=== PATIENT | male | born 1960 | race Caucasian/White ===

== ENCOUNTER 2017-04-06 08:58 | Outpatient (RCR) | payer MEDICARE, OTHER ==
[2017-04-06 09:00] LABS: BASOPHILS % (AUTO) 0 % (0-10); EOSINOPHILS # (AUTO) 0.3 10^3/uL (0.0-0.3); EOSINOPHILS % (AUTO) 3 % (0-10); LYMPHOCYTES # (AUTO) 3.5 X 10^3 (1.0-4.0); LYMPHOCYTES % (AUTO) 27 % (12-44); MEAN CORPUSCULAR HEMOGLOBIN 27 PG (25-34); MEAN CORPUSCULAR HGB CONC 32 G/DL (32-36); MEAN CORPUSCULAR VOLUME 83 FL (80-99); MEAN PLATELET VOLUME 10.1 FL (7.4-10.4); MONOCYTES # (AUTO) 1.1 X 10^3 (0.0-1.0); MONOCYTES % (AUTO) 9 % (0-12); NEUTROPHILS # (AUTO) 7.8 X 10^3 (1.8-7.8); NEUTROPHILS % (AUTO) 61 % (42-75); PLATELET COUNT 322 10^3/uL (130-400); RED BLOOD COUNT 4.84 10^6/uL (4.35-5.85); RED CELL DISTRIBUTION WIDTH 15.8 % (10.0-14.5); WHITE BLOOD COUNT 12.7 10^3/uL (4.3-11.0)
--- NOTE | 2017-04-06 09:07 | Diagnostic Imaging Report ---
PROCEDURE: CT abdomen and pelvis without contrast. TECHNIQUE: Multiple contiguous axial images were obtained through the abdomen and pelvis without the use of intravenous contrast. INDICATION: Five-day history of right upper quadrant pain. I have no priors. FINDINGS: There is irregular soft tissue thickening and irregularity of the cecum and proximal ascending colon. There is induration and increased density of the adjacent pericolonic fat. The appendix itself is visualized and appeared unremarkable. The terminal ileum itself unobstructed and appeared intrinsically unremarkable. Medial to the abnormal segment of large bowel is an irregular mesenteric mass measuring a diameter of 3 cm. Additional smaller presumed nodes are present more cephalad. The next largest has a short axis of 1.3 cm. There is no free intraperitoneal air, and no pathological extraluminal gas collections are found. Inferior to the segment of irregular-appearing large bowel, there is a distal right external iliac chain lymph node measuring 2.2 x 1.2 cm. On the left an external iliac node at the same level has a short axis of 9 mm. There are small periaortic central retroperitoneal nodes, the largest preaortic measuring 1.5 x 0.8 cm. A majority of these had long axises of 1 cm or less. There is no abscess, and there is no small or large bowel obstruction. The liver 's evaluation limited by the absence of contrast. Its density suggests mild steatosis without an identifiable discrete mass or biliary dilatation. The adrenals are negative. There are a few shotty subcentimeter lymph nodes in the upper abdominal celiac region none of which are convincingly pathologic. The pancreas and spleen negative. The unobstructed kidneys normal. Prostate, seminal vesicles, and urinary bladder had an unremarkable appearance. The lung bases and the osseous structures unremarkable. IMPRESSION: Thickening, irregularity, and adjacent infiltration associated with the abnormal-appearing cecum and proximal ascending colon. Findings are felt suspicious for underlying carcinoma particularly given the enlargement and irregularity of adjacent mesenteric maria luisa masses. Shotty periaortic retroperitoneal adenopathy, a few subcentimeter celiac axis lymph nodes, and borderline nodes in the right greater than left external iliac chain. Separable normal appendix and unremarkable TI. While it is conceivable an inflammatory or infectious colitis account for the abnormalities, neoplasm should be excluded and when clinically appropriate endoscopic correlation recommended. Hepatic steatosis. The unopacified liver appearing otherwise nonfocal. Remaining abdominal/ pelvic solid and hollow viscera unremarkable. Report was called and stat faxed to office of Dr. Kearns @ 9:03 AM/michelle. Dictated by: Dictated on workstation # [id number]
[2017-04-06 09:19] LABS: ALANINE AMINOTRANSFERASE 36 U/L (0-55); ALBUMIN 3.8 G/DL (3.2-4.5); ANION GAP 11 MMOL/L (5-14); ASPARTATE AMINO TRANSFERASE 24 U/L (5-34); BILIRUBIN,TOTAL 0.4 MG/DL (0.1-1.0); BLOOD UREA NITROGEN 13 MG/DL (7-18); BUN/CREATININE RATIO 13; CALCIUM 8.9 MG/DL (8.5-10.1); CARBON DIOXIDE 24 MMOL/L (21-32); CHLORIDE 103 MMOL/L (98-107); CREATININE SERUM 0.97 MG/DL (0.60-1.30); GFR ESTIMATED > 60; GLUCOSE 102 MG/DL (70-105); POTASSIUM 4.2 MMOL/L (3.6-5.0); SODIUM 138 MMOL/L (135-145); TOTAL PROTEIN 7.3 G/DL (6.4-8.2)
[2017-04-07] MEDS ORDERED: OXYC-465 PO (12:27)
[2017-04-15] MEDS ORDERED: OXYC-197 PO (11:56)
[2017-04-16] MEDS ORDERED: ENOX40DI13 SQ (11:10)
[2017-05-11] MEDS ORDERED: OXYC-197 PO (11:31)
[2017-05-31] MEDS ORDERED: OXYC-465 PO (11:36)
[2017-05-31] MEDS ORDERED: BISA10SU6 RC (11:36)
[2017-05-31] MEDS ORDERED: CARV3.122 PO (11:36)
[2017-05-31] MEDS ORDERED: LEVO500T2 PO (11:36)
[2017-05-31] MEDS ORDERED: LISI-552 PO (11:36)
[2017-05-31] MEDS ORDERED: AMLO10TA2 PO (11:36)
[2017-05-31] MEDS ORDERED: VITAMIN B17 PO (11:36)
[2017-05-31] MEDS ORDERED: DOCU-143 PO (11:36)
[2017-05-31] MEDS ORDERED: FAMO-119 PO (11:36)
[2017-05-31] MEDS ORDERED: BACL10TA PO (11:36)
[2017-06-14] MEDS ORDERED: LISI10TA2 PO (10:41)
[2017-06-14] MEDS ORDERED: OXC20TCR PO (10:41)
== END 2017-07-05 | disposition home or self-care (01) ==
LOC: RAD 08:58
PROVIDERS: ATTEND Family Medicine
DX: R10.31 Right lower quadrant pain (principal)
CPT/HCPCS: 36415; 74176; 80053; 85025

== ENCOUNTER 2017-04-07 06:57 | Outpatient (CLI) | payer MEDICARE ==
[~2017-04-07] VITALS: Ht 165.1 cm; Wt 111.1 kg
[2017-04-07] MEDS ORDERED: OXYC-465 PO (12:27)
== END 2017-04-07 12:28 ==
LOC: PREOP 06:57
PROVIDERS: ATTEND Surgery
DX: Z01.818 Encounter for other preprocedural examination (principal); K63.9 Disease of intestine, unspecified

== ENCOUNTER 2017-04-08 06:52 | Day surgery (SDC) | payer MEDICARE ==
[~2017-04-08] VITALS: Ht 165.1 cm; Wt 111.1 kg
[~2017-04-08 06:52] MED LIST: OXYC-465 PO
[2017-04-08] MEDS ORDERED: NS IV 500 ML 500 ML ONE (07:12)
[2017-04-08] MEDS ORDERED: FLUMAZENIL (ROMAZICON) 0.1 MG/ML 5 ML VIAL INJ PRN (07:15)
[2017-04-08] MEDS ORDERED: NALOXONE 0.4 MG/ML 1 ML (NARCAN) VIAL IVP PRN (07:15)
[2017-04-08] MEDS ORDERED: NS IV 500 ML 500 ML IV SCH (07:15)
[2017-04-08] MEDS ORDERED: MIDAZOLAM 2 MG/2 ML (VERSED) VIAL ONE ×3 (07:24→07:25)
[2017-04-08] MEDS ORDERED: fentaNYL INJECTION 100 MCG/2 ML AMP ONE ×2 (07:25→07:50)
--- NOTE | 2017-04-08 07:27 | Conscious Sedation/ASA ---
Conscious Sedation Pre-Proced Time Reviewed: 07:27 ASA Class: 2 Airway Mallampati Classification: ([place] appropriate class) I. II. III, IV Lungs Heart ASA score ASA 1: a normal healthy patient ASA 2: a patient with a mild systemic disease (mid diabetes, controlled hypertension, obesity ASA 3: a patient with a severe systemic disease that limits activity (angina , COPD, prior Myocardial infarction) ASA 4: a patient with an incapacitating disease that is a constant threat to life (CHF, renal failure) ASA 5: a moribund patient not expected to survive 24 hrs. (ruptured aneurysm) ASA 6: a declared brain patient whose organs are being harvested. For emergent operations, add the letter E after the classification Grade 2 Sedation Plan: Discussed options with patient/fam Note The patient is an appropriate candidate to undergo the planned procedure, sedation, and anesthesia. The patient immediately re-assessed prior to indication. ASHA SALGADO MD Apr 08, 2017 7:27 am
[2017-04-08] MEDS: fentaNYL INJECTION 100 MCG/2 ML AMP IVP PRN ×4 (07:28→07:55)
[2017-04-08] MEDS: MIDAZOLAM 2 MG/2 ML (VERSED) VIAL IVP PRN ×3 (07:30→07:40)
--- NOTE | 2017-04-08 08:08 | Endoscopy Procedure Report ---
Endoscopy Report Date: Apr 08, 2017 Preoperative Diagnosis: cecal mass Study Performed: Colonoscopy Procedure Instrument: Colonoscope Endo Procedure/Findings Findings 1.: Polyp, Possible Cancer Copy Copies To 1: MONIE PEREZ MD, XAVIER M MD Apr 08, 2017 8:08 am
--- NOTE | 2017-04-08 08:09 | Discharge Inst-Simple/Standard ---
Discharge Inst-Standard Discharge Medications New, Converted or Re-Newed RX: Other Patient Instructions/Follow Up Plan of Care/Instructions/FU: to return for surgery on Tuesday, 14 April as scheduled before Activity as Tolerated: Yes Discharge Diet: No Restrictions ASHA SALGADO MD Apr 08, 2017 8:09 am
[2017-04-08 08:30] VITALS: BP 180/96
--- NOTE | 2017-04-08 08:41 | OPERATIVE REPORT ---
DATE OF SERVICE: 04/08/2017 PROCEDURES: 1. Colonoscopy. 2. Biopsy of cecal tumor. 3. Snare polypectomy x3. 4. Tattooing of cecal lesion. SURGEON: Asha Salgado MD INDICATION FOR PROCEDURE: Evaluation for right lower quadrant pain and a change in his bowel habits revealed a lesion over the cecum, on CT scan. The study was limited due to lack of intravenous contrast. He came in for formal colonoscopy for defining the lesion and planning for surgical therapy. Informed consent was obtained after reviewing the procedure in detail. DESCRIPTION OF PROCEDURE: He was placed in left lateral decubitus position and his vital signs were monitored. Conscious sedation was achieved using Versed and fentanyl. Digital rectal examination was unremarkable. The colonoscope was then introduced into the rectum and advanced all the way up to the cecum. The scope was then withdrawn slowly and the mucosa examined in a systematic fashion. FINDINGS: 1. A 5 mm pedunculated polyp at the distal transverse colon that was snared and retrieved. 2. Two polyps, about 3 mm each, adjacent to each other at the mid transverse colon. These were snared and retrieved as well. 3. A 2 mm polyp at hepatic flexure that was snared. It could not be retrieved due to technical difficulties. 4. Proliferative lesion with everted edges at the ileocecal junction, having the appearance of a carcinoma. It occupied at least 50% of the circumference of the cecum. Photo documentation and multiple biopsies were obtained. The area was then tattooed with Radha ink for identification during minimally invasive resection. He tolerated the procedure well and was taken back to the nursing area in a stable condition. IMPRESSION: Cecal mass found on CT confirmed to be a carcinoma by endoscopic appearance. Incidental multiple polyps excised. Note: The patient is scheduled to undergo robotic-assisted right hemicolectomy in 3-4 days. Job ID: [id number] DocumentID: [id number] Dictated Date: 04/08/2017 08:07:58 Hand Carver Date: 04/08/2017 08:41:22 Dictated By: ASHA SALGADO MD [facility]
[2017-04-08 08:46] VITALS: BP 156/95
[2017-04-08 09:00] VITALS: BP_SYST 138; BP_SYST 156; BP_DIAS 78; BP_DIAS 95
[2017-04-08 10:50] VITALS: BP 156/95
== END 2017-04-08 10:45 | disposition home or self-care (01) ==
LOC: ENDO 06:52
PROVIDERS: ATTEND Surgery
DX: C18.0 Malignant neoplasm of cecum (principal); D12.3 Benign neoplasm of transverse colon; F17.210 Nicotine dependence, cigarettes, uncomplicated

== ENCOUNTER 2017-04-08 09:34 | Outpatient (CLI) | payer MEDICARE ==
[~2017-04-08] VITALS: Ht 165.1 cm; Wt 111.1 kg
[2017-04-08 10:18] LABS: BASOPHILS # (AUTO) 0.1 10^3/uL (0.0-0.1); BASOPHILS % (AUTO) 1 % (0-10); EOSINOPHILS # (AUTO) 0.3 10^3/uL (0.0-0.3); EOSINOPHILS % (AUTO) 3 % (0-10); LYMPHOCYTES # (AUTO) 2.3 X 10^3 (1.0-4.0); LYMPHOCYTES % (AUTO) 24 % (12-44); MEAN CORPUSCULAR HEMOGLOBIN 27 PG (25-34); MEAN CORPUSCULAR HGB CONC 32 G/DL (32-36); MEAN CORPUSCULAR VOLUME 83 FL (80-99); MEAN PLATELET VOLUME 10.1 FL (7.4-10.4); MONOCYTES # (AUTO) 0.5 X 10^3 (0.0-1.0); MONOCYTES % (AUTO) 5 % (0-12); NEUTROPHILS # (AUTO) 6.5 X 10^3 (1.8-7.8); NEUTROPHILS % (AUTO) 68 % (42-75); PLATELET COUNT 399 10^3/uL (130-400); RED BLOOD COUNT 5.04 10^6/uL (4.35-5.85); RED CELL DISTRIBUTION WIDTH 15.6 % (10.0-14.5); WHITE BLOOD COUNT 9.5 10^3/uL (4.3-11.0)
[2017-04-08 10:39] LABS: ALANINE AMINOTRANSFERASE 28 U/L (0-55); ALBUMIN 3.9 G/DL (3.2-4.5); ANION GAP 12 MMOL/L (5-14); ASPARTATE AMINO TRANSFERASE 20 U/L (5-34); BILIRUBIN,TOTAL 0.3 MG/DL (0.1-1.0); BLOOD UREA NITROGEN 12 MG/DL (7-18); BUN/CREATININE RATIO 11; CALCIUM 9.2 MG/DL (8.5-10.1); CARBON DIOXIDE 25 MMOL/L (21-32); CHLORIDE 104 MMOL/L (98-107); CREATININE SERUM 1.06 MG/DL (0.60-1.30); GFR ESTIMATED > 60; GLUCOSE 123 MG/DL (70-105); POTASSIUM 4.2 MMOL/L (3.6-5.0); SODIUM 141 MMOL/L (135-145); TOTAL PROTEIN 7.5 G/DL (6.4-8.2)
== END 2017-04-08 10:19 | disposition home or self-care (01) ==
LOC: PREOP 09:34
PROVIDERS: ATTEND Surgery
DX: Z01.812 Encounter for preprocedural laboratory examination (principal); Z11.2 Encounter for screening for other bacterial diseases; K63.9 Disease of intestine, unspecified
CPT/HCPCS: 36415; 80053; 85025; 86850; 86900; 86901; 87081

== ENCOUNTER 2017-04-13 05:59 | Inpatient (IN) | payer MEDICARE ==
[~2017-04-13] VITALS: Ht 165.1 cm; Wt 111.1 kg
[2017-04-13] VITALS (12 sets, daily range): BP systolic 50–172; BP diastolic 74–99
[2017-04-13] MEDS ORDERED: metroNIDAZOLE 500MG/100ML IVPB 100 ML ONE (06:29)
[2017-04-13] MEDS ORDERED: ceFAZolin 2 GM/50 ML NS 50 ML ONE (06:30)
[2017-04-13] MEDS: LACTATED RINGERS 1,000 ML IV PRN ×4 (06:42→17:06)
[2017-04-13] MEDS ORDERED: metroNIDAZOLE 500 MG/100 ML IVPB (PRE-MIX) IV ONE (06:45)
[2017-04-13] MEDS ORDERED: CATHETER FLUSH 10 ML SYR IV PRN (06:45)
[2017-04-13] MEDS ORDERED: ceFAZolin 2 GM/NS 50 ML IV ONE (06:45)
[2017-04-13] MEDS ORDERED: MIDAZOLAM 2 MG/2 ML (VERSED) VIAL IV ONE (06:45)
[2017-04-13] MEDS ORDERED: fentaNYL INJECTION 100 MCG/2 ML AMP ONE ×3 (06:52→13:13)
[2017-04-13] MEDS ORDERED: ROCURONIUM 50 MG/5 ML (ZEMURON) VIAL IV ONE ×2 (06:52→08:46)
[2017-04-13] MEDS ORDERED: MIDAZOLAM 2 MG/2 ML (VERSED) VIAL ONE (06:52)
[2017-04-13] MEDS ORDERED: proPOfol 200 MG/20 ML (DIPRIVAN) VIAL IV ONE (06:52)
[2017-04-13] MEDS ORDERED: LIDOCAINE PF 2% 5 ML (XYLOCAINE) VIAL ONE (06:54)
[2017-04-13] MEDS ORDERED: ONDANSETRON 4 MG/2 ML (SDV) Z0FRAN ONE (06:55)
[2017-04-13] MEDS ORDERED: SEVOFLURANE (ULTANE) 15 ML INHAL SOLN ONE ×14 (06:55→11:42)
[2017-04-13] MEDS ORDERED: DEXAMETHASONE PF 10 MG/ML (DECADRON) VIAL ONE (06:55)
[2017-04-13] MEDS ORDERED: BUP/EPI 0.25% 1:200,000 (MARCAINE) 30 ML VIAL ONE (07:02)
--- NOTE | 2017-04-13 08:05 | Progress Note-Pre Operative ---
Pre-Operative Progress Note H&P Reviewed The H&P was reviewed, patient examined and no changes noted. Date Seen by Provider: Apr 13, 2017 Time Seen by Provider: 08:05 Date H&P Reviewed: Apr 13, 2017 Time H&P Reviewed: 08:05 Pre-Operative Diagnosis: Carcinoma of cecum ASHA SALGADO MD Apr 13, 2017 8:05 am
[2017-04-13] MEDS ORDERED: BUPIVACAINE 0.25% 30 ML (SENSORCAINE) VIAL ONE (10:59)
[2017-04-13] MEDS ORDERED: NEOSTIGMINE (BLOXIVERZ ) 1 MG/1ML 10 ML VIAL ONE (11:03)
[2017-04-13] MEDS ORDERED: GLYCOPYRROLATE 0.2 MG/ML (ROBINUL) 2 ML VIAL ONE (11:03)
[2017-04-13] MEDS ORDERED: morphine INJ 10 MG/ML 1ML (SYR OR VIAL) ONE (11:03)
[2017-04-13] MEDS ORDERED: LACTATED RINGERS 1,000 ML IV PRN (11:27)
--- NOTE | 2017-04-13 11:27 | Progress Note-Post Operative ---
Post-Operative Progess Note Surgeon (s)/Coin Machine Collector (s) Surgeon ASHA SALGADO MD Coin Machine Collector: not applicable Pre-Operative Diagnosis Carcinoma of cecum Post-Operative Diagnosis ssame Procedure & Operative Findings Date of Procedure 04/13/17 Procedure Performed/Findings robotic assisted, converted to open right wilfredo- colectomy Anesthesia Type Gen. Estimated Blood Loss Estimated blood loss (mL): 700 mL Specimens/Packing Specimens Removed right colon ASHA SALGADO MD Apr 13, 2017 11:27 am
[2017-04-13] MEDS ORDERED: ONDANSETRON 4 MG/2 ML (SDV) Z0FRAN IVP PRN ×2 (11:30→12:00)
[2017-04-13] MEDS: morphine INJ 10 MG/ML 1ML (SYR OR VIAL) IVP PRN ×2 (11:50→11:55)
[2017-04-13] MEDS: HYDROmorphone (DILAUDID) 2 MG/ML VIAL IVP PRN ×4 (12:10→12:40)
--- NOTE | 2017-04-13 12:22 | OPERATIVE REPORT ---
DATE OF SERVICE: 04/13/2017 PREOPERATIVE DIAGNOSIS: Carcinoma of the cecum. POSTOPERATIVE DIAGNOSIS: Carcinoma of the cecum. OPERATION: Robotic, converted to open, right hemicolectomy with anastomosis. SURGEON: Zain ANESTHESIA: General anesthesia. BLOOD LOSS: 700 cc FLUIDS: 3 L of crystalloid. TYPE OF WOUND: Type 3 (contaminated wound). INDICATION FOR PROCEDURE: This gentleman was found to have a carcinoma of the cecum when he was investigated for right lower quadrant pain of short duration. CT scan showed enlarged lymph glands along the ileocolic pedicle as well. He was offered minimally invasive resection using robotic assistance and intracorporal anastomosis. However, as it turned out, due to bleeding from a large lymph gland associated with the ileocolic pedicle, it was required to convert to an open procedure. Informed consent was obtained after reviewing the procedure in detail and highlighting complications of postoperative wound infection, anastomotic leak and cardiorespiratory dysfunction. DESCRIPTION OF PROCEDURE: Initially, I attempted to place a subclavian central venous catheter, but the guidewire could not be advanced. Therefore, further attempts were abandoned and our VISUAL SPECIALIST obtained a second IV access over the left upper extremity. We then proceeded with resection. ROBOTIC-ASSISTED/CONVERTED TO OPEN RIGHT HEMICOLECTOMY: Abdomen was prepared and draped in the usual sterile manner. A Ratliff catheter was placed to monitor urine output during the perioperative period. Pneumoperitoneum was established using a Veress needle introduced superolateral to the umbilicus along the left side. Intraabdominal pressure was maintained at 15 mmHg using carbon dioxide insufflation. A 12 mm trocar was placed and anatomy visualized using the high definition, 3-dimensional laparoscope associated with da Moriah system. The tumor was identified easily and found to have infiltration into the anterior abdominal wall. In addition, large lymph glands were also seen along the mesentery. Under direct view, I placed a stapler trocar over the left lower quadrant, followed by an 8 mm trocar over the suprapubic region. Another 8 mm trocar was placed over the subxiphoid region to facilitate using the robotic 3rd arm. The right side of his body was then tilted up to facilitate dissection along the right colon. The robotic system was then docked in place. Initial laparoscopic survey did not reveal any lesions on the surface of the liver. The right colon was then held up using a grasper introduced via the 3rd arm and I began the dissection along the ileocolic pedicle. Using the vessel sealing device, dissection was commenced identifying a large lymph gland along the ileocolic pedicle. While I made attempts to dissect proximal to the lymph node, severe venous bleeding was encountered and could not be controlled using robotic techniques. Therefore,a decision to convert to an open procedure was made. A 12 cm midline incision was made and the abdomen entered safely. The area was then packed for reassessment. The venous bleeding had ceased by the time abdomen was opened. Terminal ileum was transected using a OPAL-75 stapler and the ileocolic pedicle controlled using a combination of 2-0 silk transfixation sutures and Harmonic scalpel. The cluster of mesocolic lymph glands was removed en bloc with the specimen. The proximal transverse colon was then mobilized, the omentum using the Harmonic scalpel. Duodenum was carefully kept out of harm's way. The right colon was then retracted medially by incising the white line of Toldt. Right colic pedicle was controlled using Harmonic scalpel as well. The proximal transverse colon was then transected using a OPAL-75 stapler, preserving the middle colic pedicle. The specimen was then removed in preparation for anastomosis. A nowj-da-dvss anastomosis was then created using a OPAL-75 stapler. The colotomy and the common enterotomy were closed using a TA-60 stapling device. A 3-0 silk suture was placed along the crotch of the anastomosis to avoid any tension on the staple line. Omentum was then placed over the anastomosis and the abdomen irrigated with saline. Linea alba was closed using #2 Prolene. Subcutaneous tissue was approximated using 2-0 PDS suture and skin with 4-0 Vicryl in a subcuticular fashion. The trocar incisions were closed using 4-0 Vicryl in a subcuticular fashion. Marcaine 0.25% with epinephrine was infiltrated along the incisions, both preemptively and at the conclusion of the operation. He tolerated the procedure well, was extubated in the operating room and taken to the recovery room in a stable condition. [place], sponges and instruments were correct at the end of the operation. Job ID: [id number] DocumentID: [id number] Dictated Date: 04/13/2017 11:26:40 Butane Compressor Operator Date: 04/13/2017 12:21:48 Dictated By: MD CONSTANTIN HAGEN
[2017-04-13] MEDS: fentaNYL INJECTION 100 MCG/2 ML AMP IV PRN ×3 (13:36→23:10)
[2017-04-13] MEDS ORDERED: KETOROLAC 30 MG/ML VIAL IVP NR (14:45)
[2017-04-13] MEDS: ceFAZolin INJECTION 1,000 MG in NS (IVPB) 50 ML IV SCH ×2 (15:05→22:15)
[2017-04-13] MEDS: metroNIDAZOLE 500MG/100ML IVPB 100 ML IV SCH ×2 (15:41→22:14)
[2017-04-13] MEDS ORDERED: oxyCODONE/APAP 10/325MG (PERCOCET 10) TABLET PO PRN (17:15)
[2017-04-13] MEDS ORDERED: oxyCODONE/APAP 10/325MG (PERCOCET 10) TABLET PO ONE (17:29)
[2017-04-13] MEDS: oxyCODONE/APAP 10/325MG (PERCOCET 10) TABLET PO PRN (17:34)
[2017-04-13] MEDS ORDERED: NICOTINE 14 MG (NICODERM) PATCH TD NR (19:30)
[2017-04-13] MEDS ORDERED: DIAZEPAM INJ 10 MG/2 ML (VALIUM) SYR IV NR (21:00)
[2017-04-14] VITALS (10 sets, daily range): BP systolic 132–171; BP diastolic 73–88
[2017-04-14] MEDS: fentaNYL INJECTION 100 MCG/2 ML AMP IV PRN ×10 (02:03→23:51)
[2017-04-14] MEDS: LACTATED RINGERS 1,000 ML IV PRN (03:12)
[2017-04-14 03:49] LABS: BASOPHILS % (AUTO) 0 % (0-10); EOSINOPHILS % (AUTO) 0 % (0-10); LYMPHOCYTES # (AUTO) 1.7 X 10^3 (1.0-4.0); LYMPHOCYTES % (AUTO) 15 % (12-44); MEAN CORPUSCULAR HEMOGLOBIN 26 PG (25-34); MEAN CORPUSCULAR HGB CONC 32 G/DL (32-36); MEAN CORPUSCULAR VOLUME 83 FL (80-99); MEAN PLATELET VOLUME 9.6 FL (7.4-10.4); MONOCYTES # (AUTO) 1.2 X 10^3 (0.0-1.0); MONOCYTES % (AUTO) 11 % (0-12); NEUTROPHILS # (AUTO) 8.5 X 10^3 (1.8-7.8); NEUTROPHILS % (AUTO) 74 % (42-75); PLATELET COUNT 392 10^3/uL (130-400); RED BLOOD COUNT 4.18 10^6/uL (4.35-5.85); RED CELL DISTRIBUTION WIDTH 16.2 % (10.0-14.5); WHITE BLOOD COUNT 11.5 10^3/uL (4.3-11.0)
[2017-04-14 04:06] LABS: ANION GAP 8 MMOL/L (5-14); BLOOD UREA NITROGEN 14 MG/DL (7-18); BUN/CREATININE RATIO 16; CALCIUM 8.2 MG/DL (8.5-10.1); CARBON DIOXIDE 23 MMOL/L (21-32); CHLORIDE 108 MMOL/L (98-107); CREATININE SERUM 0.88 MG/DL (0.60-1.30); GFR ESTIMATED > 60; GLUCOSE 142 MG/DL (70-105); PHOSPHORUS 3.1 MG/DL (2.3-4.7); POTASSIUM 4.3 MMOL/L (3.6-5.0); SODIUM 139 MMOL/L (135-145)
[2017-04-14] MEDS ORDERED: POTASSIUM CL 10MEQ/50ML IVPB 50 ML IV SCH (06:00)
[2017-04-14] MEDS ORDERED: KCL 20 MEQ TAB (K-DUR) PO SCH (06:00)
[2017-04-14] MEDS ORDERED: MAGNESIUM 1 GM/100 ML IVPB 100 ML IV SCH (06:00)
[2017-04-14] MEDS: oxyCODONE/APAP 10/325MG (PERCOCET 10) TABLET PO PRN ×5 (06:06→23:47)
[2017-04-14] MEDS ORDERED: NICOTINE PATCH REMOVAL TP SCH (08:59)
[2017-04-14] MEDS ORDERED: SIMETHICONE 80 MG (MYLICON) CHEW ONE (09:12)
[2017-04-14] MEDS ORDERED: SIMETHICONE 80 MG (MYLICON) CHEW PO PRN (09:15)
[2017-04-14] MEDS: NICOTINE 14 MG (NICODERM) PATCH TD SCH (09:20)
[2017-04-14] MEDS: NICOTINE PATCH REMOVAL TP SCH (09:21)
[2017-04-14] MEDS ORDERED: KETOROLAC 15 MG/ML VIAL ONE (10:53)
[2017-04-14] MEDS: KETOROLAC 15 MG/ML VIAL IVP PRN ×3 (11:00→22:27)
[2017-04-14] MEDS: METOCLOPRAMIDE INJ 10 MG/2 ML (REGLAN) IVP SCH ×3 (11:04→23:44)
[2017-04-14] MEDS: ENOXAPARIN 40 MG/0.4 ML (LOVENOX) SYR SC SCH (11:05)
--- NOTE | 2017-04-14 11:14 | Progress Note-Standard ---
Standard Progress Note Progress Notes/Assess & Plan Date Seen by Provider: Apr 14, 2017 Time Seen by Provider: 11:13 Progress/Assessment & Plan postoperative pain and resolved. Will use Toradol. Incisions dry. Mild epigastric fullness possibly due to gastric dilatation. Encouraged incentive spirometry routine postoperative care. Final Diagnosis carcinoma of cecum ASHA SALGADO MD Apr 14, 2017 11:14
--- NOTE | 2017-04-14 13:49 | Anesthesia-General Post-Op ---
General Patient Condition Mental Status/LOC: Same as Preop Cardiovascular: Satisfactory Nausea/Vomiting: Absent Respiratory: Satisfactory Pain: Controlled Complications: Absent Post Op Complications Complications None Follow Up Care/Instructions Patient Instructions None needed. Anesthesia/Patient Condition Patient Condition Patient is doing well, no complaints, stable vital signs, no apparent adverse anesthesia problems. No complications reported per nursing. NORY CARTER CRNA Apr 14, 2017 13:49
[2017-04-14] MEDS ORDERED: NICOTINE 14 MG (NICODERM) PATCH TD SCH (19:00)
[2017-04-15] VITALS: BP 135/78
[2017-04-15] MEDS: fentaNYL INJECTION 100 MCG/2 ML AMP IV PRN ×8 (03:09→16:28)
[2017-04-15] MEDS: KETOROLAC 15 MG/ML VIAL IVP PRN (03:47)
[2017-04-15 04:00] VITALS: BP 133/85
[2017-04-15 04:34] LABS: BASOPHILS % (AUTO) 0 % (0-10); EOSINOPHILS # (AUTO) 0.1 10^3/uL (0.0-0.3); EOSINOPHILS % (AUTO) 1 % (0-10); LYMPHOCYTES # (AUTO) 2.8 X 10^3 (1.0-4.0); LYMPHOCYTES % (AUTO) 25 % (12-44); MEAN CORPUSCULAR HEMOGLOBIN 26 PG (25-34); MEAN CORPUSCULAR HGB CONC 31 G/DL (32-36); MEAN CORPUSCULAR VOLUME 84 FL (80-99); MEAN PLATELET VOLUME 10.2 FL (7.4-10.4); MONOCYTES # (AUTO) 0.8 X 10^3 (0.0-1.0); MONOCYTES % (AUTO) 7 % (0-12); NEUTROPHILS # (AUTO) 7.5 X 10^3 (1.8-7.8); NEUTROPHILS % (AUTO) 67 % (42-75); PLATELET COUNT 361 10^3/uL (130-400); RED BLOOD COUNT 3.97 10^6/uL (4.35-5.85); RED CELL DISTRIBUTION WIDTH 16.6 % (10.0-14.5); WHITE BLOOD COUNT 11.2 10^3/uL (4.3-11.0)
[2017-04-15 04:57] LABS: ANION GAP 10 MMOL/L (5-14); BLOOD UREA NITROGEN 13 MG/DL (7-18); BUN/CREATININE RATIO 15; CALCIUM 8.5 MG/DL (8.5-10.1); CARBON DIOXIDE 23 MMOL/L (21-32); CHLORIDE 107 MMOL/L (98-107); CREATININE SERUM 0.88 MG/DL (0.60-1.30); GFR ESTIMATED > 60; GLUCOSE 122 MG/DL (70-105); POTASSIUM 3.9 MMOL/L (3.6-5.0); SODIUM 140 MMOL/L (135-145)
[2017-04-15] MEDS: METOCLOPRAMIDE INJ 10 MG/2 ML (REGLAN) IVP SCH ×2 (06:14→11:27)
[2017-04-15] MEDS: oxyCODONE/APAP 10/325MG (PERCOCET 10) TABLET PO PRN ×2 (06:29→12:35)
[2017-04-15 08:00] VITALS: BP 125/76
[2017-04-15 08:30] VITALS: BP 130/72
[2017-04-15] MEDS: NICOTINE PATCH REMOVAL TP SCH (09:05)
[2017-04-15] MEDS: NICOTINE 14 MG (NICODERM) PATCH TD SCH ×2 (09:06→11:23)
[2017-04-15] MEDS: ENOXAPARIN 40 MG/0.4 ML (LOVENOX) SYR SC SCH (11:27)
--- NOTE | 2017-04-15 11:54 | Progress Note-Standard ---
Standard Progress Note Progress Notes/Assess & Plan Date Seen by Provider: Apr 15, 2017 Time Seen by Provider: 11:52 Progress/Assessment & Plan postoperative pain and resolved. Will use Toradol. Incisions dry. Mild epigastric fullness possibly due to gastric dilatation. Encouraged incentive spirometry routine postoperative care. 04/15/17:Doing well. Has passed flatus and had BMs. Incisions dry. Could be discharged home Final Diagnosis Carcinoma of cecum ASHA SALGADO MD Apr 15, 2017 11:54 am
[2017-04-15] MEDS ORDERED: OXYC-197 PO (11:56)
--- NOTE | 2017-04-15 11:58 | Discharge Inst-Simple/Standard ---
Discharge Inst-Standard Discharge Medications New, Converted or Re-Newed RX: RX on Chart Patient Instructions/Follow Up Plan of Care/Instructions/FU: F/U in 1 week. Please leave a message @ 0742 Activity as Tolerated: No Goal: No lifting Discharge Diet: Soft Diet ASHA SALGADO MD Apr 15, 2017 11:58 am
[2017-04-15 12:55] VITALS: BP 127/66
[2017-04-15 16:45] VITALS: BP 127/66
--- NOTE | 2017-04-15 23:09 | DISCHARGE SUMMARY ---
DATE OF SERVICE: 04/15/2017 DIAGNOSIS: Carcinoma of the cecum. OPERATION: Right hemicolectomy. This gentleman was found to have a carcinoma of the cecum with lymph node metastasis. He underwent a right hemicolectomy and has made a reasonable recovery. At the time of discharge, he is ambulating independently and has had bowel movements. He is also tolerating a soft diet. I have instructed him to contact me with any concerns over the weekend and return for a followup in 1 week. Job ID: [id number] DocumentID: [id number] Dictated Date: 04/15/2017 11:55:15 Recovery Manager Date: 04/15/2017 12:34:31 Dictated By: ASHA SALGADO MD
[2017-04-16] MEDS ORDERED: ENOX40DI13 SQ (11:10)
== END 2017-04-15 16:45 | disposition home or self-care (01) | DRG 330 ==
LOC: 4TH 05:59 → SURG 06:00 → EDSTATUS 10:30 → ICU 13:05 → 4TH 04-15 08:05 → ENPENDDIS 04-15 16:00
PROVIDERS: ADMIT Surgery; ATTEND Surgery
PROC: 8E0W4CZ Robotic Assisted Procedure of Trunk Region, Percutaneous Endoscopic Approach (ICD-10-PCS; 2017-04-13)
PROC: 0DTF0ZZ Resection of Right Large Intestine, Open Approach (ICD-10-PCS; principal; 2017-04-13 08:09)
PROC: 07BB4ZZ Excision of Mesenteric Lymphatic, Percutaneous Endoscopic Approach (ICD-10-PCS; 2017-04-13 08:09)
DX: C18.0 Malignant neoplasm of cecum (principal); K91.61 Intraoperative hemorrhage and hematoma of a digestive system organ or structure complicating a digestive system procedure; R59.0 Localized enlarged lymph nodes; M17.0 Bilateral primary osteoarthritis of knee; F17.210 Nicotine dependence, cigarettes, uncomplicated; D12.6 Benign neoplasm of colon, unspecified; C77.2 Secondary and unspecified malignant neoplasm of intra-abdominal lymph nodes
CPT/HCPCS: 36415; 80048; 83735; 84100; 85025; 88305; 88309; 93005; 94664

== ENCOUNTER 2017-05-06 05:34 | Outpatient (CLI) | payer MEDICARE ==
[~2017-05-06] VITALS: Ht 165.1 cm; Wt 111.1 kg
[~2017-05-06 05:34] MED LIST changes: +ENOX40DI13 SQ; +OXYC-197 PO
== END 2017-05-06 12:01 ==
LOC: PREOP 05:34
PROVIDERS: ATTEND Surgery
DX: Z01.818 Encounter for other preprocedural examination (principal); C18.9 Malignant neoplasm of colon, unspecified

== ENCOUNTER 2017-05-11 09:39 | Day surgery (SDC) | payer MEDICARE, OTHER ==
[~2017-05-11] VITALS: Ht 165.1 cm; Wt 111.1 kg
--- NOTE | 2017-05-11 08:51 | History & Physicial ---
History of Present Illness History of Present Illness Reason for visit/HPI For Iqzdme-p-Dgil placement to facilitate adjuvant chemotherapy Date of Admission Time Seen by Provider: 08:51 I consulted on this patient on 05/11/17 08:49 Attending Physician Asha Salgado MD Admitting Physician Colby Kearns MD Consult Allergies and Home Medications Allergies Coded Allergies: No Known Drug Allergies (Unverified , 04/07/17) Home Medications Oxycodone HCl/Acetaminophen 1 Each Tablet, 2 EACH PO Q4H PRN for ABDOMINAL PAIN , #60 Prescribed by: ASHA SALGADO on 04/15/17 1156 Past Obrxuhp-Pdvokt-Ckktrf Hx Patient Social History Marrital Status: Employed/Student: retired Alcohol Use: Occasionally Uses Smoking Status: Current Everyday Smoker Type Used: Cigarettes Recent Hopitalizations: No Immunizations Up To Date Tetanus Booster (TDap): Unknown Seasonal Allergies Seasonal Allergies: Yes Surgeries HX Surgeries: Yes Surgeries: Bowel Surgery, Tonsillectomy Respiratory Hx Respiratory Disorders: Yes Respiratory Disorders: COPD Cardiovascular Hx Cardiovascular Disorders: No Neurological Hx Neurological Disorders: No Reproductive System Hx Reproductive Disorders: No Genitourinary Hx Genitourinary Disorders: No Gastrointestinal Hx Gastrointestinal Disorders: Yes (cecal mass, RLQ pain) Musculoskeletal Hx Musculoskeletal Disorders: Yes Musculoskeletal Disorders: Arthritis Endocrine Hx Endocrine Disorders: No HEENT HX ENT Disorders: No Loss of Vision: Bilateral Hearing Impairment: Denies Cancer Hx Cancer: Yes Cancer: Colon Psychosocial Hx Psychiatric Problems: No Integumentary HX Skin/Integumentary Disorder: No Blood Transfusions Hx Blood Disorders: No Constitutional: no symptoms reported EENTM: no symptoms reported Respiratory: no symptoms reported Cardiovascular: no symptoms reported Gastrointestinal: no symptoms reported Genitourinary: no symptoms reported Musculoskeletal: joint pain, muscle pain, muscle stiffness Skin: no symptoms reported Psychiatric/Neurological: No Symptoms Reported Physical Exam Vital Signs Capillary Refill : General Appearance: No Apparent Distress HEENT: Normal ENT Inspection Neck: Normal Inspection Respiratory: Lungs Clear Cardiovascular: Regular Rate, Rhythm Gastrointestinal: Non Tender, Soft Rectal: Deferred Neurologic/Psychiatric: Alert, Oriented x3 Skin: Warm/Dry Lymphatic: No Adenopathy Assessment/Plan Assessment and Plan gentleman with node positive carcinoma of the cecum. For Thubne-e-Qlai placement Problems: ASHA SALGADO MD May 11, 2017 8:51 am
[2017-05-11] MEDS ORDERED: ceFAZolin 2 GM/50 ML NS 50 ML ONE (09:41)
[2017-05-11] MEDS ORDERED: LACTATED RINGERS 1,000 ML IV PRN (09:49)
[2017-05-11] MEDS ORDERED: SEVOFLURANE (ULTANE) 15 ML INHAL SOLN ONE (09:54)
[2017-05-11] MEDS ORDERED: ONDANSETRON 4 MG/2 ML (SDV) Z0FRAN ONE (09:54)
[2017-05-11] MEDS ORDERED: proPOfol 200 MG/20 ML (DIPRIVAN) VIAL IV ONE (09:54)
[2017-05-11] MEDS ORDERED: LACTATED RINGERS 1,000 ML IV ONE (09:54)
[2017-05-11] MEDS ORDERED: fentaNYL INJECTION 100 MCG/2 ML AMP ONE (09:54)
[2017-05-11] MEDS ORDERED: MIDAZOLAM 2 MG/2 ML (VERSED) VIAL ONE (09:55)
[2017-05-11] MEDS ORDERED: ceFAZolin 2 GM/NS 50 ML IV ONE (10:00)
[2017-05-11] MEDS ORDERED: CATHETER FLUSH 10 ML SYR IV PRN (10:00)
[2017-05-11] MEDS ORDERED: MIDAZOLAM 2 MG/2 ML (VERSED) VIAL IV ONE (10:00)
[2017-05-11 10:13] VITALS: BP 181/108
--- NOTE | 2017-05-11 10:32 | Progress Note-Pre Operative ---
Pre-Operative Progress Note H&P Reviewed The H&P was reviewed, patient examined and no changes noted. Date Seen by Provider: May 11, 2017 Time Seen by Provider: 10:32 Date H&P Reviewed: May 11, 2017 Time H&P Reviewed: 10:32 Pre-Operative Diagnosis: Carcinoma of cecum ASHA SALGADO MD May 11, 2017 10:32 am
[2017-05-11] MEDS ORDERED: BUP/EPI 0.25% 1:200,000 (MARCAINE) 30 ML VIAL INJ ONE (11:15)
[2017-05-11] MEDS ORDERED: HEParin (CENTRAL IV FLUSH) 500 UNIT/5 ML SYR IV ONE (11:15)
[2017-05-11] MEDS ORDERED: ONDANSETRON 4 MG/2 ML (SDV) Z0FRAN IVP PRN (11:30)
[2017-05-11] MEDS ORDERED: morphine INJ 10 MG/ML 1ML (SYR OR VIAL) IVP PRN (11:30)
--- NOTE | 2017-05-11 11:30 | Operative Report ---
Operative Report Date of Procedure/Surgery May 11, 2017 Surgeon (s) ASHA SALGADO MD Lard Maker (s): not applicable Post-Operative Diagnosis carcinoma of cecum Procedure Performed 1.ultrasound localization of right internal jugular vein 2. Intraoperative fluoroscopy 3. Wtbaxp-k-Fpxy placement Description of Procedure Anesthesia Type: General Estimated blood loss (mL): minimal Specimen(s) collected/removed none Description of the Procedure Indication for procedure: this gentleman is due to receive adjuvant chemotherapy following resection of a carcinoma the cecum. To facilitate this, placing an Mipuwz-m-Nxva was felt to be reasonable. Informed consent was obtained after reviewing the operative details and complications of hematoma, infection, bacteremia and malfunction of the catheter requiring replacement of the port itself Description of procedure: He was placed supine on the operative table and general anesthesia induced using a laryngeal mask airway. 2 g of Ancef administered intravenously as prophylaxis against wound infection. Sequential compression devices were placed around his legs, to minimize the risk of venous thrombosis. His neck and upper chest were prepared and draped in the usual sterile manner. Right internal jugular vein was localized using a 12 MHz ultrasound probe and a floppy guidewire introduced into the heart, under fluoroscopy. A subcutaneous pocket was created over the infra-clavicular fossa and the Bradley catheter right into the neck, in a retrograde fashion catheter was then advanced into the heart, under fluoroscopy, using the peel-away sheath. It was then pulled back to the superior vena cava, under fluoroscopy and connected to the Infuse-a- Port, that had been primed with heparinized saline. I was able to aspirate and flush the system without any difficulty. The fourth was then secured to the pectoralis tissue using Prolene sutures. The incisions were then closed using 3 -0 Vicryl for the subcutaneous tissue and 4-0 Vicryl for skin, in a subcapsular fashion. Pre-emptive analgesia was established using quarter percent Marcaine with epinephrine He tolerated the procedure well, was extubated in the operative room and taken to the recovery room in a stable condition. [place], sponges and instruments were correct at end of the operation Findings of the Procedure nnot applicable Allergies and Home Medications Allergies Coded Allergies: No Known Drug Allergies (Unverified , 04/07/17) Home Medications Oxycodone HCl/Acetaminophen 1 Each Tablet, 2 EACH PO Q4H PRN for ABDOMINAL PAIN , #60 Prescribed by: ASHA SALGADO on 04/15/17 1156 ASHA SALGADO MD May 11, 2017 11:30 am
[2017-05-11] MEDS ORDERED: OXYC-197 PO (11:31)
--- NOTE | 2017-05-11 11:32 | Discharge Inst-Simple/Standard ---
Discharge Inst-Standard Discharge Medications New, Converted or Re-Newed RX: RX on Chart Patient Instructions/Follow Up Plan of Care/Instructions/FU: dressings off in 48 hours. May use the port. Activity as Tolerated: Yes Discharge Diet: No Restrictions ASHA SALGADO MD May 11, 2017 11:32 am
[2017-05-11] MEDS: fentaNYL INJECTION 100 MCG/2 ML AMP IVP PRN ×2 (12:00→12:05)
[2017-05-11 12:30] VITALS: BP 118/75
[2017-05-11 13:00] VITALS: BP 156/95
[2017-05-11] MEDS ORDERED: oxyCODONE/APAP 5/325MG (PERCOCET 5) TABLET ONE (13:10)
[2017-05-11] MEDS ORDERED: oxyCODONE/APAP 5/325MG (PERCOCET 5) TABLET PO ONE (13:15)
[2017-05-11 13:50] VITALS: BP 156/95
--- NOTE | 2017-05-11 15:12 | Diagnostic Imaging Report ---
INDICATION: Undergoing central catheter placement. FINDINGS: Dr. Pittman utilized fluoroscopy for central line placement. 1 minute and 12 seconds of fluoroscopic time was recorded. What appears to be the central line is superimposed over the proximal right atrium. IMPRESSION: Fluoroscopy was utilized for line placement. The line is not well visualized. If further assessment is desired, a post procedure chest radiograph would be recommended. Dictated by: Dictated on workstation # [id number]
== END 2017-05-11 13:50 | disposition home or self-care (01) ==
LOC: SDC 09:39
PROVIDERS: ATTEND Surgery
DX: C18.0 Malignant neoplasm of cecum (principal); J44.9 Chronic obstructive pulmonary disease, unspecified; F17.210 Nicotine dependence, cigarettes, uncomplicated; E66.01 Morbid (severe) obesity due to excess calories; Z68.41 Body mass index [BMI] 40.0-44.9, adult
CPT/HCPCS: 87081

== ENCOUNTER 2017-05-12 10:24 | Outpatient (RCR) | payer MEDICARE, OTHER ==
[2017-05-03 15:06] LABS: BASOPHILS # (AUTO) 0.1 10^3/uL (0.0-0.1); BASOPHILS % (AUTO) 1 % (0-10); EOSINOPHILS # (AUTO) 0.5 10^3/uL (0.0-0.3); EOSINOPHILS % (AUTO) 7 % (0-10); LYMPHOCYTES # (AUTO) 2.6 X 10^3 (1.0-4.0); LYMPHOCYTES % (AUTO) 38 % (12-44); MEAN CORPUSCULAR HEMOGLOBIN 26 PG (25-34); MEAN CORPUSCULAR HGB CONC 31 G/DL (32-36); MEAN CORPUSCULAR VOLUME 85 FL (80-99); MEAN PLATELET VOLUME 9.2 FL (7.4-10.4); MONOCYTES # (AUTO) 0.7 X 10^3 (0.0-1.0); MONOCYTES % (AUTO) 11 % (0-12); NEUTROPHILS # (AUTO) 3.1 X 10^3 (1.8-7.8); NEUTROPHILS % (AUTO) 44 % (42-75); PLATELET COUNT 354 10^3/uL (130-400); RED BLOOD COUNT 4.04 10^6/uL (4.35-5.85); RED CELL DISTRIBUTION WIDTH 17.1 % (10.0-14.5)
[2017-05-03 15:38] LABS: ALANINE AMINOTRANSFERASE 28 U/L (0-55); ANION GAP 5 MMOL/L (5-14); ASPARTATE AMINO TRANSFERASE 22 U/L (5-34); BILIRUBIN,TOTAL 0.3 MG/DL (0.1-1.0); BLOOD UREA NITROGEN 10 MG/DL (7-18); BUN/CREATININE RATIO 11; CARBON DIOXIDE 31 MMOL/L (21-32); CHLORIDE 105 MMOL/L (98-107); CREATININE SERUM 0.89 MG/DL (0.60-1.30); GFR ESTIMATED > 60; GLUCOSE 113 MG/DL (70-105); HEMOLYSIS 15 (-100-29); ICTERUS 0.2 (-100-1.9); LIPEMIA 0 (-100-49); POTASSIUM 4.6 MMOL/L (3.6-5.0); SODIUM 141 MMOL/L (135-145); TOTAL PROTEIN 6.7 GM/DL (6.4-8.2)
[2017-05-31] MEDS ORDERED: BISA10SU6 RC (11:36)
[2017-05-31] MEDS ORDERED: LEVO500T2 PO (11:36)
[2017-05-31] MEDS ORDERED: BACL10TA PO (11:36)
[2017-05-31] MEDS ORDERED: OXYC-465 PO (11:36)
[2017-05-31] MEDS ORDERED: FAMO-119 PO (11:36)
[2017-05-31] MEDS ORDERED: DOCU-143 PO (11:36)
[2017-05-31] MEDS ORDERED: AMLO10TA2 PO (11:36)
[2017-05-31] MEDS ORDERED: LISI-552 PO (11:36)
[2017-05-31] MEDS ORDERED: CARV3.122 PO (11:36)
[2017-05-31] MEDS ORDERED: VITAMIN B17 PO (11:36)
[2017-06-14] MEDS ORDERED: OXC20TCR PO (10:41)
[2017-06-14] MEDS ORDERED: LISI10TA2 PO (10:41)
== END 2017-08-01 | disposition home or self-care (01) ==
LOC: ONC 10:24
PROVIDERS: ATTEND Internal Medicine Hematology & Oncology
DX: C18.0 Malignant neoplasm of cecum (principal); C77.2 Secondary and unspecified malignant neoplasm of intra-abdominal lymph nodes; F17.210 Nicotine dependence, cigarettes, uncomplicated; E66.01 Morbid (severe) obesity due to excess calories; Z68.41 Body mass index [BMI] 40.0-44.9, adult
CPT/HCPCS: 36415; 80053; 82378; 85025; 99213; 99214

== ENCOUNTER 2017-05-16 17:22 | Emergency (ER) | payer MEDICARE, OTHER ==
[~2017-05-16] VITALS: Ht 167.6 cm; Wt 106.6 kg
[~2017-05-16 17:22] MED LIST changes: +ETOMIDATE IV SOLN 20 MG/10 ML VIAL ONE; +MIDAZOLAM 5 MG/5 ML (VERSED) VIAL ONE; +SUCCINYLCHOLINE INJ 100 MG/5 ML SYR ONE; +fentaNYL INJECTION 100 MCG/2 ML AMP ONE
[2017-05-16] MEDS ORDERED: MIDAZOLAM DRIP 50 MG/NS 90 ML (TOTAL VOLUME 100 ML) IV ONE ×2 (17:45)
[2017-05-16] MEDS ORDERED: fentaNYL INJECTION 1,250 MCG in NS (IVPB) 225 ML IV ONE (17:45)
[2017-05-16] MEDS ORDERED: NS IV 500 ML 500 ML ONE (17:51)
[2017-05-16 18:02] LABS: MEAN PLATELET VOLUME 9.3 FL (7.4-10.4); RED BLOOD COUNT 4.12 10^6/uL (4.35-5.85); RED CELL DISTRIBUTION WIDTH 16.6 % (10.0-14.5); WHITE BLOOD COUNT 26.8 10^3/uL (4.3-11.0)
[2017-05-16 18:10] LABS: INR 1.1 (0.8-1.4); PROTHROMBIN TIME PATIENT 14.1 SEC (12.2-14.7)
--- NOTE | 2017-05-16 18:12 | Diagnostic Imaging Report ---
INDICATION: Unresponsive. FINDINGS: The endotracheal tube and nasogastric tube are in satisfactory position as is the right internal jugular central venous catheter. There is cardiomegaly. There is some venous congestion. There is no pleural effusion or pneumothorax. IMPRESSION: Cardiomegaly and some center point venous congestion. Dictated by: Dictated on workstation # [id number]
[2017-05-16] MEDS ORDERED: TRANEXAMIC ACID INJECTION 1,000 MG in NS (IVPB) 50 ML IV ONE (18:15)
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
[2017-05-16 18:16] LABS: PARTIAL THROMBOPLASTIN TIME 28 SEC (24-35)
[2017-05-16 18:18] LABS: ALANINE AMINOTRANSFERASE 121 U/L (0-55); ALBUMIN 3.5 GM/DL (3.2-4.5); ALCOHOL < 10 MG/DL (<10); ANION GAP 10 MMOL/L (5-14); ASPARTATE AMINO TRANSFERASE 144 U/L (5-34); BILIRUBIN,DIRECT 0.1 MG/DL (0.0-0.3); BILIRUBIN,INDIRECT 0.2 MG/DL; BILIRUBIN,TOTAL 0.3 MG/DL (0.1-1.0); BLOOD UREA NITROGEN 17 MG/DL (7-18); BUN/CREATININE RATIO 15; CALCIUM 7.9 MG/DL (8.5-10.1); CARBON DIOXIDE 21 MMOL/L (21-32); CHLORIDE 108 MMOL/L (98-107); CREATININE SERUM 1.15 MG/DL (0.60-1.30); GFR ESTIMATED > 60; GLUCOSE 225 MG/DL (70-105); MAGNESIUM 1.8 MG/DL (1.8-2.4); PHOSPHORUS 4.3 MG/DL (2.3-4.7); SODIUM 139 MMOL/L (135-145); TOTAL PROTEIN 6.2 GM/DL (6.4-8.2)
[2017-05-16 18:21] VITALS: BP 119/83
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
[2017-05-16] MEDS ORDERED: meTOprolol 5 MG/5 ML (LOPRESSOR) VIAL IV ONE (18:45)
[2017-05-16 19:18] LABS: FIBRINOGEN 321 MG/DL (221-496)
[2017-05-16] MEDS ORDERED: NS IV 1000 ML 1,000 ML ONE (19:29)
[2017-05-16] MEDS ORDERED: LACTATED RINGERS 1,000 ML IV ONE (19:29)
[2017-05-16] MEDS ORDERED: LACTATED RINGERS 1,000 ML IV SCH (19:45)
[2017-05-16] MEDS ORDERED: NS IV 1000 ML 1,000 ML IV SCH (19:45)
[2017-05-16] MEDS ORDERED: TRANEXAMIC ACID INJECTION 1,000 MG in NS (IVPB) 250 ML IV SCH (22:00)
--- OUTSIDE RECORDS SUMMARY | 2017-05-17 18:14 | XMS REPORT | Continuity of Care Document ---
Author Author [facility] Organization [facility] Address Unknown Phone Unavailable Allergies Active Description Code Type Severity Reaction Onset Reported/Identified Relationship to Patient Clinical Status Yes No Known Drug Allergies [id number] Drug Allergy Unknown N/ A 04/07/2017 Medications Problems Date Dx Coded Attending Type Code Diagnosis Diagnosed By 01/26/2017 KAMILA FLORES MD Ot V68.01 DISABILITY EXAMINATION 01/26/2017 KAMILA FLORES MD Ot V82.89 SCREEN FOR OTH SPECIF CONDITIONS 04/06/2017 KAMILA FLORES MD Ot V68.01 DISABILITY EXAMINATION 04/06/2017 KAMILA FLORES MD Ot V82.89 SCREEN FOR OTH SPECIF CONDITIONS 04/07/2017 ASHA SALGADO MD Ot K63.9 DISEASE OF INTESTINE, UNSPECIFIED 04/07/2017 ASHA SALGADO MD Ot Z01.818 ENCOUNTER FOR OTHER PREPROCEDURAL EXAMIN 04/07/2017 CHRIS YUEN, MONIE R Ot R10.31 RIGHT LOWER QUADRANT PAIN 04/08/2017 ASHA SALGADO MD Ot K63.9 DISEASE OF INTESTINE, UNSPECIFIED 04/08/2017 ASHA SALGADO MD Ot Z01.812 ENCOUNTER FOR PREPROCEDURAL LABORATORY E 04/08/2017 ASHA SALGADO MD Ot Z11.2 ENCOUNTER FOR SCREENING FOR OTHER BACTER 04/08/2017 ASHA SALGADO MD Ot 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 04/08/2017 ASHA SALGADO MD Ot 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 COLON 04/08/2017 ASHA SALGADO MD Ot F17.210 NICOTINE DEPENDENCE, CIGARETTES, UNCOMPL 04/15/2017 ASHA SALGADO MD Ot 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 04/15/2017 ASHA SALGADO MD Ot 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 COLON 04/15/2017 ASHA SALGADO MD Ot F17.210 NICOTINE DEPENDENCE, CIGARETTES, UNCOMPL 04/15/2017 ASHA SALGADO MD Ot 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 04/15/2017 ASHA SALGADO MD Ot K91.61 INTRAOP HEMOR/HEMTOM OF DGSTV SYS ORG CO 04/15/2017 ASHA SALGADO MD Ot R59.0 LOCALIZED ENLARGED LYMPH NODES 04/15/2017 ASHA SALGADO MD Ot 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 04/15/2017 ASHA SALGADO MD Ot 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 AND UNSP MALIGNANT NEOPLASM OF 04/15/2017 ASHA SALGADO MD Ot D12.6 BENIGN NEOPLASM OF COLON, UNSPECIFIED 04/15/2017 ASHA SALGADO MD, Ot F17.210 NICOTINE DEPENDENCE, CIGARETTES, UNCOMPL 04/15/2017 ASHA SALGADO MD Ot K91.61 INTRAOP HEMOR/HEMTOM OF DGSTV SYS ORG CO 04/15/2017 ASHA SALGADO MD Ot M17.0 BILATERAL PRIMARY OSTEOARTHRITIS OF KNEE 04/15/2017 ASHA SALGADO MD Ot R59.0 LOCALIZED ENLARGED LYMPH NODES 04/20/2017 ASHA SALGADO MD Ot 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 04/20/2017 ASHA SALGADO MD Ot 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 COLON 04/20/2017 ASHA SALGADO MD Ot F17.210 NICOTINE DEPENDENCE, CIGARETTES, UNCOMPL 04/28/2017 MONIE PEREZ MD R Ot R10.31 RIGHT LOWER QUADRANT PAIN 05/03/2017 KAMILA FLORES MD Ot V68.01 DISABILITY EXAMINATION 05/03/2017 KAMILA FLORES MD Ot V82.89 SCREEN FOR OTH SPECIF CONDITIONS 05/03/2017 MONIE PEREZ MD R Ot R10.31 RIGHT LOWER QUADRANT PAIN 05/05/2017 SAMIR VARGAS Ot 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 05/05/2017 SAMIR VARGAS Ot 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 AND UNSP MALIGNANT NEOPLASM OF 05/05/2017 SAMIR VARGAS Ot E66.01 MORBID (SEVERE) OBESITY DUE TO EXCESS CA 05/05/2017 SAMIR VARGAS Ot F17.210 NICOTINE DEPENDENCE, CIGARETTES, UNCOMPL 05/05/2017 SAMIR VARGAS Ot Z68.41 BODY MASS INDEX (BMI) 40.0-44.9, ADULT 05/06/2017 DAMIAN YUEN, ASHA Grimm Ot C18.9 MALIGNANT NEOPLASM OF COLON, UNSPECIFIED 05/06/2017 DAMIAN YUEN, ASHA Grimm Ot Z01.818 ENCOUNTER FOR OTHER PREPROCEDURAL EXAMIN 05/11/2017 ASHA SALGADO MD Ot 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 05/11/2017 DAMIAN YUEN, ASHA Grimm Ot E66.01 MORBID (SEVERE) OBESITY DUE TO EXCESS CA 05/11/2017 DAMIAN YUEN, ASHA Grimm Ot F17.210 NICOTINE DEPENDENCE, CIGARETTES, UNCOMPL 05/11/2017 DAMIAN YUEN, SAHA Grimm Ot J44.9 CHRONIC OBSTRUCTIVE PULMONARY DISEASE, U 05/11/2017 ASHA SALGADO MD Ot Z68.41 BODY MASS INDEX (BMI) 40.0-44.9, ADULT 05/13/2017 SANDRA YUEN, KAMILA Jacobs Ot V68.01 DISABILITY EXAMINATION 05/13/2017 SANDRA YUEN, KAMILA Jacobs Ot V82.89 SCREEN FOR OTH SPECIF CONDITIONS 05/13/2017 CHRIS YUEN, MONIE R Ot R10.31 RIGHT LOWER QUADRANT PAIN 05/13/2017 ALICIA, BOBCARLA N Ot 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 05/13/2017 ALICIA, BOBCARLA N Ot 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 AND UNSP MALIGNANT NEOPLASM OF 05/13/2017 ALICIA, BOBAN N Ot E66.01 MORBID (SEVERE) OBESITY DUE TO EXCESS CA 05/13/2017 ALICIA, BOBAN N Ot F17.210 NICOTINE DEPENDENCE, CIGARETTES, UNCOMPL 05/13/2017 ALICIA BOBAN N Ot Z68.41 BODY MASS INDEX (BMI) 40.0-44.9, ADULT 05/13/2017 ALICIA, BOBAN N Ot 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 05/13/2017 ALICIA, BOBAN N Ot 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 AND UNSP MALIGNANT NEOPLASM OF 05/13/2017 ALICIA, BOBAN N Ot E66.01 MORBID (SEVERE) OBESITY DUE TO EXCESS CA 05/13/2017 ALICIA, BOBAN N Ot F17.210 NICOTINE DEPENDENCE, CIGARETTES, UNCOMPL 05/13/2017 ALICIA BOBAN N Ot Z68.41 BODY MASS INDEX (BMI) 40.0-44.9, ADULT 05/13/2017 CHRIS YUEN, MONIE Fiore Ot R10.31 RIGHT LOWER QUADRANT PAIN Procedures Code Description Performed By Performed On [id number] EXCISION OF MESENTERIC LYMPHATIC, PERC E 04/13/2017 [id number] RESECTION OF RIGHT LARGE INTESTINE, OPEN 04/13/2017 [id number] ROBOTIC ASSISTED PROCEDURE OF TRUNK, PER 04/13/2017 Results Test Result Range Complete blood count (CBC) with automated white blood cell (WBC) differential - 04/06/17 08:53 Blood leukocytes automated count (number/volume) 12.7 10*3/ uL 4.3-11.0 Blood erythrocytes automated count (number/volume) 4.84 10*6 /uL 4.35-5.85 Venous blood hemoglobin measurement (mass/volume) 12.9 g/dL 13.3-17.7 Blood hematocrit (volume fraction) 40 % 40-54 Automated erythrocyte mean corpuscular volume 83 [foz_us] 80-99 Automated erythrocyte mean corpuscular hemoglobin (mass per erythrocyte) 27 pg 25-34 Automated erythrocyte mean corpuscular hemoglobin concentration measurement ( mass/volume) 32 g/dL 32-36 Automated erythrocyte distribution width ratio 15.8 % 10.0-14.5 Automated blood platelet count (count/volume) 322 10*3/uL 130-400 Automated blood platelet mean volume measurement 10.1 [foz_ us] 7.4-10.4 Automated blood neutrophils/100 leukocytes 61 % 42-75 Automated blood lymphocytes/100 leukocytes 27 % 12-44 Blood monocytes/100 leukocytes 9 % 0-12 Automated blood eosinophils/100 leukocytes 3 % 0-10 Automated blood basophils/100 leukocytes 0 % 0-10 Blood neutrophils automated count (number/volume) 7.8 10*3 1.8-7.8 Blood lymphocytes automated count (number/volume) 3.5 10*3 1.0-4.0 Blood monocytes automated count (number/volume) 1.1 10*3 0.0-1.0 Automated eosinophil count 0.3 10*3/uL 0.0-0.3 Automated blood basophil count (count/volume) 0.0 10*3/uL 0.0-0.1 Comprehensive metabolic panel - 04/06/17 08:53 Serum or plasma sodium measurement (moles/volume) 138 mmol/ L 135-145 Serum or plasma potassium measurement (moles/volume) 4.2 mmol/L 3.6-5.0 Serum or plasma chloride measurement (moles/volume) 103 mmol /L 98-107 Carbon dioxide 24 mmol/L 21-32 Serum or plasma anion gap determination (moles/volume) 11 mmol/L 5-14 Serum or plasma urea nitrogen measurement (mass/volume) 13 mg/dL 7-18 Serum or plasma creatinine measurement (mass/volume) 0.97 mg /dL 0.60-1.30 Serum or plasma urea nitrogen/creatinine mass ratio 13 NRG Serum or plasma creatinine measurement with calculation of estimated glomerular filtration rate > NRG Serum or plasma glucose measurement (mass/volume) 102 mg/dL 70-105 Serum or plasma calcium measurement (mass/volume) 8.9 mg/dL 8.5-10.1 Serum or plasma total bilirubin measurement (mass/volume) 0.4 mg/dL 0.1-1.0 Serum or plasma alkaline phosphatase measurement (enzymatic activity/volume) 67 U/L 40-136 Serum or plasma aspartate aminotransferase measurement (enzymatic activity/ volume) 24 U/L 5-34 Serum or plasma alanine aminotransferase measurement (enzymatic activity/volume ) 36 U/L 0-55 Serum or plasma protein measurement (mass/volume) 7.3 g/dL 6.4-8.2 Serum or plasma albumin measurement (mass/volume) 3.8 g/dL 3.2-4.5 Complete blood count (CBC) with automated white blood cell (WBC) differential - 04/08/17 09:40 Blood leukocytes automated count (number/volume) 9.5 10*3/ uL 4.3-11.0 Blood erythrocytes automated count (number/volume) 5.04 10*6 /uL 4.35-5.85 Venous blood hemoglobin measurement (mass/volume) 13.4 g/dL 13.3-17.7 Blood hematocrit (volume fraction) 42 % 40-54 Automated erythrocyte mean corpuscular volume 83 [foz_us] 80-99 Automated erythrocyte mean corpuscular hemoglobin (mass per erythrocyte) 27 pg 25-34 Automated erythrocyte mean corpuscular hemoglobin concentration measurement ( mass/volume) 32 g/dL 32-36 Automated erythrocyte distribution width ratio 15.6 % 10.0-14.5 Automated blood platelet count (count/volume) 399 10*3/uL 130-400 Automated blood platelet mean volume measurement 10.1 [foz_ us] 7.4-10.4 Automated blood neutrophils/100 leukocytes 68 % 42-75 Automated blood lymphocytes/100 leukocytes 24 % 12-44 Blood monocytes/100 leukocytes 5 % 0-12 Automated blood eosinophils/100 leukocytes 3 % 0-10 Automated blood basophils/100 leukocytes 1 % 0-10 Blood neutrophils automated count (number/volume) 6.5 10*3 1.8-7.8 Blood lymphocytes automated count (number/volume) 2.3 10*3 1.0-4.0 Blood monocytes automated count (number/volume) 0.5 10*3 0.0-1.0 Automated eosinophil count 0.3 10*3/uL 0.0-0.3 Automated blood basophil count (count/volume) 0.1 10*3/uL 0.0-0.1 Comprehensive metabolic panel - 04/08/17 09:40 Serum or plasma sodium measurement (moles/volume) 141 mmol/ L 135-145 Serum or plasma potassium measurement (moles/volume) 4.2 mmol/L 3.6-5.0 Serum or plasma chloride measurement (moles/volume) 104 mmol /L 98-107 Carbon dioxide 25 mmol/L 21-32 Serum or plasma anion gap determination (moles/volume) 12 mmol/L 5-14 Serum or plasma urea nitrogen measurement (mass/volume) 12 mg/dL 7-18 Serum or plasma creatinine measurement (mass/volume) 1.06 mg /dL 0.60-1.30 Serum or plasma urea nitrogen/creatinine mass ratio 11 NRG Serum or plasma creatinine measurement with calculation of estimated glomerular filtration rate > NRG Serum or plasma glucose measurement (mass/volume) 123 mg/dL 70-105 Serum or plasma calcium measurement (mass/volume) 9.2 mg/dL 8.5-10.1 Serum or plasma total bilirubin measurement (mass/volume) 0.3 mg/dL 0.1-1.0 Serum or plasma alkaline phosphatase measurement (enzymatic activity/volume) 70 U/L 40-136 Serum or plasma aspartate aminotransferase measurement (enzymatic activity/ volume) 20 U/L 5-34 Serum or plasma alanine aminotransferase measurement (enzymatic activity/volume ) 28 U/L 0-55 Serum or plasma protein measurement (mass/volume) 7.5 g/dL 6.4-8.2 Serum or plasma albumin measurement (mass/volume) 3.9 g/dL 3.2-4.5 Blood type T Indirect antibody screen panel - 04/08/17 09:40 ABO+Rh group AN NRG Blood group antibody screen NEGATIVE NRG Methicillin resistant Staphylococcus aureus (MRSA) screening culture - 09:40 Methicillin resistant Staphylococcus aureus (MRSA) screening culture NEG NRG Blood type T Indirect antibody screen panel - 04/13/17 07:02 ABO+Rh group AN NRG Transfusion band number [id number] NRG Blood group antibody screen NEGATIVE NRG Complete blood count (CBC) with automated white blood cell (WBC) differential - 04/14/17 03:36 Blood leukocytes automated count (number/volume) 11.5 10*3/ uL 4.3-11.0 Blood erythrocytes automated count (number/volume) 4.18 10*6 /uL 4.35-5.85 Venous blood hemoglobin measurement (mass/volume) 11.0 g/dL 13.3-17.7 Blood hematocrit (volume fraction) 35 % 40-54 Automated erythrocyte mean corpuscular volume 83 [foz_us] 80-99 Automated erythrocyte mean corpuscular hemoglobin (mass per erythrocyte) 26 pg 25-34 Automated erythrocyte mean corpuscular hemoglobin concentration measurement ( mass/volume) 32 g/dL 32-36 Automated erythrocyte distribution width ratio 16.2 % 10.0-14.5 Automated blood platelet count (count/volume) 392 10*3/uL 130-400 Automated blood platelet mean volume measurement 9.6 [foz_us ] 7.4-10.4 Automated blood neutrophils/100 leukocytes 74 % 42-75 Automated blood lymphocytes/100 leukocytes 15 % 12-44 Blood monocytes/100 leukocytes 11 % 0-12 Automated blood eosinophils/100 leukocytes 0 % 0-10 Automated blood basophils/100 leukocytes 0 % 0-10 Blood neutrophils automated count (number/volume) 8.5 10*3 1.8-7.8 Blood lymphocytes automated count (number/volume) 1.7 10*3 1.0-4.0 Blood monocytes automated count (number/volume) 1.2 10*3 0.0-1.0 Automated eosinophil count 0.0 10*3/uL 0.0-0.3 Automated blood basophil count (count/volume) 0.0 10*3/uL 0.0-0.1 Whole blood basic metabolic panel - 04/14/17 03:36 Serum or plasma sodium measurement (moles/volume) 139 mmol/ L 135-145 Serum or plasma potassium measurement (moles/volume) 4.3 mmol/L 3.6-5.0 Serum or plasma chloride measurement (moles/volume) 108 mmol /L 98-107 Carbon dioxide 23 mmol/L 21-32 Serum or plasma anion gap determination (moles/volume) 8 mmol/L 5-14 Serum or plasma urea nitrogen measurement (mass/volume) 14 mg/dL 7-18 Serum or plasma creatinine measurement (mass/volume) 0.88 mg /dL 0.60-1.30 Serum or plasma urea nitrogen/creatinine mass ratio 16 NRG Serum or plasma creatinine measurement with calculation of estimated glomerular filtration rate > NRG Serum or plasma glucose measurement (mass/volume) 142 mg/dL 70-105 Serum or plasma calcium measurement (mass/volume) 8.2 mg/dL 8.5-10.1 Serum or plasma phosphate measurement (mass/volume) - 04/14/17 03:36 Serum or plasma phosphate measurement (mass/volume) 3.1 mg/ dL 2.3-4.7 Magnesium - 04/14/17 03:36 Magnesium 2.0 mg/dL 1.8-2.4 Complete blood count (CBC) with automated white blood cell (WBC) differential - 04/15/17 04:01 Blood leukocytes automated count (number/volume) 11.2 10*3/ uL 4.3-11.0 Blood erythrocytes automated count (number/volume) 3.97 10*6 /uL 4.35-5.85 Venous blood hemoglobin measurement (mass/volume) 10.4 g/dL 13.3-17.7 Blood hematocrit (volume fraction) 33 % 40-54 Automated erythrocyte mean corpuscular volume 84 [foz_us] 80-99 Automated erythrocyte mean corpuscular hemoglobin (mass per erythrocyte) 26 pg 25-34 Automated erythrocyte mean corpuscular hemoglobin concentration measurement ( mass/volume) 31 g/dL 32-36 Automated erythrocyte distribution width ratio 16.6 % 10.0-14.5 Automated blood platelet count (count/volume) 361 10*3/uL 130-400 Automated blood platelet mean volume measurement 10.2 [foz_ us] 7.4-10.4 Automated blood neutrophils/100 leukocytes 67 % 42-75 Automated blood lymphocytes/100 leukocytes 25 % 12-44 Blood monocytes/100 leukocytes 7 % 0-12 Automated blood eosinophils/100 leukocytes 1 % 0-10 Automated blood basophils/100 leukocytes 0 % 0-10 Blood neutrophils automated count (number/volume) 7.5 10*3 1.8-7.8 Blood lymphocytes automated count (number/volume) 2.8 10*3 1.0-4.0 Blood monocytes automated count (number/volume) 0.8 10*3 0.0-1.0 Automated eosinophil count 0.1 10*3/uL 0.0-0.3 Automated blood basophil count (count/volume) 0.0 10*3/uL 0.0-0.1 Whole blood basic metabolic panel - 04/15/17 04:01 Serum or plasma sodium measurement (moles/volume) 140 mmol/ L 135-145 Serum or plasma potassium measurement (moles/volume) 3.9 mmol/L 3.6-5.0 Serum or plasma chloride measurement (moles/volume) 107 mmol /L 98-107 Carbon dioxide 23 mmol/L 21-32 Serum or plasma anion gap determination (moles/volume) 10 mmol/L 5-14 Serum or plasma urea nitrogen measurement (mass/volume) 13 mg/dL 7-18 Serum or plasma creatinine measurement (mass/volume) 0.88 mg /dL 0.60-1.30 Serum or plasma urea nitrogen/creatinine mass ratio 15 NRG Serum or plasma creatinine measurement with calculation of estimated glomerular filtration rate > NRG Serum or plasma glucose measurement (mass/volume) 122 mg/dL 70-105 Serum or plasma calcium measurement (mass/volume) 8.5 mg/dL 8.5-10.1 Methicillin resistant Staphylococcus aureus (MRSA) screening culture - 09:50 Methicillin resistant Staphylococcus aureus (MRSA) screening culture NEG NRG Encounters ACCT No. Visit Date/Time Discharge Status Pt. Type Provider Facility Loc./Unit Complaint [id number] 05/11/2017 09:39:00 2016 13:50:00 DIS Outpatient ASHA SALGADO MD [facility] COLON CANCER [id number] 05/06/2017 05:34:00 2016 12:01:00 DIS Outpatient ASHA SALGADO MD [facility] PREOP COLON CANCER [id number] 04/13/2017 05:59:00 2016 16:45:00 DIS Inpatient DAMIAN YUEN, ASHA Grimm [facility] 4TH CECAL MASS [id number] 04/08/2017 06:52:00 2016 10:45:00 DIS Outpatient ASHA SALGADO MD [facility] ENDO TUMOR [id number] 04/08/2017 09:34:00 2016 10:19:00 DIS Outpatient ASHA SALGADO MD [facility] PREOP CECAL MASS [id number] 04/07/2017 06:57:00 2016 12:28:00 DIS Outpatient ASHA SALGADO MD [facility] PREOP COLONOSCOPY [id number] 09/11/2014 08:44:00 2013 23:59:59 CLS Outpatient KAMILA FLORES MD [facility] RAD DDU [id number] 05/17/2017 09:45:00 PEN Preadmit SAMIR VARGAS [facility] RAD COLON CANCER C18.9 [id number] 05/12/2017 10:24:00 ACT Outpatient SAMIR VARGAS [facility] ONC [id number] 04/06/2017 08:58:00 ACT Outpatient CHRIS YEUN, MONIE Fiore [facility] RAD R10.31 RLQ ABD PAIN
== END 2017-05-16 18:21 | disposition short-term general hospital (02) ==
LOC: EDUNIT# 17:22 → ER 17:25
DX: R07.9 Chest pain, unspecified (principal); M19.90 Unspecified osteoarthritis, unspecified site; Z85.038 Personal history of other malignant neoplasm of large intestine; V89.2XXA Person injured in unspecified motor-vehicle accident, traffic, initial encounter; Y92.410 Unspecified street and highway as the place of occurrence of the external cause
CPT/HCPCS: 31500; 32551; 36415; 36430; 43760; 71010; 80048; 80076; 80320; 82962; 83605; 83735; 84100; 84484; 85027; 85379; 85384; 85610; 85730; 86850; 86900; 86901; 86920; 93041; 96374; 99291

== ENCOUNTER 2017-05-30 11:45 | Inpatient (IN) | payer OTHER, MEDICARE ==
[~2017-05-30] VITALS: Ht 165.1 cm; Wt 106.2 kg
[~2017-05-30 11:45] MED LIST changes: -ETOMIDATE IV SOLN 20 MG/10 ML VIAL ONE; -MIDAZOLAM 5 MG/5 ML (VERSED) VIAL ONE; -SUCCINYLCHOLINE INJ 100 MG/5 ML SYR ONE; -fentaNYL INJECTION 100 MCG/2 ML AMP ONE
[2017-05-30] MEDS ORDERED: oxyCODONE/APAP 10/325MG (PERCOCET 10) TABLET PO ONE (16:11)
[2017-05-30] MEDS ORDERED: oxyCODONE/APAP 10/325MG (PERCOCET 10) TABLET PO PRN (16:15)
[2017-05-30] MEDS ORDERED: BISACODYL 10 MG SUPP (DULCOLAX) PR PRN (16:30)
[2017-05-30] MEDS ORDERED: DOCUSATE SODIUM 100 MG (COLACE) CAP PO PRN (16:30)
--- NOTE | 2017-05-30 16:35 | Occ Therapy Progress Note ---
Therapy Progress Note [id number] Pt seen in room, in bed. Reported that he was too fatigued to do any OT today - "The ambulance ride wiped me out" and he also had therapy this morning. Pt oriented to rehab process and expectations for tomorrow. Pt left up in bed, family present, all needs met. YARA RICHMOND OT May 30, 2017 16:35
--- NOTE | 2017-05-30 16:43 | Physical Therapy Progress Note ---
Therapy Progress Note Visited with patient and family about beginning therapy. Patient stated he had PT on this date and that the ambulance ride "wiped me the hell out". Patient is very agreeable to begin in a.m. 1 visit LARRY JASSO PT May 30, 2017 16:43
[2017-05-30 18:00] VITALS: BP 127/78
[2017-05-30] MEDS ORDERED: LORazepam 1 MG (ATIVAN) TAB PO PRN (18:15)
[2017-05-30] MEDS: CARVEDILOL 3.125 MG (COREG) TABLET PO SCH (21:21)
[2017-05-30] MEDS: oxyCODONE/APAP 10/325MG (PERCOCET 10) TABLET PO PRN (21:21)
[2017-05-30] MEDS: oxyCODONE ER 10 MG (OxyCONTIN CR) TAB PO SCH (21:22)
[2017-05-30] MEDS: FAMOTIDINE 20 MG (PEPCID) TABLET PO SCH (21:22)
[2017-05-31] MEDS: oxyCODONE/APAP 10/325MG (PERCOCET 10) TABLET PO PRN ×6 (01:10→22:10)
[2017-05-31 05:11] VITALS: BP 123/77
[2017-05-31 07:47] LABS: BASOPHILS # (AUTO) 0.1 10^3/uL (0.0-0.1); BASOPHILS % (AUTO) 0 % (0-10); EOSINOPHILS # (AUTO) 0.6 10^3/uL (0.0-0.3); EOSINOPHILS % (AUTO) 5 % (0-10); LYMPHOCYTES % (AUTO) 23 % (12-44); MEAN CORPUSCULAR HEMOGLOBIN 27 PG (25-34); MEAN CORPUSCULAR HGB CONC 30 G/DL (32-36); MEAN CORPUSCULAR VOLUME 90 FL (80-99); MEAN PLATELET VOLUME 9.8 FL (7.4-10.4); MONOCYTES # (AUTO) 1.3 X 10^3 (0.0-1.0); MONOCYTES % (AUTO) 10 % (0-12); NEUTROPHILS % (AUTO) 62 % (42-75); PLATELET COUNT 442 10^3/uL (130-400); RED BLOOD COUNT 3.45 10^6/uL (4.35-5.85); RED CELL DISTRIBUTION WIDTH 20.3 % (10.0-14.5)
--- NOTE | 2017-05-31 08:08 | PM&R Post Admission Assessment ---
Post Admission Physician Asses The preadmission screen agrees with the post admission assessment that the patient is a good candidate for inpatient rehabilitation. The patient will have a comprehensive program of inpatient rehabilitation with a goal of maximizing level of functional independence prior to discharge home with brother. The patient will have PT/OT ninety minutes per day, each discipline, five days a week for gait, strengthening, conditioning, balance, ADLs, any patient/family/caregiver training as necessary. Speech therapy to do cognitive assessment and treat as indicated. Rehabilitation nursing to assist with bowel, bladder, skin, wound care, medication administration, pain management. Real Estate Administrative Assistant to assist with discharge planning, community reentry. SCD's for DVT prophylaxis. He appears to be well motivated to participate in three hours of therapy a day. He should be able to tolerate three hours of therapy a day from a medical and surgical standpoint. He should benefit from the three hours of therapy a day. He has a reasonable discharge plan, reasonable discharge rehabilitation goals and a supportive family. He has various comorbidities that need to be closely monitored with medications and treatments adjusted on a daily basis as needed. These include: Postop anemia Recent Bowel resection for CA Barriers to discharge for this patient who had been independent prior to this are for him to be modified independent to supervision for ADLs and mobility skills prior to discharge home with his brother, so as to lessen the burden of the caregivers. Risks for this patient include: 1. Fall 2. Fracture 3. DVT 4. Pulmonary embolism 5. Wound infection 6. Skin breakdown 7. Contractures 8. Poorly controlled pain 9. Urinary retention 10. UTI 11. Respiratory infection 12. Aspiration 13. Worsening anemia Estimated Length of Stay: 18 days Prognosis: Rehab prognosis appears good for goal of discharge home with family and HHC modified independent to supervision for ADLs and mobility skills.Once his restrictions on rt humerus frx are lifted at a later time he should be able to proceed to full [place] and then have f/u chemo for colon ca. J CARLOS ARANDA MD May 31, 2017 08:08
[2017-05-31] MEDS: CARVEDILOL 3.125 MG (COREG) TABLET PO SCH ×2 (08:17→21:08)
[2017-05-31] MEDS: FAMOTIDINE 20 MG (PEPCID) TABLET PO SCH ×2 (08:17→21:08)
[2017-05-31] MEDS: oxyCODONE ER 10 MG (OxyCONTIN CR) TAB PO SCH ×2 (08:18→21:08)
[2017-05-31] MEDS: lisINopril 20 MG (ZESTRIL) TAB PO SCH (08:18)
[2017-05-31] MEDS: amLODIPine 10 MG (NORVASC) TAB PO SCH (08:18)
[2017-05-31 08:28] LABS: ALANINE AMINOTRANSFERASE 30 U/L (0-55); ALBUMIN 3.4 GM/DL (3.2-4.5); ANION GAP 11 MMOL/L (5-14); ASPARTATE AMINO TRANSFERASE 21 U/L (5-34); BILIRUBIN,TOTAL 0.8 MG/DL (0.1-1.0); BLOOD UREA NITROGEN 12 MG/DL (7-18); BUN/CREATININE RATIO 15; CALCIUM 8.5 MG/DL (8.5-10.1); CARBON DIOXIDE 21 MMOL/L (21-32); CHLORIDE 103 MMOL/L (98-107); CREATININE SERUM 0.78 MG/DL (0.60-1.30); GFR ESTIMATED > 60; GLUCOSE 116 MG/DL (70-105); POTASSIUM 4.2 MMOL/L (3.6-5.0); SODIUM 135 MMOL/L (135-145); TOTAL PROTEIN 6.5 GM/DL (6.4-8.2)
--- NOTE | 2017-05-31 09:18 | Diagnostic Imaging Report ---
INDICATION: Hydropneumothorax. PA and lateral views of the chest are obtained. Comparison is made study of 05/16/2017. FINDINGS: There has been interval surgical change with posterior fusion of the lower thoracic spine and internal fixation device in the right upper arm. Multiple right rib fractures are noted with associated pleural reaction. There is blunting of right costophrenic sulcus likely due to pleural fluid and/or thickening. There is mild right basilar atelectasis. There is also pleural thickening laterally in the left chest wall with apparent multiple rib fractures. There is no midline shift. Right anterior chest wall port is noted with catheter tip projecting over the superior aspect right atrium. IMPRESSION: Bilateral rib fractures with associated pleural reaction and probable pleural fluid. No pneumothorax or midline shift is identified. There has been thoracic spine and right humeral internal fixation. Dictated by: Dictated on workstation # [id number]
[2017-05-31] MEDS: LEVOFLOXACIN 500 MG TAB (LEVAQUIN) PO SCH (10:36)
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
[2017-05-31] MEDS ORDERED: LEVO500T2 PO (11:36)
[2017-05-31] MEDS ORDERED: DOCU-143 PO (11:36)
[2017-05-31] MEDS ORDERED: BISA10SU6 RC (11:36)
[2017-05-31] MEDS ORDERED: BACL10TA PO (11:36)
[2017-05-31] MEDS ORDERED: OXYC-465 PO (11:36)
[2017-05-31] MEDS ORDERED: FAMO-119 PO (11:36)
[2017-05-31] MEDS ORDERED: VITAMIN B17 PO (11:36)
[2017-05-31] MEDS ORDERED: LISI-552 PO (11:36)
[2017-05-31] MEDS ORDERED: AMLO10TA2 PO (11:36)
[2017-05-31] MEDS ORDERED: CARV3.122 PO (11:36)
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
--- NOTE | 2017-05-31 13:40 | PM & R (SOAP) Progress Note ---
Subjective Time Seen by Provider: 08:10 Subjective/Events-last exam Patient was seen in his room this AM Adjusting well to unit Pain meds adjusted last night for better pain control but pain still an issue with therapies Patient Mod to max assist for transfers CXR and labs noted Review of Systems Musculoskeletal: arm pain, back pain Objective Exam Last Set of Vital Signs Vital Signs Date Time Temp Pulse Resp B/P (MAP) Pulse Ox O2 Delivery O2 Flow Rate FiO2 05/31/17 05:11 98.6 88 18 123/77 95 Room Air Capillary Refill : Less Than 3 Seconds I&O Intake and Output 05/31/17 00:00 Intake Total 150 ml Balance 150 ml Intake Oral 150 ml General: Alert, Oriented X3, Cooperative, No Acute Distress HEENT: Atraumatic, PERRLA, EOMI, Mucous Memb Moist/[place] Neck: Supple, No JVD Lungs: Clear to Auscultation Heart: Regular Rate Abdomen: Normal Bowel Sounds, Soft, No Tenderness, Other (Midline surgical scar healing well) Extremities: Other (edema rt hand) Neuro: Other (strength diminished both LES due to pain guarding at least in part) Results Lab Laboratory Tests 05/30/17 16:21: Glucometer 122H 05/31/17 07:41: White Blood Count 13.0H, Red Blood Count 3.45L, Hemoglobin 9.4L, Hematocrit 31L , Mean Corpuscular Volume 90, Mean Corpuscular Hemoglobin 27, Mean Corpuscular Hemoglobin Concent 30L, Red Cell Distribution Width 20.3H, Platelet Count 442H, Mean Platelet Volume 9.8, Neutrophils (%) (Auto) 62, Lymphocytes (%) (Auto) 23, Monocytes (%) (Auto) 10, Eosinophils (%) (Auto) 5, Basophils (%) (Auto) 0, Neutrophils # (Auto) 8.0H, Lymphocytes # (Auto) 3.0, Monocytes # (Auto) 1.3H, Eosinophils # (Auto) 0.6H, Basophils # (Auto) 0.1, Sodium Level 135, Potassium Level 4.2, Chloride Level 103, Carbon Dioxide Level 21, Anion Gap 11, Blood Urea Nitrogen 12, Creatinine 0.78, Estimat Glomerular Filtration Rate > 60, BUN/ Creatinine Ratio 15, Glucose Level 116H, Calcium Level 8.5, Total Bilirubin 0.8 , Aspartate Amino Transf (AST/SGOT) 21, Alanine Aminotransferase (ALT/SGPT) 30, Alkaline Phosphatase 320H, Total Protein 6.5, Albumin 3.4 Assessment/Plan Assessment S/P Tspine unstable frx and rt Humerus frx s/p Arthrodesis t spine Neurosurgery OSH and ORIF rt humeral frx OSH Ortho S/P colon resection for CA DR Pittman S/P central port placement RT Anterior chest Plan Continue PT/OT Pain Management TEam Conference tomorrow. F/U with DR Zain borja Central port J CARLOS ARANDA MD May 31, 2017 13:40
[2017-05-31] MEDS ORDERED: CATHETER FLUSH 10 ML SYR IV PRN (14:00)
[2017-05-31] MEDS: CATHETER FLUSH 10 ML SYR IV SCH ×2 (14:11→21:08)
--- NOTE | 2017-05-31 14:56 | Occ Therapy Progress Note ---
Therapy Progress Note 1445 to 1450 Toilet transfer (BSC over toilet to w/c) min assist (difficulty moving R leg) FIM 4, QC 3 Toileting - help to wipe bottom but pt able to manage clothing FIM 3, QC 3 YARA RICHMOND OT May 31, 2017 14:56
--- NOTE | 2017-05-31 15:23 | Therapy Group Daily Note ---
Therapy Daily Group Note Patient Education Topic Home Safety Other/Notes Pt propelled part of the way to Group before needing propelled the rest of the way due to fatigue to PT/OT Group using FWW and O2 tank. Group consisted of Introduction (Name, Where you are from and what you use to make home safer or easier to accomplish tasks), ARU meeting description and Home Safety education and discussion. Education consisted of ambulating stairs and how to do so safely, how to ambulate around house & avoid tripping hazards as well as proper/ safe way to sit or stand from seated surface. Pt participated in group discussion. Pt was propelled back to room to rest in [facility] at end of Group with all needs met. Start Time: 13:00 Stop Time: 14:15 Total Billed Treatment Time: 75 Total Billed Treatment 1,GRP KENDRA BROWNING PHOTOFLASH POWDER MIXER May 31, 2017 15:23
[2017-05-31 18:46] VITALS: BP 102/67
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
[2017-06-01] MEDS: oxyCODONE/APAP 10/325MG (PERCOCET 10) TABLET PO PRN ×5 (02:11→20:04)
[2017-06-01] MEDS: CATHETER FLUSH 10 ML SYR IV SCH ×3 (06:13→20:08)
[2017-06-01 06:25] VITALS: BP 91/51
--- NOTE | 2017-06-01 07:52 | PM & R (SOAP) Progress Note ---
Subjective Time Seen by Provider: 07:45 Subjective/Events-last exam Patient was seen in his room this AM Patient max assist for dressing Patient with therapy with TLSO on and Rt arm in sling Patient indicates that bernadette are to come out today Will f/u with RN Patient indicates that pain control better with adjustment in meds Review of Systems Musculoskeletal: arm pain, back pain Objective Exam Last Set of Vital Signs Vital Signs Date Time Temp Pulse Resp B/P (MAP) Pulse Ox O2 Delivery O2 Flow Rate FiO2 06/01/17 06:25 97.0 93 20 91/51 93 Room Air Capillary Refill : Less Than 3 Seconds I&O Intake and Output 06/01/17 00:00 Intake Total 1660 ml Output Total 2075 ml Balance -415 ml Intake Oral 1660 ml Output Urine Total 2075 ml # Bowel Movements 1 General: Alert, Oriented X3, Cooperative, No Acute Distress HEENT: Atraumatic, PERRLA, EOMI, Mucous Memb Moist/[place] Neck: Supple, No JVD Lungs: Clear to Auscultation Heart: Regular Rate Abdomen: Normal Bowel Sounds, Soft, No Tenderness, Other (Midline surgical scar healing well) Extremities: Other (edema rt hand) Neuro: Other (strength diminished both LES due to pain guarding at least in part) Results Lab Laboratory Tests 05/30/17 16:21: Glucometer 122H 05/31/17 07:41: White Blood Count 13.0H, Red Blood Count 3.45L, Hemoglobin 9.4L, Hematocrit 31L , Mean Corpuscular Volume 90, Mean Corpuscular Hemoglobin 27, Mean Corpuscular Hemoglobin Concent 30L, Red Cell Distribution Width 20.3H, Platelet Count 442H, Mean Platelet Volume 9.8, Neutrophils (%) (Auto) 62, Lymphocytes (%) (Auto) 23, Monocytes (%) (Auto) 10, Eosinophils (%) (Auto) 5, Basophils (%) (Auto) 0, Neutrophils # (Auto) 8.0H, Lymphocytes # (Auto) 3.0, Monocytes # (Auto) 1.3H, Eosinophils # (Auto) 0.6H, Basophils # (Auto) 0.1, Sodium Level 135, Potassium Level 4.2, Chloride Level 103, Carbon Dioxide Level 21, Anion Gap 11, Blood Urea Nitrogen 12, Creatinine 0.78, Estimat Glomerular Filtration Rate > 60, BUN/ Creatinine Ratio 15, Glucose Level 116H, Calcium Level 8.5, Total Bilirubin 0.8 , Aspartate Amino Transf (AST/SGOT) 21, Alanine Aminotransferase (ALT/SGPT) 30, Alkaline Phosphatase 320H, Total Protein 6.5, Albumin 3.4 05/31/17 16:09: Glucometer 126H Assessment/Plan Assessment S/P Tspine unstable frx and rt Humerus frx s/p Arthrodesis t spine Neurosurgery OSH and ORIF rt humeral frx OSH Ortho S/P colon resection for CA DR Pittman S/P central port placement RT Anterior chest Plan Continue PT/OT Pain Management. F/U with DR Pittman re Central port Recheck Labs Team Conference later today- See report for full functional update and POC and J CARLOS AVERY MD Jun 01, 2017 07:52
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
[2017-06-01 08:10] LABS: BASOPHILS # (AUTO) 0.1 10^3/uL (0.0-0.1); BASOPHILS % (AUTO) 1 % (0-10); EOSINOPHILS # (AUTO) 0.5 10^3/uL (0.0-0.3); EOSINOPHILS % (AUTO) 4 % (0-10); LYMPHOCYTES # (AUTO) 3.2 X 10^3 (1.0-4.0); LYMPHOCYTES % (AUTO) 25 % (12-44); MEAN CORPUSCULAR HEMOGLOBIN 27 PG (25-34); MEAN CORPUSCULAR HGB CONC 30 G/DL (32-36); MEAN CORPUSCULAR VOLUME 90 FL (80-99); MEAN PLATELET VOLUME 9.9 FL (7.4-10.4); MONOCYTES # (AUTO) 1.8 X 10^3 (0.0-1.0); MONOCYTES % (AUTO) 14 % (0-12); NEUTROPHILS % (AUTO) 56 % (42-75); PLATELET COUNT 475 10^3/uL (130-400); RED BLOOD COUNT 3.22 10^6/uL (4.35-5.85); RED CELL DISTRIBUTION WIDTH 19.6 % (10.0-14.5); WHITE BLOOD COUNT 12.5 10^3/uL (4.3-11.0)
[2017-06-01 08:29] LABS: ANION GAP 8 MMOL/L (5-14); BLOOD UREA NITROGEN 23 MG/DL (7-18); BUN/CREATININE RATIO 20; CALCIUM 8.5 MG/DL (8.5-10.1); CARBON DIOXIDE 25 MMOL/L (21-32); CHLORIDE 102 MMOL/L (98-107); CREATININE SERUM 1.15 MG/DL (0.60-1.30); GFR ESTIMATED > 60; GLUCOSE 125 MG/DL (70-105); POTASSIUM 4.7 MMOL/L (3.6-5.0); SODIUM 135 MMOL/L (135-145)
[2017-06-01 08:40] LABS: EOSINOPHILS % (MANUAL) 6 %; LYMPHOCYTES % (MANUAL) 33 %; NEUTROPHILS % (MANUAL) 53 %; POLYCHROMASIA MODERATE
[2017-06-01] MEDS: lisINopril 20 MG (ZESTRIL) TAB PO SCH (08:40)
[2017-06-01] MEDS: FAMOTIDINE 20 MG (PEPCID) TABLET PO SCH ×2 (08:40→20:05)
[2017-06-01] MEDS: CARVEDILOL 3.125 MG (COREG) TABLET PO SCH ×2 (08:40→20:08)
[2017-06-01] MEDS: oxyCODONE ER 10 MG (OxyCONTIN CR) TAB PO SCH ×2 (08:40→20:04)
[2017-06-01] MEDS: amLODIPine 10 MG (NORVASC) TAB PO SCH (08:40)
[2017-06-01 08:41] LABS: ANISOCYTOSIS MODERATE; HYPOCHROMASIA MODERATE; STOMATOCYTES SLIGHT
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
--- NOTE | 2017-06-01 09:59 | Physical Therapy Daily Note ---
PT Daily Note-Current Subjective Pt. states he feels better but still had discomfort in his low back that really exacerbates with walking. Likes his w/c. c/o pain in low back at 5/10, Pain Numeric Pain Scale: 5-Moderate Pain Location: Medial Location Body Site: Back Pain Description: Ache Mental Status Patient Orientation: Normal For Age Attachments: Other-See Comments (back brace clam shell) Transfers Functional [place] Measure 0=Not Assessed/NA 4=Minimal Assistance 1=Total Assistance 5=Supervision or Setup 2=Maximal Assistance 6=Modified [place] 3=Moderate Assistance 7=Complete IndependenceIRFPAI Quality Coding Scale 6 Independent with activity with or without an assistive device 5 Patient requires set up or clean up by helper. Patient completes activity by themselves 4 Supervision or touching assist (CGA). [place] provide cues , steadying assist 3 The helper provides less than half the effort to complete the activity 2 The helper provides more than half the effort to complete the activity 1 Dependent. The helper does all the effort to complete an activity 7 Patient refused to complete or attempt activity 9 The patient did not perform the activity before the current illness or injury 88 Not attempted due to Medical conditions or safety concerns Transfers (B, C, W/C) (FIM): 4 Sit to/from Stand: 4 Gait Training Does the Patient Walk?: Yes Gait (FIM): 1 Distance (FIM): 1=up to 49 ft (12x2,15x1,10x1) Gait Level of Assist: 3 Gait Persons Needed: 1 Gait Assistive Device: Cane Large Base Quad w/c to f/u, sling insitu RUE. needs cues for sequence and step length as well as placement of Qcane, fatigues very quickly Wheelchair Training Does the Pt Use a Wheelchair?: Yes Wheelchair (FIM): 5 Wheelchair Distance: 3=150 ft Wheelchair Level of Assist: 5 Type of Wheelchair: Manual assist only to lock right brake Exercises Seated Therapy Exercises: Ankle pumps, Sit to stand, Long arc quads, Hip flexion, Hip abd/add Seated Reps: 15 also leg presses at nu step x12 NuStep Minutes: 8 NuStep Workload: 1 Assessment Current Status: Good Progress PT Short Term Goals Short Term Goals Time Frame: Jun 07, 2017 Transfers (B,C,W/C) (FIM): 4 Gait (FIM): 2 Gait Distance Comment: 50' Gait Level of Assist: 4 Gait Assistive Device: Cane Large Base Quad Wheelchair Distance: 50' PT Dam Tender Assistant Goals Intermediate Goals PT Intermediate Goals Time Frame: Jun 21, 2017 Transfers (B,C,W/C) (FIM): 5 Sit to Lying (QC): 4 Lying-Sitting on Side/Bed(QC): 4 Sit to Stand (QC): 4 Rollin Roll Left to Right (QC): 4 Chair/Hov-yn-Ptlbj Xfer(QC): 4 Car Transfer (QC): 4 Gait (FIM): 5 Distance: 150' Walk 10 feet (QC): 4 Walk 10ft-Uneven Surface(QC): 4 Walk 50ft with 2 Turns (QC): 4 Walk 150 ft (QC): 4 Gait Level of Assist: 5 Gait Assistive Device: FWW Stairs (FIM): 2 # of Steps: 4 1 Step (curb) (QC): 4 4 Steps (QC): 4 Stairs Level Of Assist: 4 PT Plan Treatment/Plan Treatment Plan: Continue Plan of Care Treatment Plan: Bed Mobility, Education, Functional Activity Christopher, Functional Strength, Group Therapy, Gait, Safety, Therapeutic Exercise, Transfers Treatment Duration: Jun 21, 2017 Frequency: At least 5-7 days/Wk (IRF) Estimated Hrs Per Day: 1.5 hours per day Patient and/or Family Agrees t: Yes Safety Risks/Education Patient Education: Gait Training, Transfer Techniques, Correct Positioning, W/ C Management, Disease Process, Safety Issues Teaching Recipient: Patient Teaching Methods: Demonstration, Discussion Response to Teaching: Verbalize Understanding, Return Demonstration, Reinforcement Needed Time/GCodes Time In: 900 Time Out: 1000 Total Billed Treatment Time: 60 Total Billed Treatment 1,GT25m,EX20m,FA15m G Codes Necessary: NADIR Dc TOBACCO HANGER Jun 01, 2017 09:59
[2017-06-01] MEDS: LEVOFLOXACIN 500 MG TAB (LEVAQUIN) PO SCH (10:42)
--- NOTE | 2017-06-01 11:38 | Occupational Ther Daily Note ---
OT Current Status-Daily Note Subjective Pt alert, sitting in w/c. Pt agreed to therapy. Pt wanted to make sure when his pain meds were due, [place] reported to nrsg. Mental Status/Objective Patient Orientation: Person, Place, Time, Situation Functional [place] Measure 0=Not Assessed/NA 4=Minimal Assistance 1=Total Assistance 5=Supervision or Setup 2=Maximal Assistance 6=Modified [place] 3=Moderate Assistance 7=Complete [place] Attachments: Other-See Comments (TLSO) ADL-Treatment Pt transported to bathroom in w/c. Transferred to/from toilet using grabbar with CGA. Assist to push pants over hips and take pants/socks off of feet. Pt ambulated to shower using cane then transferred with CGA. Pt bathed self using grabbars, hand held shower, shower bench and long handle sponge. Pt required assistance to bathe and dry buttocks then dry lower feet. Mod A donning/ doffing shirt due to decrease ROM of R shldr. Max A to don pants and TSLO. After therapy, pt sitting in w/c with call light/phone in reach. All needs met in room. Functional [place] Measure 0=Not Assessed/NA 4=Minimal Assistance 1=Total Assistance 5=Supervision or Setup 2=Maximal Assistance 6=Modified [place] 3=Moderate Assistance 7=Complete IndependenceIRFPAI Quality Coding Scale 6 Independent with activity with or without an assistive device 5 Patient requires set up or clean up by helper. Patient completes activity by themselves 4 Supervision or touching assist (CGA). [place] provide cues , steadying assist 3 The helper provides less than half the effort to complete the activity 2 The helper provides more than half the effort to complete the activity 1 Dependent. The helper does all the effort to complete an activity 7 Patient refused to complete or attempt activity 9 The patient did not perform the activity before the current illness or injury 88 Not attempted due to Medical conditions or safety concerns Grooming (FIM): 6 (W/c level) Oral Hygiene (QC): 6 (w/c level) Bathing (FIM): 4 Bathing Location: L Arm, R Arm, L Upper Leg, R Upper Leg, L Lower Leg ( including foot), R Lower Leg (including foot), Chest, Abdomen, Perineal Area Shower/Bathe Self (QC): 3 Upper Body (FIM): 3 Upper Body Dressing (QC): 3 Lower Body Dressing (FIM): 2 Lower Body Dressing (QC): 2 On/Off Footwear (QC): 2 Toileting (FIM): 3 Toileting Hygiene (QC): 3 Transfers (B, C, W/C) (FIM): 4 Toilet/Commode Transfer (FIM): 4 Toilet Transfer (QC): 3 Shower Transfer(FIM): 4 OT Short Term Goals Short Term Goals Time Frame: Jun 10, 2017 Grooming(FIM): 6 Bathing(FIM): 5 Upper Body Dressing(FIM): 3 Lower Body Dressing(FIM): 3 Transfers (B,C,W/C) (FIM): 4 Additional Short Term Goals: 1-Demonstrate ADL Tasks, 2-Verbalize Understanding , 3-ImproveStrength/Christopher 1=Demonstrate adherence to instructed precautions during ADL tasks. 2=Patient will verbalize/demonstrate understanding of assistive devices/ modifications for ADL. 3=Patient will improve strength/tolerance for activity to enable patient to perform ADL's. OT Jail Goals Jail Goals Time Frame: Jun 24, 2017 Eating (FIM): 6 Eating (QC): 6 Groomin Oral Hygiene (QC): 6 Bathing(FIM): 5 Shower/Bathe Self (QC): 5 Upper Body Dressing(FIM): 4 Upper Body Dressing (QC): 3 Lower Body Dressing(FIM): 5 Lower Body Dressing (QC): 5 On/Off Footwear (QC): 5 Toileting(FIM): 6 Toileting Hygiene (QC): 6 Toilet/Commode Transfer(FIM): 6 Toilet/Commode Transfer (QC): 6 Shower Transfer(FIM): 5 Additional Goals: 1-Demonstrate ADL Tasks, 2-Verbalize Understanding, 3- ImproveStrength/Christopher 1=Demonstrate adherence to instructed precautions during ADL tasks. 2=Patient will verbalize/demonstrate understanding of assistive devices/ modifications for ADL. 3=Patient will improve strength/tolerance for activity to enable patient to perform ADL's. OT Education/Plan Problem List/Assessment Pt would benefit from skilled OT to increase his independence in basic elf care to allo whim to safely return to his home and to decrease caregiver burden. Discharge Recommendations Plan/Recommendations: Continue POC Treatment Plan/Plan of Care Patient would benefit from OT for education, treatment and training to promote independence in ADL's, mobility, safety and/or upper extremity function for ADL' s. Plan of Care: ADL Retraining, Functional Mobility, Group Exercise/Act as Ind ( education, exercise, activity tolerance, functional mobility, funct activities) , UE Funct Exercise/Act, UE Neuromus Re-Ed/Coord Treatment Duration: Jun 24, 2017 Frequency: Twice Daily (5-6 days a week) Estimated Hrs Per Day: 1.5 hours per day Agreement: Yes Rehab Potential: Good Time/GCodes Start Time: 08:00 Stop Time: 09:00 Total Time Billed (hr/min): 60 Billed Treatment Time 1 visit-ADL 4 (60 min) VIELKA PERES Jun 01, 2017 11:38
--- NOTE | 2017-06-01 13:35 | Physical Therapy Daily Note ---
PT Daily Note-Current Subjective "getting tired" Pain Numeric Pain Scale: 5-Moderate Pain Location: Medial Location Body Site: Back Pain Description: Ache Mental Status Patient Orientation: Normal For Age Transfers Functional [place] Measure 0=Not Assessed/NA 4=Minimal Assistance 1=Total Assistance 5=Supervision or Setup 2=Maximal Assistance 6=Modified [place] 3=Moderate Assistance 7=Complete IndependenceIRFPAI Quality Coding Scale 6 Independent with activity with or without an assistive device 5 Patient requires set up or clean up by helper. Patient completes activity by themselves 4 Supervision or touching assist (CGA). [place] provide cues , steadying assist 3 The helper provides less than half the effort to complete the activity 2 The helper provides more than half the effort to complete the activity 1 Dependent. The helper does all the effort to complete an activity 7 Patient refused to complete or attempt activity 9 The patient did not perform the activity before the current illness or injury 88 Not attempted due to Medical conditions or safety concerns in out bed and chair CGA min assist Gait Training Gait Assistive Device: Cane Large Base Quad 25ftx3 QC and at [facility] CGA and cues for step length and SILVIO Exercises Supine Ex: Ankle pumps, Quad Set, Rolling, Glut sets, Heel Slides Supine Reps: 12 Treatments in bed, brace and sling off, RUE elevated, [place] at hand Assessment Current Status: Good Progress PT Short Term Goals Short Term Goals Time Frame: Jun 07, 2017 Transfers (B,C,W/C) (FIM): 4 Gait (FIM): 2 Gait Distance Comment: 50' Gait Level of Assist: 4 Gait Assistive Device: Cane Large Base Quad Wheelchair Distance: 50' PT Cloth Sander Goals Cloth Sander Goals PT Senior Care Goals Time Frame: Jun 21, 2017 Transfers (B,C,W/C) (FIM): 5 Sit to Lying (QC): 4 Lying-Sitting on Side/Bed(QC): 4 Sit to Stand (QC): 4 Rollin Roll Left to Right (QC): 4 Chair/Wsk-km-[place] Xfer(QC): 4 Car Transfer (QC): 4 Gait (FIM): 5 Distance: 150' Walk 10 feet (QC): 4 Walk 10ft-Uneven Surface(QC): 4 Walk 50ft with 2 Turns (QC): 4 Walk 150 ft (QC): 4 Gait Level of Assist: 5 Gait Assistive Device: FWW Stairs (FIM): 2 # of Steps: 4 1 Step (curb) (QC): 4 4 Steps (QC): 4 Stairs Level Of Assist: 4 PT Plan Treatment/Plan Treatment Plan: Continue Plan of Care Treatment Plan: Bed Mobility, Education, Functional Activity Christopher, Functional Strength, Group Therapy, Gait, Safety, Therapeutic Exercise, Transfers Treatment Duration: Jun 21, 2017 Frequency: At least 5-7 days/Wk (IRF) Estimated Hrs Per Day: 1.5 hours per day Patient and/or Family Agrees t: Yes Safety Risks/Education Patient Education: Gait Training, Transfer Techniques, Correct Positioning, W/ C Management, Safety Issues Time/GCodes Time In: 1300 Time Out: 1330 Total Billed Treatment Time: 30 Total Billed Treatment 1,FA20,EX10 G Codes Necessary: NADIR Dc MANAGER LEADERSHIP DEVELOPMENT Jun 01, 2017 13:35
--- NOTE | 2017-06-01 14:27 | Occupational Ther Daily Note ---
OT Current Status-Daily Note Subjective Pt alert, lying in bed. Brother present in room. Pt agreed to therapy. No c/ o pain at this time. Mental Status/Objective Patient Orientation: Person, Place, Time, Situation Functional [place] Measure 0=Not Assessed/NA 4=Minimal Assistance 1=Total Assistance 5=Supervision or Setup 2=Maximal Assistance 6=Modified [place] 3=Moderate Assistance 7=Complete [place] ADL-Treatment Functional [place] Measure 0=Not Assessed/NA 4=Minimal Assistance 1=Total Assistance 5=Supervision or Setup 2=Maximal Assistance 6=Modified [place] 3=Moderate Assistance 7=Complete IndependenceIRFPAI Quality Coding Scale 6 Independent with activity with or without an assistive device 5 Patient requires set up or clean up by helper. Patient completes activity by themselves 4 Supervision or touching assist (CGA). [place] provide cues , steadying assist 3 The helper provides less than half the effort to complete the activity 2 The helper provides more than half the effort to complete the activity 1 Dependent. The helper does all the effort to complete an activity 7 Patient refused to complete or attempt activity 9 The patient did not perform the activity before the current illness or injury 88 Not attempted due to Medical conditions or safety concerns Other Treatment Pt was educated on and demonstration given for lower body adaptive equipment for dressing. Pt verbalized understanding of AE. Due to increased pain, pt unable to return demonstration to show understanding of equipment. After therapy, pt lying in bed with call light/phone in reach. All needs met in room. Education OT Patient Education: Modified ADL techniques, Use of adapted equipment Teaching Recipient: Patient Teaching Methods: Demonstration, Discussion Response to Teaching: Verbalize Understanding, Reinforcement Needed OT Short Term Goals Short Term Goals Time Frame: Jun 10, 2017 Grooming(FIM): 6 Bathing(FIM): 5 Upper Body Dressing(FIM): 3 Lower Body Dressing(FIM): 3 Transfers (B,C,W/C) (FIM): 4 Additional Short Term Goals: 1-Demonstrate ADL Tasks, 2-Verbalize Understanding , 3-ImproveStrength/Christopher 1=Demonstrate adherence to instructed precautions during ADL tasks. 2=Patient will verbalize/demonstrate understanding of assistive devices/ modifications for ADL. 3=Patient will improve strength/tolerance for activity to enable patient to perform ADL's. OT Nursing Home Goals Student Finance Specialist Goals Time Frame: Jun 24, 2017 Eating (FIM): 6 Eating (QC): 6 Groomin Oral Hygiene (QC): 6 Bathing(FIM): 5 Shower/Bathe Self (QC): 5 Upper Body Dressing(FIM): 4 Upper Body Dressing (QC): 3 Lower Body Dressing(FIM): 5 Lower Body Dressing (QC): 5 On/Off Footwear (QC): 5 Toileting(FIM): 6 Toileting Hygiene (QC): 6 Toilet/Commode Transfer(FIM): 6 Toilet/Commode Transfer (QC): 6 Shower Transfer(FIM): 5 Additional Goals: 1-Demonstrate ADL Tasks, 2-Verbalize Understanding, 3- ImproveStrength/Christopher 1=Demonstrate adherence to instructed precautions during ADL tasks. 2=Patient will verbalize/demonstrate understanding of assistive devices/ modifications for ADL. 3=Patient will improve strength/tolerance for activity to enable patient to perform ADL's. OT Education/Plan Problem List/Assessment Pt would benefit from skilled OT to increase his independence in basic elf care to allo whim to safely return to his home and to decrease caregiver burden. Discharge Recommendations Plan/Recommendations: Continue POC Treatment Plan/Plan of Care Patient would benefit from OT for education, treatment and training to promote independence in ADL's, mobility, safety and/or upper extremity function for ADL' s. Plan of Care: ADL Retraining, Functional Mobility, Group Exercise/Act as Ind ( education, exercise, activity tolerance, functional mobility, funct activities) , UE Funct Exercise/Act, UE Neuromus Re-Ed/Coord Treatment Duration: Jun 24, 2017 Frequency: Twice Daily (5-6 days a week) Estimated Hrs Per Day: 1.5 hours per day Agreement: Yes Rehab Potential: Good Time/GCodes Start Time: 13:30 Stop Time: 14:00 Total Time Billed (hr/min): 30 Billed Treatment Time 1 visit-FA 2 (30 min) VIELKA PERES Jun 01, 2017 14:27
[2017-06-01 18:23] VITALS: BP 98/63
[2017-06-02] MEDS: oxyCODONE/APAP 10/325MG (PERCOCET 10) TABLET PO PRN ×6 (00:04→23:43)
[2017-06-02] MEDS: CATHETER FLUSH 10 ML SYR IV SCH ×3 (04:14→21:03)
[2017-06-02 06:19] VITALS: BP 109/67
[2017-06-02] MEDS: FAMOTIDINE 20 MG (PEPCID) TABLET PO SCH ×2 (06:20→21:01)
[2017-06-02] MEDS: lisINopril 20 MG (ZESTRIL) TAB PO SCH (07:54)
[2017-06-02] MEDS: amLODIPine 10 MG (NORVASC) TAB PO SCH (07:55)
[2017-06-02] MEDS: oxyCODONE ER 10 MG (OxyCONTIN CR) TAB PO SCH ×2 (07:55→21:01)
[2017-06-02] MEDS: CARVEDILOL 3.125 MG (COREG) TABLET PO SCH ×2 (07:55→21:00)
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
--- NOTE | 2017-06-02 10:59 | Physical Therapy Daily Note ---
PT Daily Note-Current Subjective Patient in wheelchair pre tx, agrees to PT, has pain of 4/10 in low back. Appearance Patient in wheelchair at bedside post tx, has nurse call, phone, tray, all needs met. Mental Status Patient Orientation: Person, Place, Situation TLSO Transfers Functional [place] Measure 0=Not Assessed/NA 4=Minimal Assistance 1=Total Assistance 5=Supervision or Setup 2=Maximal Assistance 6=Modified [place] 3=Moderate Assistance 7=Complete IndependenceIRFPAI Quality Coding Scale 6 Independent with activity with or without an assistive device 5 Patient requires set up or clean up by helper. Patient completes activity by themselves 4 Supervision or touching assist (CGA). [place] provide cues , steadying assist 3 The helper provides less than half the effort to complete the activity 2 The helper provides more than half the effort to complete the activity 1 Dependent. The helper does all the effort to complete an activity 7 Patient refused to complete or attempt activity 9 The patient did not perform the activity before the current illness or injury 88 Not attempted due to Medical conditions or safety concerns Transfers (B, C, W/C) (FIM): 4 Sit to/from Stand: 4 Bed to/from Chair: 4 Patient performs a stand pivot transfer and sit to stand with CGA, cues for safety and hand placement Gait Training Gait (FIM): 1 Distance: 40'x2 Gait Level of Assist: 4 Gait Persons Needed: 1 Gait Assistive Device: Cane Large Base Quad CGA, Patient tends to lean to the right side a lot when stepping with his left leg. He seems like he will get off balance when leaning from side to side but he hasn't yet. He has some trouble stepping with his right leg. Slow, antalgic ambulation, fatigues quickly. Wheelchair Training Does the Pt Use a Wheelchair?: Yes Wheelchair (FIM): 5 Distance: 150'x2 Wheelchair Level of Assist: 5 Type of Wheelchair: Manual Exercises sit to stand 3 sets of 5, LAQ alternating for 5 min with 2# ankle weights Treatments transfers, wheelchair mobility, ambulation, functional strengthening Assessment Current Status: Fair Progress improving transfers and ambulation PT Short Term Goals Short Term Goals Time Frame: Jun 07, 2017 Transfers (B,C,W/C) (FIM): 4 Gait (FIM): 2 Gait Distance Comment: 50' Gait Level of Assist: 4 Gait Assistive Device: Cane Large Base Quad Wheelchair Distance: 50' PT Residential Goals Residential Goals PT Residential Goals Time Frame: Jun 21, 2017 Transfers (B,C,W/C) (FIM): 5 Sit to Lying (QC): 4 Lying-Sitting on Side/Bed(QC): 4 Sit to Stand (QC): 4 Rollin Roll Left to Right (QC): 4 Chair/Ith-zj-Ortny Xfer(QC): 4 Car Transfer (QC): 4 Gait (FIM): 5 Distance: 150' Walk 10 feet (QC): 4 Walk 10ft-Uneven Surface(QC): 4 Walk 50ft with 2 Turns (QC): 4 Walk 150 ft (QC): 4 Gait Level of Assist: 5 Gait Assistive Device: FWW Stairs (FIM): 2 # of Steps: 4 1 Step (curb) (QC): 4 4 Steps (QC): 4 Stairs Level Of Assist: 4 PT Plan Problem List Problem List: Activity Tolerance, Functional Strength, Safety, Balance, Gait, Transfer, Bed Mobility, ROM Treatment/Plan Treatment Plan: Continue Plan of Care Treatment Plan: Bed Mobility, Education, Functional Activity Christopher, Functional Strength, Group Therapy, Gait, Safety, Therapeutic Exercise, Transfers Treatment Duration: Jun 21, 2017 Frequency: At least 5-7 days/Wk (IRF) Estimated Hrs Per Day: 1.5 hours per day Patient and/or Family Agrees t: Yes Safety Risks/Education Patient Education: Gait Training, Transfer Techniques, Correct Positioning, W/ C Management, Safety Issues Teaching Recipient: Patient Teaching Methods: Demonstration, Discussion Response to Teaching: Reinforcement Needed Time/GCodes Time In: 1015 Time Out: 1100 Total Billed Treatment Time: 45 Total Billed Treatment 1 visit [facility] 10' GT 20' EX 15' RICO PENA PT Jun 02, 2017 10:59
[2017-06-02] MEDS: LEVOFLOXACIN 500 MG TAB (LEVAQUIN) PO SCH (11:06)
[2017-06-02] MEDS ORDERED: ANTACID SUSP 30 ML UDC (MYLANTA) PO PRN (11:15)
--- NOTE | 2017-06-02 14:57 | Occupational Ther Daily Note ---
OT Current Status-Daily Note Subjective Pt sitting in w/c, alert. Pt agreed to therapy. No c/o pain at this time. Mental Status/Objective Patient Orientation: Person, Place, Time, Situation Functional [place] Measure 0=Not Assessed/NA 4=Minimal Assistance 1=Total Assistance 5=Supervision or Setup 2=Maximal Assistance 6=Modified [place] 3=Moderate Assistance 7=Complete [place] ADL-Treatment Functional [place] Measure 0=Not Assessed/NA 4=Minimal Assistance 1=Total Assistance 5=Supervision or Setup 2=Maximal Assistance 6=Modified [place] 3=Moderate Assistance 7=Complete IndependenceIRFPAI Quality Coding Scale 6 Independent with activity with or without an assistive device 5 Patient requires set up or clean up by helper. Patient completes activity by themselves 4 Supervision or touching assist (CGA). [place] provide cues , steadying assist 3 The helper provides less than half the effort to complete the activity 2 The helper provides more than half the effort to complete the activity 1 Dependent. The helper does all the effort to complete an activity 7 Patient refused to complete or attempt activity 9 The patient did not perform the activity before the current illness or injury 88 Not attempted due to Medical conditions or safety concerns Grooming (FIM): 6 (At w/c level, pt is able to complete.) Bathing (FIM): 5 (Supervision using shower bench, grabbar, hand held shower and long handle sponge pt is able to complete bathing. Pt tends to acting manager shower more than using shower bench.) Upper Body (FIM): 3 (After set up, pt requires assist to thread R UE into sleeve due to decrease ROM. Pt able to complete over the head and thread L UE through with minimal assistance.) Lower Body Dressing (FIM): 4 (Using AE for lower body dressing pt is able to complete with CGA in standing for safety when hiking pants over hips.) Transfers (B, C, W/C) (FIM): 5 (Close SBA using cane.) Shower Transfer(FIM): 5 (Supervision using cane, grabbars and shower bench.) Other Treatment After therapy, pt sitting in w/c with call light/phone in reach. All needs met in room. OT Short Term Goals Short Term Goals Time Frame: Jun 10, 2017 Grooming(FIM): 6 Bathing(FIM): 5 Upper Body Dressing(FIM): 3 Lower Body Dressing(FIM): 3 Transfers (B,C,W/C) (FIM): 4 Additional Short Term Goals: 1-Demonstrate ADL Tasks, 2-Verbalize Understanding , 3-ImproveStrength/Christopher 1=Demonstrate adherence to instructed precautions during ADL tasks. 2=Patient will verbalize/demonstrate understanding of assistive devices/ modifications for ADL. 3=Patient will improve strength/tolerance for activity to enable patient to perform ADL's. OT Hat Body Sorter Goals Hat Body Sorter Goals Time Frame: Jun 24, 2017 Eating (FIM): 6 Eating (QC): 6 Groomin Oral Hygiene (QC): 6 Bathing(FIM): 5 Shower/Bathe Self (QC): 5 Upper Body Dressing(FIM): 4 Upper Body Dressing (QC): 3 Lower Body Dressing(FIM): 5 Lower Body Dressing (QC): 5 On/Off Footwear (QC): 5 Toileting(FIM): 6 Toileting Hygiene (QC): 6 Toilet/Commode Transfer(FIM): 6 Toilet/Commode Transfer (QC): 6 Shower Transfer(FIM): 5 Additional Goals: 1-Demonstrate ADL Tasks, 2-Verbalize Understanding, 3- ImproveStrength/Christopher 1=Demonstrate adherence to instructed precautions during ADL tasks. 2=Patient will verbalize/demonstrate understanding of assistive devices/ modifications for ADL. 3=Patient will improve strength/tolerance for activity to enable patient to perform ADL's. OT Education/Plan Problem List/Assessment Pt would benefit from skilled OT to increase his independence in basic elf care to allo whim to safely return to his home and to decrease caregiver burden. Discharge Recommendations Plan/Recommendations: Continue POC Treatment Plan/Plan of Care Patient would benefit from OT for education, treatment and training to promote independence in ADL's, mobility, safety and/or upper extremity function for ADL' s. Plan of Care: ADL Retraining, Functional Mobility, Group Exercise/Act as Ind ( education, exercise, activity tolerance, functional mobility, funct activities) , UE Funct Exercise/Act, UE Neuromus Re-Ed/Coord Treatment Duration: Jun 24, 2017 Frequency: Twice Daily (5-6 days a week) Estimated Hrs Per Day: 1.5 hours per day Agreement: Yes Rehab Potential: Good Time/GCodes Start Time: 08:00 Stop Time: 09:00 Total Time Billed (hr/min): 60 Billed Treatment Time 1 visit-ADL 4 (60 min) VIELKA PERES Jun 02, 2017 14:57
--- NOTE | 2017-06-02 15:02 | Occupational Ther Daily Note ---
OT Current Status-Daily Note Subjective Pt sitting in w/c, alert. Pt agreed to therapy. No c/o pain at this time. Pt c/o fatigue. Mental Status/Objective Patient Orientation: Person, Place, Time, Situation Functional [place] Measure 0=Not Assessed/NA 4=Minimal Assistance 1=Total Assistance 5=Supervision or Setup 2=Maximal Assistance 6=Modified [place] 3=Moderate Assistance 7=Complete [place] ADL-Treatment Functional [place] Measure 0=Not Assessed/NA 4=Minimal Assistance 1=Total Assistance 5=Supervision or Setup 2=Maximal Assistance 6=Modified [place] 3=Moderate Assistance 7=Complete IndependenceIRFPAI Quality Coding Scale 6 Independent with activity with or without an assistive device 5 Patient requires set up or clean up by helper. Patient completes activity by themselves 4 Supervision or touching assist (CGA). [place] provide cues , steadying assist 3 The helper provides less than half the effort to complete the activity 2 The helper provides more than half the effort to complete the activity 1 Dependent. The helper does all the effort to complete an activity 7 Patient refused to complete or attempt activity 9 The patient did not perform the activity before the current illness or injury 88 Not attempted due to Medical conditions or safety concerns Other Treatment Pt worked on transfers from w/c to recliner using cane. CGA with transfer for safety. Pt then was anxious about getting into and out of chair with legs raised. [place] and pt worked on modifying chair so pt would be able to pull handle. Pt then was able to recline and use leg rest. Pt then demonstrated ability to set self up with lunch and use regular utensils to cut food and feed self. Call light/phone in reach. All needs met in room. OT Short Term Goals Short Term Goals Time Frame: Jun 10, 2017 Grooming(FIM): 6 Bathing(FIM): 5 Upper Body Dressing(FIM): 3 Lower Body Dressing(FIM): 3 Transfers (B,C,W/C) (FIM): 4 Additional Short Term Goals: 1-Demonstrate ADL Tasks, 2-Verbalize Understanding , 3-ImproveStrength/Christopher 1=Demonstrate adherence to instructed precautions during ADL tasks. 2=Patient will verbalize/demonstrate understanding of assistive devices/ modifications for ADL. 3=Patient will improve strength/tolerance for activity to enable patient to perform ADL's. OT Sql Etl Developer Goals [place] Goals Time Frame: Jun 24, 2017 Eating (FIM): 6 Eating (QC): 6 Groomin Oral Hygiene (QC): 6 Bathing(FIM): 5 Shower/Bathe Self (QC): 5 Upper Body Dressing(FIM): 4 Upper Body Dressing (QC): 3 Lower Body Dressing(FIM): 5 Lower Body Dressing (QC): 5 On/Off Footwear (QC): 5 Toileting(FIM): 6 Toileting Hygiene (QC): 6 Toilet/Commode Transfer(FIM): 6 Toilet/Commode Transfer (QC): 6 Shower Transfer(FIM): 5 Additional Goals: 1-Demonstrate ADL Tasks, 2-Verbalize Understanding, 3- ImproveStrength/Christopher 1=Demonstrate adherence to instructed precautions during ADL tasks. 2=Patient will verbalize/demonstrate understanding of assistive devices/ modifications for ADL. 3=Patient will improve strength/tolerance for activity to enable patient to perform ADL's. OT Education/Plan Problem List/Assessment Pt would benefit from skilled OT to increase his independence in basic elf care to allo whim to safely return to his home and to decrease caregiver burden. Discharge Recommendations Plan/Recommendations: Continue POC Treatment Plan/Plan of Care Patient would benefit from OT for education, treatment and training to promote independence in ADL's, mobility, safety and/or upper extremity function for ADL' s. Plan of Care: ADL Retraining, Functional Mobility, Group Exercise/Act as Ind ( education, exercise, activity tolerance, functional mobility, funct activities) , UE Funct Exercise/Act, UE Neuromus Re-Ed/Coord Treatment Duration: Jun 24, 2017 Frequency: Twice Daily (5-6 days a week) Estimated Hrs Per Day: 1.5 hours per day Agreement: Yes Rehab Potential: Good Time/GCodes Start Time: 11:30 Stop Time: 12:00 Total Time Billed (hr/min): 30 Billed Treatment Time 1 visit-FA 2 (30 min) VIELKA PERES Jun 02, 2017 15:02
--- NOTE | 2017-06-02 15:26 | Physical Therapy Daily Note ---
PT Daily Note-Current Subjective Agrees to PT. no complaints. Transfers Functional [place] Measure 0=Not Assessed/NA 4=Minimal Assistance 1=Total Assistance 5=Supervision or Setup 2=Maximal Assistance 6=Modified [place] 3=Moderate Assistance 7=Complete IndependenceIRFPAI Quality Coding Scale 6 Independent with activity with or without an assistive device 5 Patient requires set up or clean up by helper. Patient completes activity by themselves 4 Supervision or touching assist (CGA). [place] provide cues , steadying assist 3 The helper provides less than half the effort to complete the activity 2 The helper provides more than half the effort to complete the activity 1 Dependent. The helper does all the effort to complete an activity 7 Patient refused to complete or attempt activity 9 The patient did not perform the activity before the current illness or injury 88 Not attempted due to Medical conditions or safety concerns Treatments Pt performed SPT x 4 reps with quad cane with CGA with skilled cues for sequencing and safety. Pt ambulated x 75 ft and 15 ft with QC with CGA followed closely with wheelchair and skilled cues for posture and safety and pt able to make a 45 degree turn. Nu step x 15 minutes to promote LE strength and functional activity tolerance. Pt in wheelchair post treatment with needs met. Assessment Current Status: Good Progress Unsteady gait noted with required CGA still. Progressing with safety and strength. PT Short Term Goals Short Term Goals Time Frame: Jun 07, 2017 Transfers (B,C,W/C) (FIM): 4 Gait (FIM): 2 Gait Distance Comment: 50' Gait Level of Assist: 4 Gait Assistive Device: Cane Large Base Quad Wheelchair Distance: 150'x2 PT Optical Element Coater Goals Optical Element Coater Goals PT Senior Living Goals Time Frame: Jun 21, 2017 Transfers (B,C,W/C) (FIM): 5 Sit to Lying (QC): 4 Lying-Sitting on Side/Bed(QC): 4 Sit to Stand (QC): 4 Rollin Roll Left to Right (QC): 4 Chair/Tac-og-Tghcf Xfer(QC): 4 Car Transfer (QC): 4 Gait (FIM): 5 Distance: 150' Walk 10 feet (QC): 4 Walk 10ft-Uneven Surface(QC): 4 Walk 50ft with 2 Turns (QC): 4 Walk 150 ft (QC): 4 Gait Level of Assist: 5 Gait Assistive Device: FWW Stairs (FIM): 2 # of Steps: 4 1 Step (curb) (QC): 4 4 Steps (QC): 4 Stairs Level Of Assist: 4 PT Plan Problem List Problem List: Activity Tolerance, Functional Strength, Safety Treatment/Plan Treatment Plan: Continue Plan of Care Treatment Plan: Bed Mobility, Education, Functional Activity Christopher, Functional Strength, Group Therapy, Gait, Safety, Therapeutic Exercise, Transfers Treatment Duration: Jun 21, 2017 Frequency: At least 5-7 days/Wk (IRF) Estimated Hrs Per Day: 1.5 hours per day Patient and/or Family Agrees t: Yes Safety Risks/Education Patient Education: Transfer Techniques, Safety Issues Teaching Recipient: Patient Teaching Methods: Demonstration, Discussion Response to Teaching: Reinforcement Needed Time/GCodes Time In: 1400 Time Out: 1445 Total Billed Treatment Time: 45 Total Billed Treatment visit GT 15 EX 15 FA 15 VIELKA FIERRO PT Jun 02, 2017 15:26
[2017-06-02 17:49] VITALS: BP 103/55
[2017-06-02] MEDS ORDERED: oxyCODONE/APAP 10/325MG (PERCOCET 10) TABLET PO PRN (18:00)
[2017-06-02] MEDS: IBUPROFEN 600 MG (MOTRIN) TAB PO PRN (19:49)
[2017-06-02] MEDS ORDERED: FAMOTIDINE 20 MG (PEPCID) TABLET PO SCH (21:00)
[2017-06-03] MEDS: IBUPROFEN 600 MG (MOTRIN) TAB PO PRN ×2 (03:54→10:31)
[2017-06-03 05:59] VITALS: BP 117/74
[2017-06-03] MEDS: CATHETER FLUSH 10 ML SYR IV SCH ×3 (06:00→20:47)
[2017-06-03] MEDS: oxyCODONE/APAP 10/325MG (PERCOCET 10) TABLET PO PRN ×3 (06:09→20:44)
[2017-06-03] MEDS: FAMOTIDINE 20 MG (PEPCID) TABLET PO SCH ×2 (08:07→20:44)
[2017-06-03] MEDS: oxyCODONE ER 10 MG (OxyCONTIN CR) TAB PO SCH ×2 (08:07→20:44)
[2017-06-03 08:08] VITALS: BP 116/71
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
[2017-06-03] MEDS ORDERED: amLODIPine 5 MG (NORVASC) TAB PO NR (10:30)
[2017-06-03] MEDS ORDERED: lisINopril 10 MG (PRINIVIL) TAB PO NR (10:30)
[2017-06-03] MEDS: CARVEDILOL 3.125 MG (COREG) TABLET PO SCH ×2 (10:31→20:44)
[2017-06-03] MEDS: LEVOFLOXACIN 500 MG TAB (LEVAQUIN) PO SCH (10:32)
--- NOTE | 2017-06-03 11:01 | Physical Therapy Daily Note ---
PT Daily Note-Current Subjective Patient in wheelchair pre tx, agrees to PT, has pain of 7/10, nurse did bring him some pain meds during tx. Appearance Patient in wheelchair at bedside post tx with nurse call, phone, tray, all needs met. Mental Status Patient Orientation: Normal For Age TLSO Transfers Functional [place] Measure 0=Not Assessed/NA 4=Minimal Assistance 1=Total Assistance 5=Supervision or Setup 2=Maximal Assistance 6=Modified [place] 3=Moderate Assistance 7=Complete IndependenceIRFPAI Quality Coding Scale 6 Independent with activity with or without an assistive device 5 Patient requires set up or clean up by helper. Patient completes activity by themselves 4 Supervision or touching assist (CGA). [place] provide cues , steadying assist 3 The helper provides less than half the effort to complete the activity 2 The helper provides more than half the effort to complete the activity 1 Dependent. The helper does all the effort to complete an activity 7 Patient refused to complete or attempt activity 9 The patient did not perform the activity before the current illness or injury 88 Not attempted due to Medical conditions or safety concerns Transfers (B, C, W/C) (FIM): 4 Sit to/from Stand: 4 Bed to/from Chair: 4 CGA, patient is slow but stable with transfers, has a lot of pain during transitions Gait Training Does the Patient Walk?: Yes Gait (FIM): 2 Distance: 50'x2 Gait Level of Assist: 4 Gait Persons Needed: 1 Gait Assistive Device: Cane Large Base Quad Patient ambulated 50'x2 with a quad cane with CGA. He ambulates very slowly, antalgic. Wheelchair Training Does the Pt Use a Wheelchair?: Yes Wheelchair (FIM): 6 Distance: 150'x2 Type of Wheelchair: Manual Exercises LAQ alternating for 5 min NuStep Minutes: 15 NuStep Workload: 4 Treatments transfers, ambulation, functional strengthening Assessment Current Status: Fair Progress Patient improving with transfers and ambulation, but patient has a lot of pain and needs frequent rest breaks PT Short Term Goals Short Term Goals Time Frame: Jun 07, 2017 Transfers (B,C,W/C) (FIM): 4 Gait (FIM): 2 Gait Distance Comment: 50' Gait Level of Assist: 4 Gait Assistive Device: Cane Large Base Quad Wheelchair Distance: 150'x2 PT Intermediate Goals Reflesher Goals PT Intermediate Goals Time Frame: Jun 21, 2017 Transfers (B,C,W/C) (FIM): 5 Sit to Lying (QC): 4 Lying-Sitting on Side/Bed(QC): 4 Sit to Stand (QC): 4 Rollin Roll Left to Right (QC): 4 Chair/Yfn-to-Atsvi Xfer(QC): 4 Car Transfer (QC): 4 Gait (FIM): 5 Distance: 150' Walk 10 feet (QC): 4 Walk 10ft-Uneven Surface(QC): 4 Walk 50ft with 2 Turns (QC): 4 Walk 150 ft (QC): 4 Gait Level of Assist: 5 Gait Assistive Device: FWW Stairs (FIM): 2 # of Steps: 4 1 Step (curb) (QC): 4 4 Steps (QC): 4 Stairs Level Of Assist: 4 PT Plan Problem List Problem List: Activity Tolerance, Functional Strength, Safety, Balance, Gait, Transfer, Bed Mobility, ROM Treatment/Plan Treatment Plan: Continue Plan of Care Treatment Plan: Bed Mobility, Education, Functional Activity Christopher, Functional Strength, Group Therapy, Gait, Safety, Therapeutic Exercise, Transfers Treatment Duration: Jun 21, 2017 Frequency: At least 5-7 days/Wk (IRF) Estimated Hrs Per Day: 1.5 hours per day Patient and/or Family Agrees t: Yes Safety Risks/Education Patient Education: Gait Training, Transfer Techniques, Correct Positioning, W/ C Management, Reviewed Don/Doff Brace, Safety Issues Teaching Recipient: Patient Teaching Methods: Demonstration, Discussion Response to Teaching: Reinforcement Needed Time/GCodes Time In: 1000 Time Out: 1100 Total Billed Treatment Time: 60 Total Billed Treatment 1 visit EX 20' [facility] 10' GT 30' RICO PENA PT Jun 03, 2017 11:01
--- NOTE | 2017-06-03 12:54 | Occupational Ther Daily Note ---
OT Current Status-Daily Note Subjective Pt alert, sitting in w/c. Pt c/o fatigue and pain, rated 5/10. Nrsg brought pain meds. Mental Status/Objective Patient Orientation: Person, Place, Time, Situation Functional [place] Measure 0=Not Assessed/NA 4=Minimal Assistance 1=Total Assistance 5=Supervision or Setup 2=Maximal Assistance 6=Modified [place] 3=Moderate Assistance 7=Complete [place] ADL-Treatment Functional [place] Measure 0=Not Assessed/NA 4=Minimal Assistance 1=Total Assistance 5=Supervision or Setup 2=Maximal Assistance 6=Modified [place] 3=Moderate Assistance 7=Complete IndependenceIRFPAI Quality Coding Scale 6 Independent with activity with or without an assistive device 5 Patient requires set up or clean up by helper. Patient completes activity by themselves 4 Supervision or touching assist (CGA). [place] provide cues , steadying assist 3 The helper provides less than half the effort to complete the activity 2 The helper provides more than half the effort to complete the activity 1 Dependent. The helper does all the effort to complete an activity 7 Patient refused to complete or attempt activity 9 The patient did not perform the activity before the current illness or injury 88 Not attempted due to Medical conditions or safety concerns Other Treatment Pt declined completing ADLs today due to fatigue and pain. Pt did agree to complete UE exercises in room. Arm bike completed with L UE only due to restrictions for R UE. 15 min duration at 15 fletcher resistance to increase strength and activity tolerance for daily functional tasks, 3 recovery breaks needed. Pt then completed resistive clothes pin activity to increase administration dean strength for daily functional tasks. Pt was able to doff socks/shoes then don socks with sock aide. Pt requested to go to restroom quickly. SBA for toilet transfer. Pt manipulated clothing by self, did not have to cleanse self at this time. After therapy, pt sitting in w/c with call light/phone in reach. All needs met in room. OT Short Term Goals Short Term Goals Time Frame: Jun 10, 2017 Grooming(FIM): 6 Bathing(FIM): 5 Upper Body Dressing(FIM): 3 Lower Body Dressing(FIM): 3 Transfers (B,C,W/C) (FIM): 4 Additional Short Term Goals: 1-Demonstrate ADL Tasks, 2-Verbalize Understanding , 3-ImproveStrength/Christopher 1=Demonstrate adherence to instructed precautions during ADL tasks. 2=Patient will verbalize/demonstrate understanding of assistive devices/ modifications for ADL. 3=Patient will improve strength/tolerance for activity to enable patient to perform ADL's. OT Business Database Analyst Goals Mcfp Goals Time Frame: Jun 24, 2017 Eating (FIM): 6 Eating (QC): 6 Groomin Oral Hygiene (QC): 6 Bathing(FIM): 5 Shower/Bathe Self (QC): 5 Upper Body Dressing(FIM): 4 Upper Body Dressing (QC): 3 Lower Body Dressing(FIM): 5 Lower Body Dressing (QC): 5 On/Off Footwear (QC): 5 Toileting(FIM): 6 Toileting Hygiene (QC): 6 Toilet/Commode Transfer(FIM): 6 Toilet/Commode Transfer (QC): 6 Shower Transfer(FIM): 5 Additional Goals: 1-Demonstrate ADL Tasks, 2-Verbalize Understanding, 3- ImproveStrength/Christopher 1=Demonstrate adherence to instructed precautions during ADL tasks. 2=Patient will verbalize/demonstrate understanding of assistive devices/ modifications for ADL. 3=Patient will improve strength/tolerance for activity to enable patient to perform ADL's. OT Education/Plan Problem List/Assessment Pt would benefit from skilled OT to increase his independence in basic elf care to allo whim to safely return to his home and to decrease caregiver burden. Discharge Recommendations Plan/Recommendations: Continue POC Treatment Plan/Plan of Care Patient would benefit from OT for education, treatment and training to promote independence in ADL's, mobility, safety and/or upper extremity function for ADL' s. Plan of Care: ADL Retraining, Functional Mobility, Group Exercise/Act as Ind ( education, exercise, activity tolerance, functional mobility, funct activities) , UE Funct Exercise/Act, UE Neuromus Re-Ed/Coord Treatment Duration: Jun 24, 2017 Frequency: Twice Daily (5-6 days a week) Estimated Hrs Per Day: 1.5 hours per day Agreement: Yes Rehab Potential: Good Time/GCodes Start Time: 08:00 Stop Time: 09:00 Total Time Billed (hr/min): 60 Billed Treatment Time 1 visit-EX 3 (40 min) FA 1 (20 min) VIELKA PERES Jun 03, 2017 12:54
--- NOTE | 2017-06-03 14:43 | Therapy Group Daily Note ---
Therapy Daily Group Note Other/Notes Pt. attended group PT OT session via w/c. Pt. propelled indep. Pt. very pleasant and enjoyed socialization participating in table activities, introduced himself and made conversation and laughter. Pt. was familiar with others in his group and was especially helpful to those who were not familiar with the activities and or needed frequent cues and reminders.Activities were in groups of 4 at table promoting problem solving, fine motor function, UE strengthening against gravity as well as coordination. Pt. to room after Rx with juarez at hand Start Time: 13:00 Stop Time: 14:20 Total Billed Treatment Time: 80 Total Billed Treatment 1,GRP NADIR SRIVASTAVA MARKETING OPERATIONS COORDINATOR Jun 03, 2017 14:43
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
[2017-06-03 18:00] VITALS: BP 110/71
[2017-06-03] MEDS: ENOXAPARIN 40 MG/0.4 ML (LOVENOX) SYR SC SCH (18:22)
[2017-06-04] MEDS: oxyCODONE/APAP 10/325MG (PERCOCET 10) TABLET PO PRN ×4 (02:37→23:58)
[2017-06-04] MEDS: CATHETER FLUSH 10 ML SYR IV SCH ×3 (04:54→21:02)
[2017-06-04 05:49] LABS: ALANINE AMINOTRANSFERASE 26 U/L (0-55); ALBUMIN 3.5 GM/DL (3.2-4.5); ANION GAP 12 MMOL/L (5-14); ASPARTATE AMINO TRANSFERASE 22 U/L (5-34); BILIRUBIN,TOTAL 0.6 MG/DL (0.1-1.0); BLOOD UREA NITROGEN 16 MG/DL (7-18); BUN/CREATININE RATIO 19; CALCIUM 8.6 MG/DL (8.5-10.1); CARBON DIOXIDE 19 MMOL/L (21-32); CHLORIDE 103 MMOL/L (98-107); CREATININE SERUM 0.84 MG/DL (0.60-1.30); GFR ESTIMATED > 60; GLUCOSE 113 MG/DL (70-105); POTASSIUM 4.8 MMOL/L (3.6-5.0); SODIUM 134 MMOL/L (135-145); TOTAL PROTEIN 6.7 GM/DL (6.4-8.2)
[2017-06-04 06:15] VITALS: BP 139/68
[2017-06-04] MEDS: lisINopril 10 MG (PRINIVIL) TAB PO SCH (08:23)
[2017-06-04] MEDS: amLODIPine 5 MG (NORVASC) TAB PO SCH (08:23)
[2017-06-04] MEDS: oxyCODONE ER 10 MG (OxyCONTIN CR) TAB PO SCH ×2 (08:23→21:01)
[2017-06-04] MEDS: CARVEDILOL 3.125 MG (COREG) TABLET PO SCH ×2 (08:23→21:02)
[2017-06-04] MEDS: FAMOTIDINE 20 MG (PEPCID) TABLET PO SCH ×2 (08:23→21:01)
[2017-06-04] MEDS: LEVOFLOXACIN 500 MG TAB (LEVAQUIN) PO SCH (10:42)
--- NOTE | 2017-06-04 11:53 | Physical Therapy Daily Note ---
PT Daily Note-Current Subjective Pt. in bed and very agreeable to therapy. Nurse present to give pain meds, no objective pain rating given. Mental Status Patient Orientation: Person, Place, Time, Situation sling R UE, TLSO Transfers Functional [place] Measure 0=Not Assessed/NA 4=Minimal Assistance 1=Total Assistance 5=Supervision or Setup 2=Maximal Assistance 6=Modified [place] 3=Moderate Assistance 7=Complete IndependenceIRFPAI Quality Coding Scale 6 Independent with activity with or without an assistive device 5 Patient requires set up or clean up by helper. Patient completes activity by themselves 4 Supervision or touching assist (CGA). [place] provide cues , steadying assist 3 The helper provides less than half the effort to complete the activity 2 The helper provides more than half the effort to complete the activity 1 Dependent. The helper does all the effort to complete an activity 7 Patient refused to complete or attempt activity 9 The patient did not perform the activity before the current illness or injury 88 Not attempted due to Medical conditions or safety concerns Transfers (B, C, W/C) (FIM): 4 Supine to/from Sit: 4 Sit to/from Stand: 4 Gait Training Does the Patient Walk?: Yes Gait (FIM): 2 Distance: 2 x 70 ft Gait Level of Assist: 4 Gait Persons Needed: 1 Gait Assistive Device: Cane Small Base Quad Exercises NuStep Minutes: 10 NuStep Workload: 5 Treatments transfers, gait, nustep Assessment Current Status: Good Progress Able to increase ambulation distance and pt. tolerated very well. He continues to need min A with transfers, assist to don TLSO. Pt. up in w/c post session with call light and all needs met. PT Short Term Goals Short Term Goals Time Frame: Jun 07, 2017 Transfers (B,C,W/C) (FIM): 4 Gait (FIM): 2 Gait Distance Comment: 50' Gait Level of Assist: 4 Gait Assistive Device: Cane Large Base Quad Wheelchair Distance: 150'x2 PT Senior Care Goals Senior Care Goals PT Senior Care Goals Time Frame: Jun 21, 2017 Transfers (B,C,W/C) (FIM): 5 Sit to Lying (QC): 4 Lying-Sitting on Side/Bed(QC): 4 Sit to Stand (QC): 4 Rollin Roll Left to Right (QC): 4 Chair/Pqr-gh-Epgks Xfer(QC): 4 Car Transfer (QC): 4 Gait (FIM): 5 Distance: 150' Walk 10 feet (QC): 4 Walk 10ft-Uneven Surface(QC): 4 Walk 50ft with 2 Turns (QC): 4 Walk 150 ft (QC): 4 Gait Level of Assist: 5 Gait Assistive Device: FWW Stairs (FIM): 2 # of Steps: 4 1 Step (curb) (QC): 4 4 Steps (QC): 4 Stairs Level Of Assist: 4 PT Plan Treatment/Plan Treatment Plan: Continue Plan of Care Treatment Plan: Bed Mobility, Education, Functional Activity Christopher, Functional Strength, Group Therapy, Gait, Safety, Therapeutic Exercise, Transfers Treatment Duration: Jun 21, 2017 Frequency: At least 5-7 days/Wk (IRF) Estimated Hrs Per Day: 1.5 hours per day Patient and/or Family Agrees t: Yes Time/GCodes Time In: 1045 Time Out: 1108 Total Billed Treatment Time: 23 Total Billed Treatment 1, EX 10', FA 13' LAUREN FERNANDEZ PT Jun 04, 2017 11:53
[2017-06-04] MEDS: ENOXAPARIN 40 MG/0.4 ML (LOVENOX) SYR SC SCH (16:53)
[2017-06-04 17:32] VITALS: BP 124/72
[2017-06-05] MEDS: oxyCODONE/APAP 10/325MG (PERCOCET 10) TABLET PO PRN ×3 (05:33→18:18)
[2017-06-05] MEDS: CATHETER FLUSH 10 ML SYR IV SCH ×3 (05:34→20:49)
[2017-06-05 05:38] VITALS: BP 147/85
[2017-06-05] MEDS: amLODIPine 5 MG (NORVASC) TAB PO SCH (08:27)
[2017-06-05] MEDS: FAMOTIDINE 20 MG (PEPCID) TABLET PO SCH ×2 (08:27→20:32)
[2017-06-05] MEDS: oxyCODONE ER 10 MG (OxyCONTIN CR) TAB PO SCH ×2 (08:27→20:32)
[2017-06-05] MEDS: lisINopril 10 MG (PRINIVIL) TAB PO SCH (08:27)
[2017-06-05] MEDS: CARVEDILOL 3.125 MG (COREG) TABLET PO SCH ×2 (08:27→20:32)
[2017-06-05] MEDS: LEVOFLOXACIN 500 MG TAB (LEVAQUIN) PO SCH (11:33)
[2017-06-05] MEDS: IBUPROFEN 600 MG (MOTRIN) TAB PO PRN (14:55)
[2017-06-05] MEDS: ENOXAPARIN 40 MG/0.4 ML (LOVENOX) SYR SC SCH (17:19)
[2017-06-05 17:48] VITALS: BP 134/78
[2017-06-06] MEDS: oxyCODONE/APAP 10/325MG (PERCOCET 10) TABLET PO PRN ×4 (00:04→18:51)
[2017-06-06 05:42] VITALS: BP 135/81
[2017-06-06] MEDS: CATHETER FLUSH 10 ML SYR IV SCH (05:45)
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
[2017-06-06] MEDS: CARVEDILOL 3.125 MG (COREG) TABLET PO SCH ×2 (09:08→20:11)
[2017-06-06] MEDS: amLODIPine 5 MG (NORVASC) TAB PO SCH (09:08)
[2017-06-06] MEDS: FAMOTIDINE 20 MG (PEPCID) TABLET PO SCH ×2 (09:08→20:11)
[2017-06-06] MEDS: oxyCODONE ER 10 MG (OxyCONTIN CR) TAB PO SCH ×2 (09:08→20:11)
[2017-06-06] MEDS: lisINopril 10 MG (PRINIVIL) TAB PO SCH (09:27)
--- NOTE | 2017-06-06 11:07 | Physical Therapy Daily Note ---
PT Daily Note-Current Subjective Pt. states he is making progress everyday and feeling confident that he can DC to home safely when time comes. Pain Numeric Pain Scale: 3 Location: Medial Location Body Site: Back Pain Description: Ache Mental Status Patient Orientation: Normal For Age Attachments: Other-See Comments (back brace) Transfers Functional [place] Measure 0=Not Assessed/NA 4=Minimal Assistance 1=Total Assistance 5=Supervision or Setup 2=Maximal Assistance 6=Modified [place] 3=Moderate Assistance 7=Complete IndependenceIRFPAI Quality Coding Scale 6 Independent with activity with or without an assistive device 5 Patient requires set up or clean up by helper. Patient completes activity by themselves 4 Supervision or touching assist (CGA). [place] provide cues , steadying assist 3 The helper provides less than half the effort to complete the activity 2 The helper provides more than half the effort to complete the activity 1 Dependent. The helper does all the effort to complete an activity 7 Patient refused to complete or attempt activity 9 The patient did not perform the activity before the current illness or injury 88 Not attempted due to Medical conditions or safety concerns Transfers (B, C, W/C) (FIM): 5 Scootin Rollin Supine to/from Sit: 5 Sit to/from Stand: 5 Bed to/from Chair: 5 Gait Training Does the Patient Walk?: Yes Gait (FIM): 4 Distance (FIM): 3=150 ft (x2) Gait Level of Assist: 4 Gait Persons Needed: 1 Gait Assistive Device: Cane Large Base Quad Wheelchair Training Does the Pt Use a Wheelchair?: Yes Wheelchair (FIM): 6 Wheelchair Distance: 3=150 ft Wheelchair Level of Assist: 6 Type of Wheelchair: Manual Stair Training Stair Training: Handrails/: 1 handrail Stairs (FIM): 2 #of Steps: 4 Stairs: Pattern: Step to Level of Assist: 4 Exercises Supine Ex: Rolling, Heel Slides, Hip abd/add Supine Reps: 10 Seated Therapy Exercises: Ankle pumps, Sit to stand, Long arc quads, Hip flexion Seated Reps: 10 NuStep Minutes: 12 NuStep Workload: 2 Assessment Current Status: Good Progress PT Short Term Goals Short Term Goals Time Frame: Jun 07, 2017 Transfers (B,C,W/C) (FIM): 4 Gait (FIM): 2 Gait Distance Comment: 50' Gait Level of Assist: 4 Gait Assistive Device: Cane Large Base Quad Wheelchair Distance: 150'x2 PT Manager Of Production Goals Manager Of Production Goals PT Senior Care Goals Time Frame: Jun 21, 2017 Transfers (B,C,W/C) (FIM): 5 Sit to Lying (QC): 4 Lying-Sitting on Side/Bed(QC): 4 Sit to Stand (QC): 4 Rollin Roll Left to Right (QC): 4 Chair/Fvx-yv-Yldpt Xfer(QC): 4 Car Transfer (QC): 4 Gait (FIM): 5 Distance: 150' Walk 10 feet (QC): 4 Walk 10ft-Uneven Surface(QC): 4 Walk 50ft with 2 Turns (QC): 4 Walk 150 ft (QC): 4 Gait Level of Assist: 5 Gait Assistive Device: FWW Stairs (FIM): 2 # of Steps: 4 1 Step (curb) (QC): 4 4 Steps (QC): 4 Stairs Level Of Assist: 4 PT Plan Treatment/Plan Treatment Plan: Continue Plan of Care Treatment Plan: Bed Mobility, Education, Functional Activity Christopher, Functional Strength, Group Therapy, Gait, Safety, Therapeutic Exercise, Transfers Treatment Duration: Jun 21, 2017 Frequency: At least 5-7 days/Wk (IRF) Estimated Hrs Per Day: 1.5 hours per day Patient and/or Family Agrees t: Yes Safety Risks/Education Patient Education: Gait Training, Transfer Techniques, Steps Teaching Recipient: Patient Teaching Methods: Demonstration, Discussion Response to Teaching: Verbalize Understanding, Return Demonstration, Reinforcement Needed Time/GCodes Time In: 1015 Time Out: 1100 Total Billed Treatment Time: 45 Total Billed Treatment 1,FA15m,GT15m,EX15m G Codes Necessary: NADIR Dc PHLEBOTOMY SUPERVISOR Jun 06, 2017 11:06
--- NOTE | 2017-06-06 12:38 | Occupational Ther Daily Note ---
OT Current Status-Daily Note Subjective Pt alert, sitting in w/c. Pt states that he doesn't feel very well today so not sure if he wants to shower. Pt agrees to therapy. Mental Status/Objective Patient Orientation: Person, Place, Time, Situation Functional [place] Measure 0=Not Assessed/NA 4=Minimal Assistance 1=Total Assistance 5=Supervision or Setup 2=Maximal Assistance 6=Modified [place] 3=Moderate Assistance 7=Complete [place] Attachments: Other-See Comments (PICC) ADL-Treatment Pt declines shower today. Pt does want to complete grooming today. At w/c level pt completed shaving in standing at sink with supervision. All other grooming completed sitting in w/c at sink level. Min A to don/doff shirt due to R UE injury. Mod A to don/doff TSLO brace. After therapy, pt sitting in recliner with call light/phone in reach. All needs met in room. Functional [place] Measure 0=Not Assessed/NA 4=Minimal Assistance 1=Total Assistance 5=Supervision or Setup 2=Maximal Assistance 6=Modified [place] 3=Moderate Assistance 7=Complete IndependenceIRFPAI Quality Coding Scale 6 Independent with activity with or without an assistive device 5 Patient requires set up or clean up by helper. Patient completes activity by themselves 4 Supervision or touching assist (CGA). [place] provide cues , steadying assist 3 The helper provides less than half the effort to complete the activity 2 The helper provides more than half the effort to complete the activity 1 Dependent. The helper does all the effort to complete an activity 7 Patient refused to complete or attempt activity 9 The patient did not perform the activity before the current illness or injury 88 Not attempted due to Medical conditions or safety concerns Grooming (FIM): 6 Upper Body (FIM): 3 OT Short Term Goals Short Term Goals Time Frame: Jun 10, 2017 Grooming(FIM): 6 Bathing(FIM): 5 Upper Body Dressing(FIM): 3 Lower Body Dressing(FIM): 3 Transfers (B,C,W/C) (FIM): 4 Additional Short Term Goals: 1-Demonstrate ADL Tasks, 2-Verbalize Understanding , 3-ImproveStrength/Christopher 1=Demonstrate adherence to instructed precautions during ADL tasks. 2=Patient will verbalize/demonstrate understanding of assistive devices/ modifications for ADL. 3=Patient will improve strength/tolerance for activity to enable patient to perform ADL's. OT Business Operations Coordinator Goals Business Operations Coordinator Goals Time Frame: Jun 24, 2017 Eating (FIM): 6 Eating (QC): 6 Groomin Oral Hygiene (QC): 6 Bathing(FIM): 5 Shower/Bathe Self (QC): 5 Upper Body Dressing(FIM): 4 Upper Body Dressing (QC): 3 Lower Body Dressing(FIM): 5 Lower Body Dressing (QC): 5 On/Off Footwear (QC): 5 Toileting(FIM): 6 Toileting Hygiene (QC): 6 Toilet/Commode Transfer(FIM): 6 Toilet/Commode Transfer (QC): 6 Shower Transfer(FIM): 5 Additional Goals: 1-Demonstrate ADL Tasks, 2-Verbalize Understanding, 3- ImproveStrength/Christopher 1=Demonstrate adherence to instructed precautions during ADL tasks. 2=Patient will verbalize/demonstrate understanding of assistive devices/ modifications for ADL. 3=Patient will improve strength/tolerance for activity to enable patient to perform ADL's. OT Education/Plan Problem List/Assessment Pt would benefit from skilled OT to increase his independence in basic elf care to allo whim to safely return to his home and to decrease caregiver burden. Discharge Recommendations Plan/Recommendations: Continue POC Treatment Plan/Plan of Care Patient would benefit from OT for education, treatment and training to promote independence in ADL's, mobility, safety and/or upper extremity function for ADL' s. Plan of Care: ADL Retraining, Functional Mobility, Group Exercise/Act as Ind ( education, exercise, activity tolerance, functional mobility, funct activities) , UE Funct Exercise/Act, UE Neuromus Re-Ed/Coord Treatment Duration: Jun 24, 2017 Frequency: Twice Daily (5-6 days a week) Estimated Hrs Per Day: 1.5 hours per day Agreement: Yes Rehab Potential: Good Time/GCodes Start Time: 08:00 Stop Time: 09:00 Total Time Billed (hr/min): 60 Billed Treatment Time 1 visit-FA 4 (60 min) VIELKA PERES Jun 06, 2017 12:38
--- NOTE | 2017-06-06 15:24 | Therapy Group Daily Note ---
Therapy Daily Group Note Patient Education Topic Home Safety, Fall Prevention Other/Notes Pt maneuvered w/c to OT/PT group. Group consisted of introductions (name, place living, childhood memory), socialization, transfer safety education (bed, chair , floor) and group discussion. Pt contributed to group discussions appropriately. Pt verbalized understanding of education topic and gave solutions for home safety problems that had been used previously. Pt maneuvered w/c back to room. Call light/phone in reach. All needs met in room. Start Time: 13:00 Stop Time: 14:15 Total Billed Treatment Time: 75 Total Billed Treatment 1-GRP VIELKA PERES Jun 06, 2017 15:24
[2017-06-06] MEDS: ENOXAPARIN 40 MG/0.4 ML (LOVENOX) SYR SC SCH (17:30)
[2017-06-06 18:47] VITALS: BP 132/78
--- NOTE | 2017-06-06 20:52 | PM & R (SOAP) Progress Note ---
Subjective Time Seen by Provider: 19:05 Subjective/Events-last exam Patient was seen in his room this evening Patient SBA for transfers Pain control adequate Objective Exam Last Set of Vital Signs Vital Signs Date Time Temp Pulse Resp B/P (MAP) Pulse Ox O2 Delivery O2 Flow Rate FiO2 06/06/17 18:47 97.1 102 16 132/78 96 06/06/17 09:00 Room Air Capillary Refill : Less Than 3 Seconds I&O Intake and Output 06/06/17 00:00 Intake Total 1320 ml Output Total 400 ml Balance 920 ml Intake Oral 1320 ml Output Urine Total 400 ml # Voids 6 # Bowel Movements 1 General: Alert, Oriented X3, Cooperative, No Acute Distress HEENT: Atraumatic, PERRLA, EOMI, Mucous Memb Moist/[place] Neck: Supple, No JVD Lungs: Clear to Auscultation Heart: Regular Rate Abdomen: Normal Bowel Sounds, Soft, No Tenderness, Other (Midline surgical scar healing well) Extremities: Other (edema rt hand) Neuro: Other (strength diminished both LES due to pain guarding at least in part) Results Lab Laboratory Tests 06/04/17 05:00: Sodium Level 134L, Potassium Level 4.8, Chloride Level 103, Carbon Dioxide Level 19L, Anion Gap 12, Blood Urea Nitrogen 16, Creatinine 0.84, Estimat Glomerular Filtration Rate > 60, BUN/Creatinine Ratio 19, Glucose Level 113H, Calcium Level 8.6, Total Bilirubin 0.6, Aspartate Amino Transf (AST/SGOT) 22, Alanine Aminotransferase (ALT/SGPT) 26, Alkaline Phosphatase 457H, Total Protein 6.7, Albumin 3.5 Assessment/Plan Assessment S/P Tspine unstable frx and rt Humerus frx s/p Arthrodesis t spine Neurosurgery OSH and ORIF rt humeral frx OSH Ortho S/P colon resection for CA DR Pittman S/P central port placement RT Anterior chest-now functioning HTN meds adjusted due to downward trend in Blood pressure Plan Continue PT/OT Pain Management. F/U with DR Zain borja Central port-done Recheck Labs-done Blood pressure meds adjusted See orders. Next Team Conference 06/07/17 J CARLOS ARANDA MD Jun 06, 2017 20:52
[2017-06-07] MEDS: oxyCODONE/APAP 10/325MG (PERCOCET 10) TABLET PO PRN ×3 (00:57→17:30)
[2017-06-07 06:07] VITALS: BP 131/80
[2017-06-07 06:49] LABS: BASOPHILS # (AUTO) 0.1 10^3/uL (0.0-0.1); BASOPHILS % (AUTO) 1 % (0-10); EOSINOPHILS # (AUTO) 0.3 10^3/uL (0.0-0.3); EOSINOPHILS % (AUTO) 5 % (0-10); LYMPHOCYTES # (AUTO) 2.4 X 10^3 (1.0-4.0); LYMPHOCYTES % (AUTO) 39 % (12-44); MEAN CORPUSCULAR HEMOGLOBIN 27 PG (25-34); MEAN CORPUSCULAR HGB CONC 30 G/DL (32-36); MEAN CORPUSCULAR VOLUME 90 FL (80-99); MONOCYTES # (AUTO) 0.7 X 10^3 (0.0-1.0); MONOCYTES % (AUTO) 11 % (0-12); NEUTROPHILS # (AUTO) 2.7 X 10^3 (1.8-7.8); NEUTROPHILS % (AUTO) 44 % (42-75); PLATELET COUNT 403 10^3/uL (130-400); RED BLOOD COUNT 3.16 10^6/uL (4.35-5.85); RED CELL DISTRIBUTION WIDTH 18.9 % (10.0-14.5); WHITE BLOOD COUNT 6.2 10^3/uL (4.3-11.0)
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
[2017-06-07] MEDS: amLODIPine 5 MG (NORVASC) TAB PO SCH (08:48)
[2017-06-07] MEDS: CARVEDILOL 3.125 MG (COREG) TABLET PO SCH ×2 (08:48→20:54)
[2017-06-07] MEDS: FAMOTIDINE 20 MG (PEPCID) TABLET PO SCH ×2 (08:48→20:54)
[2017-06-07] MEDS: oxyCODONE ER 10 MG (OxyCONTIN CR) TAB PO SCH ×2 (08:48→20:54)
[2017-06-07] MEDS: lisINopril 10 MG (PRINIVIL) TAB PO SCH (08:48)
--- NOTE | 2017-06-07 08:56 | Occupational Ther Daily Note ---
OT Current Status-Daily Note Subjective Pt alert, sitting in w/c. Pt agreed to therapy. No c/o pain, fatigue only. Mental Status/Objective Patient Orientation: Person, Place, Time, Situation Functional [place] Measure 0=Not Assessed/NA 4=Minimal Assistance 1=Total Assistance 5=Supervision or Setup 2=Maximal Assistance 6=Modified [place] 3=Moderate Assistance 7=Complete [place] ADL-Treatment Functional [place] Measure 0=Not Assessed/NA 4=Minimal Assistance 1=Total Assistance 5=Supervision or Setup 2=Maximal Assistance 6=Modified [place] 3=Moderate Assistance 7=Complete IndependenceIRFPAI Quality Coding Scale 6 Independent with activity with or without an assistive device 5 Patient requires set up or clean up by helper. Patient completes activity by themselves 4 Supervision or touching assist (CGA). [place] provide cues , steadying assist 3 The helper provides less than half the effort to complete the activity 2 The helper provides more than half the effort to complete the activity 1 Dependent. The helper does all the effort to complete an activity 7 Patient refused to complete or attempt activity 9 The patient did not perform the activity before the current illness or injury 88 Not attempted due to Medical conditions or safety concerns Grooming (FIM): 6 (At w/c level, sitting at sink pt is able to complete all grooming.) Bathing (FIM): 4 (Using shower bench, grabbars, hand held shower and long handle sponge pt is able to complete own bathing. Assist to dry L side and B feet.) Bathing Location: L Arm, R Arm, L Upper Leg, R Upper Leg, L Lower Leg ( including foot), R Lower Leg (including foot), Chest, Abdomen, Buttocks, Perineal Area Upper Body (FIM): 4 (Min A to don/doff shirt over R shldr.) Lower Body Dressing (FIM): 3 (Pt able to doff clothing with AE. Dons pants over feet then needs assist to hike over R hip. AE to don socks and L shoe. Assist to don R shoe.) Toileting (FIM): 3 (Pt able to complete clothing manipulation. Continues to have difficulty with cleansing buttocks.) Transfers (B, C, W/C) (FIM): 5 (SBA with transfers using cane.) Toilet/Commode Transfer (FIM): 5 (SBA using cane and grabbar.) Shower Transfer(FIM): 6 (Using cane, shower bench and grabbar pt is able to complete shower transfer.) Pt fatigues easily completing ADLs. After therapy, pt sitting in w/c with call light/phone in reach. All needs met in room. OT Short Term Goals Short Term Goals Time Frame: Jun 10, 2017 Grooming(FIM): 6 Bathing(FIM): 5 Upper Body Dressing(FIM): 3 Lower Body Dressing(FIM): 3 Transfers (B,C,W/C) (FIM): 4 Additional Short Term Goals: 1-Demonstrate ADL Tasks, 2-Verbalize Understanding , 3-ImproveStrength/Christopher 1=Demonstrate adherence to instructed precautions during ADL tasks. 2=Patient will verbalize/demonstrate understanding of assistive devices/ modifications for ADL. 3=Patient will improve strength/tolerance for activity to enable patient to perform ADL's. OT Group Home Goals Group Home Goals Time Frame: Jun 24, 2017 Eating (FIM): 6 Eating (QC): 6 Groomin Oral Hygiene (QC): 6 Bathing(FIM): 5 Shower/Bathe Self (QC): 5 Upper Body Dressing(FIM): 4 Upper Body Dressing (QC): 3 Lower Body Dressing(FIM): 5 Lower Body Dressing (QC): 5 On/Off Footwear (QC): 5 Toileting(FIM): 6 Toileting Hygiene (QC): 6 Toilet/Commode Transfer(FIM): 6 Toilet/Commode Transfer (QC): 6 Shower Transfer(FIM): 5 Additional Goals: 1-Demonstrate ADL Tasks, 2-Verbalize Understanding, 3- ImproveStrength/Christopher 1=Demonstrate adherence to instructed precautions during ADL tasks. 2=Patient will verbalize/demonstrate understanding of assistive devices/ modifications for ADL. 3=Patient will improve strength/tolerance for activity to enable patient to perform ADL's. OT Education/Plan Problem List/Assessment Pt would benefit from skilled OT to increase his independence in basic elf care to allo whim to safely return to his home and to decrease caregiver burden. Discharge Recommendations Plan/Recommendations: Continue POC Treatment Plan/Plan of Care Patient would benefit from OT for education, treatment and training to promote independence in ADL's, mobility, safety and/or upper extremity function for ADL' s. Plan of Care: ADL Retraining, Functional Mobility, Group Exercise/Act as Ind ( education, exercise, activity tolerance, functional mobility, funct activities) , UE Funct Exercise/Act, UE Neuromus Re-Ed/Coord Treatment Duration: Jun 24, 2017 Frequency: Twice Daily (5-6 days a week) Estimated Hrs Per Day: 1.5 hours per day Agreement: Yes Rehab Potential: Good Time/GCodes Start Time: 08:00 Stop Time: 09:00 Total Time Billed (hr/min): 60 Billed Treatment Time 1 visit-ADL 4 (60 min) VIELKA PERES Jun 07, 2017 08:56
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
--- NOTE | 2017-06-07 11:03 | Physical Therapy Daily Note ---
PT Daily Note-Current Subjective Pt agrees to Rx and states he is feeling much stronger, but wants to stay another week b/c he still ant wipe his own bottom and wants to get that skill down first as there is no one to do this for him at home Pain Numeric Pain Scale: 0-No Pain Mental Status Patient Orientation: Normal For Age Attachments: Other-See Comments (sling right arm) Transfers Functional [place] Measure 0=Not Assessed/NA 4=Minimal Assistance 1=Total Assistance 5=Supervision or Setup 2=Maximal Assistance 6=Modified [place] 3=Moderate Assistance 7=Complete IndependenceIRFPAI Quality Coding Scale 6 Independent with activity with or without an assistive device 5 Patient requires set up or clean up by helper. Patient completes activity by themselves 4 Supervision or touching assist (CGA). [place] provide cues , steadying assist 3 The helper provides less than half the effort to complete the activity 2 The helper provides more than half the effort to complete the activity 1 Dependent. The helper does all the effort to complete an activity 7 Patient refused to complete or attempt activity 9 The patient did not perform the activity before the current illness or injury 88 Not attempted due to Medical conditions or safety concerns Transfers (B, C, W/C) (FIM): 6 Scootin Rollin Supine to/from Sit: 6 Sit to/from Stand: 6 Gait Training Does the Patient Walk?: Yes Gait (FIM): 4 Distance (FIM): 3=150 ft (200x2) Gait Level of Assist: 4 Gait Persons Needed: 1 Gait Assistive Device: Cane Large Base Quad no LOB, slow, Stair Training Stair Training: Handrails/: 1 handrail Stairs (FIM): 2 #of Steps: 4 Stairs: Pattern: Step to Level of Assist: 4 pt. is more challenged by descending stairs than ascending. needs min assist for steadying Exercises Supine Ex: Bridging, Ankle pumps, Quad Set, Rolling, Glut sets, Heel Slides, Short Arc Quads, Scooting, Hip abd/add Supine Reps: 15 NuStep Minutes: 10 NuStep Workload: 2 Assessment Current Status: Good Progress marked progress increased functional mobility and no c/o pain PT Short Term Goals Short Term Goals Time Frame: Jun 07, 2017 Transfers (B,C,W/C) (FIM): 4 Gait (FIM): 2 Gait Distance Comment: 50' Gait Level of Assist: 4 Gait Assistive Device: Cane Large Base Quad Wheelchair Distance: 150'x2 PT Detention Goals Business Process Associate Goals PT Detention Goals Time Frame: Jun 21, 2017 Transfers (B,C,W/C) (FIM): 5 Sit to Lying (QC): 4 Lying-Sitting on Side/Bed(QC): 4 Sit to Stand (QC): 4 Rollin Roll Left to Right (QC): 4 Chair/[id number] Xfer(QC): 4 Car Transfer (QC): 4 Gait (FIM): 5 Distance: 150' Walk 10 feet (QC): 4 Walk 10ft-Uneven Surface(QC): 4 Walk 50ft with 2 Turns (QC): 4 Walk 150 ft (QC): 4 Gait Level of Assist: 5 Gait Assistive Device: FWW Stairs (FIM): 2 # of Steps: 4 1 Step (curb) (QC): 4 4 Steps (QC): 4 Stairs Level Of Assist: 4 PT Plan Treatment/Plan Treatment Plan: Continue Plan of Care Treatment Plan: Bed Mobility, Education, Functional Activity Christopher, Functional Strength, Group Therapy, Gait, Safety, Therapeutic Exercise, Transfers Treatment Duration: Jun 21, 2017 Frequency: At least 5-7 days/Wk (IRF) Estimated Hrs Per Day: 1.5 hours per day Patient and/or Family Agrees t: Yes Safety Risks/Education Patient Education: Gait Training, Transfer Techniques, Steps Teaching Recipient: Patient Teaching Methods: Demonstration, Discussion Response to Teaching: Verbalize Understanding, Return Demonstration, Reinforcement Needed Time/GCodes Time In: 1000 Time Out: 1100 Total Billed Treatment Time: 60 Total Billed Treatment 1,GT25m,FA20m,FA15m G Codes Necessary: NADIR Dc MARKETING OPERATIONS INTERN Jun 07, 2017 11:02
--- NOTE | 2017-06-07 14:39 | Occupational Ther Daily Note ---
OT Current Status-Daily Note Subjective Pt alert, sitting in w/c. Pt agreed to therapy. No c/o pain. Mental Status/Objective Patient Orientation: Person, Place, Time, Situation Functional [place] Measure 0=Not Assessed/NA 4=Minimal Assistance 1=Total Assistance 5=Supervision or Setup 2=Maximal Assistance 6=Modified [place] 3=Moderate Assistance 7=Complete [place] ADL-Treatment Functional [place] Measure 0=Not Assessed/NA 4=Minimal Assistance 1=Total Assistance 5=Supervision or Setup 2=Maximal Assistance 6=Modified [place] 3=Moderate Assistance 7=Complete IndependenceIRFPAI Quality Coding Scale 6 Independent with activity with or without an assistive device 5 Patient requires set up or clean up by helper. Patient completes activity by themselves 4 Supervision or touching assist (CGA). [place] provide cues , steadying assist 3 The helper provides less than half the effort to complete the activity 2 The helper provides more than half the effort to complete the activity 1 Dependent. The helper does all the effort to complete an activity 7 Patient refused to complete or attempt activity 9 The patient did not perform the activity before the current illness or injury 88 Not attempted due to Medical conditions or safety concerns Toileting (FIM): 5 Other Treatment Pt working on different situations and techniques to be able to cleanse buttocks. After multiple attempts to cleanse self, pt was able to cleanse self. Using toilet tongs, pt is able to stand and cleanse buttocks then disposing of toilet paper or cleansing clothes in trash can that is placed in front of pt for easy access. Pt was able to complete toileting with SBA. After therapy, pt sitting in w/c with call light/phone in reach. All needs met in room. OT Short Term Goals Short Term Goals Time Frame: Jun 10, 2017 Grooming(FIM): 6 Bathing(FIM): 5 Upper Body Dressing(FIM): 3 Lower Body Dressing(FIM): 3 Transfers (B,C,W/C) (FIM): 4 Additional Short Term Goals: 1-Demonstrate ADL Tasks, 2-Verbalize Understanding , 3-ImproveStrength/Christopher 1=Demonstrate adherence to instructed precautions during ADL tasks. 2=Patient will verbalize/demonstrate understanding of assistive devices/ modifications for ADL. 3=Patient will improve strength/tolerance for activity to enable patient to perform ADL's. OT Plodding Machine Operator Goals Mcc Goals Time Frame: Jun 24, 2017 Eating (FIM): 6 Eating (QC): 6 Groomin Oral Hygiene (QC): 6 Bathing(FIM): 5 Shower/Bathe Self (QC): 5 Upper Body Dressing(FIM): 4 Upper Body Dressing (QC): 3 Lower Body Dressing(FIM): 5 Lower Body Dressing (QC): 5 On/Off Footwear (QC): 5 Toileting(FIM): 6 Toileting Hygiene (QC): 6 Toilet/Commode Transfer(FIM): 6 Toilet/Commode Transfer (QC): 6 Shower Transfer(FIM): 5 Additional Goals: 1-Demonstrate ADL Tasks, 2-Verbalize Understanding, 3- ImproveStrength/Christopher 1=Demonstrate adherence to instructed precautions during ADL tasks. 2=Patient will verbalize/demonstrate understanding of assistive devices/ modifications for ADL. 3=Patient will improve strength/tolerance for activity to enable patient to perform ADL's. OT Education/Plan Problem List/Assessment Pt would benefit from skilled OT to increase his independence in basic elf care to allo whim to safely return to his home and to decrease caregiver burden. Discharge Recommendations Plan/Recommendations: Continue POC Treatment Plan/Plan of Care Patient would benefit from OT for education, treatment and training to promote independence in ADL's, mobility, safety and/or upper extremity function for ADL' s. Plan of Care: ADL Retraining, Functional Mobility, Group Exercise/Act as Ind ( education, exercise, activity tolerance, functional mobility, funct activities) , UE Funct Exercise/Act, UE Neuromus Re-Ed/Coord Treatment Duration: Jun 24, 2017 Frequency: Twice Daily (5-6 days a week) Estimated Hrs Per Day: 1.5 hours per day Agreement: Yes Rehab Potential: Good Time/GCodes Start Time: 11:30 Stop Time: 12:00 Total Time Billed (hr/min): 30 Billed Treatment Time 1 visit-FA 2 (30 min) VIELKA PERES Jun 07, 2017 14:39
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
[2017-06-07] MEDS: IBUPROFEN 600 MG (MOTRIN) TAB PO PRN (14:40)
[2017-06-07 18:30] VITALS: BP 123/79
[2017-06-08] MEDS: oxyCODONE/APAP 10/325MG (PERCOCET 10) TABLET PO PRN ×4 (00:03→23:46)
[2017-06-08 06:40] VITALS: BP 144/84
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
--- NOTE | 2017-06-08 08:51 | Occupational Ther Daily Note ---
OT Current Status-Daily Note Subjective Pt alert, sitting in w/c. Pt agreed to therapy. Pt c/o pain all over, did not rate. Pt stated he knew it wasn't time for his pain meds. Reported to nrsg and physician. Mental Status/Objective Patient Orientation: Person, Place, Time, Situation Functional [place] Measure 0=Not Assessed/NA 4=Minimal Assistance 1=Total Assistance 5=Supervision or Setup 2=Maximal Assistance 6=Modified [place] 3=Moderate Assistance 7=Complete [place] ADL-Treatment Pt declined to complete shower today. Pt requested to complete grooming. Pt maneuvered w/c into bathroom in front of sink then stood to complete shaving, mod I. Pt required assist to doff/don TLSO and shirt due to increased pain today. Pt transferred on/off toilet by self using cane and grabbar. Pt was able to manipulate clothing and cleanse self with AE, mod I. Pt required assistance to don socks/shoes. Then pt ambulated to large shower room with close SBA using cane. Pt transferred into tub/shower with tub transfer bench with close SBA. Pt then ambulated back to room and transferred into w/c. After therapy, pt sitting in w/c in [facility] area. All needs met in room. Functional [place] Measure 0=Not Assessed/NA 4=Minimal Assistance 1=Total Assistance 5=Supervision or Setup 2=Maximal Assistance 6=Modified [place] 3=Moderate Assistance 7=Complete IndependenceIRFPAI Quality Coding Scale 6 Independent with activity with or without an assistive device 5 Patient requires set up or clean up by helper. Patient completes activity by themselves 4 Supervision or touching assist (CGA). [place] provide cues , steadying assist 3 The helper provides less than half the effort to complete the activity 2 The helper provides more than half the effort to complete the activity 1 Dependent. The helper does all the effort to complete an activity 7 Patient refused to complete or attempt activity 9 The patient did not perform the activity before the current illness or injury 88 Not attempted due to Medical conditions or safety concerns Grooming (FIM): 6 Upper Body (FIM): 3 On/Off Footwear (QC): 2 Toileting (FIM): 6 Transfers (B, C, W/C) (FIM): 6 Toilet/Commode Transfer (FIM): 6 OT Short Term Goals Short Term Goals Time Frame: Jun 10, 2017 Grooming(FIM): 6 Bathing(FIM): 5 Upper Body Dressing(FIM): 3 Lower Body Dressing(FIM): 3 Transfers (B,C,W/C) (FIM): 4 Additional Short Term Goals: 1-Demonstrate ADL Tasks, 2-Verbalize Understanding , 3-ImproveStrength/Christopher 1=Demonstrate adherence to instructed precautions during ADL tasks. 2=Patient will verbalize/demonstrate understanding of assistive devices/ modifications for ADL. 3=Patient will improve strength/tolerance for activity to enable patient to perform ADL's. OT Alf Goals Element Burner Goals Time Frame: Jun 24, 2017 Eating (FIM): 6 Eating (QC): 6 Groomin Oral Hygiene (QC): 6 Bathing(FIM): 5 Shower/Bathe Self (QC): 5 Upper Body Dressing(FIM): 4 Upper Body Dressing (QC): 3 Lower Body Dressing(FIM): 5 Lower Body Dressing (QC): 5 On/Off Footwear (QC): 5 Toileting(FIM): 6 Toileting Hygiene (QC): 6 Toilet/Commode Transfer(FIM): 6 Toilet/Commode Transfer (QC): 6 Shower Transfer(FIM): 5 Additional Goals: 1-Demonstrate ADL Tasks, 2-Verbalize Understanding, 3- ImproveStrength/Christopher 1=Demonstrate adherence to instructed precautions during ADL tasks. 2=Patient will verbalize/demonstrate understanding of assistive devices/ modifications for ADL. 3=Patient will improve strength/tolerance for activity to enable patient to perform ADL's. OT Education/Plan Problem List/Assessment Pt would benefit from skilled OT to increase his independence in basic elf care to allo whim to safely return to his home and to decrease caregiver burden. Discharge Recommendations Plan/Recommendations: Continue POC Treatment Plan/Plan of Care Patient would benefit from OT for education, treatment and training to promote independence in ADL's, mobility, safety and/or upper extremity function for ADL' s. Plan of Care: ADL Retraining, Functional Mobility, Group Exercise/Act as Ind ( education, exercise, activity tolerance, functional mobility, funct activities) , UE Funct Exercise/Act, UE Neuromus Re-Ed/Coord Treatment Duration: Jun 24, 2017 Frequency: Twice Daily (5-6 days a week) Estimated Hrs Per Day: 1.5 hours per day Agreement: Yes Rehab Potential: Good Time/GCodes Start Time: 08:00 Stop Time: 09:00 Total Time Billed (hr/min): 60 Billed Treatment Time 1 visit-FA 4 (60 min) VIELKA PERES Jun 08, 2017 08:51
[2017-06-08] MEDS: FAMOTIDINE 20 MG (PEPCID) TABLET PO SCH ×2 (09:06→21:19)
[2017-06-08] MEDS: amLODIPine 5 MG (NORVASC) TAB PO SCH (09:06)
[2017-06-08] MEDS: lisINopril 10 MG (PRINIVIL) TAB PO SCH (09:06)
[2017-06-08] MEDS: CARVEDILOL 3.125 MG (COREG) TABLET PO SCH ×2 (09:06→21:18)
[2017-06-08] MEDS: oxyCODONE ER 10 MG (OxyCONTIN CR) TAB PO SCH ×2 (09:06→21:19)
--- NOTE | 2017-06-08 10:50 | Physical Therapy Daily Note ---
PT Daily Note-Current Subjective Pt. agrees to Rx. States he feels he needs to concentrate on stairs this morning. Pt also shares he feels he needs to possibly stay one more week Pain Numeric Pain Scale: 3 Location: Right Location Body Site: Chest (ribs) Pain Description: Ache Mental Status Patient Orientation: Normal For Age Attachments: Other-See Comments (tanesha KAT) Transfers Functional [place] Measure 0=Not Assessed/NA 4=Minimal Assistance 1=Total Assistance 5=Supervision or Setup 2=Maximal Assistance 6=Modified [place] 3=Moderate Assistance 7=Complete IndependenceIRFPAI Quality Coding Scale 6 Independent with activity with or without an assistive device 5 Patient requires set up or clean up by helper. Patient completes activity by themselves 4 Supervision or touching assist (CGA). [place] provide cues , steadying assist 3 The helper provides less than half the effort to complete the activity 2 The helper provides more than half the effort to complete the activity 1 Dependent. The helper does all the effort to complete an activity 7 Patient refused to complete or attempt activity 9 The patient did not perform the activity before the current illness or injury 88 Not attempted due to Medical conditions or safety concerns Transfers (B, C, W/C) (FIM): 5 Scootin Rollin Sit to/from Stand: 6 Gait Training Does the Patient Walk?: Yes Gait (FIM): 5 Distance (FIM): 3=150 ft Gait Level of Assist: 5 Gait Persons Needed: 1 Gait Assistive Device: Cane Large Base Quad Stair Training Stair Training: Handrails/: 1 handrail Stairs (FIM): 5 #of Steps: 12 Stairs: Pattern: Step to Level of Assist: 5 Exercises Supine Ex: Ankle pumps, Quad Set, Rolling, Glut sets, Heel Slides, Short Arc Quads, Scooting, Straight leg raise (x5 ea only), Hip abd/add Standing: Hip Abduction, Hamstring curls, Heel/toe raises, Marching, Mini squats, Sit to Stand Standing Reps: 12 Treatments toileted during Rx, mod I Assessment Current Status: Good Progress PT Short Term Goals Short Term Goals Time Frame: Jun 07, 2017 Transfers (B,C,W/C) (FIM): 4 Gait (FIM): 2 Gait Distance Comment: 50' Gait Level of Assist: 4 Gait Assistive Device: Cane Large Base Quad Wheelchair Distance: 150'x2 PT Hammer Shop Supervisor Goals Hammer Shop Supervisor Goals PT Hammer Shop Supervisor Goals Time Frame: Jun 21, 2017 Transfers (B,C,W/C) (FIM): 5 Sit to Lying (QC): 4 Lying-Sitting on Side/Bed(QC): 4 Sit to Stand (QC): 4 Rollin Roll Left to Right (QC): 4 Chair/Pro-eq-Acegs Xfer(QC): 4 Car Transfer (QC): 4 Gait (FIM): 5 Distance: 150' Walk 10 feet (QC): 4 Walk 10ft-Uneven Surface(QC): 4 Walk 50ft with 2 Turns (QC): 4 Walk 150 ft (QC): 4 Gait Level of Assist: 5 Gait Assistive Device: FWW Stairs (FIM): 2 # of Steps: 4 1 Step (curb) (QC): 4 4 Steps (QC): 4 Stairs Level Of Assist: 4 PT Plan Treatment/Plan Treatment Plan: Continue Plan of Care Treatment Plan: Bed Mobility, Education, Functional Activity Christopher, Functional Strength, Group Therapy, Gait, Safety, Therapeutic Exercise, Transfers Treatment Duration: Jun 21, 2017 Frequency: At least 5-7 days/Wk (IRF) Estimated Hrs Per Day: 1.5 hours per day Patient and/or Family Agrees t: Yes Safety Risks/Education Patient Education: Gait Training, Transfer Techniques, Steps, Issued Written HEP Teaching Recipient: Patient Teaching Methods: Demonstration, Discussion Response to Teaching: Verbalize Understanding, Return Demonstration Time/GCodes Time In: 1000 Time Out: 1100 Total Billed Treatment Time: 60 Total Billed Treatment 1,FA15m,GT20m,EX25m G Codes Necessary: NADIR Dc CUSTOMER CARE SPECIALIST Jun 08, 2017 10:50
--- NOTE | 2017-06-08 11:46 | Occupational Ther Daily Note ---
OT Current Status-Daily Note Subjective Pt alert, sitting in w/c. Pt agreed to therapy. Pt states that he is feeling better than earlier this morning. Mental Status/Objective Patient Orientation: Person, Place, Time, Situation Functional [place] Measure 0=Not Assessed/NA 4=Minimal Assistance 1=Total Assistance 5=Supervision or Setup 2=Maximal Assistance 6=Modified [place] 3=Moderate Assistance 7=Complete [place] ADL-Treatment Functional [place] Measure 0=Not Assessed/NA 4=Minimal Assistance 1=Total Assistance 5=Supervision or Setup 2=Maximal Assistance 6=Modified [place] 3=Moderate Assistance 7=Complete IndependenceIRFPAI Quality Coding Scale 6 Independent with activity with or without an assistive device 5 Patient requires set up or clean up by helper. Patient completes activity by themselves 4 Supervision or touching assist (CGA). [place] provide cues , steadying assist 3 The helper provides less than half the effort to complete the activity 2 The helper provides more than half the effort to complete the activity 1 Dependent. The helper does all the effort to complete an activity 7 Patient refused to complete or attempt activity 9 The patient did not perform the activity before the current illness or injury 88 Not attempted due to Medical conditions or safety concerns Other Treatment Pt completed w/c mobility throughout hospital. Pt was able to complete with recovery breaks. Pt maneuvered w/c over thresholds, around corners and through doors. Working increase activity tolerance and strengthening for daily functional tasks. Pt then was able to demonstrate ability to use AE to don R shoe with minimal assistance to pull tongue of shoe up. After therapy, pt waiting on lunch. Call light/phone in reach. All needs met in room. OT Short Term Goals Short Term Goals Time Frame: Jun 10, 2017 Grooming(FIM): 6 Bathing(FIM): 5 Upper Body Dressing(FIM): 3 Lower Body Dressing(FIM): 3 Transfers (B,C,W/C) (FIM): 4 Additional Short Term Goals: 1-Demonstrate ADL Tasks, 2-Verbalize Understanding , 3-ImproveStrength/Christopher 1=Demonstrate adherence to instructed precautions during ADL tasks. 2=Patient will verbalize/demonstrate understanding of assistive devices/ modifications for ADL. 3=Patient will improve strength/tolerance for activity to enable patient to perform ADL's. OT Service Center Assistant Goals Service Center Assistant Goals Time Frame: Jun 24, 2017 Eating (FIM): 6 Eating (QC): 6 Groomin Oral Hygiene (QC): 6 Bathing(FIM): 5 Shower/Bathe Self (QC): 5 Upper Body Dressing(FIM): 4 Upper Body Dressing (QC): 3 Lower Body Dressing(FIM): 5 Lower Body Dressing (QC): 5 On/Off Footwear (QC): 5 Toileting(FIM): 6 Toileting Hygiene (QC): 6 Toilet/Commode Transfer(FIM): 6 Toilet/Commode Transfer (QC): 6 Shower Transfer(FIM): 5 Additional Goals: 1-Demonstrate ADL Tasks, 2-Verbalize Understanding, 3- ImproveStrength/Christopher 1=Demonstrate adherence to instructed precautions during ADL tasks. 2=Patient will verbalize/demonstrate understanding of assistive devices/ modifications for ADL. 3=Patient will improve strength/tolerance for activity to enable patient to perform ADL's. OT Education/Plan Problem List/Assessment Pt would benefit from skilled OT to increase his independence in basic elf care to allo whim to safely return to his home and to decrease caregiver burden. Discharge Recommendations Plan/Recommendations: Continue POC Treatment Plan/Plan of Care Patient would benefit from OT for education, treatment and training to promote independence in ADL's, mobility, safety and/or upper extremity function for ADL' s. Plan of Care: ADL Retraining, Functional Mobility, Group Exercise/Act as Ind ( education, exercise, activity tolerance, functional mobility, funct activities) , UE Funct Exercise/Act, UE Neuromus Re-Ed/Coord Treatment Duration: Jun 24, 2017 Frequency: Twice Daily (5-6 days a week) Estimated Hrs Per Day: 1.5 hours per day Agreement: Yes Rehab Potential: Good Time/GCodes Start Time: 11:30 Stop Time: 12:00 Total Time Billed (hr/min): 30 Billed Treatment Time 1 visit-FA 2 (30 min) VIELKA PERES Jun 08, 2017 11:46
--- NOTE | 2017-06-08 14:44 | Physical Therapy Daily Note ---
PT Daily Note-Current Subjective Agreeable to Rx Pain Numeric Pain Scale: 3 Location: Right Location Body Site: Chest (ribs) Pain Description: Ache Mental Status Patient Orientation: Normal For Age Attachments: Other-See Comments (sling, back brace) Transfers Functional [place] Measure 0=Not Assessed/NA 4=Minimal Assistance 1=Total Assistance 5=Supervision or Setup 2=Maximal Assistance 6=Modified [place] 3=Moderate Assistance 7=Complete IndependenceIRFPAI Quality Coding Scale 6 Independent with activity with or without an assistive device 5 Patient requires set up or clean up by helper. Patient completes activity by themselves 4 Supervision or touching assist (CGA). [place] provide cues , steadying assist 3 The helper provides less than half the effort to complete the activity 2 The helper provides more than half the effort to complete the activity 1 Dependent. The helper does all the effort to complete an activity 7 Patient refused to complete or attempt activity 9 The patient did not perform the activity before the current illness or injury 88 Not attempted due to Medical conditions or safety concerns all TRFs Mod I Gait Training Gait Assistive Device: Cane Large Base Quad [id number] no LOB SBA Exercises NuStep Minutes: 12 NuStep Workload: 2 Neuromuscular for LE strengthening and coordination Assessment Current Status: Good Progress PT Short Term Goals Short Term Goals Time Frame: Jun 07, 2017 Transfers (B,C,W/C) (FIM): 4 Gait (FIM): 2 Gait Distance Comment: 50' Gait Level of Assist: 4 Gait Assistive Device: Cane Large Base Quad Wheelchair Distance: 150'x2 PT Jail Goals Jail Goals PT Jail Goals Time Frame: Jun 21, 2017 Transfers (B,C,W/C) (FIM): 5 Sit to Lying (QC): 4 Lying-Sitting on Side/Bed(QC): 4 Sit to Stand (QC): 4 Rollin Roll Left to Right (QC): 4 Chair/Jsa-yj-Pbocy Xfer(QC): 4 Car Transfer (QC): 4 Gait (FIM): 5 Distance: 150' Walk 10 feet (QC): 4 Walk 10ft-Uneven Surface(QC): 4 Walk 50ft with 2 Turns (QC): 4 Walk 150 ft (QC): 4 Gait Level of Assist: 5 Gait Assistive Device: FWW Stairs (FIM): 2 # of Steps: 4 1 Step (curb) (QC): 4 4 Steps (QC): 4 Stairs Level Of Assist: 4 PT Plan Treatment/Plan Treatment Plan: Continue Plan of Care Treatment Plan: Bed Mobility, Education, Functional Activity Christopher, Functional Strength, Group Therapy, Gait, Safety, Therapeutic Exercise, Transfers Treatment Duration: Jun 21, 2017 Frequency: At least 5-7 days/Wk (IRF) Estimated Hrs Per Day: 1.5 hours per day Patient and/or Family Agrees t: Yes Safety Risks/Education Patient Education: Gait Training, Transfer Techniques, Correct Positioning, Disease Process, Safety Issues Teaching Recipient: Patient Teaching Methods: Demonstration, Discussion Response to Teaching: Verbalize Understanding, Return Demonstration, Reinforcement Needed Time/GCodes Time In: 1330 Time Out: 1400 Total Billed Treatment Time: 30 Total Billed Treatment 1GT15m,EX15m G Codes Necessary: NADIR Dc BUSINESS SERVICES REPRESENTATIVE Jun 08, 2017 14:44
[2017-06-08 18:28] VITALS: BP 133/81
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
[2017-06-09] MEDS: IBUPROFEN 600 MG (MOTRIN) TAB PO PRN (02:10)
[2017-06-09 05:21] VITALS: BP 128/78
[2017-06-09 05:28] LABS: MEAN PLATELET VOLUME 9.4 FL (7.4-10.4); RED BLOOD COUNT 3.14 10^6/uL (4.35-5.85); RED CELL DISTRIBUTION WIDTH 18.7 % (10.0-14.5); WHITE BLOOD COUNT 6.3 10^3/uL (4.3-11.0)
[2017-06-09 05:45] LABS: ANION GAP 8 MMOL/L (5-14); BLOOD UREA NITROGEN 16 MG/DL (7-18); BUN/CREATININE RATIO 19; CALCIUM 8.5 MG/DL (8.5-10.1); CARBON DIOXIDE 25 MMOL/L (21-32); CHLORIDE 103 MMOL/L (98-107); CREATININE SERUM 0.83 MG/DL (0.60-1.30); GFR ESTIMATED > 60; GLUCOSE 99 MG/DL (70-105); POTASSIUM 4.3 MMOL/L (3.6-5.0); SODIUM 136 MMOL/L (135-145)
[2017-06-09] MEDS: oxyCODONE/APAP 10/325MG (PERCOCET 10) TABLET PO PRN ×3 (06:23→22:01)
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
[2017-06-09] MEDS: amLODIPine 5 MG (NORVASC) TAB PO SCH (08:08)
[2017-06-09] MEDS: CARVEDILOL 3.125 MG (COREG) TABLET PO SCH ×2 (08:08→20:14)
[2017-06-09] MEDS: lisINopril 10 MG (PRINIVIL) TAB PO SCH (08:08)
[2017-06-09] MEDS: FAMOTIDINE 20 MG (PEPCID) TABLET PO SCH ×2 (08:08→20:14)
[2017-06-09] MEDS: oxyCODONE ER 10 MG (OxyCONTIN CR) TAB PO SCH ×2 (08:08→20:14)
--- NOTE | 2017-06-09 10:58 | Physical Therapy Daily Note ---
PT Daily Note-Current Subjective Patient agrees to PT. Patient donns back brace with minimal assistance. Pain Numeric Pain Scale: 5-Moderate Pain Location: Right Location Body Site: Side Pain Description: Ache Mental Status Patient Orientation: Normal For Age Transfers Functional [place] Measure 0=Not Assessed/NA 4=Minimal Assistance 1=Total Assistance 5=Supervision or Setup 2=Maximal Assistance 6=Modified [place] 3=Moderate Assistance 7=Complete IndependenceIRFPAI Quality Coding Scale 6 Independent with activity with or without an assistive device 5 Patient requires set up or clean up by helper. Patient completes activity by themselves 4 Supervision or touching assist (CGA). [place] provide cues , steadying assist 3 The helper provides less than half the effort to complete the activity 2 The helper provides more than half the effort to complete the activity 1 Dependent. The helper does all the effort to complete an activity 7 Patient refused to complete or attempt activity 9 The patient did not perform the activity before the current illness or injury 88 Not attempted due to Medical conditions or safety concerns Transfers (B, C, W/C) (FIM): 6 Scootin Sit to/from Stand: 6 Sit to Stand (QC): 5 Car Transfer (QC): 5 Weight Bearing Weight Bearing Restriction: Weight Bearing/Tolerated Location Restriction: LE Bilateral Gait Training Does the Patient Walk?: Yes Gait (FIM): 6 Distance (FIM): 3=150 ft Distance: 300' x 4 Walk 10 feet (QC): 5 Walk 50 ft with 2 Turns(QC): 5 Walk 150 ft (QC): 5 Walking 10ft/uneven surface-QC: 5 Gait Level of Assist: 6 Gait Assistive Device: Cane Small Base Quad Patient demonstrated ability to ambulate without assistive device with good balance and gait sequence Stair Training Stair Training: Handrails/: 1 handrail Stairs (FIM): 5 #of Steps: 24 1 Step (curb) (QC): 5 4 Steps (QC): 5 12 Steps (QC): 5 Stairs: Pattern: Reciprocal Level of Assist: 5 Exercises Standing: Heel/toe raises, 3 way Ex=Flex, Abd, Ext, Mini squats Standing Reps: 20 (x 2 sets) Assessment Patient has made great progress and desires to return to home soon. PT Short Term Goals Short Term Goals Time Frame: Jun 07, 2017 Transfers (B,C,W/C) (FIM): 4 Gait (FIM): 2 Gait Distance Comment: 50' Gait Level of Assist: 4 Gait Assistive Device: Cane Large Base Quad Wheelchair Distance: 150'x2 PT Group Home Goals Group Home Goals PT Group Home Goals Time Frame: Jun 21, 2017 Transfers (B,C,W/C) (FIM): 5 Sit to Lying (QC): 4 Lying-Sitting on Side/Bed(QC): 4 Sit to Stand (QC): 4 Rollin Roll Left to Right (QC): 4 Chair/[id number]-[id number] Xfer(QC): 4 Car Transfer (QC): 4 Gait (FIM): 5 Distance: 150' Walk 10 feet (QC): 4 Walk 10ft-Uneven Surface(QC): 4 Walk 50ft with 2 Turns (QC): 4 Walk 150 ft (QC): 4 Gait Level of Assist: 5 Gait Assistive Device: FWW Stairs (FIM): 2 # of Steps: 4 1 Step (curb) (QC): 4 4 Steps (QC): 4 Stairs Level Of Assist: 4 PT Plan Treatment/Plan Treatment Plan: Continue Plan of Care Treatment Plan: Bed Mobility, Education, Functional Activity Christopher, Functional Strength, Group Therapy, Gait, Safety, Therapeutic Exercise, Transfers Treatment Duration: Jun 21, 2017 Frequency: At least 5-7 days/Wk (IRF) Estimated Hrs Per Day: 1.5 hours per day Patient and/or Family Agrees t: Yes Time/GCodes Time In: 1000 Time Out: 1100 Total Billed Treatment Time: 60 Total Billed Treatment 1 visit GT x 2 35 min FA 10 min EX 15 min LARRY JASSO PT Jun 09, 2017 10:58
--- NOTE | 2017-06-09 13:27 | Occupational Ther Daily Note ---
OT Current Status-Daily Note Subjective Pt alert, sitting in w/c. Pt agreed to therapy. Pt states that he just doesn' t feel like doing anything. Physician came into room for rounds and discussed pt's progress. Mental Status/Objective Patient Orientation: Person, Place, Time, Situation Functional [place] Measure 0=Not Assessed/NA 4=Minimal Assistance 1=Total Assistance 5=Supervision or Setup 2=Maximal Assistance 6=Modified [place] 3=Moderate Assistance 7=Complete [place] ADL-Treatment Pt declined completing shower, sponge bath or grooming. Pt requires min A for donning TLSO. Pt working on donning shoes with AE. Pt is having difficult time with donning shoes due to pain with ribs and back. Pt is attempting to use nursing clerk and long handle shoe horn. Pt has demonstrated donning L shoe easier than R shoe. Soft sock aide required to don sock due to increased size of pt's foot. Pt ambulated to therapy gym with CGA using cane. Functional [place] Measure 0=Not Assessed/NA 4=Minimal Assistance 1=Total Assistance 5=Supervision or Setup 2=Maximal Assistance 6=Modified [place] 3=Moderate Assistance 7=Complete IndependenceIRFPAI Quality Coding Scale 6 Independent with activity with or without an assistive device 5 Patient requires set up or clean up by helper. Patient completes activity by themselves 4 Supervision or touching assist (CGA). [place] provide cues , steadying assist 3 The helper provides less than half the effort to complete the activity 2 The helper provides more than half the effort to complete the activity 1 Dependent. The helper does all the effort to complete an activity 7 Patient refused to complete or attempt activity 9 The patient did not perform the activity before the current illness or injury 88 Not attempted due to Medical conditions or safety concerns On/Off Footwear (QC): 2 Other Treatment Pt completed arm bike duration 15 min at 15 fletcher resistance with 3 breaks to increase strength and activity tolerance for daily functional tasks. Pt ambulated back to room and sat in w/c. Call light/phone in reach. All needs met in room. OT Short Term Goals Short Term Goals Time Frame: Jun 10, 2017 Grooming(FIM): 6 Bathing(FIM): 5 Upper Body Dressing(FIM): 3 Lower Body Dressing(FIM): 3 Transfers (B,C,W/C) (FIM): 4 Additional Short Term Goals: 1-Demonstrate ADL Tasks, 2-Verbalize Understanding , 3-ImproveStrength/Christopher 1=Demonstrate adherence to instructed precautions during ADL tasks. 2=Patient will verbalize/demonstrate understanding of assistive devices/ modifications for ADL. 3=Patient will improve strength/tolerance for activity to enable patient to perform ADL's. OT Mcfp Goals Foot Press Operator Goals Time Frame: Jun 24, 2017 Eating (FIM): 6 Eating (QC): 6 Groomin Oral Hygiene (QC): 6 Bathing(FIM): 5 Shower/Bathe Self (QC): 5 Upper Body Dressing(FIM): 4 Upper Body Dressing (QC): 3 Lower Body Dressing(FIM): 5 Lower Body Dressing (QC): 5 On/Off Footwear (QC): 5 Toileting(FIM): 6 Toileting Hygiene (QC): 6 Toilet/Commode Transfer(FIM): 6 Toilet/Commode Transfer (QC): 6 Shower Transfer(FIM): 5 Additional Goals: 1-Demonstrate ADL Tasks, 2-Verbalize Understanding, 3- ImproveStrength/Christopher 1=Demonstrate adherence to instructed precautions during ADL tasks. 2=Patient will verbalize/demonstrate understanding of assistive devices/ modifications for ADL. 3=Patient will improve strength/tolerance for activity to enable patient to perform ADL's. OT Education/Plan Problem List/Assessment Pt would benefit from skilled OT to increase his independence in basic elf care to allo whim to safely return to his home and to decrease caregiver burden. Discharge Recommendations Plan/Recommendations: Continue POC Treatment Plan/Plan of Care Patient would benefit from OT for education, treatment and training to promote independence in ADL's, mobility, safety and/or upper extremity function for ADL' s. Plan of Care: ADL Retraining, Functional Mobility, Group Exercise/Act as Ind ( education, exercise, activity tolerance, functional mobility, funct activities) , UE Funct Exercise/Act, UE Neuromus Re-Ed/Coord Treatment Duration: Jun 24, 2017 Frequency: Twice Daily (5-6 days a week) Estimated Hrs Per Day: 1.5 hours per day Agreement: Yes Rehab Potential: Good Time/GCodes Start Time: 08:00 Stop Time: 09:00 Total Time Billed (hr/min): 60 Billed Treatment Time 1 visit-FA 2 (37 min) EX 2 (23 min) VIELKA PERES Jun 09, 2017 13:27
--- NOTE | 2017-06-09 13:28 | Occupational Ther Daily Note ---
OT Current Status-Daily Note Subjective Pt alert, lying in bed. Pt agreed to therapy. Pt c/o pain, reported to nrsg. Mental Status/Objective Functional [place] Measure 0=Not Assessed/NA 4=Minimal Assistance 1=Total Assistance 5=Supervision or Setup 2=Maximal Assistance 6=Modified [place] 3=Moderate Assistance 7=Complete [place] ADL-Treatment Pt ambulated to bathroom without AE. Pt able to transfer onto toilet using grabbar by self. Using AE to cleanse self, pt is able to complete hygiene and clothing manipulation. Assist to don shoes. Pt ambulated to large shower room with cane. Pt worked on tub bench transfers for tub/showers. Pt was able to complete by self. Pt ambulated back to room with AE. After therapy, pt sitting in w/c with call light/phone in reach. All needs met in room. Functional [place] Measure 0=Not Assessed/NA 4=Minimal Assistance 1=Total Assistance 5=Supervision or Setup 2=Maximal Assistance 6=Modified [place] 3=Moderate Assistance 7=Complete IndependenceIRFPAI Quality Coding Scale 6 Independent with activity with or without an assistive device 5 Patient requires set up or clean up by helper. Patient completes activity by themselves 4 Supervision or touching assist (CGA). [place] provide cues , steadying assist 3 The helper provides less than half the effort to complete the activity 2 The helper provides more than half the effort to complete the activity 1 Dependent. The helper does all the effort to complete an activity 7 Patient refused to complete or attempt activity 9 The patient did not perform the activity before the current illness or injury 88 Not attempted due to Medical conditions or safety concerns OT Short Term Goals Short Term Goals Time Frame: Jun 10, 2017 Grooming(FIM): 6 Bathing(FIM): 5 Upper Body Dressing(FIM): 3 Lower Body Dressing(FIM): 3 Transfers (B,C,W/C) (FIM): 4 Additional Short Term Goals: 1-Demonstrate ADL Tasks, 2-Verbalize Understanding , 3-ImproveStrength/Christopher 1=Demonstrate adherence to instructed precautions during ADL tasks. 2=Patient will verbalize/demonstrate understanding of assistive devices/ modifications for ADL. 3=Patient will improve strength/tolerance for activity to enable patient to perform ADL's. OT Utility Tender Carding Goals Utility Tender Carding Goals Time Frame: Jun 24, 2017 Eating (FIM): 6 Eating (QC): 6 Groomin Oral Hygiene (QC): 6 Bathing(FIM): 5 Shower/Bathe Self (QC): 5 Upper Body Dressing(FIM): 4 Upper Body Dressing (QC): 3 Lower Body Dressing(FIM): 5 Lower Body Dressing (QC): 5 On/Off Footwear (QC): 5 Toileting(FIM): 6 Toileting Hygiene (QC): 6 Toilet/Commode Transfer(FIM): 6 Toilet/Commode Transfer (QC): 6 Shower Transfer(FIM): 5 Additional Goals: 1-Demonstrate ADL Tasks, 2-Verbalize Understanding, 3- ImproveStrength/Christopher 1=Demonstrate adherence to instructed precautions during ADL tasks. 2=Patient will verbalize/demonstrate understanding of assistive devices/ modifications for ADL. 3=Patient will improve strength/tolerance for activity to enable patient to perform ADL's. OT Education/Plan Problem List/Assessment Pt would benefit from skilled OT to increase his independence in basic elf care to allo whim to safely return to his home and to decrease caregiver burden. Discharge Recommendations Plan/Recommendations: Continue POC Treatment Plan/Plan of Care Patient would benefit from OT for education, treatment and training to promote independence in ADL's, mobility, safety and/or upper extremity function for ADL' s. Plan of Care: ADL Retraining, Functional Mobility, Group Exercise/Act as Ind ( education, exercise, activity tolerance, functional mobility, funct activities) , UE Funct Exercise/Act, UE Neuromus Re-Ed/Coord Treatment Duration: Jun 24, 2017 Frequency: Twice Daily (5-6 days a week) Estimated Hrs Per Day: 1.5 hours per day Agreement: Yes Rehab Potential: Good Time/GCodes Start Time: 13:00 Stop Time: 13:30 Total Time Billed (hr/min): 30 Billed Treatment Time 1 visit-FA 2 (30 min) VIELKA PERES Jun 09, 2017 13:28
--- NOTE | 2017-06-09 14:08 | Physical Therapy Daily Note ---
PT Daily Note-Current Subjective Patient agrees to PT. Pain Numeric Pain Scale: 5-Moderate Pain Location: Right Location Body Site: Side Pain Description: Ache Mental Status Patient Orientation: Normal For Age Transfers Functional [place] Measure 0=Not Assessed/NA 4=Minimal Assistance 1=Total Assistance 5=Supervision or Setup 2=Maximal Assistance 6=Modified [place] 3=Moderate Assistance 7=Complete IndependenceIRFPAI Quality Coding Scale 6 Independent with activity with or without an assistive device 5 Patient requires set up or clean up by helper. Patient completes activity by themselves 4 Supervision or touching assist (CGA). [place] provide cues , steadying assist 3 The helper provides less than half the effort to complete the activity 2 The helper provides more than half the effort to complete the activity 1 Dependent. The helper does all the effort to complete an activity 7 Patient refused to complete or attempt activity 9 The patient did not perform the activity before the current illness or injury 88 Not attempted due to Medical conditions or safety concerns Transfers (B, C, W/C) (FIM): 6 Scootin Sit to/from Stand: 6 Sit to Stand (QC): 5 Car Transfer (QC): 5 Gait Training Does the Patient Walk?: Yes Gait (FIM): 7 Distance (FIM): 6=739-50 ft Distance: 100' x 2 Walk 10 feet (QC): 6 Walk 50 ft with 2 Turns(QC): 6 Gait Level of Assist: 7 Gait Assistive Device: None safe and functional Exercises Seated Therapy Exercises: Ankle pumps, Long arc quads Seated Reps: 25 (x 3 sets) NuStep Minutes: 20 NuStep Workload: 5 (to increase strength and functional mobility) Assessment Current Status: Excellent Progress PT Short Term Goals Short Term Goals Time Frame: Jun 07, 2017 Transfers (B,C,W/C) (FIM): 4 Gait (FIM): 2 Gait Distance Comment: 50' Gait Level of Assist: 4 Gait Assistive Device: Cane Large Base Quad Wheelchair Distance: 150'x2 PT Longterm Goals General Merchandise Manager Goals PT General Merchandise Manager Goals Time Frame: Jun 21, 2017 Transfers (B,C,W/C) (FIM): 5 Sit to Lying (QC): 4 Lying-Sitting on Side/Bed(QC): 4 Sit to Stand (QC): 4 Rollin Roll Left to Right (QC): 4 Chair/[id number] Xfer(QC): 4 Car Transfer (QC): 4 Gait (FIM): 5 Distance: 150' Walk 10 feet (QC): 4 Walk 10ft-Uneven Surface(QC): 4 Walk 50ft with 2 Turns (QC): 4 Walk 150 ft (QC): 4 Gait Level of Assist: 5 Gait Assistive Device: FWW Stairs (FIM): 2 # of Steps: 4 1 Step (curb) (QC): 4 4 Steps (QC): 4 Stairs Level Of Assist: 4 PT Plan Treatment/Plan Treatment Plan: Continue Plan of Care Treatment Plan: Bed Mobility, Education, Functional Activity Christopher, Functional Strength, Group Therapy, Gait, Safety, Therapeutic Exercise, Transfers Treatment Duration: Jun 21, 2017 Frequency: At least 5-7 days/Wk (IRF) Estimated Hrs Per Day: 1.5 hours per day Patient and/or Family Agrees t: Yes Time/GCodes Time In: 1330 Time Out: 1400 Total Billed Treatment Time: 30 Total Billed Treatment 1 visit EX x 2 30 min LARRY JASSO PT Jun 09, 2017 14:08
[2017-06-09 18:30] VITALS: BP 132/77
[2017-06-09 19:55] VITALS: BP 136/77
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
[2017-06-10] MEDS: BACLOFEN 10 MG (LIORESAL) TAB PO PRN (03:07)
[2017-06-10] MEDS: IBUPROFEN 600 MG (MOTRIN) TAB PO PRN (03:07)
[2017-06-10] MEDS: oxyCODONE/APAP 10/325MG (PERCOCET 10) TABLET PO PRN ×3 (04:12→18:50)
[2017-06-10 05:45] VITALS: BP 119/72
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
--- NOTE | 2017-06-10 08:32 | Occupational Ther Daily Note ---
OT Current Status-Daily Note Subjective Pt alert, sitting in recliner. Nrsg present in room. Pt stated that he had taken a muscle relaxer around 0400 and is very tired, but was able to rest. Pt agreed to therapy. No c/o pain. Mental Status/Objective Patient Orientation: Person, Place, Time, Situation Functional [place] Measure 0=Not Assessed/NA 4=Minimal Assistance 1=Total Assistance 5=Supervision or Setup 2=Maximal Assistance 6=Modified [place] 3=Moderate Assistance 7=Complete [place] Attachments: Other-See Comments (TLSO) ADL-Treatment Functional [place] Measure 0=Not Assessed/NA 4=Minimal Assistance 1=Total Assistance 5=Supervision or Setup 2=Maximal Assistance 6=Modified [place] 3=Moderate Assistance 7=Complete IndependenceIRFPAI Quality Coding Scale 6 Independent with activity with or without an assistive device 5 Patient requires set up or clean up by helper. Patient completes activity by themselves 4 Supervision or touching assist (CGA). [place] provide cues , steadying assist 3 The helper provides less than half the effort to complete the activity 2 The helper provides more than half the effort to complete the activity 1 Dependent. The helper does all the effort to complete an activity 7 Patient refused to complete or attempt activity 9 The patient did not perform the activity before the current illness or injury 88 Not attempted due to Medical conditions or safety concerns Eating (FIM): 6 (Pt able to set self up and use regular utensils to cut food and feed self.) Bathing (FIM): 4 (Using grabbar, hand held shower and shower bench pt is able to complete bathing by self. Pt requires assist to dry B lower legs.) Bathing Location: L Arm, R Arm, L Upper Leg, R Upper Leg, L Lower Leg ( including foot), R Lower Leg (including foot), Chest, Abdomen, Buttocks, Perineal Area Upper Body (FIM): 4 (Pt required min A donning shirt due to shldr injury. Pt able to doff by self.) Lower Body Dressing (FIM): 4 (Using AE to don/doff socks and shoes, min A. Pt able to don/doff pants by self.) Toileting (FIM): 6 (Pt able to complete toileting by self using AE for cleansing.) Transfers (B, C, W/C) (FIM): 6 (Pt able to complete transfers on own with and without AE.) Toilet/Commode Transfer (FIM): 6 (Using grabbar pt is able to complete on own.) Shower Transfer(FIM): 6 (Using shower bench and grabbars pt is able to complete on own.) Other Treatment Pt completed bed mobility on own with HOB slightly raised to lie down in bed. Pt then complete red theraband (medium resistance) with L UE to strengthen for daily functional activities. After therapy, pt lying in bed with call light/ phone in reach. All needs met in room. OT Short Term Goals Short Term Goals Time Frame: Jun 10, 2017 Grooming(FIM): 6 Bathing(FIM): 5 Upper Body Dressing(FIM): 3 Lower Body Dressing(FIM): 3 Transfers (B,C,W/C) (FIM): 4 Additional Short Term Goals: 1-Demonstrate ADL Tasks, 2-Verbalize Understanding , 3-ImproveStrength/Christopher 1=Demonstrate adherence to instructed precautions during ADL tasks. 2=Patient will verbalize/demonstrate understanding of assistive devices/ modifications for ADL. 3=Patient will improve strength/tolerance for activity to enable patient to perform ADL's. OT Fpc Goals Fpc Goals Time Frame: Jun 24, 2017 Eating (FIM): 6 Eating (QC): 6 Groomin Oral Hygiene (QC): 6 Bathing(FIM): 5 Shower/Bathe Self (QC): 5 Upper Body Dressing(FIM): 4 Upper Body Dressing (QC): 3 Lower Body Dressing(FIM): 5 Lower Body Dressing (QC): 5 On/Off Footwear (QC): 5 Toileting(FIM): 6 Toileting Hygiene (QC): 6 Toilet/Commode Transfer(FIM): 6 Toilet/Commode Transfer (QC): 6 Shower Transfer(FIM): 5 Additional Goals: 1-Demonstrate ADL Tasks, 2-Verbalize Understanding, 3- ImproveStrength/Christopher 1=Demonstrate adherence to instructed precautions during ADL tasks. 2=Patient will verbalize/demonstrate understanding of assistive devices/ modifications for ADL. 3=Patient will improve strength/tolerance for activity to enable patient to perform ADL's. OT Education/Plan Problem List/Assessment Pt would benefit from skilled OT to increase his independence in basic elf care to allo whim to safely return to his home and to decrease caregiver burden. Discharge Recommendations Plan/Recommendations: Continue POC Treatment Plan/Plan of Care Patient would benefit from OT for education, treatment and training to promote independence in ADL's, mobility, safety and/or upper extremity function for ADL' s. Plan of Care: ADL Retraining, Functional Mobility, Group Exercise/Act as Ind ( education, exercise, activity tolerance, functional mobility, funct activities) , UE Funct Exercise/Act, UE Neuromus Re-Ed/Coord Treatment Duration: Jun 24, 2017 Frequency: Twice Daily (5-6 days a week) Estimated Hrs Per Day: 1.5 hours per day Agreement: Yes Rehab Potential: Good Time/GCodes Start Time: 08:00 Stop Time: 09:00 Total Time Billed (hr/min): 60 Billed Treatment Time 1 visit-ADL 3 (50 min) EX 1 (10 min) VIELKA PERES Jun 10, 2017 08:32
[2017-06-10] MEDS: FAMOTIDINE 20 MG (PEPCID) TABLET PO SCH ×2 (08:51→20:19)
[2017-06-10] MEDS: amLODIPine 5 MG (NORVASC) TAB PO SCH (08:51)
[2017-06-10] MEDS: lisINopril 10 MG (PRINIVIL) TAB PO SCH (08:51)
[2017-06-10] MEDS: oxyCODONE ER 10 MG (OxyCONTIN CR) TAB PO SCH (08:51)
[2017-06-10] MEDS: CARVEDILOL 3.125 MG (COREG) TABLET PO SCH ×2 (08:51→20:18)
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
--- NOTE | 2017-06-10 12:48 | Physical Therapy Daily Note ---
PT Daily Note-Current Subjective Patient agrees to PT. Pain Numeric Pain Scale: 5-Moderate Pain Location: Right Location Body Site: Side Pain Description: Ache Mental Status Patient Orientation: Normal For Age Transfers Functional [place] Measure 0=Not Assessed/NA 4=Minimal Assistance 1=Total Assistance 5=Supervision or Setup 2=Maximal Assistance 6=Modified [place] 3=Moderate Assistance 7=Complete IndependenceIRFPAI Quality Coding Scale 6 Independent with activity with or without an assistive device 5 Patient requires set up or clean up by helper. Patient completes activity by themselves 4 Supervision or touching assist (CGA). [place] provide cues , steadying assist 3 The helper provides less than half the effort to complete the activity 2 The helper provides more than half the effort to complete the activity 1 Dependent. The helper does all the effort to complete an activity 7 Patient refused to complete or attempt activity 9 The patient did not perform the activity before the current illness or injury 88 Not attempted due to Medical conditions or safety concerns Transfers (B, C, W/C) (FIM): 6 Scootin Sit to/from Stand: 6 Sit to Stand (QC): 5 Car Transfer (QC): 5 Gait Training Does the Patient Walk?: Yes Gait (FIM): 6 Distance (FIM): 3=150 ft Distance: 300' x 4 Walk 10 feet (QC): 5 Walk 50 ft with 2 Turns(QC): 5 Walk 150 ft (QC): 5 Walking 10ft/uneven surface-QC: 5 Gait Level of Assist: 6 Gait Assistive Device: Cane Small Base Quad safe and functional with and without assistive device Stair Training Stair Training: Handrails/: 1 handrail Stairs (FIM): 6 #of Steps: 24 1 Step (curb) (QC): 5 4 Steps (QC): 5 12 Steps (QC): 5 Stairs: Pattern: Reciprocal Level of Assist: 6 Exercises Seated Therapy Exercises: Ankle pumps, Long arc quads Seated Reps: 25 (3 sets) Standin way Ex=Flex, Abd, Ext Standing Reps: 25 (2 x sets) NuStep Minutes: 15 NuStep Workload: 5 (utilized to increase pulmonary function due to fracture ribs and pain) Assessment Current Status: Excellent Progress PT Short Term Goals Short Term Goals Time Frame: Jun 07, 2017 Transfers (B,C,W/C) (FIM): 4 Gait (FIM): 2 Gait Distance Comment: 50' Gait Level of Assist: 4 Gait Assistive Device: Cane Large Base Quad Wheelchair Distance: 150'x2 PT Jail Goals Cylinder Die Machine Operator Goals PT Cylinder Die Machine Operator Goals Time Frame: Jun 21, 2017 Transfers (B,C,W/C) (FIM): 5 Sit to Lying (QC): 4 Lying-Sitting on Side/Bed(QC): 4 Sit to Stand (QC): 4 Rollin Roll Left to Right (QC): 4 Chair/Tpl-kv-Tptvo Xfer(QC): 4 Car Transfer (QC): 4 Gait (FIM): 5 Distance: 150' Walk 10 feet (QC): 4 Walk 10ft-Uneven Surface(QC): 4 Walk 50ft with 2 Turns (QC): 4 Walk 150 ft (QC): 4 Gait Level of Assist: 5 Gait Assistive Device: FWW Stairs (FIM): 2 # of Steps: 4 1 Step (curb) (QC): 4 4 Steps (QC): 4 Stairs Level Of Assist: 4 PT Plan Treatment/Plan Treatment Plan: Continue Plan of Care Treatment Plan: Bed Mobility, Education, Functional Activity Christopher, Functional Strength, Group Therapy, Gait, Safety, Therapeutic Exercise, Transfers Treatment Duration: Jun 21, 2017 Frequency: At least 5-7 days/Wk (IRF) Estimated Hrs Per Day: 1.5 hours per day Patient and/or Family Agrees t: Yes Time/GCodes Time In: 1101 Time Out: 1201 Total Billed Treatment Time: 60 Total Billed Treatment 1 visit GT x 2 30 min EX x 2 30 min LARRY JSASO PT Jun 10, 2017 12:48
--- NOTE | 2017-06-10 14:29 | Therapy Group Daily Note ---
Therapy Daily Group Note Patient Education Topic Other List Below Exercises LE Seated Exercise, UE Exercise Other/Notes Pt was an active participant in OT/PT group. He introduced himself by describing a school memory. He contributed to group discussion/education on memory strategies and was able to make matches on a memory activity. He also did seated UE and LE exercises to strengthen himself for transfers and ADLs. He took himself back to his room per w/c, all needs met. Start Time: 13:00 Stop Time: 14:00 Total Billed Treatment Time: 60 Total Billed Treatment visit, 60 minutes group YARA RICHMOND OT Jun 10, 2017 14:29
[2017-06-10 17:43] VITALS: BP 120/76
[2017-06-10] MEDS: oxyCODONE ER 20 MG (OxyCONTIN CR) TAB PO SCH (20:19)
[2017-06-11] MEDS: oxyCODONE/APAP 10/325MG (PERCOCET 10) TABLET PO PRN ×4 (00:59→19:50)
[2017-06-11] MEDS: BACLOFEN 10 MG (LIORESAL) TAB PO PRN (00:59)
[2017-06-11 05:00] VITALS: BP 117/77
[2017-06-11] MEDS: FAMOTIDINE 20 MG (PEPCID) TABLET PO SCH ×2 (07:49→20:28)
[2017-06-11] MEDS: amLODIPine 5 MG (NORVASC) TAB PO SCH (07:49)
[2017-06-11] MEDS: lisINopril 10 MG (PRINIVIL) TAB PO SCH (07:49)
[2017-06-11] MEDS: CARVEDILOL 3.125 MG (COREG) TABLET PO SCH ×2 (07:49→20:28)
[2017-06-11] MEDS: oxyCODONE ER 20 MG (OxyCONTIN CR) TAB PO SCH ×2 (07:50→20:28)
--- NOTE | 2017-06-11 07:50 | Physical Therapy Daily Note ---
PT Daily Note-Current Subjective Patient is in bed and agrees to PT. Pain Numeric Pain Scale: 5-Moderate Pain Location: Right Location Body Site: Side Pain Description: Ache Mental Status Patient Orientation: Normal For Age Transfers Functional [place] Measure 0=Not Assessed/NA 4=Minimal Assistance 1=Total Assistance 5=Supervision or Setup 2=Maximal Assistance 6=Modified [place] 3=Moderate Assistance 7=Complete IndependenceIRFPAI Quality Coding Scale 6 Independent with activity with or without an assistive device 5 Patient requires set up or clean up by helper. Patient completes activity by themselves 4 Supervision or touching assist (CGA). [place] provide cues , steadying assist 3 The helper provides less than half the effort to complete the activity 2 The helper provides more than half the effort to complete the activity 1 Dependent. The helper does all the effort to complete an activity 7 Patient refused to complete or attempt activity 9 The patient did not perform the activity before the current illness or injury 88 Not attempted due to Medical conditions or safety concerns Transfers (B, C, W/C) (FIM): 6 Scootin Rollin Roll Left to Right (QC): 5 Supine to/from Sit: 6 Sit to/from Stand: 6 Sit to Lying (QC): 5 Sit to Stand (QC): 5 Chair/Urn-rf-Xasjk Xfer(QC): 5 Bed to/from Chair: 5 Car Transfer (QC): 5 Gait Training Does the Patient Walk?: Yes Gait (FIM): 7 Distance (FIM): 3=150 ft Distance: 150' x 2 Walk 10 feet (QC): 6 Walk 50 ft with 2 Turns(QC): 6 Walk 150 ft (QC): 6 Gait Level of Assist: 7 Gait Assistive Device: None safe and functional Exercises NuStep Minutes: 13 NuStep Workload: 5 (to increase strength and mobility to return to home at independent PLOF) Assessment Current Status: Excellent Progress PT Short Term Goals Short Term Goals Time Frame: Jun 07, 2017 Transfers (B,C,W/C) (FIM): 4 Gait (FIM): 2 Gait Distance Comment: 50' Gait Level of Assist: 4 Gait Assistive Device: Cane Large Base Quad Wheelchair Distance: 150'x2 PT Pmo Consultant Goals Alf Goals PT Alf Goals Time Frame: Jun 21, 2017 Transfers (B,C,W/C) (FIM): 5 Sit to Lying (QC): 4 Lying-Sitting on Side/Bed(QC): 4 Sit to Stand (QC): 4 Rollin Roll Left to Right (QC): 4 Chair/Hic-nz-Ifpwd Xfer(QC): 4 Car Transfer (QC): 4 Gait (FIM): 5 Distance: 150' Walk 10 feet (QC): 4 Walk 10ft-Uneven Surface(QC): 4 Walk 50ft with 2 Turns (QC): 4 Walk 150 ft (QC): 4 Gait Level of Assist: 5 Gait Assistive Device: FWW Stairs (FIM): 2 # of Steps: 4 1 Step (curb) (QC): 4 4 Steps (QC): 4 Stairs Level Of Assist: 4 PT Plan Treatment/Plan Treatment Plan: Continue Plan of Care Treatment Plan: Bed Mobility, Education, Functional Activity Christopher, Functional Strength, Group Therapy, Gait, Safety, Therapeutic Exercise, Transfers Treatment Duration: Jun 21, 2017 Frequency: At least 5-7 days/Wk (IRF) Estimated Hrs Per Day: 1.5 hours per day Patient and/or Family Agrees t: Yes Time/GCodes Time In: 700 Time Out: 723 Total Billed Treatment Time: 23 Total Billed Treatment 1 visit GT 10 min EX 13 min LARRY JASSO PT Jun 11, 2017 07:49
[2017-06-11 18:06] VITALS: BP 134/75
[2017-06-12] MEDS: oxyCODONE/APAP 10/325MG (PERCOCET 10) TABLET PO PRN ×4 (01:51→20:06)
[2017-06-12 06:05] VITALS: BP 123/80
[2017-06-12] MEDS: amLODIPine 5 MG (NORVASC) TAB PO SCH (08:02)
[2017-06-12] MEDS: oxyCODONE ER 20 MG (OxyCONTIN CR) TAB PO SCH ×2 (08:02→20:06)
[2017-06-12] MEDS: CARVEDILOL 3.125 MG (COREG) TABLET PO SCH ×2 (08:02→20:06)
[2017-06-12] MEDS: FAMOTIDINE 20 MG (PEPCID) TABLET PO SCH ×2 (08:02→20:06)
[2017-06-12] MEDS: lisINopril 10 MG (PRINIVIL) TAB PO SCH (08:02)
[2017-06-12 19:12] VITALS: BP 142/79
[2017-06-13] MEDS: IBUPROFEN 600 MG (MOTRIN) TAB PO PRN (00:30)
[2017-06-13] MEDS: oxyCODONE/APAP 10/325MG (PERCOCET 10) TABLET PO PRN ×4 (01:57→22:38)
[2017-06-13 05:10] VITALS: BP 124/76
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
[2017-06-13] MEDS: CARVEDILOL 3.125 MG (COREG) TABLET PO SCH ×2 (08:05→21:06)
[2017-06-13] MEDS: amLODIPine 5 MG (NORVASC) TAB PO SCH (08:05)
[2017-06-13] MEDS: lisINopril 10 MG (PRINIVIL) TAB PO SCH (08:05)
[2017-06-13] MEDS: FAMOTIDINE 20 MG (PEPCID) TABLET PO SCH ×2 (08:05→21:06)
[2017-06-13] MEDS: oxyCODONE ER 20 MG (OxyCONTIN CR) TAB PO SCH ×2 (08:06→21:05)
--- NOTE | 2017-06-13 08:46 | Occupational Ther Daily Note ---
OT Current Status-Daily Note Subjective Pt alert, lying in bed. Pt agreed to therapy. Pt c/o pain, rated 5/10. Nrsg told. Mental Status/Objective Patient Orientation: Person, Place, Time, Situation Functional [place] Measure 0=Not Assessed/NA 4=Minimal Assistance 1=Total Assistance 5=Supervision or Setup 2=Maximal Assistance 6=Modified [place] 3=Moderate Assistance 7=Complete [place] Attachments: Other-See Comments (TLSO) ADL-Treatment Functional [place] Measure 0=Not Assessed/NA 4=Minimal Assistance 1=Total Assistance 5=Supervision or Setup 2=Maximal Assistance 6=Modified [place] 3=Moderate Assistance 7=Complete IndependenceIRFPAI Quality Coding Scale 6 Independent with activity with or without an assistive device 5 Patient requires set up or clean up by helper. Patient completes activity by themselves 4 Supervision or touching assist (CGA). [place] provide cues , steadying assist 3 The helper provides less than half the effort to complete the activity 2 The helper provides more than half the effort to complete the activity 1 Dependent. The helper does all the effort to complete an activity 7 Patient refused to complete or attempt activity 9 The patient did not perform the activity before the current illness or injury 88 Not attempted due to Medical conditions or safety concerns Eating (FIM): 6 (Pt able to complete set up and use regular utensils to cut food and feed self.) Grooming (FIM): 6 (At w/c level, pt is able to complete own grooming. Pt is able to stand at sink to complete part of grooming then requires seat due to decreased activity tolerance.) Bathing (FIM): 4 (Using grabbar, shower bench, long handle sponge and hand held shower pt is able to complete own bathing. Pt is able to rinse self then dries self except lower legs due to back precautions.) Bathing Location: L Arm, R Arm, L Upper Leg, R Upper Leg, L Lower Leg ( including foot), R Lower Leg (including foot), Chest, Abdomen, Buttocks, Perineal Area Upper Body (FIM): 4 (Pt is able to doff shirt by self. Pt is able to thread R UE into sleeve, assist to bring shirt around back to thread L UE into sleeve.) Lower Body Dressing (FIM): 4 (Pt is able to don/doff pants. AE to don/doff socks. Doffs shoes by self. Mod A to don R shoe, dons L shoe with AE.) Toileting (FIM): 6 (Using AE to cleanse self. Manipulates clothing by self.) Transfers (B, C, W/C) (FIM): 6 (Pt has cane to use for transfers though does not use consistently. Has TLSO when up.) Toilet/Commode Transfer (FIM): 6 (Using grabbar, pt able to complete by self.) Shower Transfer(FIM): 6 (Using grabbar and shower bench, pt is able to complete by self.) Pt demonstrates improvement with ADLs. Pt c/o pain with ribs and has back and R shldr precautions that hinder movement and ability to perform tasks efficiently. Pt also has decreased activity tolerance, but pt has stated that this was occurring prior to hospitalization. After therapy, pt sitting in w/c with call light/phone in reach. All needs met in room. OT Short Term Goals Short Term Goals Time Frame: Jun 10, 2017 Grooming(FIM): 6 Bathing(FIM): 5 Upper Body Dressing(FIM): 3 Lower Body Dressing(FIM): 3 Transfers (B,C,W/C) (FIM): 4 Additional Short Term Goals: 1-Demonstrate ADL Tasks, 2-Verbalize Understanding , 3-ImproveStrength/Christopher 1=Demonstrate adherence to instructed precautions during ADL tasks. 2=Patient will verbalize/demonstrate understanding of assistive devices/ modifications for ADL. 3=Patient will improve strength/tolerance for activity to enable patient to perform ADL's. OT Senior Living Goals Small Parts Shaper Operator Goals Time Frame: Jun 24, 2017 Eating (FIM): 6 Eating (QC): 6 Groomin Oral Hygiene (QC): 6 Bathing(FIM): 5 Shower/Bathe Self (QC): 5 Upper Body Dressing(FIM): 4 Upper Body Dressing (QC): 3 Lower Body Dressing(FIM): 5 Lower Body Dressing (QC): 5 On/Off Footwear (QC): 5 Toileting(FIM): 6 Toileting Hygiene (QC): 6 Toilet/Commode Transfer(FIM): 6 Toilet/Commode Transfer (QC): 6 Shower Transfer(FIM): 5 Additional Goals: 1-Demonstrate ADL Tasks, 2-Verbalize Understanding, 3- ImproveStrength/Christopher 1=Demonstrate adherence to instructed precautions during ADL tasks. 2=Patient will verbalize/demonstrate understanding of assistive devices/ modifications for ADL. 3=Patient will improve strength/tolerance for activity to enable patient to perform ADL's. OT Education/Plan Problem List/Assessment Pt would benefit from skilled OT to increase his independence in basic elf care to allo whim to safely return to his home and to decrease caregiver burden. Discharge Recommendations Plan/Recommendations: Continue POC Treatment Plan/Plan of Care Patient would benefit from OT for education, treatment and training to promote independence in ADL's, mobility, safety and/or upper extremity function for ADL' s. Plan of Care: ADL Retraining, Functional Mobility, Group Exercise/Act as Ind ( education, exercise, activity tolerance, functional mobility, funct activities) , UE Funct Exercise/Act, UE Neuromus Re-Ed/Coord Treatment Duration: Jun 24, 2017 Frequency: Twice Daily (5-6 days a week) Estimated Hrs Per Day: 1.5 hours per day Agreement: Yes Rehab Potential: Good Time/GCodes Start Time: 07:00 Stop Time: 08:30 Total Time Billed (hr/min): 90 Billed Treatment Time 1 visit-ADL 4 (60 min) FA 2 (30 min) VIELKA PERES Jun 13, 2017 08:46
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
[2017-06-13 17:24] VITALS: BP 134/85
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
[2017-06-14] MEDS: BACLOFEN 10 MG (LIORESAL) TAB PO PRN ×2 (02:22→20:34)
[2017-06-14] MEDS: oxyCODONE/APAP 10/325MG (PERCOCET 10) TABLET PO PRN ×3 (04:40→18:19)
[2017-06-14 05:08] VITALS: BP 130/75
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
[2017-06-14] MEDS: CARVEDILOL 3.125 MG (COREG) TABLET PO SCH ×2 (08:16→20:34)
[2017-06-14] MEDS: FAMOTIDINE 20 MG (PEPCID) TABLET PO SCH ×2 (08:16→20:34)
[2017-06-14] MEDS: amLODIPine 5 MG (NORVASC) TAB PO SCH (08:16)
[2017-06-14] MEDS: oxyCODONE ER 20 MG (OxyCONTIN CR) TAB PO SCH ×2 (08:16→20:34)
[2017-06-14] MEDS: lisINopril 10 MG (PRINIVIL) TAB PO SCH (08:16)
--- NOTE | 2017-06-14 09:04 | Physical Therapy Daily Note ---
PT Daily Note-Current Subjective Pt. c/o pain in ribs this date front and back, "not shoulder really" and states he feels completely safe to be up and down in his room ad venkatesh, really wants to go home and has his mind on his life and relationships and his [place]oco with cancer "as soon as I can get this over with" Pain Numeric Pain Scale: 6 Location: Right Location Body Site: Chest (ribs) Pain Description: Stabbing Appearance facial appearance FLACC 6 Mental Status Patient Orientation: Normal For Age Attachments: Other-See Comments (sling) Transfers Functional [place] Measure 0=Not Assessed/NA 4=Minimal Assistance 1=Total Assistance 5=Supervision or Setup 2=Maximal Assistance 6=Modified [place] 3=Moderate Assistance 7=Complete IndependenceIRFPAI Quality Coding Scale 6 Independent with activity with or without an assistive device 5 Patient requires set up or clean up by helper. Patient completes activity by themselves 4 Supervision or touching assist (CGA). [place] provide cues , steadying assist 3 The helper provides less than half the effort to complete the activity 2 The helper provides more than half the effort to complete the activity 1 Dependent. The helper does all the effort to complete an activity 7 Patient refused to complete or attempt activity 9 The patient did not perform the activity before the current illness or injury 88 Not attempted due to Medical conditions or safety concerns Transfers (B, C, W/C) (FIM): 6 Scootin Rollin Roll Left to Right (QC): 6 Supine to/from Sit: 6 Sit to/from Stand: 6 Sit to Lying (QC): 6 Sit to Stand (QC): 6 Chair/Lkp-yz-Vfrxa Xfer(QC): 6 Bed to/from Chair: 6 Weight Bearing Weight Bearing Restriction: Weight Bearing/Tolerated Gait Training Does the Patient Walk?: Yes Gait (FIM): 6 Distance (FIM): 3=150 ft (250x2) Walk 10 feet (QC): 6 Walk 50 ft with 2 Turns(QC): 6 Walk 150 ft (QC): 6 Walking 10ft/uneven surface-QC: 6 Gait Level of Assist: 6 Gait Persons Needed: 0 Gait Assistive Device: None slow, lateral displace "waddle" Stair Training Stair Training: Handrails/: 1 handrail Stairs (FIM): 6 #of Steps: 12 1 Step (curb) (QC): 6 4 Steps (QC): 6 12 Steps (QC): 6 Stairs: Pattern: Reciprocal Level of Assist: 6 Exercises Supine Ex: Ankle pumps, Quad Set, Glut sets, Heel Slides, Short Arc Quads, Scooting, Straight leg raise, Hip abd/add Supine Reps: 15 phase 1 right shoulder program begun per Dr Albarado, pendulum, PROM, ext rot, all slow x 10 x2, followed by ice post and ant Assessment Current Status: Good Progress up ad venkatesh about unit and room PT Short Term Goals Short Term Goals Time Frame: Jun 07, 2017 Transfers (B,C,W/C) (FIM): 4 Gait (FIM): 2 Gait Distance Comment: 50' Gait Level of Assist: 4 Gait Assistive Device: Cane Large Base Quad Wheelchair Distance: 150'x2 PT Care Home Goals Care Home Goals PT Agriculture Sales Account Manager Goals Time Frame: Jun 21, 2017 Transfers (B,C,W/C) (FIM): 5 Sit to Lying (QC): 4 Lying-Sitting on Side/Bed(QC): 4 Sit to Stand (QC): 4 Rollin Roll Left to Right (QC): 4 Chair/Ple-il-Oxxsq Xfer(QC): 4 Car Transfer (QC): 4 Gait (FIM): 5 Distance: 150' Walk 10 feet (QC): 4 Walk 10ft-Uneven Surface(QC): 4 Walk 50ft with 2 Turns (QC): 4 Walk 150 ft (QC): 4 Gait Level of Assist: 5 Gait Assistive Device: FWW Stairs (FIM): 2 # of Steps: 4 1 Step (curb) (QC): 4 4 Steps (QC): 4 Stairs Level Of Assist: 4 PT Plan Treatment/Plan Treatment Plan: Continue Plan of Care Treatment Plan: Bed Mobility, Education, Functional Activity Christopher, Functional Strength, Group Therapy, Gait, Safety, Therapeutic Exercise, Transfers Treatment Duration: Jun 21, 2017 Frequency: At least 5-7 days/Wk (IRF) Estimated Hrs Per Day: 1.5 hours per day Patient and/or Family Agrees t: Yes Safety Risks/Education Patient Education: Gait Training, Steps, Correct Positioning, Disease Process, Safety Issues Teaching Recipient: Patient Teaching Methods: Demonstration, Discussion Response to Teaching: Verbalize Understanding, Return Demonstration, Reinforcement Needed (RE: phase one shoulder program) Time/GCodes Time In: 800 Time Out: 900 Total Billed Treatment Time: 60 Total Billed Treatment 1,EX30m,FA15m,GT15m G Codes Necessary: NADIR Dc OUTREACH LIAISON Jun 14, 2017 09:04
--- NOTE | 2017-06-14 10:12 | PM & R (SOAP) Progress Note ---
Subjective Time Seen by Provider: 07:55 Subjective/Events-last exam Patient was seen in his room this AM Patient Modified Independent for transfers Patients brother who lives with him in [facility] in to visist with patient Patient has some concerns re discharge Informed him that SW will followup with him re these. Objective Exam Last Set of Vital Signs Vital Signs Date Time Temp Pulse Resp B/P (MAP) Pulse Ox O2 Delivery O2 Flow Rate FiO2 06/14/17 09:56 Room Air 06/14/17 05:08 98.1 96 18 130/75 95 Capillary Refill : Less Than 3 Seconds I&O Intake and Output 06/14/17 00:00 Intake Total 2740 ml Balance 2740 ml Intake Oral 2740 ml # Voids 7 # Bowel Movements 1 General: Alert, Oriented X3, Cooperative, No Acute Distress HEENT: Atraumatic, PERRLA, EOMI, Mucous Memb Moist/[place] Neck: Supple, No JVD Lungs: Clear to Auscultation Heart: Regular Rate Abdomen: Normal Bowel Sounds, Soft, No Tenderness, Other (Midline surgical scar healing well) Extremities: Other (edema rt hand) Neuro: Other (strength diminished both LES due to pain guarding at least in part) Assessment/Plan Assessment S/P Tspine unstable frx and rt Humerus frx s/p Arthrodesis t spine Neurosurgery OSH and ORIF rt humeral frx OSH Ortho S/P colon resection for CA DR Pittman S/P central port placement RT Anterior chest-now functioning HTN meds adjusted due to downward trend in Blood pressure Postop anemia Plan Continue PT/OT Pain Management. F/U with DR Pittman re Central port-done Rechecked Labs-done Blood pressure meds adjusted See orders. D/C Lovenox Trend H and H Orthopedist has given orders re rt shoulder restrictions IAdjust pain meds for breakthrough pain -see orders-done and improved Next Team Conference tomorrow 06/15/17 F/U with SW re patients concerns re discharge to home with brother and C possibly by end of week Pain control adequate at this time J CARLOS ARANDA MD Jun 14, 2017 10:12
[2017-06-14] MEDS ORDERED: LISI10TA2 PO (10:41)
[2017-06-14] MEDS ORDERED: OXC20TCR PO (10:41)
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
[2017-06-14] MEDS: IBUPROFEN 600 MG (MOTRIN) TAB PO PRN (15:04)
--- NOTE | 2017-06-14 15:09 | Physical Therapy Daily Note ---
PT Daily Note-Current Subjective Patient agrees to PT. Pain Numeric Pain Scale: 5-Moderate Pain Location: Soft Tissue Location Body Site: Generalized Pain Description: Ache Mental Status Patient Orientation: Normal For Age Transfers Functional [place] Measure 0=Not Assessed/NA 4=Minimal Assistance 1=Total Assistance 5=Supervision or Setup 2=Maximal Assistance 6=Modified [place] 3=Moderate Assistance 7=Complete IndependenceIRFPAI Quality Coding Scale 6 Independent with activity with or without an assistive device 5 Patient requires set up or clean up by helper. Patient completes activity by themselves 4 Supervision or touching assist (CGA). [place] provide cues , steadying assist 3 The helper provides less than half the effort to complete the activity 2 The helper provides more than half the effort to complete the activity 1 Dependent. The helper does all the effort to complete an activity 7 Patient refused to complete or attempt activity 9 The patient did not perform the activity before the current illness or injury 88 Not attempted due to Medical conditions or safety concerns Transfers (B, C, W/C) (FIM): 6 Scootin Sit to/from Stand: 6 Sit to Stand (QC): 5 Gait Training Does the Patient Walk?: Yes Gait (FIM): 7 Distance (FIM): 3=150 ft Distance: 300' x 4 Walk 10 feet (QC): 6 Walk 50 ft with 2 Turns(QC): 6 Walk 150 ft (QC): 6 Walking 10ft/uneven surface-QC: 6 Gait Level of Assist: 7 Gait Assistive Device: None safe and functional Assessment Current Status: Excellent Progress Patient will dismiss to home tomorrow with family support. PT Short Term Goals Short Term Goals Time Frame: Jun 07, 2017 Transfers (B,C,W/C) (FIM): 4 Gait (FIM): 2 Gait Distance Comment: 50' Gait Level of Assist: 4 Gait Assistive Device: Cane Large Base Quad Wheelchair Distance: 150'x2 PT Telephone Clerk Goals Telephone Clerk Goals PT Telephone Clerk Goals Time Frame: Jun 21, 2017 Transfers (B,C,W/C) (FIM): 5 Sit to Lying (QC): 4 Lying-Sitting on Side/Bed(QC): 4 Sit to Stand (QC): 4 Rollin Roll Left to Right (QC): 4 Chair/Cch-ds-Mvcjb Xfer(QC): 4 Car Transfer (QC): 4 Gait (FIM): 5 Distance: 150' Walk 10 feet (QC): 4 Walk 10ft-Uneven Surface(QC): 4 Walk 50ft with 2 Turns (QC): 4 Walk 150 ft (QC): 4 Gait Level of Assist: 5 Gait Assistive Device: FWW Stairs (FIM): 2 # of Steps: 4 1 Step (curb) (QC): 4 4 Steps (QC): 4 Stairs Level Of Assist: 4 PT Plan Treatment/Plan Treatment Plan: Continue Plan of Care Treatment Plan: Bed Mobility, Education, Functional Activity Christopher, Functional Strength, Group Therapy, Gait, Safety, Therapeutic Exercise, Transfers Treatment Duration: Jun 21, 2017 Frequency: At least 5-7 days/Wk (IRF) Estimated Hrs Per Day: 1.5 hours per day Patient and/or Family Agrees t: Yes Time/GCodes Time In: 1435 Time Out: 1505 Total Billed Treatment Time: 30 Total Billed Treatment 1 visit FA x 2 30 min LARRY JASSO PT Jun 14, 2017 15:09
[2017-06-14 19:34] VITALS: BP 131/84
[2017-06-15] MEDS: oxyCODONE/APAP 10/325MG (PERCOCET 10) TABLET PO PRN ×2 (00:36→07:06)
[2017-06-15 06:26] VITALS: BP 117/70
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
--- NOTE | 2017-06-15 08:26 | Therapy Team Discharge Summary ---
Therapy Discharge Summary Discharge Recommendations Date of Discharge 06/15/17 Therapy D/C Recommendations: Home w/ Family Support Occupational Therapy Pt was seen for skilled OT to increase his independence in basic self care to allow him to safely return home and to decrease caregiver burden (he lives with his brother). On admission he needed setup for eating and grooming; minimum assistance for toilet transfers; moderate assistance for bathing and toileting; and maximum assistance for dressing. By discharge he had progressed to modified independent with eating, grooming and toileting and minimal assistance with bathing and dressing. He used sock aid, long handled sponge, dressing stick, shower bench, grab bars, hand held shower, taller toilet. Discharge to home with home health physical therapy and family support. See tx plan for goals met. DC OT. PT Beverage Inspection Machine Tender Goals Chcf Goals PT Chcf Goals Time Frame: Jun 21, 2017 Transfers (B,C,W/C) (FIM): 5 Roll Left to Right (QC): 4 Sit to Lying (QC): 4 Lying-Sitting on Side/Bed(QC): 4 Sit to Stand (QC): 4 Chair/Agw-tn-Ylmxb Xfer(QC): 4 Car Transfer (QC): 4 Gait (FIM): 5 Distance: 150' Walk 10 feet (QC): 4 Walk 10ft-Uneven Surface(QC): 4 Walk 50ft with 2 Turns (QC): 4 Walk 150 ft (QC): 4 Gait Level of Assist: 5 Gait Assistive Device: FWW Stairs (FIM): 2 # of Steps: 4 1 Step (curb) (QC): 4 4 Steps (QC): 4 Stairs Level Of Assist: 4 OT Chcf Goals Beverage Inspection Machine Tender Goals Time Frame: Jun 24, 2017 Eating (FIM): 6 (06/14/2017) Eating (QC): 6 (06/14/2017) Oral Hygiene (QC): 6 (06/14/2017) Grooming(FIM): 6 (06/14/2017) Bathing(FIM): 5 (not met) Shower/Bathe Self (QC): 5 (not met) Upper Body Dressing(FIM): 4 (06/14/2017) Upper Body Dressing (QC): 3 (06/14/2017) Lower Body Dressing(FIM): 5 (not met) Lower Body Dressing (QC): 5 (not met) On/Off Footwear (QC): 5 (not met) Toileting(FIM): 6 (06/14/2017) Toileting Hygiene (QC): 6 (06/14/2017) Toilet/Commode Transfer(FIM): 6 (06/14/2017) Toilet/Commode Transfer (QC): 6 (06/14/2017) Shower Transfer(FIM): 5 (06/14/2017) Additional Goals: 1-Demonstrate ADL Tasks, 2-Verbalize Understanding, 3- ImproveStrength/Christopher 1=Demonstrate adherence to instructed precautions during ADL tasks. 2=Patient will verbalize/demonstrate understanding of assistive devices/ modifications for ADL. 3=Patient will improve strength/tolerance for activity to enable patient to perform ADL's. YARA RICHMOND OT Jun 15, 2017 08:26
[2017-06-15] MEDS: FAMOTIDINE 20 MG (PEPCID) TABLET PO SCH (09:03)
[2017-06-15] MEDS: oxyCODONE ER 20 MG (OxyCONTIN CR) TAB PO SCH (09:03)
[2017-06-15] MEDS: lisINopril 10 MG (PRINIVIL) TAB PO SCH (09:03)
[2017-06-15] MEDS: amLODIPine 5 MG (NORVASC) TAB PO SCH (09:03)
[2017-06-15] MEDS: CARVEDILOL 3.125 MG (COREG) TABLET PO SCH (09:03)
--- NOTE | 2017-06-15 09:15 | Therapy Team Discharge Summary ---
Therapy Discharge Summary Discharge Recommendations Date of Discharge Therapy D/C Recommendations: Home w/ Family Support Physical Therapy Patient came to rehab with R humeral fx, rib fx, lumbar surgery. Upon evaluation patient performed bed mobility and supine to sit with max assist, sit to stand and stand pivot transfer with min assist, ambulated 10' with a quad cane with min assist, could propel a manual wheelchair 50' with min assist using his left arm and both legs, no stairs at that time. Patient has been performing bed mobility and transfer training, balance and endurance training, functional strengthening, stair training, gait training, and education. Patient has made good progress and has met all of his signal timer goals. Now, patient performs bed mobility and transfers with mod I, ambulates 250' without an assistive device with independence, and can go up and down 12 steps using 1 handrail with mod I. Patient is being discharged from this facility today and will be discharged from PT at this time. PT Retirement Goals Retirement Goals PT Glass Cutting Machine Feeder Goals Time Frame: Jun 21, 2017 Transfers (B,C,W/C) (FIM): 5 Roll Left to Right (QC): 4 Sit to Lying (QC): 4 Lying-Sitting on Side/Bed(QC): 4 Sit to Stand (QC): 4 Chair/Cif-mp-Jkggd Xfer(QC): 4 Car Transfer (QC): 4 Gait (FIM): 5 Distance: 150' Walk 10 feet (QC): 4 Walk 10ft-Uneven Surface(QC): 4 Walk 50ft with 2 Turns (QC): 4 Walk 150 ft (QC): 4 Gait Level of Assist: 5 Gait Assistive Device: FWW Stairs (FIM): 2 # of Steps: 4 1 Step (curb) (QC): 4 4 Steps (QC): 4 Stairs Level Of Assist: 4 OT Glass Cutting Machine Feeder Goals Glass Cutting Machine Feeder Goals Time Frame: Jun 24, 2017 Eating (FIM): 6 (06/14/2017) Eating (QC): 6 (06/14/2017) Oral Hygiene (QC): 6 (06/14/2017) Grooming(FIM): 6 (06/14/2017) Bathing(FIM): 5 (not met) Shower/Bathe Self (QC): 5 (not met) Upper Body Dressing(FIM): 4 (06/14/2017) Upper Body Dressing (QC): 3 (06/14/2017) Lower Body Dressing(FIM): 5 (not met) Lower Body Dressing (QC): 5 (not met) On/Off Footwear (QC): 5 (not met) Toileting(FIM): 6 (06/14/2017) Toileting Hygiene (QC): 6 (06/14/2017) Toilet/Commode Transfer(FIM): 6 (06/14/2017) Toilet/Commode Transfer (QC): 6 (06/14/2017) Shower Transfer(FIM): 5 (06/14/2017) Additional Goals: 1-Demonstrate ADL Tasks, 2-Verbalize Understanding, 3- ImproveStrength/Christopher 1=Demonstrate adherence to instructed precautions during ADL tasks. 2=Patient will verbalize/demonstrate understanding of assistive devices/ modifications for ADL. 3=Patient will improve strength/tolerance for activity to enable patient to perform ADL's. RICO PENA PT Jun 15, 2017 09:15
[2017-06-15 09:45] VITALS: BP 117/70
== END 2017-06-15 18:20 | disposition home health service (06) | DRG 560 ==
LOC: ENPENDDIS 06-15 12:00
PROVIDERS: ADMIT Physical Medicine & Rehabilitation; ATTEND Physical Medicine & Rehabilitation
DX: S22.078D Other fracture of T9-T10 vertebra, subsequent encounter for fracture with routine healing (principal); S22.088D Other fracture of T11-T12 vertebra, subsequent encounter for fracture with routine healing; S32.509D Unspecified fracture of unspecified pubis, subsequent encounter for fracture with routine healing; S42.201D Unspecified fracture of upper end of right humerus, subsequent encounter for fracture with routine healing; S42.301D Unspecified fracture of shaft of humerus, right arm, subsequent encounter for fracture with routine healing; S22.41XD Multiple fractures of ribs, right side, subsequent encounter for fracture with routine healing; C77.2 Secondary and unspecified malignant neoplasm of intra-abdominal lymph nodes; I10 Essential (primary) hypertension; F41.9 Anxiety disorder, unspecified; G47.00 Insomnia, unspecified; M54.9 Dorsalgia, unspecified; E66.9 Obesity, unspecified; D64.9 Anemia, unspecified; Z85.038 Personal history of other malignant neoplasm of large intestine; Z68.39 Body mass index [BMI] 39.0-39.9, adult; Z87.891 Personal history of nicotine dependence; V89.0XXD Person injured in unspecified motor-vehicle accident, nontraffic, subsequent encounter
CPT/HCPCS: 36415; 71020; 80048; 80053; 82962; 85007; 85025; 85027

== ENCOUNTER 2017-08-04 11:29 | Outpatient (RCR) | payer OTHER, MEDICARE ==
[~2017-08-04 11:29] MED LIST changes: +AMLO10TA2 PO; +BACL10TA PO; +BISA10SU6 RC; +CARV3.122 PO; +DOCU-143 PO; +FAMO-119 PO; +LEVO500T2 PO; +LISI-552 PO; +LISI10TA2 PO; +OXC20TCR PO; +VITAMIN B17 PO
== END 2017-08-06 | disposition home or self-care (01) ==
PROVIDERS: ATTEND Orthopaedic Surgery
DX: S42.201D Unspecified fracture of upper end of right humerus, subsequent encounter for fracture with routine healing (principal); S42.301D Unspecified fracture of shaft of humerus, right arm, subsequent encounter for fracture with routine healing; V89.0XXD Person injured in unspecified motor-vehicle accident, nontraffic, subsequent encounter; Y92.410 Unspecified street and highway as the place of occurrence of the external cause; Y99.8 Other external cause status

== ENCOUNTER → 2017-08-09 | Outpatient (CLI) | payer MEDICARE, OTHER | LOC: RAD 07:45 | PROVIDERS: ATTEND Internal Medicine Hematology & Oncology | DX: C18.9 Malignant neoplasm of colon, unspecified (principal); K76.9 Liver disease, unspecified; K08.9 Disorder of teeth and supporting structures, unspecified; Z90.49 Acquired absence of other specified parts of digestive tract ==

== ENCOUNTER 2017-08-25 06:00 | Outpatient (CLI) | payer OTHER, MEDICARE ==
[~2017-08-25] VITALS: Ht 165.1 cm; Wt 107.1 kg
[2017-08-25] MEDS ORDERED: FURO20TA4 PO (14:40)
== END 2017-08-25 14:48 ==
LOC: PREOP 06:00
PROVIDERS: ATTEND Surgery
DX: Z01.818 Encounter for other preprocedural examination (principal); Z85.038 Personal history of other malignant neoplasm of large intestine; R93.3 Abnormal findings on diagnostic imaging of other parts of digestive tract

== ENCOUNTER 2017-08-29 11:51 | Day surgery (SDC) | payer MEDICARE, OTHER ==
[~2017-08-29] VITALS: Ht 165.1 cm; Wt 107.1 kg
[~2017-08-29 11:51] MED LIST changes: +FURO20TA4 PO
[2017-08-29] MEDS: NS IV 500 ML 500 ML IV PRN ×2 (12:00→15:00)
[2017-08-29 12:05] VITALS: BP 134/84
[2017-08-29] MEDS ORDERED: NS IV 500 ML 500 ML ONE ×2 (12:20→14:44)
--- NOTE | 2017-08-29 14:19 | Conscious Sedation/ASA ---
Conscious Sedation Pre-Proced Time Reviewed: 14:19 ASA Class: 2 Airway Mallampati Classification: (torres martinez appropriate class) I. II. III, IV Lungs Heart ASA score ASA 1: a normal healthy patient ASA 2: a patient with a mild systemic disease (mid diabetes, controlled hypertension, obesity ASA 3: a patient with a severe systemic disease that limits activity (angina , COPD, prior Myocardial infarction) ASA 4: a patient with an incapacitating disease that is a constant threat to life (CHF, renal failure) ASA 5: a moribund patient not expected to survive 24 hrs. (ruptured aneurysm) ASA 6: a declared brain patient whose organs are being harvested. For emergent operations, add the letter E after the classification Grade 2 Sedation Plan: Discussed options with patient/fam Note The patient is an appropriate candidate to undergo the planned procedure, sedation, and anesthesia. The patient immediately re-assessed prior to indication. ASHA SALGADO MD Aug 29, 2017 2:19 pm
[2017-08-29] MEDS ORDERED: fentaNYL INJECTION 100 MCG/2 ML AMP ONE (14:41)
[2017-08-29] MEDS ORDERED: MIDAZOLAM 2 MG/2 ML (VERSED) VIAL ONE ×4 (14:42→15:08)
[2017-08-29] MEDS: fentaNYL INJECTION 100 MCG/2 ML AMP IVP PRN ×2 (14:51→14:57)
[2017-08-29] MEDS: MIDAZOLAM 2 MG/2 ML (VERSED) VIAL IVP PRN ×4 (14:52→15:16)
--- NOTE | 2017-08-29 15:38 | Endo Procedure Record ---
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 He has just been found to have liver metastasis and an area of hyperactivity along the sigmoid colon on a PET scan. Therefore, he came in for an endoscopic assessment. Informed consent was obtained after reviewing the procedure in detail. Description of the procedure:he was placed in left lateral decubitus position and his vital signs were monitored. Conscious sedation was achieved using Versed and fentanyl. Digital rectal examination was unremarkable. The colonoscope was then introduced in the rectum and advanced to the ileo-colic anastomosis. The quality bowel preparation was rather suboptimal. The scope was then withdrawn slowly and the mucosa examined in a systematic fashion. Findings: A polypoid lesion about 18 mm in diameter at the proximal sigmoid colon. About 80 percent of this lesion was snared and retrieved using a Martinez net device. He tolerated the procedure well and was taken back to the nursing area in a stable condition Impression: Previous carcinoma of he competed polypoidal lesion at the sigmoid colon. Histology pending. Copies To: MONIE PEREZ MD Copies To: SAMIR VARGAS XAVIER M MD Aug 29, 2017 3:38 pm
--- NOTE | 2017-08-29 15:40 | Discharge Inst-Simple/Standard ---
Discharge Inst-Standard Discharge Medications New, Converted or Re-Newed RX: Other Patient Instructions/Follow Up Plan of Care/Instructions/FU: f/u with me on at 11:30 Activity as Tolerated: Yes Discharge Diet: No Restrictions ASHA SALGADO MD Aug 29, 2017 3:40 pm
[2017-08-29 15:45] VITALS: BP 137/92
[2017-08-29 16:15] VITALS: BP 142/90
[2017-08-29 16:30] VITALS: BP 142/90
== END 2017-08-29 16:30 | disposition home or self-care (01) ==
LOC: ENDO 11:51
PROVIDERS: ATTEND Surgery
DX: D12.5 Benign neoplasm of sigmoid colon (principal); C18.0 Malignant neoplasm of cecum; C78.7 Secondary malignant neoplasm of liver and intrahepatic bile duct
CPT/HCPCS: 88305

== ENCOUNTER 2017-09-16 10:00 | Outpatient (RCR) | payer OTHER, MEDICARE | END 2017-09-16 13:19 | disposition home or self-care (01) | PROVIDERS: ATTEND Orthopaedic Surgery | DX: S42.201D Unspecified fracture of upper end of right humerus, subsequent encounter for fracture with routine healing (principal); S42.301D Unspecified fracture of shaft of humerus, right arm, subsequent encounter for fracture with routine healing; V89.0XXD Person injured in unspecified motor-vehicle accident, nontraffic, subsequent encounter ==

== ENCOUNTER 2017-09-28 11:40 | Outpatient (RCR) | payer MEDICARE, OTHER ==
[2017-08-16 11:20] LABS: BASOPHILS % (AUTO) 1 % (0-10); EOSINOPHILS # (AUTO) 0.3 10^3/uL (0.0-0.3); EOSINOPHILS % (AUTO) 5 % (0-10); LYMPHOCYTES # (AUTO) 3.3 X 10^3 (1.0-4.0); LYMPHOCYTES % (AUTO) 46 % (12-44); MEAN CORPUSCULAR HEMOGLOBIN 26 PG (25-34); MEAN CORPUSCULAR HGB CONC 31 G/DL (32-36); MEAN CORPUSCULAR VOLUME 81 FL (80-99); MEAN PLATELET VOLUME 9.5 FL (7.4-10.4); MONOCYTES # (AUTO) 0.6 X 10^3 (0.0-1.0); MONOCYTES % (AUTO) 8 % (0-12); NEUTROPHILS # (AUTO) 2.9 X 10^3 (1.8-7.8); NEUTROPHILS % (AUTO) 41 % (42-75); PLATELET COUNT 307 10^3/uL (130-400); RED BLOOD COUNT 4.78 10^6/uL (4.35-5.85); RED CELL DISTRIBUTION WIDTH 16.5 % (10.0-14.5); WHITE BLOOD COUNT 7.1 10^3/uL (4.3-11.0)
[2017-08-16 11:42] LABS: ALANINE AMINOTRANSFERASE 16 U/L (0-55); ANION GAP 6 MMOL/L (5-14); ASPARTATE AMINO TRANSFERASE 14 U/L (5-34); BILIRUBIN,TOTAL 0.2 MG/DL (0.1-1.0); BLOOD UREA NITROGEN 13 MG/DL (7-18); BUN/CREATININE RATIO 16; CALCIUM 9.2 MG/DL (8.5-10.1); CARBON DIOXIDE 28 MMOL/L (21-32); CHLORIDE 105 MMOL/L (98-107); CREATININE SERUM 0.83 MG/DL (0.60-1.30); GFR ESTIMATED > 60; GLUCOSE 108 MG/DL (70-105); MAGNESIUM 1.9 MG/DL (1.8-2.4); POTASSIUM 4.3 MMOL/L (3.6-5.0); SODIUM 139 MMOL/L (135-145); TOTAL PROTEIN 7.4 GM/DL (6.4-8.2)
[2017-09-07 09:58] LABS: BASOPHILS % (AUTO) 1 % (0-10); EOSINOPHILS # (AUTO) 0.2 10^3/uL (0.0-0.3); EOSINOPHILS % (AUTO) 3 % (0-10); LYMPHOCYTES # (AUTO) 2.3 X 10^3 (1.0-4.0); LYMPHOCYTES % (AUTO) 37 % (12-44); MEAN CORPUSCULAR HEMOGLOBIN 25 PG (25-34); MEAN CORPUSCULAR HGB CONC 32 G/DL (32-36); MEAN CORPUSCULAR VOLUME 79 FL (80-99); MEAN PLATELET VOLUME 10.1 FL (7.4-10.4); MONOCYTES # (AUTO) 0.5 X 10^3 (0.0-1.0); MONOCYTES % (AUTO) 8 % (0-12); NEUTROPHILS # (AUTO) 3.3 X 10^3 (1.8-7.8); NEUTROPHILS % (AUTO) 52 % (42-75); PLATELET COUNT 263 10^3/uL (130-400); RED BLOOD COUNT 5.01 10^6/uL (4.35-5.85); RED CELL DISTRIBUTION WIDTH 18.2 % (10.0-14.5); WHITE BLOOD COUNT 6.3 10^3/uL (4.3-11.0)
[2017-09-07 10:15] LABS: ALANINE AMINOTRANSFERASE 18 U/L (0-55); ALBUMIN 3.9 GM/DL (3.2-4.5); ANION GAP 8 MMOL/L (5-14); ASPARTATE AMINO TRANSFERASE 18 U/L (5-34); BILIRUBIN,TOTAL 0.3 MG/DL (0.1-1.0); BLOOD UREA NITROGEN 12 MG/DL (7-18); BUN/CREATININE RATIO 15; CALCIUM 9.3 MG/DL (8.5-10.1); CARBON DIOXIDE 26 MMOL/L (21-32); CHLORIDE 106 MMOL/L (98-107); CREATININE SERUM 0.82 MG/DL (0.60-1.30); GFR ESTIMATED > 60; GLUCOSE 105 MG/DL (70-105); POTASSIUM 4.4 MMOL/L (3.6-5.0); SODIUM 140 MMOL/L (135-145); TOTAL PROTEIN 6.9 GM/DL (6.4-8.2)
[2017-09-15 13:55] LABS: BASOPHILS % (AUTO) 1 % (0-10); EOSINOPHILS # (AUTO) 0.4 10^3/uL (0.0-0.3); EOSINOPHILS % (AUTO) 6 % (0-10); LYMPHOCYTES # (AUTO) 2.1 X 10^3 (1.0-4.0); LYMPHOCYTES % (AUTO) 31 % (12-44); MEAN CORPUSCULAR HEMOGLOBIN 25 PG (25-34); MEAN CORPUSCULAR HGB CONC 32 G/DL (32-36); MEAN CORPUSCULAR VOLUME 79 FL (80-99); MEAN PLATELET VOLUME 9.7 FL (7.4-10.4); MONOCYTES # (AUTO) 0.6 X 10^3 (0.0-1.0); MONOCYTES % (AUTO) 8 % (0-12); NEUTROPHILS # (AUTO) 3.7 X 10^3 (1.8-7.8); NEUTROPHILS % (AUTO) 54 % (42-75); PLATELET COUNT 256 10^3/uL (130-400); RED BLOOD COUNT 5.04 10^6/uL (4.35-5.85); RED CELL DISTRIBUTION WIDTH 18.3 % (10.0-14.5); WHITE BLOOD COUNT 6.8 10^3/uL (4.3-11.0)
[2017-09-15 14:13] LABS: ANION GAP 7 MMOL/L (5-14); BLOOD UREA NITROGEN 18 MG/DL (7-18); BUN/CREATININE RATIO 21; CALCIUM 9.2 MG/DL (8.5-10.1); CARBON DIOXIDE 26 MMOL/L (21-32); CHLORIDE 103 MMOL/L (98-107); CREATININE SERUM 0.84 MG/DL (0.60-1.30); GFR ESTIMATED > 60; GLUCOSE 113 MG/DL (70-105); POTASSIUM 4.1 MMOL/L (3.6-5.0); SODIUM 136 MMOL/L (135-145)
[2017-09-21 09:43] LABS: BASOPHILS % (AUTO) 1 % (0-10); EOSINOPHILS # (AUTO) 0.2 10^3/uL (0.0-0.3); EOSINOPHILS % (AUTO) 3 % (0-10); LYMPHOCYTES # (AUTO) 2.2 X 10^3 (1.0-4.0); LYMPHOCYTES % (AUTO) 30 % (12-44); MEAN CORPUSCULAR HEMOGLOBIN 26 PG (25-34); MEAN CORPUSCULAR HGB CONC 32 G/DL (32-36); MEAN CORPUSCULAR VOLUME 80 FL (80-99); MEAN PLATELET VOLUME 9.7 FL (7.4-10.4); MONOCYTES % (AUTO) 13 % (0-12); NEUTROPHILS # (AUTO) 4.1 X 10^3 (1.8-7.8); NEUTROPHILS % (AUTO) 54 % (42-75); PLATELET COUNT 199 10^3/uL (130-400); RED BLOOD COUNT 4.58 10^6/uL (4.35-5.85); WHITE BLOOD COUNT 7.6 10^3/uL (4.3-11.0)
[2017-09-21 10:00] LABS: ALANINE AMINOTRANSFERASE 21 U/L (0-55); ALBUMIN 4.1 GM/DL (3.2-4.5); ANION GAP 9 MMOL/L (5-14); ASPARTATE AMINO TRANSFERASE 20 U/L (5-34); BILIRUBIN,TOTAL 0.4 MG/DL (0.1-1.0); BLOOD UREA NITROGEN 16 MG/DL (7-18); BUN/CREATININE RATIO 16; CARBON DIOXIDE 25 MMOL/L (21-32); CHLORIDE 101 MMOL/L (98-107); CREATININE SERUM 0.99 MG/DL (0.60-1.30); GFR ESTIMATED > 60; GLUCOSE 97 MG/DL (70-105); POTASSIUM 4.3 MMOL/L (3.6-5.0); SODIUM 135 MMOL/L (135-145); TOTAL PROTEIN 6.7 GM/DL (6.4-8.2)
[~2017-09-28] VITALS: Ht 165.1 cm; Wt 109.3 kg
[~2017-09-28 11:40] MED LIST changes: +D5W 500 ML IV (CANCER CTR) 500 ML IV SCH; +FLUOROURACIL 0.8 GM in SYRINGE-IVPB 1 SYRINGE IV SCH; +FLUOROURACIL 4,600 MG in NS (IVPB) CANCER CENTER 55.2 ML IV SCH; +FOSAPREPITANT DIMEGLUMINE 150 MG in NS (IVPB) CANCER CENTER ONLY 150 ML IV SCH; +HYDROcodone/APAP 10 MG/325 MG (LORTAB) TAB PO ONE; +LEUCOVORIN CALCIUM 700 MG, LEUCOVORIN CALCIUM 100 MG in D5W 250 ML IVPB (CANCER CTR) 25... IV SCH; +OXALIPLATIN 160 MG in D5W 250 ML IVPB (CANCER CTR) 250 ML IV SCH; +PALONOSETRON 0.25 MG, DEXAMETHASONE 10 MG/NS 50 ML IVPB IV PRN; +oxyCODONE/APAP 10/325MG (PERCOCET 10) TABLET PO ONE
[2017-09-28 12:00] LABS: BASOPHILS # (AUTO) 0.1 10^3/uL (0.0-0.1); BASOPHILS % (AUTO) 1 % (0-10); EOSINOPHILS # (AUTO) 0.6 10^3/uL (0.0-0.3); EOSINOPHILS % (AUTO) 10 % (0-10); LYMPHOCYTES # (AUTO) 2.9 X 10^3 (1.0-4.0); LYMPHOCYTES % (AUTO) 51 % (12-44); MEAN CORPUSCULAR HEMOGLOBIN 26 PG (25-34); MEAN CORPUSCULAR HGB CONC 32 G/DL (32-36); MEAN CORPUSCULAR VOLUME 80 FL (80-99); MEAN PLATELET VOLUME 9.5 FL (7.4-10.4); MONOCYTES # (AUTO) 0.7 X 10^3 (0.0-1.0); MONOCYTES % (AUTO) 12 % (0-12); NEUTROPHILS # (AUTO) 1.6 X 10^3 (1.8-7.8); NEUTROPHILS % (AUTO) 27 % (42-75); PLATELET COUNT 232 10^3/uL (130-400); RED BLOOD COUNT 4.93 10^6/uL (4.35-5.85); RED CELL DISTRIBUTION WIDTH 19.4 % (10.0-14.5); WHITE BLOOD COUNT 5.8 10^3/uL (4.3-11.0)
[2017-09-28 12:17] LABS: ANION GAP 8 MMOL/L (5-14); BLOOD UREA NITROGEN 12 MG/DL (7-18); BUN/CREATININE RATIO 13; CALCIUM 9.1 MG/DL (8.5-10.1); CARBON DIOXIDE 27 MMOL/L (21-32); CHLORIDE 107 MMOL/L (98-107); CREATININE SERUM 0.95 MG/DL (0.60-1.30); GFR ESTIMATED > 60; GLUCOSE 110 MG/DL (70-105); POTASSIUM 4.6 MMOL/L (3.6-5.0); SODIUM 142 MMOL/L (135-145)
== END 2017-10-05 09:13 | disposition home or self-care (01) ==
LOC: ONC 11:40
PROVIDERS: ATTEND Internal Medicine Hematology & Oncology
DX: Z51.11 Encounter for antineoplastic chemotherapy (principal); C18.9 Malignant neoplasm of colon, unspecified; K76.9 Liver disease, unspecified; K08.9 Disorder of teeth and supporting structures, unspecified; Z90.49 Acquired absence of other specified parts of digestive tract
CPT/HCPCS: 36415; 36591; 80048; 80053; 81275; 82378; 83735; 85025; 88381; 96367; 96368; 96375; 96411; 96413; 96416; 99213

== ENCOUNTER 2017-10-12 14:48 | Outpatient (RCR) | payer MEDICARE, OTHER ==
[2017-10-05 09:40] LABS: BASOPHILS # (AUTO) 0.1 10^3/uL (0.0-0.1); BASOPHILS % (AUTO) 1 % (0-10); EOSINOPHILS # (AUTO) 0.4 10^3/uL (0.0-0.3); EOSINOPHILS % (AUTO) 6 % (0-10); LYMPHOCYTES # (AUTO) 3.3 X 10^3 (1.0-4.0); LYMPHOCYTES % (AUTO) 42 % (12-44); MEAN CORPUSCULAR HEMOGLOBIN 26 PG (25-34); MEAN CORPUSCULAR HGB CONC 32 G/DL (32-36); MEAN CORPUSCULAR VOLUME 80 FL (80-99); MEAN PLATELET VOLUME 10.4 FL (7.4-10.4); MONOCYTES # (AUTO) 0.9 X 10^3 (0.0-1.0); MONOCYTES % (AUTO) 12 % (0-12); NEUTROPHILS % (AUTO) 39 % (42-75); PLATELET COUNT 169 10^3/uL (130-400); RED BLOOD COUNT 5.01 10^6/uL (4.35-5.85); RED CELL DISTRIBUTION WIDTH 19.9 % (10.0-14.5); WHITE BLOOD COUNT 7.7 10^3/uL (4.3-11.0)
[2017-10-05 09:56] LABS: ALANINE AMINOTRANSFERASE 30 U/L (0-55); ANION GAP 7 MMOL/L (5-14); ASPARTATE AMINO TRANSFERASE 24 U/L (5-34); BILIRUBIN,TOTAL 0.3 MG/DL (0.1-1.0); BLOOD UREA NITROGEN 9 MG/DL (7-18); BUN/CREATININE RATIO 9; CALCIUM 9.1 MG/DL (8.5-10.1); CARBON DIOXIDE 28 MMOL/L (21-32); CHLORIDE 104 MMOL/L (98-107); CREATININE SERUM 0.96 MG/DL (0.60-1.30); GFR ESTIMATED > 60; GLUCOSE 111 MG/DL (70-105); POTASSIUM 4.3 MMOL/L (3.6-5.0); SODIUM 139 MMOL/L (135-145); TOTAL PROTEIN 6.8 GM/DL (6.4-8.2)
[~2017-10-12] VITALS: Ht 165.1 cm; Wt 109.8 kg
[~2017-10-12 14:48] MED LIST changes: +ALTEPLASE 2 MG (CATHFLO) CANCER CENTER IV ONE; -HYDROcodone/APAP 10 MG/325 MG (LORTAB) TAB PO ONE; +ONDANSETRON 8 MG, DEXAMETHASONE 4 MG/NS 50 ML IVPB (Cancer Ctr) IV ONE
[2017-10-12 15:07] LABS: BASOPHILS # (AUTO) 0.1 10^3/uL (0.0-0.1); BASOPHILS % (AUTO) 1 % (0-10); EOSINOPHILS # (AUTO) 0.4 10^3/uL (0.0-0.3); EOSINOPHILS % (AUTO) 5 % (0-10); LYMPHOCYTES % (AUTO) 38 % (12-44); MEAN CORPUSCULAR HEMOGLOBIN 26 PG (25-34); MEAN CORPUSCULAR HGB CONC 33 G/DL (32-36); MEAN CORPUSCULAR VOLUME 78 FL (80-99); MEAN PLATELET VOLUME 10.1 FL (7.4-10.4); MONOCYTES # (AUTO) 1.1 X 10^3 (0.0-1.0); MONOCYTES % (AUTO) 13 % (0-12); NEUTROPHILS # (AUTO) 3.3 X 10^3 (1.8-7.8); NEUTROPHILS % (AUTO) 42 % (42-75); PLATELET COUNT 242 10^3/uL (130-400); RED BLOOD COUNT 5.49 10^6/uL (4.35-5.85); RED CELL DISTRIBUTION WIDTH 20.5 % (10.0-14.5); WHITE BLOOD COUNT 7.8 10^3/uL (4.3-11.0)
[2017-10-12 15:21] LABS: ANION GAP 12 MMOL/L (5-14); BLOOD UREA NITROGEN 19 MG/DL (7-18); BUN/CREATININE RATIO 21; CALCIUM 9.7 MG/DL (8.5-10.1); CARBON DIOXIDE 22 MMOL/L (21-32); CHLORIDE 104 MMOL/L (98-107); CREATININE SERUM 0.89 MG/DL (0.60-1.30); GFR ESTIMATED > 60; GLUCOSE 107 MG/DL (70-105); POTASSIUM 4.2 MMOL/L (3.6-5.0); SODIUM 138 MMOL/L (135-145)
== END 2017-10-19 10:40 | disposition home or self-care (01) ==
LOC: ONC 14:48
PROVIDERS: ATTEND Internal Medicine Hematology & Oncology
DX: Z51.11 Encounter for antineoplastic chemotherapy (principal); C18.0 Malignant neoplasm of cecum; C78.7 Secondary malignant neoplasm of liver and intrahepatic bile duct
CPT/HCPCS: 36415; 36593; 80048; 80053; 83735; 85025; 96367; 96368; 96375; 96409; 96413

== ENCOUNTER 2017-11-09 11:21 | Outpatient (RCR) | payer MEDICARE, OTHER ==
[2017-10-19 09:39] LABS: BASOPHILS # (AUTO) 0.1 10^3/uL (0.0-0.1); BASOPHILS % (AUTO) 1 % (0-10); EOSINOPHILS # (AUTO) 0.5 10^3/uL (0.0-0.3); EOSINOPHILS % (AUTO) 6 % (0-10); HEMATOCRIT 39 % (40-54); HEMOGLOBIN 12.8 G/DL (13.3-17.7); LYMPHOCYTES # (AUTO) 3.1 X 10^3 (1.0-4.0); LYMPHOCYTES % (AUTO) 45 % (12-44); MEAN CORPUSCULAR HEMOGLOBIN 26 PG (25-34); MEAN CORPUSCULAR HGB CONC 33 G/DL (32-36); MEAN CORPUSCULAR VOLUME 79 FL (80-99); MONOCYTES % (AUTO) 14 % (0-12); NEUTROPHILS # (AUTO) 2.3 X 10^3 (1.8-7.8); NEUTROPHILS % (AUTO) 34 % (42-75); PLATELET COUNT 138 10^3/uL (130-400); RED BLOOD COUNT 4.94 10^6/uL (4.35-5.85); RED CELL DISTRIBUTION WIDTH 20.4 % (10.0-14.5)
[2017-10-19 10:01] LABS: ALANINE AMINOTRANSFERASE 32 U/L (0-55); ALBUMIN 3.8 GM/DL (3.2-4.5); ALKALINE PHOSPHATASE 92 U/L (40-136); BILIRUBIN,TOTAL 0.2 MG/DL (0.1-1.0); BUN/CREATININE RATIO 20; CALCIUM 9.2 MG/DL (8.5-10.1); CARBON DIOXIDE 26 MMOL/L (21-32); CHLORIDE 103 MMOL/L (98-107); GFR ESTIMATED > 60; GLUCOSE 104 MG/DL (70-105); MAGNESIUM 1.7 MG/DL (1.8-2.4); SODIUM 137 MMOL/L (135-145); TOTAL PROTEIN 6.9 GM/DL (6.4-8.2)
[2017-10-26 09:58] LABS: BASOPHILS # (AUTO) 0.1 10^3/uL (0.0-0.1); BASOPHILS % (AUTO) 1 % (0-10); EOSINOPHILS # (AUTO) 0.6 10^3/uL (0.0-0.3); EOSINOPHILS % (AUTO) 8 % (0-10); HEMATOCRIT 39 % (40-54); HEMOGLOBIN 12.7 G/DL (13.3-17.7); LYMPHOCYTES # (AUTO) 2.8 X 10^3 (1.0-4.0); LYMPHOCYTES % (AUTO) 39 % (12-44); MEAN CORPUSCULAR HEMOGLOBIN 26 PG (25-34); MEAN CORPUSCULAR HGB CONC 33 G/DL (32-36); MEAN CORPUSCULAR VOLUME 80 FL (80-99); MEAN PLATELET VOLUME 9.6 FL (7.4-10.4); MONOCYTES # (AUTO) 1.1 X 10^3 (0.0-1.0); MONOCYTES % (AUTO) 16 % (0-12); NEUTROPHILS # (AUTO) 2.6 X 10^3 (1.8-7.8); NEUTROPHILS % (AUTO) 37 % (42-75); PLATELET COUNT 179 10^3/uL (130-400); RED BLOOD COUNT 4.84 10^6/uL (4.35-5.85); RED CELL DISTRIBUTION WIDTH 20.9 % (10.0-14.5); WHITE BLOOD COUNT 7.2 10^3/uL (4.3-11.0)
[2017-10-26 10:15] LABS: BUN/CREATININE RATIO 16; CARBON DIOXIDE 28 MMOL/L (21-32); CHLORIDE 104 MMOL/L (98-107); CREATININE SERUM 0.92 MG/DL (0.60-1.30); GFR ESTIMATED > 60; GLUCOSE 92 MG/DL (70-105); POTASSIUM 4.6 MMOL/L (3.6-5.0); SODIUM 139 MMOL/L (135-145)
[2017-11-02 10:05] LABS: BASOPHILS # (AUTO) 0.1 10^3/uL (0.0-0.1); BASOPHILS % (AUTO) 1 % (0-10); EOSINOPHILS # (AUTO) 0.4 10^3/uL (0.0-0.3); EOSINOPHILS % (AUTO) 5 % (0-10); HEMATOCRIT 39 % (40-54); HEMOGLOBIN 12.9 G/DL (13.3-17.7); LYMPHOCYTES # (AUTO) 2.5 X 10^3 (1.0-4.0); LYMPHOCYTES % (AUTO) 33 % (12-44); MEAN CORPUSCULAR HEMOGLOBIN 27 PG (25-34); MEAN CORPUSCULAR HGB CONC 33 G/DL (32-36); MEAN CORPUSCULAR VOLUME 81 FL (80-99); MEAN PLATELET VOLUME 9.6 FL (7.4-10.4); MONOCYTES # (AUTO) 1.1 X 10^3 (0.0-1.0); MONOCYTES % (AUTO) 15 % (0-12); NEUTROPHILS # (AUTO) 3.6 X 10^3 (1.8-7.8); NEUTROPHILS % (AUTO) 47 % (42-75); PLATELET COUNT 210 10^3/uL (130-400); RED BLOOD COUNT 4.85 10^6/uL (4.35-5.85); RED CELL DISTRIBUTION WIDTH 22.1 % (10.0-14.5); WHITE BLOOD COUNT 7.6 10^3/uL (4.3-11.0)
[2017-11-02 10:18] LABS: ALANINE AMINOTRANSFERASE 25 U/L (0-55); ALKALINE PHOSPHATASE 93 U/L (40-136); BILIRUBIN,TOTAL 0.4 MG/DL (0.1-1.0); BUN/CREATININE RATIO 11; CALCIUM 9.2 MG/DL (8.5-10.1); CARBON DIOXIDE 23 MMOL/L (21-32); CHLORIDE 106 MMOL/L (98-107); CREATININE SERUM 0.93 MG/DL (0.60-1.30); GFR ESTIMATED > 60; GLUCOSE 106 MG/DL (70-105); MAGNESIUM 1.7 MG/DL (1.8-2.4); POTASSIUM 4.3 MMOL/L (3.6-5.0); SODIUM 139 MMOL/L (135-145)
[~2017-11-09] VITALS: Ht 165.1 cm; Wt 109.3 kg
[~2017-11-09 11:21] MED LIST changes: -ALTEPLASE 2 MG (CATHFLO) CANCER CENTER IV ONE; +BEVACIZUMAB IV SCH; +FLUOROURACIL 0.6 GM in SYRINGE-IVPB 1 SYRINGE IV SCH; +FLUOROURACIL IV SCH; +LEUCOVORIN CALCIUM 600 MG in D5W 250 ML IVPB (CANCER CTR) 250 ML IV SCH; +NS IV SCH; -ONDANSETRON 8 MG, DEXAMETHASONE 4 MG/NS 50 ML IVPB (Cancer Ctr) IV ONE; +ONDANSETRON 8 MG, DEXAMETHASONE 4 MG/NS 50 ML IVPB (Cancer Ctr) IV SCH; +ONDANSETRON MDV (CANCER CENTER 8 MG, DEXAMETHASONE INJ (CANCER CTR) 4 MG in D5W 50 ML I... IV SCH; +OXALIPLATIN 100 MG, OXALIPLATIN (GENERIC) 50 MG in D5W 250 ML IVPB (CANCER CTR) 250 ML IV SCH; +PALONOSETRON HCL 0.25 MG, DEXAMETHASONE PF INJ (CANCER C 10 MG in D5W 50 ML IV(CANCER C... IV PRN; +[UNRECOGNIZED DRUG - OTHER] IV SCH; -oxyCODONE/APAP 10/325MG (PERCOCET 10) TABLET PO ONE
[2017-11-09 11:52] LABS: BASOPHILS # (AUTO) 0.1 10^3/uL (0.0-0.1); BASOPHILS % (AUTO) 1 % (0-10); EOSINOPHILS # (AUTO) 0.4 10^3/uL (0.0-0.3); EOSINOPHILS % (AUTO) 5 % (0-10); HEMATOCRIT 41 % (40-54); HEMOGLOBIN 13.4 G/DL (13.3-17.7); LYMPHOCYTES # (AUTO) 3.2 X 10^3 (1.0-4.0); LYMPHOCYTES % (AUTO) 42 % (12-44); MEAN CORPUSCULAR HEMOGLOBIN 27 PG (25-34); MEAN CORPUSCULAR HGB CONC 33 G/DL (32-36); MEAN CORPUSCULAR VOLUME 82 FL (80-99); MEAN PLATELET VOLUME 9.8 FL (7.4-10.4); MONOCYTES # (AUTO) 1.1 X 10^3 (0.0-1.0); MONOCYTES % (AUTO) 14 % (0-12); NEUTROPHILS # (AUTO) 2.8 X 10^3 (1.8-7.8); NEUTROPHILS % (AUTO) 38 % (42-75); PLATELET COUNT 265 10^3/uL (130-400); RED BLOOD COUNT 4.99 10^6/uL (4.35-5.85); RED CELL DISTRIBUTION WIDTH 22.8 % (10.0-14.5); WHITE BLOOD COUNT 7.5 10^3/uL (4.3-11.0)
[2017-11-09 12:16] LABS: BUN/CREATININE RATIO 15; CARBON DIOXIDE 22 MMOL/L (21-32); CHLORIDE 104 MMOL/L (98-107); CREATININE SERUM 0.79 MG/DL (0.60-1.30); GFR ESTIMATED > 60; GLUCOSE 101 MG/DL (70-105); POTASSIUM 4.1 MMOL/L (3.6-5.0); SODIUM 137 MMOL/L (135-145)
[2017-11-15] MEDS ORDERED: PALONOSETRON HCL 0.25 MG, DEXAMETHASONE PF INJ (CANCER C 10 MG in NS (IVPB) CANCER CENT... IV PRN (15:30)
== END 2017-11-16 09:05 | disposition home or self-care (01) ==
LOC: ONC 11:21
PROVIDERS: ATTEND Internal Medicine Hematology & Oncology
DX: Z51.11 Encounter for antineoplastic chemotherapy (principal); C18.0 Malignant neoplasm of cecum; C78.7 Secondary malignant neoplasm of liver and intrahepatic bile duct
CPT/HCPCS: 36415; 36591; 80048; 80053; 83735; 85025; 96367; 96368; 96374; 96375; 96411; 96413

== ENCOUNTER 2017-11-29 10:30 | Outpatient (CLI) | payer MEDICARE ==
[~2017-11-29] VITALS: Ht 165.1 cm; Wt 107.0 kg
[~2017-11-29 10:30] MED LIST changes: -BEVACIZUMAB IV SCH; -D5W 500 ML IV (CANCER CTR) 500 ML IV SCH; -FLUOROURACIL 0.6 GM in SYRINGE-IVPB 1 SYRINGE IV SCH; -FLUOROURACIL 0.8 GM in SYRINGE-IVPB 1 SYRINGE IV SCH; -FLUOROURACIL 4,600 MG in NS (IVPB) CANCER CENTER 55.2 ML IV SCH; -FLUOROURACIL IV SCH; -FOSAPREPITANT DIMEGLUMINE 150 MG in NS (IVPB) CANCER CENTER ONLY 150 ML IV SCH; -LEUCOVORIN CALCIUM 600 MG in D5W 250 ML IVPB (CANCER CTR) 250 ML IV SCH; -LEUCOVORIN CALCIUM 700 MG, LEUCOVORIN CALCIUM 100 MG in D5W 250 ML IVPB (CANCER CTR) 25... IV SCH; -NS IV SCH; -ONDANSETRON 8 MG, DEXAMETHASONE 4 MG/NS 50 ML IVPB (Cancer Ctr) IV SCH; -ONDANSETRON MDV (CANCER CENTER 8 MG, DEXAMETHASONE INJ (CANCER CTR) 4 MG in D5W 50 ML I... IV SCH; -OXALIPLATIN 100 MG, OXALIPLATIN (GENERIC) 50 MG in D5W 250 ML IVPB (CANCER CTR) 250 ML IV SCH; -OXALIPLATIN 160 MG in D5W 250 ML IVPB (CANCER CTR) 250 ML IV SCH; -PALONOSETRON 0.25 MG, DEXAMETHASONE 10 MG/NS 50 ML IVPB IV PRN; -PALONOSETRON HCL 0.25 MG, DEXAMETHASONE PF INJ (CANCER C 10 MG in D5W 50 ML IV(CANCER C... IV PRN; -[UNRECOGNIZED DRUG - OTHER] IV SCH
== END 2017-11-29 11:28 ==
LOC: PREOP 10:30
PROVIDERS: ATTEND Surgery
DX: Z01.818 Encounter for other preprocedural examination (principal); K62.5 Hemorrhage of anus and rectum; D12.6 Benign neoplasm of colon, unspecified; C18.9 Malignant neoplasm of colon, unspecified; C79.9 Secondary malignant neoplasm of unspecified site

== ENCOUNTER → 2017-11-30 | Outpatient (CLI) | payer MEDICARE, OTHER ==
[~2017-11-30] MED LIST changes: +BARIUM SUSPENSION 2.1% (VANILLA SILQ) 450 ML PO ONE; +IOHEXOL 350 MG/ML 100 ML (OMNIPAQUE 350) VIAL IV ONE; +NS 100 ML (IVPB) BAG IV ONE
--- NOTE | 2017-11-30 09:41 | Diagnostic Imaging Report ---
PROCEDURE: CT chest with contrast, CT abdomen and pelvis with and without contrast. TECHNIQUE: Pre and post intravenous contrast axial imaging of the abdomen and pelvis and post contrast axial imaging of the chest were performed. INDICATION: Colon carcinoma with metastases. Comparison is made with prior CT abdomen and pelvis from 04/06/2017. CT chest: A right chest wall port has the tip at the SVC right atrial junction. No axillary lymphadenopathy is identified. No significant mediastinal or axillary lymphadenopathy is identified. No pericardial or pleural fluid is detected. No pulmonary infiltrates, nodules or masses are detected. There are multiple healed bilateral rib fractures. There are postop changes to the right shoulder. There is also lower thoracic spinal instrumentation present. IMPRESSION: Unremarkable CT of the chest. No thoracic lymphadenopathy or evidence of pulmonary metastatic disease is identified. CT abdomen and pelvis: There has been development of several rounded low density masses within the liver, suggestive of metastatic disease. Largest mass appears to be near the liver dome in the right lobe approximately 2.6 cm in diameter. A slightly smaller mass just anterior to this is seen. There is also a mass left lobe approximately 2.3 cm. Gallbladder is unremarkable. The pancreas and spleen are unremarkable. No adrenal mass is detected. Kidneys are unremarkable apart from a tiny cortical low density in the left kidney, too small to characterize but likely cysts. The aorta is nonaneurysmal. There is a filter within the inferior vena cava. Shotty lymph nodes in the central retroperitoneum appears similar to prior exam. A previously noted mass involving the cecum and a portion of the ascending colon has been surgically removed. The maria luisa mass medial to this in the right abdomen on prior exam is no longer visualized. The left iliac node appears to be slightly more prominent, short axis measurement of 11 mm. No right iliac nodes are seen. Bilateral inguinal lymph nodes appear stable. The bladder is unremarkable. IMPRESSION: 1. Postop changes to the abdomen with partial resection of the right colon. There has been development of several low density masses throughout the liver consistent with a developing hepatic metastatic disease. Shoddy central retroperitoneal lymphadenopathy is stable. There is mildly prominent left iliac lymph node, increased since prior exam and suspicious. Dictated by: Dictated on workstation # [id number]
== END ==
LOC: RAD 08:07
PROVIDERS: ATTEND Internal Medicine Hematology & Oncology
DX: C77.2 Secondary and unspecified malignant neoplasm of intra-abdominal lymph nodes (principal); C18.2 Malignant neoplasm of ascending colon; Z90.49 Acquired absence of other specified parts of digestive tract
CPT/HCPCS: 71260; 74178

== ENCOUNTER 2017-12-28 09:10 | Outpatient (RCR) | payer MEDICARE, OTHER ==
[2017-11-16 10:05] LABS: BASOPHILS # (AUTO) 0.1 10^3/uL (0.0-0.1); BASOPHILS % (AUTO) 1 % (0-10); EOSINOPHILS # (AUTO) 0.4 10^3/uL (0.0-0.3); EOSINOPHILS % (AUTO) 5 % (0-10); HEMATOCRIT 35 % (40-54); HEMOGLOBIN 11.2 G/DL (13.3-17.7); LYMPHOCYTES # (AUTO) 3.2 X 10^3 (1.0-4.0); LYMPHOCYTES % (AUTO) 40 % (12-44); MEAN CORPUSCULAR HEMOGLOBIN 27 PG (25-34); MEAN CORPUSCULAR HGB CONC 32 G/DL (32-36); MEAN CORPUSCULAR VOLUME 85 FL (80-99); MEAN PLATELET VOLUME 9.7 FL (7.4-10.4); MONOCYTES % (AUTO) 13 % (0-12); NEUTROPHILS # (AUTO) 3.3 X 10^3 (1.8-7.8); NEUTROPHILS % (AUTO) 41 % (42-75); PLATELET COUNT 246 10^3/uL (130-400); RED BLOOD COUNT 4.11 10^6/uL (4.35-5.85); RED CELL DISTRIBUTION WIDTH 21.7 % (10.0-14.5)
[2017-11-16 10:31] LABS: ALANINE AMINOTRANSFERASE 21 U/L (0-55); ALBUMIN 3.7 GM/DL (3.2-4.5); ALKALINE PHOSPHATASE 93 U/L (40-136); BILIRUBIN,TOTAL 0.3 MG/DL (0.1-1.0); BUN/CREATININE RATIO 6; CALCIUM 9.1 MG/DL (8.5-10.1); CARBON DIOXIDE 25 MMOL/L (21-32); CHLORIDE 104 MMOL/L (98-107); CREATININE SERUM 0.88 MG/DL (0.60-1.30); GFR ESTIMATED > 60; GLUCOSE 91 MG/DL (70-105); MAGNESIUM 1.9 MG/DL (1.8-2.4); POTASSIUM 4.4 MMOL/L (3.6-5.0); SODIUM 139 MMOL/L (135-145); TOTAL PROTEIN 6.7 GM/DL (6.4-8.2)
[2017-12-07 09:33] LABS: BASOPHILS # (AUTO) 0.1 10^3/uL (0.0-0.1); BASOPHILS % (AUTO) 1 % (0-10); EOSINOPHILS # (AUTO) 0.3 10^3/uL (0.0-0.3); EOSINOPHILS % (AUTO) 4 % (0-10); HEMATOCRIT 37 % (40-54); HEMOGLOBIN 11.9 G/DL (13.3-17.7); LYMPHOCYTES # (AUTO) 3.7 X 10^3 (1.0-4.0); LYMPHOCYTES % (AUTO) 47 % (12-44); MEAN CORPUSCULAR HEMOGLOBIN 27 PG (25-34); MEAN CORPUSCULAR HGB CONC 33 G/DL (32-36); MEAN CORPUSCULAR VOLUME 84 FL (80-99); MONOCYTES # (AUTO) 0.8 X 10^3 (0.0-1.0); MONOCYTES % (AUTO) 10 % (0-12); NEUTROPHILS % (AUTO) 38 % (42-75); PLATELET COUNT 280 10^3/uL (130-400); RED BLOOD COUNT 4.36 10^6/uL (4.35-5.85); RED CELL DISTRIBUTION WIDTH 18.2 % (10.0-14.5); WHITE BLOOD COUNT 7.9 10^3/uL (4.3-11.0)
[2017-12-07 09:53] LABS: ALANINE AMINOTRANSFERASE 13 U/L (0-55); ALBUMIN 4.1 GM/DL (3.2-4.5); ALKALINE PHOSPHATASE 79 U/L (40-136); BILIRUBIN,TOTAL 0.3 MG/DL (0.1-1.0); BUN/CREATININE RATIO 16; CALCIUM 9.2 MG/DL (8.5-10.1); CARBON DIOXIDE 25 MMOL/L (21-32); CHLORIDE 107 MMOL/L (98-107); CREATININE SERUM 0.82 MG/DL (0.60-1.30); GFR ESTIMATED > 60; GLUCOSE 94 MG/DL (70-105); POTASSIUM 4.4 MMOL/L (3.6-5.0); SODIUM 141 MMOL/L (135-145); TOTAL PROTEIN 7.4 GM/DL (6.4-8.2)
[2017-12-14 08:19] LABS: BASOPHILS # (AUTO) 0.1 10^3/uL (0.0-0.1); BASOPHILS % (AUTO) 1 % (0-10); EOSINOPHILS # (AUTO) 0.4 10^3/uL (0.0-0.3); EOSINOPHILS % (AUTO) 6 % (0-10); HEMATOCRIT 39 % (40-54); HEMOGLOBIN 12.6 G/DL (13.3-17.7); LYMPHOCYTES % (AUTO) 46 % (12-44); MEAN CORPUSCULAR HEMOGLOBIN 27 PG (25-34); MEAN CORPUSCULAR HGB CONC 32 G/DL (32-36); MEAN CORPUSCULAR VOLUME 83 FL (80-99); MEAN PLATELET VOLUME 9.7 FL (7.4-10.4); MONOCYTES # (AUTO) 0.6 X 10^3 (0.0-1.0); MONOCYTES % (AUTO) 9 % (0-12); NEUTROPHILS # (AUTO) 2.5 X 10^3 (1.8-7.8); NEUTROPHILS % (AUTO) 38 % (42-75); PLATELET COUNT 248 10^3/uL (130-400); RED BLOOD COUNT 4.67 10^6/uL (4.35-5.85); RED CELL DISTRIBUTION WIDTH 18.7 % (10.0-14.5); WHITE BLOOD COUNT 6.5 10^3/uL (4.3-11.0)
[2017-12-14 08:39] LABS: BUN/CREATININE RATIO 13; CALCIUM 9.1 MG/DL (8.5-10.1); CARBON DIOXIDE 22 MMOL/L (21-32); CHLORIDE 104 MMOL/L (98-107); CREATININE SERUM 0.89 MG/DL (0.60-1.30); GFR ESTIMATED > 60; GLUCOSE 96 MG/DL (70-105); POTASSIUM 4.5 MMOL/L (3.6-5.0); SODIUM 138 MMOL/L (135-145)
[~2017-12-28] VITALS: Ht 165.1 cm; Wt 105.7 kg
[~2017-12-28 09:10] MED LIST changes: -BARIUM SUSPENSION 2.1% (VANILLA SILQ) 450 ML PO ONE; +BEVACIZUMAB IV SCH; +D5W 500 ML IV (CANCER CTR) 500 ML IV SCH; +FLUOROURACIL 0.6 GM in SYRINGE-IVPB 1 SYRINGE IV SCH; +FLUOROURACIL IV SCH; +FOSAPREPITANT DIMEGLUMINE 150 MG in NS (IVPB) CANCER CENTER ONLY 150 ML IV SCH; -IOHEXOL 350 MG/ML 100 ML (OMNIPAQUE 350) VIAL IV ONE; +LEUCOVORIN CALCIUM 600 MG in D5W 250 ML IVPB (CANCER CTR) 250 ML IV SCH; -NS 100 ML (IVPB) BAG IV ONE; +NS IV SCH; +ONDANSETRON MDV (CANCER CENTER 8 MG, DEXAMETHASONE INJ (CANCER CTR) 4 MG in D5W 50 ML I... IV SCH; +OXALIPLATIN 100 MG, OXALIPLATIN (GENERIC) 50 MG in D5W 250 ML IVPB (CANCER CTR) 250 ML IV SCH; +PALONOSETRON HCL 0.25 MG, DEXAMETHASONE PF INJ (CANCER C 10 MG in NS (IVPB) CANCER CENT... IV PRN; +[UNRECOGNIZED DRUG - OTHER] IV SCH; +oxyCODONE/APAP 10/325MG (PERCOCET 10) TABLET PO ONE
[2017-12-28 09:34] LABS: BASOPHILS # (AUTO) 0.1 10^3/uL (0.0-0.1); BASOPHILS % (AUTO) 1 % (0-10); EOSINOPHILS # (AUTO) 0.3 10^3/uL (0.0-0.3); EOSINOPHILS % (AUTO) 5 % (0-10); HEMATOCRIT 35 % (40-54); LYMPHOCYTES # (AUTO) 2.9 X 10^3 (1.0-4.0); LYMPHOCYTES % (AUTO) 54 % (12-44); MEAN CORPUSCULAR HEMOGLOBIN 27 PG (25-34); MEAN CORPUSCULAR HGB CONC 32 G/DL (32-36); MEAN CORPUSCULAR VOLUME 84 FL (80-99); MEAN PLATELET VOLUME 9.9 FL (7.4-10.4); MONOCYTES # (AUTO) 0.7 X 10^3 (0.0-1.0); MONOCYTES % (AUTO) 13 % (0-12); NEUTROPHILS # (AUTO) 1.5 X 10^3 (1.8-7.8); NEUTROPHILS % (AUTO) 27 % (42-75); PLATELET COUNT 251 10^3/uL (130-400); RED BLOOD COUNT 4.13 10^6/uL (4.35-5.85); WHITE BLOOD COUNT 5.3 10^3/uL (4.3-11.0)
[2017-12-28 09:51] LABS: ALANINE AMINOTRANSFERASE 15 U/L (0-55); ALBUMIN 3.9 GM/DL (3.2-4.5); ALKALINE PHOSPHATASE 84 U/L (40-136); BILIRUBIN,TOTAL 0.3 MG/DL (0.1-1.0); BUN/CREATININE RATIO 18; CALCIUM 8.6 MG/DL (8.5-10.1); CARBON DIOXIDE 23 MMOL/L (21-32); CHLORIDE 108 MMOL/L (98-107); CREATININE SERUM 0.78 MG/DL (0.60-1.30); GFR ESTIMATED > 60; GLUCOSE 106 MG/DL (70-105); SODIUM 140 MMOL/L (135-145); TOTAL PROTEIN 6.9 GM/DL (6.4-8.2)
[2017-12-28] MEDS ORDERED: ONDANSETRON 8 MG, DEXAMETHASONE 4 MG/NS 50 ML IVPB (Cancer Ctr) IV SCH ×3 (10:45)
[2017-12-28] MEDS ORDERED: methylPREDNISolone 125 MG/2 ML (SOLU-MEDROL) CANCER CTR ONE (11:07)
[2017-12-28] MEDS ORDERED: diphenhydrAMINE 50 MG/ML INJ (CANCER CENTER) ONE (11:14)
[2017-12-28] MEDS ORDERED: RT-ALBUTEROL SULF 2.5 MG/3 ML PRE-MIX VIAL ONE (11:15)
[2017-12-28] MEDS ORDERED: PRD20T PO (14:58)
== END 2017-12-29 12:26 | disposition home or self-care (01) ==
LOC: ONC 09:10
PROVIDERS: ATTEND Internal Medicine Hematology & Oncology
DX: Z51.11 Encounter for antineoplastic chemotherapy (principal); C18.0 Malignant neoplasm of cecum; C78.7 Secondary malignant neoplasm of liver and intrahepatic bile duct; K76.9 Liver disease, unspecified; Z90.49 Acquired absence of other specified parts of digestive tract; Z23 Encounter for immunization
CPT/HCPCS: 36415; 36591; 80048; 80053; 82378; 83735; 85025; 87804; 96367; 96368; 96375; 96409; 96411; 96413

== ENCOUNTER 2017-12-28 11:33 | Emergency (ER) | payer MEDICARE ==
[~2017-12-28] VITALS: Ht 165.1 cm; Wt 107.0 kg
[~2017-12-28 11:33] MED LIST changes: -BEVACIZUMAB IV SCH; -D5W 500 ML IV (CANCER CTR) 500 ML IV SCH; -FLUOROURACIL 0.6 GM in SYRINGE-IVPB 1 SYRINGE IV SCH; -FLUOROURACIL IV SCH; -FOSAPREPITANT DIMEGLUMINE 150 MG in NS (IVPB) CANCER CENTER ONLY 150 ML IV SCH; -LEUCOVORIN CALCIUM 600 MG in D5W 250 ML IVPB (CANCER CTR) 250 ML IV SCH; -NS IV SCH; -ONDANSETRON MDV (CANCER CENTER 8 MG, DEXAMETHASONE INJ (CANCER CTR) 4 MG in D5W 50 ML I... IV SCH; -OXALIPLATIN 100 MG, OXALIPLATIN (GENERIC) 50 MG in D5W 250 ML IVPB (CANCER CTR) 250 ML IV SCH; -PALONOSETRON HCL 0.25 MG, DEXAMETHASONE PF INJ (CANCER C 10 MG in NS (IVPB) CANCER CENT... IV PRN; -[UNRECOGNIZED DRUG - OTHER] IV SCH; -oxyCODONE/APAP 10/325MG (PERCOCET 10) TABLET PO ONE
[2017-12-28] MEDS ORDERED: SUCCINYLCHOLINE INJ 100 MG/5 ML SYR INJ ONE (11:36)
[2017-12-28] MEDS ORDERED: NS IV 1000 ML 1,000 ML ONE (11:36)
[2017-12-28] MEDS ORDERED: ETOMIDATE IV SOLN 20 MG/10 ML VIAL IV ONE (11:36)
[2017-12-28] MEDS ORDERED: RT-ALBUTEROL SULF 2.5 MG/3 ML PRE-MIX VIAL ONE (11:51)
[2017-12-28] MEDS ORDERED: RT-ALBUTEROL SULF 2.5 MG/3 ML PRE-MIX VIAL INH STA (11:54)
--- NOTE | 2017-12-28 12:08 | ED Respiratory ---
General Chief Complaint: Respiratory Problems Stated Complaint: POSS ALLERGIC REACTION/SOA Source: patient Exam Limitations: no limitations History of Present Illness Date Seen by Provider: Dec 28, 2017 Time Seen by Provider: 11:30 Initial Comments Here from [facility] with report of acute onset shortness of breath, weakness , hypotension and altered mental status. Patient was receiving chemotherapeutic treatment at the time. This was stopped and they did give Solu -Medrol 125 mg IV as well as Benadryl IV and did receive a breathing treatment. This usually will resolve reactions related to the chemotherapy pretty quickly but things did not change. He was brought over from the [facility] center to here requiring 6 L of oxygen by nasal cannula with oxygen saturations in the mid 80s. Patient is very weak and lethargic. Arrives with his daughter and son -in-law at bedside. He has had this same chemotherapeutic agent 8 times previously. Timing/Duration: just prior to arrival Severity: severe Prior Episodes/Possible Cause: no prior episodes Modifying Factors: Worse With Activity, Improves With Oxygen, Improves With Rest Associated Symptoms: chest pain/soreness, dizziness, No fever/chills, shortness of breath, wheezing Allergies and Home Medications Allergies Coded Allergies: oxaliplatin (Verified Allergy, Severe, 12/28/17) Home Medications Amlodipine Besylate 10 Mg Tablet, 10 MG PO DAILY, (Reported) Baclofen 10 Mg Tablet, 10 MG PO TID PRN for MUSCLE SPASMS, (Reported) Carvedilol 3.125 Mg Tablet, 3.125 MG PO BID WITH MEALS, (Reported) Furosemide 20 Mg Tablet, 20 MG PO DAILY PRN for feet swelling, (Reported) Lisinopril 10 Mg Tablet, 10 MG PO DAILY@0900 for 30 Days, #30 Prescribed by: J CARLOS ARANDA on 06/14/17 1041 Oxycodone HCl/Acetaminophen 1 Each Tablet, 2 TAB PO Q6H PRN for PAIN-SEVERE, ( Reported) [Vitamin B17] , 1 TAB PO DAILY, (Reported) Constitutional: see HPI, No chills, No fever, weakness EENTM: no symptoms reported Respiratory: see HPI, short of breath, wheezing Cardiovascular: chest pain, edema Gastrointestinal: No abdominal pain, No nausea, No vomiting Genitourinary: no symptoms reported Musculoskeletal: no symptoms reported Skin: no symptoms reported Psychiatric/Neurological: No Symptoms Reported All Other Systems Reviewed Negative Unless Noted: Yes Past Eimuyog-Rccuhi-Ppisgr Hx Patient Social History Alcohol Use: Occasionally Uses Alcohol Beverage of Choice: Beer Recreational Drug Use: No Smoking Status: Former Smoker Type Used: Cigarettes Former Smoker, Quit: March 28, 2017 Recent Hopitalizations: No Immunizations Up To Date Tetanus Booster (TDap): Unknown Date of Pneumonia Vaccine: Aug 30, 2015 Seasonal Allergies Seasonal Allergies: Yes Surgeries History of Surgeries: Yes (COLONOSCOPY, COLON RESECTION, ligament surgery on leg) Surgeries: Abdominal, Tonsillectomy Respiratory History of Respiratory Disorde: Yes Currently Using CPAP: No Currently Using BIPAP: No Cardiovascular History of Cardiac Disorders: Yes Cardiac Disorders: Hypertension Neurological History of Neurological Disord: No Reproductive System Hx Reproductive Disorders: No Sexually Transmitted Disease: No HIV/AIDS: No Genitourinary History of Genitourinary Disor: No Gastrointestinal History of Gastrointestinal Di: Yes (CECAL MASS, RLQ PAIN) Gastrointestinal Disorders: Hemorrhoids Musculoskeletal History of Musculoskeletal Dis: Yes Musculoskeletal Disorders: Arthritis, Back Injury Endocrine History of Endocrine Disorders: No HEENT History of HEENT Disorders: Yes (GLASSES) Loss of Vision: Bilateral Hearing Impairment: Denies Cancer History of Cancer: Yes Cancer: Colon Type of Tx Receive: Chemotherapy, Surgical Intervention Psychosocial History of Psychiatric Problem: No Integumentary History of Skin or Integumenta: No Blood Transfusions History of Blood Disorders: No Adverse Reaction to a Blood Tr: No Reviewed Nursing Assessment Reviewed/Agree w Nursing PMH: Yes Family Medical History Significant Family History: Heart Disease, Hypertension Family Medial History: Patient reports no known family medical history. Physical Exam Vital Signs Vital Signs - First Documented 12/28/17 11:33 Temp 96.4 Pulse 87 Resp 18 B/P (MAP) 140/93 (109) Pulse Ox 87 O2 Delivery Nasal Cannula O2 Flow Rate 5.00 Capillary Refill : General Appearance: WD/WN, severe distress, obese HEENT: PERRL/EOMI, pharynx normal Neck: full range of motion, supple Respiratory: no accessory muscle use, wheezing Cardiovascular: no murmur, tachycardia Gastrointestinal: non tender, soft Extremities: non-tender, pedal edema (2+ to the mid tibia bilaterally) Neurologic/Psychiatric: alert, oriented x 3 Skin: normal color, warm/dry Date of ETT Placement: May 16, 2017 Time of ETT Placement: 1729 Progress/Results/Core Measures Suspected Sepsis SIRS Temperature: Pulse: 78 Respiratory Rate: 22 Blood Pressure / Mean: Results/Orders Lab Results Laboratory Tests Test 12/28/17 09:25 12/28/17 12:17 12/28/17 12:25 12/28/17 14:03 Range/Units Magnesium Level 1.7 L 1.8-2.4 MG/DL Blood Gas Puncture Site RT RAD Blood Gas Patient Temperature 96.4 Arterial Blood pH 7.25 *L 7.37-7.43 Arterial Blood Partial Pressure CO2 51 H 35-45 MMHG Arterial Blood Partial Pressure O2 137 H 79-93 MMHG Arterial Blood HCO3 22 L 23-27 MMOL/L Arterial Blood Total CO2 23.7 21.0-31.0 MMOL/L Arterial Blood Oxygen Saturation 99 94-100 % Arterial Blood Base Excess -4.3 L -2.5-2.5 MMOL/L Ryan Test YES-POS Blood Gas Ventilator Setting NO Blood Gas Inspired Oxygen 40% Troponin I < 0.30 < 0.30 <0.30 NG/ML Myoglobin 36.3 10.0-92.0 NG/ML My Orders Orders - RISA ARAMBULA MD Ns Iv 1000 Ml (Sodium Chloride 0.9%) (12/28/17 11:36) Albuterol Pre-Mix Nebs (Rt) (Proventil (12/28/17 11:51) Chest 1 View, Ap/Pa Only (12/28/17 11:54) Arterial Blood Gas (12/28/17 12:17) Magnesium (12/28/17 11:54) Albuterol Pre-Mix Nebs (Rt) (Proventil (12/28/17 11:54) Ct Angio Chest W (12/28/17 11:54) Svn Sm Volume Nebulizer Rt-Rfs (12/28/17 11:54) Iohexol Injection (Omnipaque 350 Mg/Ml 1 (12/28/17 12:15) Ns (Ivpb) (Sodium Chloride 0.9%) (12/28/17 12:15) Troponin I (12/28/17 12:16) Troponin I (12/28/17 13:51) Myoglobin Serum (12/28/17 13:51) Ekg Tracing (12/28/17 13:51) Etomidate Injection (Amidate Injection) (12/28/17 11:36) Succinylcholine Injection (Succinylcholi (12/28/17 11:36) Medications Given in ED Current Medications Medications Dose Ordered Sig/Solitario Route Start Time Stop Time Status Last Admin Dose Admin Albuterol Sulfate 2.5 mg STK-MED ONCE .ROUTE 12/28/17 11:51 12/28/17 11:55 DC 12/28/17 11:58 2.5 MG Iohexol 125 ml ONCE ONCE IV 12/28/17 12:15 12/28/17 12:16 DC 12/28/17 12:53 125 ML Sodium Chloride 1,000 ml @ ud STK-MED ONCE .ROUTE 12/28/17 11:36 12/28/17 11:39 DC 12/28/17 11:57 1,000 MLS/HR Vital Signs/I&O Vital Sign - Last 12Hours 12/28/17 12/28/17 11:33 11:59 Temp 96.4 Pulse 87 78 Resp 18 22 B/P (MAP) 140/93 (109) Pulse Ox 87 100 O2 Delivery Nasal Cannula O2 Flow Rate 5.00 50.00 Capillary Refill : Progress Note : Progress Note Seen and evaluated. IV via port access are accomplished at [facility]. Labs were drawn at [facility]. Patient was switched to facemask at 15 L with no significant improvement of oxygen saturation with high saturation of 92 percent. I did discuss with the patient and family regarding controlling his breathing especially in light of the rapid change. Pulmonary embolus is definitely a concern. We will also evaluate for cardiac cause. We elected for intubation. Just prior to intubation, positive pressure ventilation was used. [id number] and he responded rapidly with improved mental status rapidly. We elected to hold on endotracheal intubation and instead initiate BiPAP as his mental status has improved. This worked very well. 1208: Heart rate has declined 87 with O2 sat of 100 percent and blood pressure 155/95. His mental status is much improved. He did get albuterol neb treatment with BiPAP. We will evaluate for pulmonary embolus via CT angiogram of the chest. He is currently receiving 1 L of normal saline bolus. I have reviewed the labs that were done earlier today. See hospital records for laboratory values. Of note his creatinine is 0.78. We have added a few labs including troponin given his current situation. All of this was discussed with the patient and family who were in agreement and appreciative. Monitor patient. 1235: BiPAP has been discontinued in place and is now on oxygen mask at 5 L with 100 percent O2 sat. Color is much better. Blood pressure is stable. We will also get CT angiogram of the chest. Monitor patient. 1450: Patient off O2 now and has been for an hour. Repeat EKG and troponin and/myoglobin ordered. These are negative. Patient much more comfortable and doing better. I discussed the case with Dr. Strong. We will keep the patient on prednisone for 2 days. Discharge home with return precautions. Patient and family verbalize understanding of instructions and agreement with plan. ECG Initial ECG Impression Date: Dec 28, 2017 Initial ECG Impression Time: 11:35 Initial ECG Rate: 94 Initial ECG Rhythm: Normal Sinus Comment Sinus rhythm with normal axis. No evidence of ST elevation [place]. Similar to previous of 08 April 2012. Interpreted by me. Diagnostic Imaging Diagonstic Imaging: CT Plain Films/CT/US/NM/MRI: chest Comments [facility] [place] NAME: GEMMA AWAN Reynaldo MED REC#: [id number] PT STATUS: REG ER : 09/15/1927 PHYSICIAN: RISA ARAMBULA MD ADMIT DATE: 12/28/17/ER Draft Date of Exam:12/28/17 CHEST 1 VIEW, AP/PA ONLY INDICATION: Cough and headache. COMPARISON: 02/04/2016 FINDINGS: Development of right mid and lower lung zone airspace consolidations. No pleural effusion or pneumothorax. Heart is enlarged and status post CABG. Atherosclerotic aorta. IMPRESSION: Development of multifocal pneumonia in the right lung. Dictated on workstation # [id number] Dict: 12/28/17 0739 Trans: 12/28/17 0741 СВЕТЛАНА [id number] Interpreted by: BLAYNE BROOKS MD Electronically signed by: Reviewed: Reviewed by Me Diagonstic Imaging: Xray Plain Films/CT/US/NM/MRI: chest Comments NAME: EDITH JIMÉNEZ MED REC#: [id number] PT STATUS: REG ER : 1960 PHYSICIAN: RISA ARAMBULA MD ADMIT DATE: 12/28/17/ER Draft Date of Exam:12/28/17 CHEST 1 VIEW, AP/PA ONLY INDICATION: Shortness of air. Weakness. COMPARISON: CTA chest from earlier same day. FINDINGS: Single frontal view of the chest demonstrates normal heart size and pulmonary vascularity. The lungs are well aerated and clear. No large pleural effusion or pneumothorax is seen. The visualized osseous structures show no acute abnormalities. Right internal jugular Port-A-Cath is present with tip at the cavoatrial junction. IMPRESSION: 1. No acute cardiopulmonary process. Dictated on workstation # [id number] Dict: 12/28/17 1320 Trans: 12/28/17 1324 [facility] [id number] Interpreted by: XENA QUEEN MD Electronically signed by: Departure Impression Impression: Primary Impression: Anaphylaxis Qualified Codes: T78.2XXA - Anaphylactic shock, unspecified, initial encounter Disposition: 01 HOME, SELF-CARE Condition: Improved Departure-Patient Inst. Decision time for Depature: 14:57 Referrals: MONIE PEREZ MD (PCP/Family) Primary Care Physician Patient Instructions: Anaphylaxis (DC) Add. Discharge Instructions: All discharge instructions reviewed with patient and/or family. Voiced understanding. Take medications as directed. Follow-up with your DrKurtis in a few days for recheck. Return for worse pain, fever, vomiting, weakness, breathing problems or other concerns as needed. Scripts Prednisone (Prednisone) 20 Mg Tab 40 MG PO DAILY, #4 TAB 0 Refills Prov: RISA ARAMBULA MD 12/28/17 RISA ARAMBULA MD Dec 28, 2017 12:08
[2017-12-28] MEDS ORDERED: IOHEXOL 350 MG/ML 150 ML (OMNIPAQUE 350) VIAL IV ONE (12:15)
[2017-12-28] MEDS ORDERED: NS 250 ML (IVPB) BAG IV ONE (12:15)
[2017-12-28 12:27] LABS: ABG BASE EXCESS -4.3 MMOL/L (-2.5-2.5); ABG OXYGEN SATURATION 99 % (94-100); ABG PCO2 51 MMHG (35-45); ABG PO2 137 MMHG (79-93); ABG TCO2 23.7 MMOL/L (21.0-31.0)
[2017-12-28 12:28] LABS: ABG PH 7.25 (7.37-7.43); ALLENS TEST YES-POS; INSPIRED O2 40%; PATIENT TEMP 96.4; VENTILATOR NO
--- NOTE | 2017-12-28 13:24 | Diagnostic Imaging Report ---
PROCEDURE: CT angiography of the chest with contrast. TECHNIQUE: Multiple contiguous axial images were obtained through the chest after uneventful bolus administration of intravenous contrast. Reconstructed CTA MIP acquisitions were also performed. INDICATION: Shortness of breath and chest heaviness during chemotherapy administration today. Correlation is made with a CT chest study from 11/30/2017. FINDINGS: Pulmonary arterial opacification is suboptimal, significantly limiting the study. The central pulmonary arteries are patent and without evidence of thromboembolism. Lobar and segmental branches cannot be evaluated. The thoracic aorta is normal in caliber. No dissection is seen. No pericardial or pleural fluid is identified. There are some mildly prominent AP window lymph nodes, appearing more prominent than prior study. Short axis measurement of the more prominent AP node is approximately 8 mm. High right paratracheal node short axis measurement is 9 mm compared with 6 mm on prior. Right hilar node is stable at 8 mm. There is some subcarinal fullness which is new on today's exam measuring 16 mm. The axillae are unremarkable. Right chest wall port remains in place. No parenchymal nodule, mass or infiltrate is seen. Upper abdomen again demonstrates previously noted low-density masses within the liver, similar in size and consistent with hepatic metastatic disease. Spinal instrumentation within the thoracic spine is noted. IMPRESSION: 1. Suboptimal opacification of the pulmonary arterial system. No central emboli are detected. Peripheral branches cannot be evaluated. 2. Increase in prominence of mediastinal lymph nodes when compared with prior study from one month earlier. No other new abnormality is identified. Dictated by: Dictated on workstation # [id number]
--- NOTE | 2017-12-28 13:24 | Diagnostic Imaging Report ---
INDICATION: Shortness of air. Weakness. COMPARISON: CTA chest from earlier same day. FINDINGS: Single frontal view of the chest demonstrates normal heart size and pulmonary vascularity. The lungs are well aerated and clear. No large pleural effusion or pneumothorax is seen. The visualized osseous structures show no acute abnormalities. Right internal jugular Port-A-Cath is present with tip at the cavoatrial junction. IMPRESSION: 1. No acute cardiopulmonary process. Dictated by: Dictated on workstation # [id number]
[2017-12-28 14:39] LABS: MYOGLOBIN SERUM 36.3 NG/ML (10.0-92.0)
[2017-12-28] MEDS ORDERED: PRD20T PO (14:58)
[2017-12-28 15:19] VITALS: BP 136/72
== END 2017-12-28 15:15 | disposition home or self-care (01) ==
LOC: EDUNIT# 11:33 → ER 11:35
DX: T78.2XXA Anaphylactic shock, unspecified, initial encounter (principal); C18.9 Malignant neoplasm of colon, unspecified; I10 Essential (primary) hypertension; Z92.21 Personal history of antineoplastic chemotherapy; Z88.2 Allergy status to sulfonamides; Z87.891 Personal history of nicotine dependence; Z82.49 Family history of ischemic heart disease and other diseases of the circulatory system; Z90.89 Acquired absence of other organs
CPT/HCPCS: 36415; 71045; 71275; 82805; 83735; 83874; 84484; 93005; 96360

== ENCOUNTER → 2018-01-15 | Outpatient (CLI) | payer MEDICARE ==
[~2018-01-15] MED LIST changes: +PRD20T PO
--- NOTE | 2018-01-15 15:28 | Diagnostic Imaging Report ---
EXAM: T-SPINE 3V-AP, LAT, SWIMMERS INDICATION: AFTERCARE FOLLOWING SRG COMPARISON: Thoracic spine radiographs 09/18/2017. FINDINGS: Again seen are postoperative findings of bilateral cheng and pedicle screw fixation at T10 through L1. Hardware components are intact. No evidence of loosening. Stable superior endplate deformity of T12. No acute fractures. Normal alignment IVC filter. Right IJ CVC tip below SVC. IMPRESSION: Stable exam including postoperative findings of bilateral cheng and pedicle screw fixation at T10 through L1. No evidence of hardware failure. Dictated by: Dictated on workstation # [id number]
== END ==
LOC: RAD 14:25
PROVIDERS: ATTEND Physician Assistant
DX: Z48.89 Encounter for other specified surgical aftercare (principal); Z98.1 Arthrodesis status
CPT/HCPCS: 72072

== ENCOUNTER 2018-02-01 13:20 | Outpatient (RCR) | payer MEDICARE, OTHER ==
[2018-01-02 13:40] LABS: BASOPHILS % (AUTO) 0 % (0-10); EOSINOPHILS # (AUTO) 0.1 10^3/uL (0.0-0.3); EOSINOPHILS % (AUTO) 1 % (0-10); HEMATOCRIT 39 % (40-54); HEMOGLOBIN 12.6 G/DL (13.3-17.7); LYMPHOCYTES % (AUTO) 23 % (12-44); MEAN CORPUSCULAR HEMOGLOBIN 26 PG (25-34); MEAN CORPUSCULAR HGB CONC 33 G/DL (32-36); MEAN CORPUSCULAR VOLUME 81 FL (80-99); MEAN PLATELET VOLUME 9.8 FL (7.4-10.4); MONOCYTES # (AUTO) 0.2 X 10^3 (0.0-1.0); MONOCYTES % (AUTO) 3 % (0-12); NEUTROPHILS # (AUTO) 6.3 X 10^3 (1.8-7.8); NEUTROPHILS % (AUTO) 73 % (42-75); PLATELET COUNT 266 10^3/uL (130-400); RED BLOOD COUNT 4.77 10^6/uL (4.35-5.85); RED CELL DISTRIBUTION WIDTH 17.4 % (10.0-14.5); WHITE BLOOD COUNT 8.7 10^3/uL (4.3-11.0)
[2018-01-02 14:04] LABS: BUN/CREATININE RATIO 16; CARBON DIOXIDE 27 MMOL/L (21-32); CHLORIDE 105 MMOL/L (98-107); CREATININE SERUM 0.79 MG/DL (0.60-1.30); GFR ESTIMATED > 60; GLUCOSE 129 MG/DL (70-105); POTASSIUM 4.9 MMOL/L (3.6-5.0); SODIUM 139 MMOL/L (135-145)
[2018-01-11 11:51] LABS: BASOPHILS # (AUTO) 0.1 10^3/uL (0.0-0.1); BASOPHILS % (AUTO) 1 % (0-10); EOSINOPHILS # (AUTO) 0.3 10^3/uL (0.0-0.3); EOSINOPHILS % (AUTO) 4 % (0-10); HEMATOCRIT 37 % (40-54); HEMOGLOBIN 12.1 G/DL (13.3-17.7); LYMPHOCYTES # (AUTO) 3.9 X 10^3 (1.0-4.0); LYMPHOCYTES % (AUTO) 43 % (12-44); MEAN CORPUSCULAR HEMOGLOBIN 27 PG (25-34); MEAN CORPUSCULAR HGB CONC 32 G/DL (32-36); MEAN CORPUSCULAR VOLUME 83 FL (80-99); MEAN PLATELET VOLUME 9.8 FL (7.4-10.4); MONOCYTES # (AUTO) 0.8 X 10^3 (0.0-1.0); MONOCYTES % (AUTO) 9 % (0-12); NEUTROPHILS # (AUTO) 3.8 X 10^3 (1.8-7.8); NEUTROPHILS % (AUTO) 43 % (42-75); PLATELET COUNT 217 10^3/uL (130-400); RED BLOOD COUNT 4.51 10^6/uL (4.35-5.85); RED CELL DISTRIBUTION WIDTH 18.3 % (10.0-14.5); WHITE BLOOD COUNT 8.9 10^3/uL (4.3-11.0)
[2018-01-11 12:08] LABS: ALANINE AMINOTRANSFERASE 23 U/L (0-55); ALBUMIN 4.1 GM/DL (3.2-4.5); ALKALINE PHOSPHATASE 76 U/L (40-136); BILIRUBIN,TOTAL 0.2 MG/DL (0.1-1.0); BUN/CREATININE RATIO 16; CALCIUM 9.1 MG/DL (8.5-10.1); CARBON DIOXIDE 27 MMOL/L (21-32); CHLORIDE 107 MMOL/L (98-107); GFR ESTIMATED > 60; GLUCOSE 104 MG/DL (70-105); POTASSIUM 4.4 MMOL/L (3.6-5.0); SODIUM 140 MMOL/L (135-145); TOTAL PROTEIN 7.1 GM/DL (6.4-8.2)
[2018-01-18 11:27] LABS: BASOPHILS % (AUTO) 0 % (0-10); EOSINOPHILS # (AUTO) 0.3 10^3/uL (0.0-0.3); EOSINOPHILS % (AUTO) 7 % (0-10); HEMATOCRIT 36 % (40-54); HEMOGLOBIN 11.2 G/DL (13.3-17.7); LYMPHOCYTES # (AUTO) 1.4 X 10^3 (1.0-4.0); LYMPHOCYTES % (AUTO) 37 % (12-44); MEAN CORPUSCULAR HEMOGLOBIN 26 PG (25-34); MEAN CORPUSCULAR HGB CONC 31 G/DL (32-36); MEAN CORPUSCULAR VOLUME 83 FL (80-99); MEAN PLATELET VOLUME 9.4 FL (7.4-10.4); MONOCYTES # (AUTO) 0.4 X 10^3 (0.0-1.0); MONOCYTES % (AUTO) 9 % (0-12); NEUTROPHILS # (AUTO) 1.8 X 10^3 (1.8-7.8); NEUTROPHILS % (AUTO) 47 % (42-75); PLATELET COUNT 180 10^3/uL (130-400); RED BLOOD COUNT 4.29 10^6/uL (4.35-5.85); RED CELL DISTRIBUTION WIDTH 17.9 % (10.0-14.5); WHITE BLOOD COUNT 3.9 10^3/uL (4.3-11.0)
[2018-01-18 11:51] LABS: BUN/CREATININE RATIO 14; CALCIUM 8.9 MG/DL (8.5-10.1); CARBON DIOXIDE 31 MMOL/L (21-32); CHLORIDE 99 MMOL/L (98-107); CREATININE SERUM 0.84 MG/DL (0.60-1.30); GFR ESTIMATED > 60; GLUCOSE 100 MG/DL (70-105); POTASSIUM 4.3 MMOL/L (3.6-5.0); SODIUM 137 MMOL/L (135-145)
[2018-01-25 09:50] LABS: BASOPHILS # (AUTO) 0.1 10^3/uL (0.0-0.1); BASOPHILS % (AUTO) 1 % (0-10); EOSINOPHILS # (AUTO) 0.3 10^3/uL (0.0-0.3); EOSINOPHILS % (AUTO) 6 % (0-10); HEMATOCRIT 38 % (40-54); HEMOGLOBIN 11.7 G/DL (13.3-17.7); LYMPHOCYTES # (AUTO) 3.2 X 10^3 (1.0-4.0); LYMPHOCYTES % (AUTO) 56 % (12-44); MEAN CORPUSCULAR HEMOGLOBIN 26 PG (25-34); MEAN CORPUSCULAR HGB CONC 31 G/DL (32-36); MEAN CORPUSCULAR VOLUME 85 FL (80-99); MEAN PLATELET VOLUME 10.1 FL (7.4-10.4); MONOCYTES # (AUTO) 0.6 X 10^3 (0.0-1.0); MONOCYTES % (AUTO) 10 % (0-12); NEUTROPHILS # (AUTO) 1.6 X 10^3 (1.8-7.8); NEUTROPHILS % (AUTO) 28 % (42-75); PLATELET COUNT 242 10^3/uL (130-400); RED BLOOD COUNT 4.45 10^6/uL (4.35-5.85); RED CELL DISTRIBUTION WIDTH 17.6 % (10.0-14.5); WHITE BLOOD COUNT 5.6 10^3/uL (4.3-11.0)
[2018-01-25 10:06] LABS: ALANINE AMINOTRANSFERASE 17 U/L (0-55); ALBUMIN 4.1 GM/DL (3.2-4.5); ALKALINE PHOSPHATASE 72 U/L (40-136); BILIRUBIN,TOTAL 0.2 MG/DL (0.1-1.0); BUN/CREATININE RATIO 14; CALCIUM 9.1 MG/DL (8.5-10.1); CARBON DIOXIDE 27 MMOL/L (21-32); CHLORIDE 105 MMOL/L (98-107); CREATININE SERUM 0.92 MG/DL (0.60-1.30); GFR ESTIMATED > 60; GLUCOSE 102 MG/DL (70-105); MAGNESIUM 1.9 MG/DL (1.8-2.4); POTASSIUM 4.5 MMOL/L (3.6-5.0); SODIUM 138 MMOL/L (135-145); TOTAL PROTEIN 6.7 GM/DL (6.4-8.2)
[~2018-02-01] VITALS: Ht 165.1 cm; Wt 106.1 kg
[~2018-02-01 13:20] MED LIST changes: +ATROPINE INJ 0.4 MG/ML SDV (CANCER CENTER) INJ SCH; +D5W 500 ML IV (CANCER CTR) 500 ML IV SCH; +FLUOROURACIL 0.6 GM in SYRINGE-IVPB 1 SYRINGE IV SCH; +FLUOROURACIL IV SCH; +FOSAPREPITANT DIMEGLUMINE 150 MG in NS (IVPB) CANCER CENTER ONLY 150 ML IV SCH; +HYDROcodone/APAP 10 MG/325 MG (LORTAB) TAB PO ONE; +IRINOTECAN HCL 300 MG in D5W 250 ML IVPB (CANCER CTR) 250 ML IV SCH; +LEUCOVORIN CALCIUM 600 MG in D5W 250 ML IVPB (CANCER CTR) 250 ML IV SCH; +NS IV 1000 ML (CANCER CTR) 1,000 ML ONE; +NS IV 500 ML (CANCER CENTER) 500 ML ONE; +NS IV SCH; +ONDANSETRON 8 MG, DEXAMETHASONE 4 MG/NS 50 ML IVPB (Cancer Ctr) IV SCH; +PALONOSETRON HCL 0.25 MG, DEXAMETHASONE PF INJ (CANCER C 10 MG in NS (IVPB) CANCER CENT... IV PRN
[2018-02-01 13:50] LABS: BASOPHILS % (AUTO) 1 % (0-10); EOSINOPHILS # (AUTO) 0.2 10^3/uL (0.0-0.3); EOSINOPHILS % (AUTO) 4 % (0-10); HEMATOCRIT 39 % (40-54); HEMOGLOBIN 12.4 G/DL (13.3-17.7); LYMPHOCYTES # (AUTO) 3.2 X 10^3 (1.0-4.0); LYMPHOCYTES % (AUTO) 59 % (12-44); MEAN CORPUSCULAR HEMOGLOBIN 26 PG (25-34); MEAN CORPUSCULAR HGB CONC 32 G/DL (32-36); MEAN CORPUSCULAR VOLUME 82 FL (80-99); MEAN PLATELET VOLUME 9.6 FL (7.4-10.4); MONOCYTES # (AUTO) 0.4 X 10^3 (0.0-1.0); MONOCYTES % (AUTO) 8 % (0-12); NEUTROPHILS # (AUTO) 1.6 X 10^3 (1.8-7.8); NEUTROPHILS % (AUTO) 29 % (42-75); PLATELET COUNT 234 10^3/uL (130-400); RED CELL DISTRIBUTION WIDTH 17.6 % (10.0-14.5); WHITE BLOOD COUNT 5.5 10^3/uL (4.3-11.0)
[2018-02-01 14:09] LABS: BUN/CREATININE RATIO 17; CALCIUM 9.4 MG/DL (8.5-10.1); CARBON DIOXIDE 30 MMOL/L (21-32); CHLORIDE 104 MMOL/L (98-107); CREATININE SERUM 0.82 MG/DL (0.60-1.30); GFR ESTIMATED > 60; GLUCOSE 102 MG/DL (70-105); POTASSIUM 4.7 MMOL/L (3.6-5.0); SODIUM 139 MMOL/L (135-145)
== END 2018-02-07 14:03 | disposition home or self-care (01) ==
LOC: ONC 13:20
PROVIDERS: ATTEND Internal Medicine Hematology & Oncology
DX: Z51.11 Encounter for antineoplastic chemotherapy (principal); C18.0 Malignant neoplasm of cecum; C18.2 Malignant neoplasm of ascending colon; C78.7 Secondary malignant neoplasm of liver and intrahepatic bile duct; C77.2 Secondary and unspecified malignant neoplasm of intra-abdominal lymph nodes; F17.210 Nicotine dependence, cigarettes, uncomplicated; E66.01 Morbid (severe) obesity due to excess calories; Z68.41 Body mass index [BMI] 40.0-44.9, adult; Z79.899 Other long term (current) drug therapy; Z90.49 Acquired absence of other specified parts of digestive tract
CPT/HCPCS: 36415; 36591; 80048; 80053; 82378; 83735; 85025; 96367; 96368; 96374; 96375; 96411; 96413; 99213

== ENCOUNTER 2018-03-01 13:55 | Outpatient (RCR) | payer MEDICARE, OTHER ==
[2018-02-08 09:48] LABS: BASOPHILS % (AUTO) 1 % (0-10); EOSINOPHILS # (AUTO) 0.2 10^3/uL (0.0-0.3); EOSINOPHILS % (AUTO) 3 % (0-10); HEMATOCRIT 38 % (40-54); HEMOGLOBIN 12.3 G/DL (13.3-17.7); LYMPHOCYTES # (AUTO) 2.6 X 10^3 (1.0-4.0); LYMPHOCYTES % (AUTO) 42 % (12-44); MEAN CORPUSCULAR HEMOGLOBIN 26 PG (25-34); MEAN CORPUSCULAR HGB CONC 32 G/DL (32-36); MEAN CORPUSCULAR VOLUME 82 FL (80-99); MEAN PLATELET VOLUME 9.9 FL (7.4-10.4); MONOCYTES # (AUTO) 0.9 X 10^3 (0.0-1.0); MONOCYTES % (AUTO) 14 % (0-12); NEUTROPHILS # (AUTO) 2.5 X 10^3 (1.8-7.8); NEUTROPHILS % (AUTO) 40 % (42-75); PLATELET COUNT 225 10^3/uL (130-400); RED BLOOD COUNT 4.69 10^6/uL (4.35-5.85); WHITE BLOOD COUNT 6.2 10^3/uL (4.3-11.0)
[2018-02-08 10:10] LABS: ALANINE AMINOTRANSFERASE 31 U/L (0-55); ALBUMIN 4.2 GM/DL (3.2-4.5); ALKALINE PHOSPHATASE 80 U/L (40-136); BILIRUBIN,TOTAL 0.2 MG/DL (0.1-1.0); BUN/CREATININE RATIO 8; CALCIUM 9.1 MG/DL (8.5-10.1); CARBON DIOXIDE 29 MMOL/L (21-32); CHLORIDE 106 MMOL/L (98-107); CREATININE SERUM 0.83 MG/DL (0.60-1.30); GFR ESTIMATED > 60; GLUCOSE 112 MG/DL (70-105); MAGNESIUM 1.9 MG/DL (1.8-2.4); POTASSIUM 4.4 MMOL/L (3.6-5.0); SODIUM 140 MMOL/L (135-145); TOTAL PROTEIN 6.8 GM/DL (6.4-8.2)
[2018-02-15 10:14] LABS: BASOPHILS % (AUTO) 1 % (0-10); EOSINOPHILS # (AUTO) 0.4 10^3/uL (0.0-0.3); EOSINOPHILS % (AUTO) 7 % (0-10); HEMATOCRIT 39 % (40-54); HEMOGLOBIN 12.4 G/DL (13.3-17.7); LYMPHOCYTES # (AUTO) 2.9 X 10^3 (1.0-4.0); LYMPHOCYTES % (AUTO) 48 % (12-44); MEAN CORPUSCULAR HEMOGLOBIN 26 PG (25-34); MEAN CORPUSCULAR HGB CONC 32 G/DL (32-36); MEAN CORPUSCULAR VOLUME 81 FL (80-99); MEAN PLATELET VOLUME 9.9 FL (7.4-10.4); MONOCYTES # (AUTO) 0.5 X 10^3 (0.0-1.0); MONOCYTES % (AUTO) 9 % (0-12); NEUTROPHILS # (AUTO) 2.2 X 10^3 (1.8-7.8); NEUTROPHILS % (AUTO) 36 % (42-75); PLATELET COUNT 223 10^3/uL (130-400); RED BLOOD COUNT 4.78 10^6/uL (4.35-5.85); RED CELL DISTRIBUTION WIDTH 19.1 % (10.0-14.5); WHITE BLOOD COUNT 6.1 10^3/uL (4.3-11.0)
[2018-02-15 10:29] LABS: BUN/CREATININE RATIO 11; CALCIUM 9.4 MG/DL (8.5-10.1); CARBON DIOXIDE 29 MMOL/L (21-32); CHLORIDE 102 MMOL/L (98-107); CREATININE SERUM 1.03 MG/DL (0.60-1.30); GFR ESTIMATED > 60; GLUCOSE 94 MG/DL (70-105); POTASSIUM 4.2 MMOL/L (3.6-5.0); SODIUM 139 MMOL/L (135-145)
[2018-02-22 10:43] LABS: BASOPHILS % (AUTO) 1 % (0-10); EOSINOPHILS # (AUTO) 0.2 10^3/uL (0.0-0.3); EOSINOPHILS % (AUTO) 4 % (0-10); HEMATOCRIT 38 % (40-54); HEMOGLOBIN 12.2 G/DL (13.3-17.7); LYMPHOCYTES # (AUTO) 3.3 X 10^3 (1.0-4.0); LYMPHOCYTES % (AUTO) 48 % (12-44); MEAN CORPUSCULAR HEMOGLOBIN 26 PG (25-34); MEAN CORPUSCULAR HGB CONC 32 G/DL (32-36); MEAN CORPUSCULAR VOLUME 81 FL (80-99); MEAN PLATELET VOLUME 9.6 FL (7.4-10.4); MONOCYTES # (AUTO) 0.7 X 10^3 (0.0-1.0); MONOCYTES % (AUTO) 10 % (0-12); NEUTROPHILS # (AUTO) 2.7 X 10^3 (1.8-7.8); NEUTROPHILS % (AUTO) 38 % (42-75); PLATELET COUNT 203 10^3/uL (130-400); RED BLOOD COUNT 4.73 10^6/uL (4.35-5.85); RED CELL DISTRIBUTION WIDTH 19.8 % (10.0-14.5); WHITE BLOOD COUNT 6.9 10^3/uL (4.3-11.0)
[2018-02-22 11:02] LABS: ALANINE AMINOTRANSFERASE 21 U/L (0-55); ALBUMIN 3.8 GM/DL (3.2-4.5); ALKALINE PHOSPHATASE 68 U/L (40-136); BILIRUBIN,TOTAL 0.3 MG/DL (0.1-1.0); BUN/CREATININE RATIO 17; CALCIUM 8.5 MG/DL (8.5-10.1); CARBON DIOXIDE 26 MMOL/L (21-32); CHLORIDE 107 MMOL/L (98-107); CREATININE SERUM 0.82 MG/DL (0.60-1.30); GFR ESTIMATED > 60; GLUCOSE 105 MG/DL (70-105); MAGNESIUM 1.8 MG/DL (1.8-2.4); POTASSIUM 4.1 MMOL/L (3.6-5.0); SODIUM 139 MMOL/L (135-145); TOTAL PROTEIN 6.2 GM/DL (6.4-8.2)
[~2018-03-01] VITALS: Ht 165.1 cm; Wt 107.5 kg
[~2018-03-01 13:55] MED LIST changes: -D5W 500 ML IV (CANCER CTR) 500 ML IV SCH; -HYDROcodone/APAP 10 MG/325 MG (LORTAB) TAB PO ONE; -NS IV 500 ML (CANCER CENTER) 500 ML ONE
[2018-03-01 14:59] LABS: HEMOGLOBIN 13.2 G/DL (13.3-17.7); RED BLOOD COUNT 5.06 10^6/uL (4.35-5.85); WHITE BLOOD COUNT 6.4 10^3/uL (4.3-11.0)
[2018-03-01 15:00] LABS: BASOPHILS % (AUTO) 1 % (0-10); EOSINOPHILS # (AUTO) 0.2 10^3/uL (0.0-0.3); EOSINOPHILS % (AUTO) 3 % (0-10); HEMATOCRIT 40 % (40-54); LYMPHOCYTES # (AUTO) 2.6 X 10^3 (1.0-4.0); LYMPHOCYTES % (AUTO) 40 % (12-44); MEAN CORPUSCULAR HEMOGLOBIN 26 PG (25-34); MEAN CORPUSCULAR HGB CONC 33 G/DL (32-36); MEAN CORPUSCULAR VOLUME 80 FL (80-99); MEAN PLATELET VOLUME 10.7 FL (7.4-10.4); MONOCYTES # (AUTO) 0.5 X 10^3 (0.0-1.0); MONOCYTES % (AUTO) 8 % (0-12); NEUTROPHILS # (AUTO) 3.1 X 10^3 (1.8-7.8); NEUTROPHILS % (AUTO) 48 % (42-75); PLATELET COUNT 249 10^3/uL (130-400); RED CELL DISTRIBUTION WIDTH 20.9 % (10.0-14.5)
[2018-03-01 15:17] LABS: BUN/CREATININE RATIO 17; CALCIUM 9.4 MG/DL (8.5-10.1); CARBON DIOXIDE 29 MMOL/L (21-32); CHLORIDE 104 MMOL/L (98-107); CREATININE SERUM 0.82 MG/DL (0.60-1.30); GFR ESTIMATED > 60; GLUCOSE 101 MG/DL (70-105); POTASSIUM 4.2 MMOL/L (3.6-5.0); SODIUM 140 MMOL/L (135-145)
== END 2018-03-03 15:25 | disposition home or self-care (01) ==
LOC: ONC 13:55
PROVIDERS: ATTEND Internal Medicine Hematology & Oncology
DX: Z51.11 Encounter for antineoplastic chemotherapy (principal); C18.0 Malignant neoplasm of cecum; C18.2 Malignant neoplasm of ascending colon; C78.7 Secondary malignant neoplasm of liver and intrahepatic bile duct; C77.2 Secondary and unspecified malignant neoplasm of intra-abdominal lymph nodes; F17.210 Nicotine dependence, cigarettes, uncomplicated; E66.01 Morbid (severe) obesity due to excess calories; Z68.41 Body mass index [BMI] 40.0-44.9, adult; Z79.899 Other long term (current) drug therapy; Z90.49 Acquired absence of other specified parts of digestive tract
CPT/HCPCS: 36415; 36591; 80048; 80053; 83735; 85025; 96367; 96368; 96374; 96375; 96411; 96413

== ENCOUNTER → 2018-03-29 | Outpatient (CLI) | payer MEDICARE, OTHER ==
[~2018-03-29] MED LIST changes: -ATROPINE INJ 0.4 MG/ML SDV (CANCER CENTER) INJ SCH; +BARIUM SUSPENSION 2.1% (VANILLA SILQ) 450 ML PO ONE; -FLUOROURACIL 0.6 GM in SYRINGE-IVPB 1 SYRINGE IV SCH; -FLUOROURACIL IV SCH; -FOSAPREPITANT DIMEGLUMINE 150 MG in NS (IVPB) CANCER CENTER ONLY 150 ML IV SCH; +IOHEXOL 350 MG/ML 100 ML (OMNIPAQUE 350) VIAL IV ONE; -IRINOTECAN HCL 300 MG in D5W 250 ML IVPB (CANCER CTR) 250 ML IV SCH; -LEUCOVORIN CALCIUM 600 MG in D5W 250 ML IVPB (CANCER CTR) 250 ML IV SCH; +NS 250 ML (IVPB) BAG IV ONE; -NS IV 1000 ML (CANCER CTR) 1,000 ML ONE; -NS IV SCH; -ONDANSETRON 8 MG, DEXAMETHASONE 4 MG/NS 50 ML IVPB (Cancer Ctr) IV SCH; -PALONOSETRON HCL 0.25 MG, DEXAMETHASONE PF INJ (CANCER C 10 MG in NS (IVPB) CANCER CENT... IV PRN
--- NOTE | 2018-03-29 13:18 | Diagnostic Imaging Report ---
PROCEDURE: CT chest with contrast, CT abdomen and pelvis with and without contrast. TECHNIQUE: Pre and post intravenous contrast axial imaging of the abdomen and pelvis and post contrast axial imaging of the chest were performed. INDICATION: Colon carcinoma, followup. Comparison is made with prior CT from 11/30/2017. CT chest: FINDINGS: Right chest wall port has the tip at the right atrial SVC junction. No axillary lymphadenopathy is detected. Small mediastinal lymph nodes are stable. No mediastinal or hilar lymphadenopathy is detected. No pericardial or pleural fluid is identified. No pulmonary infiltrates, nodules or masses are seen. Postop changes to the right humerus are noted. There are multiple healed right-sided rib fractures. There are postop changes of posterior instrumented fusion in the lower thoracic spine. IMPRESSION: Stable CT chest without evidence of pulmonary metastatic disease or thoracic lymphadenopathy. CT abdomen and pelvis: FINDINGS: The previously described low-density lesions in the liver continue to demonstrate decrease in size. The more posterior lesion in the dome of the right lobe now measures 1.9 cm compared with 2.6 cm. Just anterior to this, a low-density lesion measures approximately 1.6 cm compared with 2.6 cm. A left lobe lesion measures 1.7 cm compared with 2.3 cm. No new liver mass is identified. The gallbladder appears to contain a small stone. The pancreas and spleen are unremarkable. No adrenal mass is detected. Kidneys are unremarkable. There is a filter within the inferior vena cava. Small lymph nodes in the central retroperitoneum appears stable. The visualized small and large bowel loops are normal caliber. No obstruction is seen. Bilateral inguinal lymph nodes are stable. No iliac lymphadenopathy is detected. The bladder and prostate appear stable. There appeared to be postop changes of right hemicolectomy. IMPRESSION: 1. Continued decrease in size of liver lesions when compared with prior CT from 11/30/2017. No new liver lesion or abdominal or pelvic lymphadenopathy is detected. Dictated by: Dictated on workstation # [id number]
== END ==
LOC: RAD 12:11
PROVIDERS: ATTEND Internal Medicine Hematology & Oncology
DX: C18.2 Malignant neoplasm of ascending colon (principal); C78.7 Secondary malignant neoplasm of liver and intrahepatic bile duct
CPT/HCPCS: 71260; 74178

== ENCOUNTER 2018-05-17 10:40 | Outpatient (RCR) | payer MEDICARE, OTHER ==
[2018-03-08 09:59] LABS: BASOPHILS % (AUTO) 1 % (0-10); EOSINOPHILS # (AUTO) 0.3 10^3/uL (0.0-0.3); EOSINOPHILS % (AUTO) 4 % (0-10); HEMATOCRIT 37 % (40-54); HEMOGLOBIN 12.1 G/DL (13.3-17.7); LYMPHOCYTES # (AUTO) 2.7 X 10^3 (1.0-4.0); LYMPHOCYTES % (AUTO) 38 % (12-44); MEAN CORPUSCULAR HGB CONC 33 G/DL (32-36); MEAN CORPUSCULAR VOLUME 81 FL (80-99); MEAN PLATELET VOLUME 9.4 FL (7.4-10.4); MONOCYTES # (AUTO) 1.1 X 10^3 (0.0-1.0); MONOCYTES % (AUTO) 15 % (0-12); NEUTROPHILS % (AUTO) 42 % (42-75); PLATELET COUNT 205 10^3/uL (130-400); RED BLOOD COUNT 4.57 10^6/uL (4.35-5.85); RED CELL DISTRIBUTION WIDTH 21.6 % (10.0-14.5); WHITE BLOOD COUNT 7.2 10^3/uL (4.3-11.0)
[2018-03-08 10:00] LABS: MEAN CORPUSCULAR HEMOGLOBIN 26 PG (25-34)
[2018-03-08 10:18] LABS: ALANINE AMINOTRANSFERASE 26 U/L (0-55); ALBUMIN 4.1 GM/DL (3.2-4.5); ALKALINE PHOSPHATASE 72 U/L (40-136); BILIRUBIN,TOTAL 0.3 MG/DL (0.1-1.0); BUN/CREATININE RATIO 23; CARBON DIOXIDE 29 MMOL/L (21-32); CHLORIDE 105 MMOL/L (98-107); CREATININE SERUM 0.86 MG/DL (0.60-1.30); GFR ESTIMATED > 60; GLUCOSE 107 MG/DL (70-105); MAGNESIUM 1.8 MG/DL (1.8-2.4); SODIUM 139 MMOL/L (135-145)
[2018-03-15 10:08] LABS: BASOPHILS % (AUTO) 1 % (0-10); EOSINOPHILS # (AUTO) 0.3 10^3/uL (0.0-0.3); EOSINOPHILS % (AUTO) 4 % (0-10); HEMATOCRIT 38 % (40-54); HEMOGLOBIN 12.4 G/DL (13.3-17.7); LYMPHOCYTES # (AUTO) 3.3 X 10^3 (1.0-4.0); LYMPHOCYTES % (AUTO) 53 % (12-44); MEAN CORPUSCULAR HEMOGLOBIN 26 PG (25-34); MEAN CORPUSCULAR HGB CONC 32 G/DL (32-36); MEAN CORPUSCULAR VOLUME 82 FL (80-99); MEAN PLATELET VOLUME 9.3 FL (7.4-10.4); MONOCYTES # (AUTO) 0.7 X 10^3 (0.0-1.0); MONOCYTES % (AUTO) 11 % (0-12); NEUTROPHILS % (AUTO) 31 % (42-75); PLATELET COUNT 239 10^3/uL (130-400); RED BLOOD COUNT 4.71 10^6/uL (4.35-5.85); WHITE BLOOD COUNT 6.3 10^3/uL (4.3-11.0)
[2018-03-15 10:29] LABS: BUN/CREATININE RATIO 16; CALCIUM 9.2 MG/DL (8.5-10.1); CARBON DIOXIDE 27 MMOL/L (21-32); CHLORIDE 103 MMOL/L (98-107); CREATININE SERUM 0.97 MG/DL (0.60-1.30); GFR ESTIMATED > 60; GLUCOSE 115 MG/DL (70-105); POTASSIUM 4.3 MMOL/L (3.6-5.0); SODIUM 138 MMOL/L (135-145)
[2018-03-22 09:09] LABS: BASOPHILS % (AUTO) 1 % (0-10); EOSINOPHILS # (AUTO) 0.2 10^3/uL (0.0-0.3); EOSINOPHILS % (AUTO) 3 % (0-10); HEMATOCRIT 40 % (40-54); HEMOGLOBIN 13.1 G/DL (13.3-17.7); LYMPHOCYTES # (AUTO) 2.7 X 10^3 (1.0-4.0); LYMPHOCYTES % (AUTO) 42 % (12-44); MEAN CORPUSCULAR HEMOGLOBIN 27 PG (25-34); MEAN CORPUSCULAR HGB CONC 33 G/DL (32-36); MEAN CORPUSCULAR VOLUME 81 FL (80-99); MEAN PLATELET VOLUME 9.7 FL (7.4-10.4); MONOCYTES # (AUTO) 0.7 X 10^3 (0.0-1.0); MONOCYTES % (AUTO) 10 % (0-12); NEUTROPHILS # (AUTO) 2.8 X 10^3 (1.8-7.8); NEUTROPHILS % (AUTO) 44 % (42-75); PLATELET COUNT 225 10^3/uL (130-400); RED BLOOD COUNT 4.94 10^6/uL (4.35-5.85); WHITE BLOOD COUNT 6.4 10^3/uL (4.3-11.0)
[2018-03-22 09:35] LABS: ALANINE AMINOTRANSFERASE 26 U/L (0-55); ALBUMIN 4.3 GM/DL (3.2-4.5); ALKALINE PHOSPHATASE 81 U/L (40-136); BILIRUBIN,TOTAL 0.4 MG/DL (0.1-1.0); BUN/CREATININE RATIO 20; CALCIUM 9.3 MG/DL (8.5-10.1); CARBON DIOXIDE 22 MMOL/L (21-32); CHLORIDE 106 MMOL/L (98-107); CREATININE SERUM 0.82 MG/DL (0.60-1.30); GFR ESTIMATED > 60; GLUCOSE 104 MG/DL (70-105); POTASSIUM 3.8 MMOL/L (3.6-5.0); SODIUM 138 MMOL/L (135-145); TOTAL PROTEIN 6.7 GM/DL (6.4-8.2)
[2018-03-29 10:40] LABS: BASOPHILS % (AUTO) 1 % (0-10); EOSINOPHILS # (AUTO) 0.3 10^3/uL (0.0-0.3); EOSINOPHILS % (AUTO) 4 % (0-10); HEMATOCRIT 39 % (40-54); HEMOGLOBIN 12.7 G/DL (13.3-17.7); LYMPHOCYTES # (AUTO) 2.9 X 10^3 (1.0-4.0); LYMPHOCYTES % (AUTO) 45 % (12-44); MEAN CORPUSCULAR HEMOGLOBIN 27 PG (25-34); MEAN CORPUSCULAR HGB CONC 32 G/DL (32-36); MEAN CORPUSCULAR VOLUME 82 FL (80-99); MEAN PLATELET VOLUME 9.7 FL (7.4-10.4); MONOCYTES # (AUTO) 0.7 X 10^3 (0.0-1.0); MONOCYTES % (AUTO) 11 % (0-12); NEUTROPHILS # (AUTO) 2.5 X 10^3 (1.8-7.8); NEUTROPHILS % (AUTO) 39 % (42-75); PLATELET COUNT 236 10^3/uL (130-400); RED BLOOD COUNT 4.76 10^6/uL (4.35-5.85); RED CELL DISTRIBUTION WIDTH 22.9 % (10.0-14.5); WHITE BLOOD COUNT 6.4 10^3/uL (4.3-11.0)
[2018-03-29 10:59] LABS: BUN/CREATININE RATIO 13; CALCIUM 9.8 MG/DL (8.5-10.1); CARBON DIOXIDE 29 MMOL/L (21-32); CHLORIDE 101 MMOL/L (98-107); CREATININE SERUM 1.21 MG/DL (0.60-1.30); GFR ESTIMATED > 60; GLUCOSE 125 MG/DL (70-105); POTASSIUM 4.3 MMOL/L (3.6-5.0); SODIUM 139 MMOL/L (135-145)
[2018-04-05 11:07] LABS: BASOPHILS % (AUTO) 1 % (0-10); EOSINOPHILS # (AUTO) 0.2 10^3/uL (0.0-0.3); EOSINOPHILS % (AUTO) 4 % (0-10); HEMATOCRIT 38 % (40-54); HEMOGLOBIN 12.5 G/DL (13.3-17.7); LYMPHOCYTES # (AUTO) 2.8 X 10^3 (1.0-4.0); LYMPHOCYTES % (AUTO) 42 % (12-44); MEAN CORPUSCULAR HEMOGLOBIN 27 PG (25-34); MEAN CORPUSCULAR HGB CONC 33 G/DL (32-36); MEAN CORPUSCULAR VOLUME 83 FL (80-99); MEAN PLATELET VOLUME 9.9 FL (7.4-10.4); MONOCYTES # (AUTO) 0.8 X 10^3 (0.0-1.0); MONOCYTES % (AUTO) 12 % (0-12); NEUTROPHILS # (AUTO) 2.8 X 10^3 (1.8-7.8); NEUTROPHILS % (AUTO) 41 % (42-75); PLATELET COUNT 206 10^3/uL (130-400); RED BLOOD COUNT 4.62 10^6/uL (4.35-5.85); WHITE BLOOD COUNT 6.6 10^3/uL (4.3-11.0)
[2018-04-05 11:23] LABS: ALANINE AMINOTRANSFERASE 30 U/L (0-55); ALBUMIN 4.1 GM/DL (3.2-4.5); ALKALINE PHOSPHATASE 77 U/L (40-136); BILIRUBIN,TOTAL 0.4 MG/DL (0.1-1.0); BUN/CREATININE RATIO 15; CALCIUM 9.3 MG/DL (8.5-10.1); CARBON DIOXIDE 28 MMOL/L (21-32); CHLORIDE 102 MMOL/L (98-107); GFR ESTIMATED > 60; GLUCOSE 119 MG/DL (70-105); MAGNESIUM 1.9 MG/DL (1.8-2.4); POTASSIUM 4.1 MMOL/L (3.6-5.0); SODIUM 138 MMOL/L (135-145); TOTAL PROTEIN 6.9 GM/DL (6.4-8.2)
[2018-04-19 10:14] LABS: BASOPHILS # (AUTO) 0.1 10^3/uL (0.0-0.1); BASOPHILS % (AUTO) 1 % (0-10); EOSINOPHILS # (AUTO) 0.3 10^3/uL (0.0-0.3); EOSINOPHILS % (AUTO) 4 % (0-10); HEMATOCRIT 38 % (40-54); HEMOGLOBIN 12.3 G/DL (13.3-17.7); LYMPHOCYTES # (AUTO) 2.9 X 10^3 (1.0-4.0); LYMPHOCYTES % (AUTO) 39 % (12-44); MEAN CORPUSCULAR HEMOGLOBIN 28 PG (25-34); MEAN CORPUSCULAR HGB CONC 33 G/DL (32-36); MEAN CORPUSCULAR VOLUME 85 FL (80-99); MEAN PLATELET VOLUME 9.6 FL (7.4-10.4); MONOCYTES # (AUTO) 0.8 X 10^3 (0.0-1.0); MONOCYTES % (AUTO) 10 % (0-12); NEUTROPHILS # (AUTO) 3.5 X 10^3 (1.8-7.8); NEUTROPHILS % (AUTO) 46 % (42-75); PLATELET COUNT 185 10^3/uL (130-400); RED BLOOD COUNT 4.46 10^6/uL (4.35-5.85); RED CELL DISTRIBUTION WIDTH 22.1 % (10.0-14.5); WHITE BLOOD COUNT 7.5 10^3/uL (4.3-11.0)
[2018-04-19 10:38] LABS: BUN/CREATININE RATIO 13; CARBON DIOXIDE 24 MMOL/L (21-32); CHLORIDE 109 MMOL/L (98-107); CREATININE SERUM 0.97 MG/DL (0.60-1.30); POTASSIUM 4.2 MMOL/L (3.6-5.0); SODIUM 140 MMOL/L (135-145)
[2018-04-19 10:39] LABS: ALANINE AMINOTRANSFERASE 22 U/L (0-55); ALBUMIN 3.9 GM/DL (3.2-4.5); ALKALINE PHOSPHATASE 81 U/L (40-136); BILIRUBIN,TOTAL 0.4 MG/DL (0.1-1.0); CALCIUM 8.7 MG/DL (8.5-10.1); GFR ESTIMATED > 60; GLUCOSE 100 MG/DL (70-105); TOTAL PROTEIN 6.5 GM/DL (6.4-8.2)
[2018-05-03 09:31] LABS: BILIRUBIN,URINE NEGATIVE (NEGATIVE); CLARITY,URINE CLEAR; COLOR,URINE YELLOW; GLUCOSE, URINE (UA) NEGATIVE (NEGATIVE); KETONES,URINE NEGATIVE (NEGATIVE); LEUKOCYTE ESTERASE ,URINE NEGATIVE (NEGATIVE); NITRITE,URINE NEGATIVE (NEGATIVE); PH,URINE 6 (5-9); PROTEIN,URINE NEGATIVE (NEGATIVE); UROBILINOGEN,URINE NORMAL (NORMAL)
[2018-05-03 09:41] LABS: BASOPHILS % (AUTO) 1 % (0-10); EOSINOPHILS # (AUTO) 0.4 10^3/uL (0.0-0.3); EOSINOPHILS % (AUTO) 6 % (0-10); HEMATOCRIT 39 % (40-54); HEMOGLOBIN 12.8 G/DL (13.3-17.7); LYMPHOCYTES # (AUTO) 2.7 X 10^3 (1.0-4.0); LYMPHOCYTES % (AUTO) 43 % (12-44); MEAN CORPUSCULAR HEMOGLOBIN 28 PG (25-34); MEAN CORPUSCULAR HGB CONC 33 G/DL (32-36); MEAN CORPUSCULAR VOLUME 87 FL (80-99); MEAN PLATELET VOLUME 9.8 FL (7.4-10.4); MONOCYTES # (AUTO) 0.8 X 10^3 (0.0-1.0); MONOCYTES % (AUTO) 12 % (0-12); NEUTROPHILS # (AUTO) 2.4 X 10^3 (1.8-7.8); NEUTROPHILS % (AUTO) 38 % (42-75); PLATELET COUNT 191 10^3/uL (130-400); RED BLOOD COUNT 4.51 10^6/uL (4.35-5.85); WHITE BLOOD COUNT 6.3 10^3/uL (4.3-11.0)
[2018-05-03 10:05] LABS: ALANINE AMINOTRANSFERASE 20 U/L (0-55); ALBUMIN 4.1 GM/DL (3.2-4.5); ALKALINE PHOSPHATASE 78 U/L (40-136); BILIRUBIN,TOTAL 0.4 MG/DL (0.1-1.0); BUN/CREATININE RATIO 14; CARBON DIOXIDE 27 MMOL/L (21-32); CHLORIDE 106 MMOL/L (98-107); CREATININE SERUM 0.83 MG/DL (0.60-1.30); GFR ESTIMATED > 60; GLUCOSE 94 MG/DL (70-105); POTASSIUM 4.4 MMOL/L (3.6-5.0); SODIUM 139 MMOL/L (135-145); TOTAL PROTEIN 6.9 GM/DL (6.4-8.2)
[~2018-05-17] VITALS: Ht 165.1 cm; Wt 112.9 kg
[~2018-05-17 10:40] MED LIST changes: +ATROPINE INJ 0.4 MG/ML SDV (CANCER CENTER) INJ SCH; -BARIUM SUSPENSION 2.1% (VANILLA SILQ) 450 ML PO ONE; +BEVACIZUMAB IV SCH; +FLUOROURACIL 0.6 GM in SYRINGE-IVPB 1 SYRINGE IV SCH; +FLUOROURACIL IV SCH; +FOSAPREPITANT DIMEGLUMINE 150 MG in NS (IVPB) CANCER CENTER ONLY 150 ML IV SCH; +HYDROcodone/APAP 10 MG/325 MG (LORTAB) TAB PO ONE; -IOHEXOL 350 MG/ML 100 ML (OMNIPAQUE 350) VIAL IV ONE; +IRINOTECAN HCL 300 MG in D5W 250 ML IVPB (CANCER CTR) 250 ML IV SCH; +LEUCOVORIN CALCIUM 600 MG in D5W 250 ML IVPB (CANCER CTR) 250 ML IV SCH; -NS 250 ML (IVPB) BAG IV ONE; +NS IV 1000 ML (CANCER CTR) 1,000 ML IV SCH; +NS IV SCH; +ONDANSETRON 8 MG, DEXAMETHASONE 4 MG/NS 50 ML IVPB (Cancer Ctr) IV SCH; +ONDANSETRON MDV (CANCER CENTER 16 MG, DEXAMETHASONE INJ (CANCER CTR) 4 MG in NS (IVPB) ... IV SCH; +PALONOSETRON HCL 0.25 MG, DEXAMETHASONE PF INJ (CANCER C 10 MG in NS (IVPB) CANCER CENT... IV PRN; +[UNRECOGNIZED DRUG - OTHER] IV SCH
[2018-05-17 11:08] LABS: BASOPHILS # (AUTO) 0.1 10^3/uL (0.0-0.1); BASOPHILS % (AUTO) 1 % (0-10); EOSINOPHILS # (AUTO) 0.3 10^3/uL (0.0-0.3); EOSINOPHILS % (AUTO) 4 % (0-10); HEMATOCRIT 42 % (40-54); HEMOGLOBIN 13.4 G/DL (13.3-17.7); LYMPHOCYTES # (AUTO) 3.4 X 10^3 (1.0-4.0); LYMPHOCYTES % (AUTO) 37 % (12-44); MEAN CORPUSCULAR HEMOGLOBIN 29 PG (25-34); MEAN CORPUSCULAR HGB CONC 32 G/DL (32-36); MEAN CORPUSCULAR VOLUME 89 FL (80-99); MEAN PLATELET VOLUME 9.8 FL (7.4-10.4); MONOCYTES # (AUTO) 0.9 X 10^3 (0.0-1.0); MONOCYTES % (AUTO) 10 % (0-12); NEUTROPHILS # (AUTO) 4.4 X 10^3 (1.8-7.8); NEUTROPHILS % (AUTO) 49 % (42-75); PLATELET COUNT 192 10^3/uL (130-400); RED BLOOD COUNT 4.69 10^6/uL (4.35-5.85); RED CELL DISTRIBUTION WIDTH 19.7 % (10.0-14.5); WHITE BLOOD COUNT 9.1 10^3/uL (4.3-11.0)
[2018-05-17 11:30] LABS: ALANINE AMINOTRANSFERASE 19 U/L (0-55); ALBUMIN 4.2 GM/DL (3.2-4.5); ALKALINE PHOSPHATASE 73 U/L (40-136); BILIRUBIN,TOTAL 0.4 MG/DL (0.1-1.0); BUN/CREATININE RATIO 17; CALCIUM 9.3 MG/DL (8.5-10.1); CARBON DIOXIDE 25 MMOL/L (21-32); CHLORIDE 107 MMOL/L (98-107); CREATININE SERUM 0.98 MG/DL (0.60-1.30); GFR ESTIMATED > 60; GLUCOSE 87 MG/DL (70-105); POTASSIUM 4.5 MMOL/L (3.6-5.0); SODIUM 140 MMOL/L (135-145)
[2018-05-17] MEDS ORDERED: ONDANSETRON 8 MG, DEXAMETHASONE 4 MG/NS 50 ML IVPB (Cancer Ctr) IV SCH ×3 (11:45)
== END 2018-06-06 | disposition home or self-care (01) ==
LOC: ONC 10:40
PROVIDERS: ATTEND Internal Medicine Hematology & Oncology
DX: Z51.11 Encounter for antineoplastic chemotherapy (principal); C18.0 Malignant neoplasm of cecum; C18.2 Malignant neoplasm of ascending colon; C78.7 Secondary malignant neoplasm of liver and intrahepatic bile duct; C77.2 Secondary and unspecified malignant neoplasm of intra-abdominal lymph nodes; F17.210 Nicotine dependence, cigarettes, uncomplicated; E66.01 Morbid (severe) obesity due to excess calories; Z68.41 Body mass index [BMI] 40.0-44.9, adult; Z79.899 Other long term (current) drug therapy; Z90.49 Acquired absence of other specified parts of digestive tract
CPT/HCPCS: 36415; 36591; 80048; 80053; 81002; 82378; 83735; 85025; 96367; 96368; 96374; 96375; 96409; 96411; 96413; 96415

== ENCOUNTER → 2018-06-26 | Outpatient (CLI) | payer MEDICARE, OTHER ==
[~2018-06-26] MED LIST changes: -ATROPINE INJ 0.4 MG/ML SDV (CANCER CENTER) INJ SCH; +BARIUM SUSPENSION 2.1% (VANILLA SILQ) 450 ML PO ONE; -BEVACIZUMAB IV SCH; +CATHETER FLUSH 10 ML SYR IV PRN; -FLUOROURACIL 0.6 GM in SYRINGE-IVPB 1 SYRINGE IV SCH; -FLUOROURACIL IV SCH; -FOSAPREPITANT DIMEGLUMINE 150 MG in NS (IVPB) CANCER CENTER ONLY 150 ML IV SCH; -HYDROcodone/APAP 10 MG/325 MG (LORTAB) TAB PO ONE; +IOHEXOL 350 MG/ML 100 ML (OMNIPAQUE 350) VIAL IV ONE; -IRINOTECAN HCL 300 MG in D5W 250 ML IVPB (CANCER CTR) 250 ML IV SCH; -LEUCOVORIN CALCIUM 600 MG in D5W 250 ML IVPB (CANCER CTR) 250 ML IV SCH; +NS 100 ML (IVPB) BAG IV ONE; -NS IV 1000 ML (CANCER CTR) 1,000 ML IV SCH; -NS IV SCH; -ONDANSETRON 8 MG, DEXAMETHASONE 4 MG/NS 50 ML IVPB (Cancer Ctr) IV SCH; -ONDANSETRON MDV (CANCER CENTER 16 MG, DEXAMETHASONE INJ (CANCER CTR) 4 MG in NS (IVPB) ... IV SCH; -PALONOSETRON HCL 0.25 MG, DEXAMETHASONE PF INJ (CANCER C 10 MG in NS (IVPB) CANCER CENT... IV PRN; -[UNRECOGNIZED DRUG - OTHER] IV SCH
--- NOTE | 2018-06-26 13:51 | Diagnostic Imaging Report ---
PROCEDURE: CT chest with contrast, CT abdomen and pelvis with and without contrast. TECHNIQUE: Pre and post intravenous contrast axial imaging of the abdomen and pelvis and post contrast axial imaging of the chest were performed. INDICATION: History of colon cancer with metastatic disease to the liver. Followup. COMPARISON: 03/29/2018. FINDINGS: CT CHEST: Evaluation of the lung lynch demonstrates punctate micronodules associated with the major fissure on the right measuring approximately 2-3 mm in diameter (image 26, series 3). This is stable compared to 03/29/2018. Otherwise, no new suspicious pulmonary nodules or masses are identified on either side. There is no focal consolidation, pleural effusion, nor pneumothorax. Cardiomediastinal structures show normal heart size. There is no large pericardial effusion. No pathologically enlarged or morphologically abnormal adenopathy is seen within the mediastinum, lolly, nor axillae. Indwelling right-sided internal jugular Port-A-Cath is identified with tip in the low SVC. Bony structures show multiple nonacute healed bilateral rib fractures. No suspicious lytic or blastic bony lesions are identified. CT ABDOMEN: Postsurgical changes of previous right hemicolectomy are identified. Proximal small bowel loops are nondistended. Prominent appearing, yet subcentimeter retroperitoneal lymph nodes are noted within the upper abdomen. These are stable when compared to prior exam. No abnormal mesenteric adenopathy is identified. Indwelling IVC filter is noted and is in appropriate position. Multiple hypodense lesions are again identified scattered throughout the liver. Reference lesion within segment of the liver appears larger and more conspicuous on today's exam measuring approximately 1.5 cm, in comparison to 1 cm previously. Otherwise, the lesions within the dome of the right lobe of the liver and within segment III are all stable when compared to prior exam. No new hepatic lesions are identified. The kidneys, adrenal glands, spleen, and pancreas have a normal CT appearance. Note is made of cholelithiasis. There is no loculated fluid collection, free fluid, nor free air within the abdomen. Bony structures show no acute abnormalities. CT PELVIS: Prominent right iliac chain lymph nodes are identified. Reference lymph node measures 2.1 x 1.3 cm. This is stable compared to 2.3 x 1.4 cm previously. There is mild prostatomegaly. Urinary bladder is grossly unremarkable. There is no loculated fluid collection, free fluid, nor free air within the pelvis. Osseous structures show no acute abnormalities. IMPRESSION: 1. Stable punctate micronodule associated with the major fissure on the right. Otherwise, no evidence of metastatic or malignant disease within the chest. 2. Mixed interval response in regards to multiple hypoenhancing lesions within the liver. Again, the lesions in the dome and left lobe appear stable, but lesion within segment appears to have increased in size when compared to prior exam. Given that this lesion is essentially absent on prior exams dated 11/30/2017 and 08/09/2017, this should be considered true interval progression until proven otherwise. 3. Prominent, yet stable right iliac chain lymph nodes and multiple prominent appearing, yet stable subcentimeter superior retroperitoneal lymph nodes in the upper abdomen. 4. Cholelithiasis. Dictated by: Dictated on workstation # [id number]
== END ==
LOC: RAD 11:36
PROVIDERS: ATTEND Nurse Practitioner Adult Health
DX: C78.7 Secondary malignant neoplasm of liver and intrahepatic bile duct (principal); C77.2 Secondary and unspecified malignant neoplasm of intra-abdominal lymph nodes; C18.2 Malignant neoplasm of ascending colon; K80.20 Calculus of gallbladder without cholecystitis without obstruction; R91.8 Other nonspecific abnormal finding of lung field; Z95.828 Presence of other vascular implants and grafts
CPT/HCPCS: 71260; 74178

== ENCOUNTER 2018-07-19 10:03 | Outpatient (RCR) | payer MEDICARE, OTHER ==
[2018-06-07 10:23] LABS: BASOPHILS # (AUTO) 0.1 10^3/uL (0.0-0.1); BASOPHILS % (AUTO) 1 % (0-10); EOSINOPHILS # (AUTO) 0.3 10^3/uL (0.0-0.3); EOSINOPHILS % (AUTO) 5 % (0-10); HEMATOCRIT 41 % (40-54); HEMOGLOBIN 13.8 G/DL (13.3-17.7); LYMPHOCYTES # (AUTO) 2.3 X 10^3 (1.0-4.0); LYMPHOCYTES % (AUTO) 42 % (12-44); MEAN CORPUSCULAR HEMOGLOBIN 30 PG (25-34); MEAN CORPUSCULAR HGB CONC 34 G/DL (32-36); MEAN CORPUSCULAR VOLUME 89 FL (80-99); MEAN PLATELET VOLUME 9.3 FL (7.4-10.4); MONOCYTES # (AUTO) 0.6 X 10^3 (0.0-1.0); MONOCYTES % (AUTO) 10 % (0-12); NEUTROPHILS # (AUTO) 2.4 X 10^3 (1.8-7.8); NEUTROPHILS % (AUTO) 43 % (42-75); PLATELET COUNT 243 10^3/uL (130-400); RED BLOOD COUNT 4.57 10^6/uL (4.35-5.85); RED CELL DISTRIBUTION WIDTH 17.5 % (10.0-14.5); WHITE BLOOD COUNT 5.5 10^3/uL (4.3-11.0)
[2018-06-07 10:41] LABS: ALANINE AMINOTRANSFERASE 22 U/L (0-55); ALBUMIN 4.1 GM/DL (3.2-4.5); ALKALINE PHOSPHATASE 78 U/L (40-136); BILIRUBIN,TOTAL 0.4 MG/DL (0.1-1.0); BUN/CREATININE RATIO 10; CALCIUM 9.3 MG/DL (8.5-10.1); CARBON DIOXIDE 27 MMOL/L (21-32); CHLORIDE 104 MMOL/L (98-107); CREATININE SERUM 0.93 MG/DL (0.60-1.30); GFR ESTIMATED > 60; GLUCOSE 103 MG/DL (70-105); POTASSIUM 4.3 MMOL/L (3.6-5.0); SODIUM 138 MMOL/L (135-145)
[2018-06-21 13:27] LABS: BASOPHILS % (AUTO) 1 % (0-10); EOSINOPHILS # (AUTO) 0.3 10^3/uL (0.0-0.3); EOSINOPHILS % (AUTO) 4 % (0-10); HEMATOCRIT 42 % (40-54); HEMOGLOBIN 13.6 G/DL (13.3-17.7); LYMPHOCYTES # (AUTO) 2.6 X 10^3 (1.0-4.0); LYMPHOCYTES % (AUTO) 38 % (12-44); MEAN CORPUSCULAR HEMOGLOBIN 29 PG (25-34); MEAN CORPUSCULAR HGB CONC 33 G/DL (32-36); MEAN CORPUSCULAR VOLUME 89 FL (80-99); MEAN PLATELET VOLUME 9.7 FL (7.4-10.4); MONOCYTES # (AUTO) 0.7 X 10^3 (0.0-1.0); MONOCYTES % (AUTO) 9 % (0-12); NEUTROPHILS # (AUTO) 3.3 X 10^3 (1.8-7.8); NEUTROPHILS % (AUTO) 48 % (42-75); PLATELET COUNT 169 10^3/uL (130-400); RED BLOOD COUNT 4.68 10^6/uL (4.35-5.85); RED CELL DISTRIBUTION WIDTH 17.7 % (10.0-14.5)
[2018-06-21 13:29] LABS: BILIRUBIN,URINE NEGATIVE (NEGATIVE); CLARITY,URINE CLEAR; COLOR,URINE YELLOW; GLUCOSE, URINE (UA) NEGATIVE (NEGATIVE); KETONES,URINE NEGATIVE (NEGATIVE); LEUKOCYTE ESTERASE ,URINE 1+ (NEGATIVE); NITRITE,URINE NEGATIVE (NEGATIVE); PH,URINE 5 (5-9); PROTEIN,URINE NEGATIVE (NEGATIVE); UROBILINOGEN,URINE NORMAL (NORMAL)
[2018-06-21 13:45] LABS: BUN/CREATININE RATIO 15; CARBON DIOXIDE 23 MMOL/L (21-32); CHLORIDE 107 MMOL/L (98-107); CREATININE SERUM 0.87 MG/DL (0.60-1.30); GFR ESTIMATED > 60; POTASSIUM 4.3 MMOL/L (3.6-5.0); SODIUM 139 MMOL/L (135-145)
[2018-06-21 13:46] LABS: ALANINE AMINOTRANSFERASE 23 U/L (0-55); ALBUMIN 4.1 GM/DL (3.2-4.5); ALKALINE PHOSPHATASE 71 U/L (40-136); BILIRUBIN,TOTAL 0.4 MG/DL (0.1-1.0); CALCIUM 8.8 MG/DL (8.5-10.1); GLUCOSE 103 MG/DL (70-105); TOTAL PROTEIN 6.8 GM/DL (6.4-8.2)
[2018-07-05 09:11] LABS: BASOPHILS % (AUTO) 1 % (0-10); EOSINOPHILS # (AUTO) 0.3 10^3/uL (0.0-0.3); EOSINOPHILS % (AUTO) 5 % (0-10); HEMATOCRIT 41 % (40-54); HEMOGLOBIN 13.3 G/DL (13.3-17.7); LYMPHOCYTES # (AUTO) 1.9 X 10^3 (1.0-4.0); LYMPHOCYTES % (AUTO) 31 % (12-44); MEAN CORPUSCULAR HEMOGLOBIN 29 PG (25-34); MEAN CORPUSCULAR HGB CONC 33 G/DL (32-36); MEAN CORPUSCULAR VOLUME 89 FL (80-99); MEAN PLATELET VOLUME 9.9 FL (7.4-10.4); MONOCYTES # (AUTO) 0.7 X 10^3 (0.0-1.0); MONOCYTES % (AUTO) 12 % (0-12); NEUTROPHILS # (AUTO) 3.1 X 10^3 (1.8-7.8); NEUTROPHILS % (AUTO) 53 % (42-75); PLATELET COUNT 178 10^3/uL (130-400); RED BLOOD COUNT 4.54 10^6/uL (4.35-5.85); RED CELL DISTRIBUTION WIDTH 16.9 % (10.0-14.5)
[2018-07-05 09:32] LABS: ALANINE AMINOTRANSFERASE 18 U/L (0-55); ALKALINE PHOSPHATASE 67 U/L (40-136); BILIRUBIN,TOTAL 0.4 MG/DL (0.1-1.0); BUN/CREATININE RATIO 13; CALCIUM 9.4 MG/DL (8.5-10.1); CARBON DIOXIDE 25 MMOL/L (21-32); CHLORIDE 105 MMOL/L (98-107); CREATININE SERUM 0.84 MG/DL (0.60-1.30); GFR ESTIMATED > 60; GLUCOSE 116 MG/DL (70-105); POTASSIUM 3.8 MMOL/L (3.6-5.0); SODIUM 139 MMOL/L (135-145); TOTAL PROTEIN 6.7 GM/DL (6.4-8.2)
[2018-07-12 13:00] LABS: BASOPHILS # (AUTO) 0.1 10^3/uL (0.0-0.1); BASOPHILS % (AUTO) 1 % (0-10); EOSINOPHILS # (AUTO) 0.2 10^3/uL (0.0-0.3); EOSINOPHILS % (AUTO) 4 % (0-10); HEMATOCRIT 42 % (40-54); HEMOGLOBIN 13.8 G/DL (13.3-17.7); LYMPHOCYTES # (AUTO) 2.7 X 10^3 (1.0-4.0); LYMPHOCYTES % (AUTO) 45 % (12-44); MEAN CORPUSCULAR HEMOGLOBIN 29 PG (25-34); MEAN CORPUSCULAR HGB CONC 33 G/DL (32-36); MEAN CORPUSCULAR VOLUME 89 FL (80-99); MEAN PLATELET VOLUME 9.7 FL (7.4-10.4); MONOCYTES # (AUTO) 0.6 X 10^3 (0.0-1.0); MONOCYTES % (AUTO) 10 % (0-12); NEUTROPHILS # (AUTO) 2.5 X 10^3 (1.8-7.8); NEUTROPHILS % (AUTO) 40 % (42-75); PLATELET COUNT 207 10^3/uL (130-400); RED BLOOD COUNT 4.76 10^6/uL (4.35-5.85); WHITE BLOOD COUNT 6.1 10^3/uL (4.3-11.0)
[2018-07-12 13:19] LABS: BUN/CREATININE RATIO 14; CARBON DIOXIDE 21 MMOL/L (21-32); CHLORIDE 108 MMOL/L (98-107); CREATININE SERUM 0.86 MG/DL (0.60-1.30); GFR ESTIMATED > 60; GLUCOSE 93 MG/DL (70-105); POTASSIUM 3.9 MMOL/L (3.6-5.0); SODIUM 137 MMOL/L (135-145)
[~2018-07-19] VITALS: Ht 165.1 cm; Wt 110.7 kg
[~2018-07-19 10:03] MED LIST changes: +ALTEPLASE 2 MG (CATHFLO) CANCER CENTER IV ONE; -AMLO10TA2 PO; +AMLO10TA6 PO; +ATROPINE INJ 0.4 MG/ML SDV (CANCER CENTER) INJ SCH; -BARIUM SUSPENSION 2.1% (VANILLA SILQ) 450 ML PO ONE; +BEVACIZUMAB IV SCH; -CATHETER FLUSH 10 ML SYR IV PRN; +FLUOROURACIL 0.6 GM in SYRINGE-IVPB 1 SYRINGE IV SCH; +FLUOROURACIL IV SCH; +FOSAPREPITANT DIMEGLUMINE 150 MG in NS (IVPB) CANCER CENTER ONLY 150 ML IV SCH; -IOHEXOL 350 MG/ML 100 ML (OMNIPAQUE 350) VIAL IV ONE; +IRINOTECAN HCL 300 MG in D5W 250 ML IVPB (CANCER CTR) 250 ML IV SCH; +LEUCOVORIN CALCIUM 600 MG in D5W 250 ML IVPB (CANCER CTR) 250 ML IV SCH; -NS 100 ML (IVPB) BAG IV ONE; +NS IV 1000 ML (CANCER CTR) 1,000 ML IV SCH; +NS IV SCH; +ONDANSETRON 8 MG, DEXAMETHASONE 4 MG/NS 50 ML IVPB (Cancer Ctr) IV SCH; -OXYC-197 PO; +OXYC1TAB87 PO; +PALONOSETRON HCL 0.25 MG, DEXAMETHASONE INJECTION 10 MG in NS (IVPB) CANCER CENTER 50 ML IV SCH; +[UNRECOGNIZED DRUG - OTHER] IV SCH; +oxyCODONE/APAP 10/325MG (PERCOCET 10) TABLET PO ONE
[2018-07-19 10:20] LABS: BASOPHILS % (AUTO) 1 % (0-10); EOSINOPHILS # (AUTO) 0.3 10^3/uL (0.0-0.3); EOSINOPHILS % (AUTO) 4 % (0-10); HEMATOCRIT 42 % (40-54); HEMOGLOBIN 13.6 G/DL (13.3-17.7); LYMPHOCYTES # (AUTO) 3.3 X 10^3 (1.0-4.0); LYMPHOCYTES % (AUTO) 54 % (12-44); MEAN CORPUSCULAR HEMOGLOBIN 29 PG (25-34); MEAN CORPUSCULAR HGB CONC 33 G/DL (32-36); MEAN CORPUSCULAR VOLUME 89 FL (80-99); MEAN PLATELET VOLUME 10.2 FL (7.4-10.4); MONOCYTES # (AUTO) 0.4 X 10^3 (0.0-1.0); MONOCYTES % (AUTO) 7 % (0-12); NEUTROPHILS # (AUTO) 2.2 X 10^3 (1.8-7.8); NEUTROPHILS % (AUTO) 35 % (42-75); PLATELET COUNT 200 10^3/uL (130-400); RED BLOOD COUNT 4.64 10^6/uL (4.35-5.85); RED CELL DISTRIBUTION WIDTH 16.4 % (10.0-14.5); WHITE BLOOD COUNT 6.2 10^3/uL (4.3-11.0)
[2018-07-19 10:36] LABS: BUN/CREATININE RATIO 15; CARBON DIOXIDE 25 MMOL/L (21-32); CHLORIDE 105 MMOL/L (98-107); CREATININE SERUM 0.89 MG/DL (0.60-1.30); GFR ESTIMATED > 60; GLUCOSE 114 MG/DL (70-105); SODIUM 137 MMOL/L (135-145)
== END 2018-07-25 15:02 | disposition home or self-care (01) ==
LOC: ONC 10:03
PROVIDERS: ATTEND Internal Medicine Hematology & Oncology
DX: Z51.11 Encounter for antineoplastic chemotherapy (principal); C18.0 Malignant neoplasm of cecum; C18.2 Malignant neoplasm of ascending colon; C78.7 Secondary malignant neoplasm of liver and intrahepatic bile duct; C77.2 Secondary and unspecified malignant neoplasm of intra-abdominal lymph nodes; F17.210 Nicotine dependence, cigarettes, uncomplicated; E66.01 Morbid (severe) obesity due to excess calories; Z68.41 Body mass index [BMI] 40.0-44.9, adult; Z79.899 Other long term (current) drug therapy; Z90.49 Acquired absence of other specified parts of digestive tract
CPT/HCPCS: 36415; 36591; 36593; 80048; 80053; 81002; 82378; 85025; 96367; 96368; 96375; 96409; 96411; 96413

== ENCOUNTER 2018-08-02 13:44 | Outpatient (RCR) | payer MEDICARE, OTHER ==
[2018-07-26 10:02] LABS: BASOPHILS % (AUTO) 1 % (0-10); EOSINOPHILS # (AUTO) 0.2 10^3/uL (0.0-0.3); EOSINOPHILS % (AUTO) 4 % (0-10); HEMATOCRIT 43 % (40-54); HEMOGLOBIN 14.3 G/DL (13.3-17.7); LYMPHOCYTES # (AUTO) 2.8 X 10^3 (1.0-4.0); LYMPHOCYTES % (AUTO) 43 % (12-44); MEAN CORPUSCULAR HEMOGLOBIN 29 PG (25-34); MEAN CORPUSCULAR HGB CONC 34 G/DL (32-36); MEAN CORPUSCULAR VOLUME 88 FL (80-99); MONOCYTES # (AUTO) 0.6 X 10^3 (0.0-1.0); MONOCYTES % (AUTO) 10 % (0-12); NEUTROPHILS # (AUTO) 2.8 X 10^3 (1.8-7.8); NEUTROPHILS % (AUTO) 43 % (42-75); PLATELET COUNT 188 10^3/uL (130-400); RED BLOOD COUNT 4.88 10^6/uL (4.35-5.85); RED CELL DISTRIBUTION WIDTH 16.7 % (10.0-14.5); WHITE BLOOD COUNT 6.5 10^3/uL (4.3-11.0)
[2018-07-26 10:19] LABS: ALANINE AMINOTRANSFERASE 27 U/L (0-55); ALBUMIN 4.2 GM/DL (3.2-4.5); ALKALINE PHOSPHATASE 71 U/L (40-136); BILIRUBIN,TOTAL 0.5 MG/DL (0.1-1.0); BUN/CREATININE RATIO 10; CALCIUM 9.3 MG/DL (8.5-10.1); CARBON DIOXIDE 26 MMOL/L (21-32); CHLORIDE 105 MMOL/L (98-107); CREATININE SERUM 1.05 MG/DL (0.60-1.30); GFR ESTIMATED > 60; GLUCOSE 107 MG/DL (70-105); MAGNESIUM 2.1 MG/DL (1.8-2.4); POTASSIUM 4.5 MMOL/L (3.6-5.0); SODIUM 139 MMOL/L (135-145); TOTAL PROTEIN 6.9 GM/DL (6.4-8.2)
[~2018-08-02] VITALS: Ht 165.1 cm; Wt 109.8 kg
[~2018-08-02 13:44] MED LIST changes: -ALTEPLASE 2 MG (CATHFLO) CANCER CENTER IV ONE; -oxyCODONE/APAP 10/325MG (PERCOCET 10) TABLET PO ONE
[2018-08-02 13:58] LABS: BASOPHILS % (AUTO) 1 % (0-10); EOSINOPHILS # (AUTO) 0.4 10^3/uL (0.0-0.3); EOSINOPHILS % (AUTO) 7 % (0-10); HEMATOCRIT 42 % (40-54); LYMPHOCYTES # (AUTO) 2.7 X 10^3 (1.0-4.0); LYMPHOCYTES % (AUTO) 45 % (12-44); MEAN CORPUSCULAR HEMOGLOBIN 30 PG (25-34); MEAN CORPUSCULAR HGB CONC 34 G/DL (32-36); MEAN CORPUSCULAR VOLUME 89 FL (80-99); MONOCYTES # (AUTO) 0.5 X 10^3 (0.0-1.0); MONOCYTES % (AUTO) 8 % (0-12); NEUTROPHILS # (AUTO) 2.4 X 10^3 (1.8-7.8); NEUTROPHILS % (AUTO) 40 % (42-75); PLATELET COUNT 184 10^3/uL (130-400); RED BLOOD COUNT 4.69 10^6/uL (4.35-5.85); RED CELL DISTRIBUTION WIDTH 16.3 % (10.0-14.5)
[2018-08-02 14:16] LABS: BUN/CREATININE RATIO 12; CALCIUM 9.6 MG/DL (8.5-10.1); CARBON DIOXIDE 28 MMOL/L (21-32); CHLORIDE 103 MMOL/L (98-107); CREATININE SERUM 1.03 MG/DL (0.60-1.30); GFR ESTIMATED > 60; GLUCOSE 123 MG/DL (70-105); POTASSIUM 4.7 MMOL/L (3.6-5.0); SODIUM 139 MMOL/L (135-145)
== END 2018-08-06 | disposition home or self-care (01) ==
LOC: ONC 13:44
PROVIDERS: ATTEND Internal Medicine Hematology & Oncology
DX: Z51.11 Encounter for antineoplastic chemotherapy (principal); C18.0 Malignant neoplasm of cecum; C18.2 Malignant neoplasm of ascending colon; C78.7 Secondary malignant neoplasm of liver and intrahepatic bile duct; C77.2 Secondary and unspecified malignant neoplasm of intra-abdominal lymph nodes; F17.210 Nicotine dependence, cigarettes, uncomplicated; E66.01 Morbid (severe) obesity due to excess calories; Z68.41 Body mass index [BMI] 40.0-44.9, adult; Z79.899 Other long term (current) drug therapy; Z90.49 Acquired absence of other specified parts of digestive tract
CPT/HCPCS: 36415; 36591; 80048; 80053; 83735; 85025; 96367; 96368; 96374; 96375; 96411; 96413

== ENCOUNTER → 2018-09-13 | Outpatient (CLI) | payer MEDICARE, OTHER ==
[~2018-09-13] MED LIST changes: -ATROPINE INJ 0.4 MG/ML SDV (CANCER CENTER) INJ SCH; +BARIUM SUSPENSION 2.1% (VANILLA SILQ) 450 ML PO ONE; -BEVACIZUMAB IV SCH; -FLUOROURACIL 0.6 GM in SYRINGE-IVPB 1 SYRINGE IV SCH; -FLUOROURACIL IV SCH; -FOSAPREPITANT DIMEGLUMINE 150 MG in NS (IVPB) CANCER CENTER ONLY 150 ML IV SCH; +IOHEXOL 350 MG/ML 100 ML (OMNIPAQUE 350) VIAL IV ONE; -IRINOTECAN HCL 300 MG in D5W 250 ML IVPB (CANCER CTR) 250 ML IV SCH; -LEUCOVORIN CALCIUM 600 MG in D5W 250 ML IVPB (CANCER CTR) 250 ML IV SCH; +NS 250 ML (IVPB) BAG IV ONE; -NS IV 1000 ML (CANCER CTR) 1,000 ML IV SCH; -NS IV SCH; -ONDANSETRON 8 MG, DEXAMETHASONE 4 MG/NS 50 ML IVPB (Cancer Ctr) IV SCH; -PALONOSETRON HCL 0.25 MG, DEXAMETHASONE INJECTION 10 MG in NS (IVPB) CANCER CENTER 50 ML IV SCH; +RECEIVED CONTRAST (Hold Metformin) IV SCH; -[UNRECOGNIZED DRUG - OTHER] IV SCH
--- NOTE | 2018-09-13 08:39 | Diagnostic Imaging Report ---
PROCEDURE: CT chest with contrast, CT abdomen and pelvis with and without contrast. TECHNIQUE: Pre and post intravenous contrast axial imaging of the abdomen and pelvis and post contrast axial imaging of the chest were performed. INDICATION: Colon carcinoma. COMPARISON: Comparison is made with prior CT from 06/26/2018. CT CHEST: No axillary lymphadenopathy is identified. Right chest wall port remains in place with tip at the SVC right atrial junction. No hilar lymphadenopathy is seen. The lymph nodes in the peritracheal and subcarinal locations appear to be stable. No pericardial or pleural fluid is detected. Micronodules associated with the major fissure on the right appears stable. No new pulmonary mass is seen. Extensive spinal instrumentation in the thoracic spine is identified. No definite osteolytic or blastic lesions are seen. There are multiple healed rib fractures on the right. There are postsurgical changes of the right humerus. IMPRESSION: Stable CT of the chest when compared with prior exam from 06/26/2018. No new or enlarging pulmonary nodules or evidence of thoracic lymphadenopathy is seen. CT ABDOMEN AND PELVIS: Lesions in the dome of the liver appear to be slightly smaller when compared to prior exam. The more posterior lesion in the dome of the right lobe measures 16 mm compared with 19 mm. The lesion anterior to this is similar at 16 mm. Lesion in the left lobe measures approximately 14 mm, similar to prior exam when measured by the same technique. Lesion in inferior right lobe is 16 mm compared with 15 mm on prior study. Gallbladder is unremarkable. Pancreas and spleen are unremarkable. No adrenal mass is seen. There is a filter in the inferior vena cava. The kidneys are unremarkable. The aorta is nonaneurysmal. Multiple mildly prominent but normal-sized lymph nodes in the central retroperitoneum are again seen. No definite mesenteric lymphadenopathy is identified. Postsurgical changes of right hemicolectomy are again noted. Bowel loops appear to be nonobstructed. There is no ascites. A previously noted lymph node in the right iliac location measures 23 mm x 13 mm compared with 23 mm x 21 mm. Mildly prominent lymph nodes in the inguinal regions bilaterally are noted but appear stable to prior study. The bladder is unremarkable. Prostate remains enlarged. The bony structures are stable. IMPRESSION: Overall stable appearance to the low-attenuation lesions within the liver when compared with 06/26/2018. No new liver mass is identified. In addition, right iliac chain lymph node appears to be stable. Bilateral inguinal nodes appear stable. Dictated by: Dictated on workstation # [id number]
== END ==
LOC: RAD 07:38
PROVIDERS: ATTEND Internal Medicine Hematology & Oncology
DX: C18.2 Malignant neoplasm of ascending colon (principal); C78.7 Secondary malignant neoplasm of liver and intrahepatic bile duct; C77.2 Secondary and unspecified malignant neoplasm of intra-abdominal lymph nodes
CPT/HCPCS: 71260; 74178

== ENCOUNTER 2018-11-01 10:31 | Outpatient (RCR) | payer MEDICARE, OTHER ==
[2018-08-09 11:03] LABS: BASOPHILS % (AUTO) 1 % (0-10); EOSINOPHILS # (AUTO) 0.2 10^3/uL (0.0-0.3); EOSINOPHILS % (AUTO) 3 % (0-10); HEMATOCRIT 38 % (40-54); HEMOGLOBIN 12.4 G/DL (13.3-17.7); LYMPHOCYTES # (AUTO) 2.4 X 10^3 (1.0-4.0); LYMPHOCYTES % (AUTO) 41 % (12-44); MEAN CORPUSCULAR HEMOGLOBIN 29 PG (25-34); MEAN CORPUSCULAR HGB CONC 33 G/DL (32-36); MEAN CORPUSCULAR VOLUME 89 FL (80-99); MEAN PLATELET VOLUME 9.6 FL (7.4-10.4); MONOCYTES # (AUTO) 0.8 X 10^3 (0.0-1.0); MONOCYTES % (AUTO) 14 % (0-12); NEUTROPHILS # (AUTO) 2.4 X 10^3 (1.8-7.8); NEUTROPHILS % (AUTO) 41 % (42-75); PLATELET COUNT 176 10^3/uL (130-400); RED BLOOD COUNT 4.22 10^6/uL (4.35-5.85); RED CELL DISTRIBUTION WIDTH 16.8 % (10.0-14.5); WHITE BLOOD COUNT 5.8 10^3/uL (4.3-11.0)
[2018-08-09 11:27] LABS: ALANINE AMINOTRANSFERASE 21 U/L (0-55); ALBUMIN 3.8 GM/DL (3.2-4.5); ALKALINE PHOSPHATASE 62 U/L (40-136); BILIRUBIN,TOTAL 0.4 MG/DL (0.1-1.0); BUN/CREATININE RATIO 12; CALCIUM 8.8 MG/DL (8.5-10.1); CARBON DIOXIDE 23 MMOL/L (21-32); CHLORIDE 108 MMOL/L (98-107); CREATININE SERUM 0.86 MG/DL (0.60-1.30); GFR ESTIMATED > 60; GLUCOSE 102 MG/DL (70-105); MAGNESIUM 1.9 MG/DL (1.8-2.4); POTASSIUM 3.7 MMOL/L (3.6-5.0); SODIUM 138 MMOL/L (135-145); TOTAL PROTEIN 6.5 GM/DL (6.4-8.2)
[2018-08-16 08:15] LABS: BASOPHILS % (AUTO) 0 % (0-10); EOSINOPHILS # (AUTO) 0.3 10^3/uL (0.0-0.3); EOSINOPHILS % (AUTO) 5 % (0-10); HEMATOCRIT 40 % (40-54); HEMOGLOBIN 13.4 G/DL (13.3-17.7); LYMPHOCYTES # (AUTO) 2.9 X 10^3 (1.0-4.0); LYMPHOCYTES % (AUTO) 54 % (12-44); MEAN CORPUSCULAR HEMOGLOBIN 30 PG (25-34); MEAN CORPUSCULAR HGB CONC 34 G/DL (32-36); MEAN CORPUSCULAR VOLUME 88 FL (80-99); MEAN PLATELET VOLUME 9.4 FL (7.4-10.4); MONOCYTES # (AUTO) 0.4 X 10^3 (0.0-1.0); MONOCYTES % (AUTO) 8 % (0-12); NEUTROPHILS # (AUTO) 1.8 X 10^3 (1.8-7.8); NEUTROPHILS % (AUTO) 34 % (42-75); PLATELET COUNT 233 10^3/uL (130-400); RED BLOOD COUNT 4.54 10^6/uL (4.35-5.85); RED CELL DISTRIBUTION WIDTH 16.9 % (10.0-14.5); WHITE BLOOD COUNT 5.4 10^3/uL (4.3-11.0)
[2018-08-16 08:42] LABS: BUN/CREATININE RATIO 11; CALCIUM 9.2 MG/DL (8.5-10.1); CARBON DIOXIDE 26 MMOL/L (21-32); CHLORIDE 105 MMOL/L (98-107); CREATININE SERUM 0.95 MG/DL (0.60-1.30); GFR ESTIMATED > 60; GLUCOSE 103 MG/DL (70-105); SODIUM 139 MMOL/L (135-145)
[2018-08-23 13:33] LABS: BASOPHILS # (AUTO) 0.1 10^3/uL (0.0-0.1); BASOPHILS % (AUTO) 1 % (0-10); EOSINOPHILS # (AUTO) 0.2 10^3/uL (0.0-0.3); EOSINOPHILS % (AUTO) 3 % (0-10); HEMATOCRIT 39 % (40-54); HEMOGLOBIN 13.1 G/DL (13.3-17.7); LYMPHOCYTES # (AUTO) 1.7 X 10^3 (1.0-4.0); LYMPHOCYTES % (AUTO) 33 % (12-44); MEAN CORPUSCULAR HEMOGLOBIN 30 PG (25-34); MEAN CORPUSCULAR HGB CONC 34 G/DL (32-36); MEAN CORPUSCULAR VOLUME 88 FL (80-99); MEAN PLATELET VOLUME 9.4 FL (7.4-10.4); MONOCYTES # (AUTO) 0.6 X 10^3 (0.0-1.0); MONOCYTES % (AUTO) 11 % (0-12); NEUTROPHILS # (AUTO) 2.8 X 10^3 (1.8-7.8); NEUTROPHILS % (AUTO) 52 % (42-75); PLATELET COUNT 200 10^3/uL (130-400); RED BLOOD COUNT 4.41 10^6/uL (4.35-5.85); WHITE BLOOD COUNT 5.3 10^3/uL (4.3-11.0)
[2018-08-23 13:52] LABS: ALANINE AMINOTRANSFERASE 29 U/L (0-55); ALKALINE PHOSPHATASE 64 U/L (40-136); BILIRUBIN,TOTAL 0.3 MG/DL (0.1-1.0); BUN/CREATININE RATIO 11; CALCIUM 9.3 MG/DL (8.5-10.1); CARBON DIOXIDE 25 MMOL/L (21-32); CHLORIDE 107 MMOL/L (98-107); CREATININE SERUM 1.02 MG/DL (0.60-1.30); GFR ESTIMATED > 60; GLUCOSE 113 MG/DL (70-105); POTASSIUM 4.2 MMOL/L (3.6-5.0); SODIUM 139 MMOL/L (135-145); TOTAL PROTEIN 6.6 GM/DL (6.4-8.2)
[2018-08-31 14:32] LABS: BASOPHILS % (AUTO) 0 % (0-10); EOSINOPHILS # (AUTO) 0.3 10^3/uL (0.0-0.3); EOSINOPHILS % (AUTO) 6 % (0-10); HEMATOCRIT 40 % (40-54); LYMPHOCYTES # (AUTO) 2.7 X 10^3 (1.0-4.0); LYMPHOCYTES % (AUTO) 50 % (12-44); MEAN CORPUSCULAR HEMOGLOBIN 29 PG (25-34); MEAN CORPUSCULAR HGB CONC 33 G/DL (32-36); MEAN CORPUSCULAR VOLUME 89 FL (80-99); MEAN PLATELET VOLUME 9.9 FL (7.4-10.4); MONOCYTES # (AUTO) 0.6 X 10^3 (0.0-1.0); MONOCYTES % (AUTO) 10 % (0-12); NEUTROPHILS # (AUTO) 1.8 X 10^3 (1.8-7.8); NEUTROPHILS % (AUTO) 33 % (42-75); PLATELET COUNT 227 10^3/uL (130-400); RED BLOOD COUNT 4.44 10^6/uL (4.35-5.85); RED CELL DISTRIBUTION WIDTH 18.1 % (10.0-14.5); WHITE BLOOD COUNT 5.4 10^3/uL (4.3-11.0)
[2018-08-31 14:57] LABS: BUN/CREATININE RATIO 12; CALCIUM 9.1 MG/DL (8.5-10.1); CARBON DIOXIDE 25 MMOL/L (21-32); CHLORIDE 105 MMOL/L (98-107); CREATININE SERUM 0.98 MG/DL (0.60-1.30); GFR ESTIMATED > 60; GLUCOSE 113 MG/DL (70-105); SODIUM 141 MMOL/L (135-145)
[2018-09-06 10:45] LABS: BILIRUBIN,URINE NEGATIVE (NEGATIVE); CLARITY,URINE CLEAR; COLOR,URINE AMBER; GLUCOSE, URINE (UA) NEGATIVE (NEGATIVE); KETONES,URINE 1+ (NEGATIVE); LEUKOCYTE ESTERASE ,URINE 1+ (NEGATIVE); NITRITE,URINE NEGATIVE (NEGATIVE); PH,URINE 5 (5-9); PROTEIN,URINE 2+ (NEGATIVE); UROBILINOGEN,URINE 1 MG/DL (NORMAL)
[2018-09-06 11:17] LABS: BASOPHILS % (AUTO) 0 % (0-10); EOSINOPHILS # (AUTO) 0.3 10^3/uL (0.0-0.3); EOSINOPHILS % (AUTO) 5 % (0-10); HEMATOCRIT 37 % (40-54); HEMOGLOBIN 11.6 G/DL (13.3-17.7); LYMPHOCYTES % (AUTO) 36 % (12-44); MEAN CORPUSCULAR HEMOGLOBIN 28 PG (25-34); MEAN CORPUSCULAR HGB CONC 31 G/DL (32-36); MEAN CORPUSCULAR VOLUME 91 FL (80-99); MEAN PLATELET VOLUME 9.6 FL (7.4-10.4); MONOCYTES # (AUTO) 0.6 X 10^3 (0.0-1.0); MONOCYTES % (AUTO) 11 % (0-12); NEUTROPHILS # (AUTO) 2.7 X 10^3 (1.8-7.8); NEUTROPHILS % (AUTO) 48 % (42-75); PLATELET COUNT 191 10^3/uL (130-400); RED BLOOD COUNT 4.08 10^6/uL (4.35-5.85); RED CELL DISTRIBUTION WIDTH 18.3 % (10.0-14.5); WHITE BLOOD COUNT 5.7 10^3/uL (4.3-11.0)
[2018-09-06 11:39] LABS: ALANINE AMINOTRANSFERASE 26 U/L (0-55); ALBUMIN 3.7 GM/DL (3.2-4.5); ALKALINE PHOSPHATASE 68 U/L (40-136); BILIRUBIN,TOTAL 0.4 MG/DL (0.1-1.0); BUN/CREATININE RATIO 13; CALCIUM 8.7 MG/DL (8.5-10.1); CARBON DIOXIDE 26 MMOL/L (21-32); CHLORIDE 108 MMOL/L (98-107); CREATININE SERUM 0.91 MG/DL (0.60-1.30); GFR ESTIMATED > 60; GLUCOSE 131 MG/DL (70-105); MAGNESIUM 1.8 MG/DL (1.8-2.4); POTASSIUM 3.9 MMOL/L (3.6-5.0); SODIUM 141 MMOL/L (135-145); TOTAL PROTEIN 6.1 GM/DL (6.4-8.2)
[2018-09-20 10:31] LABS: BASOPHILS # (AUTO) 0.1 10^3/uL (0.0-0.1); BASOPHILS % (AUTO) 1 % (0-10); EOSINOPHILS # (AUTO) 0.2 10^3/uL (0.0-0.3); EOSINOPHILS % (AUTO) 3 % (0-10); HEMATOCRIT 38 % (40-54); HEMOGLOBIN 12.1 G/DL (13.3-17.7); LYMPHOCYTES # (AUTO) 2.7 X 10^3 (1.0-4.0); LYMPHOCYTES % (AUTO) 47 % (12-44); MEAN CORPUSCULAR HEMOGLOBIN 29 PG (25-34); MEAN CORPUSCULAR HGB CONC 32 G/DL (32-36); MEAN CORPUSCULAR VOLUME 91 FL (80-99); MEAN PLATELET VOLUME 10.1 FL (7.4-10.4); MONOCYTES # (AUTO) 0.8 X 10^3 (0.0-1.0); MONOCYTES % (AUTO) 13 % (0-12); NEUTROPHILS # (AUTO) 2.2 X 10^3 (1.8-7.8); NEUTROPHILS % (AUTO) 37 % (42-75); PLATELET COUNT 194 10^3/uL (130-400); RED CELL DISTRIBUTION WIDTH 18.6 % (10.0-14.5); WHITE BLOOD COUNT 5.9 10^3/uL (4.3-11.0)
[2018-09-20 10:51] LABS: ALANINE AMINOTRANSFERASE 47 U/L (0-55); ALKALINE PHOSPHATASE 70 U/L (40-136); BILIRUBIN,TOTAL 0.4 MG/DL (0.1-1.0); BUN/CREATININE RATIO 9; CALCIUM 8.8 MG/DL (8.5-10.1); CARBON DIOXIDE 26 MMOL/L (21-32); CHLORIDE 105 MMOL/L (98-107); CREATININE SERUM 0.89 MG/DL (0.60-1.30); GFR ESTIMATED > 60; GLUCOSE 107 MG/DL (70-105); MAGNESIUM 1.9 MG/DL (1.8-2.4); POTASSIUM 4.1 MMOL/L (3.6-5.0); SODIUM 137 MMOL/L (135-145); TOTAL PROTEIN 6.6 GM/DL (6.4-8.2)
[2018-10-03 09:58] LABS: BASOPHILS # (AUTO) 0.1 10^3/uL (0.0-0.1); BASOPHILS % (AUTO) 1 % (0-10); EOSINOPHILS # (AUTO) 0.2 10^3/uL (0.0-0.3); EOSINOPHILS % (AUTO) 3 % (0-10); HEMATOCRIT 39 % (40-54); HEMOGLOBIN 12.6 G/DL (13.3-17.7); LYMPHOCYTES # (AUTO) 2.2 X 10^3 (1.0-4.0); LYMPHOCYTES % (AUTO) 34 % (12-44); MEAN CORPUSCULAR HEMOGLOBIN 29 PG (25-34); MEAN CORPUSCULAR HGB CONC 32 G/DL (32-36); MEAN CORPUSCULAR VOLUME 91 FL (80-99); MEAN PLATELET VOLUME 9.7 FL (7.4-10.4); MONOCYTES # (AUTO) 0.9 X 10^3 (0.0-1.0); MONOCYTES % (AUTO) 13 % (0-12); NEUTROPHILS # (AUTO) 3.2 X 10^3 (1.8-7.8); NEUTROPHILS % (AUTO) 49 % (42-75); PLATELET COUNT 186 10^3/uL (130-400); RED CELL DISTRIBUTION WIDTH 18.7 % (10.0-14.5); WHITE BLOOD COUNT 6.5 10^3/uL (4.3-11.0)
[2018-10-03 10:14] LABS: ALBUMIN 4.1 GM/DL (3.2-4.5); BILIRUBIN,TOTAL 0.4 MG/DL (0.1-1.0); CALCIUM 8.9 MG/DL (8.5-10.1); CREATININE SERUM 1.33 MG/DL (0.60-1.30); MAGNESIUM 2.1 MG/DL (1.8-2.4); POTASSIUM 3.9 MMOL/L (3.6-5.0); TOTAL PROTEIN 6.6 GM/DL (6.4-8.2)
[2018-10-18 09:38] LABS: BASOPHILS % (AUTO) 1 % (0-10); EOSINOPHILS # (AUTO) 0.3 10^3/uL (0.0-0.3); EOSINOPHILS % (AUTO) 5 % (0-10); HEMATOCRIT 40 % (40-54); HEMOGLOBIN 12.6 G/DL (13.3-17.7); LYMPHOCYTES # (AUTO) 1.9 X 10^3 (1.0-4.0); LYMPHOCYTES % (AUTO) 30 % (12-44); MEAN CORPUSCULAR HEMOGLOBIN 29 PG (25-34); MEAN CORPUSCULAR HGB CONC 32 G/DL (32-36); MEAN CORPUSCULAR VOLUME 91 FL (80-99); MEAN PLATELET VOLUME 9.9 FL (7.4-10.4); MONOCYTES # (AUTO) 0.8 X 10^3 (0.0-1.0); MONOCYTES % (AUTO) 12 % (0-12); NEUTROPHILS # (AUTO) 3.3 X 10^3 (1.8-7.8); NEUTROPHILS % (AUTO) 52 % (42-75); PLATELET COUNT 213 10^3/uL (130-400); RED BLOOD COUNT 4.32 10^6/uL (4.35-5.85); RED CELL DISTRIBUTION WIDTH 18.3 % (10.0-14.5); WHITE BLOOD COUNT 6.3 10^3/uL (4.3-11.0)
[2018-10-18 09:56] LABS: ALANINE AMINOTRANSFERASE 25 U/L (0-55); ALKALINE PHOSPHATASE 65 U/L (40-136); BILIRUBIN,TOTAL 0.3 MG/DL (0.1-1.0); BUN/CREATININE RATIO 9; CARBON DIOXIDE 25 MMOL/L (21-32); CHLORIDE 104 MMOL/L (98-107); CREATININE SERUM 1.02 MG/DL (0.60-1.30); GFR ESTIMATED > 60; GLUCOSE 113 MG/DL (70-105); MAGNESIUM 1.9 MG/DL (1.8-2.4); POTASSIUM 4.2 MMOL/L (3.6-5.0); SODIUM 138 MMOL/L (135-145); TOTAL PROTEIN 6.6 GM/DL (6.4-8.2)
[~2018-11-01] VITALS: Ht 165.1 cm; Wt 108.9 kg
[~2018-11-01 10:31] MED LIST changes: +ALTEPLASE 2 MG (CATHFLO) CANCER CENTER IV ONE; +ATROPINE INJ 0.4 MG/ML SDV (CANCER CENTER) INJ SCH; -BARIUM SUSPENSION 2.1% (VANILLA SILQ) 450 ML PO ONE; +BEVACIZUMAB IV SCH; +FLUOROURACIL 0.6 GM in SYRINGE-IVPB 1 SYRINGE IV SCH; +FLUOROURACIL IV SCH; +FOSAPREPITANT DIMEGLUMINE 150 MG in NS (IVPB) CANCER CENTER ONLY 150 ML IV SCH; -IOHEXOL 350 MG/ML 100 ML (OMNIPAQUE 350) VIAL IV ONE; +IRINOTECAN HCL 300 MG in D5W 250 ML IVPB (CANCER CTR) 250 ML IV SCH; +LEUCOVORIN CALCIUM 600 MG in D5W 250 ML IVPB (CANCER CTR) 250 ML IV SCH; -NS 250 ML (IVPB) BAG IV ONE; +NS IV 1000 ML (CANCER CTR) 1,000 ML IV SCH; +NS IV SCH; +ONDANSETRON 8 MG, DEXAMETHASONE 4 MG/NS 50 ML IVPB (Cancer Ctr) IV SCH; +ONDANSETRON MDV (CANCER CENTER 16 MG, DEXAMETHASONE INJECTION 10 MG in NS (IVPB) CANCER... IV SCH; +PALONOSETRON HCL 0.25 MG, DEXAMETHASONE INJECTION 10 MG in NS (IVPB) CANCER CENTER 50 ML IV SCH; -RECEIVED CONTRAST (Hold Metformin) IV SCH; +[UNRECOGNIZED DRUG - OTHER] IV SCH; +oxyCODONE/APAP 10/325MG (PERCOCET 10) TABLET PO ONE
[2018-11-01 10:59] LABS: BASOPHILS % (AUTO) 0 % (0-10); EOSINOPHILS # (AUTO) 0.6 10^3/uL (0.0-0.3); EOSINOPHILS % (AUTO) 8 % (0-10); HEMATOCRIT 36 % (40-54); HEMOGLOBIN 11.4 G/DL (13.3-17.7); LYMPHOCYTES % (AUTO) 28 % (12-44); MEAN CORPUSCULAR HEMOGLOBIN 30 PG (25-34); MEAN CORPUSCULAR HGB CONC 32 G/DL (32-36); MEAN CORPUSCULAR VOLUME 94 FL (80-99); MEAN PLATELET VOLUME 9.8 FL (7.4-10.4); MONOCYTES # (AUTO) 0.7 X 10^3 (0.0-1.0); MONOCYTES % (AUTO) 10 % (0-12); NEUTROPHILS # (AUTO) 3.9 X 10^3 (1.8-7.8); NEUTROPHILS % (AUTO) 54 % (42-75); PLATELET COUNT 179 10^3/uL (130-400); RED BLOOD COUNT 3.84 10^6/uL (4.35-5.85); RED CELL DISTRIBUTION WIDTH 18.7 % (10.0-14.5); WHITE BLOOD COUNT 7.3 10^3/uL (4.3-11.0)
[2018-11-01 11:17] LABS: BUN/CREATININE RATIO 15; CALCIUM 8.2 MG/DL (8.5-10.1); CARBON DIOXIDE 26 MMOL/L (21-32); CHLORIDE 108 MMOL/L (98-107); GFR ESTIMATED > 60; GLUCOSE 132 MG/DL (70-105); POTASSIUM 4.3 MMOL/L (3.6-5.0); SODIUM 142 MMOL/L (135-145)
== END 2018-11-07 | disposition home or self-care (01) ==
LOC: ONC 10:31
PROVIDERS: ATTEND Internal Medicine Hematology & Oncology
DX: Z51.11 Encounter for antineoplastic chemotherapy (principal); C18.0 Malignant neoplasm of cecum; C18.2 Malignant neoplasm of ascending colon; C78.7 Secondary malignant neoplasm of liver and intrahepatic bile duct; C77.2 Secondary and unspecified malignant neoplasm of intra-abdominal lymph nodes; F17.210 Nicotine dependence, cigarettes, uncomplicated; E66.01 Morbid (severe) obesity due to excess calories; Z68.41 Body mass index [BMI] 40.0-44.9, adult; Z79.899 Other long term (current) drug therapy; Z90.49 Acquired absence of other specified parts of digestive tract
CPT/HCPCS: 36415; 36591; 36593; 80048; 80053; 81002; 82378; 82570; 83735; 84156; 85025; 96367; 96368; 96374; 96375; 96409; 96411; 96413

== ENCOUNTER → 2018-12-25 | Outpatient (CLI) | payer MEDICARE ==
[~2018-12-25] MED LIST changes: -ALTEPLASE 2 MG (CATHFLO) CANCER CENTER IV ONE; -AMLO10TA6 PO; +AMLO10TA7 PO; -ATROPINE INJ 0.4 MG/ML SDV (CANCER CENTER) INJ SCH; +BARIUM SUSPENSION 2.1% (VANILLA SILQ) 450 ML PO ONE; -BEVACIZUMAB IV SCH; -FLUOROURACIL 0.6 GM in SYRINGE-IVPB 1 SYRINGE IV SCH; -FLUOROURACIL IV SCH; -FOSAPREPITANT DIMEGLUMINE 150 MG in NS (IVPB) CANCER CENTER ONLY 150 ML IV SCH; +IOHEXOL 350 MG/ML 100 ML (OMNIPAQUE 350) VIAL IV ONE; -IRINOTECAN HCL 300 MG in D5W 250 ML IVPB (CANCER CTR) 250 ML IV SCH; -LEUCOVORIN CALCIUM 600 MG in D5W 250 ML IVPB (CANCER CTR) 250 ML IV SCH; +NS 100 ML (IVPB) BAG IV ONE; -NS IV 1000 ML (CANCER CTR) 1,000 ML IV SCH; -NS IV SCH; -ONDANSETRON 8 MG, DEXAMETHASONE 4 MG/NS 50 ML IVPB (Cancer Ctr) IV SCH; -ONDANSETRON MDV (CANCER CENTER 16 MG, DEXAMETHASONE INJECTION 10 MG in NS (IVPB) CANCER... IV SCH; -PALONOSETRON HCL 0.25 MG, DEXAMETHASONE INJECTION 10 MG in NS (IVPB) CANCER CENTER 50 ML IV SCH; +RECEIVED CONTRAST (Hold Metformin) IV SCH; -[UNRECOGNIZED DRUG - OTHER] IV SCH; -oxyCODONE/APAP 10/325MG (PERCOCET 10) TABLET PO ONE
--- NOTE | 2018-12-25 09:17 | Diagnostic Imaging Report ---
PROCEDURE: CT chest, abdomen, and pelvis with contrast. TECHNIQUE: Multiple contiguous axial images were obtained through the chest, abdomen, and pelvis after the administration of intravenous contrast. INDICATION: Colon carcinoma. Study is performed for restaging. Comparison is made with prior CT from 09/13/2018. CT chest: FINDINGS: No axillary lymphadenopathy is seen. Right chest wall port remains in place. Previously noted small paratracheal and subcarinal nodes appear to be stable. No hilar lymphadenopathy is seen. No pericardial or pleural fluid is detected. Tiny nodule adjacent to the major fissure on the right, image 25 appears stable at 4-5 mm. No new parenchymal nodule is identified. Multiple healed right-sided rib fractures are seen. There is spinal instrumentation noted posteriorly. Postop changes of the right humerus are also seen. IMPRESSION: Stable CT of the chest since study from 09/13/2018. No thoracic lymphadenopathy or evidence of pulmonary metastatic disease is seen. CT abdomen and pelvis: FINDINGS: Low-density lesions within the liver are again noted. Low-density lesion in the dome of the right lobe is stable at 16 mm. Just anterior to this, a second lesion appears to be stable at 15 mm. A lesion in the left lobe is stable at 14 mm. However, more inferiorly in the right lobe, a low-density lesion has increased in size, now measuring 28 mm compared with 16 mm. No new liver lesion is seen. The gallbladder is unremarkable. No biliary ductal dilatation is seen. The pancreas and spleen are unremarkable. No adrenal mass is detected. Kidneys are unremarkable. Aorta is unremarkable. There is a filter in the IVC. Small lymph nodes in the central retroperitoneum are similar. No definite enlarged mesenteric nodes are identified. A right iliac node measures 23 mm x 11 mm compared with 23 mm x 13 mm. Bilateral inguinal lymph nodes are prominent but appear similar to prior exam. Bowel loops appear to be normal caliber. Postsurgical changes of right hemicolectomy are noted. A small fat-containing umbilical hernia is seen. There are also small ventral hernias at the level of the umbilicus in the paramidline locations on both the right and left containing fat. No herniated bowel loops are seen. There is sigmoid diverticulosis without evidence of acute diverticulitis. The bladder is unremarkable. The prostate is enlarged. There is no ascites. Bony structures are nonacute. IMPRESSION: 1. Enlarging mass in the inferior right lobe of the liver when compared with prior examination from 09/13/2018. 2. Otherwise, overall stable CT of the abdomen and pelvis when compared with prior exam. Dictated by: Dictated on workstation # [id number]
== END ==
LOC: RAD 07:33
PROVIDERS: ATTEND Nurse Practitioner Adult Health
DX: C18.2 Malignant neoplasm of ascending colon (principal); C77.2 Secondary and unspecified malignant neoplasm of intra-abdominal lymph nodes; C78.7 Secondary malignant neoplasm of liver and intrahepatic bile duct; Z95.828 Presence of other vascular implants and grafts; Z98.890 Other specified postprocedural states
CPT/HCPCS: 71260; 74177

== ENCOUNTER 2019-02-09 12:22 | Outpatient (RCR) | payer MEDICARE, OTHER ==
[2018-11-15 11:01] LABS: BASOPHILS # (AUTO) 0.1 10^3/uL (0.0-0.1); BASOPHILS % (AUTO) 1 % (0-10); EOSINOPHILS # (AUTO) 0.5 10^3/uL (0.0-0.3); EOSINOPHILS % (AUTO) 7 % (0-10); HEMATOCRIT 41 % (40-54); HEMOGLOBIN 12.7 G/DL (13.3-17.7); LYMPHOCYTES # (AUTO) 2.6 X 10^3 (1.0-4.0); LYMPHOCYTES % (AUTO) 41 % (12-44); MEAN CORPUSCULAR HEMOGLOBIN 29 PG (25-34); MEAN CORPUSCULAR HGB CONC 31 G/DL (32-36); MEAN CORPUSCULAR VOLUME 91 FL (80-99); MEAN PLATELET VOLUME 10.1 FL (7.4-10.4); MONOCYTES # (AUTO) 0.9 X 10^3 (0.0-1.0); MONOCYTES % (AUTO) 13 % (0-12); NEUTROPHILS # (AUTO) 2.4 X 10^3 (1.8-7.8); NEUTROPHILS % (AUTO) 38 % (42-75); PLATELET COUNT 162 10^3/uL (130-400); RED CELL DISTRIBUTION WIDTH 17.7 % (10.0-14.5); WHITE BLOOD COUNT 6.3 10^3/uL (4.3-11.0)
[2018-11-15 11:18] LABS: ALANINE AMINOTRANSFERASE 26 U/L (0-55); ALBUMIN 4.1 GM/DL (3.2-4.5); ALKALINE PHOSPHATASE 74 U/L (40-136); BILIRUBIN,TOTAL 0.4 MG/DL (0.1-1.0); BUN/CREATININE RATIO 14; CALCIUM 9.1 MG/DL (8.5-10.1); CARBON DIOXIDE 26 MMOL/L (21-32); CHLORIDE 104 MMOL/L (98-107); CREATININE SERUM 0.85 MG/DL (0.60-1.30); GFR ESTIMATED > 60; GLUCOSE 89 MG/DL (70-105); POTASSIUM 4.2 MMOL/L (3.6-5.0); SODIUM 137 MMOL/L (135-145); TOTAL PROTEIN 6.8 GM/DL (6.4-8.2)
[2018-11-29 09:00] LABS: BASOPHILS % (AUTO) 0 % (0-10); EOSINOPHILS # (AUTO) 0.3 10^3/uL (0.0-0.3); EOSINOPHILS % (AUTO) 4 % (0-10); HEMATOCRIT 42 % (40-54); HEMOGLOBIN 13.3 G/DL (13.3-17.7); LYMPHOCYTES # (AUTO) 2.4 X 10^3 (1.0-4.0); LYMPHOCYTES % (AUTO) 33 % (12-44); MEAN CORPUSCULAR HEMOGLOBIN 29 PG (25-34); MEAN CORPUSCULAR HGB CONC 32 G/DL (32-36); MEAN CORPUSCULAR VOLUME 91 FL (80-99); MEAN PLATELET VOLUME 10.2 FL (7.4-10.4); MONOCYTES # (AUTO) 0.6 X 10^3 (0.0-1.0); MONOCYTES % (AUTO) 9 % (0-12); NEUTROPHILS # (AUTO) 3.8 X 10^3 (1.8-7.8); NEUTROPHILS % (AUTO) 54 % (42-75); PLATELET COUNT 155 10^3/uL (130-400); RED CELL DISTRIBUTION WIDTH 18.3 % (10.0-14.5); WHITE BLOOD COUNT 7.1 10^3/uL (4.3-11.0)
[2018-11-29 09:18] LABS: ALANINE AMINOTRANSFERASE 19 U/L (0-55); ALBUMIN 3.8 GM/DL (3.2-4.5); ALKALINE PHOSPHATASE 59 U/L (40-136); BILIRUBIN,TOTAL 0.4 MG/DL (0.1-1.0); BUN/CREATININE RATIO 17; CALCIUM 8.6 MG/DL (8.5-10.1); CARBON DIOXIDE 25 MMOL/L (21-32); CHLORIDE 108 MMOL/L (98-107); GFR ESTIMATED > 60; GLUCOSE 124 MG/DL (70-105); POTASSIUM 4.2 MMOL/L (3.6-5.0); SODIUM 139 MMOL/L (135-145); TOTAL PROTEIN 6.5 GM/DL (6.4-8.2)
[2018-12-13 09:31] LABS: BASOPHILS % (AUTO) 1 % (0-10); EOSINOPHILS # (AUTO) 0.4 10^3/uL (0.0-0.3); EOSINOPHILS % (AUTO) 6 % (0-10); HEMATOCRIT 42 % (40-54); HEMOGLOBIN 13.3 G/DL (13.3-17.7); LYMPHOCYTES # (AUTO) 2.4 X 10^3 (1.0-4.0); LYMPHOCYTES % (AUTO) 40 % (12-44); MEAN CORPUSCULAR HEMOGLOBIN 29 PG (25-34); MEAN CORPUSCULAR HGB CONC 32 G/DL (32-36); MEAN CORPUSCULAR VOLUME 90 FL (80-99); MEAN PLATELET VOLUME 9.8 FL (7.4-10.4); MONOCYTES # (AUTO) 0.7 X 10^3 (0.0-1.0); MONOCYTES % (AUTO) 11 % (0-12); NEUTROPHILS # (AUTO) 2.6 X 10^3 (1.8-7.8); NEUTROPHILS % (AUTO) 43 % (42-75); PLATELET COUNT 152 10^3/uL (130-400); RED CELL DISTRIBUTION WIDTH 17.7 % (10.0-14.5); WHITE BLOOD COUNT 6.1 10^3/uL (4.3-11.0)
[2018-12-13 09:52] LABS: ALANINE AMINOTRANSFERASE 20 U/L (0-55); ALBUMIN 3.9 GM/DL (3.2-4.5); ALKALINE PHOSPHATASE 68 U/L (40-136); BILIRUBIN,TOTAL 0.2 MG/DL (0.1-1.0); BUN/CREATININE RATIO 13; CALCIUM 9.2 MG/DL (8.5-10.1); CARBON DIOXIDE 26 MMOL/L (21-32); CHLORIDE 105 MMOL/L (98-107); CREATININE SERUM 0.97 MG/DL (0.60-1.30); GFR ESTIMATED > 60; GLUCOSE 136 MG/DL (70-105); POTASSIUM 4.2 MMOL/L (3.6-5.0); SODIUM 138 MMOL/L (135-145); TOTAL PROTEIN 6.3 GM/DL (6.4-8.2)
[2018-12-13 10:05] LABS: BILIRUBIN,URINE NEGATIVE (NEGATIVE); CLARITY,URINE CLEAR; COLOR,URINE YELLOW; GLUCOSE, URINE (UA) NEGATIVE (NEGATIVE); KETONES,URINE NEGATIVE (NEGATIVE); LEUKOCYTE ESTERASE ,URINE 1+ (NEGATIVE); NITRITE,URINE NEGATIVE (NEGATIVE); PH,URINE 6 (5-9); PROTEIN,URINE 2+ (NEGATIVE); UROBILINOGEN,URINE NORMAL (NORMAL)
[2018-12-26 09:40] LABS: BASOPHILS % (AUTO) 1 % (0-10); EOSINOPHILS # (AUTO) 0.3 10^3/uL (0.0-0.3); EOSINOPHILS % (AUTO) 4 % (0-10); HEMATOCRIT 41 % (40-54); HEMOGLOBIN 13.1 G/DL (13.3-17.7); LYMPHOCYTES # (AUTO) 2.3 X 10^3 (1.0-4.0); LYMPHOCYTES % (AUTO) 36 % (12-44); MEAN CORPUSCULAR HEMOGLOBIN 28 PG (25-34); MEAN CORPUSCULAR HGB CONC 32 G/DL (32-36); MEAN CORPUSCULAR VOLUME 89 FL (80-99); MEAN PLATELET VOLUME 9.5 FL (7.4-10.4); MONOCYTES % (AUTO) 15 % (0-12); NEUTROPHILS # (AUTO) 2.9 X 10^3 (1.8-7.8); NEUTROPHILS % (AUTO) 45 % (42-75); PLATELET COUNT 162 10^3/uL (130-400); RED CELL DISTRIBUTION WIDTH 18.7 % (10.0-14.5); WHITE BLOOD COUNT 6.6 10^3/uL (4.3-11.0)
[2018-12-26 09:56] LABS: ALANINE AMINOTRANSFERASE 20 U/L (0-55); ALKALINE PHOSPHATASE 62 U/L (40-136); BILIRUBIN,TOTAL 0.3 MG/DL (0.1-1.0); BUN/CREATININE RATIO 8; CALCIUM 9.3 MG/DL (8.5-10.1); CARBON DIOXIDE 26 MMOL/L (21-32); CHLORIDE 104 MMOL/L (98-107); CREATININE SERUM 1.04 MG/DL (0.60-1.30); GFR ESTIMATED > 60; GLUCOSE 103 MG/DL (70-105); POTASSIUM 4.2 MMOL/L (3.6-5.0); SODIUM 139 MMOL/L (135-145); TOTAL PROTEIN 6.6 GM/DL (6.4-8.2)
[2019-01-10 09:37] LABS: BASOPHILS % (AUTO) 1 % (0-10); EOSINOPHILS # (AUTO) 0.2 10^3/uL (0.0-0.3); EOSINOPHILS % (AUTO) 4 % (0-10); HEMATOCRIT 43 % (40-54); HEMOGLOBIN 13.5 G/DL (13.3-17.7); LYMPHOCYTES # (AUTO) 2.1 X 10^3 (1.0-4.0); LYMPHOCYTES % (AUTO) 35 % (12-44); MEAN CORPUSCULAR HEMOGLOBIN 28 PG (25-34); MEAN CORPUSCULAR HGB CONC 32 G/DL (32-36); MEAN CORPUSCULAR VOLUME 89 FL (80-99); MEAN PLATELET VOLUME 10.6 FL (7.4-10.4); MONOCYTES # (AUTO) 0.6 X 10^3 (0.0-1.0); MONOCYTES % (AUTO) 10 % (0-12); NEUTROPHILS % (AUTO) 51 % (42-75); PLATELET COUNT 163 10^3/uL (130-400); WHITE BLOOD COUNT 5.8 10^3/uL (4.3-11.0)
[2019-01-10 10:11] LABS: ALANINE AMINOTRANSFERASE 23 U/L (0-55); ALKALINE PHOSPHATASE 68 U/L (40-136); BILIRUBIN,TOTAL 0.4 MG/DL (0.1-1.0); BUN/CREATININE RATIO 11; CALCIUM 9.4 MG/DL (8.5-10.1); CARBON DIOXIDE 27 MMOL/L (21-32); CHLORIDE 104 MMOL/L (98-107); CREATININE SERUM 0.96 MG/DL (0.60-1.30); GFR ESTIMATED > 60; GLUCOSE 114 MG/DL (70-105); MAGNESIUM 1.9 MG/DL (1.8-2.4); POTASSIUM 4.3 MMOL/L (3.6-5.0); SODIUM 137 MMOL/L (135-145); TOTAL PROTEIN 6.4 GM/DL (6.4-8.2)
[2019-01-24 11:11] LABS: BASOPHILS % (AUTO) 1 % (0-10); EOSINOPHILS # (AUTO) 0.2 10^3/uL (0.0-0.3); EOSINOPHILS % (AUTO) 3 % (0-10); HEMATOCRIT 41 % (40-54); HEMOGLOBIN 13.2 G/DL (13.3-17.7); LYMPHOCYTES # (AUTO) 2.2 X 10^3 (1.0-4.0); LYMPHOCYTES % (AUTO) 39 % (12-44); MEAN CORPUSCULAR HEMOGLOBIN 29 PG (25-34); MEAN CORPUSCULAR HGB CONC 33 G/DL (32-36); MEAN CORPUSCULAR VOLUME 88 FL (80-99); MEAN PLATELET VOLUME 9.7 FL (7.4-10.4); MONOCYTES # (AUTO) 0.6 X 10^3 (0.0-1.0); MONOCYTES % (AUTO) 11 % (0-12); NEUTROPHILS # (AUTO) 2.6 X 10^3 (1.8-7.8); NEUTROPHILS % (AUTO) 46 % (42-75); PLATELET COUNT 151 10^3/uL (130-400); RED CELL DISTRIBUTION WIDTH 18.9 % (10.0-14.5); WHITE BLOOD COUNT 5.7 10^3/uL (4.3-11.0)
[2019-01-24 11:34] LABS: ALANINE AMINOTRANSFERASE 31 U/L (0-55); ALKALINE PHOSPHATASE 65 U/L (40-136); BILIRUBIN,TOTAL 0.5 MG/DL (0.1-1.0); BUN/CREATININE RATIO 12; CALCIUM 8.9 MG/DL (8.5-10.1); CARBON DIOXIDE 26 MMOL/L (21-32); CHLORIDE 107 MMOL/L (98-107); CREATININE SERUM 1.01 MG/DL (0.60-1.30); GFR ESTIMATED > 60; GLUCOSE 107 MG/DL (70-105); MAGNESIUM 1.8 MG/DL (1.8-2.4); POTASSIUM 4.2 MMOL/L (3.6-5.0); SODIUM 139 MMOL/L (135-145); TOTAL PROTEIN 6.6 GM/DL (6.4-8.2)
[2019-02-07 10:34] LABS: BASOPHILS % (AUTO) 1 % (0-10); EOSINOPHILS # (AUTO) 0.2 10^3/uL (0.0-0.3); EOSINOPHILS % (AUTO) 3 % (0-10); HEMATOCRIT 40 % (40-54); HEMOGLOBIN 13.1 G/DL (13.3-17.7); LYMPHOCYTES # (AUTO) 2.5 X 10^3 (1.0-4.0); LYMPHOCYTES % (AUTO) 44 % (12-44); MEAN CORPUSCULAR HEMOGLOBIN 29 PG (25-34); MEAN CORPUSCULAR HGB CONC 33 G/DL (32-36); MEAN CORPUSCULAR VOLUME 88 FL (80-99); MEAN PLATELET VOLUME 9.5 FL (7.4-10.4); MONOCYTES # (AUTO) 0.7 X 10^3 (0.0-1.0); MONOCYTES % (AUTO) 12 % (0-12); NEUTROPHILS # (AUTO) 2.3 X 10^3 (1.8-7.8); NEUTROPHILS % (AUTO) 41 % (42-75); PLATELET COUNT 208 10^3/uL (130-400); RED CELL DISTRIBUTION WIDTH 19.3 % (10.0-14.5); WHITE BLOOD COUNT 5.7 10^3/uL (4.3-11.0)
[2019-02-07 11:00] LABS: ALANINE AMINOTRANSFERASE 23 U/L (0-55); ALBUMIN 3.8 GM/DL (3.2-4.5); ALKALINE PHOSPHATASE 78 U/L (40-136); BILIRUBIN,TOTAL 0.4 MG/DL (0.1-1.0); BUN/CREATININE RATIO 11; CALCIUM 8.7 MG/DL (8.5-10.1); CARBON DIOXIDE 26 MMOL/L (21-32); CHLORIDE 106 MMOL/L (98-107); CREATININE SERUM 0.97 MG/DL (0.60-1.30); GFR ESTIMATED > 60; GLUCOSE 106 MG/DL (70-105); POTASSIUM 4.3 MMOL/L (3.6-5.0); SODIUM 138 MMOL/L (135-145); TOTAL PROTEIN 6.2 GM/DL (6.4-8.2)
[~2019-02-09] VITALS: Ht 165.1 cm; Wt 113.9 kg
[~2019-02-09 12:22] MED LIST changes: +ALTEPLASE 2 MG (CATHFLO) CANCER CENTER IV ONE; +ATROPINE INJ 0.4 MG/ML SDV (CANCER CENTER) INJ SCH; -BARIUM SUSPENSION 2.1% (VANILLA SILQ) 450 ML PO ONE; +BEVACIZUMAB INJECTION 400 MG, BEVACIZUMAB INJECTION 50 MG in NS (IVPB) CANCER CENTER 10... IV SCH; +BEVACIZUMAB IV SCH; +D5W IV SCH; +FLUOROURACIL 0.6 GM in SYRINGE-IVPB 1 SYRINGE IV SCH; +FLUOROURACIL 400 MG in SYRINGE-IVPB 1 SYRINGE IV SCH; +FLUOROURACIL IV SCH; +FOSAPREPITANT DIMEGLUMINE 150 MG in NS (IVPB) CANCER CENTER ONLY 150 ML IV SCH; -IOHEXOL 350 MG/ML 100 ML (OMNIPAQUE 350) VIAL IV ONE; +IRINOTECAN HCL 300 MG in D5W 250 ML IVPB (CANCER CTR) 250 ML IV SCH; +IRINOTECAN HCL IV SCH; +LEUCOVORIN CALCIUM 400 MG in D5W 250 ML IVPB (CANCER CTR) 250 ML IV SCH; +LEUCOVORIN CALCIUM 600 MG in D5W 250 ML IVPB (CANCER CTR) 250 ML IV SCH; -NS 100 ML (IVPB) BAG IV ONE; +NS IV 1000 ML (CANCER CTR) 1,000 ML IV SCH; +NS IV SCH; +ONDANSETRON 8 MG, DEXAMETHASONE 4 MG/NS 50 ML IVPB (Cancer Ctr) IV SCH; +ONDANSETRON MDV (CANCER CENTER 16 MG, DEXAMETHASONE INJECTION 10 MG in NS (IVPB) CANCER... IV SCH; +PALONOSETRON HCL 0.25 MG, DEXAMETHASONE INJECTION 10 MG in NS (IVPB) CANCER CENTER 50 ML IV SCH; -RECEIVED CONTRAST (Hold Metformin) IV SCH; +[UNRECOGNIZED DRUG - OTHER] IV SCH; +oxyCODONE/APAP 10/325MG (PERCOCET 10) TABLET PO ONE
== END 2019-02-13 | disposition home or self-care (01) ==
LOC: ONC 12:22
PROVIDERS: ATTEND Internal Medicine Hematology & Oncology
DX: Z51.11 Encounter for antineoplastic chemotherapy (principal); C18.0 Malignant neoplasm of cecum; C18.2 Malignant neoplasm of ascending colon; C78.7 Secondary malignant neoplasm of liver and intrahepatic bile duct; C77.2 Secondary and unspecified malignant neoplasm of intra-abdominal lymph nodes; F17.210 Nicotine dependence, cigarettes, uncomplicated; E66.01 Morbid (severe) obesity due to excess calories; Z68.41 Body mass index [BMI] 40.0-44.9, adult; Z79.899 Other long term (current) drug therapy; Z90.49 Acquired absence of other specified parts of digestive tract
CPT/HCPCS: 36591; 36593; 80053; 81002; 82378; 82570; 83735; 84156; 85025; 96367; 96368; 96374; 96375; 96409; 96411; 96413; 96415

== ENCOUNTER → 2019-03-15 | Outpatient (CLI) | payer MEDICARE, OTHER ==
[~2019-03-15] MED LIST changes: -ALTEPLASE 2 MG (CATHFLO) CANCER CENTER IV ONE; -ATROPINE INJ 0.4 MG/ML SDV (CANCER CENTER) INJ SCH; +BARIUM SUSPENSION 2.1% (VANILLA SILQ) 450 ML PO ONE; -BEVACIZUMAB INJECTION 400 MG, BEVACIZUMAB INJECTION 50 MG in NS (IVPB) CANCER CENTER 10... IV SCH; -BEVACIZUMAB IV SCH; +CATHETER FLUSH 10 ML SYR IV PRN; -D5W IV SCH; -FLUOROURACIL 0.6 GM in SYRINGE-IVPB 1 SYRINGE IV SCH; -FLUOROURACIL 400 MG in SYRINGE-IVPB 1 SYRINGE IV SCH; -FLUOROURACIL IV SCH; -FOSAPREPITANT DIMEGLUMINE 150 MG in NS (IVPB) CANCER CENTER ONLY 150 ML IV SCH; +HOLD METFORMIN - RECEIVED CONTRAST 20 ML VIAL IV SCH; +IOHEXOL 350 MG/ML 100 ML (OMNIPAQUE 350) VIAL IV ONE; -IRINOTECAN HCL 300 MG in D5W 250 ML IVPB (CANCER CTR) 250 ML IV SCH; -IRINOTECAN HCL IV SCH; -LEUCOVORIN CALCIUM 400 MG in D5W 250 ML IVPB (CANCER CTR) 250 ML IV SCH; -LEUCOVORIN CALCIUM 600 MG in D5W 250 ML IVPB (CANCER CTR) 250 ML IV SCH; -NS IV 1000 ML (CANCER CTR) 1,000 ML IV SCH; -NS IV SCH; -ONDANSETRON 8 MG, DEXAMETHASONE 4 MG/NS 50 ML IVPB (Cancer Ctr) IV SCH; -ONDANSETRON MDV (CANCER CENTER 16 MG, DEXAMETHASONE INJECTION 10 MG in NS (IVPB) CANCER... IV SCH; -PALONOSETRON HCL 0.25 MG, DEXAMETHASONE INJECTION 10 MG in NS (IVPB) CANCER CENTER 50 ML IV SCH; -[UNRECOGNIZED DRUG - OTHER] IV SCH; -oxyCODONE/APAP 10/325MG (PERCOCET 10) TABLET PO ONE
--- NOTE | 2019-03-15 12:39 | Diagnostic Imaging Report ---
PROCEDURE: CT chest with contrast, CT abdomen and pelvis with and without contrast. TECHNIQUE: Pre and post intravenous contrast axial imaging of the abdomen and pelvis and post-contrast axial imaging of the chest were performed. Auto Exposure Controls were utilized during the CT exam to meet ALARA standards for radiation dose reduction. INDICATION: Colon carcinoma with metastases to the liver. Study is performed for followup. COMPARISON: Correlation is made with prior CT from 12/25/2018. CT CHEST: FINDINGS: No axillary, hilar, or mediastinal lymphadenopathy is seen. No pericardial or pleural fluid is identified. Right chest wall port has tip within the SVC right atrial junction. Previously noted nodule adjacent to the major fissure on the right is stable at 4 mm, image 27. No new pulmonary nodules are identified. Postop changes to the right humerus are noted. Postop changes of posterior instrumented fusion in the lower thoracic spine are also seen. Multiple old bilateral rib fractures are seen. IMPRESSION: Stable CT of the chest since study from 12/25/2018. No thoracic lymphadenopathy is seen. Tiny right lung nodule is stable. No new pulmonary nodules are identified. CT ABDOMEN AND PELVIS: FINDINGS: Low-density lesions in the dome of the liver are again noted. The slightly more posterior dome lesion measures about the same at 16-17 mm. Lesion more anterior in the dome is approximately 13 mm compared with 15 mm. Left lobe of the liver lesion is 11 mm compared with 14 mm. A dominant lesion in the inferior right lobe of the liver has increased in size at 32 mm compared with 28 mm. No new liver mass is identified. Gallbladder is unremarkable. There is no biliary ductal dilatation. The pancreas and spleen are unremarkable. No adrenal mass is detected. Kidneys are unremarkable. There is a filter within the inferior vena cava. The aorta is nonaneurysmal. Small fat-containing umbilical hernia is noted. Bowel loops are normal in caliber. Postop changes of right hemicolectomy are again seen. There is no ascites. Shotty lymph nodes in the central retroperitoneum are noted and similar to prior exam. A right iliac node is 20 mm x 12 mm compared with 23 mm x 11 mm. Small left obturator node appears to be stable. Mildly prominent inguinal nodes also appear to be fairly stable. Prostate is enlarged. Bladder is unremarkable. IMPRESSION: 1. Majority of the liver lesions appear to be stable to perhaps slightly decreased in size when compared with a CT from December. The inferior right lobe of the liver lesion has increased slightly in size since prior. No new liver mass is detected. 2. Stable abdominal and pelvic lymph nodes when compared with prior exam. Dictated by: Dictated on workstation # [id number]
== END ==
LOC: RAD 11:22
PROVIDERS: ATTEND Internal Medicine Hematology & Oncology
DX: C18.2 Malignant neoplasm of ascending colon (principal); C78.7 Secondary malignant neoplasm of liver and intrahepatic bile duct; C77.2 Secondary and unspecified malignant neoplasm of intra-abdominal lymph nodes; K76.9 Liver disease, unspecified; Z95.828 Presence of other vascular implants and grafts; Z98.1 Arthrodesis status; Z87.81 Personal history of (healed) traumatic fracture
CPT/HCPCS: 71260; 74178

== ENCOUNTER 2019-05-16 12:10 | Outpatient (RCR) | payer MEDICARE, OTHER ==
[2019-02-20 11:15] LABS: BASOPHILS % (AUTO) 1 % (0-10); EOSINOPHILS # (AUTO) 0.2 10^3/uL (0.0-0.3); EOSINOPHILS % (AUTO) 3 % (0-10); HEMATOCRIT 41 % (40-54); HEMOGLOBIN 13.3 G/DL (13.3-17.7); LYMPHOCYTES # (AUTO) 2.2 X 10^3 (1.0-4.0); LYMPHOCYTES % (AUTO) 40 % (12-44); MEAN CORPUSCULAR HEMOGLOBIN 29 PG (25-34); MEAN CORPUSCULAR HGB CONC 32 G/DL (32-36); MEAN CORPUSCULAR VOLUME 88 FL (80-99); MEAN PLATELET VOLUME 10.3 FL (7.4-10.4); MONOCYTES # (AUTO) 0.7 X 10^3 (0.0-1.0); MONOCYTES % (AUTO) 12 % (0-12); NEUTROPHILS # (AUTO) 2.5 X 10^3 (1.8-7.8); NEUTROPHILS % (AUTO) 44 % (42-75); PLATELET COUNT 171 10^3/uL (130-400); RED CELL DISTRIBUTION WIDTH 19.3 % (10.0-14.5); WHITE BLOOD COUNT 5.6 10^3/uL (4.3-11.0)
[2019-02-20 11:48] LABS: ALANINE AMINOTRANSFERASE 38 U/L (0-55); ALBUMIN 4.1 GM/DL (3.2-4.5); ALKALINE PHOSPHATASE 69 U/L (40-136); BILIRUBIN,TOTAL 0.6 MG/DL (0.1-1.0); BUN/CREATININE RATIO 7; CALCIUM 9.3 MG/DL (8.5-10.1); CARBON DIOXIDE 26 MMOL/L (21-32); CHLORIDE 105 MMOL/L (98-107); CREATININE SERUM 0.98 MG/DL (0.60-1.30); GFR ESTIMATED > 60; GLUCOSE 110 MG/DL (70-105); MAGNESIUM 1.9 MG/DL (1.8-2.4); POTASSIUM 4.2 MMOL/L (3.6-5.0); SODIUM 139 MMOL/L (135-145); TOTAL PROTEIN 6.6 GM/DL (6.4-8.2)
[2019-02-20 12:07] LABS: BILIRUBIN,URINE NEGATIVE (NEGATIVE); CLARITY,URINE CLEAR; COLOR,URINE YELLOW; GLUCOSE, URINE (UA) NEGATIVE (NEGATIVE); KETONES,URINE NEGATIVE (NEGATIVE); LEUKOCYTE ESTERASE ,URINE 1+ (NEGATIVE); NITRITE,URINE NEGATIVE (NEGATIVE); PH,URINE 6 (5-9); PROTEIN,URINE 3+ (NEGATIVE); UROBILINOGEN,URINE 1 MG/DL (NORMAL)
[2019-03-07 10:16] LABS: BASOPHILS % (AUTO) 0 % (0-10); EOSINOPHILS # (AUTO) 0.3 10^3/uL (0.0-0.3); EOSINOPHILS % (AUTO) 4 % (0-10); HEMATOCRIT 40 % (40-54); HEMOGLOBIN 12.7 G/DL (13.3-17.7); LYMPHOCYTES # (AUTO) 2.5 X 10^3 (1.0-4.0); LYMPHOCYTES % (AUTO) 36 % (12-44); MEAN CORPUSCULAR HEMOGLOBIN 28 PG (25-34); MEAN CORPUSCULAR HGB CONC 32 G/DL (32-36); MEAN CORPUSCULAR VOLUME 90 FL (80-99); MEAN PLATELET VOLUME 10.1 FL (7.4-10.4); MONOCYTES # (AUTO) 0.7 X 10^3 (0.0-1.0); MONOCYTES % (AUTO) 10 % (0-12); NEUTROPHILS # (AUTO) 3.5 X 10^3 (1.8-7.8); NEUTROPHILS % (AUTO) 50 % (42-75); PLATELET COUNT 210 10^3/uL (130-400); RED CELL DISTRIBUTION WIDTH 20.1 % (10.0-14.5); WHITE BLOOD COUNT 6.9 10^3/uL (4.3-11.0)
[2019-03-07 10:38] LABS: ALANINE AMINOTRANSFERASE 26 U/L (0-55); ALKALINE PHOSPHATASE 74 U/L (40-136); BILIRUBIN,TOTAL 0.4 MG/DL (0.1-1.0); BUN/CREATININE RATIO 12; CALCIUM 9.2 MG/DL (8.5-10.1); CARBON DIOXIDE 25 MMOL/L (21-32); CHLORIDE 109 MMOL/L (98-107); CREATININE SERUM 1.05 MG/DL (0.60-1.30); GFR ESTIMATED > 60; GLUCOSE 107 MG/DL (70-105); MAGNESIUM 1.8 MG/DL (1.8-2.4); POTASSIUM 4.3 MMOL/L (3.6-5.0); SODIUM 142 MMOL/L (135-145); TOTAL PROTEIN 6.3 GM/DL (6.4-8.2)
[2019-03-20 09:41] LABS: BASOPHILS # (AUTO) 0.1 10^3/uL (0.0-0.1); BASOPHILS % (AUTO) 1 % (0-10); EOSINOPHILS # (AUTO) 0.3 10^3/uL (0.0-0.3); EOSINOPHILS % (AUTO) 5 % (0-10); HEMATOCRIT 39 % (40-54); HEMOGLOBIN 12.4 G/DL (13.3-17.7); LYMPHOCYTES # (AUTO) 2.6 X 10^3 (1.0-4.0); LYMPHOCYTES % (AUTO) 46 % (12-44); MEAN CORPUSCULAR HEMOGLOBIN 28 PG (25-34); MEAN CORPUSCULAR HGB CONC 32 G/DL (32-36); MEAN CORPUSCULAR VOLUME 90 FL (80-99); MEAN PLATELET VOLUME 10.5 FL (7.4-10.4); MONOCYTES # (AUTO) 0.6 X 10^3 (0.0-1.0); MONOCYTES % (AUTO) 11 % (0-12); NEUTROPHILS # (AUTO) 2.1 X 10^3 (1.8-7.8); NEUTROPHILS % (AUTO) 37 % (42-75); PLATELET COUNT 191 10^3/uL (130-400); RED CELL DISTRIBUTION WIDTH 18.2 % (10.0-14.5); WHITE BLOOD COUNT 5.6 10^3/uL (4.3-11.0)
[2019-03-20 09:46] LABS: BILIRUBIN,URINE NEGATIVE (NEGATIVE); CLARITY,URINE CLEAR; COLOR,URINE YELLOW; GLUCOSE, URINE (UA) NEGATIVE (NEGATIVE); KETONES,URINE NEGATIVE (NEGATIVE); LEUKOCYTE ESTERASE ,URINE 1+ (NEGATIVE); NITRITE,URINE NEGATIVE (NEGATIVE); PH,URINE 5 (5-9); PROTEIN,URINE 2+ (NEGATIVE); UROBILINOGEN,URINE NORMAL (NORMAL)
[2019-03-20 10:03] LABS: ALANINE AMINOTRANSFERASE 31 U/L (0-55); ALBUMIN 3.9 GM/DL (3.2-4.5); ALKALINE PHOSPHATASE 82 U/L (40-136); BILIRUBIN,TOTAL 0.3 MG/DL (0.1-1.0); BUN/CREATININE RATIO 10; CALCIUM 8.9 MG/DL (8.5-10.1); CARBON DIOXIDE 25 MMOL/L (21-32); CHLORIDE 105 MMOL/L (98-107); CREATININE SERUM 1.01 MG/DL (0.60-1.30); GFR ESTIMATED > 60; GLUCOSE 119 MG/DL (70-105); MAGNESIUM 1.7 MG/DL (1.8-2.4); POTASSIUM 4.4 MMOL/L (3.6-5.0); SODIUM 138 MMOL/L (135-145); TOTAL PROTEIN 6.4 GM/DL (6.4-8.2)
[2019-04-04 09:03] LABS: BASOPHILS # (AUTO) 0.1 10^3/uL (0.0-0.1); BASOPHILS % (AUTO) 1 % (0-10); EOSINOPHILS # (AUTO) 0.3 10^3/uL (0.0-0.3); EOSINOPHILS % (AUTO) 5 % (0-10); HEMATOCRIT 40 % (40-54); HEMOGLOBIN 12.9 G/DL (13.3-17.7); LYMPHOCYTES # (AUTO) 1.7 X 10^3 (1.0-4.0); LYMPHOCYTES % (AUTO) 29 % (12-44); MEAN CORPUSCULAR HEMOGLOBIN 29 PG (25-34); MEAN CORPUSCULAR HGB CONC 32 G/DL (32-36); MEAN CORPUSCULAR VOLUME 89 FL (80-99); MEAN PLATELET VOLUME 8.9 FL (7.4-10.4); MONOCYTES # (AUTO) 0.7 X 10^3 (0.0-1.0); MONOCYTES % (AUTO) 12 % (0-12); NEUTROPHILS # (AUTO) 3.2 X 10^3 (1.8-7.8); NEUTROPHILS % (AUTO) 53 % (42-75); PLATELET COUNT 223 10^3/uL (130-400); RED CELL DISTRIBUTION WIDTH 18.7 % (10.0-14.5)
[2019-04-04 09:28] LABS: BUN/CREATININE RATIO 12; CALCIUM 9.2 MG/DL (8.5-10.1); CARBON DIOXIDE 24 MMOL/L (21-32); CHLORIDE 105 MMOL/L (98-107); CREATININE SERUM 0.91 MG/DL (0.60-1.30); GFR ESTIMATED > 60; GLUCOSE 127 MG/DL (70-105); POTASSIUM 4.6 MMOL/L (3.6-5.0); SODIUM 140 MMOL/L (135-145)
[2019-04-18 11:06] LABS: BASOPHILS # (AUTO) 0.1 10^3/uL (0.0-0.1); BASOPHILS % (AUTO) 1 % (0-10); EOSINOPHILS # (AUTO) 0.4 10^3/uL (0.0-0.3); EOSINOPHILS % (AUTO) 6 % (0-10); HEMATOCRIT 40 % (40-54); HEMOGLOBIN 12.6 G/DL (13.3-17.7); LYMPHOCYTES # (AUTO) 2.3 X 10^3 (1.0-4.0); LYMPHOCYTES % (AUTO) 34 % (12-44); MEAN CORPUSCULAR HEMOGLOBIN 28 PG (25-34); MEAN CORPUSCULAR HGB CONC 31 G/DL (32-36); MEAN CORPUSCULAR VOLUME 90 FL (80-99); MEAN PLATELET VOLUME 10.2 FL (7.4-10.4); MONOCYTES # (AUTO) 0.7 X 10^3 (0.0-1.0); MONOCYTES % (AUTO) 11 % (0-12); NEUTROPHILS # (AUTO) 3.5 X 10^3 (1.8-7.8); NEUTROPHILS % (AUTO) 50 % (42-75); PLATELET COUNT 179 10^3/uL (130-400)
[2019-04-18 13:22] LABS: ALANINE AMINOTRANSFERASE 24 U/L (0-55); ALKALINE PHOSPHATASE 79 U/L (40-136); BILIRUBIN,TOTAL 0.4 MG/DL (0.1-1.0); BUN/CREATININE RATIO 12; CALCIUM 9.3 MG/DL (8.5-10.1); CARBON DIOXIDE 26 MMOL/L (21-32); CHLORIDE 105 MMOL/L (98-107); GFR ESTIMATED > 60; GLUCOSE 133 MG/DL (70-105); POTASSIUM 4.1 MMOL/L (3.6-5.0); SODIUM 140 MMOL/L (135-145); TOTAL PROTEIN 6.7 GM/DL (6.4-8.2)
[2019-05-02 09:06] LABS: BASOPHILS % (AUTO) 0 % (0-10); EOSINOPHILS # (AUTO) 0.3 10^3/uL (0.0-0.3); EOSINOPHILS % (AUTO) 5 % (0-10); HEMATOCRIT 43 % (40-54); HEMOGLOBIN 13.6 G/DL (13.3-17.7); LYMPHOCYTES # (AUTO) 1.9 X 10^3 (1.0-4.0); LYMPHOCYTES % (AUTO) 26 % (12-44); MEAN CORPUSCULAR HEMOGLOBIN 28 PG (25-34); MEAN CORPUSCULAR HGB CONC 32 G/DL (32-36); MEAN CORPUSCULAR VOLUME 88 FL (80-99); MEAN PLATELET VOLUME 9.6 FL (7.4-10.4); MONOCYTES # (AUTO) 0.8 X 10^3 (0.0-1.0); MONOCYTES % (AUTO) 11 % (0-12); NEUTROPHILS # (AUTO) 4.3 X 10^3 (1.8-7.8); NEUTROPHILS % (AUTO) 58 % (42-75); PLATELET COUNT 205 10^3/uL (130-400); RED CELL DISTRIBUTION WIDTH 18.4 % (10.0-14.5); WHITE BLOOD COUNT 7.4 10^3/uL (4.3-11.0)
[2019-05-02 09:24] LABS: BUN/CREATININE RATIO 8; CALCIUM 9.4 MG/DL (8.5-10.1); CARBON DIOXIDE 27 MMOL/L (21-32); CHLORIDE 104 MMOL/L (98-107); CREATININE SERUM 0.91 MG/DL (0.60-1.30); GFR ESTIMATED > 60; GLUCOSE 96 MG/DL (70-105); POTASSIUM 4.7 MMOL/L (3.6-5.0); SODIUM 139 MMOL/L (135-145)
[~2019-05-16] VITALS: Ht 165.1 cm; Wt 109.3 kg
[2019-05-16 10:39] LABS: BASOPHILS % (AUTO) 0 % (0-10); EOSINOPHILS # (AUTO) 0.3 10^3/uL (0.0-0.3); EOSINOPHILS % (AUTO) 4 % (0-10); HEMATOCRIT 43 % (40-54); HEMOGLOBIN 13.4 G/DL (13.3-17.7); LYMPHOCYTES # (AUTO) 2.4 X 10^3 (1.0-4.0); LYMPHOCYTES % (AUTO) 31 % (12-44); MEAN CORPUSCULAR HEMOGLOBIN 28 PG (25-34); MEAN CORPUSCULAR HGB CONC 32 G/DL (32-36); MEAN CORPUSCULAR VOLUME 89 FL (80-99); MEAN PLATELET VOLUME 9.8 FL (7.4-10.4); MONOCYTES # (AUTO) 0.9 X 10^3 (0.0-1.0); MONOCYTES % (AUTO) 12 % (0-12); NEUTROPHILS # (AUTO) 4.2 X 10^3 (1.8-7.8); NEUTROPHILS % (AUTO) 54 % (42-75); PLATELET COUNT 195 10^3/uL (130-400); RED CELL DISTRIBUTION WIDTH 18.2 % (10.0-14.5); WHITE BLOOD COUNT 7.7 10^3/uL (4.3-11.0)
[2019-05-16 11:03] LABS: ALANINE AMINOTRANSFERASE 17 U/L (0-55); ALBUMIN 3.8 GM/DL (3.2-4.5); ALKALINE PHOSPHATASE 88 U/L (40-136); BILIRUBIN,TOTAL 0.5 MG/DL (0.1-1.0); BUN/CREATININE RATIO 8; CALCIUM 9.2 MG/DL (8.5-10.1); CARBON DIOXIDE 25 MMOL/L (21-32); CHLORIDE 104 MMOL/L (98-107); CREATININE SERUM 0.93 MG/DL (0.60-1.30); GFR ESTIMATED > 60; GLUCOSE 101 MG/DL (70-105); MAGNESIUM 1.8 MG/DL (1.8-2.4); POTASSIUM 4.3 MMOL/L (3.6-5.0); SODIUM 138 MMOL/L (135-145); TOTAL PROTEIN 6.6 GM/DL (6.4-8.2)
[~2019-05-16 12:10] MED LIST changes: +ATROPINE INJ 0.4 MG/ML SDV (CANCER CENTER) INJ SCH; -BARIUM SUSPENSION 2.1% (VANILLA SILQ) 450 ML PO ONE; +BEVACIZUMAB INJECTION 400 MG, BEVACIZUMAB INJECTION 50 MG in NS (IVPB) CANCER CENTER 10... IV SCH; -CATHETER FLUSH 10 ML SYR IV PRN; +D5W IV SCH; +FLUOROURACIL 400 MG in SYRINGE-IVPB 1 SYRINGE IV SCH; +FLUOROURACIL IV SCH; +FOSAPREPITANT DIMEGLUMINE 150 MG in NS (IVPB) CANCER CENTER ONLY 150 ML IV SCH; -HOLD METFORMIN - RECEIVED CONTRAST 20 ML VIAL IV SCH; -IOHEXOL 350 MG/ML 100 ML (OMNIPAQUE 350) VIAL IV ONE; +IRINOTECAN HCL IV SCH; +LEUCOVORIN CALCIUM 400 MG in D5W 250 ML IVPB (CANCER CTR) 250 ML IV SCH; +NS (IVPB) CANCER CENTER 250 ML ONE; +NS IV 1000 ML (CANCER CTR) 1,000 ML IV SCH; +NS IV 500 ML (CANCER CENTER) 500 ML ONE; +NS IV SCH; +ONDANSETRON 8 MG, DEXAMETHASONE 4 MG/NS 50 ML IVPB (Cancer Ctr) IV SCH; +ONDANSETRON MDV (CANCER CENTER 16 MG, DEXAMETHASONE INJECTION 10 MG in NS (IVPB) CANCER... IV SCH; +PALONOSETRON HCL 0.25 MG, DEXAMETHASONE INJECTION 10 MG in NS (IVPB) CANCER CENTER 50 ML IV SCH; +oxyCODONE/APAP 10/325MG (PERCOCET 10) TABLET PO ONE
== END 2019-05-21 | disposition home or self-care (01) ==
LOC: ONC 12:10
PROVIDERS: ATTEND Internal Medicine Hematology & Oncology
DX: Z51.11 Encounter for antineoplastic chemotherapy (principal); C18.0 Malignant neoplasm of cecum; C18.2 Malignant neoplasm of ascending colon; C78.7 Secondary malignant neoplasm of liver and intrahepatic bile duct; C77.2 Secondary and unspecified malignant neoplasm of intra-abdominal lymph nodes; F17.210 Nicotine dependence, cigarettes, uncomplicated; E66.01 Morbid (severe) obesity due to excess calories; Z68.41 Body mass index [BMI] 40.0-44.9, adult; Z79.899 Other long term (current) drug therapy; Z90.49 Acquired absence of other specified parts of digestive tract
CPT/HCPCS: 36591; 80048; 80053; 81002; 82378; 82570; 83735; 84156; 85025; 96367; 96368; 96374; 96375; 96409; 96411; 96413

== ENCOUNTER → 2019-06-05 | Outpatient (CLI) | payer MEDICARE, OTHER ==
[~2019-06-05] MED LIST changes: -ATROPINE INJ 0.4 MG/ML SDV (CANCER CENTER) INJ SCH; -BEVACIZUMAB INJECTION 400 MG, BEVACIZUMAB INJECTION 50 MG in NS (IVPB) CANCER CENTER 10... IV SCH; -D5W IV SCH; -FLUOROURACIL 400 MG in SYRINGE-IVPB 1 SYRINGE IV SCH; -FLUOROURACIL IV SCH; -FOSAPREPITANT DIMEGLUMINE 150 MG in NS (IVPB) CANCER CENTER ONLY 150 ML IV SCH; -IRINOTECAN HCL IV SCH; -LEUCOVORIN CALCIUM 400 MG in D5W 250 ML IVPB (CANCER CTR) 250 ML IV SCH; -NS (IVPB) CANCER CENTER 250 ML ONE; -NS IV 1000 ML (CANCER CTR) 1,000 ML IV SCH; -NS IV 500 ML (CANCER CENTER) 500 ML ONE; -NS IV SCH; -ONDANSETRON 8 MG, DEXAMETHASONE 4 MG/NS 50 ML IVPB (Cancer Ctr) IV SCH; -ONDANSETRON MDV (CANCER CENTER 16 MG, DEXAMETHASONE INJECTION 10 MG in NS (IVPB) CANCER... IV SCH; -PALONOSETRON HCL 0.25 MG, DEXAMETHASONE INJECTION 10 MG in NS (IVPB) CANCER CENTER 50 ML IV SCH; -oxyCODONE/APAP 10/325MG (PERCOCET 10) TABLET PO ONE
--- NOTE | 2019-06-05 13:15 | Diagnostic Imaging Report ---
PROCEDURE: CT chest with contrast, CT abdomen and pelvis with and without contrast. TECHNIQUE: Pre and post intravenous contrast axial imaging of the abdomen and pelvis and post contrast axial imaging of the chest were performed. Auto Exposure Controls were utilized during the CT exam to meet ALARA standards for radiation dose reduction. INDICATION: Colon carcinoma. COMPARISON: Correlation is made with prior CT from 03/15/2019. FINDINGS: Postop changes of the right humerus are noted. Right chest wall port is again seen and has the tip at the SVC-right atrial junction. No definite axillary, hilar, or mediastinal lymphadenopathy is seen. No pericardial or pleural fluid is detected. Tiny nodule adjacent to the major fissure on previous study is stable at 4 mm, image 26. There is tiny nodule in the medial aspect of the superior segment of the right lower lobe as well, image 24 measuring 2 to 3 mm. This was barely visible on prior exam but appears to be similar in size. No new pulmonary nodule is seen. There is extensive spinal instrumentation in the thoracic spine. There are multiple healed right-sided rib fractures. IMPRESSION: Stable CT of the chest since 03/15/2019. No thoracic lymphadenopathy or evidence of pulmonary metastatic disease is identified. CT abdomen and pelvis: Beam hardening artifact from patient's spinal hardware does compromise the study. There are small low densities again noted in the liver which may represent cysts. The slightly enlarging lesion in inferior right lobe of the liver again shows some slight increase in size at 3.5 cm AP compared with 3.2 cm on prior exam. Vague low density adjacent to the IVC near the finesse hepatis also shows some apparent increase in size and is suspicious measuring 2.5 cm compared with 1.3 cm. No new liver mass is seen. Gallbladder does contain probable small stone. Pancreas and spleen are unremarkable. No adrenal mass is seen. Kidneys are unremarkable. Aorta is nonaneurysmal. Filter in IVC is noted. Small central retroperitoneal lymph nodes are stable. No definite mesenteric lymphadenopathy is seen. Small fat-containing midline anterior abdominal wall hernias are noted. These are similar to prior exam. Small and large bowel loops are normal in caliber. There is no obstruction. There is no ascites. No definite iliac or inguinal lymphadenopathy is seen. The bladder is unremarkable. Prostate is unremarkable. IMPRESSION: 1. Enlarging inferior right lobe of the liver mass since prior exam from 03/15/2019, concerning for metastatic disease. 2. Cholelithiasis. 3. No evidence of abdominal or pelvic lymphadenopathy. Dictated by: Dictated on workstation # [id number]
== END ==
LOC: RAD 10:48
PROVIDERS: ATTEND Internal Medicine Hematology & Oncology
DX: C18.9 Malignant neoplasm of colon, unspecified (principal); C78.7 Secondary malignant neoplasm of liver and intrahepatic bile duct; C77.2 Secondary and unspecified malignant neoplasm of intra-abdominal lymph nodes; K80.20 Calculus of gallbladder without cholecystitis without obstruction; Z95.828 Presence of other vascular implants and grafts; Z98.890 Other specified postprocedural states
CPT/HCPCS: 71260; 74178

== ENCOUNTER 2019-08-24 11:03 | Outpatient (RCR) | payer MEDICARE, OTHER ==
[2019-05-30 09:40] LABS: BASOPHILS % (AUTO) 1 % (0-10); EOSINOPHILS # (AUTO) 0.4 10^3/uL (0.0-0.3); EOSINOPHILS % (AUTO) 6 % (0-10); HEMATOCRIT 39 % (40-54); HEMOGLOBIN 12.3 G/DL (13.3-17.7); LYMPHOCYTES % (AUTO) 33 % (12-44); MEAN CORPUSCULAR HEMOGLOBIN 28 PG (25-34); MEAN CORPUSCULAR HGB CONC 31 G/DL (32-36); MEAN CORPUSCULAR VOLUME 89 FL (80-99); MEAN PLATELET VOLUME 9.3 FL (7.4-10.4); MONOCYTES # (AUTO) 0.8 X 10^3 (0.0-1.0); MONOCYTES % (AUTO) 14 % (0-12); NEUTROPHILS % (AUTO) 48 % (42-75); PLATELET COUNT 189 10^3/uL (130-400); RED CELL DISTRIBUTION WIDTH 18.6 % (10.0-14.5); WHITE BLOOD COUNT 6.2 10^3/uL (4.3-11.0)
[2019-05-30 09:54] LABS: BUN/CREATININE RATIO 10; CALCIUM 9.1 MG/DL (8.5-10.1); CARBON DIOXIDE 25 MMOL/L (21-32); CHLORIDE 104 MMOL/L (98-107); GFR ESTIMATED > 60; GLUCOSE 126 MG/DL (70-105); POTASSIUM 4.3 MMOL/L (3.6-5.0); SODIUM 139 MMOL/L (135-145)
[2019-06-13 10:10] LABS: BASOPHILS # (AUTO) 0.1 10^3/uL (0.0-0.1); BASOPHILS % (AUTO) 1 % (0-10); EOSINOPHILS # (AUTO) 0.4 10^3/uL (0.0-0.3); EOSINOPHILS % (AUTO) 6 % (0-10); HEMATOCRIT 43 % (40-54); HEMOGLOBIN 13.3 G/DL (13.3-17.7); LYMPHOCYTES # (AUTO) 2.2 X 10^3 (1.0-4.0); LYMPHOCYTES % (AUTO) 29 % (12-44); MEAN CORPUSCULAR HEMOGLOBIN 28 PG (25-34); MEAN CORPUSCULAR HGB CONC 31 G/DL (32-36); MEAN CORPUSCULAR VOLUME 89 FL (80-99); MEAN PLATELET VOLUME 9.7 FL (7.4-10.4); MONOCYTES # (AUTO) 0.9 X 10^3 (0.0-1.0); MONOCYTES % (AUTO) 12 % (0-12); NEUTROPHILS % (AUTO) 53 % (42-75); PLATELET COUNT 220 10^3/uL (130-400); RED CELL DISTRIBUTION WIDTH 18.7 % (10.0-14.5); WHITE BLOOD COUNT 7.7 10^3/uL (4.3-11.0)
[2019-06-13 10:32] LABS: ALANINE AMINOTRANSFERASE 17 U/L (0-55); ALKALINE PHOSPHATASE 92 U/L (40-136); BILIRUBIN,TOTAL 0.3 MG/DL (0.1-1.0); BUN/CREATININE RATIO 11; CALCIUM 9.3 MG/DL (8.5-10.1); CARBON DIOXIDE 26 MMOL/L (21-32); CHLORIDE 105 MMOL/L (98-107); CREATININE SERUM 1.14 MG/DL (0.60-1.30); GFR ESTIMATED > 60; GLUCOSE 118 MG/DL (70-105); POTASSIUM 4.7 MMOL/L (3.6-5.0); SODIUM 141 MMOL/L (135-145)
[2019-06-27 11:04] LABS: BASOPHILS % (AUTO) 1 % (0-10); EOSINOPHILS # (AUTO) 0.2 10^3/uL (0.0-0.3); EOSINOPHILS % (AUTO) 4 % (0-10); HEMATOCRIT 41 % (40-54); HEMOGLOBIN 12.9 G/DL (13.3-17.7); LYMPHOCYTES # (AUTO) 2.2 X 10^3 (1.0-4.0); LYMPHOCYTES % (AUTO) 37 % (12-44); MEAN CORPUSCULAR HEMOGLOBIN 27 PG (25-34); MEAN CORPUSCULAR HGB CONC 31 G/DL (32-36); MEAN CORPUSCULAR VOLUME 87 FL (80-99); MONOCYTES # (AUTO) 0.6 X 10^3 (0.0-1.0); MONOCYTES % (AUTO) 10 % (0-12); NEUTROPHILS # (AUTO) 2.9 X 10^3 (1.8-7.8); NEUTROPHILS % (AUTO) 49 % (42-75); PLATELET COUNT 175 10^3/uL (130-400); RED CELL DISTRIBUTION WIDTH 18.4 % (10.0-14.5)
[2019-06-27 11:30] LABS: ALANINE AMINOTRANSFERASE 17 U/L (0-55); ALBUMIN 3.6 GM/DL (3.2-4.5); ALKALINE PHOSPHATASE 93 U/L (40-136); BILIRUBIN,TOTAL 0.3 MG/DL (0.1-1.0); BUN/CREATININE RATIO 11; CALCIUM 8.8 MG/DL (8.5-10.1); CARBON DIOXIDE 27 MMOL/L (21-32); CHLORIDE 105 MMOL/L (98-107); CREATININE SERUM 0.95 MG/DL (0.60-1.30); GFR ESTIMATED > 60; GLUCOSE 120 MG/DL (70-105); MAGNESIUM 1.3 MG/DL (1.6-2.4); POTASSIUM 4.3 MMOL/L (3.6-5.0); SODIUM 139 MMOL/L (135-145); TOTAL PROTEIN 6.9 GM/DL (6.4-8.2)
[2019-07-04 09:13] LABS: BASOPHILS % (AUTO) 2 % (0-10); EOSINOPHILS # (AUTO) 0.1 10^3/uL (0.0-0.3); EOSINOPHILS % (AUTO) 3 % (0-10); HEMATOCRIT 42 % (40-54); HEMOGLOBIN 13.5 G/DL (13.3-17.7); LYMPHOCYTES # (AUTO) 1.4 X 10^3 (1.0-4.0); LYMPHOCYTES % (AUTO) 67 % (12-44); MEAN CORPUSCULAR HEMOGLOBIN 28 PG (25-34); MEAN CORPUSCULAR HGB CONC 32 G/DL (32-36); MEAN CORPUSCULAR VOLUME 86 FL (80-99); MEAN PLATELET VOLUME 9.9 FL (7.4-10.4); MONOCYTES # (AUTO) 0.2 X 10^3 (0.0-1.0); MONOCYTES % (AUTO) 11 % (0-12); NEUTROPHILS # (AUTO) 0.4 X 10^3 (1.8-7.8); NEUTROPHILS % (AUTO) 18 % (42-75); PLATELET COUNT 189 10^3/uL (130-400); RED CELL DISTRIBUTION WIDTH 17.8 % (10.0-14.5)
[2019-07-04 09:33] LABS: BUN/CREATININE RATIO 10; CALCIUM 9.4 MG/DL (8.5-10.1); CARBON DIOXIDE 28 MMOL/L (21-32); CHLORIDE 98 MMOL/L (98-107); CREATININE SERUM 0.91 MG/DL (0.60-1.30); GFR ESTIMATED > 60; GLUCOSE 121 MG/DL (70-105); MAGNESIUM 1.8 MG/DL (1.6-2.4); POTASSIUM 4.9 MMOL/L (3.6-5.0); SODIUM 132 MMOL/L (135-145)
[2019-07-11 09:28] LABS: BASOPHILS # (AUTO) 0.1 10^3/uL (0.0-0.1); BASOPHILS % (AUTO) 1 % (0-10); EOSINOPHILS % (AUTO) 0 % (0-10); HEMATOCRIT 40 % (40-54); HEMOGLOBIN 12.5 G/DL (13.3-17.7); LYMPHOCYTES % (AUTO) 22 % (12-44); MEAN CORPUSCULAR HEMOGLOBIN 27 PG (25-34); MEAN CORPUSCULAR HGB CONC 31 G/DL (32-36); MEAN CORPUSCULAR VOLUME 87 FL (80-99); MEAN PLATELET VOLUME 9.4 FL (7.4-10.4); MONOCYTES # (AUTO) 1.3 X 10^3 (0.0-1.0); MONOCYTES % (AUTO) 15 % (0-12); NEUTROPHILS # (AUTO) 5.7 X 10^3 (1.8-7.8); NEUTROPHILS % (AUTO) 62 % (42-75); PLATELET COUNT 176 10^3/uL (130-400); RED CELL DISTRIBUTION WIDTH 19.7 % (10.0-14.5); WHITE BLOOD COUNT 9.1 10^3/uL (4.3-11.0)
[2019-07-11 09:49] LABS: ALANINE AMINOTRANSFERASE 19 U/L (0-55); ALBUMIN 3.5 GM/DL (3.2-4.5); ALKALINE PHOSPHATASE 81 U/L (40-136); BILIRUBIN,TOTAL 0.3 MG/DL (0.1-1.0); BUN/CREATININE RATIO 12; CALCIUM 8.7 MG/DL (8.5-10.1); CARBON DIOXIDE 27 MMOL/L (21-32); CHLORIDE 102 MMOL/L (98-107); CREATININE SERUM 1.03 MG/DL (0.60-1.30); GFR ESTIMATED > 60; GLUCOSE 140 MG/DL (70-105); MAGNESIUM 1.5 MG/DL (1.6-2.4); POTASSIUM 4.4 MMOL/L (3.6-5.0); SODIUM 135 MMOL/L (135-145); TOTAL PROTEIN 6.6 GM/DL (6.4-8.2)
[2019-07-18 09:36] LABS: BASOPHILS # (AUTO) 0.1 10^3/uL (0.0-0.1); BASOPHILS % (AUTO) 1 % (0-10); EOSINOPHILS % (AUTO) 0 % (0-10); HEMATOCRIT 39 % (40-54); HEMOGLOBIN 12.4 G/DL (13.3-17.7); LYMPHOCYTES # (AUTO) 2.2 X 10^3 (1.0-4.0); LYMPHOCYTES % (AUTO) 30 % (12-44); MEAN CORPUSCULAR HEMOGLOBIN 28 PG (25-34); MEAN CORPUSCULAR HGB CONC 32 G/DL (32-36); MEAN CORPUSCULAR VOLUME 88 FL (80-99); MEAN PLATELET VOLUME 8.9 FL (7.4-10.4); MONOCYTES # (AUTO) 0.7 X 10^3 (0.0-1.0); MONOCYTES % (AUTO) 10 % (0-12); NEUTROPHILS # (AUTO) 4.3 X 10^3 (1.8-7.8); NEUTROPHILS % (AUTO) 59 % (42-75); PLATELET COUNT 356 10^3/uL (130-400); RED CELL DISTRIBUTION WIDTH 20.6 % (10.0-14.5); WHITE BLOOD COUNT 7.2 10^3/uL (4.3-11.0)
[2019-07-18 10:01] LABS: BUN/CREATININE RATIO 11; CALCIUM 8.8 MG/DL (8.5-10.1); CARBON DIOXIDE 23 MMOL/L (21-32); CHLORIDE 105 MMOL/L (98-107); CREATININE SERUM 0.72 MG/DL (0.60-1.30); GFR ESTIMATED > 60; GLUCOSE 104 MG/DL (70-105); MAGNESIUM 1.9 MG/DL (1.6-2.4); POTASSIUM 4.1 MMOL/L (3.6-5.0); SODIUM 137 MMOL/L (135-145)
[2019-07-25 09:40] LABS: BASOPHILS # (AUTO) 0.1 10^3/uL (0.0-0.1); BASOPHILS % (AUTO) 1 % (0-10); EOSINOPHILS # (AUTO) 0.3 10^3/uL (0.0-0.3); EOSINOPHILS % (AUTO) 4 % (0-10); HEMATOCRIT 42 % (40-54); LYMPHOCYTES # (AUTO) 2.6 X 10^3 (1.0-4.0); LYMPHOCYTES % (AUTO) 37 % (12-44); MEAN CORPUSCULAR HEMOGLOBIN 27 PG (25-34); MEAN CORPUSCULAR HGB CONC 31 G/DL (32-36); MEAN CORPUSCULAR VOLUME 87 FL (80-99); MEAN PLATELET VOLUME 9.3 FL (7.4-10.4); MONOCYTES % (AUTO) 14 % (0-12); NEUTROPHILS # (AUTO) 3.2 X 10^3 (1.8-7.8); NEUTROPHILS % (AUTO) 45 % (42-75); PLATELET COUNT 282 10^3/uL (130-400); RED CELL DISTRIBUTION WIDTH 20.6 % (10.0-14.5); WHITE BLOOD COUNT 7.1 10^3/uL (4.3-11.0)
[2019-08-01 15:02] LABS: BASOPHILS % (AUTO) 0 % (0-10); EOSINOPHILS # (AUTO) 0.8 10^3/uL (0.0-0.3); EOSINOPHILS % (AUTO) 11 % (0-10); HEMATOCRIT 41 % (40-54); HEMOGLOBIN 12.8 G/DL (13.3-17.7); LYMPHOCYTES # (AUTO) 2.9 X 10^3 (1.0-4.0); LYMPHOCYTES % (AUTO) 42 % (12-44); MEAN CORPUSCULAR HEMOGLOBIN 28 PG (25-34); MEAN CORPUSCULAR HGB CONC 32 G/DL (32-36); MEAN CORPUSCULAR VOLUME 89 FL (80-99); MEAN PLATELET VOLUME 9.9 FL (7.4-10.4); MONOCYTES # (AUTO) 0.5 X 10^3 (0.0-1.0); MONOCYTES % (AUTO) 8 % (0-12); NEUTROPHILS # (AUTO) 2.7 X 10^3 (1.8-7.8); NEUTROPHILS % (AUTO) 39 % (42-75); PLATELET COUNT 252 10^3/uL (130-400); RED CELL DISTRIBUTION WIDTH 20.1 % (10.0-14.5); WHITE BLOOD COUNT 6.9 10^3/uL (4.3-11.0)
[2019-08-01 15:17] LABS: BUN/CREATININE RATIO 18; CALCIUM 9.4 MG/DL (8.5-10.1); CARBON DIOXIDE 26 MMOL/L (21-32); CHLORIDE 106 MMOL/L (98-107); CREATININE SERUM 0.82 MG/DL (0.60-1.30); GFR ESTIMATED > 60; GLUCOSE 102 MG/DL (70-105); POTASSIUM 4.3 MMOL/L (3.6-5.0); SODIUM 140 MMOL/L (135-145)
[2019-08-08 10:08] LABS: BASOPHILS % (AUTO) 0 % (0-10); EOSINOPHILS # (AUTO) 0.4 10^3/uL (0.0-0.3); EOSINOPHILS % (AUTO) 5 % (0-10); HEMATOCRIT 39 % (40-54); HEMOGLOBIN 12.4 G/DL (13.3-17.7); LYMPHOCYTES # (AUTO) 2.3 X 10^3 (1.0-4.0); LYMPHOCYTES % (AUTO) 31 % (12-44); MEAN CORPUSCULAR HEMOGLOBIN 28 PG (25-34); MEAN CORPUSCULAR HGB CONC 32 G/DL (32-36); MEAN CORPUSCULAR VOLUME 89 FL (80-99); MEAN PLATELET VOLUME 9.7 FL (7.4-10.4); MONOCYTES # (AUTO) 0.8 X 10^3 (0.0-1.0); MONOCYTES % (AUTO) 11 % (0-12); NEUTROPHILS # (AUTO) 3.9 X 10^3 (1.8-7.8); NEUTROPHILS % (AUTO) 53 % (42-75); PLATELET COUNT 179 10^3/uL (130-400); RED CELL DISTRIBUTION WIDTH 20.4 % (10.0-14.5); WHITE BLOOD COUNT 7.4 10^3/uL (4.3-11.0)
[2019-08-08 10:38] LABS: ALANINE AMINOTRANSFERASE 40 U/L (0-55); ALBUMIN 3.7 GM/DL (3.2-4.5); ALKALINE PHOSPHATASE 89 U/L (40-136); BILIRUBIN,TOTAL 0.4 MG/DL (0.1-1.0); BUN/CREATININE RATIO 11; CALCIUM 8.8 MG/DL (8.5-10.1); CARBON DIOXIDE 27 MMOL/L (21-32); CHLORIDE 107 MMOL/L (98-107); CREATININE SERUM 0.81 MG/DL (0.60-1.30); GFR ESTIMATED > 60; GLUCOSE 105 MG/DL (70-105); POTASSIUM 4.3 MMOL/L (3.6-5.0); SODIUM 140 MMOL/L (135-145); TOTAL PROTEIN 6.7 GM/DL (6.4-8.2)
[2019-08-22 11:47] LABS: BUN/CREATININE RATIO 14; CALCIUM 8.5 MG/DL (8.5-10.1); CARBON DIOXIDE 23 MMOL/L (21-32); CHLORIDE 105 MMOL/L (98-107); CREATININE SERUM 1.13 MG/DL (0.60-1.30); GFR ESTIMATED > 60; GLUCOSE 102 MG/DL (70-105); POTASSIUM 4.5 MMOL/L (3.6-5.0); SODIUM 137 MMOL/L (135-145)
[2019-08-22 11:48] LABS: WHITE BLOOD COUNT 6.7 10^3/uL (4.3-11.0)
[2019-08-22 11:49] LABS: BASOPHILS % (AUTO) 1 % (0-10); EOSINOPHILS # (AUTO) 0.2 10^3/uL (0.0-0.3); EOSINOPHILS % (AUTO) 3 % (0-10); HEMATOCRIT 40 % (40-54); HEMOGLOBIN 12.5 G/DL (13.3-17.7); LYMPHOCYTES # (AUTO) 2.7 X 10^3 (1.0-4.0); LYMPHOCYTES % (AUTO) 40 % (12-44); MEAN CORPUSCULAR HEMOGLOBIN 27 PG (25-34); MEAN CORPUSCULAR HGB CONC 31 G/DL (32-36); MEAN CORPUSCULAR VOLUME 88 FL (80-99); MEAN PLATELET VOLUME 9.1 FL (7.4-10.4); MONOCYTES # (AUTO) 0.7 X 10^3 (0.0-1.0); MONOCYTES % (AUTO) 11 % (0-12); NEUTROPHILS % (AUTO) 46 % (42-75); PLATELET COUNT 254 10^3/uL (130-400); RED CELL DISTRIBUTION WIDTH 19.8 % (10.0-14.5)
[2019-08-22 12:00] LABS: ALANINE AMINOTRANSFERASE 26 U/L (0-55); ALBUMIN 3.7 GM/DL (3.2-4.5); ALKALINE PHOSPHATASE 81 U/L (40-136); BILIRUBIN,TOTAL 0.3 MG/DL (0.1-1.0); TOTAL PROTEIN 6.9 GM/DL (6.4-8.2)
[~2019-08-24] VITALS: Ht 165.1 cm; Wt 110.2 kg
[~2019-08-24 11:03] MED LIST changes: +ATROPINE INJ 0.4 MG/ML SDV (CANCER CENTER) INJ SCH; +BEVACIZUMAB INJECTION 400 MG, BEVACIZUMAB INJECTION 50 MG in NS (IVPB) CANCER CENTER 10... IV SCH; -BISA10SU6 RC; +BISA10SU8 RC; +D5W IV SCH; +FAMOTIDINE 20MG/2ML IV (CANCER CTR) IV SCH; +FILGRASTIM 480 MCG/1.6 ML VIAL CANCER CENTER SQ SCH; +FLU QUADRIvalent (5+ YOA) 2019-2020 (Cancer Ctr) 0.5 ML IM ONE; +FLUOROURACIL 400 MG in SYRINGE-IVPB 1 SYRINGE IV SCH; +FLUOROURACIL IV SCH; +FOSAPREPITANT DIMEGLUMINE 150 MG in NS (IVPB) CANCER CENTER ONLY 150 ML IV SCH; +IRINOTECAN HCL IV SCH; +LEUCOVORIN CALCIUM 400 MG in D5W 250 ML IVPB (CANCER CTR) 250 ML IV SCH; +NS IV 1000 ML (CANCER CTR) 1,000 ML IV SCH; +NS IV 500 ML (CANCER CENTER) 500 ML ONE; +NS IV SCH; +ONDANSETRON 8 MG, DEXAMETHASONE 4 MG/NS 50 ML IVPB (Cancer Ctr) IV SCH; +ONDANSETRON MDV (CANCER CENTER 16 MG, DEXAMETHASONE INJECTION 10 MG in NS (IVPB) CANCER... IV SCH; +ONDANSETRON MDV (CANCER CENTER 8 MG, DEXAMETHASONE INJ (CANCER CTR) 4 MG in NS (IVPB) C... IV ONE; +PALONOSETRON HCL 0.25 MG, DEXAMETHASONE INJECTION 10 MG in NS (IVPB) CANCER CENTER 50 ML IV SCH; +morphine INJ 4 MG/ML 1 ML (CANCER CTR) ONE
== END 2019-08-28 | disposition home or self-care (01) ==
LOC: ONC 11:03
PROVIDERS: ATTEND Internal Medicine Hematology & Oncology
DX: Z51.11 Encounter for antineoplastic chemotherapy (principal); C18.0 Malignant neoplasm of cecum; C18.2 Malignant neoplasm of ascending colon; C78.7 Secondary malignant neoplasm of liver and intrahepatic bile duct; C77.2 Secondary and unspecified malignant neoplasm of intra-abdominal lymph nodes; F17.210 Nicotine dependence, cigarettes, uncomplicated; E66.01 Morbid (severe) obesity due to excess calories; Z68.41 Body mass index [BMI] 40.0-44.9, adult; Z79.899 Other long term (current) drug therapy; Z90.49 Acquired absence of other specified parts of digestive tract
CPT/HCPCS: 36415; 36591; 80048; 80053; 82378; 82570; 83735; 84156; 85025; 87040; 87804; 96360; 96361; 96367; 96368; 96372; 96374; 96375; 96376; 96409; 96411; 96413; 96415

== ENCOUNTER 2019-09-19 10:53 | Outpatient (RCR) | payer MEDICARE, OTHER ==
[2019-09-05 08:39] LABS: BASOPHILS % (AUTO) 1 % (0-10); EOSINOPHILS # (AUTO) 0.2 10^3/uL (0.0-0.3); EOSINOPHILS % (AUTO) 3 % (0-10); HEMATOCRIT 38 % (40-54); HEMOGLOBIN 11.7 G/DL (13.3-17.7); LYMPHOCYTES # (AUTO) 2.1 X 10^3 (1.0-4.0); LYMPHOCYTES % (AUTO) 38 % (12-44); MEAN CORPUSCULAR HGB CONC 31 G/DL (32-36); MEAN CORPUSCULAR VOLUME 89 FL (80-99); MEAN PLATELET VOLUME 9.2 FL (7.4-10.4); MONOCYTES # (AUTO) 0.9 X 10^3 (0.0-1.0); MONOCYTES % (AUTO) 16 % (0-12); NEUTROPHILS # (AUTO) 2.3 X 10^3 (1.8-7.8); NEUTROPHILS % (AUTO) 43 % (42-75); PLATELET COUNT 195 10^3/uL (130-400); RED CELL DISTRIBUTION WIDTH 19.8 % (10.0-14.5); WHITE BLOOD COUNT 5.5 10^3/uL (4.3-11.0)
[2019-09-05 08:41] LABS: MEAN CORPUSCULAR HEMOGLOBIN 27 PG (25-34)
[2019-09-05 08:50] LABS: CARBON DIOXIDE 25 MMOL/L (21-32); CHLORIDE 105 MMOL/L (98-107); POTASSIUM 4.3 MMOL/L (3.6-5.0); SODIUM 139 MMOL/L (135-145)
[2019-09-05 08:51] LABS: ALANINE AMINOTRANSFERASE 25 U/L (0-55); ALBUMIN 3.7 GM/DL (3.2-4.5); ALKALINE PHOSPHATASE 92 U/L (40-136); BILIRUBIN,TOTAL 0.3 MG/DL (0.1-1.0); BUN/CREATININE RATIO 10; CALCIUM 8.9 MG/DL (8.5-10.1); CREATININE SERUM 0.96 MG/DL (0.60-1.30); GFR ESTIMATED > 60; GLUCOSE 120 MG/DL (70-105); MAGNESIUM 1.7 MG/DL (1.6-2.4); TOTAL PROTEIN 6.5 GM/DL (6.4-8.2)
[~2019-09-19 10:53] MED LIST changes: -FILGRASTIM 480 MCG/1.6 ML VIAL CANCER CENTER SQ SCH; -FLU QUADRIvalent (5+ YOA) 2019-2020 (Cancer Ctr) 0.5 ML IM ONE; -FLUOROURACIL 400 MG in SYRINGE-IVPB 1 SYRINGE IV SCH; -FLUOROURACIL IV SCH; -NS IV 500 ML (CANCER CENTER) 500 ML ONE; -NS IV SCH; -ONDANSETRON MDV (CANCER CENTER 16 MG, DEXAMETHASONE INJECTION 10 MG in NS (IVPB) CANCER... IV SCH; -ONDANSETRON MDV (CANCER CENTER 8 MG, DEXAMETHASONE INJ (CANCER CTR) 4 MG in NS (IVPB) C... IV ONE; -morphine INJ 4 MG/ML 1 ML (CANCER CTR) ONE
== END 2019-12-04 | disposition home or self-care (01) ==
LOC: ONC 10:53
PROVIDERS: ATTEND Internal Medicine Hematology & Oncology
DX: Z51.11 Encounter for antineoplastic chemotherapy (principal); C18.0 Malignant neoplasm of cecum; C18.2 Malignant neoplasm of ascending colon; C78.7 Secondary malignant neoplasm of liver and intrahepatic bile duct; C77.2 Secondary and unspecified malignant neoplasm of intra-abdominal lymph nodes; F17.210 Nicotine dependence, cigarettes, uncomplicated; E66.01 Morbid (severe) obesity due to excess calories; K64.8 Other hemorrhoids; Z79.899 Other long term (current) drug therapy; Z90.49 Acquired absence of other specified parts of digestive tract; Z68.41 Body mass index [BMI] 40.0-44.9, adult; Z80.0 Family history of malignant neoplasm of digestive organs
CPT/HCPCS: 36591; 80053; 82378; 83735; 85025; 96367; 96368; 96374; 96375; 96411; 96413; 99213

== ENCOUNTER → 2019-10-29 | Outpatient (CLI) | payer MEDICARE ==
[~2019-10-29] MED LIST changes: -ATROPINE INJ 0.4 MG/ML SDV (CANCER CENTER) INJ SCH; -BEVACIZUMAB INJECTION 400 MG, BEVACIZUMAB INJECTION 50 MG in NS (IVPB) CANCER CENTER 10... IV SCH; -D5W IV SCH; -FAMOTIDINE 20MG/2ML IV (CANCER CTR) IV SCH; -FOSAPREPITANT DIMEGLUMINE 150 MG in NS (IVPB) CANCER CENTER ONLY 150 ML IV SCH; -IRINOTECAN HCL IV SCH; -LEUCOVORIN CALCIUM 400 MG in D5W 250 ML IVPB (CANCER CTR) 250 ML IV SCH; -NS IV 1000 ML (CANCER CTR) 1,000 ML IV SCH; -ONDANSETRON 8 MG, DEXAMETHASONE 4 MG/NS 50 ML IVPB (Cancer Ctr) IV SCH; -PALONOSETRON HCL 0.25 MG, DEXAMETHASONE INJECTION 10 MG in NS (IVPB) CANCER CENTER 50 ML IV SCH
[2019-10-29 12:05] LABS: BASOPHILS % (AUTO) 0 % (0-10); EOSINOPHILS # (AUTO) 0.5 10^3/uL (0.0-0.3); EOSINOPHILS % (AUTO) 7 % (0-10); HEMATOCRIT 41 % (40-54); HEMOGLOBIN 13.1 G/DL (13.3-17.7); LYMPHOCYTES # (AUTO) 1.3 X 10^3 (1.0-4.0); LYMPHOCYTES % (AUTO) 18 % (12-44); MEAN CORPUSCULAR HEMOGLOBIN 27 PG (25-34); MEAN CORPUSCULAR HGB CONC 32 G/DL (32-36); MEAN CORPUSCULAR VOLUME 86 FL (80-99); MEAN PLATELET VOLUME 8.8 FL (7.4-10.4); MONOCYTES # (AUTO) 0.8 X 10^3 (0.0-1.0); MONOCYTES % (AUTO) 11 % (0-12); NEUTROPHILS # (AUTO) 4.7 X 10^3 (1.8-7.8); NEUTROPHILS % (AUTO) 64 % (42-75); PLATELET COUNT 340 10^3/uL (130-400); RED CELL DISTRIBUTION WIDTH 18.2 % (10.0-14.5); WHITE BLOOD COUNT 7.3 10^3/uL (4.3-11.0)
[2019-10-29 12:29] LABS: ALANINE AMINOTRANSFERASE 25 U/L (0-55); ALBUMIN 3.3 GM/DL (3.2-4.5); ALKALINE PHOSPHATASE 114 U/L (40-136); AMYLASE 66 U/L (25-125); BILIRUBIN,DIRECT 0.3 MG/DL (0.0-0.3); BILIRUBIN,TOTAL 0.5 MG/DL (0.1-1.0); BUN/CREATININE RATIO 13; CALCIUM 8.7 MG/DL (8.5-10.1); CARBON DIOXIDE 25 MMOL/L (21-32); CHLORIDE 104 MMOL/L (98-107); CREATININE SERUM 0.79 MG/DL (0.60-1.30); GFR ESTIMATED > 60; GLUCOSE 100 MG/DL (70-105); LIPASE 129 U/L (8-78); MAGNESIUM 1.9 MG/DL (1.6-2.4); PHOSPHORUS 2.4 MG/DL (2.3-4.7); POTASSIUM 4.3 MMOL/L (3.6-5.0); SODIUM 138 MMOL/L (135-145); TOTAL PROTEIN 7.3 GM/DL (6.4-8.2); TRIGLYCERIDES 142 MG/DL (<150); URIC ACID 4.9 MG/DL (2.6-7.2)
== END ==
LOC: LAB 11:15
DX: C18.9 Malignant neoplasm of colon, unspecified (principal)
CPT/HCPCS: 36415; 80053; 82150; 82248; 82977; 83615; 83690; 83735; 84100; 84478; 84550; 85025

== ENCOUNTER 2020-03-19 18:40 | Emergency (ER) | payer MEDICARE ==
[~2020-03-19] VITALS: Ht 165 cm; Wt 104.0 kg
--- OUTSIDE RECORDS SUMMARY | 2020-03-19 19:37 | XMS REPORT | Continuity of Care Document ---
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 MD, Ot Z90.49 ACQUIRED ABSENCE OF OTHER SPECIFIED PART 12/07/2017 ASHA SALGADO MD, Ot D12.5 BENIGN NEOPLASM OF SIGMOID COLON 12/07/2017 ASHA SALGADO MD, Ot J44.9 CHRONIC OBSTRUCTIVE PULMONARY DISEASE, U 12/07/2017 ASHA SALGADO MD, Ot K57.30 DVRTCLOS OF LG INT W/O PERFORATION OR AB 12/07/2017 ASHA SALGADO MD, Ot Z79.899 OTHER PANTOGRAPHER (CURRENT) DRUG THERAPY 12/07/2017 ASHA SALGADO MD Ot Z85.038 PERSONAL HISTORY OF MALIGNANT NEOPLASM O 12/07/2017 ASHA SALGADO MD Ot Z87.891 PERSONAL HISTORY OF NICOTINE DEPENDENCE 12/07/2017 ASHA SALGADO MD Ot Z92.21 PERSONAL HISTORY OF ANTINEOPLASTIC CHEMO 12/11/2017 ASHA SALGADO MD Ot D12.5 BENIGN NEOPLASM OF SIGMOID COLON 12/11/2017 ASHA SALGADO MD Ot J44.9 CHRONIC OBSTRUCTIVE PULMONARY DISEASE, U 12/11/2017 ASHA SALGADO MD Ot K57.30 DVRTCLOS OF LG INT W/O PERFORATION OR AB 12/11/2017 ASHA SALGADO MD, Ot Z79.899 OTHER SNF (CURRENT) DRUG THERAPY 12/11/2017 ASHA SALGADO MD Ot Z85.038 PERSONAL HISTORY OF MALIGNANT NEOPLASM O 12/11/2017 ASHA SALGADO MD, Ot Z87.891 PERSONAL HISTORY OF NICOTINE DEPENDENCE 12/11/2017 ASHA SALGADO MD Ot Z92.21 PERSONAL HISTORY OF ANTINEOPLASTIC CHEMO 12/14/2017 JUAN J DEJESUS MD Ot 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 OF ASCENDING COLON 12/14/2017 JUAN J DEJESUS MD Ot 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 AND UNSP MALIGNANT NEOPLASM OF 12/14/2017 JUAN J DEJESUS MD Ot Z90.49 ACQUIRED ABSENCE OF OTHER SPECIFIED PART 12/21/2017 JUAN J DEJESUS MD Ot 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 12/21/2017 JUAN J DEJESUS MD Ot C78.7 SECONDARY MALIG NEOPLASM OF LIVER AND IN 12/21/2017 JUAN J DEJESUS MD Ot K76.9 LIVER DISEASE, UNSPECIFIED 12/21/2017 JUAN J DEJESUS MD Ot Z90.49 ACQUIRED ABSENCE OF OTHER SPECIFIED PART 12/28/2017 RISA ARAMBULA MD, Ot C18.9 MALIGNANT NEOPLASM OF COLON, UNSPECIFIED 12/28/2017 RISA ARAMBULA MD Ot I10 ESSENTIAL (PRIMARY) HYPERTENSION 12/28/2017 RISA ARAMBULA MD Ot R06.02 SHORTNESS OF BREATH 12/28/2017 RISA ARAMBULA MD Ot T78.2XXA ANAPHYLACTIC SHOCK, UNSPECIFIED, INITIAL 12/28/2017 RISA ARAMBULA MD Ot Z82.49 FAMILY HX OF ISCHEM HEART DIS AND OTH DI 12/28/2017 RISA ARAMBULA MD Ot Z87.891 PERSONAL HISTORY OF NICOTINE DEPENDENCE 12/28/2017 RISA ARAMBULA MD, Ot Z88.2 ALLERGY STATUS TO SULFONAMIDES STATUS 12/28/2017 RISA ARAMBULA MD Ot Z90.89 ACQUIRED ABSENCE OF OTHER ORGANS 12/28/2017 RISA ARAMBULA MD Ot Z92.21 PERSONAL HISTORY OF ANTINEOPLASTIC CHEMO 12/28/2017 CHRIS YUEN, MONIE R Ot R10. 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 12/29/2017 JUAN J DEJESUS MD Ot C78.7 SECONDARY MALIG NEOPLASM OF LIVER AND IN 12/29/2017 JUAN J DEJESUS MD Ot K76.9 LIVER DISEASE, UNSPECIFIED 12/29/2017 JUAN J DEJESUS MD Ot Z23 ENCOUNTER FOR IMMUNIZATION 12/29/2017 JUAN J DEJESUS MD Ot Z51.11 ENCOUNTER FOR ANTINEOPLASTIC CHEMOTHERAP 12/29/2017 JUAN J DEJESUS MD Ot Z90.49 ACQUIRED ABSENCE OF OTHER SPECIFIED PART 12/29/2017 SAMIR VARGAS Ot 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 12/29/2017 SAMIR VARGAS Ot C78.7 SECONDARY MALIG NEOPLASM OF LIVER AND IN 12/29/2017 SAMIR VARGAS Ot K76.9 LIVER DISEASE, UNSPECIFIED 12/29/2017 SAMIR VARGAS Ot Z90.49 ACQUIRED ABSENCE OF OTHER SPECIFIED PART 12/30/2017 RISA ARAMBULA MD Ot C18.9 MALIGNANT NEOPLASM OF COLON, UNSPECIFIED 12/30/2017 RISA ARAMBULA MD Ot I10 ESSENTIAL (PRIMARY) HYPERTENSION 12/30/2017 RISA ARAMBULA MD Ot R06.02 SHORTNESS OF BREATH 12/30/2017 RISA ARAMBULA MD Ot T78.2XXA ANAPHYLACTIC SHOCK, UNSPECIFIED, INITIAL 12/30/2017 RISA ARAMBULA MD, Ot Z82.49 FAMILY HX OF ISCHEM HEART DIS AND OTH DI 12/30/2017 RISA ARAMBULA MD, Ot Z87.891 PERSONAL HISTORY OF NICOTINE DEPENDENCE 12/30/2017 RISA ARAMBULA MD, Ot Z88.2 ALLERGY STATUS TO SULFONAMIDES STATUS 12/30/2017 RISA ARAMBULA MD, Ot Z90.89 ACQUIRED ABSENCE OF OTHER ORGANS 12/30/2017 RISA ARAMBULA MD Ot Z92.21 PERSONAL HISTORY OF ANTINEOPLASTIC CHEMO 01/03/2018 ALICIA, KURTAN N Ot 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 01/03/2018 ALICIASAMIR N Ot C78.7 SECONDARY MALIG NEOPLASM OF LIVER AND IN 01/03/2018 ALICIA KURTCARLA N Ot K76.9 LIVER DISEASE, UNSPECIFIED 01/03/2018 ALICIAKURTAN N Ot Z90.49 ACQUIRED ABSENCE OF OTHER SPECIFIED PART 01/11/2018 ALICIA, BOBCARLA N Ot 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 89 ENCOUNTER FOR OTHER SPECIFIED SURGICAL A 01/16/2018 YAIR STONE Ot Z98. 1 ARTHRODESIS STATUS 01/18/2018 ALICIA BOBAN N Ot 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 01/18/2018 ALICIA, KURTAN N Ot C78.7 SECONDARY MALIG NEOPLASM OF LIVER AND IN 01/18/2018 ALICIA, SAMIR N Ot K76.9 LIVER DISEASE, UNSPECIFIED 01/18/2018 SAMIR VARGAS Ot Z90.49 ACQUIRED ABSENCE OF OTHER SPECIFIED PART 01/25/2018 YULISSA CASTANEDA MD Ot S22.082S UNSTABLE BURST FRACTURE OF T11-T12 VERTE 01/25/2018 YULISSA CASTANEDA MD Ot X58.XXXS EXPOSURE TO OTHER SPECIFIED FACTORS, SEQ 01/25/2018 YULISSA CASTANEDA MD Ot Y99.8 OTHER EXTERNAL CAUSE STATUS 01/25/2018 YULISSA CASTANEDA MD Ot Z98.1 ARTHRODESIS STATUS 01/25/2018 YULISSA CASTANEDA MD Ot S22.082S UNSTABLE BURST FRACTURE OF T11-T12 VERTE 01/25/2018 YULISSA CASTANEDA MD Ot X58.XXXS EXPOSURE TO OTHER SPECIFIED FACTORS, SEQ 01/25/2018 YULISSA CASTANEDA MD Ot Y99.8 OTHER EXTERNAL CAUSE STATUS 01/25/2018 YULISSA CASTANEDA MD Ot Z98.1 ARTHRODESIS STATUS 01/25/2018 KAMILA FLORES MD Ot V68.01 DISABILITY EXAMINATION 01/25/2018 KAMILA FLORES MD Ot V82.89 SCREEN FOR OTH SPECIF CONDITIONS 01/25/2018 CHRIS YUEN, MONIE R Ot R10. 31 RIGHT LOWER QUADRANT PAIN 01/25/2018 SAMIR VARGAS Ot C18.9 MALIGNANT NEOPLASM OF COLON, UNSPECIFIED 01/25/2018 SAMIR VARGAS Ot K08.9 DISORDER OF TEETH AND SUPPORTING STRUCTU 01/25/2018 SAMIR VARGAS Ot K76.9 LIVER DISEASE, UNSPECIFIED 01/25/2018 SAMIR VARGAS Ot Z90.49 ACQUIRED ABSENCE OF OTHER SPECIFIED PART 01/25/2018 YULISSA CASTANEDA MD Ot S22.082S UNSTABLE BURST FRACTURE OF T11-T12 VERTE 01/25/2018 YULISSA CASTANEDA MD Ot X58.XXXS EXPOSURE TO OTHER SPECIFIED FACTORS, SEQ 01/25/2018 YULISSA CASTANEDA MD Ot Y99.8 OTHER EXTERNAL CAUSE STATUS 01/25/2018 YULISSA CASTANEDA MD Ot Z98.1 ARTHRODESIS STATUS 01/25/2018 JUAN J DEJESUS MD Ot 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 OF ASCENDING COLON 01/25/2018 JUAN J DEJESUS MD Ot 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 AND UNSP MALIGNANT NEOPLASM OF 01/25/2018 JUAN J DEJEUSS MD Ot Z90.49 ACQUIRED ABSENCE OF OTHER SPECIFIED PART 01/25/2018 ALICIA SAMIR Pascual Ot 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 89 ENCOUNTER FOR OTHER SPECIFIED SURGICAL A 01/25/2018 YAIR STONE Ot Z98. 1 ARTHRODESIS STATUS 01/26/2018 YULISSA CASTANEDA MD A Ot S22.082S UNSTABLE BURST FRACTURE OF T11-T12 VERTE 01/26/2018 YULISSA CASTANEDA MD A Ot X58.XXXS EXPOSURE TO OTHER SPECIFIED FACTORS, SEQ 01/26/2018 YULISSA CASTANEDA MD A Ot Y99.8 OTHER EXTERNAL CAUSE STATUS 01/26/2018 YULISSA CASTANEDA MD A Ot Z98.1 ARTHRODESIS STATUS 01/27/2018 YAIR STONE Ot Z48. 89 ENCOUNTER FOR OTHER SPECIFIED SURGICAL A 01/27/2018 YAIR STONE Ot Z98. 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 02/07/2018 ALICIASAMIR Ot 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 OF ASCENDING COLON 02/07/2018 SAMIR VARGAS Ot 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 AND UNSP MALIGNANT NEOPLASM OF 02/07/2018 ALICIASAMIR Ot C78.7 SECONDARY MALIG NEOPLASM OF LIVER AND IN 02/07/2018 ALICIASAMIR Ot E66.01 MORBID (SEVERE) OBESITY DUE TO EXCESS CA 02/07/2018 SAMIR VARGAS Ot F17.210 NICOTINE DEPENDENCE, CIGARETTES, UNCOMPL 02/07/2018 ALICIASAMIR PERSAUD Ot K76.9 LIVER DISEASE, UNSPECIFIED 02/07/2018 SAMIR VARGAS Ot Z51.11 ENCOUNTER FOR ANTINEOPLASTIC CHEMOTHERAP 02/07/2018 SAMIR VARGAS Ot Z68.41 BODY MASS INDEX (BMI) 40.0-44.9, ADULT 02/07/2018 SAMIR VARGAS Ot Z79.899 OTHER PANTOGRAPHER (CURRENT) DRUG THERAPY 02/07/2018 SAMIR VARGAS Ot Z90.49 ACQUIRED ABSENCE OF OTHER SPECIFIED PART 02/07/2018 JUAN J DEJESUS MD Ot 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 02/07/2018 JUAN J DEJESUS MD Ot C78.7 SECONDARY MALIG NEOPLASM OF LIVER AND IN 02/07/2018 JUAN J DEJESUS MD Ot K76.9 LIVER DISEASE, UNSPECIFIED 02/07/2018 JUAN J DEJESUS MD Ot Z90.49 ACQUIRED ABSENCE OF OTHER SPECIFIED PART 02/08/2018 JUAN J DEJESUS MD Ot 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 02/08/2018 JUAN J DEJESUS MD Ot C78.7 SECONDARY MALIG NEOPLASM OF LIVER AND IN 02/08/2018 JUAN J DEJESUS MD Ot K76.9 LIVER DISEASE, UNSPECIFIED 02/08/2018 JUAN J DEJESUS MD Ot Z90.49 ACQUIRED ABSENCE OF OTHER SPECIFIED PART 02/08/2018 JUAN J DEJESUS MD Ot 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 02/08/2018 JUAN J DEJESUS MD Ot C78.7 SECONDARY MALIG NEOPLASM OF LIVER AND IN 02/08/2018 JUAN J DEJESUS MD Ot K76.9 LIVER DISEASE, UNSPECIFIED 02/08/2018 JUAN J DEJESUS MD Ot Z90.49 ACQUIRED ABSENCE OF OTHER SPECIFIED PART 02/09/2018 JUAN J DEJESUS MD Ot 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 31 RIGHT LOWER QUADRANT PAIN 02/15/2018 SAMIR VARGAS Ot C18.9 MALIGNANT NEOPLASM OF COLON, UNSPECIFIED 02/15/2018 SAMIR VARGAS Ot K08.9 DISORDER OF TEETH AND SUPPORTING STRUCTU 02/15/2018 ALICIA BOBCARLA Pascual Ot K76.9 LIVER DISEASE, UNSPECIFIED 02/15/2018 SAMIR VARGAS Ankur Ot Z90.49 ACQUIRED ABSENCE OF OTHER SPECIFIED PART 02/15/2018 YULISSA CASTANEDA MD Ot S22.082S UNSTABLE BURST FRACTURE OF T11-T12 VERTE 02/15/2018 YULISSA CASTANEDA MD Ot X58.XXXS EXPOSURE TO OTHER SPECIFIED FACTORS, SEQ 02/15/2018 YULISSA CASTANEDA MD Ot Y99.8 OTHER EXTERNAL CAUSE STATUS 02/15/2018 YULISSA CASTANEDA MD Ot Z98.1 ARTHRODESIS STATUS 02/15/2018 JUAN J DEJESUS MD, Ot 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 OF ASCENDING COLON 02/15/2018 JUAN J DEJESUS MD, Ot 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 AND UNSP MALIGNANT NEOPLASM OF 02/15/2018 JUAN J DEJESUS MD, Ot Z90.49 ACQUIRED ABSENCE OF OTHER SPECIFIED PART 02/15/2018 YAIR STONE Ot Z48. 89 ENCOUNTER FOR OTHER SPECIFIED SURGICAL A 02/15/2018 YAIR STONE Ot Z98. 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 02/15/2018 JUAN J DEJESUS MD, Ot 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 OF ASCENDING COLON 02/15/2018 JUAN J DEJESUS MD, Ot 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 AND UNSP MALIGNANT NEOPLASM OF 02/15/2018 JUAN J DEJESUS MD, Ot C78.7 SECONDARY MALIG NEOPLASM OF LIVER AND IN 02/15/2018 JUAN J DEJESUS MD Ot E66.01 MORBID (SEVERE) OBESITY DUE TO EXCESS CA 02/15/2018 JUAN J DEJESUS MD Ot F17.210 NICOTINE DEPENDENCE, CIGARETTES, UNCOMPL 02/15/2018 JUAN J DEJESUS MD Ot Z51.11 ENCOUNTER FOR ANTINEOPLASTIC CHEMOTHERAP 02/15/2018 JUAN J DEJESUS MD Ot Z68.41 BODY MASS INDEX (BMI) 40.0-44.9, ADULT 02/15/2018 JUAN J DEJESUS MD Ot Z79.899 OTHER PANTOGRAPHER (CURRENT) DRUG THERAPY 02/15/2018 JUAN J DEJESUS MD Ot Z90.49 ACQUIRED ABSENCE OF OTHER SPECIFIED PART 02/22/2018 JUAN J DEJESUS MD, Ot 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 02/22/2018 OLEG MD, ARITA Ot 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 OF ASCENDING COLON 02/22/2018 JUAN J DEJESUS MD Ot 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 AND UNSP MALIGNANT NEOPLASM OF 02/22/2018 JUAN J DEJESUS MD Ot C78.7 SECONDARY MALIG NEOPLASM OF LIVER AND IN 02/22/2018 JUAN J DEJESUS MD Ot E66.01 MORBID (SEVERE) OBESITY DUE TO EXCESS CA 02/22/2018 JUAN J DEJESUS MD Ot F17.210 NICOTINE DEPENDENCE, CIGARETTES, UNCOMPL 02/22/2018 JUAN J DEJESUS MD Ot Z51.11 ENCOUNTER FOR ANTINEOPLASTIC CHEMOTHERAP 02/22/2018 JUAN J DEJESUS MD Ot Z68.41 BODY MASS INDEX (BMI) 40.0-44.9, ADULT 02/22/2018 JUAN J DEJESUS MD Ot Z79.899 OTHER PANTOGRAPHER (CURRENT) DRUG THERAPY 02/22/2018 JUAN J DEJESUS MD Ot Z90.49 ACQUIRED ABSENCE OF OTHER SPECIFIED PART 03/03/2018 JUAN J DEJESUS MD Ot 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 03/03/2018 JUAN J DEJESUS MD Ot 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 OF ASCENDING COLON 03/03/2018 JUAN J DEJESUS MD Ot 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 AND UNSP MALIGNANT NEOPLASM OF 03/03/2018 JUAN J DEJESUS MD Ot C78.7 SECONDARY MALIG NEOPLASM OF LIVER AND IN 03/03/2018 JUAN J DEJESUS MD Ot E66.01 MORBID (SEVERE) OBESITY DUE TO EXCESS CA 03/03/2018 JUAN J DEJESUS MD Ot F17.210 NICOTINE DEPENDENCE, CIGARETTES, UNCOMPL 03/03/2018 JUAN J DEJESUS MD Ot Z51.11 ENCOUNTER FOR ANTINEOPLASTIC CHEMOTHERAP 03/03/2018 JUAN J DEJESUS MD Ot Z68.41 BODY MASS INDEX (BMI) 40.0-44.9, ADULT 03/03/2018 JUAN J DEJESUS MD Ot Z79.899 OTHER SNF (CURRENT) DRUG THERAPY 03/03/2018 JUAN J DEJESUS MD Ot Z90.49 ACQUIRED ABSENCE OF OTHER SPECIFIED PART 03/03/2018 KAMILA FLORES MD Ot V68.01 DISABILITY EXAMINATION 03/03/2018 KAMILA FLORES MD Ot V82.89 SCREEN FOR OTH SPECIF CONDITIONS 03/03/2018 CHRIS YUEN, MONIE R Ot R10. 31 RIGHT LOWER QUADRANT PAIN 03/03/2018 SAMIR VARGAS Ot C18.9 MALIGNANT NEOPLASM OF COLON, UNSPECIFIED 03/03/2018 SAMIR VARGAS Ot K08.9 DISORDER OF TEETH AND SUPPORTING STRUCTU 03/03/2018 SAMIR VARGAS Ot K76.9 LIVER DISEASE, UNSPECIFIED 03/03/2018 SAMIR VARGAS Ot Z90.49 ACQUIRED ABSENCE OF OTHER SPECIFIED PART 03/03/2018 YULISSA CASTANEDA MD Ot S22.082S UNSTABLE BURST FRACTURE OF T11-T12 VERTE 03/03/2018 YULISSA CASTANEDA MD A Ot X58.XXXS EXPOSURE TO OTHER SPECIFIED FACTORS, SEQ 03/03/2018 YULISSA CASTANEDA MD Ot Y99.8 OTHER EXTERNAL CAUSE STATUS 03/03/2018 YULISSA CASTANEDA MD Ot Z98.1 ARTHRODESIS STATUS 03/03/2018 JUAN J DEJESUS MD, Ot 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 OF ASCENDING COLON 03/03/2018 JUAN J DEJESUS MD, Ot 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 AND UNSP MALIGNANT NEOPLASM OF 03/03/2018 JUAN J DEJESUS MD, Ot Z90.49 ACQUIRED ABSENCE OF OTHER SPECIFIED PART 03/03/2018 YAIR STONE Ot Z48. 89 ENCOUNTER FOR OTHER SPECIFIED SURGICAL A 03/03/2018 YAIR STONE Ot Z98. 1 ARTHRODESIS STATUS 03/03/2018 SAMIR VARGAS Ot 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 03/03/2018 SAMIR VARGAS Ot 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 OF ASCENDING COLON 03/03/2018 SAMIR VARGAS Ot 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 AND UNSP MALIGNANT NEOPLASM OF 03/03/2018 SAMIR VARGAS Ot C78.7 SECONDARY MALIG NEOPLASM OF LIVER AND IN 03/03/2018 SAMIR VARGAS Ot E66.01 MORBID (SEVERE) OBESITY DUE TO EXCESS CA 03/03/2018 SAMIR VARGAS Ot F17.210 NICOTINE DEPENDENCE, CIGARETTES, UNCOMPL 03/03/2018 SAMIR VARGAS Ot Z51.11 ENCOUNTER FOR ANTINEOPLASTIC CHEMOTHERAP 03/03/2018 SAMIR VARGAS Ot Z68.41 BODY MASS INDEX (BMI) 40.0-44.9, ADULT 03/03/2018 SAMIR VARGAS Ot Z79.899 OTHER SNF (CURRENT) DRUG THERAPY 03/03/2018 SAMIR VARGAS Ot Z90.49 ACQUIRED ABSENCE OF OTHER SPECIFIED PART 03/08/2018 KAMILA FLORES MD Ot V68.01 DISABILITY EXAMINATION 03/08/2018 KAMILA FLORES MD Ot V82.89 SCREEN FOR OTH SPECIF CONDITIONS 03/08/2018 CHRIS YUEN, MONIE R Ot R10. 31 RIGHT LOWER QUADRANT PAIN 03/08/2018 SAMIR VARGAS Ot C18.9 MALIGNANT NEOPLASM OF COLON, UNSPECIFIED 03/08/2018 SAMIR VARGAS Ot K08.9 DISORDER OF TEETH AND SUPPORTING STRUCTU 03/08/2018 SAMIR VARGAS Ot K76.9 LIVER DISEASE, UNSPECIFIED 03/08/2018 SAMIR VARGAS Ot Z90.49 ACQUIRED ABSENCE OF OTHER SPECIFIED PART 03/08/2018 YULISSA CASTANEDA MD Ot S22.082S UNSTABLE BURST FRACTURE OF T11-T12 VERTE 03/08/2018 YULISSA CASTANEDA MD Ot X58.XXXS EXPOSURE TO OTHER SPECIFIED FACTORS, SEQ 03/08/2018 YULISSA CASTANEDA MD Ot Y99.8 OTHER EXTERNAL CAUSE STATUS 03/08/2018 YULISSA CASTANEDA MD Ot Z98.1 ARTHRODESIS STATUS 03/08/2018 JUAN J DEJESUS MD Ot 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 OF ASCENDING COLON 03/08/2018 JUAN J DEJESUS MD Ot 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 AND UNSP MALIGNANT NEOPLASM OF 03/08/2018 JUAN J DEJESUS MD Ot Z90.49 ACQUIRED ABSENCE OF OTHER SPECIFIED PART 03/08/2018 YAIR STONE Ot Z48. 89 ENCOUNTER FOR OTHER SPECIFIED SURGICAL A 03/08/2018 YAIR STONE Ot Z98. 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 03/08/2018 SAMIR VARGAS Ot 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 OF ASCENDING COLON 03/08/2018 SAMIR VARGAS Ot 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 AND UNSP MALIGNANT NEOPLASM OF 03/08/2018 SAMIR VARGAS Ot C78.7 SECONDARY MALIG NEOPLASM OF LIVER AND IN 03/08/2018 SAMIR VARGAS Ot E66.01 MORBID (SEVERE) OBESITY DUE TO EXCESS CA 03/08/2018 SAMIR VARGAS Ot F17.210 NICOTINE DEPENDENCE, CIGARETTES, UNCOMPL 03/08/2018 SAMIR VARGAS Ot Z51.11 ENCOUNTER FOR ANTINEOPLASTIC CHEMOTHERAP 03/08/2018 SAMIR VARGAS Ot Z68.41 BODY MASS INDEX (BMI) 40.0-44.9, ADULT 03/08/2018 SAMIR VARGAS Ot Z79.899 OTHER PANTOGRAPHER (CURRENT) DRUG THERAPY 03/08/2018 SAMIR VARGAS Ot Z90.49 ACQUIRED ABSENCE OF OTHER SPECIFIED PART 03/08/2018 SAMIR VARGAS Ot 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 03/08/2018 SAMIR VARGAS N Ot 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 OF ASCENDING COLON 03/08/2018 SAMIR VARGAS N Ot 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 AND UNSP MALIGNANT NEOPLASM OF 03/08/2018 SAMIR VARGAS N Ot C78.7 SECONDARY MALIG NEOPLASM OF LIVER AND IN 03/08/2018 SAMIR VARGAS Ot E66.01 MORBID (SEVERE) OBESITY DUE TO EXCESS CA 03/08/2018 SAMIR VARGAS Ot F17.210 NICOTINE DEPENDENCE, CIGARETTES, UNCOMPL 03/08/2018 SAMIR VARGAS Ot Z51.11 ENCOUNTER FOR ANTINEOPLASTIC CHEMOTHERAP 03/08/2018 SAMIR VARGAS Ot Z68.41 BODY MASS INDEX (BMI) 40.0-44.9, ADULT 03/08/2018 SAMIR VARGAS Ot Z79.899 OTHER PANTOGRAPHER (CURRENT) DRUG THERAPY 03/08/2018 SAMIR VARGAS Ot Z90.49 ACQUIRED ABSENCE OF OTHER SPECIFIED PART 03/28/2018 KAMILA FLORES MD Ot V68.01 DISABILITY EXAMINATION 03/28/2018 KAMILA FLORES MD Ot V82.89 SCREEN FOR OTH SPECIF CONDITIONS 03/28/2018 CHRIS YUEN, MONIE R Ot R10. 31 RIGHT LOWER QUADRANT PAIN 03/28/2018 SAMIR VARGAS Ot C18.9 MALIGNANT NEOPLASM OF COLON, UNSPECIFIED 03/28/2018 SAMIR VARGAS Ankur Ot K08.9 DISORDER OF TEETH AND SUPPORTING STRUCTU 03/28/2018 SAMIR VARGAS Ankur Ot K76.9 LIVER DISEASE, UNSPECIFIED 03/28/2018 SAMIR VARGAS N Ot Z90.49 ACQUIRED ABSENCE OF OTHER SPECIFIED PART 03/28/2018 YULISSA CASTANEDA MD Ot S22.082S UNSTABLE BURST FRACTURE OF T11-T12 VERTE 03/28/2018 YULISSA CASTANEDA MD Ot X58.XXXS EXPOSURE TO OTHER SPECIFIED FACTORS, SEQ 03/28/2018 YULISSA CASTANEDA MD Ot Y99.8 OTHER EXTERNAL CAUSE STATUS 03/28/2018 YULISSA CASTANEDA MD Ot Z98.1 ARTHRODESIS STATUS 03/28/2018 JUAN J DEJESUS MD, Ot 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 OF ASCENDING COLON 03/28/2018 JUAN J DEJESUS MD, Ot 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 AND UNSP MALIGNANT NEOPLASM OF 03/28/2018 JUAN J DEJESUS MD Ot Z90.49 ACQUIRED ABSENCE OF OTHER SPECIFIED PART 03/28/2018 YAIR STONE Ot Z48. 89 ENCOUNTER FOR OTHER SPECIFIED SURGICAL A 03/28/2018 YAIR STONE Ot Z98. 1 ARTHRODESIS STATUS 03/28/2018 ALICIA SAMIR Pascual Ot 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 03/28/2018 ALICIASAMIR Ot 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 OF ASCENDING COLON 03/28/2018 SAMIR VARGAS Ot 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 AND UNSP MALIGNANT NEOPLASM OF 03/28/2018 ALICIASAMIR Ot C78.7 SECONDARY MALIG NEOPLASM OF LIVER AND IN 03/28/2018 ALICIAKURTCARLA Ankur Ot E66.01 MORBID (SEVERE) OBESITY DUE TO EXCESS CA 03/28/2018 SAMIR VARGAS Ot F17.210 NICOTINE DEPENDENCE, CIGARETTES, UNCOMPL 03/28/2018 SAMIR VARGAS Ot Z51.11 ENCOUNTER FOR ANTINEOPLASTIC CHEMOTHERAP 03/28/2018 SAMIR VARGAS Ot Z68.41 BODY MASS INDEX (BMI) 40.0-44.9, ADULT 03/28/2018 SAMIR VARGAS Ot Z79.899 OTHER PANTOGRAPHER (CURRENT) DRUG THERAPY 03/28/2018 SAMIR VARGAS Ot Z90.49 ACQUIRED ABSENCE OF OTHER SPECIFIED PART 03/30/2018 JUAN J DEJESUS MD, Ot 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 OF ASCENDING COLON 03/30/2018 JUAN J DEJESUS MD Ot C78.7 SECONDARY MALIG NEOPLASM OF LIVER AND IN 04/05/2018 JUAN J DEJESUS MD, Ot 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 OF ASCENDING COLON 04/05/2018 OLEG MD, ARITA Ot 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 AND UNSP MALIGNANT NEOPLASM OF 04/05/2018 JUAN J DEJESUS MD Ot Z90.49 ACQUIRED ABSENCE OF OTHER SPECIFIED PART 04/10/2018 JUAN J DEJESUS MD Ot 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 OF ASCENDING COLON 04/10/2018 JUAN J DEJESUS MD Ot C78.7 SECONDARY MALIG NEOPLASM OF LIVER AND IN 04/18/2018 SAMIR VARGAS N Ot 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 04/18/2018 ALICIA SAMIR N Ot 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 OF ASCENDING COLON 04/18/2018 ALICIASAMIR N Ot 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 AND UNSP MALIGNANT NEOPLASM OF 04/18/2018 ALICIASAMIR N Ot C78.7 SECONDARY MALIG NEOPLASM OF LIVER AND IN 04/18/2018 ALICIA SAMIR N Ot E66.01 MORBID (SEVERE) OBESITY DUE TO EXCESS CA 04/18/2018 ALICIASAMIR PERSAUD N Ot F17.210 NICOTINE DEPENDENCE, CIGARETTES, UNCOMPL 04/18/2018 ALICIASAMIR PERSAUD N Ot Z51.11 ENCOUNTER FOR ANTINEOPLASTIC CHEMOTHERAP 04/18/2018 ALICIASAMIR PERSAUD N Ot Z68.41 BODY MASS INDEX (BMI) 40.0-44.9, ADULT 04/18/2018 SAMIR VARGAS N Ot Z79.899 OTHER PANTOGRAPHER (CURRENT) DRUG THERAPY 04/18/2018 SAMIR VARGAS N Ot Z90.49 ACQUIRED ABSENCE OF OTHER SPECIFIED PART 04/19/2018 SAMIR VARGAS N Ot 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 04/19/2018 SAMIR VARGAS N Ot 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 OF ASCENDING COLON 04/19/2018 ALICIAKURTCARLA N Ot 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 AND UNSP MALIGNANT NEOPLASM OF 04/19/2018 ALICIA SAMIR N Ot C78.7 SECONDARY MALIG NEOPLASM OF LIVER AND IN 04/19/2018 SAMIR VARGAS N Ot E66.01 MORBID (SEVERE) OBESITY DUE TO EXCESS CA 04/19/2018 ALICIASAMIR N Ot F17.210 NICOTINE DEPENDENCE, CIGARETTES, UNCOMPL 04/19/2018 ALICIASAMIR PERSAUD N Ot Z51.11 ENCOUNTER FOR ANTINEOPLASTIC CHEMOTHERAP 04/19/2018 ALICIASAMIR PERSAUD N Ot Z68.41 BODY MASS INDEX (BMI) 40.0-44.9, ADULT 04/19/2018 SAMIR VARGAS Ot Z79.899 OTHER PANTOGRAPHER (CURRENT) DRUG THERAPY 04/19/2018 SAMIR VARGAS Ot Z90.49 ACQUIRED ABSENCE OF OTHER SPECIFIED PART 04/19/2018 SAMIR VARGAS Ankur Ot 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 04/19/2018 SAMIR VARGAS Ankur Ot 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 OF ASCENDING COLON 04/19/2018 SAMIR VARGAS Ankur Ot 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 AND UNSP MALIGNANT NEOPLASM OF 04/19/2018 SAMIR VARGAS Ankur Ot C78.7 SECONDARY MALIG NEOPLASM OF LIVER AND IN 04/19/2018 SAMIR VARGAS Ankur Ot E66.01 MORBID (SEVERE) OBESITY DUE TO EXCESS CA 04/19/2018 SAMIR VARGAS Ankur Ot F17.210 NICOTINE DEPENDENCE, CIGARETTES, UNCOMPL 04/19/2018 SAMIR VARGAS Ankur Ot Z51.11 ENCOUNTER FOR ANTINEOPLASTIC CHEMOTHERAP 04/19/2018 SAMIR VARGAS Ankur Ot Z68.41 BODY MASS INDEX (BMI) 40.0-44.9, ADULT 04/19/2018 SAMIR VARGAS Ot Z79.899 OTHER SNF (CURRENT) DRUG THERAPY 04/19/2018 SAMIR VARGAS N Ot Z90.49 ACQUIRED ABSENCE OF OTHER SPECIFIED PART 04/21/2018 JUAN J DEJESUS MD Ot 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 OF ASCENDING COLON 04/21/2018 JUAN J DEJESUS MD Ot C78.7 SECONDARY MALIG NEOPLASM OF LIVER AND IN 04/26/2018 YULISSA CASTANEDA MD Ot S22.082S UNSTABLE BURST FRACTURE OF T11-T12 VERTE 04/26/2018 YULISSA CASTANEDA MD Ot X58.XXXS EXPOSURE TO OTHER SPECIFIED FACTORS, SEQ 04/26/2018 YULISSA CASTANEDA MD Ot Y99.8 OTHER EXTERNAL CAUSE STATUS 04/26/2018 YULISSA CASTANEDA MD Ot Z98.1 ARTHRODESIS STATUS 04/28/2018 SAMIR VARGAS Ot 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 04/28/2018 ALICIASAMIR Ot 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 OF ASCENDING COLON 04/28/2018 ALICIASAMIR Ot 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 AND UNSP MALIGNANT NEOPLASM OF 04/28/2018 ALICIA, BOBAN N Ot C78.7 SECONDARY MALIG NEOPLASM OF LIVER AND IN 04/28/2018 SAMIR VARGAS N Ot E66.01 MORBID (SEVERE) OBESITY DUE TO EXCESS CA 04/28/2018 SAMIR VARGAS N Ot F17.210 NICOTINE DEPENDENCE, CIGARETTES, UNCOMPL 04/28/2018 SAMIR VARGAS N Ot Z51.11 ENCOUNTER FOR ANTINEOPLASTIC CHEMOTHERAP 04/28/2018 SAMIR VARGAS N Ot Z68.41 BODY MASS INDEX (BMI) 40.0-44.9, ADULT 04/28/2018 SAMIR VARGAS N Ot Z79.899 OTHER PANTOGRAPHER (CURRENT) DRUG THERAPY 04/28/2018 SAMIR VARGAS N Ot Z90.49 ACQUIRED ABSENCE OF OTHER SPECIFIED PART 05/03/2018 SAMIR VARGAS N Ot 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 05/03/2018 SAMIR VARGAS N Ot 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 OF ASCENDING COLON 05/03/2018 SAMIR VARGAS N Ot 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 AND UNSP MALIGNANT NEOPLASM OF 05/03/2018 SAMIR VARGAS N Ot C78.7 SECONDARY MALIG NEOPLASM OF LIVER AND IN 05/03/2018 SAMIR VARGAS N Ot E66.01 MORBID (SEVERE) OBESITY DUE TO EXCESS CA 05/03/2018 SAMIR VARGAS N Ot F17.210 NICOTINE DEPENDENCE, CIGARETTES, UNCOMPL 05/03/2018 SAMIR VARGAS N Ot Z51.11 ENCOUNTER FOR ANTINEOPLASTIC CHEMOTHERAP 05/03/2018 SAMIR VARGAS N Ot Z68.41 BODY MASS INDEX (BMI) 40.0-44.9, ADULT 05/03/2018 SAMIR VARGAS N Ot Z79.899 OTHER SNF (CURRENT) DRUG THERAPY 05/03/2018 SAMIR VARGAS N Ot Z90.49 ACQUIRED ABSENCE OF OTHER SPECIFIED PART 05/15/2018 LEONEL YUEN, YULISSA A Ot S22.082S UNSTABLE BURST FRACTURE OF T11-T12 VERTE 05/15/2018 YULISSA CASTANEDA MD A Ot X58.XXXS EXPOSURE TO OTHER SPECIFIED FACTORS, SEQ 05/15/2018 YULISSA CASTANEDA MD A Ot Y99.8 OTHER EXTERNAL CAUSE STATUS 05/15/2018 YULISSA CASTANEDA MD A Ot Z98.1 ARTHRODESIS STATUS 05/22/2018 SAMIR VARGAS N Ot 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 05/22/2018 SAMIR VARGAS N Ot 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 OF ASCENDING COLON 05/22/2018 SAMIR VARGAS N Ot 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 AND UNSP MALIGNANT NEOPLASM OF 05/22/2018 SAMIR VARGAS N Ot C78.7 SECONDARY MALIG NEOPLASM OF LIVER AND IN 05/22/2018 SAMIR VARGAS N Ot E66.01 MORBID (SEVERE) OBESITY DUE TO EXCESS CA 05/22/2018 SAMIR VARGAS N Ot F17.210 NICOTINE DEPENDENCE, CIGARETTES, UNCOMPL 05/22/2018 SAMIR VARGAS N Ot Z51.11 ENCOUNTER FOR ANTINEOPLASTIC CHEMOTHERAP 05/22/2018 SAMIR VARGAS N Ot Z68.41 BODY MASS INDEX (BMI) 40.0-44.9, ADULT 05/22/2018 SAMIR VARGAS N Ot Z79.899 OTHER SNF (CURRENT) DRUG THERAPY 05/22/2018 SAMIR VARGAS N Ot Z90.49 ACQUIRED ABSENCE OF OTHER SPECIFIED PART 06/06/2018 SAMIR VARGAS N Ot 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 06/06/2018 SAMIR VARGAS N Ot 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 OF ASCENDING COLON 06/06/2018 SAMIR VARGAS N Ot 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 AND UNSP MALIGNANT NEOPLASM OF 06/06/2018 SAMIR VARGAS N Ot C78.7 SECONDARY MALIG NEOPLASM OF LIVER AND IN 06/06/2018 SAMIR VARGAS N Ot E66.01 MORBID (SEVERE) OBESITY DUE TO EXCESS CA 06/06/2018 SAMIR VARGAS N Ot F17.210 NICOTINE DEPENDENCE, CIGARETTES, UNCOMPL 06/06/2018 SAMIR VARGAS N Ot Z51.11 ENCOUNTER FOR ANTINEOPLASTIC CHEMOTHERAP 06/06/2018 SAMIR VARGAS N Ot Z68.41 BODY MASS INDEX (BMI) 40.0-44.9, ADULT 06/06/2018 SAMIR VARGAS N Ot Z79.899 OTHER SNF (CURRENT) DRUG THERAPY 06/06/2018 SAMIR VARGAS N Ot Z90.49 ACQUIRED ABSENCE OF OTHER SPECIFIED PART 06/26/2018 KAMILA FLORES MD Ot V68.01 DISABILITY EXAMINATION 06/26/2018 KAMILA FLORES MD Ot V82.89 SCREEN FOR OTH SPECIF CONDITIONS 06/26/2018 CHRIS YUEN, MONIE R Ot R10. 31 RIGHT LOWER QUADRANT PAIN 06/26/2018 ALICIA, SAMIR Pascual Ot C18.9 MALIGNANT NEOPLASM OF COLON, UNSPECIFIED 06/26/2018 ALICIASAMIR Ot K08.9 DISORDER OF TEETH AND SUPPORTING STRUCTU 06/26/2018 SAMIR VARGAS Ot K76.9 LIVER DISEASE, UNSPECIFIED 06/26/2018 SAMIR VARGAS Ot Z90.49 ACQUIRED ABSENCE OF OTHER SPECIFIED PART 06/26/2018 YULISSA CASTANEDA MD Ot S22.082S UNSTABLE BURST FRACTURE OF T11-T12 VERTE 06/26/2018 YULISSA CASTANEDA MD Ot X58.XXXS EXPOSURE TO OTHER SPECIFIED FACTORS, SEQ 06/26/2018 YULISSA CASTANEDA MD Ot Y99.8 OTHER EXTERNAL CAUSE STATUS 06/26/2018 YULISSA CASTANEDA MD Ot Z98.1 ARTHRODESIS STATUS 06/26/2018 JUAN J DEJESUS MD, Ot 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 OF ASCENDING COLON 06/26/2018 JUAN J DEJESUS MD, Ot 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 AND UNSP MALIGNANT NEOPLASM OF 06/26/2018 JUAN J DEJESUS MD Ot Z90.49 ACQUIRED ABSENCE OF OTHER SPECIFIED PART 06/26/2018 YAIR STONE Ot Z48. 89 ENCOUNTER FOR OTHER SPECIFIED SURGICAL A 06/26/2018 YAIR STONE Ot Z98. 1 ARTHRODESIS STATUS 06/26/2018 JUAN J DEJESUS MD, Ot 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 OF ASCENDING COLON 06/26/2018 JUAN J DEJESUS MD, Ot C78.7 SECONDARY MALIG NEOPLASM OF LIVER AND IN 06/26/2018 SAMIR VARGAS Ot 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 06/26/2018 SAMIR VARGAS Ot 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 OF ASCENDING COLON 06/26/2018 SAMIR VARGAS Ot 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 AND UNSP MALIGNANT NEOPLASM OF 06/26/2018 SAMIR VARGAS Ot C78.7 SECONDARY MALIG NEOPLASM OF LIVER AND IN 06/26/2018 SAMIR VARGAS Ot E66.01 MORBID (SEVERE) OBESITY DUE TO EXCESS CA 06/26/2018 SAMIR VARGAS Ot F17.210 NICOTINE DEPENDENCE, CIGARETTES, UNCOMPL 06/26/2018 SAMIR VARGAS Ot Z51.11 ENCOUNTER FOR ANTINEOPLASTIC CHEMOTHERAP 06/26/2018 ALICIASAMIR Ot Z68.41 BODY MASS INDEX (BMI) 40.0-44.9, ADULT 06/26/2018 ALICIASAMIR Ot Z79.899 OTHER SNF (CURRENT) DRUG THERAPY 06/26/2018 ALICIASAMIR Ot Z90.49 ACQUIRED ABSENCE OF OTHER SPECIFIED PART 06/27/2018 SCOTT MCKEE POWDERED SUGAR SUPERVISOR Ot 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 OF ASCENDING COLON 06/27/2018 SCOTT MCKEE S POWDERED SUGAR SUPERVISOR Ot 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 AND UNSP MALIGNANT NEOPLASM OF 06/27/2018 MCKEESCOTT Padilla S POWDERED SUGAR SUPERVISOR Ot C78.7 SECONDARY MALIG NEOPLASM OF LIVER AND IN 06/27/2018 SCOTT MCKEE POWDERED SUGAR SUPERVISOR Ot K80.20 CALCULUS OF GALLBLADDER W/O CHOLECYSTITI 06/27/2018 SCOTT MCKEE POWDERED SUGAR SUPERVISOR Ot R91.8 OTHER NONSPECIFIC ABNORMAL FINDING OF DRE 06/27/2018 SCOTT MCKEE POWDERED SUGAR SUPERVISOR Ot Z95.828 PRESENCE OF OTHER VASCULAR IMPLANTS AND 07/08/2018 YULISSA CASTANEDA MD Ot M54.9 DORSALGIA, UNSPECIFIED 07/08/2018 YULISSA CASTANEDA MD Ot Z48.89 ENCOUNTER FOR OTHER SPECIFIED SURGICAL A 07/08/2018 YULISSA CASTANEDA MD Ot Z98.1 ARTHRODESIS STATUS 07/12/2018 YULISSA CASTANEDA MD Ot M54.9 DORSALGIA, UNSPECIFIED 07/12/2018 YULISSA CASTANEDA MD Ot Z48.89 ENCOUNTER FOR OTHER SPECIFIED SURGICAL A 07/12/2018 YULISSA CASTANEDA MD Ot Z98.1 ARTHRODESIS STATUS 07/12/2018 SAMIR VARGAS Ot 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 07/12/2018 SAMIR VARGAS Ot 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 OF ASCENDING COLON 07/12/2018 SAMIR VARGAS Ot 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 AND UNSP MALIGNANT NEOPLASM OF 07/12/2018 SAMIR VARGAS Ot C78.7 SECONDARY MALIG NEOPLASM OF LIVER AND IN 07/12/2018 SAMIR VARGAS Ot E66.01 MORBID (SEVERE) OBESITY DUE TO EXCESS CA 07/12/2018 SAMIR VARGAS Ot F17.210 NICOTINE DEPENDENCE, CIGARETTES, UNCOMPL 07/12/2018 ALICIASAMIR Ot Z51.11 ENCOUNTER FOR ANTINEOPLASTIC CHEMOTHERAP 07/12/2018 ALICIASAMIR Ot Z68.41 BODY MASS INDEX (BMI) 40.0-44.9, ADULT 07/12/2018 ALICIASAMIR Ot Z79.899 OTHER PANTOGRAPHER (CURRENT) DRUG THERAPY 07/12/2018 SAMIR VARGAS Ot Z90.49 ACQUIRED ABSENCE OF OTHER SPECIFIED PART 07/13/2018 SCOTT MCKEE POWDERED SUGAR SUPERVISOR Ot 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 OF ASCENDING COLON 07/13/2018 SCOTT MCKEE POWDERED SUGAR SUPERVISOR Ot 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 AND UNSP MALIGNANT NEOPLASM OF 07/13/2018 SCOTT MCKEE POWDERED SUGAR SUPERVISOR Ot C78.7 SECONDARY MALIG NEOPLASM OF LIVER AND IN 07/13/2018 SCOTT MCKEE POWDERED SUGAR SUPERVISOR Ot K80.20 CALCULUS OF GALLBLADDER W/O CHOLECYSTITI 07/13/2018 SCOTT MCKEE POWDERED SUGAR SUPERVISOR Ot R91.8 OTHER NONSPECIFIC ABNORMAL FINDING OF DRE 07/13/2018 SCOTT MCKEE POWDERED SUGAR SUPERVISOR Ot Z95.828 PRESENCE OF OTHER VASCULAR IMPLANTS AND 07/13/2018 YULISSA CASTANEDA MD Ot M54.9 DORSALGIA, UNSPECIFIED 07/13/2018 YULISSA CASTANEDA MD Ot Z48.89 ENCOUNTER FOR OTHER SPECIFIED SURGICAL A 07/13/2018 YULISSA CASTANEDA MD Ot Z98.1 ARTHRODESIS STATUS 07/25/2018 SAMIR VARGAS Ot 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 07/25/2018 SAMIR VARGAS Ot 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 OF ASCENDING COLON 07/25/2018 SAMIR VARGAS Ot 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 AND UNSP MALIGNANT NEOPLASM OF 07/25/2018 SAMIR VARGAS Ot C78.7 SECONDARY MALIG NEOPLASM OF LIVER AND IN 07/25/2018 SAMIR VARGAS Ot E66.01 MORBID (SEVERE) OBESITY DUE TO EXCESS CA 07/25/2018 SAMIR VARGAS Ot F17.210 NICOTINE DEPENDENCE, CIGARETTES, UNCOMPL 07/25/2018 SAMIR VARGAS Ot Z51.11 ENCOUNTER FOR ANTINEOPLASTIC CHEMOTHERAP 07/25/2018 SAMIR VARGAS Ot Z68.41 BODY MASS INDEX (BMI) 40.0-44.9, ADULT 07/25/2018 SAMIR VARGAS Ot Z79.899 OTHER SNF (CURRENT) DRUG THERAPY 07/25/2018 SAMIR VARGAS Ot Z90.49 ACQUIRED ABSENCE OF OTHER SPECIFIED PART 07/25/2018 SANDRA YUEN, KAMILA Jacobs Ot V68.01 DISABILITY EXAMINATION 07/25/2018 KAMILA FLORES MD Ot V82.89 SCREEN FOR OTH SPECIF CONDITIONS 07/25/2018 CHRIS YUEN, MONIE R Ot R10. 31 RIGHT LOWER QUADRANT PAIN 07/25/2018 SAMIR VARGAS Ot C18.9 MALIGNANT NEOPLASM OF COLON, UNSPECIFIED 07/25/2018 SAMIR VARGAS Ot K08.9 DISORDER OF TEETH AND SUPPORTING STRUCTU 07/25/2018 SAMIR VARGAS Ankur Ot K76.9 LIVER DISEASE, UNSPECIFIED 07/25/2018 SAMIR VARGAS Ot Z90.49 ACQUIRED ABSENCE OF OTHER SPECIFIED PART 07/25/2018 YULISSA CASTANEDA MD Ot S22.082S UNSTABLE BURST FRACTURE OF T11-T12 VERTE 07/25/2018 YULISSA CASTANEDA MD Ot X58.XXXS EXPOSURE TO OTHER SPECIFIED FACTORS, SEQ 07/25/2018 YULISSA CASTANEDA MD Ot Y99.8 OTHER EXTERNAL CAUSE STATUS 07/25/2018 YULISSA CASTANEDA MD Ot Z98.1 ARTHRODESIS STATUS 07/25/2018 JUAN J DEJESUS MD Ot 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 OF ASCENDING COLON 07/25/2018 JUAN J DEJESUS MD, Ot 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 AND UNSP MALIGNANT NEOPLASM OF 07/25/2018 JUAN J DEJESUS MD Ot Z90.49 ACQUIRED ABSENCE OF OTHER SPECIFIED PART 07/25/2018 YAIR STONE Ot Z48. 89 ENCOUNTER FOR OTHER SPECIFIED SURGICAL A 07/25/2018 YAIR STONE Ot Z98. 1 ARTHRODESIS STATUS 07/25/2018 JUAN J DEJESUS MD, Ot 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 OF ASCENDING COLON 07/25/2018 JUAN J DEJESUS MD, Ot C78.7 SECONDARY MALIG NEOPLASM OF LIVER AND IN 07/25/2018 SCOTT MCKEE Ot 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 OF ASCENDING COLON 07/25/2018 MCKEE, HILAH S POWDERED SUGAR SUPERVISOR Ot 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 AND UNSP MALIGNANT NEOPLASM OF 07/25/2018 MCKEESCOTT Padilla POWDERED SUGAR SUPERVISOR Ot C78.7 SECONDARY MALIG NEOPLASM OF LIVER AND IN 07/25/2018 SCOTT MCKEE POWDERED SUGAR SUPERVISOR Ot K80.20 CALCULUS OF GALLBLADDER W/O CHOLECYSTITI 07/25/2018 SCOTT MCKEE POWDERED SUGAR SUPERVISOR Ot R91.8 OTHER NONSPECIFIC ABNORMAL FINDING OF DRE 07/25/2018 MCKEE, CHICOOPAL Padilla POWDERED SUGAR SUPERVISOR Ot Z95.828 PRESENCE OF OTHER VASCULAR IMPLANTS AND 07/25/2018 YULISSA CASTANEDA MD Ot M54.9 DORSALGIA, UNSPECIFIED 07/25/2018 YULISSA CASTANEDA MD Ot Z48.89 ENCOUNTER FOR OTHER SPECIFIED SURGICAL A 07/25/2018 YULISSA CASTANEDA MD Ot Z98.1 ARTHRODESIS STATUS 07/25/2018 JUAN J DEJESUS MD Ot 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 07/25/2018 JUAN J DEJESUS MD, Ot 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 OF ASCENDING COLON 07/25/2018 JUAN J DEJESUS MD, Ot 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 AND UNSP MALIGNANT NEOPLASM OF 07/25/2018 JUAN J DEJESUS MD, Ot C78.7 SECONDARY MALIG NEOPLASM OF LIVER AND IN 07/25/2018 JUAN J DEJESUS MD Ot E66.01 MORBID (SEVERE) OBESITY DUE TO EXCESS CA 07/25/2018 JUAN J DEJESUS MD Ot F17.210 NICOTINE DEPENDENCE, CIGARETTES, UNCOMPL 07/25/2018 JUAN J DEJESUS MD Ot Z51.11 ENCOUNTER FOR ANTINEOPLASTIC CHEMOTHERAP 07/25/2018 JUAN J DEJESUS MD Ot Z68.41 BODY MASS INDEX (BMI) 40.0-44.9, ADULT 07/25/2018 JUAN J DEJESUS MD Ot Z79.899 OTHER PANTOGRAPHER (CURRENT) DRUG THERAPY 07/25/2018 JUAN J DEJESUS MD Ot Z90.49 ACQUIRED ABSENCE OF OTHER SPECIFIED PART 07/25/2018 JUAN J DEJESUS MD Ot 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 07/25/2018 JUAN J DEJESUS MD Ot 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 OF ASCENDING COLON 07/25/2018 JUAN J DEJESUS MD Ot 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 AND UNSP MALIGNANT NEOPLASM OF 07/25/2018 JUAN J DEJESUS MD Ot C78.7 SECONDARY MALIG NEOPLASM OF LIVER AND IN 07/25/2018 JUAN J DEJESUS MD Ot E66.01 MORBID (SEVERE) OBESITY DUE TO EXCESS CA 07/25/2018 JUAN J DEJESUS MD Ot F17.210 NICOTINE DEPENDENCE, CIGARETTES, UNCOMPL 07/25/2018 JUAN J DEJESUS MD Ot Z51.11 ENCOUNTER FOR ANTINEOPLASTIC CHEMOTHERAP 07/25/2018 JUAN J DEJESUS MD Ot Z68.41 BODY MASS INDEX (BMI) 40.0-44.9, ADULT 07/25/2018 JUAN J DEJESUS MD Ot Z79.899 OTHER SNF (CURRENT) DRUG THERAPY 07/25/2018 JUAN J DEJESUS MD Ot Z90.49 ACQUIRED ABSENCE OF OTHER SPECIFIED PART 07/26/2018 JUAN J DEJESUS MD Ot 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 07/26/2018 JUAN J DEJESUS MD Ot 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 OF ASCENDING COLON 07/26/2018 JUAN J DEJESUS MD Ot 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 AND UNSP MALIGNANT NEOPLASM OF 07/26/2018 JUAN J DEJESUS MD Ot C78.7 SECONDARY MALIG NEOPLASM OF LIVER AND IN 07/26/2018 JUAN J DEJESUS MD Ot E66.01 MORBID (SEVERE) OBESITY DUE TO EXCESS CA 07/26/2018 JUAN J DEJESUS MD Ot F17.210 NICOTINE DEPENDENCE, CIGARETTES, UNCOMPL 07/26/2018 JUAN J DEJESUS MD Ot Z51.11 ENCOUNTER FOR ANTINEOPLASTIC CHEMOTHERAP 07/26/2018 JUAN J DEJESUS MD Ot Z68.41 BODY MASS INDEX (BMI) 40.0-44.9, ADULT 07/26/2018 JUAN J DEJESUS MD Ot Z79.899 OTHER PANTOGRAPHER (CURRENT) DRUG THERAPY 07/26/2018 JUAN J DEJESUS MD Ot Z90.49 ACQUIRED ABSENCE OF OTHER SPECIFIED PART 07/26/2018 JUAN J DEJESUS MD Ot 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 07/26/2018 JUAN J DEJESUS MD Ot 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 OF ASCENDING COLON 07/26/2018 JUAN J DEJESUS MD Ot 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 AND UNSP MALIGNANT NEOPLASM OF 07/26/2018 JUAN J DEJESUS MD Ot C78.7 SECONDARY MALIG NEOPLASM OF LIVER AND IN 07/26/2018 JUAN J DEJESUS MD Ot E66.01 MORBID (SEVERE) OBESITY DUE TO EXCESS CA 07/26/2018 JUAN J DEJESUS MD Ot F17.210 NICOTINE DEPENDENCE, CIGARETTES, UNCOMPL 07/26/2018 JUAN J DEJESUS MD Ot Z51.11 ENCOUNTER FOR ANTINEOPLASTIC CHEMOTHERAP 07/26/2018 JUAN J DEJESUS MD Ot Z68.41 BODY MASS INDEX (BMI) 40.0-44.9, ADULT 07/26/2018 JUAN J DEJESUS MD Ot Z79.899 OTHER PANTOGRAPHER (CURRENT) DRUG THERAPY 07/26/2018 JUAN J DEJESUS MD Ot Z90.49 ACQUIRED ABSENCE OF OTHER SPECIFIED PART 08/06/2018 JUAN J DEJESUS MD Ot 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 08/06/2018 JUAN J DEJESUS MD Ot 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 OF ASCENDING COLON 08/06/2018 JUAN J DEJESUS MD Ot 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 AND UNSP MALIGNANT NEOPLASM OF 08/06/2018 JUAN J DEJESUS MD Ot C78.7 SECONDARY MALIG NEOPLASM OF LIVER AND IN 08/06/2018 JUAN J DEJESUS MD Ot E66.01 MORBID (SEVERE) OBESITY DUE TO EXCESS CA 08/06/2018 JUAN J DEJESUS MD Ot F17.210 NICOTINE DEPENDENCE, CIGARETTES, UNCOMPL 08/06/2018 JUAN J DEJESUS MD Ot Z51.11 ENCOUNTER FOR ANTINEOPLASTIC CHEMOTHERAP 08/06/2018 JUAN J DEJESUS MD Ot Z68.41 BODY MASS INDEX (BMI) 40.0-44.9, ADULT 08/06/2018 JUAN J DEJESUS MD Ot Z79.899 OTHER SNF (CURRENT) DRUG THERAPY 08/06/2018 JUAN J DEJESUS MD Ot Z90.49 ACQUIRED ABSENCE OF OTHER SPECIFIED PART 08/08/2018 JUAN J DEJESUS MD Ot 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 08/08/2018 JUAN J DEJESUS MD Ot 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 OF ASCENDING COLON 08/08/2018 JUAN J DEJESUS MD Ot 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 AND UNSP MALIGNANT NEOPLASM OF 08/08/2018 JUAN J DEJESUS MD Ot C78.7 SECONDARY MALIG NEOPLASM OF LIVER AND IN 08/08/2018 JUAN J DEJESUS MD Ot E66.01 MORBID (SEVERE) OBESITY DUE TO EXCESS CA 08/08/2018 JUAN J DEJESUS MD Ot F17.210 NICOTINE DEPENDENCE, CIGARETTES, UNCOMPL 08/08/2018 JUAN J DEJESUS MD Ot Z51.11 ENCOUNTER FOR ANTINEOPLASTIC CHEMOTHERAP 08/08/2018 JUAN J DEJESUS MD Ot Z68.41 BODY MASS INDEX (BMI) 40.0-44.9, ADULT 08/08/2018 JUAN J DEJESUS MD Ot Z79.899 OTHER SNF (CURRENT) DRUG THERAPY 08/08/2018 JUAN J DEJESUS MD Ot Z90.49 ACQUIRED ABSENCE OF OTHER SPECIFIED PART 08/23/2018 JUAN J DEJESUS MD Ot 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 08/23/2018 JUAN J DEJESUS MD Ot 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 OF ASCENDING COLON 08/23/2018 JUAN J DEJESUS MD Ot 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 AND UNSP MALIGNANT NEOPLASM OF 08/23/2018 JUAN J DEJESUS MD Ot C78.7 SECONDARY MALIG NEOPLASM OF LIVER AND IN 08/23/2018 JUAN J DEJESUS MD Ot E66.01 MORBID (SEVERE) OBESITY DUE TO EXCESS CA 08/23/2018 JUAN J DEJESUS MD Ot F17.210 NICOTINE DEPENDENCE, CIGARETTES, UNCOMPL 08/23/2018 JUAN J DEJESUS MD Ot Z51.11 ENCOUNTER FOR ANTINEOPLASTIC CHEMOTHERAP 08/23/2018 JUAN J DEJESUS MD Ot Z68.41 BODY MASS INDEX (BMI) 40.0-44.9, ADULT 08/23/2018 JUAN J DEJESUS MD Ot Z79.899 OTHER SNF (CURRENT) DRUG THERAPY 08/23/2018 JUAN J DEJESUS MD Ot Z90.49 ACQUIRED ABSENCE OF OTHER SPECIFIED PART 09/13/2018 JUAN J DEJESUS MD Ot 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 09/13/2018 JUAN J DEJESUS MD Ot 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 OF ASCENDING COLON 09/13/2018 JUAN J DEJESUS MD Ot 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 AND UNSP MALIGNANT NEOPLASM OF 09/13/2018 JUAN J DEJESUS MD Ot C78.7 SECONDARY MALIG NEOPLASM OF LIVER AND IN 09/13/2018 JUAN J DEJESUS MD Ot E66.01 MORBID (SEVERE) OBESITY DUE TO EXCESS CA 09/13/2018 JUAN J DEJESUS MD Ot F17.210 NICOTINE DEPENDENCE, CIGARETTES, UNCOMPL 09/13/2018 JUAN J DEJESUS MD Ot Z51.11 ENCOUNTER FOR ANTINEOPLASTIC CHEMOTHERAP 09/13/2018 JUAN J DEJESUS MD Ot Z68.41 BODY MASS INDEX (BMI) 40.0-44.9, ADULT 09/13/2018 JUAN J DEJESUS MD Ot Z79.899 OTHER PANTOGRAPHER (CURRENT) DRUG THERAPY 09/13/2018 JUAN J DEJESUS MD Ot Z90.49 ACQUIRED ABSENCE OF OTHER SPECIFIED PART 09/14/2018 MCKEE, HILAH S POWDERED SUGAR SUPERVISOR Ot 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 OF ASCENDING COLON 09/14/2018 SCOTT MCKEE POWDERED SUGAR SUPERVISOR Ot 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 AND UNSP MALIGNANT NEOPLASM OF 09/14/2018 SCOTT MCKEE POWDERED SUGAR SUPERVISOR Ot C78.7 SECONDARY MALIG NEOPLASM OF LIVER AND IN 09/14/2018 SCOTT MCKEE POWDERED SUGAR SUPERVISOR Ot K80.20 CALCULUS OF GALLBLADDER W/O CHOLECYSTITI 09/14/2018 SCOTT MCKEE POWDERED SUGAR SUPERVISOR Ot R91.8 OTHER NONSPECIFIC ABNORMAL FINDING OF DRE 09/14/2018 MCKEESCOTT Padilla POWDERED SUGAR SUPERVISOR Ot Z95.828 PRESENCE OF OTHER VASCULAR IMPLANTS AND 09/18/2018 SAMIR VARGAS N Ot 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 OF ASCENDING COLON 09/18/2018 SAMIR VARGAS Ot 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 AND UNSP MALIGNANT NEOPLASM OF 09/18/2018 SAMIR VARGAS Ot C78.7 SECONDARY MALIG NEOPLASM OF LIVER AND IN 09/20/2018 JUAN J DEJESUS MD, Ot 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 09/20/2018 JUAN J DEJESUS MD, Ot 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 OF ASCENDING COLON 09/20/2018 JUAN J DEJESUS MD, Ot 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 AND UNSP MALIGNANT NEOPLASM OF 09/20/2018 JUAN J DEJESUS MD, Ot C78.7 SECONDARY MALIG NEOPLASM OF LIVER AND IN 09/20/2018 JUAN J DEJESUS MD Ot E66.01 MORBID (SEVERE) OBESITY DUE TO EXCESS CA 09/20/2018 JUAN J DEJESUS MD Ot F17.210 NICOTINE DEPENDENCE, CIGARETTES, UNCOMPL 09/20/2018 JUAN J DEJESUS MD Ot Z51.11 ENCOUNTER FOR ANTINEOPLASTIC CHEMOTHERAP 09/20/2018 JUAN J DEJESUS MD Ot Z68.41 BODY MASS INDEX (BMI) 40.0-44.9, ADULT 09/20/2018 JUAN J DEJESUS MD, Ot Z79.899 OTHER SNF (CURRENT) DRUG THERAPY 09/20/2018 JUAN J DEJESUS MD, Ot Z90.49 ACQUIRED ABSENCE OF OTHER SPECIFIED PART 09/27/2018 KAMILA FLORES MD Ot V68.01 DISABILITY EXAMINATION 09/27/2018 KAMILA FLORES MD Ot V82.89 SCREEN FOR OTH SPECIF CONDITIONS 09/27/2018 CHRIS YUEN, MONIE R Ot R10. 31 RIGHT LOWER QUADRANT PAIN 09/27/2018 SAMIR VARGAS Ot C18.9 MALIGNANT NEOPLASM OF COLON, UNSPECIFIED 09/27/2018 SAMIR VARGAS Ot K08.9 DISORDER OF TEETH AND SUPPORTING STRUCTU 09/27/2018 SAMIR VARGAS Ankur Ot K76.9 LIVER DISEASE, UNSPECIFIED 09/27/2018 SAMIR VARGAS Ankur Ot Z90.49 ACQUIRED ABSENCE OF OTHER SPECIFIED PART 09/27/2018 YULISSA CASTANEDA MD Ot S22.082S UNSTABLE BURST FRACTURE OF T11-T12 VERTE 09/27/2018 YULISSA CASTANEDA MD Ot X58.XXXS EXPOSURE TO OTHER SPECIFIED FACTORS, SEQ 09/27/2018 YULISSA CASTANEDA MD Ot Y99.8 OTHER EXTERNAL CAUSE STATUS 09/27/2018 YULISSA CASTANEDA MD Ot Z98.1 ARTHRODESIS STATUS 09/27/2018 JUAN J DEJESUS MD, Ot 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 OF ASCENDING COLON 09/27/2018 JUAN J DEJESUS MD, Ot 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 AND UNSP MALIGNANT NEOPLASM OF 09/27/2018 JUAN J DEJESUS MD Ot Z90.49 ACQUIRED ABSENCE OF OTHER SPECIFIED PART 09/27/2018 YAIR STONE Ot Z48. 89 ENCOUNTER FOR OTHER SPECIFIED SURGICAL A 09/27/2018 YAIR STONE Ot Z98. 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 Ot R91.8 OTHER NONSPECIFIC ABNORMAL FINDING OF DRE 09/27/2018 SCOTT MCKEEP Ot Z95.828 PRESENCE OF OTHER VASCULAR IMPLANTS AND 09/27/2018 YULISSA CASTANEDA MD Ot M54.9 DORSALGIA, UNSPECIFIED 09/27/2018 YULISSA CASTANEDA MD Ot Z48.89 ENCOUNTER FOR OTHER SPECIFIED SURGICAL A 09/27/2018 YULISSA CASTANEDA MD Ot Z98.1 ARTHRODESIS STATUS 09/27/2018 JUAN J DEJESUS MD, Ot 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 09/27/2018 JUAN J DEJESUS MD, Ot 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 OF ASCENDING COLON 09/27/2018 JUAN J DEJESUS MD, Ot 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 AND UNSP MALIGNANT NEOPLASM OF 09/27/2018 JUAN J DEJESUS MD, Ot C78.7 SECONDARY MALIG NEOPLASM OF LIVER AND IN 09/27/2018 JUAN J DEJESUS MD Ot E66.01 MORBID (SEVERE) OBESITY DUE TO EXCESS CA 09/27/2018 JUAN J DEJESUS MD Ot F17.210 NICOTINE DEPENDENCE, CIGARETTES, UNCOMPL 09/27/2018 JUAN J DEJESUS MD Ot Z51.11 ENCOUNTER FOR ANTINEOPLASTIC CHEMOTHERAP 09/27/2018 JUAN J DEJESUS MD Ot Z68.41 BODY MASS INDEX (BMI) 40.0-44.9, ADULT 09/27/2018 JUAN J DEJESUS MD Ot Z79.899 OTHER SNF (CURRENT) DRUG THERAPY 09/27/2018 JUAN J DEJESUS MD Ot Z90.49 ACQUIRED ABSENCE OF OTHER SPECIFIED PART 09/27/2018 ALICIASAMIR N Ot 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 OF ASCENDING COLON 09/27/2018 SAMIR VARGAS N Ot 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 AND UNSP MALIGNANT NEOPLASM OF 09/27/2018 SAMIR VARGAS N Ot C78.7 SECONDARY MALIG NEOPLASM OF LIVER AND IN 09/27/2018 SAMIR VARGAS N Ot 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 OF ASCENDING COLON 09/27/2018 SAMIR VARGAS N Ot 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 AND UNSP MALIGNANT NEOPLASM OF 09/27/2018 SAMIR VARGAS N Ot C78.7 SECONDARY MALIG NEOPLASM OF LIVER AND IN 10/03/2018 JUAN J DEJESUS MD Ot 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 10/03/2018 JUAN J DEJESUS MD, Ot 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 OF ASCENDING COLON 10/03/2018 JUAN J DEJESUS MD, Ot 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 AND UNSP MALIGNANT NEOPLASM OF 10/03/2018 JUAN J DEJESUS MD Ot C78.7 SECONDARY MALIG NEOPLASM OF LIVER AND IN 10/03/2018 JUAN J DEJESUS MD Ot E66.01 MORBID (SEVERE) OBESITY DUE TO EXCESS CA 10/03/2018 JUAN J DEJESUS MD Ot F17.210 NICOTINE DEPENDENCE, CIGARETTES, UNCOMPL 10/03/2018 JUAN J DEJESUS MD Ot Z51.11 ENCOUNTER FOR ANTINEOPLASTIC CHEMOTHERAP 10/03/2018 JUAN J DEJESUS MD Ot Z68.41 BODY MASS INDEX (BMI) 40.0-44.9, ADULT 10/03/2018 JUAN J DEJESUS MD Ot Z79.899 OTHER SNF (CURRENT) DRUG THERAPY 10/03/2018 JUAN J DEJESUS MD Ot Z90.49 ACQUIRED ABSENCE OF OTHER SPECIFIED PART 10/03/2018 JUAN J DEJESUS MD Ot 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 10/03/2018 JUAN J DEJESUS MD Ot 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 OF ASCENDING COLON 10/03/2018 JUAN J DEJESUS MD Ot 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 AND UNSP MALIGNANT NEOPLASM OF 10/03/2018 JUAN J DEJESUS MD Ot C78.7 SECONDARY MALIG NEOPLASM OF LIVER AND IN 10/03/2018 JUAN J DEJESUS MD Ot E66.01 MORBID (SEVERE) OBESITY DUE TO EXCESS CA 10/03/2018 JUAN J DEJESUS MD Ot F17.210 NICOTINE DEPENDENCE, CIGARETTES, UNCOMPL 10/03/2018 JUAN J DEJESUS MD Ot Z51.11 ENCOUNTER FOR ANTINEOPLASTIC CHEMOTHERAP 10/03/2018 JUAN J DEJESUS MD Ot Z68.41 BODY MASS INDEX (BMI) 40.0-44.9, ADULT 10/03/2018 JUAN J DEJESUS MD Ot Z79.899 OTHER PANTOGRAPHER (CURRENT) DRUG THERAPY 10/03/2018 JUAN J DEJESUS MD Ot Z90.49 ACQUIRED ABSENCE OF OTHER SPECIFIED PART 11/01/2018 JUAN J DEJESUS MD Ot 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 11/01/2018 JUAN J DEJESUS MD Ot 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 OF ASCENDING COLON 11/01/2018 JUAN J DEJESUS MD Ot 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 AND UNSP MALIGNANT NEOPLASM OF 11/01/2018 JUAN J DEJESUS MD Ot C78.7 SECONDARY MALIG NEOPLASM OF LIVER AND IN 11/01/2018 JUAN J DEJESUS MD Ot E66.01 MORBID (SEVERE) OBESITY DUE TO EXCESS CA 11/01/2018 JUAN J DEJESUS MD Ot F17.210 NICOTINE DEPENDENCE, CIGARETTES, UNCOMPL 11/01/2018 JUAN J DEJESUS MD Ot Z51.11 ENCOUNTER FOR ANTINEOPLASTIC CHEMOTHERAP 11/01/2018 JUAN J DEJESUS MD Ot Z68.41 BODY MASS INDEX (BMI) 40.0-44.9, ADULT 11/01/2018 JUAN J DEJESUS MD Ot Z79.899 OTHER PANTOGRAPHER (CURRENT) DRUG THERAPY 11/01/2018 JUAN J DEJESUS MD Ot Z90.49 ACQUIRED ABSENCE OF OTHER SPECIFIED PART 11/07/2018 JUAN J DEJESUS MD Ot 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 11/07/2018 JUAN J DEJESUS MD Ot 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 OF ASCENDING COLON 11/07/2018 JUAN J DEJESUS MD Ot 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 AND UNSP MALIGNANT NEOPLASM OF 11/07/2018 JUAN J DEJESUS MD Ot C78.7 SECONDARY MALIG NEOPLASM OF LIVER AND IN 11/07/2018 JUAN J DEJESUS MD Ot E66.01 MORBID (SEVERE) OBESITY DUE TO EXCESS CA 11/07/2018 JUAN J DEJESUS MD Ot F17.210 NICOTINE DEPENDENCE, CIGARETTES, UNCOMPL 11/07/2018 JUAN J DEJESUS MD Ot Z51.11 ENCOUNTER FOR ANTINEOPLASTIC CHEMOTHERAP 11/07/2018 JUAN J DEJESUS MD Ot Z68.41 BODY MASS INDEX (BMI) 40.0-44.9, ADULT 11/07/2018 JUAN J DEJESUS MD Ot Z79.899 OTHER PANTOGRAPHER (CURRENT) DRUG THERAPY 11/07/2018 JUAN J DEJESUS MD Ot Z90.49 ACQUIRED ABSENCE OF OTHER SPECIFIED PART 11/08/2018 JUAN J DEJESUS MD Ot 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 11/08/2018 JUAN J DEJESUS MD Ot 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 OF ASCENDING COLON 11/08/2018 JUAN J DEJESUS MD Ot 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 AND UNSP MALIGNANT NEOPLASM OF 11/08/2018 JUAN J DEJESUS MD Ot C78.7 SECONDARY MALIG NEOPLASM OF LIVER AND IN 11/08/2018 JUAN J DEJESUS MD Ot E66.01 MORBID (SEVERE) OBESITY DUE TO EXCESS CA 11/08/2018 JUAN J DEJESUS MD Ot F17.210 NICOTINE DEPENDENCE, CIGARETTES, UNCOMPL 11/08/2018 JUAN J DEJESUS MD Ot Z51.11 ENCOUNTER FOR ANTINEOPLASTIC CHEMOTHERAP 11/08/2018 JUAN J DEJESUS MD Ot Z68.41 BODY MASS INDEX (BMI) 40.0-44.9, ADULT 11/08/2018 JUAN J DEJESUS MD Ot Z79.899 OTHER PANTOGRAPHER (CURRENT) DRUG THERAPY 11/08/2018 JUAN J DEJESUS MD Ot Z90.49 ACQUIRED ABSENCE OF OTHER SPECIFIED PART 11/15/2018 ALICIASAMIR PERSAUD N Ot 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 OF ASCENDING COLON 11/15/2018 ALICIA, BOBAN N Ot 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 AND UNSP MALIGNANT NEOPLASM OF 11/15/2018 ALICIA, KURTAN N Ot C78.7 SECONDARY MALIG NEOPLASM OF LIVER AND IN 11/15/2018 ALICIA, BOBCARLA N Ot 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 11/15/2018 ALICIA, BOBAN N Ot 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 OF ASCENDING COLON 11/15/2018 ALICIA, BOBAN N Ot 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 AND UNSP MALIGNANT NEOPLASM OF 11/15/2018 ALICIA, BOBAN N Ot C78.7 SECONDARY MALIG NEOPLASM OF LIVER AND IN 11/15/2018 ALICIA, BOBAN N Ot E66.01 MORBID (SEVERE) OBESITY DUE TO EXCESS CA 11/15/2018 ALICIA, BOBAN N Ot F17.210 NICOTINE DEPENDENCE, CIGARETTES, UNCOMPL 11/15/2018 ALICIA BOBAN N Ot Z51.11 ENCOUNTER FOR ANTINEOPLASTIC CHEMOTHERAP 11/15/2018 ALICIA, BOBAN N Ot Z68.41 BODY MASS INDEX (BMI) 40.0-44.9, ADULT 11/15/2018 ALICIA BOBCARLA N Ot Z79.899 OTHER PANTOGRAPHER (CURRENT) DRUG THERAPY 11/15/2018 ALICIA, BOBCARLA N Ot Z90.49 ACQUIRED ABSENCE OF OTHER SPECIFIED PART 12/13/2018 ALICIASAMIR PERSAUD N Ot 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 12/13/2018 ALICIA BOBAN N Ot 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 OF ASCENDING COLON 12/13/2018 ALICIA, BOBAN N Ot 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 AND UNSP MALIGNANT NEOPLASM OF 12/13/2018 ALICIA, BOBAN N Ot C78.7 SECONDARY MALIG NEOPLASM OF LIVER AND IN 12/13/2018 ALICIA BOBAN N Ot E66.01 MORBID (SEVERE) OBESITY DUE TO EXCESS CA 12/13/2018 ALICIA BOBAN N Ot F17.210 NICOTINE DEPENDENCE, CIGARETTES, UNCOMPL 12/13/2018 ALICIA BOBAN N Ot Z51.11 ENCOUNTER FOR ANTINEOPLASTIC CHEMOTHERAP 12/13/2018 ALICIA, BOBAN N Ot Z68.41 BODY MASS INDEX (BMI) 40.0-44.9, ADULT 12/13/2018 SAMIR VARGAS N Ot Z79.899 OTHER SNF (CURRENT) DRUG THERAPY 12/13/2018 SAMIR VARGAS N Ot Z90.49 ACQUIRED ABSENCE OF OTHER SPECIFIED PART 12/14/2018 SAMIR VARGAS N Ot 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 12/14/2018 SAMRI VARGAS N Ot 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 OF ASCENDING COLON 12/14/2018 SAMIR VARGAS N Ot 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 AND UNSP MALIGNANT NEOPLASM OF 12/14/2018 SAMIR VARGAS N Ot C78.7 SECONDARY MALIG NEOPLASM OF LIVER AND IN 12/14/2018 SAMIR VARGAS N Ot E66.01 MORBID (SEVERE) OBESITY DUE TO EXCESS CA 12/14/2018 SAMIR VARGAS N Ot F17.210 NICOTINE DEPENDENCE, CIGARETTES, UNCOMPL 12/14/2018 SAMIR VARGAS N Ot Z51.11 ENCOUNTER FOR ANTINEOPLASTIC CHEMOTHERAP 12/14/2018 SAMIR VARGAS N Ot Z68.41 BODY MASS INDEX (BMI) 40.0-44.9, ADULT 12/14/2018 SAMIR VARGAS N Ot Z79.899 OTHER PANTOGRAPHER (CURRENT) DRUG THERAPY 12/14/2018 SAMIR VARGAS N Ot Z90.49 ACQUIRED ABSENCE OF OTHER SPECIFIED PART 12/26/2018 SAMIR VARGAS N Ot 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 12/26/2018 SAMIR VARGAS N Ot 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 OF ASCENDING COLON 12/26/2018 SAMIR VARGAS N Ot 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 AND UNSP MALIGNANT NEOPLASM OF 12/26/2018 SAMIR VARGAS N Ot C78.7 SECONDARY MALIG NEOPLASM OF LIVER AND IN 12/26/2018 SAMIR VARGAS N Ot E66.01 MORBID (SEVERE) OBESITY DUE TO EXCESS CA 12/26/2018 SAMIR VARGAS N Ot F17.210 NICOTINE DEPENDENCE, CIGARETTES, UNCOMPL 12/26/2018 SAMIR VARGAS N Ot Z68.41 BODY MASS INDEX (BMI) 40.0-44.9, ADULT 12/26/2018 SAMIR VARGAS N Ot Z79.899 OTHER PANTOGRAPHER (CURRENT) DRUG THERAPY 12/26/2018 SAMIR VARGAS N Ot Z90.49 ACQUIRED ABSENCE OF OTHER SPECIFIED PART 12/29/2018 SAMIR VARGAS N Ot 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 12/29/2018 SAMIR VARGAS N Ot 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 OF ASCENDING COLON 12/29/2018 SAMIR VARGAS N Ot 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 AND UNSP MALIGNANT NEOPLASM OF 12/29/2018 SAMIR VARGAS N Ot C78.7 SECONDARY MALIG NEOPLASM OF LIVER AND IN 12/29/2018 SAMIR VARGAS N Ot E66.01 MORBID (SEVERE) OBESITY DUE TO EXCESS CA 12/29/2018 SAMIR VARGAS N Ot F17.210 NICOTINE DEPENDENCE, CIGARETTES, UNCOMPL 12/29/2018 SAMIR VARGAS N Ot Z68.41 BODY MASS INDEX (BMI) 40.0-44.9, ADULT 12/29/2018 SAMIR VARGAS N Ot Z79.899 OTHER PANTOGRAPHER (CURRENT) DRUG THERAPY 12/29/2018 SAMIR VARGAS N Ot Z90.49 ACQUIRED ABSENCE OF OTHER SPECIFIED PART 12/31/2018 SCOTT MCKEE POWDERED SUGAR SUPERVISOR Ot 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 OF ASCENDING COLON 12/31/2018 SCOTT MCKEE POWDERED SUGAR SUPERVISOR Ot 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 AND UNSP MALIGNANT NEOPLASM OF 12/31/2018 SCOTT MCKEE POWDERED SUGAR SUPERVISOR Ot C78.7 SECONDARY MALIG NEOPLASM OF LIVER AND IN 12/31/2018 SCOTT MCKEE POWDERED SUGAR SUPERVISOR Ot Z95.828 PRESENCE OF OTHER VASCULAR IMPLANTS AND 12/31/2018 SCOTT MCKEE POWDERED SUGAR SUPERVISOR Ot Z98.890 OTHER SPECIFIED POSTPROCEDURAL STATES 02/13/2019 SAMIR VARGAS N Ot 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 02/13/2019 SAMIR VARGAS N Ot 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 OF ASCENDING COLON 02/13/2019 SAMIR VARGAS N Ot 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 AND UNSP MALIGNANT NEOPLASM OF 02/13/2019 SAMIR VARGAS N Ot C78.7 SECONDARY MALIG NEOPLASM OF LIVER AND IN 02/13/2019 SAMIR VARGAS N Ot E66.01 MORBID (SEVERE) OBESITY DUE TO EXCESS CA 02/13/2019 SAMIR VARGAS N Ot F17.210 NICOTINE DEPENDENCE, CIGARETTES, UNCOMPL 02/13/2019 SAMIR VARGAS Ankur Ot Z51.11 ENCOUNTER FOR ANTINEOPLASTIC CHEMOTHERAP 02/13/2019 SAMIR VARGAS N Ot Z68.41 BODY MASS INDEX (BMI) 40.0-44.9, ADULT 02/13/2019 SAMIR VARGAS N Ot Z79.899 OTHER SNF (CURRENT) DRUG THERAPY 02/13/2019 SAMIR VARGAS N Ot Z90.49 ACQUIRED ABSENCE OF OTHER SPECIFIED PART 02/15/2019 SAMIR VARGAS N Ot 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 02/15/2019 SAMIR VARGAS N Ot 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 OF ASCENDING COLON 02/15/2019 SAMIR VARGAS N Ot 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 AND UNSP MALIGNANT NEOPLASM OF 02/15/2019 SAMIR VARGAS N Ot C78.7 SECONDARY MALIG NEOPLASM OF LIVER AND IN 02/15/2019 SAMIR VARGAS N Ot E66.01 MORBID (SEVERE) OBESITY DUE TO EXCESS CA 02/15/2019 ALICIASAMIR PERSAUD N Ot F17.210 NICOTINE DEPENDENCE, CIGARETTES, UNCOMPL 02/15/2019 SAMIR VARGAS N Ot Z51.11 ENCOUNTER FOR ANTINEOPLASTIC CHEMOTHERAP 02/15/2019 SAMIR VARGAS N Ot Z68.41 BODY MASS INDEX (BMI) 40.0-44.9, ADULT 02/15/2019 SAMIR VARGAS Ot Z79.899 OTHER PANTOGRAPHER (CURRENT) DRUG THERAPY 02/15/2019 SAMIR VARGAS Ot Z90.49 ACQUIRED ABSENCE OF OTHER SPECIFIED PART 02/20/2019 SAMIR VARGAS N Ot 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 02/20/2019 SAMIR VARGAS N Ot 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 OF ASCENDING COLON 02/20/2019 SAMIR VARGAS N Ot 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 AND UNSP MALIGNANT NEOPLASM OF 02/20/2019 SAMIR VARGAS N Ot C78.7 SECONDARY MALIG NEOPLASM OF LIVER AND IN 02/20/2019 SAMIR VARGAS N Ot E66.01 MORBID (SEVERE) OBESITY DUE TO EXCESS CA 02/20/2019 ALICIASAMIR N Ot F17.210 NICOTINE DEPENDENCE, CIGARETTES, UNCOMPL 02/20/2019 SAMIR VARGAS N Ot Z68.41 BODY MASS INDEX (BMI) 40.0-44.9, ADULT 02/20/2019 SAMIR VARGAS N Ot Z79.899 OTHER PANTOGRAPHER (CURRENT) DRUG THERAPY 02/20/2019 SAMIR VARGAS Ot Z90.49 ACQUIRED ABSENCE OF OTHER SPECIFIED PART 02/21/2019 SAMIR VARGAS Ot 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 02/21/2019 SAMIR VARGAS Ot 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 OF ASCENDING COLON 02/21/2019 SAMIR VARGAS Ot 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 AND UNSP MALIGNANT NEOPLASM OF 02/21/2019 SAMIR VARGAS Ot C78.7 SECONDARY MALIG NEOPLASM OF LIVER AND IN 02/21/2019 SAMIR AVRGAS Ot E66.01 MORBID (SEVERE) OBESITY DUE TO EXCESS CA 02/21/2019 SAMIR VARGAS Ankur Ot F17.210 NICOTINE DEPENDENCE, CIGARETTES, UNCOMPL 02/21/2019 SAMIR VARGAS Ankur Ot Z68.41 BODY MASS INDEX (BMI) 40.0-44.9, ADULT 02/21/2019 SAMIR VARGAS Ot Z79.899 OTHER SNF (CURRENT) DRUG THERAPY 02/21/2019 SAMIR VARGAS Ot Z90.49 ACQUIRED ABSENCE OF OTHER SPECIFIED PART 03/15/2019 KAMILA FLORES MD Ot V68.01 DISABILITY EXAMINATION 03/15/2019 KAMILA FLORES MD Ot V82.89 SCREEN FOR OTH SPECIF CONDITIONS 03/15/2019 CHRIS YUEN, MONIE Fiore Ot R10. 31 RIGHT LOWER QUADRANT PAIN 03/15/2019 SAMIR VARGAS Ot C18.9 MALIGNANT NEOPLASM OF COLON, UNSPECIFIED 03/15/2019 SAMIR VARGAS Ankur Ot K08.9 DISORDER OF TEETH AND SUPPORTING STRUCTU 03/15/2019 SAMIR VARGAS Ankur Ot K76.9 LIVER DISEASE, UNSPECIFIED 03/15/2019 SAMIR VARGAS Ot Z90.49 ACQUIRED ABSENCE OF OTHER SPECIFIED PART 03/15/2019 YULISSA CASTANEDA MD Ot S22.082S UNSTABLE BURST FRACTURE OF T11-T12 VERTE 03/15/2019 YULISSA CASTANEDA MD Ot X58.XXXS EXPOSURE TO OTHER SPECIFIED FACTORS, SEQ 03/15/2019 YULISSA CASTANEDA MD Ot Y99.8 OTHER EXTERNAL CAUSE STATUS 03/15/2019 YULISSA CASTANEDA MD Ot Z98.1 ARTHRODESIS STATUS 03/15/2019 JUAN J DEJESUS MD Ot 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 OF ASCENDING COLON 03/15/2019 JUAN J DEJESUS MD Ot 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 AND UNSP MALIGNANT NEOPLASM OF 03/15/2019 JUAN J DEJESUS MD Ot Z90.49 ACQUIRED ABSENCE OF OTHER SPECIFIED PART 03/15/2019 YAIR STONE Ot Z48. 89 ENCOUNTER FOR OTHER SPECIFIED SURGICAL A 03/15/2019 YAIR STONE Ot Z98. 1 ARTHRODESIS STATUS 03/15/2019 JUAN J DEJESUS MD Ot 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 OF ASCENDING COLON 03/15/2019 JUAN J DEJESUS MD Ot C78.7 SECONDARY MALIG NEOPLASM OF LIVER AND IN 03/15/2019 SCOTT MCKEE S POWDERED SUGAR SUPERVISOR Ot 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 OF ASCENDING COLON 03/15/2019 SCOTT MCKEE POWDERED SUGAR SUPERVISOR Ot 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 AND UNSP MALIGNANT NEOPLASM OF 03/15/2019 SCOTT MCKEE S POWDERED SUGAR SUPERVISOR Ot C78.7 SECONDARY MALIG NEOPLASM OF LIVER AND IN 03/15/2019 SCOTT MCKEE S POWDERED SUGAR SUPERVISOR Ot K80.20 CALCULUS OF GALLBLADDER W/O CHOLECYSTITI 03/15/2019 SCOTT MCKEE S POWDERED SUGAR SUPERVISOR Ot R91.8 OTHER NONSPECIFIC ABNORMAL FINDING OF DRE 03/15/2019 SCOTT MCKEE POWDERED SUGAR SUPERVISOR Ot Z95.828 PRESENCE OF OTHER VASCULAR IMPLANTS AND 03/15/2019 YULISSA CASTANEDA MD Ot M54.9 DORSALGIA, UNSPECIFIED 03/15/2019 YULISSA CASTANEDA MD Ot Z48.89 ENCOUNTER FOR OTHER SPECIFIED SURGICAL A 03/15/2019 YULISSA CASTANEDA MD Ot Z98.1 ARTHRODESIS STATUS 03/15/2019 SAMIR VARGAS Ot 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 OF ASCENDING COLON 03/15/2019 SAMIR VARGAS Ot 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 AND UNSP MALIGNANT NEOPLASM OF 03/15/2019 SAMIR VARGAS Ot C78.7 SECONDARY MALIG NEOPLASM OF LIVER AND IN 03/15/2019 SCOTT MCKEE S POWDERED SUGAR SUPERVISOR Ot 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 OF ASCENDING COLON 03/15/2019 SCOTT MCKEE S POWDERED SUGAR SUPERVISOR Ot 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 AND UNSP MALIGNANT NEOPLASM OF 03/15/2019 SCOTT MCKEE S POWDERED SUGAR SUPERVISOR Ot C78.7 SECONDARY MALIG NEOPLASM OF LIVER AND IN 03/15/2019 SCOTT MCKEE POWDERED SUGAR SUPERVISOR Ot Z95.828 PRESENCE OF OTHER VASCULAR IMPLANTS AND 03/15/2019 SCOTT MCKEE POWDERED SUGAR SUPERVISOR Ot Z98.890 OTHER SPECIFIED POSTPROCEDURAL STATES 03/15/2019 SAMIR VARGAS Ankur Ot 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 03/15/2019 SAMIR VARGAS Ankur Ot 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 OF ASCENDING COLON 03/15/2019 SAMIR VARGAS Ankur Ot 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 AND UNSP MALIGNANT NEOPLASM OF 03/15/2019 SAMIR VARGAS N Ot C78.7 SECONDARY MALIG NEOPLASM OF LIVER AND IN 03/15/2019 SAMIR VARGAS N Ot E66.01 MORBID (SEVERE) OBESITY DUE TO EXCESS CA 03/15/2019 SAMIR VARGAS Ankur Ot F17.210 NICOTINE DEPENDENCE, CIGARETTES, UNCOMPL 03/15/2019 SAMIR VARGAS N Ot Z51.11 ENCOUNTER FOR ANTINEOPLASTIC CHEMOTHERAP 03/15/2019 SAMIR VARGAS N Ot Z68.41 BODY MASS INDEX (BMI) 40.0-44.9, ADULT 03/15/2019 SAMIR VARGAS N Ot Z79.899 OTHER SNF (CURRENT) DRUG THERAPY 03/15/2019 SAMIR VARGAS N Ot Z90.49 ACQUIRED ABSENCE OF OTHER SPECIFIED PART 03/16/2019 SAMIR VARGAS Ankur Ot 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 OF ASCENDING COLON 03/16/2019 SAMIR VARGAS N Ot 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 AND UNSP MALIGNANT NEOPLASM OF 03/16/2019 SAMIR VARGAS N Ot C78.7 SECONDARY MALIG NEOPLASM OF LIVER AND IN 03/16/2019 SAMIR VARGAS Ankur Ot K76.9 LIVER DISEASE, UNSPECIFIED 03/16/2019 SAMIR VARGAS N Ot Z87.81 PERSONAL HISTORY OF (HEALED) TRAUMATIC F 03/16/2019 SMAIR VARGAS N Ot Z95.828 PRESENCE OF OTHER VASCULAR IMPLANTS AND 03/16/2019 SAMIR VARGAS N Ot Z98.1 ARTHRODESIS STATUS 03/20/2019 SAMIR VARGAS N Ot 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 03/20/2019 ALICIA KURTCARLA N Ot 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 OF ASCENDING COLON 03/20/2019 ALICIA KURTCARLA Ankur Ot 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 AND UNSP MALIGNANT NEOPLASM OF 03/20/2019 SAMIR VARGAS N Ot C78.7 SECONDARY MALIG NEOPLASM OF LIVER AND IN 03/20/2019 SAMIR VARGAS Ankur Ot E66.01 MORBID (SEVERE) OBESITY DUE TO EXCESS CA 03/20/2019 SAMIR VARGAS N Ot F17.210 NICOTINE DEPENDENCE, CIGARETTES, UNCOMPL 03/20/2019 SAMIR VARGAS N Ot Z51.11 ENCOUNTER FOR ANTINEOPLASTIC CHEMOTHERAP 03/20/2019 SAMIR VARGAS N Ot Z68.41 BODY MASS INDEX (BMI) 40.0-44.9, ADULT 03/20/2019 SAMIR VARGAS Ankur Ot Z79.899 OTHER PANTOGRAPHER (CURRENT) DRUG THERAPY 03/20/2019 SAMIR VARGAS Ankur Ot Z90.49 ACQUIRED ABSENCE OF OTHER SPECIFIED PART 03/29/2019 SAMIR VARGAS Ankur Ot 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 OF ASCENDING COLON 03/29/2019 SAMIR VARGAS N Ot 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 AND UNSP MALIGNANT NEOPLASM OF 03/29/2019 SAMIR VARGAS Ankur Ot C78.7 SECONDARY MALIG NEOPLASM OF LIVER AND IN 03/29/2019 SAMIR VARGAS Ankur Ot K76.9 LIVER DISEASE, UNSPECIFIED 03/29/2019 SAMIR VARGAS N Ot Z87.81 PERSONAL HISTORY OF (HEALED) TRAUMATIC F 03/29/2019 SAMIR VARGAS Ankur Ot Z95.828 PRESENCE OF OTHER VASCULAR IMPLANTS AND 03/29/2019 SAMIR VARGAS Ankur Ot Z98.1 ARTHRODESIS STATUS 04/23/2019 SAMIR VARGAS Ankur Ot 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 04/23/2019 ALICIA KURTCARLA Ankur Ot 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 OF ASCENDING COLON 04/23/2019 SAMIR VARGAS Ankur Ot 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 AND UNSP MALIGNANT NEOPLASM OF 04/23/2019 SAMIR VARGAS Ankur Ot C78.7 SECONDARY MALIG NEOPLASM OF LIVER AND IN 04/23/2019 SAMIR VARGAS Ankur Ot E66.01 MORBID (SEVERE) OBESITY DUE TO EXCESS CA 04/23/2019 SAMIR VARGAS Ankur Ot F17.210 NICOTINE DEPENDENCE, CIGARETTES, UNCOMPL 04/23/2019 SAMIR VARGAS Ankur Ot Z51.11 ENCOUNTER FOR ANTINEOPLASTIC CHEMOTHERAP 04/23/2019 SAMIR VARGAS N Ot Z68.41 BODY MASS INDEX (BMI) 40.0-44.9, ADULT 04/23/2019 SAMIR VARGAS Ankur Ot Z79.899 OTHER PANTOGRAPHER (CURRENT) DRUG THERAPY 04/23/2019 SAMIR VARGAS Ankur Ot Z90.49 ACQUIRED ABSENCE OF OTHER SPECIFIED PART 05/09/2019 SAMIR VARGAS Ankur Ot 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 OF ASCENDING COLON 05/09/2019 ALICIA SAMIR Pascual Ot 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 AND UNSP MALIGNANT NEOPLASM OF 05/09/2019 ALICIA KURTCARLA N Ot C78.7 SECONDARY MALIG NEOPLASM OF LIVER AND IN 05/09/2019 SAMIR VARGAS Ankur Ot K76.9 LIVER DISEASE, UNSPECIFIED 05/09/2019 ALICIA SAMIR Pascual Ot Z87.81 PERSONAL HISTORY OF (HEALED) TRAUMATIC F 05/09/2019 ALICIA KURTCARLA Ankur Ot Z95.828 PRESENCE OF OTHER VASCULAR IMPLANTS AND 05/09/2019 ALICIA SAMIR Pascual Ot Z98.1 ARTHRODESIS STATUS 05/21/2019 ALICIA KURTCARLA Ankur Ot 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 05/21/2019 ALICIA KURTCARLA Ankur Ot 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 OF ASCENDING COLON 05/21/2019 ALICIA SAMIR N Ot 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 AND UNSP MALIGNANT NEOPLASM OF 05/21/2019 ALICIA KURTCARLA Ankur Ot C78.7 SECONDARY MALIG NEOPLASM OF LIVER AND IN 05/21/2019 SAMIR VARGAS Ankur Ot E66.01 MORBID (SEVERE) OBESITY DUE TO EXCESS CA 05/21/2019 ALICIA KURTCARLA Ankur Ot F17.210 NICOTINE DEPENDENCE, CIGARETTES, UNCOMPL 05/21/2019 SAMIR VARGAS Ankur Ot Z51.11 ENCOUNTER FOR ANTINEOPLASTIC CHEMOTHERAP 05/21/2019 SAMIR VARGAS Ankur Ot Z68.41 BODY MASS INDEX (BMI) 40.0-44.9, ADULT 05/21/2019 SAMIR VARGAS Ankur Ot Z79.899 OTHER PANTOGRAPHER (CURRENT) DRUG THERAPY 05/21/2019 SAMIR VARGAS N Ot Z90.49 ACQUIRED ABSENCE OF OTHER SPECIFIED PART 05/22/2019 ALICIA KURTCARLA N Ot 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 05/22/2019 ALICIA SAMIR Pascual Ot 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 OF ASCENDING COLON 05/22/2019 SAMIR VARGAS N Ot 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 AND UNSP MALIGNANT NEOPLASM OF 05/22/2019 ALICIASAMIR PERSAUD N Ot C78.7 SECONDARY MALIG NEOPLASM OF LIVER AND IN 05/22/2019 SAMIR VARGAS N Ot E66.01 MORBID (SEVERE) OBESITY DUE TO EXCESS CA 05/22/2019 SAMIR VARGAS N Ot F17.210 NICOTINE DEPENDENCE, CIGARETTES, UNCOMPL 05/22/2019 SAMIR VARGAS N Ot Z51.11 ENCOUNTER FOR ANTINEOPLASTIC CHEMOTHERAP 05/22/2019 SAMIR VARGAS N Ot Z68.41 BODY MASS INDEX (BMI) 40.0-44.9, ADULT 05/22/2019 SAMIR VARGAS N Ot Z79.899 OTHER PANTOGRAPHER (CURRENT) DRUG THERAPY 05/22/2019 SAMIR VARGAS N Ot Z90.49 ACQUIRED ABSENCE OF OTHER SPECIFIED PART 05/27/2019 SAMIR VARGAS N Ot 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 05/27/2019 SAMIR VARGAS N Ot 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 OF ASCENDING COLON 05/27/2019 ALICIASAMIR N Ot 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 AND UNSP MALIGNANT NEOPLASM OF 05/27/2019 ALICIA BOBAN N Ot C78.7 SECONDARY MALIG NEOPLASM OF LIVER AND IN 05/27/2019 SAMIR VARGAS N Ot E66.01 MORBID (SEVERE) OBESITY DUE TO EXCESS CA 05/27/2019 SAMIR VARGAS N Ot F17.210 NICOTINE DEPENDENCE, CIGARETTES, UNCOMPL 05/27/2019 SAMIR VARGAS N Ot Z51.11 ENCOUNTER FOR ANTINEOPLASTIC CHEMOTHERAP 05/27/2019 SAMIR VARGAS N Ot Z68.41 BODY MASS INDEX (BMI) 40.0-44.9, ADULT 05/27/2019 SAMIR VARGAS N Ot Z79.899 OTHER PANTOGRAPHER (CURRENT) DRUG THERAPY 05/27/2019 ALICIASAMIR N Ot Z90.49 ACQUIRED ABSENCE OF OTHER SPECIFIED PART 05/28/2019 ALICIA BOBCARLA N Ot 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 05/28/2019 ALICIA BOBAN N Ot 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 OF ASCENDING COLON 05/28/2019 ALICIA BOBAN N Ot 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 AND UNSP MALIGNANT NEOPLASM OF 05/28/2019 ALICIASAMIR PERSAUD N Ot C78.7 SECONDARY MALIG NEOPLASM OF LIVER AND IN 05/28/2019 SAMIR VARGAS N Ot E66.01 MORBID (SEVERE) OBESITY DUE TO EXCESS CA 05/28/2019 SAMIR VARGAS N Ot F17.210 NICOTINE DEPENDENCE, CIGARETTES, UNCOMPL 05/28/2019 SAMIR VARGAS N Ot Z51.11 ENCOUNTER FOR ANTINEOPLASTIC CHEMOTHERAP 05/28/2019 SAMIR VARGAS N Ot Z68.41 BODY MASS INDEX (BMI) 40.0-44.9, ADULT 05/28/2019 SAMIR VARGAS N Ot Z79.899 OTHER SNF (CURRENT) DRUG THERAPY 05/28/2019 SAMIR VARGAS N Ot Z90.49 ACQUIRED ABSENCE OF OTHER SPECIFIED PART 05/30/2019 SAMIR VARGAS N Ot 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 05/30/2019 ALICIA BOBCARLA N Ot 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 OF ASCENDING COLON 05/30/2019 SAMIR VARGAS N Ot 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 AND UNSP MALIGNANT NEOPLASM OF 05/30/2019 SAMIR VARGAS N Ot C78.7 SECONDARY MALIG NEOPLASM OF LIVER AND IN 05/30/2019 SAMIR VARGAS N Ot E66.01 MORBID (SEVERE) OBESITY DUE TO EXCESS CA 05/30/2019 SAMIR VARGAS N Ot F17.210 NICOTINE DEPENDENCE, CIGARETTES, UNCOMPL 05/30/2019 SAMIR VARGAS N Ot Z51.11 ENCOUNTER FOR ANTINEOPLASTIC CHEMOTHERAP 05/30/2019 SAMIR VARGAS N Ot Z68.41 BODY MASS INDEX (BMI) 40.0-44.9, ADULT 05/30/2019 SAMIR VARGAS N Ot Z79.899 OTHER PANTOGRAPHER (CURRENT) DRUG THERAPY 05/30/2019 SAMIR VARGAS N Ot Z90.49 ACQUIRED ABSENCE OF OTHER SPECIFIED PART 06/13/2019 ALICIASAMIR N Ot 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 06/13/2019 ALICIA BOBCARLA N Ot 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 OF ASCENDING COLON 06/13/2019 ALICIA BOBAN N Ot 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 AND UNSP MALIGNANT NEOPLASM OF 06/13/2019 ALICIASAMIR PERSAUD N Ot C78.7 SECONDARY MALIG NEOPLASM OF LIVER AND IN 06/13/2019 SAMIR VARGAS N Ot E66.01 MORBID (SEVERE) OBESITY DUE TO EXCESS CA 06/13/2019 SAMIR VARGAS N Ot F17.210 NICOTINE DEPENDENCE, CIGARETTES, UNCOMPL 06/13/2019 SAMIR VARGAS Ankur Ot Z51.11 ENCOUNTER FOR ANTINEOPLASTIC CHEMOTHERAP 06/13/2019 SAMIR VARGAS Ankur Ot Z68.41 BODY MASS INDEX (BMI) 40.0-44.9, ADULT 06/13/2019 SAMIR VARGAS Ankur Ot Z79.899 OTHER SNF (CURRENT) DRUG THERAPY 06/13/2019 SAMIR VARGAS Ankur Ot Z90.49 ACQUIRED ABSENCE OF OTHER SPECIFIED PART 06/21/2019 SAMIR VARGAS N Ot C18.9 MALIGNANT NEOPLASM OF COLON, UNSPECIFIED 06/21/2019 ALICIA, KURTCARLA N Ot 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 AND UNSP MALIGNANT NEOPLASM OF 06/21/2019 ALICIA KURTCARLA N Ot C78.7 SECONDARY MALIG NEOPLASM OF LIVER AND IN 06/21/2019 ALICIA, KURTCARLA Ankur Ot K80.20 CALCULUS OF GALLBLADDER W/O CHOLECYSTITI 06/21/2019 ALICIA KURTCARLA Ankur Ot Z95.828 PRESENCE OF OTHER VASCULAR IMPLANTS AND 06/21/2019 SAMIR VARGAS Ankur Ot Z98.890 OTHER SPECIFIED POSTPROCEDURAL STATES 06/29/2019 SAMIR VARGAS Ankur Ot 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 06/29/2019 ALICIA KURTCARLA Ankur Ot 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 OF ASCENDING COLON 06/29/2019 SAMIR VARGAS Ankur Ot 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 AND UNSP MALIGNANT NEOPLASM OF 06/29/2019 ALICIA KURTCARLA Ankur Ot C78.7 SECONDARY MALIG NEOPLASM OF LIVER AND IN 06/29/2019 SAMIR VARGAS Ankur Ot E66.01 MORBID (SEVERE) OBESITY DUE TO EXCESS CA 06/29/2019 SAMIR VARGAS Ankur Ot F17.210 NICOTINE DEPENDENCE, CIGARETTES, UNCOMPL 06/29/2019 SAMIR VARGAS Ankur Ot Z51.11 ENCOUNTER FOR ANTINEOPLASTIC CHEMOTHERAP 06/29/2019 SAMIR VARGAS Ankur Ot Z68.41 BODY MASS INDEX (BMI) 40.0-44.9, ADULT 06/29/2019 SAMIR VARGAS Ankur Ot Z79.899 OTHER SNF (CURRENT) DRUG THERAPY 06/29/2019 SAMIR VARGAS N Ot Z90.49 ACQUIRED ABSENCE OF OTHER SPECIFIED PART 07/17/2019 SAMIR VARGAS N Ot 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 07/17/2019 SAMIR VARGAS N Ot 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 OF ASCENDING COLON 07/17/2019 SAMIR VARGAS N Ot 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 AND UNSP MALIGNANT NEOPLASM OF 07/17/2019 SAMIR VARGAS N Ot C78.7 SECONDARY MALIG NEOPLASM OF LIVER AND IN 07/17/2019 SAMIR VARGAS N Ot E66.01 MORBID (SEVERE) OBESITY DUE TO EXCESS CA 07/17/2019 SAMIR VARGAS N Ot F17.210 NICOTINE DEPENDENCE, CIGARETTES, UNCOMPL 07/17/2019 SAMIR VARGAS N Ot Z51.11 ENCOUNTER FOR ANTINEOPLASTIC CHEMOTHERAP 07/17/2019 SAMIR VARGAS N Ot Z68.41 BODY MASS INDEX (BMI) 40.0-44.9, ADULT 07/17/2019 SAMIR VARGAS N Ot Z79.899 OTHER PANTOGRAPHER (CURRENT) DRUG THERAPY 07/17/2019 SAMIR VARGAS N Ot Z90.49 ACQUIRED ABSENCE OF OTHER SPECIFIED PART 07/26/2019 SAMIR VARGAS N Ot 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 07/26/2019 SAMIR VARGAS N Ot 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 OF ASCENDING COLON 07/26/2019 SAMIR VARGAS N Ot 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 AND UNSP MALIGNANT NEOPLASM OF 07/26/2019 SAMIR VARGAS N Ot C78.7 SECONDARY MALIG NEOPLASM OF LIVER AND IN 07/26/2019 SAMIR VARGAS N Ot E66.01 MORBID (SEVERE) OBESITY DUE TO EXCESS CA 07/26/2019 SAMIR VARGAS N Ot F17.210 NICOTINE DEPENDENCE, CIGARETTES, UNCOMPL 07/26/2019 SAMIR VARGAS N Ot Z51.11 ENCOUNTER FOR ANTINEOPLASTIC CHEMOTHERAP 07/26/2019 SAMIR VARGAS N Ot Z68.41 BODY MASS INDEX (BMI) 40.0-44.9, ADULT 07/26/2019 SAMIR VARGAS N Ot Z79.899 OTHER PANTOGRAPHER (CURRENT) DRUG THERAPY 07/26/2019 SAMIR VARGAS N Ot Z90.49 ACQUIRED ABSENCE OF OTHER SPECIFIED PART 08/01/2019 SAMIR VARGAS N Ot C18.9 MALIGNANT NEOPLASM OF COLON, UNSPECIFIED 08/01/2019 ALICIA SAMIR Pascual Ot 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 AND UNSP MALIGNANT NEOPLASM OF 08/01/2019 ALICIA SAMIR Pascual Ot C78.7 SECONDARY MALIG NEOPLASM OF LIVER AND IN 08/01/2019 ALICIA SAMIR Pascual Ot K80.20 CALCULUS OF GALLBLADDER W/O CHOLECYSTITI 08/01/2019 ALICIA SAMIR Pascual Ot Z95.828 PRESENCE OF OTHER VASCULAR IMPLANTS AND 08/01/2019 ALICIA SAMIR Pascual Ot Z98.890 OTHER SPECIFIED POSTPROCEDURAL STATES 08/28/2019 ALICIA SAMIR Pascual Ot 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 08/28/2019 ALICIA SAMIR Pascual Ot 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 OF ASCENDING COLON 08/28/2019 ALICIASAMIR Ot 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 AND UNSP MALIGNANT NEOPLASM OF 08/28/2019 ALICIA SAMIR Pascual Ot C78.7 SECONDARY MALIG NEOPLASM OF LIVER AND IN 08/28/2019 ALICIASAMIR Ot E66.01 MORBID (SEVERE) OBESITY DUE TO EXCESS CA 08/28/2019 ALICIASAMIR Ot F17.210 NICOTINE DEPENDENCE, CIGARETTES, UNCOMPL 08/28/2019 ALICIA SAMIR N Ot Z51.11 ENCOUNTER FOR ANTINEOPLASTIC CHEMOTHERAP 08/28/2019 ALICIA, SAMIR Pascual Ot Z68.41 BODY MASS INDEX (BMI) 40.0-44.9, ADULT 08/28/2019 ALICIA SAMIR Pascual Ot Z79.899 OTHER SNF (CURRENT) DRUG THERAPY 08/28/2019 ALICIA, SAMIR Pascual Ot Z90.49 ACQUIRED ABSENCE OF OTHER SPECIFIED PART 09/14/2019 ALICIA SAMIR Pascual Ot 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 09/14/2019 ALICIA SAMIR Pascual Ot 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 OF ASCENDING COLON 09/14/2019 ALICIASAMIR Ot 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 AND UNSP MALIGNANT NEOPLASM OF 09/14/2019 ALICIASAMIR Ot C78.7 SECONDARY MALIG NEOPLASM OF LIVER AND IN 09/14/2019 ALICIASAMIR Ot E66.01 MORBID (SEVERE) OBESITY DUE TO EXCESS CA 09/14/2019 SAMIR VARGAS N Ot F17.210 NICOTINE DEPENDENCE, CIGARETTES, UNCOMPL 09/14/2019 ALICIA, BOBAN N Ot Z51.11 ENCOUNTER FOR ANTINEOPLASTIC CHEMOTHERAP 09/14/2019 ALICIA SAMIR Pascual Ot Z68.41 BODY MASS INDEX (BMI) 40.0-44.9, ADULT 09/14/2019 SAMIR VARGAS Ankur Ot Z79.899 OTHER SNF (CURRENT) DRUG THERAPY 09/14/2019 ALICIA KURTCARLA Ankur Ot Z90.49 ACQUIRED ABSENCE OF OTHER SPECIFIED PART 10/29/2019 CHARLI YUEN, CHE HORNER S Ot E78.1 PURE HYPERGLYCERIDEMIA 11/02/2019 CHARLI YUEN, CHE HORNER S Ot C18.9 MALIGNANT NEOPLASM OF COLON, UNSPECIFIED 11/05/2019 CHARLI YUEN, CHE HORNER S Ot C18.9 MALIGNANT NEOPLASM OF COLON, UNSPECIFIED 11/06/2019 CHARLI YUEN, CHE HORNER S Ot C18.9 MALIGNANT NEOPLASM OF COLON, UNSPECIFIED 11/06/2019 SAMIR VARGAS Ot 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 11/06/2019 SAMIR VARGAS Ot 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 OF ASCENDING COLON 11/06/2019 SAMIR VARGAS Ot 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 AND UNSP MALIGNANT NEOPLASM OF 11/06/2019 ALICIASAMIR N Ot C78.7 SECONDARY MALIG NEOPLASM OF LIVER AND IN 11/06/2019 ALICIA, SAMIR Pascual Ot E66.01 MORBID (SEVERE) OBESITY DUE TO EXCESS CA 11/06/2019 ALICIA, SAMIR Pascual Ot F17.210 NICOTINE DEPENDENCE, CIGARETTES, UNCOMPL 11/06/2019 ALICIASAMIR Ot K64.8 OTHER HEMORRHOIDS 11/06/2019 ALICIA, SAMIR Pascual Ot Z51.11 ENCOUNTER FOR ANTINEOPLASTIC CHEMOTHERAP 11/06/2019 ALICIA SAMIR Pascual Ot Z68.41 BODY MASS INDEX (BMI) 40.0-44.9, ADULT 11/06/2019 ALICIA SAMIR Pascual Ot Z79.899 OTHER PANTOGRAPHER (CURRENT) DRUG THERAPY 11/06/2019 ALICIA SAMIR Pascual Ot Z80.0 FAMILY HISTORY OF MALIGNANT NEOPLASM OF 11/06/2019 ALICIA KURTCARLA Ankur Ot Z90.49 ACQUIRED ABSENCE OF OTHER SPECIFIED PART 11/06/2019 SAMIR VARGAS Ot C18.9 MALIGNANT NEOPLASM OF COLON, UNSPECIFIED 11/06/2019 SAMIR VARGAS Ot 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 AND UNSP MALIGNANT NEOPLASM OF 11/06/2019 SAMIR VARGAS Ot C78.7 SECONDARY MALIG NEOPLASM OF LIVER AND IN 11/06/2019 SAMIR VARGAS Ot K80.20 CALCULUS OF GALLBLADDER W/O CHOLECYSTITI 11/06/2019 SAMIR VARGAS Ot Z95.828 PRESENCE OF OTHER VASCULAR IMPLANTS AND 11/06/2019 SAMIR VARGAS Ot Z98.890 OTHER SPECIFIED POSTPROCEDURAL STATES 11/08/2019 CHE AUGUSTIN MD S Ot C18.9 MALIGNANT NEOPLASM OF COLON, UNSPECIFIED 11/08/2019 CHE AUGUSTIN MD S Ot C18.9 MALIGNANT NEOPLASM OF COLON, UNSPECIFIED 11/09/2019 CHE AUGUSTIN MD S Ot C18.9 MALIGNANT NEOPLASM OF COLON, UNSPECIFIED 12/04/2019 SAMIR VARGAS Ot 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 12/04/2019 SAMIR VARGAS Ot 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 OF ASCENDING COLON 12/04/2019 SAMIR VARGAS Ot 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 AND UNSP MALIGNANT NEOPLASM OF 12/04/2019 SAMIR VARGAS Ot C78.7 SECONDARY MALIG NEOPLASM OF LIVER AND IN 12/04/2019 SAMIR VARGAS Ot E66.01 MORBID (SEVERE) OBESITY DUE TO EXCESS CA 12/04/2019 SAMIR VARGAS Ot F17.210 NICOTINE DEPENDENCE, CIGARETTES, UNCOMPL 12/04/2019 SAMIR VARGAS Ot K64.8 OTHER HEMORRHOIDS 12/04/2019 SAMIR VARGAS Ot Z51.11 ENCOUNTER FOR ANTINEOPLASTIC CHEMOTHERAP 12/04/2019 SAMIR VARGAS Ot Z68.41 BODY MASS INDEX (BMI) 40.0-44.9, ADULT 12/04/2019 SAMIR VARGAS Ot Z79.899 OTHER PANTOGRAPHER (CURRENT) DRUG THERAPY 12/04/2019 SAMIR VARGAS Ot Z80.0 FAMILY HISTORY OF MALIGNANT NEOPLASM OF 12/04/2019 SAMIR VARGAS Ot Z90.49 ACQUIRED ABSENCE OF OTHER SPECIFIED PART 12/05/2019 SAMIR VARGAS Ot 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 12/05/2019 SAMIR VARGAS Ot 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 OF ASCENDING COLON 12/05/2019 SAMIR VARGAS Ot 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 AND UNSP MALIGNANT NEOPLASM OF 12/05/2019 SAMIR VARGAS Ot C78.7 SECONDARY MALIG NEOPLASM OF LIVER AND IN 12/05/2019 SAMIR VARGAS Ot E66.01 MORBID (SEVERE) OBESITY DUE TO EXCESS CA 12/05/2019 SAMIR VARGAS Ot F17.210 NICOTINE DEPENDENCE, CIGARETTES, UNCOMPL 12/05/2019 SAMIR VARGAS Ot K64.8 OTHER HEMORRHOIDS 12/05/2019 SAMIR VARGAS Ot Z51.11 ENCOUNTER FOR ANTINEOPLASTIC CHEMOTHERAP 12/05/2019 SAMIR VARGAS Ot Z68.41 BODY MASS INDEX (BMI) 40.0-44.9, ADULT 12/05/2019 SAMIR VARGAS Ot Z79.899 OTHER PANTOGRAPHER (CURRENT) DRUG THERAPY 12/05/2019 SAMIR VARGAS Ot Z80.0 FAMILY HISTORY OF MALIGNANT NEOPLASM OF 12/05/2019 SAMIR VARGAS Ot Z90.49 ACQUIRED ABSENCE OF OTHER SPECIFIED PART Procedures Code Description Performed By Per formed On [id number] EX CISION OF MESENTERIC LYMPHATIC, PERC E 04/13/2017 [id number] RE SECTION OF RIGHT LARGE INTESTINE, OPEN 04/13/2017 [id number] RO BOTIC ASSISTED PROCEDURE OF TRUNK, PER 04/13/2017 Results Test Result Range Complete blood count (CBC) with automate d white blood cell (WBC) differential - 04/06/17 08:53 Blood leukocytes automated count (number/volume) 12.7 10*3/uL 4.3-11.0 Blood erythrocytes automated count (number/volume) 4.84 10*6/uL 4.35-5.85 Venous blood hemoglobin measurement (mass/volume) 12.9 g/dL 13.3-17.7 Blood hematocrit (volume fraction) 40 % 40-54 Automated erythrocyte mean corpuscular volume 83 [ foz_us] 80-99 Automated erythrocyte mean corpuscular h emoglobin (mass per erythrocyte) 27 pg 25-34 Automated erythrocyte mean corpuscular h emoglobin concentration measurement (mass/volume) 32 g/dL 32-36 Automated erythrocyte distribution width ratio 15. 8 % 10.0- 14.5 Automated blood platelet count (count/volume) 322 10*3/uL 130-400 Automated blood platelet mean volume measurement 10.1 [foz_us] 7.4-10.4 Automated blood neutrophils/100 leukocytes 61 % 42-75 Automated blood lymphocytes/100 leukocytes 27 % 12-44 Blood monocytes/100 leukocytes 9 % 0-12 Automated blood eosinophils/100 leukocytes 3 % 0-10 Automated blood basophils/100 leukocytes 0 % 0-10 Blood neutrophils automated count (number/volume) 7.8 10*3 1.8-7.8 Blood lymphocytes automated count (number/volume) 3.5 10*3 1.0-4.0 Blood monocytes automated count (number/volume) 1. 1 10*3 0.0-1.0 Automated eosinophil count 0.3 10*3/uL 0 .0-0.3 Automated blood basophil count (count/volume) 0.0 10*3/uL 0.0-0.1 Comprehensive metabolic panel - 04/06/17 08:53 Serum or plasma sodium measurement (moles/volume) 138 mmol/L 135-145 Serum or plasma potassium measurement (moles/volume) 4.2 mmol/L 3.6-5.0 Serum or plasma chloride measurement (moles/volume) 103 mmol/L 98-107 Carbon dioxide 24 mmol/L 21-32 Serum or plasma anion gap determination (moles/volume) 11 mmol/L 5-14 Serum or plasma urea nitrogen measurement (mass/volume ) 13 mg/dL 7-18 Serum or plasma creatinine measurement (mass/volume) 0.97 mg/dL 0.60-1.30 Serum or plasma urea nitrogen/creatinine mass ratio 13 NRG Serum or plasma creatinine measurement w ith calculation of estimated glomerular filtration rate > NRG Serum or plasma glucose measurement (mass/volume) 102 mg/dL 70-105 Serum or plasma calcium measurement (mass/volume) 8.9 mg/dL 8.5-10.1 Serum or plasma total bilirubin measurement (mass/volu me) 0.4 mg/dL 0.1-1.0 Serum or plasma alkaline phosphatase jakob surement (enzymatic activity/volume) 67 U/L 40-136 Serum or plasma aspartate aminotransfera se measurement (enzymatic activity/volume) 24 U/L 5-34 Serum or plasma alanine aminotransferase measurement (enzymatic activity/volume) 36 U/L 0-55 Serum or plasma protein measurement (mass/volume) 7.3 g/dL 6.4-8.2 Serum or plasma albumin measurement (mass/volume) 3.8 g/dL 3.2-4.5 Complete blood count (CBC) with automate d white blood cell (WBC) differential - 04/08/17 09:40 Blood leukocytes automated count (number/volume) 9.5 10*3/uL 4.3-11.0 Blood erythrocytes automated count (number/volume) 5.04 10*6/uL 4.35-5.85 Venous blood hemoglobin measurement (mass/volume) 13.4 g/dL 13.3-17.7 Blood hematocrit (volume fraction) 42 % 40-54 Automated erythrocyte mean corpuscular volume 83 [ foz_us] 80-99 Automated erythrocyte mean corpuscular h emoglobin (mass per erythrocyte) 27 pg 25-34 Automated erythrocyte mean corpuscular h emoglobin concentration measurement (mass/volume) 32 g/dL 32-36 Automated erythrocyte distribution width ratio 15. 6 % 10.0- 14.5 Automated blood platelet count (count/volume) 399 10*3/uL 130-400 Automated blood platelet mean volume measurement 10.1 [foz_us] 7.4-10.4 Automated blood neutrophils/100 leukocytes 68 % 42-75 Automated blood lymphocytes/100 leukocytes 24 % 12-44 Blood monocytes/100 leukocytes 5 % 0-12 Automated blood eosinophils/100 leukocytes 3 % 0-10 Automated blood basophils/100 leukocytes 1 % 0-10 Blood neutrophils automated count (number/volume) 6.5 10*3 1.8-7.8 Blood lymphocytes automated count (number/volume) 2.3 10*3 1.0-4.0 Blood monocytes automated count (number/volume) 0. 5 10*3 0.0-1.0 Automated eosinophil count 0.3 10*3/uL 0 .0-0.3 Automated blood basophil count (count/volume) 0.1 10*3/uL 0.0-0.1 Comprehensive metabolic panel - 04/08/17 09:40 Serum or plasma sodium measurement (moles/volume) 141 mmol/L 135-145 Serum or plasma potassium measurement (moles/volume) 4.2 mmol/L 3.6-5.0 Serum or plasma chloride measurement (moles/volume) 104 mmol/L 98-107 Carbon dioxide 25 mmol/L 21-32 Serum or plasma anion gap determination (moles/volume) 12 mmol/L 5-14 Serum or plasma urea nitrogen measurement (mass/volume ) 12 mg/dL 7-18 Serum or plasma creatinine measurement (mass/volume) 1.06 mg/dL 0.60-1.30 Serum or plasma urea nitrogen/creatinine mass ratio 11 NRG Serum or plasma creatinine measurement w ith calculation of estimated glomerular filtration rate > NRG Serum or plasma glucose measurement (mass/volume) 123 mg/dL 70-105 Serum or plasma calcium measurement (mass/volume) 9.2 mg/dL 8.5-10.1 Serum or plasma total bilirubin measurement (mass/volu me) 0.3 mg/dL 0.1-1.0 Serum or plasma alkaline phosphatase jakob surement (enzymatic activity/volume) 70 U/L 40-136 Serum or plasma aspartate aminotransfera se measurement (enzymatic activity/volume) 20 U/L 5-34 Serum or plasma alanine aminotransferase measurement (enzymatic activity/volume) 28 U/L 0-55 Serum or plasma protein measurement (mass/volume) 7.5 g/dL 6.4-8.2 Serum or plasma albumin measurement (mass/volume) 3.9 g/dL 3.2-4.5 Blood type T Indirect antibody screen [facility] - 04/08/17 09:40 ABO+Rh group AN NRG Blood group antibody screen NEGATIVE NR G Methicillin resistant Staphylococcus aur eus (MRSA) screening culture - 04/08/17 09:40 Methicillin resistant Staphylococcus aureus (MRSA) scr eening culture NEG NRG Blood type T Indirect antibody screen [facility] - 04/13/17 07:02 ABO+Rh group AN NRG Transfusion band number [id number] NRG Blood group antibody screen NEGATIVE NR G Complete blood count (CBC) with automate d white blood cell (WBC) differential - 04/14/17 03:36 Blood leukocytes automated count (number/volume) 11.5 10*3/uL 4.3-11.0 Blood erythrocytes automated count (number/volume) 4.18 10*6/uL 4.35-5.85 Venous blood hemoglobin measurement (mass/volume) 11.0 g/dL 13.3-17.7 Blood hematocrit (volume fraction) 35 % 40-54 Automated erythrocyte mean corpuscular volume 83 [ foz_us] 80-99 Automated erythrocyte mean corpuscular h emoglobin (mass per erythrocyte) 26 pg 25-34 Automated erythrocyte mean corpuscular h emoglobin concentration measurement (mass/volume) 32 g/dL 32-36 Automated erythrocyte distribution width ratio 16. 2 % 10.0- 14.5 Automated blood platelet count (count/volume) 392 10*3/uL 130-400 Automated blood platelet mean volume measurement 9.6 [foz_us] 7.4-10.4 Automated blood neutrophils/100 leukocytes 74 % 42-75 Automated blood lymphocytes/100 leukocytes 15 % 12-44 Blood monocytes/100 leukocytes 11 % 0-12 Automated blood eosinophils/100 leukocytes 0 % 0-10 Automated blood basophils/100 leukocytes 0 % 0-10 Blood neutrophils automated count (number/volume) 8.5 10*3 1.8-7.8 Blood lymphocytes automated count (number/volume) 1.7 10*3 1.0-4.0 Blood monocytes automated count (number/volume) 1. 2 10*3 0.0-1.0 Automated eosinophil count 0.0 10*3/uL 0 .0-0.3 Automated blood basophil count (count/volume) 0.0 10*3/uL 0.0-0.1 Whole blood basic metabolic panel - 06/23 03:36 Serum or plasma sodium measurement (moles/volume) 139 mmol/L 135-145 Serum or plasma potassium measurement (moles/volume) 4.3 mmol/L 3.6-5.0 Serum or plasma chloride measurement (moles/volume) 108 mmol/L 98-107 Carbon dioxide 23 mmol/L 21-32 Serum or plasma anion gap determination (moles/volume) 8 mmol/L 5-14 Serum or plasma urea nitrogen measurement (mass/volume ) 14 mg/dL 7-18 Serum or plasma creatinine measurement (mass/volume) 0.88 mg/dL 0.60-1.30 Serum or plasma urea nitrogen/creatinine mass ratio 16 NRG Serum or plasma creatinine measurement w ith calculation of estimated glomerular filtration rate > NRG Serum or plasma glucose measurement (mass/volume) 142 mg/dL 70-105 Serum or plasma calcium measurement (mass/volume) 8.2 mg/dL 8.5-10.1 Serum or plasma phosphate measurement (m ass/volume) - 04/14/17 03:36 Serum or plasma phosphate measurement (mass/volume) 3.1 mg/dL 2.3-4.7 Magnesium - 04/14/17 03:36 Magnesium 2.0 mg/dL 1.8-2.4 Complete blood count (CBC) with automate d white blood cell (WBC) differential - 04/15/17 04:01 Blood leukocytes automated count (number/volume) 11.2 10*3/uL 4.3-11.0 Blood erythrocytes automated count (number/volume) 3.97 10*6/uL 4.35-5.85 Venous blood hemoglobin measurement (mass/volume) 10.4 g/dL 13.3-17.7 Blood hematocrit (volume fraction) 33 % 40-54 Automated erythrocyte mean corpuscular volume 84 [ foz_us] 80-99 Automated erythrocyte mean corpuscular h emoglobin (mass per erythrocyte) 26 pg 25-34 Automated erythrocyte mean corpuscular h emoglobin concentration measurement (mass/volume) 31 g/dL 32-36 Automated erythrocyte distribution width ratio 16. 6 % 10.0- 14.5 Automated blood platelet count (count/volume) 361 10*3/uL 130-400 Automated blood platelet mean volume measurement 10.2 [foz_us] 7.4-10.4 Automated blood neutrophils/100 leukocytes 67 % 42-75 Automated blood lymphocytes/100 leukocytes 25 % 12-44 Blood monocytes/100 leukocytes 7 % 0-12 Automated blood eosinophils/100 leukocytes 1 % 0-10 Automated blood basophils/100 leukocytes 0 % 0-10 Blood neutrophils automated count (number/volume) 7.5 10*3 1.8-7.8 Blood lymphocytes automated count (number/volume) 2.8 10*3 1.0-4.0 Blood monocytes automated count (number/volume) 0. 8 10*3 0.0-1.0 Automated eosinophil count 0.1 10*3/uL 0 .0-0.3 Automated blood basophil count (count/volume) 0.0 10*3/uL 0.0-0.1 Whole blood basic metabolic panel - 07/24 04:01 Serum or plasma sodium measurement (moles/volume) 140 mmol/L 135-145 Serum or plasma potassium measurement (moles/volume) 3.9 mmol/L 3.6-5.0 Serum or plasma chloride measurement (moles/volume) 107 mmol/L 98-107 Carbon dioxide 23 mmol/L 21-32 Serum or plasma anion gap determination (moles/volume) 10 mmol/L 5-14 Serum or plasma urea nitrogen measurement (mass/volume ) 13 mg/dL 7-18 Serum or plasma creatinine measurement (mass/volume) 0.88 mg/dL 0.60-1.30 Serum or plasma urea nitrogen/creatinine mass ratio 15 NRG Serum or plasma creatinine measurement w ith calculation of estimated glomerular filtration rate > NRG Serum or plasma glucose measurement (mass/volume) 122 mg/dL 70-105 Serum or plasma calcium measurement (mass/volume) 8.5 mg/dL 8.5-10.1 Methicillin resistant Staphylococcus aur eus (MRSA) screening culture - 05/11/17 09:50 Methicillin resistant Staphylococcus aureus (MRSA) scr eening culture NEG NRG Capillary blood glucose measurement by g lucometer (mass/volume) - 05/16/17 17:52 Capillary blood glucose measurement by glucometer (mas s/volume) 232 mg/dL 70-110 Automated blood complete blood count (he mogram) panel - 05/16/17 17:53 Blood leukocytes automated count (number/volume) 26.8 10*3/uL 4.3-11.0 Blood erythrocytes automated count (number/volume) 4.12 10*6/uL 4.35-5.85 Venous blood hemoglobin measurement (mass/volume) 10.8 g/dL 13.3-17.7 Blood hematocrit (volume fraction) 35 % 40-54 Automated erythrocyte mean corpuscular volume 85 [ foz_us] 80-99 Automated erythrocyte mean corpuscular h emoglobin (mass per erythrocyte) 26 pg 25-34 Automated erythrocyte mean corpuscular h emoglobin concentration measurement (mass/volume) 31 g/dL 32-36 Automated erythrocyte distribution width ratio 16. 6 % 10.0- 14.5 Automated blood platelet count (count/volume) 370 10*3/uL 130-400 Automated blood platelet mean volume measurement 9.3 [foz_us] 7.4-10.4 PT panel in platelet poor plasma by coag ulation assay - 05/16/17 17:53 Prothrombin time (PT) in platelet poor plasma by coagu lation assay 14.1 s 12.2-14.7 INR in platelet poor plasma or blood by coagulation as say 1.1 0.8-1.4 Activated partial thromboplastin time (a PTT) in platelet poor plasma bycoagulation assay - 05/16/17 17:53 Activated partial thromboplastin time (a PTT) in platelet poor plasma bycoagulation assay 28 s 24-35 Liver function panel (serum or plasma al k phos, alb, total and direct bili, total protein, ALT, AST) - 05/16/17 17:53 Serum or plasma total bilirubin measurement (mass/volu me) 0.3 mg/dL 0.1-1.0 Serum or plasma alkaline phosphatase jakob surement (enzymatic activity/volume) 73 U/L 40-136 Serum or plasma aspartate aminotransfera se measurement (enzymatic activity/volume) 144 U/L 5-34 Serum or plasma alanine aminotransferase measurement (enzymatic activity/volume) 121 U/L 0-55 Serum or plasma protein measurement (mass/volume) 6.2 g/dL 6.4-8.2 Serum or plasma albumin measurement (mass/volume) 3.5 g/dL 3.2-4.5 Bilirubin direct 0.1 mg/dL 0.0-0.3 Serum or plasma indirect bilirubin measurement (mass/v olume) 0.2 mg/dL NRG Whole blood basic metabolic panel - 05/07 17:53 Serum or plasma sodium measurement (moles/volume) 139 mmol/L 135-145 Serum or plasma potassium measurement (moles/volume) 4.0 mmol/L 3.6-5.0 Serum or plasma chloride measurement (moles/volume) 108 mmol/L 98-107 Carbon dioxide 21 mmol/L 21-32 Serum or plasma anion gap determination (moles/volume) 10 mmol/L 5-14 Serum or plasma urea nitrogen measurement (mass/volume ) 17 mg/dL 7-18 Serum or plasma creatinine measurement (mass/volume) 1.15 mg/dL 0.60-1.30 Serum or plasma urea nitrogen/creatinine mass ratio 15 NRG Serum or plasma creatinine measurement w ith calculation of estimated glomerular filtration rate > NRG Serum or plasma glucose measurement (mass/volume) 225 mg/dL 70-105 Serum or plasma calcium measurement (mass/volume) 7.9 mg/dL 8.5-10.1 Serum or plasma phosphate measurement (m ass/volume) - 05/16/17 17:53 Serum or plasma phosphate measurement (mass/volume) 4.3 mg/dL 2.3-4.7 Magnesium - 05/16/17 17:53 Magnesium 1.8 mg/dL 1.8-2.4 Serum or plasma troponin i.cardiac measu rement (mass/volume) - 05/16/17 17:53 Serum or plasma troponin i.cardiac measurement (mass/v olume) < ng/mL <0.30 Serum or plasma ethanol measurement (mas s/volume) - 05/16/17 17:53 Serum or plasma ethanol measurement (mass/volume) < mg/dL <10 RED CELLS LEUKO REDUCED AS1 - 05/16/17 1 7:53 RED CELLS LEUKO REDUCED AS1 N OT AVAILABLE NRG Blood type T Indirect antibody screen [facility] - 05/16/17 17:53 ABO+Rh group AN NRG Transfusion band number [id number] NRG Blood group antibody screen NEGATIVE NR G Fibrinogen measurement in platelet poor plasma by coagulation assay (mass/volume) - 05/16/17 17:53 Fibrinogen measurement in platelet poor plasma by coagulation assay (mass/volume) 321 mg/dL 221-496 Fibrin D-dimer FEU measurement in platel et poor plasma (mass/volume) - 05/16/17 17:53 Fibrin D-dimer FEU measurement in platelet poor plasma (mass/volume) > ug/mL 0.00-0.49 Blood lactic acid measurement (moles/vol ume) - 05/16/17 18:01 Blood lactic acid measurement (moles/volume) 3.07 mmol/L 0.50-2.00 Capillary blood glucose measurement by g lucometer (mass/volume) - 05/30/17 16:21 Capillary blood glucose measurement by glucometer (mas s/volume) 122 mg/dL 70-110 Complete blood count (CBC) with automate d white blood cell (WBC) differential - 05/31/17 07:41 Blood leukocytes automated count (number/volume) 13.0 10*3/uL 4.3-11.0 Blood erythrocytes automated count (number/volume) 3.45 10*6/uL 4.35-5.85 Venous blood hemoglobin measurement (mass/volume) 9.4 g/dL 13.3-17.7 Blood hematocrit (volume fraction) 31 % 40-54 Automated erythrocyte mean corpuscular volume 90 [ foz_us] 80-99 Automated erythrocyte mean corpuscular h emoglobin (mass per erythrocyte) 27 pg 25-34 Automated erythrocyte mean corpuscular h emoglobin concentration measurement (mass/volume) 30 g/dL 32-36 Automated erythrocyte distribution width ratio 20. 3 % 10.0- 14.5 Automated blood platelet count (count/volume) 442 10*3/uL 130-400 Automated blood platelet mean volume measurement 9.8 [foz_us] 7.4-10.4 Automated blood neutrophils/100 leukocytes 62 % 42-75 Automated blood lymphocytes/100 leukocytes 23 % 12-44 Blood monocytes/100 leukocytes 10 % 0-12 Automated blood eosinophils/100 leukocytes 5 % 0-10 Automated blood basophils/100 leukocytes 0 % 0-10 Blood neutrophils automated count (number/volume) 8.0 10*3 1.8-7.8 Blood lymphocytes automated count (number/volume) 3.0 10*3 1.0-4.0 Blood monocytes automated count (number/volume) 1. 3 10*3 0.0-1.0 Automated eosinophil count 0.6 10*3/uL 0 .0-0.3 Automated blood basophil count (count/volume) 0.1 10*3/uL 0.0-0.1 Comprehensive metabolic panel - 05/31/17 07:41 Serum or plasma sodium measurement (moles/volume) 135 mmol/L 135-145 Serum or plasma potassium measurement (moles/volume) 4.2 mmol/L 3.6-5.0 Serum or plasma chloride measurement (moles/volume) 103 mmol/L 98-107 Carbon dioxide 21 mmol/L 21-32 Serum or plasma anion gap determination (moles/volume) 11 mmol/L 5-14 Serum or plasma urea nitrogen measurement (mass/volume ) 12 mg/dL 7-18 Serum or plasma creatinine measurement (mass/volume) 0.78 mg/dL 0.60-1.30 Serum or plasma urea nitrogen/creatinine mass ratio 15 NRG Serum or plasma creatinine measurement w ith calculation of estimated glomerular filtration rate > NRG Serum or plasma glucose measurement (mass/volume) 116 mg/dL 70-105 Serum or plasma calcium measurement (mass/volume) 8.5 mg/dL 8.5-10.1 Serum or plasma total bilirubin measurement (mass/volu me) 0.8 mg/dL 0.1-1.0 Serum or plasma alkaline phosphatase jakob surement (enzymatic activity/volume) 320 U/L 40-136 Serum or plasma aspartate aminotransfera se measurement (enzymatic activity/volume) 21 U/L 5-34 Serum or plasma alanine aminotransferase measurement (enzymatic activity/volume) 30 U/L 0-55 Serum or plasma protein measurement (mass/volume) 6.5 g/dL 6.4-8.2 Serum or plasma albumin measurement (mass/volume) 3.4 g/dL 3.2-4.5 Capillary blood glucose measurement by g lucometer (mass/volume) - 05/31/17 16:09 Capillary blood glucose measurement by glucometer (mas s/volume) 126 mg/dL 70-110 Blood CBC with ordered manual differenti al panel - 06/01/17 08:00 Blood leukocytes automated count (number/volume) 12.5 10*3/uL 4.3-11.0 Blood erythrocytes automated count (number/volume) 3.22 10*6/uL 4.35-5.85 Venous blood hemoglobin measurement (mass/volume) 8.8 g/dL 13.3-17.7 Blood hematocrit (volume fraction) 29 % 40-54 Automated erythrocyte mean corpuscular volume 90 [ foz_us] 80-99 Automated erythrocyte mean corpuscular h emoglobin (mass per erythrocyte) 27 pg 25-34 Automated erythrocyte mean corpuscular h emoglobin concentration measurement (mass/volume) 30 g/dL 32-36 Automated erythrocyte distribution width ratio 19. 6 % 10.0- 14.5 Automated blood platelet count (count/volume) 475 10*3/uL 130-400 Automated blood platelet mean volume measurement 9.9 [foz_us] 7.4-10.4 Automated blood neutrophils/100 leukocytes 56 % 42-75 Automated blood lymphocytes/100 leukocytes 25 % 12-44 Blood monocytes/100 leukocytes 8 % NRG Automated blood eosinophils/100 leukocytes 4 % 0-10 Automated blood basophils/100 leukocytes 1 % 0-10 Blood neutrophils automated count (number/volume) 7.0 10*3 1.8-7.8 Blood lymphocytes automated count (number/volume) 3.2 10*3 1.0-4.0 Blood monocytes automated count (number/volume) 1. 8 10*3 0.0-1.0 Automated eosinophil count 0.5 10*3/uL 0 .0-0.3 Automated blood basophil count (count/volume) 0.1 10*3/uL 0.0-0.1 Manual blood segmented neutrophils/100 leukocytes 53 % NRG Manual blood lymphocytes/100 leukocytes 33 % NRG Manual eosinophils/100 leukocytes in nose 6 % NRG Blood polychromasia detection by light microscopy MODERATE NRG Blood anisocytosis detection by light microscopy M ODERATE NRG Blood macrocytes detection by light microscopy MOD ERATE NRG Blood ovalocytes detection by light microscopy SLI GHT NRG Blood hypochromia detection by light microscopy MO DERATE NRG Blood stomatocytes detection by light microscopy S LIGHT NRG Whole blood basic metabolic panel - 05/08 04/23 08:00 Serum or plasma sodium measurement (moles/volume) 135 mmol/L 135-145 Serum or plasma potassium measurement (moles/volume) 4.7 mmol/L 3.6-5.0 Serum or plasma chloride measurement (moles/volume) 102 mmol/L 98-107 Carbon dioxide 25 mmol/L 21-32 Serum or plasma anion gap determination (moles/volume) 8 mmol/L 5-14 Serum or plasma urea nitrogen measurement (mass/volume ) 23 mg/dL 7-18 Serum or plasma creatinine measurement (mass/volume) 1.15 mg/dL 0.60-1.30 Serum or plasma urea nitrogen/creatinine mass ratio 20 NRG Serum or plasma creatinine measurement w ith calculation of estimated glomerular filtration rate > NRG Serum or plasma glucose measurement (mass/volume) 125 mg/dL 70-105 Serum or plasma calcium measurement (mass/volume) 8.5 mg/dL 8.5-10.1 Capillary blood glucose measurement by g lucometer (mass/volume) - 06/02/17 16:29 Capillary blood glucose measurement by glucometer (mas s/volume) 98 mg/dL 70-110 Comprehensive metabolic panel - 06/04/17 05:00 Serum or plasma sodium measurement (moles/volume) 134 mmol/L 135-145 Serum or plasma potassium measurement (moles/volume) 4.8 mmol/L 3.6-5.0 Serum or plasma chloride measurement (moles/volume) 103 mmol/L 98-107 Carbon dioxide 19 mmol/L 21-32 Serum or plasma anion gap determination (moles/volume) 12 mmol/L 5-14 Serum or plasma urea nitrogen measurement (mass/volume ) 16 mg/dL 7-18 Serum or plasma creatinine measurement (mass/volume) 0.84 mg/dL 0.60-1.30 Serum or plasma urea nitrogen/creatinine mass ratio 19 NRG Serum or plasma creatinine measurement w ith calculation of estimated glomerular filtration rate > NRG Serum or plasma glucose measurement (mass/volume) 113 mg/dL 70-105 Serum or plasma calcium measurement (mass/volume) 8.6 mg/dL 8.5-10.1 Serum or plasma total bilirubin measurement (mass/volu me) 0.6 mg/dL 0.1-1.0 Serum or plasma alkaline phosphatase jakob surement (enzymatic activity/volume) 457 U/L 40-136 Serum or plasma aspartate aminotransfera se measurement (enzymatic activity/volume) 22 U/L 5-34 Serum or plasma alanine aminotransferase measurement (enzymatic activity/volume) 26 U/L 0-55 Serum or plasma protein measurement (mass/volume) 6.7 g/dL 6.4-8.2 Serum or plasma albumin measurement (mass/volume) 3.5 g/dL 3.2-4.5 Complete blood count (CBC) with automate d white blood cell (WBC) differential - 06/07/17 06:40 Blood leukocytes automated count (number/volume) 6.2 10*3/uL 4.3-11.0 Blood erythrocytes automated count (number/volume) 3.16 10*6/uL 4.35-5.85 Venous blood hemoglobin measurement (mass/volume) 8.5 g/dL 13.3-17.7 Blood hematocrit (volume fraction) 29 % 40-54 Automated erythrocyte mean corpuscular volume 90 [ foz_us] 80-99 Automated erythrocyte mean corpuscular h emoglobin (mass per erythrocyte) 27 pg 25-34 Automated erythrocyte mean corpuscular h emoglobin concentration measurement (mass/volume) 30 g/dL 32-36 Automated erythrocyte distribution width ratio 18. 9 % 10.0- 14.5 Automated blood platelet count (count/volume) 403 10*3/uL 130-400 Automated blood platelet mean volume measurement 9.0 [foz_us] 7.4-10.4 Automated blood neutrophils/100 leukocytes 44 % 42-75 Automated blood lymphocytes/100 leukocytes 39 % 12-44 Blood monocytes/100 leukocytes 11 % 0-12 Automated blood eosinophils/100 leukocytes 5 % 0-10 Automated blood basophils/100 leukocytes 1 % 0-10 Blood neutrophils automated count (number/volume) 2.7 10*3 1.8-7.8 Blood lymphocytes automated count (number/volume) 2.4 10*3 1.0-4.0 Blood monocytes automated count (number/volume) 0. 7 10*3 0.0-1.0 Automated eosinophil count 0.3 10*3/uL 0 .0-0.3 Automated blood basophil count (count/volume) 0.1 10*3/uL 0.0-0.1 Automated blood complete blood count (he mogram) panel - 06/09/17 04:59 Blood leukocytes automated count (number/volume) 6.3 10*3/uL 4.3-11.0 Blood erythrocytes automated count (number/volume) 3.14 10*6/uL 4.35-5.85 Venous blood hemoglobin measurement (mass/volume) 8.5 g/dL 13.3-17.7 Blood hematocrit (volume fraction) 28 % 40-54 Automated erythrocyte mean corpuscular volume 90 [ foz_us] 80-99 Automated erythrocyte mean corpuscular h emoglobin (mass per erythrocyte) 27 pg 25-34 Automated erythrocyte mean corpuscular h emoglobin concentration measurement (mass/volume) 30 g/dL 32-36 Automated erythrocyte distribution width ratio 18. 7 % 10.0- 14.5 Automated blood platelet count (count/volume) 371 10*3/uL 130-400 Automated blood platelet mean volume measurement 9.4 [foz_us] 7.4-10.4 Whole blood basic metabolic panel - 01/21 04:59 Serum or plasma sodium measurement (moles/volume) 136 mmol/L 135-145 Serum or plasma potassium measurement (moles/volume) 4.3 mmol/L 3.6-5.0 Serum or plasma chloride measurement (moles/volume) 103 mmol/L 98-107 Carbon dioxide 25 mmol/L 21-32 Serum or plasma anion gap determination (moles/volume) 8 mmol/L 5-14 Serum or plasma urea nitrogen measurement (mass/volume ) 16 mg/dL 7-18 Serum or plasma creatinine measurement (mass/volume) 0.83 mg/dL 0.60-1.30 Serum or plasma urea nitrogen/creatinine mass ratio 19 NRG Serum or plasma creatinine measurement w ith calculation of estimated glomerular filtration rate > NRG Serum or plasma glucose measurement (mass/volume) 99 mg/dL 70-105 Serum or plasma calcium measurement (mass/volume) 8.5 mg/dL 8.5-10.1 Complete blood count (CBC) with automate d white blood cell (WBC) differential - 09/15/17 13:40 Blood leukocytes automated count (number/volume) 6.8 10*3/uL 4.3-11.0 Blood erythrocytes automated count (number/volume) 5.04 10*6/uL 4.35-5.85 Venous blood hemoglobin measurement (mass/volume) 12.8 g/dL 13.3-17.7 Blood hematocrit (volume fraction) 40 % 40-54 Automated erythrocyte mean corpuscular volume 79 [ foz_us] 80-99 Automated erythrocyte mean corpuscular h emoglobin (mass per erythrocyte) 25 pg 25-34 Automated erythrocyte mean corpuscular h emoglobin concentration measurement (mass/volume) 32 g/dL 32-36 Automated erythrocyte distribution width ratio 18. 3 % 10.0- 14.5 Automated blood platelet count (count/volume) 256 10*3/uL 130-400 Automated blood platelet mean volume measurement 9.7 [foz_us] 7.4-10.4 Automated blood neutrophils/100 leukocytes 54 % 42-75 Automated blood lymphocytes/100 leukocytes 31 % 12-44 Blood monocytes/100 leukocytes 8 % 0-12 Automated blood eosinophils/100 leukocytes 6 % 0-10 Automated blood basophils/100 leukocytes 1 % 0-10 Blood neutrophils automated count (number/volume) 3.7 10*3 1.8-7.8 Blood lymphocytes automated count (number/volume) 2.1 10*3 1.0-4.0 Blood monocytes automated count (number/volume) 0. 6 10*3 0.0-1.0 Automated eosinophil count 0.4 10*3/uL 0 .0-0.3 Automated blood basophil count (count/volume) 0.0 10*3/uL 0.0-0.1 Whole blood basic metabolic panel - 07/24 13:40 Serum or plasma sodium measurement (moles/volume) 136 mmol/L 135-145 Serum or plasma potassium measurement (moles/volume) 4.1 mmol/L 3.6-5.0 Serum or plasma chloride measurement (moles/volume) 103 mmol/L 98-107 Carbon dioxide 26 mmol/L 21-32 Serum or plasma anion gap determination (moles/volume) 7 mmol/L 5-14 Serum or plasma urea nitrogen measurement (mass/volume ) 18 mg/dL 7-18 Serum or plasma creatinine measurement (mass/volume) 0.84 mg/dL 0.60-1.30 Serum or plasma urea nitrogen/creatinine mass ratio 21 NRG Serum or plasma creatinine measurement w ith calculation of estimated glomerular filtration rate > NRG Serum or plasma glucose measurement (mass/volume) 113 mg/dL 70-105 Serum or plasma calcium measurement (mass/volume) 9.2 mg/dL 8.5-10.1 Complete blood count (CBC) with automate d white blood cell (WBC) differential - 11/02/17 09:40 Blood leukocytes automated count (number/volume) 7.6 10*3/uL 4.3-11.0 Blood erythrocytes automated count (number/volume) 4.85 10*6/uL 4.35-5.85 Venous blood hemoglobin measurement (mass/volume) 12.9 g/dL 13.3-17.7 Blood hematocrit (volume fraction) 39 % 40-54 Automated erythrocyte mean corpuscular volume 81 [ foz_us] 80-99 Automated erythrocyte mean corpuscular h emoglobin (mass per erythrocyte) 27 pg 25-34 Automated erythrocyte mean corpuscular h emoglobin concentration measurement (mass/volume) 33 g/dL 32-36 Automated erythrocyte distribution width ratio 22. 1 % 10.0- 14.5 Automated blood platelet count (count/volume) 210 10*3/uL 130-400 Automated blood platelet mean volume measurement 9.6 [foz_us] 7.4-10.4 Automated blood neutrophils/100 leukocytes 47 % 42-75 Automated blood lymphocytes/100 leukocytes 33 % 12-44 Blood monocytes/100 leukocytes 15 % 0-12 Automated blood eosinophils/100 leukocytes 5 % 0-10 Automated blood basophils/100 leukocytes 1 % 0-10 Blood neutrophils automated count (number/volume) 3.6 10*3 1.8-7.8 Blood lymphocytes automated count (number/volume) 2.5 10*3 1.0-4.0 Blood monocytes automated count (number/volume) 1. 1 10*3 0.0-1.0 Automated eosinophil count 0.4 10*3/uL 0 .0-0.3 Automated blood basophil count (count/volume) 0.1 10*3/uL 0.0-0.1 Comprehensive metabolic panel - 11/02/17 09:40 Serum or plasma sodium measurement (moles/volume) 139 mmol/L 135-145 Serum or plasma potassium measurement (moles/volume) 4.3 mmol/L 3.6-5.0 Serum or plasma chloride measurement (moles/volume) 106 mmol/L 98-107 Carbon dioxide 23 mmol/L 21-32 Serum or plasma anion gap determination (moles/volume) 10 mmol/L 5-14 Serum or plasma urea nitrogen measurement (mass/volume ) 10 mg/dL 7-18 Serum or plasma creatinine measurement (mass/volume) 0.93 mg/dL 0.60-1.30 Serum or plasma urea nitrogen/creatinine mass ratio 11 NRG Serum or plasma creatinine measurement w ith calculation of estimated glomerular filtration rate > NRG Serum or plasma glucose measurement (mass/volume) 106 mg/dL 70-105 Serum or plasma calcium measurement (mass/volume) 9.2 mg/dL 8.5-10.1 Serum or plasma total bilirubin measurement (mass/volu me) 0.4 mg/dL 0.1-1.0 Serum or plasma alkaline phosphatase jakob surement (enzymatic activity/volume) 93 U/L 40-136 Serum or plasma aspartate aminotransfera se measurement (enzymatic activity/volume) 28 U/L 5-34 Serum or plasma alanine aminotransferase measurement (enzymatic activity/volume) 25 U/L 0-55 Serum or plasma protein measurement (mass/volume) 7.0 g/dL 6.4-8.2 Serum or plasma albumin measurement (mass/volume) 4.0 g/dL 3.2-4.5 Magnesium - 11/02/17 09:40 Magnesium 1.7 mg/dL 1.8-2.4 Magnesium - 12/28/17 09:25 Magnesium 1.7 mg/dL 1.8-2.4 Arterial blood gas measurement - 8 12:17 Blood pCO2 51 mm[Hg] 35-45 Blood pO2 137 mm[Hg] 79-93 Arterial blood bicarbonate measurement (moles/volume) 22 mmol/L 23-27 Arterial blood base excess by calculation -4.3 mmo l/L -2.5-2.5 Arterial blood oxygen saturation measurement 99 % 94-100 * Inhaled oxygen flow rate 40% NRG Arterial blood pH measurement with patient temperature correction 7.25 7.37-7.43 Arterial blood carbon dioxide, total measurement (mole s/volume) 23.7 mmol/L 21.0-31.0 Body site RT RAD NRG Assessment of wrist artery patency prior to arterial p uncture YES-POS NRG Setting of ventilation mode NO NR G Measurement of body temperature 96.4 NRG Serum or plasma troponin i.cardiac measu rement (mass/volume) - 12/28/17 12:25 Serum or plasma troponin i.cardiac measurement (mass/v olume) < ng/mL <0.30 Serum or plasma troponin i.cardiac measu rement (mass/volume) - 12/28/17 14:03 Serum or plasma troponin i.cardiac measurement (mass/v olume) < ng/mL <0.30 Myoglobin, serum - 12/28/17 14:03 Myoglobin, serum 36.3 ng/mL 10.0-92.0 Complete blood count (CBC) with automate d white blood cell (WBC) differential - 03/15/18 10:00 Blood leukocytes automated count (number/volume) 6.3 10*3/uL 4.3-11.0 Blood erythrocytes automated count (number/volume) 4.71 10*6/uL 4.35-5.85 Venous blood hemoglobin measurement (mass/volume) 12.4 g/dL 13.3-17.7 Blood hematocrit (volume fraction) 38 % 40-54 Automated erythrocyte mean corpuscular volume 82 [ foz_us] 80-99 Automated erythrocyte mean corpuscular h emoglobin (mass per erythrocyte) 26 pg 25-34 Automated erythrocyte mean corpuscular h emoglobin concentration measurement (mass/volume) 32 g/dL 32-36 Automated erythrocyte distribution width ratio 22. 0 % 10.0- 14.5 Automated blood platelet count (count/volume) 239 10*3/uL 130-400 Automated blood platelet mean volume measurement 9.3 [foz_us] 7.4-10.4 Automated blood neutrophils/100 leukocytes 31 % 42-75 Automated blood lymphocytes/100 leukocytes 53 % 12-44 Blood monocytes/100 leukocytes 11 % 0-12 Automated blood eosinophils/100 leukocytes 4 % 0-10 Automated blood basophils/100 leukocytes 1 % 0-10 Blood neutrophils automated count (number/volume) 2.0 10*3 1.8-7.8 Blood lymphocytes automated count (number/volume) 3.3 10*3 1.0-4.0 Blood monocytes automated count (number/volume) 0. 7 10*3 0.0-1.0 Automated eosinophil count 0.3 10*3/uL 0 .0-0.3 Automated blood basophil count (count/volume) 0.0 10*3/uL 0.0-0.1 Whole blood basic metabolic panel - 07/25 10:00 Serum or plasma sodium measurement (moles/volume) 138 mmol/L 135-145 Serum or plasma potassium measurement (moles/volume) 4.3 mmol/L 3.6-5.0 Serum or plasma chloride measurement (moles/volume) 103 mmol/L 98-107 Carbon dioxide 27 mmol/L 21-32 Serum or plasma anion gap determination (moles/volume) 8 mmol/L 5-14 Serum or plasma urea nitrogen measurement (mass/volume ) 16 mg/dL 7-18 Serum or plasma creatinine measurement (mass/volume) 0.97 mg/dL 0.60-1.30 Serum or plasma urea nitrogen/creatinine mass ratio 16 NRG Serum or plasma creatinine measurement w ith calculation of estimated glomerular filtration rate > NRG Serum or plasma glucose measurement (mass/volume) 115 mg/dL 70-105 Serum or plasma calcium measurement (mass/volume) 9.2 mg/dL 8.5-10.1 Complete blood count (CBC) with automate d white blood cell (WBC) differential - 05/16/19 10:33 Blood leukocytes automated count (number/volume) 7.7 10*3/uL 4.3-11.0 Blood erythrocytes automated count (number/volume) 4.78 10*6/uL 4.35-5.85 Venous blood hemoglobin measurement (mass/volume) 13.4 g/dL 13.3-17.7 Blood hematocrit (volume fraction) 43 % 40-54 Automated erythrocyte mean corpuscular volume 89 [ foz_us] 80-99 Automated erythrocyte mean corpuscular h emoglobin (mass per erythrocyte) 28 pg 25-34 Automated erythrocyte mean corpuscular h emoglobin concentration measurement (mass/volume) 32 g/dL 32-36 Automated erythrocyte distribution width ratio 18. 2 % 10.0- 14.5 Automated blood platelet count (count/volume) 195 10*3/uL 130-400 Automated blood platelet mean volume measurement 9.8 [foz_us] 7.4-10.4 Automated blood neutrophils/100 leukocytes 54 % 42-75 Automated blood lymphocytes/100 leukocytes 31 % 12-44 Blood monocytes/100 leukocytes 12 % 0-12 Automated blood eosinophils/100 leukocytes 4 % 0-10 Automated blood basophils/100 leukocytes 0 % 0-10 Blood neutrophils automated count (number/volume) 4.2 10*3 1.8-7.8 Blood lymphocytes automated count (number/volume) 2.4 10*3 1.0-4.0 Blood monocytes automated count (number/volume) 0. 9 10*3 0.0-1.0 Automated eosinophil count 0.3 10*3/uL 0 .0-0.3 Automated blood basophil count (count/volume) 0.0 10*3/uL 0.0-0.1 Comprehensive metabolic panel - 05/16/19 10:33 Serum or plasma sodium measurement (moles/volume) 138 mmol/L 135-145 Serum or plasma potassium measurement (moles/volume) 4.3 mmol/L 3.6-5.0 Serum or plasma chloride measurement (moles/volume) 104 mmol/L 98-107 Carbon dioxide 25 mmol/L 21-32 Serum or plasma anion gap determination (moles/volume) 9 mmol/L 5-14 Serum or plasma urea nitrogen measurement (mass/volume ) 7 mg/dL 7-18 Serum or plasma creatinine measurement (mass/volume) 0.93 mg/dL 0.60-1.30 Serum or plasma urea nitrogen/creatinine mass ratio 8 NRG Serum or plasma creatinine measurement w ith calculation of estimated glomerular filtration rate > NRG Serum or plasma glucose measurement (mass/volume) 101 mg/dL 70-105 Serum or plasma calcium measurement (mass/volume) 9.2 mg/dL 8.5-10.1 Serum or plasma total bilirubin measurement (mass/volu me) 0.5 mg/dL 0.1-1.0 Serum or plasma alkaline phosphatase jakob surement (enzymatic activity/volume) 88 U/L 40-136 Serum or plasma aspartate aminotransfera se measurement (enzymatic activity/volume) 17 U/L 5-34 Serum or plasma alanine aminotransferase measurement (enzymatic activity/volume) 17 U/L 0-55 Serum or plasma protein measurement (mass/volume) 6.6 g/dL 6.4-8.2 Serum or plasma albumin measurement (mass/volume) 3.8 g/dL 3.2-4.5 CALCIUM CORRECTED 9.4 mg/dL 8.5-10.1 Magnesium - 05/16/19 10:33 Magnesium 1.8 mg/dL 1.8-2.4 Serum ragweed IgE antibody assay - 05/16 10:33 [id number] 5.4 % 0.0-5.0 Urine protein/creatinine mass ratio - 10:40 Urine protein measurement (mass/volume) 16 mg/dL 6-12 Urine creatinine measurement (mass/volume) 114 mg/ dL 30-125 Urine protein/creatinine mass ratio 0.14 NRG Complete blood count (CBC) with automate d white blood cell (WBC) differential - 05/30/19 09:30 Blood leukocytes automated count (number/volume) 6.2 10*3/uL 4.3-11.0 Blood erythrocytes automated count (number/volume) 4.42 10*6/uL 4.35-5.85 Venous blood hemoglobin measurement (mass/volume) 12.3 g/dL 13.3-17.7 Blood hematocrit (volume fraction) 39 % 40-54 Automated erythrocyte mean corpuscular volume 89 [ foz_us] 80-99 Automated erythrocyte mean corpuscular h emoglobin (mass per erythrocyte) 28 pg 25-34 Automated erythrocyte mean corpuscular h emoglobin concentration measurement (mass/volume) 31 g/dL 32-36 Automated erythrocyte distribution width ratio 18. 6 % 10.0- 14.5 Automated blood platelet count (count/volume) 189 10*3/uL 130-400 Automated blood platelet mean volume measurement 9.3 [foz_us] 7.4-10.4 Automated blood neutrophils/100 leukocytes 48 % 42-75 Automated blood lymphocytes/100 leukocytes 33 % 12-44 Blood monocytes/100 leukocytes 14 % 0-12 Automated blood eosinophils/100 leukocytes 6 % 0-10 Automated blood basophils/100 leukocytes 1 % 0-10 Blood neutrophils automated count (number/volume) 3.0 10*3 1.8-7.8 Blood lymphocytes automated count (number/volume) 2.0 10*3 1.0-4.0 Blood monocytes automated count (number/volume) 0. 8 10*3 0.0-1.0 Automated eosinophil count 0.4 10*3/uL 0 .0-0.3 Automated blood basophil count (count/volume) 0.0 10*3/uL 0.0-0.1 Whole blood basic metabolic panel - 05/08 02/23 09:30 Serum or plasma sodium measurement (moles/volume) 139 mmol/L 135-145 Serum or plasma potassium measurement (moles/volume) 4.3 mmol/L 3.6-5.0 Serum or plasma chloride measurement (moles/volume) 104 mmol/L 98-107 Carbon dioxide 25 mmol/L 21-32 Serum or plasma anion gap determination (moles/volume) 10 mmol/L 5-14 Serum or plasma urea nitrogen measurement (mass/volume ) 9 mg/dL 7-18 Serum or plasma creatinine measurement (mass/volume) 0.90 mg/dL 0.60-1.30 Serum or plasma urea nitrogen/creatinine mass ratio 10 NRG Serum or plasma creatinine measurement w ith calculation of estimated glomerular filtration rate > NRG Serum or plasma glucose measurement (mass/volume) 126 mg/dL 70-105 Serum or plasma calcium measurement (mass/volume) 9.1 mg/dL 8.5-10.1 Bacterial blood culture - 07/04/19 10:45 Bacterial blood culture NG NRG Bacterial blood culture - 07/04/19 11:35 Bacterial blood culture NG NRG Complete blood count (CBC) with automate d white blood cell (WBC) differential - 07/25/19 09:34 Blood leukocytes automated count (number/volume) 7.1 10*3/uL 4.3-11.0 Blood erythrocytes automated count (number/volume) 4.79 10*6/uL 4.35-5.85 Venous blood hemoglobin measurement (mass/volume) 13.0 g/dL 13.3-17.7 Blood hematocrit (volume fraction) 42 % 40-54 Automated erythrocyte mean corpuscular volume 87 [ foz_us] 80-99 Automated erythrocyte mean corpuscular h emoglobin (mass per erythrocyte) 27 pg 25-34 Automated erythrocyte mean corpuscular h emoglobin concentration measurement (mass/volume) 31 g/dL 32-36 Automated erythrocyte distribution width ratio 20. 6 % 10.0- 14.5 Automated blood platelet count (count/volume) 282 10*3/uL 130-400 Automated blood platelet mean volume measurement 9.3 [foz_us] 7.4-10.4 Automated blood neutrophils/100 leukocytes 45 % 42-75 Automated blood lymphocytes/100 leukocytes 37 % 12-44 Blood monocytes/100 leukocytes 14 % 0-12 Automated blood eosinophils/100 leukocytes 4 % 0-10 Automated blood basophils/100 leukocytes 1 % 0-10 Blood neutrophils automated count (number/volume) 3.2 10*3 1.8-7.8 Blood lymphocytes automated count (number/volume) 2.6 10*3 1.0-4.0 Blood monocytes automated count (number/volume) 1. 0 10*3 0.0-1.0 Automated eosinophil count 0.3 10*3/uL 0 .0-0.3 Automated blood basophil count (count/volume) 0.1 10*3/uL 0.0-0.1 Comprehensive metabolic panel - 08/22/19 10:40 Serum or plasma sodium measurement (moles/volume) 137 mmol/L 135-145 Serum or plasma potassium measurement (moles/volume) 4.5 mmol/L 3.6-5.0 Serum or plasma chloride measurement (moles/volume) 105 mmol/L 98-107 Carbon dioxide 23 mmol/L 21-32 Serum or plasma anion gap determination (moles/volume) 9 mmol/L 5-14 Serum or plasma urea nitrogen measurement (mass/volume ) 16 mg/dL 7-18 Serum or plasma creatinine measurement (mass/volume) 1.13 mg/dL 0.60-1.30 Serum or plasma urea nitrogen/creatinine mass ratio 14 NRG Serum or plasma creatinine measurement w ith calculation of estimated glomerular filtration rate > NRG Serum or plasma glucose measurement (mass/volume) 102 mg/dL 70-105 Serum or plasma calcium measurement (mass/volume) 8.5 mg/dL 8.5-10.1 Serum or plasma total bilirubin measurement (mass/volu me) 0.3 mg/dL 0.1-1.0 Serum or plasma alkaline phosphatase jakob surement (enzymatic activity/volume) 81 U/L 40-136 Serum or plasma aspartate aminotransfera se measurement (enzymatic activity/volume) 25 U/L 5-34 Serum or plasma alanine aminotransferase measurement (enzymatic activity/volume) 26 U/L 0-55 Serum or plasma protein measurement (mass/volume) 6.9 g/dL 6.4-8.2 Serum or plasma albumin measurement (mass/volume) 3.7 g/dL 3.2-4.5 CALCIUM CORRECTED 8.7 mg/dL 8.5-10.1 Complete blood count (CBC) with automate d white blood cell (WBC) differential - 08/22/19 10:40 Blood leukocytes automated count (number/volume) 6.7 10*3/uL 4.3-11.0 Blood erythrocytes automated count (number/volume) 4.55 10*6/uL 4.35-5.85 Venous blood hemoglobin measurement (mass/volume) 12.5 g/dL 13.3-17.7 Blood hematocrit (volume fraction) 40 % 40-54 Automated erythrocyte mean corpuscular volume 88 [ foz_us] 80-99 Automated erythrocyte mean corpuscular h emoglobin (mass per erythrocyte) 27 pg 25-34 Automated erythrocyte mean corpuscular h emoglobin concentration measurement (mass/volume) 31 g/dL 32-36 Automated erythrocyte distribution width ratio 19. 8 % 10.0- 14.5 Automated blood platelet count (count/volume) 254 10*3/uL 130-400 Automated blood platelet mean volume measurement 9.1 [foz_us] 7.4-10.4 Automated blood neutrophils/100 leukocytes 46 % 42-75 Automated blood lymphocytes/100 leukocytes 40 % 12-44 Blood monocytes/100 leukocytes 11 % 0-12 Automated blood eosinophils/100 leukocytes 3 % 0-10 Automated blood basophils/100 leukocytes 1 % 0-10 Blood neutrophils automated count (number/volume) 3.0 10*3 1.8-7.8 Blood lymphocytes automated count (number/volume) 2.7 10*3 1.0-4.0 Blood monocytes automated count (number/volume) 0. 7 10*3 0.0-1.0 Automated eosinophil count 0.2 10*3/uL 0 .0-0.3 Automated blood basophil count (count/volume) 0.0 10*3/uL 0.0-0.1 Complete blood count (CBC) with automate d white blood cell (WBC) differential - 10/29/19 11:39 Blood leukocytes automated count (number/volume) 7.3 10*3/uL 4.3-11.0 Blood erythrocytes automated count (number/volume) 4.78 10*6/uL 4.35-5.85 Venous blood hemoglobin measurement (mass/volume) 13.1 g/dL 13.3-17.7 Blood hematocrit (volume fraction) 41 % 40-54 Automated erythrocyte mean corpuscular volume 86 [ foz_us] 80-99 Automated erythrocyte mean corpuscular h emoglobin (mass per erythrocyte) 27 pg 25-34 Automated erythrocyte mean corpuscular h emoglobin concentration measurement (mass/volume) 32 g/dL 32-36 Automated erythrocyte distribution width ratio 18. 2 % 10.0- 14.5 Automated blood platelet count (count/volume) 340 10*3/uL 130-400 Automated blood platelet mean volume measurement 8.8 [foz_us] 7.4-10.4 Automated blood neutrophils/100 leukocytes 64 % 42-75 Automated blood lymphocytes/100 leukocytes 18 % 12-44 Blood monocytes/100 leukocytes 11 % 0-12 Automated blood eosinophils/100 leukocytes 7 % 0-10 Automated blood basophils/100 leukocytes 0 % 0-10 Blood neutrophils automated count (number/volume) 4.7 10*3 1.8-7.8 Blood lymphocytes automated count (number/volume) 1.3 10*3 1.0-4.0 Blood monocytes automated count (number/volume) 0. 8 10*3 0.0-1.0 Automated eosinophil count 0.5 10*3/uL 0 .0-0.3 Automated blood basophil count (count/volume) 0.0 10*3/uL 0.0-0.1 Comprehensive metabolic panel - 10/29/19 11:39 Serum or plasma sodium measurement (moles/volume) 138 mmol/L 135-145 Serum or plasma potassium measurement (moles/volume) 4.3 mmol/L 3.6-5.0 Serum or plasma chloride measurement (moles/volume) 104 mmol/L 98-107 Carbon dioxide 25 mmol/L 21-32 Serum or plasma anion gap determination (moles/volume) 9 mmol/L 5-14 Serum or plasma urea nitrogen measurement (mass/volume ) 10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
--- NOTE | 2020-03-19 19:59 | ED General ---
General Stated Complaint: ALL OVER PAIN,FATIGUE,DECREASE APPETITE Source of Information: Patient Exam Limitations: No Limitations History of Present Illness Date Seen by Provider: March 19, 2020 Time Seen by Provider: 19:56 Initial Comments To ER with general fatigue, pain all over, decreased appetite. Symptoms present for about 3 days. He denies fevers chills or cough or any specific pain in one location. He is on a clinical trial of oral chemotherapy (regorafenib) through [facility] in [place]. 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 He called his oncologist at [facility] who advised he come to the emergency room to be evaluated. He also reports some bluish colored lips intermittently. He denies shortness of breath. Timing/Duration: 2-3 Days Severity: Moderate Allergies and Home Medications Allergies Coded Allergies: oxaliplatin (Verified Allergy, Severe, 12/28/17) Home Medications Amlodipine Besylate 10 Mg Tablet, 10 MG PO DAILY, (Reported) Baclofen 10 Mg Tablet, 10 MG PO TID PRN for MUSCLE SPASMS, (Reported) Carvedilol 3.125 Mg Tablet, 3.125 MG PO BID WITH MEALS, (Reported) Furosemide 20 Mg Tablet, 20 MG PO DAILY PRN for feet swelling, (Reported) Lisinopril 10 Mg Tablet, 10 MG PO DAILY@0900 Prescribed by: J CARLOS ARANDA on 06/14/17 1041 Oxycodone HCl/Acetaminophen 1 Each Tablet, 2 TAB PO Q6H PRN for PAIN-SEVERE, (Reported) Prednisone 20 Mg Tab, 40 MG PO DAILY Prescribed by: RISA ARAMBULA on 12/28/17 1458 [Vitamin B17] , 1 TAB PO DAILY, (Reported) Patient Home Medication List Home Medication List Reviewed: Yes Review of Systems Review of Systems Constitutional: see HPI, malaise, weakness EENTM: see HPI Respiratory: no symptoms reported Cardiovascular: no symptoms reported Genitourinary: no symptoms reported Musculoskeletal: see HPI, muscle pain Skin: no symptoms reported Psychiatric/Neurological: No Symptoms Reported Hematologic/Lymphatic: No Symptoms Reported Immunological/Allergic: no symptoms reported Past Zvxcrhe-Hpllzv-Komkkt Hx Patient Social History Alcohol Beverage of Choice: Beer Type Used: Cigarettes Former Smoker, Quit: March 28, 2017 Recent Foreign Travel: No Contact w/Someone Who Travel: No Recent Hopitalizations: No Immunizations Up To Date Tetanus Booster (TDap): Unknown Date of Pneumonia Vaccine: Aug 30, 2015 Seasonal Allergies Seasonal Allergies: Yes Past Medical History Surgeries: Yes (COLONOSCOPY, COLON RESECTION, ligament surgery on leg) Abdominal, Tonsillectomy Respiratory: Yes Currently Using CPAP: No Currently Using BIPAP: No Cardiac: Yes Hypertension Neurological: No Reproductive Disorders: No Sexually Transmitted Disease: No HIV/AIDS: No Genitourinary: No Gastrointestinal: Yes (CECAL MASS, RLQ PAIN) Hemorrhoids Musculoskeletal: Yes Arthritis, Back Injury Endocrine: No HEENT: Yes (GLASSES) Loss of Vision: Bilateral Hearing Impairment: Denies Cancer: Yes Colon What Type of Treatment Did You: Chemotherapy, Surgical Intervention Psychosocial: No Integumentary: No Blood Disorders: No Adverse Reaction/Blood Tranf: No Family Medical History Patient reports no known family medical history. Heart Disease, Hypertension Physical Exam Vital Signs Capillary Refill : Height, Weight, BMI Height: 5'5.00" Weight: 236lbs. 0.0oz. 107.308481ue; 39.3 BMI Method:Estimated General Appearance: No Apparent Distress, WD/WN, Other (no distress, alert and oriented, oxygen saturation 100% on his earlobe. Heart rate 106, blood pressure 121/84. He states he has not been eating much but has been drinking pretty well.) Eyes: Bilateral Eye Normal Inspection, Bilateral Eye PERRL, Bilateral Eye EOMI HEENT: PERRL/EOMI Neck: Full Range of Motion, Normal Inspection Respiratory: Lungs Clear, Normal Breath Sounds, No Accessory Muscle Use, No Respiratory Distress Cardiovascular: Regular Rate, Rhythm, Normal Peripheral Pulses Gastrointestinal: Normal Bowel Sounds, Non Tender, Soft Neurologic/Psychiatric: Alert, Oriented x3 Skin: Normal Color, Warm/Dry Procedures/Interventions Date of ETT Placement: May 16, 2017 Time of ETT Placement: 1729 Progress/Results/Core Measures Suspected Sepsis SIRS Temperature: Pulse: Respiratory Rate: Laboratory Tests 03/19/20 19:51: White Blood Count 4.1L Blood Pressure / Mean: Laboratory Tests 03/19/20 19:51: Creatinine 1.29, INR Comment 1.1, Platelet Count 157, Total Bilirubin 0.7 Results/Orders Lab Results Laboratory Tests Test 03/19/20 19:51 03/19/20 20:44 Range/Units White Blood Count 4.1 L 4.3-11.0 10^3/uL Red Blood Count 5.34 4.35-5.85 10^6/uL Hemoglobin 14.2 13.3-17.7 G/DL Hematocrit 43 40-54 % Mean Corpuscular Volume 80 80-99 FL Mean Corpuscular Hemoglobin 27 25-34 PG Mean Corpuscular Hemoglobin Concent 33 32-36 G/DL Red Cell Distribution Width 18.6 H 10.0-14.5 % Platelet Count 157 130-400 10^3/uL Mean Platelet Volume 8.5 7.4-10.4 FL Neutrophils (%) (Auto) 47 42-75 % Lymphocytes (%) (Auto) 35 12-44 % Monocytes (%) (Auto) 15 H 0-12 % Eosinophils (%) (Auto) 3 0-10 % Basophils (%) (Auto) 1 0-10 % Neutrophils # (Auto) 1.9 1.8-7.8 X 10^3 Lymphocytes # (Auto) 1.4 1.0-4.0 X 10^3 Monocytes # (Auto) 0.6 0.0-1.0 X 10^3 Eosinophils # (Auto) 0.1 0.0-0.3 10^3/uL Basophils # (Auto) 0.0 0.0-0.1 10^3/uL Prothrombin Time 14.8 H 12.2-14.7 SEC INR Comment 1.1 0.8-1.4 Sodium Level 133 L 135-145 MMOL/L Potassium Level 4.4 3.6-5.0 MMOL/L Chloride Level 98 98-107 MMOL/L Carbon Dioxide Level 28 21-32 MMOL/L Anion Gap 7 5-14 MMOL/L Blood Urea Nitrogen 14 7-18 MG/DL Creatinine 1.29 0.60-1.30 MG/DL Estimat Glomerular Filtration Rate 57 BUN/Creatinine Ratio 11 Glucose Level 97 70-105 MG/DL Calcium Level 8.6 8.5-10.1 MG/DL Corrected Calcium 8.7 8.5-10.1 MG/DL Total Bilirubin 0.7 0.1-1.0 MG/DL Aspartate Amino Transf (AST/SGOT) 32 5-34 U/L Alanine Aminotransferase (ALT/SGPT) 17 0-55 U/L Alkaline Phosphatase 79 40-136 U/L Total Protein 7.8 6.4-8.2 GM/DL Albumin 3.9 3.2-4.5 GM/DL My Orders Orders - BAKARI GOODSON APRN Cbc With Automated Diff (03/19/20 19:49) Comprehensive Metabolic Panel (03/19/20:49) Ua Culture If Indicated (03/19/20 19:49) Protime With Inr (03/19/20 19:49) Chest 1 View, Ap/Pa Only (03/19/20:49) Ed Iv/Invasive Line Start (03/19/20 19:49) Ct Angio Chest W (03/19/20 21:02) Iohexol Injection (Omnipaque 350 Mg/Ml 1 (03/19/20 21:15) Contrast Received (Contrast Received) (03/19/20:15) Ns (Ivpb) (Sodium Chloride 0.9% Ivpb Bag (03/19/20:15) Vital Signs/I&O Capillary Refill : Departure Communication (Admissions) 3887-he is a little tachycardic at about 105. We did SPO2 monitor while walking for 6 minutes, oxygen never dropped below 97%. However heart rate did increase to about 125. Given his concern for intermittent hypoxia and advanced cancer I'll do a CT Angio chest to evaluate for pulmonary embolus. Barring significant findings on that, he'll be discharged. Impression Primary Impression: Metastatic colon cancer to liver Disposition: 01 HOME, SELF-CARE Condition: Stable Departure-Patient Inst. Decision time for Depature: 21:07 Referrals: NO,LOCAL PHYSICIAN (PCP/Family) Primary Care Physician Patient Instructions: Colon and Rectal Cancer BAKARI GOODSON APRN March 19, 2020 19:59
[2020-03-19 20:02] LABS: BASOPHILS % (AUTO) 1 % (0-10); EOSINOPHILS # (AUTO) 0.1 10^3/uL (0.0-0.3); EOSINOPHILS % (AUTO) 3 % (0-10); HEMATOCRIT 43 % (40-54); HEMOGLOBIN 14.2 G/DL (13.3-17.7); LYMPHOCYTES # (AUTO) 1.4 X 10^3 (1.0-4.0); LYMPHOCYTES % (AUTO) 35 % (12-44); MEAN CORPUSCULAR HEMOGLOBIN 27 PG (25-34); MEAN CORPUSCULAR HGB CONC 33 G/DL (32-36); MEAN CORPUSCULAR VOLUME 80 FL (80-99); MEAN PLATELET VOLUME 8.5 FL (7.4-10.4); MONOCYTES # (AUTO) 0.6 X 10^3 (0.0-1.0); MONOCYTES % (AUTO) 15 % (0-12); NEUTROPHILS # (AUTO) 1.9 X 10^3 (1.8-7.8); NEUTROPHILS % (AUTO) 47 % (42-75); PLATELET COUNT 157 10^3/uL (130-400); RED CELL DISTRIBUTION WIDTH 18.6 % (10.0-14.5); WHITE BLOOD COUNT 4.1 10^3/uL (4.3-11.0)
[2020-03-19 20:11] LABS: ALBUMIN 3.9 GM/DL (3.2-4.5); INR 1.1 (0.8-1.4); POTASSIUM 4.4 MMOL/L (3.6-5.0); PROTHROMBIN TIME PATIENT 14.8 SEC (12.2-14.7)
[2020-03-19 20:12] LABS: CALCIUM 8.6 MG/DL (8.5-10.1)
[2020-03-19 20:14] LABS: TOTAL PROTEIN 7.8 GM/DL (6.4-8.2)
[2020-03-19 20:15] LABS: BILIRUBIN,TOTAL 0.7 MG/DL (0.1-1.0)
[2020-03-19 20:17] LABS: CREATININE SERUM 1.29 MG/DL (0.60-1.30)
[2020-03-19 20:51] LABS: BILIRUBIN,URINE NEGATIVE (NEGATIVE); CLARITY,URINE CLEAR; COLOR,URINE YELLOW; GLUCOSE, URINE (UA) NEGATIVE (NEGATIVE); KETONES,URINE NEGATIVE (NEGATIVE); LEUKOCYTE ESTERASE ,URINE NEGATIVE (NEGATIVE); NITRITE,URINE NEGATIVE (NEGATIVE); PH,URINE 5.5 (5-9); PROTEIN,URINE NEGATIVE (NEGATIVE)
--- NOTE | 2020-03-19 20:54 | Diagnostic Imaging Report ---
EXAM: Chest 1 view, AP/PA only. INDICATION: Fatigue. Anorexia. Generalized pain. COMPARISON: CT chest 06/05/2019. FINDINGS: Normal heart size and central pulmonary vascularity. No focal pulmonary opacity, pleural effusion or pneumothorax. Postoperative changes in the lower thoracic spine and right proximal humerus. Right IJ CVC tip low SVC. Chronic right rib fractures. IMPRESSION: No acute cardiopulmonary finding. Dictated by: Dictated on workstation # [id number]
[2020-03-19 21:14] LABS: BACTERIA,URINE TRACE /HPF; RBC,URINE 0-2 /HPF; WBC,URINE RARE /HPF
[2020-03-19 21:15] LABS: HYALINE CASTS, URINE 0-2 /LPF
[2020-03-19] MEDS ORDERED: IOHEXOL 350 MG/ML 100 ML (OMNIPAQUE 350) VIAL IV ONE (21:15)
[2020-03-19] MEDS ORDERED: NS 100 ML (IVPB) BAG IV ONE (21:15)
[2020-03-19] MEDS ORDERED: HOLD METFORMIN - RECEIVED CONTRAST 20 ML VIAL IV SCH (21:15)
--- NOTE | 2020-03-19 21:55 | Diagnostic Imaging Report ---
PROCEDURE: CT angiography of the chest with contrast. TECHNIQUE: Multiple contiguous axial images were obtained through the chest after uneventful bolus administration of intravenous contrast. 3D reconstructed CTA MIP acquisitions were also performed. Auto Exposure Controls were utilized during the CT exam to meet ALARA standards for radiation dose reduction. INDICATION: Generalized pain and fatigue. History of lung cancer. Colon cancer with liver metastases. COMPARISON: CT chest, abdomen and pelvis 06/05/2019. FINDINGS: Examination is limited by motion. No large or central pulmonary emboli. No thoracic aortic aneurysm or dissection. Normal heart size. No pericardial effusion. Diffusely prominent mediastinal lymph nodes are stable and remain subcentimeter in short axis dimension compared to the prior exam. There is a new 2.4 x 4.0 cm mass in the right axilla. Tiny right pleural effusion is also new. Right IJ CVC is obscured by contrast. No new suspicious pulmonary nodule or mass. No pneumothorax. Indeterminate filling defect in the right mainstem bronchus measuring approximately 0.9 x 0.3 cm. Multiple chronic bilateral rib fractures. Stable bilateral cheng and pedicle screw fixation at T9-T12. Cholelithiasis. Mild gallbladder wall thickening is new. Hypoattenuating mass in the right hepatic lobe measures 4.2 x 3.9 cm, previously 3.6 x 3.8 cm when measured in a similar fashion. Partially visualized IVC filter. Partially visualized postoperative changes in the right humerus. IMPRESSION: 1. No large or central pulmonary emboli identified. Exam is limited by motion. 2. New soft tissue mass measuring up to 4.0 cm in the right axilla suspicious for lymphadenopathy. 3. New tiny right pleural effusion. 4. No gallbladder wall thickening. Cholelithiasis. This could be better evaluated with dedicated ultrasound. 5. Mass in the right hepatic lobe is stable to mildly increased in size allowing for differences in technique. 6. Dependent filling defect in the right mainstem bronchus may represent secretions but is indeterminate. This should serve as a focus of attention on subsequent follow-up exams. Dictated by: Dictated on workstation # [id number]
[2020-03-19 22:00] VITALS: BP 132/86
== END 2020-03-19 22:00 | disposition home or self-care (01) ==
LOC: EDUNIT# 18:40 → ER 18:43
DX: C18.9 Malignant neoplasm of colon, unspecified (principal); C78.7 Secondary malignant neoplasm of liver and intrahepatic bile duct; I10 Essential (primary) hypertension; Z82.49 Family history of ischemic heart disease and other diseases of the circulatory system
CPT/HCPCS: 36415; 71045; 71275; 80053; 81000; 85025; 85610; 94760

== ENCOUNTER 2020-05-20 07:26 | Emergency (ER) | payer MEDICARE ==
[~2020-05-20] VITALS: Ht 165.1 cm; Wt 104.5 kg
--- OUTSIDE RECORDS SUMMARY | 2020-05-20 07:39 | XMS REPORT | Continuity of Care Document ---
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 Z79.899 OTHER WAITER/WAITRESS INFORMAL (CURRENT) DRUG THERAPY 11/15/2018 SAMIR VARGAS N Ot Z90.49 ACQUIRED ABSENCE OF OTHER SPECIFIED PART 12/13/2018 ALICIASAMIR PERSAUD N Ot 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 12/13/2018 ALICIA BOBCARLA N Ot 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 OF ASCENDING COLON 12/13/2018 ALICIA, BOBAN N Ot 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 AND UNSP MALIGNANT NEOPLASM OF 12/13/2018 ALICIA BOBAN N Ot C78.7 SECONDARY MALIG NEOPLASM OF LIVER AND IN 12/13/2018 ALICIA BOBAN N Ot E66.01 MORBID (SEVERE) OBESITY DUE TO EXCESS CA 12/13/2018 ALICIA BOBAN N Ot F17.210 NICOTINE DEPENDENCE, CIGARETTES, UNCOMPL 12/13/2018 ALICIAKURTAN N Ot Z51.11 ENCOUNTER FOR ANTINEOPLASTIC CHEMOTHERAP 12/13/2018 SAMIR VARGAS N Ot Z68.41 BODY MASS INDEX (BMI) 40.0-44.9, ADULT 12/13/2018 SAMIR VARGAS N Ot Z79.899 OTHER WAITER/WAITRESS INFORMAL (CURRENT) DRUG THERAPY 12/13/2018 SAMIR VARGAS N Ot Z90.49 ACQUIRED ABSENCE OF OTHER SPECIFIED PART 12/14/2018 SAMIR VARGAS N Ot 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 12/14/2018 SAMIR VARGAS N Ot 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 [...] 12/14/2018 SAMIR VARGAS N Ot Z79.899 OTHER PENITENTIARY (CURRENT) DRUG THERAPY 12/14/2018 SAMIR VARGAS N [...] 12/26/2018 SAMIR VARGAS N Ot Z79.899 OTHER WAITER/WAITRESS INFORMAL (CURRENT) DRUG THERAPY 12/26/2018 SAMIR VARGAS N [...] OF LIVER AND IN 12/29/2018 SAMIR VARGAS Ankur Ot E66.01 MORBID (SEVERE) OBESITY DUE TO EXCESS CA 12/29/2018 SAMIR VARGAS N Ot F17.210 NICOTINE DEPENDENCE, CIGARETTES, UNCOMPL 12/29/2018 SAMIR VARGAS Ankur Ot Z68.41 BODY MASS INDEX (BMI) 40.0-44.9, ADULT 12/29/2018 SAMIR VARGAS N Ot Z79.899 OTHER WAITER/WAITRESS INFORMAL (CURRENT) DRUG THERAPY 12/29/2018 SAMIR VARGAS Ankur Ot Z90.49 ACQUIRED ABSENCE OF OTHER SPECIFIED PART 12/31/2018 SCOTT MCKEE TAX COMPLIANCE REPRESENTATIVE Ot 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 OF ASCENDING COLON 12/31/2018 SCOTT MCKEE TAX COMPLIANCE REPRESENTATIVE Ot 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 AND UNSP MALIGNANT NEOPLASM OF 12/31/2018 SCOTT MCKEE TAX COMPLIANCE REPRESENTATIVE Ot C78.7 SECONDARY MALIG NEOPLASM OF LIVER AND IN 12/31/2018 SCOTT MCKEE TAX COMPLIANCE REPRESENTATIVE Ot Z95.828 PRESENCE OF OTHER VASCULAR IMPLANTS AND 12/31/2018 SCOTT MCKEE TAX COMPLIANCE REPRESENTATIVE Ot Z98.890 OTHER SPECIFIED POSTPROCEDURAL STATES 02/13/2019 SAMIR VARGAS N Ot 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 02/13/2019 SAMIR VARGAS N Ot 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 OF ASCENDING COLON 02/13/2019 SAMIR VARGAS N Ot 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 AND UNSP MALIGNANT NEOPLASM OF 02/13/2019 SAMIR VARGAS N Ot C78.7 SECONDARY MALIG NEOPLASM OF LIVER AND IN 02/13/2019 SAMIR VARGAS Ankur Ot E66.01 MORBID (SEVERE) OBESITY DUE TO EXCESS CA 02/13/2019 SAMIR VARGAS N Ot F17.210 NICOTINE DEPENDENCE, CIGARETTES, UNCOMPL 02/13/2019 SAMIR VARGAS N Ot Z51.11 ENCOUNTER FOR ANTINEOPLASTIC CHEMOTHERAP 02/13/2019 SAMIR VARGAS N Ot Z68.41 BODY MASS INDEX (BMI) 40.0-44.9, ADULT 02/13/2019 SAMIR VARGAS N Ot Z79.899 OTHER WAITER/WAITRESS INFORMAL (CURRENT) DRUG THERAPY 02/13/2019 SAMIR VARGAS N [...] INDEX (BMI) 40.0-44.9, ADULT 02/15/2019 SAMIR VARGAS N Ot Z79.899 OTHER WAITER/WAITRESS INFORMAL (CURRENT) DRUG THERAPY 02/15/2019 SAMIR VARGAS N Ot Z90.49 ACQUIRED ABSENCE [...] 02/20/2019 SAMIR VARGAS N Ot Z79.899 OTHER PENITENTIARY (CURRENT) DRUG THERAPY 02/20/2019 SAMIR VARGAS Ot Z90.49 ACQUIRED ABSENCE OF OTHER SPECIFIED PART 02/21/2019 SAMIR VARGAS Ot 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 02/21/2019 SAMIR VARGAS Ot 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 OF ASCENDING COLON 02/21/2019 SAMIR VARGAS Ot 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 AND UNSP MALIGNANT NEOPLASM OF 02/21/2019 SAMIR VARGSA Ot C78.7 SECONDARY MALIG NEOPLASM OF LIVER AND IN 02/21/2019 SAMIR VARGAS Ot E66.01 MORBID (SEVERE) OBESITY DUE TO EXCESS CA 02/21/2019 SAMIR VARGAS Ankur Ot F17.210 NICOTINE DEPENDENCE, CIGARETTES, UNCOMPL 02/21/2019 SAMIR VARGAS Ankur Ot Z68.41 BODY MASS INDEX (BMI) 40.0-44.9, ADULT 02/21/2019 SAMIR VARGAS Ot Z79.899 OTHER WAITER/WAITRESS INFORMAL (CURRENT) DRUG THERAPY 02/21/2019 SAMIR VARGAS Ot [...] LIVER AND IN 03/15/2019 SCOTT MCKEE S TAX COMPLIANCE REPRESENTATIVE Ot 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 OF ASCENDING COLON 03/15/2019 SCOTT MCKEE TAX COMPLIANCE REPRESENTATIVE Ot 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 AND UNSP MALIGNANT NEOPLASM OF 03/15/2019 SCOTT MCKEE S TAX COMPLIANCE REPRESENTATIVE Ot C78.7 SECONDARY MALIG NEOPLASM OF LIVER AND IN 03/15/2019 SCOTT MCKEE TAX COMPLIANCE REPRESENTATIVE Ot K80.20 CALCULUS OF GALLBLADDER W/O CHOLECYSTITI 03/15/2019 SCOTT MCKEE S TAX COMPLIANCE REPRESENTATIVE Ot R91.8 OTHER NONSPECIFIC ABNORMAL FINDING OF DRE 03/15/2019 SCOTT MCKEEP Ot Z95.828 PRESENCE OF OTHER [...] LIVER AND IN 03/15/2019 SCOTT MCKEE S TAX COMPLIANCE REPRESENTATIVE Ot 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 OF ASCENDING COLON 03/15/2019 SCOTT MCKEE S TAX COMPLIANCE REPRESENTATIVE Ot 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 AND UNSP MALIGNANT NEOPLASM OF 03/15/2019 SCOTT MCKEE S TAX COMPLIANCE REPRESENTATIVE Ot C78.7 SECONDARY MALIG NEOPLASM OF LIVER AND IN 03/15/2019 SCOTT MCKEE TAX COMPLIANCE REPRESENTATIVE Ot Z95.828 PRESENCE OF OTHER VASCULAR IMPLANTS AND 03/15/2019 SCOTT MCKEE TAX COMPLIANCE REPRESENTATIVE Ot Z98.890 OTHER SPECIFIED POSTPROCEDURAL STATES 03/15/2019 SAMIR VARGAS N Ot 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 03/15/2019 SAMIR VARGAS Ankur Ot 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 OF ASCENDING COLON 03/15/2019 SAMIR VARGAS N Ot 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 AND UNSP MALIGNANT NEOPLASM OF 03/15/2019 SAMIR VARGAS N Ot C78.7 SECONDARY MALIG NEOPLASM OF LIVER AND IN 03/15/2019 SAMIR VARGAS N Ot E66.01 MORBID (SEVERE) OBESITY DUE TO EXCESS CA 03/15/2019 SAMIR VARGAS N Ot F17.210 NICOTINE DEPENDENCE, CIGARETTES, UNCOMPL 03/15/2019 SAMIR VARGAS N Ot Z51.11 ENCOUNTER FOR ANTINEOPLASTIC CHEMOTHERAP 03/15/2019 SAMIR VARGAS N Ot Z68.41 BODY MASS INDEX (BMI) 40.0-44.9, ADULT 03/15/2019 SAMIR VARGAS N Ot Z79.899 OTHER WAITER/WAITRESS INFORMAL (CURRENT) DRUG THERAPY 03/15/2019 SAMIR VARGAS N Ot Z90.49 ACQUIRED ABSENCE OF OTHER SPECIFIED PART 03/16/2019 SAMIR VARGAS N Ot 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 OF ASCENDING COLON 03/16/2019 SAMIR VARGAS N Ot 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 AND UNSP MALIGNANT NEOPLASM OF 03/16/2019 SAMIR VARGAS N Ot C78.7 SECONDARY MALIG NEOPLASM OF LIVER AND IN 03/16/2019 SAMIR VARGAS Ankur Ot K76.9 LIVER DISEASE, UNSPECIFIED 03/16/2019 SAMIR VARGAS N Ot Z87.81 PERSONAL HISTORY OF (HEALED) TRAUMATIC F 03/16/2019 SAMIR VARGAS N Ot Z95.828 PRESENCE OF OTHER VASCULAR IMPLANTS AND 03/16/2019 SAMIR VARGAS N Ot Z98.1 ARTHRODESIS STATUS 03/20/2019 SAMIR VARGAS N Ot 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 03/20/2019 ALICIA KURTCALRA N Ot 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 OF ASCENDING COLON 03/20/2019 ALICIA KURTCARLA N Ot 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 AND UNSP MALIGNANT NEOPLASM OF 03/20/2019 SAMIR VARGAS Ankur Ot C78.7 SECONDARY MALIG NEOPLASM OF LIVER AND IN 03/20/2019 SAMIR VARGAS Ankur Ot E66.01 MORBID (SEVERE) OBESITY DUE TO EXCESS CA 03/20/2019 SAMIR VARGAS Ankur Ot F17.210 NICOTINE DEPENDENCE, CIGARETTES, UNCOMPL 03/20/2019 SAMIR VARGAS Ankur Ot Z51.11 ENCOUNTER FOR ANTINEOPLASTIC CHEMOTHERAP 03/20/2019 SAMIR VARGAS N Ot Z68.41 BODY MASS INDEX (BMI) 40.0-44.9, ADULT 03/20/2019 SAMIR VARGAS Ankur Ot Z79.899 OTHER PENITENTIARY (CURRENT) DRUG THERAPY 03/20/2019 SAMIR VAGRAS Ankur Ot Z90.49 ACQUIRED ABSENCE OF OTHER SPECIFIED PART 03/29/2019 SAMIR VARGAS Ankur Ot 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 OF ASCENDING COLON 03/29/2019 SAMIR VARGAS Ankur Ot 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 AND UNSP MALIGNANT NEOPLASM OF 03/29/2019 SAMIR VARGAS Ankur Ot C78.7 SECONDARY MALIG NEOPLASM OF LIVER AND IN 03/29/2019 SAMIR VARGAS Ankur Ot K76.9 LIVER DISEASE, UNSPECIFIED 03/29/2019 SAMIR VARGAS Ankur Ot Z87.81 PERSONAL HISTORY OF (HEALED) TRAUMATIC F 03/29/2019 SAMIR VARGAS Ankur Ot Z95.828 PRESENCE OF OTHER VASCULAR IMPLANTS AND 03/29/2019 SAMIR VARGAS Aknur Ot Z98.1 ARTHRODESIS STATUS 04/23/2019 SAMIR VARGAS Ankur Ot 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 04/23/2019 SAMIR VARGAS Ankur Ot 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 [...] 04/23/2019 SAMIR VARGAS Ankur Ot Z79.899 OTHER PENITENTIARY (CURRENT) DRUG THERAPY 04/23/2019 SAMIR VARGAS Ankur Ot Z90.49 ACQUIRED ABSENCE OF OTHER SPECIFIED PART 05/09/2019 SAMIR VARGAS Ankur Ot 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 OF ASCENDING COLON 05/09/2019 ALICIA SAMIR Pascual Ot 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 AND UNSP MALIGNANT NEOPLASM OF 05/09/2019 SAMIR VARGAS N Ot C78.7 SECONDARY MALIG NEOPLASM OF LIVER AND IN 05/09/2019 SAMIR VARGAS Ankur Ot K76.9 LIVER DISEASE, UNSPECIFIED 05/09/2019 ALICIA KURTCARLA N Ot Z87.81 PERSONAL HISTORY OF (HEALED) TRAUMATIC F 05/09/2019 SAMIR VARGAS Ankur Ot Z95.828 PRESENCE OF [...] Ot F17.210 NICOTINE DEPENDENCE, CIGARETTES, UNCOMPL 05/21/2019 SMAIR VARGAS Ankur Ot Z51.11 ENCOUNTER FOR ANTINEOPLASTIC CHEMOTHERAP 05/21/2019 SAMIR VARGAS Ankur Ot Z68.41 BODY MASS INDEX (BMI) 40.0-44.9, ADULT 05/21/2019 SAMIR VARGAS N Ot Z79.899 OTHER WAITER/WAITRESS INFORMAL (CURRENT) DRUG THERAPY 05/21/2019 SAMIR VARGAS N Ot Z90.49 ACQUIRED ABSENCE OF OTHER SPECIFIED PART 05/22/2019 ALICIA KURTCARLA N Ot 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 05/22/2019 ALICIA SAMIR N Ot 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 OF ASCENDING COLON 05/22/2019 SAMIR VARGAS N Ot 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 AND UNSP MALIGNANT NEOPLASM OF 05/22/2019 SAMIR VARGAS N Ot C78.7 SECONDARY MALIG [...] 05/22/2019 SAMIR VARGAS N Ot Z79.899 OTHER WAITER/WAITRESS INFORMAL (CURRENT) DRUG THERAPY 05/22/2019 SAMIR VARGAS N Ot Z90.49 ACQUIRED ABSENCE OF OTHER SPECIFIED PART 05/27/2019 SAMIR VARGAS N Ot 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 05/27/2019 SAMIR VARGAS N Ot 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 OF ASCENDING COLON 05/27/2019 ALICIASAMIR N Ot 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 AND UNSP MALIGNANT NEOPLASM OF 05/27/2019 SAMIR VARGAS N Ot C78.7 SECONDARY MALIG [...] 05/27/2019 SAMIR VARGAS N Ot Z79.899 OTHER PENITENTIARY (CURRENT) DRUG THERAPY 05/27/2019 ALICIASAMIR N Ot Z90.49 ACQUIRED ABSENCE OF OTHER SPECIFIED PART 05/28/2019 ALICIASAMIR N Ot 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 05/28/2019 ALICIASAMIR N Ot 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 OF ASCENDING COLON 05/28/2019 ALICIA KURTCARLA N Ot 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 AND UNSP MALIGNANT NEOPLASM OF 05/28/2019 SAMIR VARGAS N Ot C78.7 SECONDARY MALIG [...] 05/28/2019 SAMIR VARGAS N Ot Z79.899 OTHER PENITENTIARY (CURRENT) DRUG THERAPY 05/28/2019 SAMIR VARGAS N [...] 05/30/2019 SAMIR VARGAS N Ot Z79.899 OTHER WAITER/WAITRESS INFORMAL (CURRENT) DRUG THERAPY 05/30/2019 SAMIR VARGAS N [...] DUE TO EXCESS CA 06/13/2019 SAMIR VARGAS Ankur Ot F17.210 NICOTINE DEPENDENCE, CIGARETTES, UNCOMPL 06/13/2019 SAMIR VARGAS Ankur Ot Z51.11 ENCOUNTER FOR ANTINEOPLASTIC CHEMOTHERAP 06/13/2019 SAMIR VARGAS Ankur Ot Z68.41 BODY MASS INDEX (BMI) 40.0-44.9, ADULT 06/13/2019 SAMIR VARGAS Ankur Ot Z79.899 OTHER WAITER/WAITRESS INFORMAL (CURRENT) DRUG THERAPY 06/13/2019 SAMIR VARGAS Ankur Ot Z90.49 ACQUIRED ABSENCE OF OTHER SPECIFIED PART 06/21/2019 SAMIR VARGAS Ankur Ot C18.9 MALIGNANT NEOPLASM OF COLON, UNSPECIFIED 06/21/2019 ALICIAKURTCARLA Ankur Ot 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 AND UNSP MALIGNANT NEOPLASM OF 06/21/2019 ALICIA KURTCARLA N Ot C78.7 SECONDARY MALIG NEOPLASM OF LIVER AND IN 06/21/2019 ALICIA, KURTCARLA Ankur Ot K80.20 CALCULUS OF GALLBLADDER W/O CHOLECYSTITI 06/21/2019 SAMIR VARGAS Ankur Ot Z95.828 PRESENCE OF OTHER VASCULAR IMPLANTS AND 06/21/2019 SAMIR VARGAS Ankur Ot Z98.890 OTHER SPECIFIED POSTPROCEDURAL STATES 06/29/2019 SAMIR VARGAS Ankur Ot 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 06/29/2019 ALICIA KURTCARLA Ankur Ot 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 OF ASCENDING COLON 06/29/2019 SAIMR VARGAS Ankur Ot 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 AND UNSP [...] 06/29/2019 SAMIR VARGAS Ankur Ot Z79.899 OTHER WAITER/WAITRESS INFORMAL (CURRENT) DRUG THERAPY 06/29/2019 SAMIR VARGAS N [...] 07/17/2019 SAMIR VARGAS N Ot Z79.899 OTHER PENITENTIARY (CURRENT) DRUG THERAPY 07/17/2019 SAMIR VARGAS N [...] 07/26/2019 SAMIR VARGAS N Ot Z79.899 OTHER WAITER/WAITRESS INFORMAL (CURRENT) DRUG THERAPY 07/26/2019 SAMIR VARGAS N Ot Z90.49 ACQUIRED ABSENCE OF OTHER SPECIFIED PART 08/01/2019 SAMIR VARGAS N Ot C18.9 MALIGNANT NEOPLASM OF COLON, UNSPECIFIED 08/01/2019 SAMIR VARGAS Ankur Ot 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 AND UNSP MALIGNANT NEOPLASM OF 08/01/2019 ALICIA KURTCARLA Ankur Ot C78.7 SECONDARY MALIG NEOPLASM OF LIVER AND IN 08/01/2019 ALICIA KURTCARLA Ankur Ot K80.20 CALCULUS OF GALLBLADDER [...] (SEVERE) OBESITY DUE TO EXCESS CA 08/28/2019 ALICIA SAMIR N Ot F17.210 NICOTINE DEPENDENCE, CIGARETTES, UNCOMPL 08/28/2019 ALICIA SAMIR N Ot Z51.11 ENCOUNTER FOR ANTINEOPLASTIC CHEMOTHERAP 08/28/2019 ALICIA SAMIR Pascual Ot Z68.41 BODY MASS INDEX (BMI) 40.0-44.9, ADULT 08/28/2019 ALICIA SAMIR Pascual Ot Z79.899 OTHER PENITENTIARY (CURRENT) DRUG THERAPY 08/28/2019 ALICIA SAMIR Pascual Ot Z90.49 ACQUIRED ABSENCE OF OTHER SPECIFIED PART 09/14/2019 ALICIA SAMIR Pascual Ot 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 09/14/2019 ALICIA SAMIR Pascual Ot 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 OF ASCENDING COLON 09/14/2019 ALICIASAMIR Ot 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 AND UNSP MALIGNANT NEOPLASM OF 09/14/2019 ALICIA SAMIR Pascual Ot C78.7 SECONDARY MALIG NEOPLASM OF LIVER AND IN 09/14/2019 ALICIASAMIR N Ot E66.01 MORBID (SEVERE) OBESITY DUE TO EXCESS CA 09/14/2019 ALICIASAMIR N Ot F17.210 NICOTINE DEPENDENCE, CIGARETTES, UNCOMPL 09/14/2019 ALICIASAMIR N Ot Z51.11 ENCOUNTER FOR ANTINEOPLASTIC CHEMOTHERAP 09/14/2019 SAMIR VARGAS Ankur Ot Z68.41 BODY MASS INDEX (BMI) 40.0-44.9, ADULT 09/14/2019 SAMIR VARGAS Ankur Ot Z79.899 OTHER WAITER/WAITRESS INFORMAL (CURRENT) DRUG THERAPY 09/14/2019 SAMIR VARGAS Ankur Ot Z90.49 ACQUIRED ABSENCE OF OTHER SPECIFIED PART 10/29/2019 CHARLI YUEN, CHE HORNER S Ot E78.1 PURE HYPERGLYCERIDEMIA 11/02/2019 CHARLI YUEN, CHE HORNER S Ot C18.9 MALIGNANT NEOPLASM OF COLON, UNSPECIFIED 11/05/2019 CHARLI YUEN, CHE HORNER S Ot C18.9 MALIGNANT NEOPLASM OF COLON, UNSPECIFIED 11/06/2019 CHARLI YUEN, CHE HORNER S Ot C18.9 MALIGNANT NEOPLASM OF COLON, UNSPECIFIED 11/06/2019 SAMIR VARGAS N Ot 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 11/06/2019 SAMIR VARGAS Ot 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 OF ASCENDING COLON 11/06/2019 SAMIR VARGAS Ot 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 AND UNSP MALIGNANT NEOPLASM OF 11/06/2019 ALICIASAMIR N Ot C78.7 SECONDARY MALIG NEOPLASM OF LIVER AND IN 11/06/2019 ALICIASAMIR Ot E66.01 MORBID (SEVERE) OBESITY DUE TO EXCESS CA 11/06/2019 ALICIASAMIR Ot F17.210 NICOTINE DEPENDENCE, CIGARETTES, UNCOMPL 11/06/2019 ALICIASAMIR Ot K64.8 OTHER HEMORRHOIDS 11/06/2019 ALICIASAMIR Ot Z51.11 ENCOUNTER FOR ANTINEOPLASTIC CHEMOTHERAP 11/06/2019 ALICIA KURTCARLA Ankur Ot Z68.41 BODY MASS INDEX (BMI) 40.0-44.9, ADULT 11/06/2019 ALICIA SAMIR Pascual Ot Z79.899 OTHER WAITER/WAITRESS INFORMAL (CURRENT) DRUG THERAPY 11/06/2019 ALICIA SAMIR Pascual [...] ADULT 12/04/2019 SAMIR VARGAS Ot Z79.899 OTHER WAITER/WAITRESS INFORMAL (CURRENT) DRUG THERAPY 12/04/2019 SAMIR VARGAS Ot [...] ADULT 12/05/2019 SAMIR VARGAS Ot Z79.899 OTHER PENITENTIARY (CURRENT) DRUG THERAPY 12/05/2019 SAMIR VARGAS Ot Z80.0 FAMILY HISTORY OF MALIGNANT NEOPLASM OF 12/05/2019 SAMIR VARGAS Ot Z90.49 ACQUIRED ABSENCE OF OTHER SPECIFIED PART 03/19/2020 CHRIS YUEN, MONIE R Ot R10. 31 RIGHT LOWER QUADRANT PAIN 03/19/2020 SAMIR VARGAS Ot C18.9 MALIGNANT NEOPLASM OF COLON, UNSPECIFIED 03/19/2020 SAMIR VARGAS Ankur Ot K08.9 DISORDER OF TEETH AND SUPPORTING STRUCTU 03/19/2020 SAMIR VARGAS Ankur Ot K76.9 LIVER DISEASE, UNSPECIFIED 03/19/2020 SAMIR VARGAS Ot Z90.49 ACQUIRED ABSENCE OF OTHER SPECIFIED PART 03/19/2020 YULISSA CASTANEDA MD Ot S22.082S UNSTABLE BURST FRACTURE OF T11-T12 VERTE 03/19/2020 YULISSA CASTANEDA MD Ot X58.XXXS EXPOSURE TO OTHER SPECIFIED FACTORS, SEQ 03/19/2020 YULISSA CASTANEDA MD Ot Y99.8 OTHER EXTERNAL CAUSE STATUS 03/19/2020 YULISSA CASTANEDA MD Ot Z98.1 ARTHRODESIS STATUS 03/19/2020 JUAN J DEJESUS MD Ot 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 OF ASCENDING COLON 03/19/2020 JUAN J DEJESUS MD, Ot 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 AND UNSP MALIGNANT NEOPLASM OF 03/19/2020 JUAN J DEJESUS MD Ot Z90.49 ACQUIRED ABSENCE OF OTHER SPECIFIED PART 03/19/2020 YAIR STONE Ot Z48. 89 ENCOUNTER FOR OTHER SPECIFIED SURGICAL A 03/19/2020 YAIR STONE Ot Z98. 1 ARTHRODESIS STATUS 03/19/2020 JUAN J DEJESUS MD, Ot 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 OF ASCENDING COLON 03/19/2020 JUAN J DEJESUS MD Ot C78.7 SECONDARY MALIG NEOPLASM OF LIVER AND IN 03/19/2020 SCOTT MCKEE S TAX COMPLIANCE REPRESENTATIVE Ot 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 OF ASCENDING COLON 03/19/2020 RAFI HILAH S TAX COMPLIANCE REPRESENTATIVE Ot 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 AND UNSP MALIGNANT NEOPLASM OF 03/19/2020 MCKEE HILAH S TAX COMPLIANCE REPRESENTATIVE Ot C78.7 SECONDARY MALIG NEOPLASM OF LIVER AND IN 03/19/2020 RAFI HILAH S TAX COMPLIANCE REPRESENTATIVE Ot K80.20 CALCULUS OF GALLBLADDER W/O CHOLECYSTITI 03/19/2020 RAFI HILAH S TAX COMPLIANCE REPRESENTATIVE Ot R91.8 OTHER NONSPECIFIC ABNORMAL FINDING OF DRE 03/19/2020 SCOTT MCKEE S TAX COMPLIANCE REPRESENTATIVE Ot Z95.828 PRESENCE OF OTHER VASCULAR IMPLANTS AND 03/19/2020 YULISSA CASTANEDA MD Ot M54.9 DORSALGIA, UNSPECIFIED 03/19/2020 YULISSA CASTANEDA MD Ot Z48.89 ENCOUNTER FOR OTHER SPECIFIED SURGICAL A 03/19/2020 YULISSA CASTANEDA MD Ot Z98.1 ARTHRODESIS STATUS 03/19/2020 SAMIR VARGAS Ot 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 OF ASCENDING COLON 03/19/2020 SAMIR VARGAS Ot 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 AND UNSP MALIGNANT NEOPLASM OF 03/19/2020 SAMIR VARGAS Ot C78.7 SECONDARY MALIG NEOPLASM OF LIVER AND IN 03/19/2020 RAFI HILAH S TAX COMPLIANCE REPRESENTATIVE Ot 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 OF ASCENDING COLON 03/19/2020 RAFI HILAH S TAX COMPLIANCE REPRESENTATIVE Ot 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 AND UNSP MALIGNANT NEOPLASM OF 03/19/2020 RAFI HILAH S TAX COMPLIANCE REPRESENTATIVE Ot C78.7 SECONDARY MALIG NEOPLASM OF LIVER AND IN 03/19/2020 RAFI HILAH S TAX COMPLIANCE REPRESENTATIVE Ot Z95.828 PRESENCE OF OTHER VASCULAR IMPLANTS AND 03/19/2020 MCKEE HILAH S TAX COMPLIANCE REPRESENTATIVE Ot Z98.890 OTHER SPECIFIED POSTPROCEDURAL STATES 03/19/2020 SAMIR VARGAS N Ot 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 OF ASCENDING COLON 03/19/2020 SAMIR VARGAS N Ot 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 AND UNSP MALIGNANT NEOPLASM OF 03/19/2020 SAMIR VARGAS N Ot C78.7 SECONDARY MALIG NEOPLASM OF LIVER AND IN 03/19/2020 SAMIR VARGAS N Ot K76.9 LIVER DISEASE, UNSPECIFIED 03/19/2020 SAMIR VARGAS N Ot Z87.81 PERSONAL HISTORY OF (HEALED) TRAUMATIC F 03/19/2020 SAMIR VARGAS N Ot Z95.828 PRESENCE OF OTHER VASCULAR IMPLANTS AND 03/19/2020 ALICIASAMIR PERSAUD N Ot Z98.1 ARTHRODESIS STATUS 03/19/2020 SAMIR VARGAS N Ot C18.9 MALIGNANT NEOPLASM OF COLON, UNSPECIFIED 03/19/2020 SAMIR VARGAS N Ot 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 AND UNSP MALIGNANT NEOPLASM OF 03/19/2020 SAMIR VARGAS N Ot C78.7 SECONDARY MALIG NEOPLASM OF LIVER AND IN 03/19/2020 SAMIR VARGAS N Ot K80.20 CALCULUS OF GALLBLADDER W/O CHOLECYSTITI 03/19/2020 ALICIASAMIR PERSAUD N Ot Z95.828 PRESENCE OF OTHER VASCULAR IMPLANTS AND 03/19/2020 SAMIR VARGAS N Ot Z98.890 OTHER SPECIFIED POSTPROCEDURAL STATES 03/19/2020 CHARLI YUEN, CHE HORNER S Ot C18.9 MALIGNANT NEOPLASM OF COLON, UNSPECIFIED 03/19/2020 Ot 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 GNANT NEOPLASM OF CECUM 03/19/2020 Ot 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 GNANT NEOPLASM OF ASCENDING COLON 03/19/2020 Ot C77.2 SECO NDARY AND UNSP MALIGNANT NEOPLASM OF 03/19/2020 Ot C78.7 SECO NDARY MALIG NEOPLASM OF LIVER AND IN 03/19/2020 Ot E66.01 MOR BID (SEVERE) OBESITY DUE TO EXCESS CA 03/19/2020 Ot F17.210 NI COTINE DEPENDENCE, CIGARETTES, UNCOMPL 03/19/2020 Ot K64.8 OTHE R HEMORRHOIDS 03/19/2020 Ot Z51.11 ENC OUNTER FOR ANTINEOPLASTIC CHEMOTHERAP 03/19/2020 Ot Z68.41 BOD Y MASS INDEX (BMI) 40.0-44.9, ADULT 03/19/2020 Ot Z79.899 OT HER WAITER/WAITRESS INFORMAL (CURRENT) DRUG THERAPY 03/19/2020 Ot Z80.0 FAMI LY HISTORY OF MALIGNANT NEOPLASM OF 03/19/2020 Ot Z90.49 ACQ UIRED ABSENCE OF OTHER SPECIFIED PART 03/19/2020 BAKARI GOODSON APRN Ot C18 .9 MALIGNANT NEOPLASM OF COLON, UNSPECIFIED 03/19/2020 BAKARI GOODSON PROSECUTING ATTORNEY Ot C78 .7 SECONDARY MALIG NEOPLASM OF LIVER AND IN 03/19/2020 BAKARI GOODSON PROSECUTING ATTORNEY Ot I10 ESSENTIAL (PRIMARY) HYPERTENSION 03/19/2020 GOODSONBAKARI PROSECUTING ATTORNEY Ot R52 PAIN, UNSPECIFIED 03/19/2020 BAKARI GOODSON PROSECUTING ATTORNEY Ot Z82.49 FAMILY HX OF ISCHEM HEART DIS AND OTH DI 03/21/2020 BAKARI GOODSON APRN Ot C18 .9 MALIGNANT NEOPLASM OF COLON, UNSPECIFIED 03/21/2020 BAKARI GOODSON APRN Ot C78 .7 SECONDARY MALIG NEOPLASM OF LIVER AND IN 03/21/2020 BAKARI GOODSON PROSECUTING ATTORNEY Ot I10 ESSENTIAL (PRIMARY) HYPERTENSION 03/21/2020 GOODSONBAKARI CORCORAN PROSECUTING ATTORNEY Ot R52 PAIN, UNSPECIFIED 03/21/2020 BAKARI GOODSON PROSECUTING ATTORNEY Ot Z82.49 FAMILY HX OF ISCHEM HEART DIS AND OTH DI 03/24/2020 BAKARI GOODSON APRN Ot C18 .9 MALIGNANT NEOPLASM OF COLON, UNSPECIFIED 03/24/2020 BAKARI GOODSON PROSECUTING ATTORNEY Ot C78 .7 SECONDARY MALIG NEOPLASM OF LIVER AND IN 03/24/2020 BAKARI GOODSON PROSECUTING ATTORNEY Ot I10 ESSENTIAL (PRIMARY) HYPERTENSION 03/24/2020 GOODSONBAKARI CORCORAN PROSECUTING ATTORNEY Ot R52 PAIN, UNSPECIFIED 03/24/2020 GOODSONBAKARI CORCORAN PROSECUTING ATTORNEY Ot Z11.59 ENCOUNTER FOR SCREENING FOR OTHER VIRAL 03/24/2020 BAKARI GOODSON PROSECUTING ATTORNEY Ot Z82.49 FAMILY HX OF ISCHEM HEART DIS AND OTH DI 03/24/2020 BAKARI GOODSON PROSECUTING ATTORNEY Ot C18 .9 MALIGNANT NEOPLASM OF COLON, UNSPECIFIED 03/24/2020 BAKARI GOODSON PROSECUTING ATTORNEY Ot C78 .7 SECONDARY MALIG NEOPLASM OF LIVER AND IN 03/24/2020 BAKARI GOODSON PROSECUTING ATTORNEY Ot I10 ESSENTIAL (PRIMARY) HYPERTENSION 03/24/2020 BAKARI GOODSON APRN Ot R52 PAIN, UNSPECIFIED 03/24/2020 BAKARI GOODSON APRN Ot Z11.59 ENCOUNTER FOR SCREENING FOR OTHER VIRAL 03/24/2020 BAKARI GOODSON APRN Ot Z82.49 FAMILY HX OF ISCHEM HEART DIS AND OTH DI 03/27/2020 BAKARI GOODSON APRN Ot C18 .9 MALIGNANT NEOPLASM OF COLON, UNSPECIFIED 03/27/2020 BAKARI GOODSON APRN Ot C78 .7 SECONDARY MALIG NEOPLASM OF LIVER AND IN 03/27/2020 BAKARI GOODSON APRN Ot I10 ESSENTIAL (PRIMARY) HYPERTENSION 03/27/2020 BAKARI GOODSON APRN Ot R52 PAIN, UNSPECIFIED 03/27/2020 BAKARI GOODSON APRN Ot Z82.49 FAMILY HX OF ISCHEM HEART DIS AND OTH DI Procedures Code Description Performed By Per formed On [id number] EX CISION OF MESENTERIC LYMPHATIC, PERC E 04/13/2017 [id number] RE SECTION OF RIGHT LARGE INTESTINE, OPEN 04/13/2017 [id number] RO BOTIC ASSISTED PROCEDURE OF TRUNK, PER [...] 3.2-4.5 Blood type T Indirect antibody screen pa [facility] - 04/08/17 09:40 ABO+Rh group AN NRG Blood group antibody screen NEGATIVE NR G Methicillin resistant Staphylococcus aur eus (MRSA) screening culture - 04/08/17 09:40 Methicillin resistant Staphylococcus aureus (MRSA) scr eening culture NEG NRG Blood type T Indirect antibody screen [facility] - 04/13/17 07:02 ABO+Rh group AN NRG Transfusion band number [id number] NRG Blood group antibody screen NEGATIVE NR [...] ABO+Rh group AN NRG Transfusion band number [id number] NRG Blood group antibody screen NEGATIVE NR [...] ragweed IgE antibody assay - 05/16 10:33 [id number] 5.4 % 0.0-5.0 Urine protein/creatinine mass ratio [...] GAMMA GLUTAMYL TRANSFER (GGT) 120 U/L 0-65 Complete blood count (CBC) with automate d white blood cell (WBC) differential - 03/19/20 19:51 Blood leukocytes automated count (number/volume) 4.1 10*3/uL 4.3-11.0 Blood erythrocytes automated count (number/volume) 5.34 10*6/uL 4.35-5.85 Venous blood hemoglobin measurement (mass/volume) 14.2 g/dL 13.3-17.7 Blood hematocrit (volume fraction) 43 % 40-54 Automated erythrocyte mean corpuscular volume 80 [ foz_us] 80-99 Automated erythrocyte mean corpuscular h emoglobin (mass per erythrocyte) 27 pg 25-34 Automated erythrocyte mean corpuscular h emoglobin concentration measurement (mass/volume) 33 g/dL 32-36 Automated erythrocyte distribution width ratio 18. 6 % 10.0- 14.5 Automated blood platelet count (count/volume) 157 10*3/uL 130-400 Automated blood platelet mean volume measurement 8.5 [foz_us] 7.4-10.4 Automated blood neutrophils/100 leukocytes 47 % 42-75 Automated blood lymphocytes/100 leukocytes 35 % 12-44 Blood monocytes/100 leukocytes 15 % 0-12 Automated blood eosinophils/100 leukocytes 3 % 0-10 Automated blood basophils/100 leukocytes 1 % 0-10 Blood neutrophils automated count (number/volume) 1.9 10*3 1.8-7.8 Blood lymphocytes automated count (number/volume) 1.4 10*3 1.0-4.0 Blood monocytes automated count (number/volume) 0. 6 10*3 0.0-1.0 Automated eosinophil count 0.1 10*3/uL 0 .0-0.3 Automated blood basophil count (count/volume) 0.0 10*3/uL 0.0-0.1 Comprehensive metabolic panel - 03/19/20 19:51 Serum or plasma sodium measurement (moles/volume) 133 mmol/L 135-145 Serum or plasma potassium measurement (moles/volume) 4.4 mmol/L 3.6-5.0 Serum or plasma chloride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
[2020-05-20] MEDS ORDERED: NS IV 1000 ML 1,000 ML IV SCH (07:41)
[2020-05-20] MEDS ORDERED: fentaNYL INJECTION 100 MCG/2 ML AMP IVP ONE (07:45)
--- NOTE | 2020-05-20 07:50 | ED Lower Extremity ---
General Stated Complaint: LEG WOUNDS Source: patient Exam Limitations: no limitations History of Present Illness Date Seen by Provider: May 20, 2020 Time Seen by Provider: 07:30 Initial Comments Patient arrives the ER by private conveyance from home with chief complaint of worsening ulcers on his bilateral lower extremity's. He has chronic venous stasis wounds she went to Mr. Coker at [facility] and was put on Augmentin. He completed that course and did not think it made any difference. They also started him on some Silvadene cream which has caused some worsening of the ulcerations. He is not in wound care. His understanding was that his primary care provider could not refer him to wound care. He's not had any fevers or chil ls. No nausea vomiting shortness of breath. He is under experimental treatment in [place], [place] for his metastatic colon cancer. He used to follow with Dr. Mai locally. He says his pains about a 6 out of 10 in both of his legs. He takes 30 mg OxyContin 3 times a day at baseline. Allergies and Home Medications Allergies Coded Allergies: oxaliplatin (Verified Allergy, Severe, 12/28/17) Home Medications Amlodipine Besylate 10 Mg Tablet, 10 MG PO DAILY, (Reported) Baclofen 10 Mg Tablet, 10 MG PO TID PRN for MUSCLE SPASMS, (Reported) Carvedilol 3.125 Mg Tablet, 3.125 MG PO BID WITH MEALS, (Reported) Furosemide 20 Mg Tablet, 20 MG PO DAILY PRN for feet swelling, (Reported) Lisinopril 10 Mg Tablet, 10 MG PO DAILY@0900 Prescribed by: J CARLOS ARANDA on 06/14/17 1041 Oxycodone HCl/Acetaminophen 1 Each Tablet, 2 TAB PO Q6H PRN for PAIN-SEVERE, (Reported) [Vitamin B17] , 1 TAB PO DAILY, (Reported) Patient Home Medication List Home Medication List Reviewed: Yes Review of Systems Constitutional: No chills, No fever, No malaise, No weakness EENTM: No ear discharge, No ear pain Respiratory: No cough, No short of breath Cardiovascular: edema; No palpitations Gastrointestinal: No abdominal pain, No nausea, No vomiting Genitourinary: No discharge, No dysuria Musculoskeletal: No back pain, No joint pain Skin: see HPI All Other Systems Reviewed Negative Unless Noted: Yes Past Gmckceb-Dogbtb-Zdfhaq Hx Patient Social History Alcohol Use: Occasionally Uses Alcohol Beverage of Choice: Beer Recreational Drug Use: Yes Drug of Choice: MARIJUANA Smoking Status: Former Smoker Type Used: Cigarettes Former Smoker, Quit: March 28, 2017 Recent Foreign Travel: No Contact w/Someone Who Travel: No Recent Hopitalizations: No Immunizations Up To Date Tetanus Booster (TDap): Unknown Date of Pneumonia Vaccine: Aug 30, 2015 Seasonal Allergies Seasonal Allergies: Yes Past Medical History Surgeries: Yes (COLONOSCOPY, COLON RESECTION, ligament surgery on leg) Abdominal, Tonsillectomy Respiratory: Yes Currently Using CPAP: No Currently Using BIPAP: No Cardiac: Yes Hypertension Neurological: No Reproductive Disorders: No Sexually Transmitted Disease: No HIV/AIDS: No Genitourinary: No Gastrointestinal: Yes (CECAL MASS, RLQ PAIN) Hemorrhoids Musculoskeletal: Yes Arthritis, Back Injury Endocrine: No HEENT: Yes (GLASSES) Loss of Vision: Bilateral Hearing Impairment: Denies Cancer: Yes Colon What Type of Treatment Did You: Chemotherapy, Surgical Intervention Psychosocial: No Integumentary: No Blood Disorders: No Adverse Reaction/Blood Tranf: No Family Medical History Patient reports no known family medical history. Heart Disease, Hypertension Physical Exam Vital Signs Vital Signs - First Documented 05/20/20 07:30 Temp 36.8 Pulse 114 Resp 18 B/P (MAP) 145/95 (112) Pulse Ox 99 Capillary Refill : Height, Weight, BMI Height: 5'5.00" Weight: 236lbs. 0.0oz. 107.229295cc; 38.00 BMI Method:Estimated General Appearance: WD/WN, no apparent distress HEENT: PERRL/EOMI, pharynx normal Neck: full range of motion, normal inspection Cardiovascular: normal peripheral pulses, regular rate, rhythm Respiratory: no respiratory distress, no accessory muscle use Gastrointestinal: normal bowel sounds, non tender, soft Knees: bilateral knee pain, bilateral knee soft tissue tenderness, bilateral knee swelling, bilateral knee other (breakdown of the skin in the same shape of the Silvadene impregnated bandages that he was wrapping on them anteriorly. The rest the skin has chronic lymphedema with non-blanchable erythematous appearance.) Neurologic/Tendon: normal sensation, normal motor functions Neurologic/Psychiatric: alert, normal mood/affect, oriented x 3 Procedures/Interventions Date of ETT Placement: May 16, 2017 Time of ETT Placement: 1728 Progress/Results/Core Measures Results/Orders Lab Results Laboratory Tests Test 05/20/20 07:44 05/20/20 07:54 05/20/20 08:03 Range/Units White Blood Count 7.6 4.3-11.0 10^3/uL Red Blood Count 4.56 4.35-5.85 10^6/uL Hemoglobin 12.5 L 13.3-17.7 G/DL Hematocrit 39 L 40-54 % Mean Corpuscular Volume 85 80-99 FL Mean Corpuscular Hemoglobin 27 25-34 PG Mean Corpuscular Hemoglobin Concent 32 32-36 G/DL Red Cell Distribution Width 18.7 H 10.0-14.5 % Platelet Count 355 130-400 10^3/uL Mean Platelet Volume 8.4 7.4-10.4 FL Neutrophils (%) (Auto) 49 42-75 % Lymphocytes (%) (Auto) 35 12-44 % Monocytes (%) (Auto) 10 0-12 % Eosinophils (%) (Auto) 6 0-10 % Basophils (%) (Auto) 1 0-10 % Neutrophils # (Auto) 3.7 1.8-7.8 X 10^3 Lymphocytes # (Auto) 2.6 1.0-4.0 X 10^3 Monocytes # (Auto) 0.8 0.0-1.0 X 10^3 Eosinophils # (Auto) 0.4 H 0.0-0.3 10^3/uL Basophils # (Auto) 0.1 0.0-0.1 10^3/uL Sodium Level 135 135-145 MMOL/L Potassium Level 4.0 3.6-5.0 MMOL/L Chloride Level 99 98-107 MMOL/L Carbon Dioxide Level 25 21-32 MMOL/L Anion Gap 11 5-14 MMOL/L Blood Urea Nitrogen 9 7-18 MG/DL Creatinine 0.97 0.60-1.30 MG/DL Estimat Glomerular Filtration Rate > 60 BUN/Creatinine Ratio 9 Glucose Level 111 H 70-105 MG/DL Lactic Acid Level 1.32 0.50-2.00 MMOL/L Calcium Level 8.8 8.5-10.1 MG/DL Corrected Calcium 9.1 8.5-10.1 MG/DL Total Bilirubin 0.4 0.1-1.0 MG/DL Aspartate Amino Transf (AST/SGOT) 26 5-34 U/L Alanine Aminotransferase (ALT/SGPT) 17 0-55 U/L Alkaline Phosphatase 87 40-136 U/L Total Protein 7.2 6.4-8.2 GM/DL Albumin 3.6 3.2-4.5 GM/DL Urine Color YELLOW Urine Clarity CLEAR Urine pH 6.0 5-9 Urine Specific [place] 1.010 L 1.016-1.022 Urine Protein NEGATIVE NEGATIVE Urine Glucose (UA) NEGATIVE NEGATIVE Urine Ketones NEGATIVE NEGATIVE Urine Nitrite NEGATIVE NEGATIVE Urine Bilirubin NEGATIVE NEGATIVE Urine Urobilinogen 0.2 < = 1.0 MG/DL Urine Leukocyte Esterase NEGATIVE NEGATIVE Urine RBC (Auto) NEGATIVE NEGATIVE Urine RBC NONE /HPF Urine WBC NONE /HPF Urine Crystals NONE /LPF Urine Bacteria NEGATIVE /HPF Urine Casts NONE /LPF Urine Mucus NEGATIVE /LPF Urine Culture Indicated NO Urine Opiates Screen NEGATIVE NEGATIVE Urine Oxycodone Screen POSITIVE H NEGATIVE Urine Methadone Screen NEGATIVE NEGATIVE Urine Propoxyphene Screen NEGATIVE NEGATIVE Urine Barbiturates Screen NEGATIVE NEGATIVE Ur Tricyclic Antidepressants Screen NEGATIVE NEGATIVE Urine Phencyclidine Screen NEGATIVE NEGATIVE Urine Amphetamines Screen NEGATIVE NEGATIVE Urine Methamphetamines Screen NEGATIVE NEGATIVE Urine Benzodiazepines Screen NEGATIVE NEGATIVE Urine Cocaine Screen NEGATIVE NEGATIVE Urine Cannabinoids Screen NEGATIVE NEGATIVE Prothrombin Time 13.5 12.2-14.7 SEC INR Comment 1.0 0.8-1.4 Activated Partial Thromboplast Time 39 H 24-35 SEC My Orders Orders - LIAM GILLETTE Cbc With Automated Diff (05/20/20 07:41) Comprehensive Metabolic Panel (05/20/20 07:41) Blood Culture (05/20/20 07:41) Sputum Culture (05/20/20 07:41) Urinalysis (05/20/20 07:41) Urine Culture (05/20/20 07:41) Protime With Inr (05/20/20 07:41) Partial Thromboplastin Time (05/20/20 07:41) Chest 1 View, Ap/Pa Only (05/20/20 07:41) Ed Iv/Invasive Line Start (05/20/20 07:41) Ed Iv/Invasive Line Start (05/20/20 07:41) Vital Signs Adult Sepsis Patie Q15M (05/20/20 07:41) O2 (05/20/20 07:41) Remove Rings In Anticipation O (05/20/20 07:41) Lactic Acid Analyzer (05/20/20 07:41) Ns Iv 1000 Ml (Sodium Chloride 0.9%) (05/20/20 07:41) Fentanyl Injection (Sublimaze Injection (05/20/20 07:45) Drug Screen Stat (Urine) (05/20/20 08:25) Oxycodone/Apap 5/325mg Tablet (Percocet (05/20/20 09:45) Medications Given in ED Current Medications Medications Dose Ordered Sig/Solitario Route Start Time Stop Time Status Last Admin Dose Admin Fentanyl Citrate 50 mcg ONCE ONCE IVP 05/20/20 07:45 05/20/20 07:47 DC 05/20/20 07:55 50 MCG Vital Signs/I&O 05/20/20 07:30 Temp 36.8 Pulse 114 Resp 18 B/P (MAP) 145/95 (112) Pulse Ox 99 Progress Progress Note #1: Time: 08:55 Progress Note Patient's tachycardic so plan him some fluids. His legs don't look particularly cellulitic but there is a lot of venostasis with significant skin breakdown related to his use of Silvadene cream. We'll encourage him to discontinue use of this and would try to get him in with wound care. We'll get some labs, and rule out sepsis. We'll also include a drug screen. We will give him a liter fluids. 50 g of IV fentanyl for his 6 out of 10 pain. Progress Note #2: Time: 09:38 Progress Note Patient is pains a little better but is starting to come back as the fentanyl wears off. Regarding give him 2 Percocets and we have called Dr. Gilliland at wound care. Dr. Butcher advises his nurse Rossana will get with the patient by phone and set up an appointment in the next 24-48 hours if possible. Patient is okay with this plan. We have instructed the patient stop using the Silvadene cream. Nursing has scheduled appointment 9 AM in the morning at wound care. Diagnostic Imaging Diagonstic Imaging: Xray Plain Films/CT/US/NM/MRI: chest (1v) Comments NAME: EDITH JIMÉNEZ MED REC#: [id number] PT STATUS: REG ER : 1960 PHYSICIAN: LIAM GILLETTE MD ADMIT DATE: 05/20/20/ER Draft Date of Exam:05/20/20 CHEST 1 VIEW, AP/PA ONLY Indication: Weeping swollen lower extremities. Findings: Heart size is stable. There is no abnormal distention of pulmonary vascularity, no findings suggestive of radiographic features of hypervolemia or failure. No effusion, pneumothorax or pneumonia. Right IJ catheter tip projects over the lower SVC stable. Impression: Stable unremarkable frontal chest x-ray. Dictated on workstation # [id number] Dict: 05/20/20 0847 Trans: 05/20/20 0849 CVB [id number] Interpreted by: ZANA MOYA Electronically signed by: Reviewed: Reviewed by Me Departure Impression Primary Impression: Ulcers of both lower extremities Qualified Codes: L97.919 - Non-pressure chronic ulcer of unspecified part of right lower leg with unspecified severity; L97.929 - Non-pressure chronic ulcer of unspecified part of left lower leg with unspecified severity Disposition: 01 HOME, SELF-CARE Condition: Stable Departure-Patient Inst. Decision time for Depature: 09:39 Referrals: MAAME REYES MD NO,LOCAL PHYSICIAN (PCP) Primary Care Physician Patient Instructions: Debridement of a Wound or Burn (DC) Add. Discharge Instructions: You have an appointment with Dr. Gilliland at 9 AM tomorrow morning. Go home and take a shower wash all of the cream off your legs. You may replace with petroleum jelly if you wish. Redress it with gauze and ABD pads. Percocet 1 tablet every 6 hours as necessary for breakthrough pain. Will cause increase drowsiness and constipation. MiraLAX to be used once or twice a day to stay regular while you are using any additional opiates. Continue using your other prescribed medicines as described. Stop using Silvadene cream. Scripts Oxycodone HCl/Acetaminophen (Percocet 10-325 mg Tablet) 1 Each Tablet 1 TAB PO Q6H PRN for PAIN-MODERATE MDD 3 TABS for 7 Days, #30 TAB 0 Refills Prov: LIAM GILLETTE 05/20/20 Copy Copies To 1: MAAME REYES MD, TITUS J May 20, 2020 07:50
[2020-05-20 07:57] LABS: BASOPHILS # (AUTO) 0.1 10^3/uL (0.0-0.1); BASOPHILS % (AUTO) 1 % (0-10); EOSINOPHILS # (AUTO) 0.4 10^3/uL (0.0-0.3); EOSINOPHILS % (AUTO) 6 % (0-10); HEMATOCRIT 39 % (40-54); HEMOGLOBIN 12.5 G/DL (13.3-17.7); LYMPHOCYTES # (AUTO) 2.6 X 10^3 (1.0-4.0); LYMPHOCYTES % (AUTO) 35 % (12-44); MEAN CORPUSCULAR HEMOGLOBIN 27 PG (25-34); MEAN CORPUSCULAR HGB CONC 32 G/DL (32-36); MEAN CORPUSCULAR VOLUME 85 FL (80-99); MEAN PLATELET VOLUME 8.4 FL (7.4-10.4); MONOCYTES # (AUTO) 0.8 X 10^3 (0.0-1.0); MONOCYTES % (AUTO) 10 % (0-12); NEUTROPHILS # (AUTO) 3.7 X 10^3 (1.8-7.8); NEUTROPHILS % (AUTO) 49 % (42-75); PLATELET COUNT 355 10^3/uL (130-400); RED CELL DISTRIBUTION WIDTH 18.7 % (10.0-14.5); WHITE BLOOD COUNT 7.6 10^3/uL (4.3-11.0)
[2020-05-20 07:59] LABS: BILIRUBIN,URINE NEGATIVE (NEGATIVE); CLARITY,URINE CLEAR; COLOR,URINE YELLOW; GLUCOSE, URINE (UA) NEGATIVE (NEGATIVE); KETONES,URINE NEGATIVE (NEGATIVE); LEUKOCYTE ESTERASE ,URINE NEGATIVE (NEGATIVE); NITRITE,URINE NEGATIVE (NEGATIVE); PROTEIN,URINE NEGATIVE (NEGATIVE)
[2020-05-20 08:09] LABS: ALBUMIN 3.6 GM/DL (3.2-4.5); CHLORIDE 99 MMOL/L (98-107); SODIUM 135 MMOL/L (135-145)
[2020-05-20 08:11] LABS: CALCIUM 8.8 MG/DL (8.5-10.1)
[2020-05-20 08:12] LABS: BACTERIA,URINE NEGATIVE /HPF
[2020-05-20 08:12] LABS: GLUCOSE 111 MG/DL (70-105); TOTAL PROTEIN 7.2 GM/DL (6.4-8.2)
[2020-05-20 08:13] LABS: CARBON DIOXIDE 25 MMOL/L (21-32)
[2020-05-20 08:14] LABS: BILIRUBIN,TOTAL 0.4 MG/DL (0.1-1.0)
[2020-05-20 08:15] LABS: ALKALINE PHOSPHATASE 87 U/L (40-136)
[2020-05-20 08:16] LABS: CREATININE SERUM 0.97 MG/DL (0.60-1.30); GFR ESTIMATED > 60
[2020-05-20 08:17] LABS: BUN/CREATININE RATIO 9
[2020-05-20 08:18] LABS: ALANINE AMINOTRANSFERASE 17 U/L (0-55)
--- NOTE | 2020-05-20 08:49 | Diagnostic Imaging Report ---
Indication: Weeping swollen lower extremities. Findings: Heart size is stable. There is no abnormal distention of pulmonary vascularity, no findings suggestive of radiographic features of hypervolemia or failure. No effusion, pneumothorax or pneumonia. Right IJ catheter tip projects over the lower SVC stable. Impression: Stable unremarkable frontal chest x-ray. Dictated by: Dictated on workstation # [id number]
[2020-05-20 08:50] LABS: PROTHROMBIN TIME PATIENT 13.5 SEC (12.2-14.7)
--- NOTE | 2020-05-20 08:50 | NUR ---
TO ROOM FLUIDS INFUSING REPORTS PAIN INFUSING.
[2020-05-20 09:24] LABS: AMPHETAMINE SCREEN, URINE NEGATIVE (NEGATIVE); BARBITURATE SCREEN URINE NEGATIVE (NEGATIVE); BENZODIAZEPINES SCREEN URINE NEGATIVE (NEGATIVE); CANNABINOID SCREEN, URINE NEGATIVE (NEGATIVE); COCAINE SCREEN URINE NEGATIVE (NEGATIVE); METHADONE STAT NEGATIVE (NEGATIVE); METHAMPHETAMINE SCREEN URINE S NEGATIVE (NEGATIVE); OPIATE SCREEN URINE NEGATIVE (NEGATIVE); OXYCODONE STAT POSITIVE (NEGATIVE); PROPOXYPHENE STAT NEGATIVE (NEGATIVE); TRICYCLIC ANTIDEPRESSANTS SCRE NEGATIVE (NEGATIVE)
[2020-05-20] MEDS ORDERED: OXYC1TAB12 PO (09:42)
[2020-05-20] MEDS ORDERED: oxyCODONE/APAP 5/325MG (PERCOCET 5) TABLET PO ONE (09:45)
--- NOTE | 2020-05-20 09:53 | NUR ---
ROJAS NEEDLE REMOVED ON DISCHARGE
[2020-05-20 11:15] VITALS: BP 106/93
== END 2020-05-20 09:57 | disposition home or self-care (01) ==
LOC: EDUNIT# 07:26 → ER 07:27
DX: L97.919 Non-pressure chronic ulcer of unspecified part of right lower leg with unspecified severity (principal); L97.929 Non-pressure chronic ulcer of unspecified part of left lower leg with unspecified severity; I10 Essential (primary) hypertension; Z88.8 Allergy status to other drugs, medicaments and biological substances; Z87.891 Personal history of nicotine dependence; Z82.49 Family history of ischemic heart disease and other diseases of the circulatory system; Z85.038 Personal history of other malignant neoplasm of large intestine
CPT/HCPCS: 36415; 71045; 80053; 80306; 81000; 83605; 85025; 85610; 85730; 87040; 87088

== ENCOUNTER → 2020-05-21 | Outpatient (CLI) | payer MEDICARE ==
[~2020-05-21] MED LIST changes: +OXYC1TAB12 PO
== END ==
LOC: WOUNDCARE 08:55
PROVIDERS: ATTEND Surgery
DX: I87.333 Chronic venous hypertension (idiopathic) with ulcer and inflammation of bilateral lower extremity (principal); I89.8 Other specified noninfective disorders of lymphatic vessels and lymph nodes; L97.212 Non-pressure chronic ulcer of right calf with fat layer exposed; L97.222 Non-pressure chronic ulcer of left calf with fat layer exposed; I70.232 Atherosclerosis of native arteries of right leg with ulceration of calf; I70.242 Atherosclerosis of native arteries of left leg with ulceration of calf; L03.115 Cellulitis of right lower limb; L03.116 Cellulitis of left lower limb; T65.222A Toxic effect of tobacco cigarettes, intentional self-harm, initial encounter; C78.7 Secondary malignant neoplasm of liver and intrahepatic bile duct; F17.218 Nicotine dependence, cigarettes, with other nicotine-induced disorders; I10 Essential (primary) hypertension; M19.90 Unspecified osteoarthritis, unspecified site; Z92.21 Personal history of antineoplastic chemotherapy; Z91.040 Latex allergy status; Z88.8 Allergy status to other drugs, medicaments and biological substances; Z87.891 Personal history of nicotine dependence; Z79.899 Other long term (current) drug therapy
CPT/HCPCS: A6253; G0463; 99214

== ENCOUNTER → 2020-05-26 | Outpatient (CLI) | payer MEDICARE | LOC: WOUNDCARE 12:52 | PROVIDERS: ATTEND Surgery | DX: I70.263 Atherosclerosis of native arteries of extremities with gangrene, bilateral legs (principal); I87.333 Chronic venous hypertension (idiopathic) with ulcer and inflammation of bilateral lower extremity; L97.222 Non-pressure chronic ulcer of left calf with fat layer exposed; L97.212 Non-pressure chronic ulcer of right calf with fat layer exposed; C78.7 Secondary malignant neoplasm of liver and intrahepatic bile duct; C80.1 Malignant (primary) neoplasm, unspecified; L03.116 Cellulitis of left lower limb; L03.115 Cellulitis of right lower limb; T65.222A Toxic effect of tobacco cigarettes, intentional self-harm, initial encounter; I89.8 Other specified noninfective disorders of lymphatic vessels and lymph nodes; F17.218 Nicotine dependence, cigarettes, with other nicotine-induced disorders | CPT/HCPCS: A6253; G0463; 99214 ==

== ENCOUNTER → 2020-06-03 | Outpatient (CLI) | payer MEDICARE | LOC: WOUNDCARE 13:16 | PROVIDERS: ATTEND Surgery | DX: I89.8 Other specified noninfective disorders of lymphatic vessels and lymph nodes (principal); L97.212 Non-pressure chronic ulcer of right calf with fat layer exposed; L97.222 Non-pressure chronic ulcer of left calf with fat layer exposed; I70.232 Atherosclerosis of native arteries of right leg with ulceration of calf; I70.242 Atherosclerosis of native arteries of left leg with ulceration of calf; L03.115 Cellulitis of right lower limb; L03.116 Cellulitis of left lower limb; I87.333 Chronic venous hypertension (idiopathic) with ulcer and inflammation of bilateral lower extremity; T65.222A Toxic effect of tobacco cigarettes, intentional self-harm, initial encounter; F17.218 Nicotine dependence, cigarettes, with other nicotine-induced disorders; C78.7 Secondary malignant neoplasm of liver and intrahepatic bile duct | CPT/HCPCS: A6253; G0463; 99214 ==

== ENCOUNTER → 2020-06-10 | Outpatient (CLI) | payer MEDICARE | LOC: WOUNDCARE 12:23 | PROVIDERS: ATTEND Surgery | DX: I89.8 Other specified noninfective disorders of lymphatic vessels and lymph nodes (principal); L97.212 Non-pressure chronic ulcer of right calf with fat layer exposed; L97.222 Non-pressure chronic ulcer of left calf with fat layer exposed; I87.333 Chronic venous hypertension (idiopathic) with ulcer and inflammation of bilateral lower extremity; T65.222A Toxic effect of tobacco cigarettes, intentional self-harm, initial encounter; C80.1 Malignant (primary) neoplasm, unspecified; C78.7 Secondary malignant neoplasm of liver and intrahepatic bile duct; I96 Gangrene, not elsewhere classified; F17.218 Nicotine dependence, cigarettes, with other nicotine-induced disorders | CPT/HCPCS: 99213 ==

== ENCOUNTER → 2020-06-17 | Outpatient (CLI) | payer MEDICARE | LOC: WOUNDCARE 12:24 | PROVIDERS: ATTEND Surgery | DX: I89.8 Other specified noninfective disorders of lymphatic vessels and lymph nodes (principal); L97.212 Non-pressure chronic ulcer of right calf with fat layer exposed; L97.222 Non-pressure chronic ulcer of left calf with fat layer exposed; I87.333 Chronic venous hypertension (idiopathic) with ulcer and inflammation of bilateral lower extremity; F17.218 Nicotine dependence, cigarettes, with other nicotine-induced disorders; T65.222A Toxic effect of tobacco cigarettes, intentional self-harm, initial encounter; C78.7 Secondary malignant neoplasm of liver and intrahepatic bile duct; I96 Gangrene, not elsewhere classified | CPT/HCPCS: 99214 ==

== ENCOUNTER → 2020-07-28 | Outpatient (CLI) | payer MEDICARE ==
[~2020-07-28] MED LIST changes: -OXYC-465 PO; +OXYC-556 PO
== END ==
LOC: WOUNDCARE 12:26
PROVIDERS: ATTEND Surgery
DX: I96 Gangrene, not elsewhere classified (principal); L97.222 Non-pressure chronic ulcer of left calf with fat layer exposed; L97.212 Non-pressure chronic ulcer of right calf with fat layer exposed; I87.333 Chronic venous hypertension (idiopathic) with ulcer and inflammation of bilateral lower extremity; I89.8 Other specified noninfective disorders of lymphatic vessels and lymph nodes; T65.222A Toxic effect of tobacco cigarettes, intentional self-harm, initial encounter; F17.218 Nicotine dependence, cigarettes, with other nicotine-induced disorders; C78.7 Secondary malignant neoplasm of liver and intrahepatic bile duct
CPT/HCPCS: A6253; G0463; 99213

== ENCOUNTER → 2020-08-14 | Outpatient (CLI) | payer MEDICARE | LOC: WOUNDCARE 13:28 | PROVIDERS: ATTEND Surgery | DX: I89.8 Other specified noninfective disorders of lymphatic vessels and lymph nodes (principal); L97.212 Non-pressure chronic ulcer of right calf with fat layer exposed; L97.222 Non-pressure chronic ulcer of left calf with fat layer exposed; I87.333 Chronic venous hypertension (idiopathic) with ulcer and inflammation of bilateral lower extremity; T65.222A Toxic effect of tobacco cigarettes, intentional self-harm, initial encounter; C80.1 Malignant (primary) neoplasm, unspecified; C78.7 Secondary malignant neoplasm of liver and intrahepatic bile duct; I96 Gangrene, not elsewhere classified; F17.218 Nicotine dependence, cigarettes, with other nicotine-induced disorders | CPT/HCPCS: A6253; G0463; 99213 ==

== ENCOUNTER → 2020-09-02 | Outpatient (CLI) | payer MEDICARE ==
[~2020-09-02] MED LIST changes: +AMLO-251 PO; -AMLO10TA7 PO
== END ==
LOC: WOUNDCARE 14:54
PROVIDERS: ATTEND Surgery
DX: C78.7 Secondary malignant neoplasm of liver and intrahepatic bile duct (principal); I89.8 Other specified noninfective disorders of lymphatic vessels and lymph nodes; I96 Gangrene, not elsewhere classified; L97.212 Non-pressure chronic ulcer of right calf with fat layer exposed; L97.222 Non-pressure chronic ulcer of left calf with fat layer exposed; I87.333 Chronic venous hypertension (idiopathic) with ulcer and inflammation of bilateral lower extremity; T65.222A Toxic effect of tobacco cigarettes, intentional self-harm, initial encounter; F17.218 Nicotine dependence, cigarettes, with other nicotine-induced disorders
CPT/HCPCS: A6253; G0463; 99213

== ENCOUNTER → 2020-09-16 | Outpatient (CLI) | payer MEDICARE ==
[~2020-09-16] MED LIST changes: +CATHETER FLUSH 10 ML SYR IV PRN; +HOLD METFORMIN - RECEIVED CONTRAST 20 ML VIAL IV SCH; +IOHEXOL 350 MG/ML 100 ML (OMNIPAQUE 350) VIAL IV ONE; +NS 100 ML (IVPB) BAG IV ONE
--- NOTE | 2020-09-16 13:59 | Diagnostic Imaging Report ---
PROCEDURE: CT chest with contrast, CT abdomen and pelvis with and without contrast. TECHNIQUE: Pre and post intravenous contrast axial imaging of the abdomen and pelvis and post contrast axial imaging of the chest were performed. Auto Exposure Controls were utilized during the CT exam to meet ALARA standards for radiation dose reduction. INDICATION: Colon cancer. Patient has edema in both legs. COMPARISON: Comparison is made with prior CT chest from 03/19/[address] abdomen and pelvis study from 06/05/2019. FINDINGS: CT chest: Right chest wall port has the tip at the SVC right atrial junction. Previously noted right axillary soft tissue mass measures 4.5 x 2.7 cm compared with 4.0 x 2.4 cm on prior. Left axilla is unremarkable. No definite mediastinal or hilar lymphadenopathy is seen. No pericardial or pleural fluid is detected. There is trace right-sided pleural effusion. No pulmonary nodules or masses are seen. No infiltrates are detected. Extensive spinal instrumentation in the lower thoracic spine is noted. IMPRESSION: Slight increase in size of right axillary mass when compared with examination from 03/19/2020. No mediastinal or hilar lymphadenopathy or evidence of pulmonary metastatic disease is detected. CT abdomen and pelvis: A low-density lesion in right lobe of the liver posteriorly measures approximately 2.9 x 3.0 cm. This compares with 3.8 x 3.9 cm when measured by similar technique on prior exam. No new liver mass is identified. The gallbladder contains small stones. No biliary duct dilatation is seen. Pancreas and spleen are unremarkable. No adrenal mass is detected. Kidneys are unremarkable. Aorta is nonaneurysmal. IVC contains a filter. There are some prominent lymph nodes in the central retroperitoneum. A left periaortic node measures approximately 2.0 x 1.2 cm compared with 1.3 x 0.9 cm on prior. No mesenteric lymphadenopathy is detected. A right iliac node measures 2.0 x 1.2 cm compared with 1.3 x 0.6 cm on prior. Left obturator node measures 2.6 x 1.3 cm compared with 1.7 x 0.8 cm on prior. There are enlarged inguinal lymph nodes on today's study. Large right inguinal node measures 3.8 x 2.7 cm compared with 2.5 x 1.4 cm on prior. Left inguinal node measures 3.6 x 1.7 cm. This is barely visible on prior exam. Prostate is unremarkable. Bladder is unremarkable. IMPRESSION: 1. Stable to decrease in size of right lobe liver mass when compared with exam from 06/05/2019. However, there is enlarging lymphadenopathy within the abdomen and pelvis when compared with prior exam concerning for a metastatic disease. Dictated by: Dictated on workstation # [id number]
== END ==
LOC: RAD 12:45
PROVIDERS: ATTEND Internal Medicine Hematology & Oncology
DX: C18.2 Malignant neoplasm of ascending colon (principal); C78.7 Secondary malignant neoplasm of liver and intrahepatic bile duct; C77.2 Secondary and unspecified malignant neoplasm of intra-abdominal lymph nodes
CPT/HCPCS: 71260; 74178

== ENCOUNTER 2020-09-23 13:51 | Outpatient (RCR) | payer MEDICARE, OTHER ==
[2020-09-16 11:42] LABS: BASOPHILS % (AUTO) 1 % (0-10); EOSINOPHILS # (AUTO) 0.3 10^3/uL (0.0-0.3); EOSINOPHILS % (AUTO) 5 % (0-10); HEMATOCRIT 36 % (40-54); LYMPHOCYTES # (AUTO) 2.5 10^3/uL (1.0-4.0); LYMPHOCYTES % (AUTO) 44 % (12-44); MEAN CORPUSCULAR HEMOGLOBIN 27 pg (25-34); MEAN CORPUSCULAR HGB CONC 31 g/dL (32-36); MEAN CORPUSCULAR VOLUME 88 fL (80-99); MEAN PLATELET VOLUME 8.6 fL (9.0-12.2); MONOCYTES # (AUTO) 0.4 10^3/uL (0.0-1.0); MONOCYTES % (AUTO) 7 % (0-12); NEUTROPHILS # (AUTO) 2.5 10^3/uL (1.8-7.8); NEUTROPHILS % (AUTO) 44 % (42-75); PLATELET COUNT 268 10^3/uL (130-400); WHITE BLOOD COUNT 5.7 10^3/uL (4.3-11.0)
[2020-09-16 11:54] LABS: ALANINE AMINOTRANSFERASE 12 U/L (0-55); ALBUMIN 3.3 GM/DL (3.2-4.5); ALKALINE PHOSPHATASE 90 U/L (40-136); BILIRUBIN,TOTAL 0.2 MG/DL (0.1-1.0); BUN/CREATININE RATIO 9; CALCIUM 8.4 MG/DL (8.5-10.1); CARBON DIOXIDE 28 MMOL/L (21-32); CHLORIDE 100 MMOL/L (98-107); CREATININE SERUM 0.95 MG/DL (0.60-1.30); GFR ESTIMATED > 60; GLUCOSE 103 MG/DL (70-105); POTASSIUM 4.1 MMOL/L (3.6-5.0); SODIUM 135 MMOL/L (135-145); TOTAL PROTEIN 6.9 GM/DL (6.4-8.2)
[~2020-09-23 13:51] MED LIST changes: -CATHETER FLUSH 10 ML SYR IV PRN; -HOLD METFORMIN - RECEIVED CONTRAST 20 ML VIAL IV SCH; -IOHEXOL 350 MG/ML 100 ML (OMNIPAQUE 350) VIAL IV ONE; -NS 100 ML (IVPB) BAG IV ONE
== END 2020-11-10 10:24 | disposition home or self-care (01) ==
LOC: ONC 13:51
PROVIDERS: ATTEND Internal Medicine Hematology & Oncology
DX: C18.9 Malignant neoplasm of colon, unspecified (principal); C78.7 Secondary malignant neoplasm of liver and intrahepatic bile duct; C77.2 Secondary and unspecified malignant neoplasm of intra-abdominal lymph nodes
CPT/HCPCS: 80053; 82378; 85025; 99213

== ENCOUNTER → 2020-09-30 | Outpatient (CLI) | payer MEDICARE | LOC: WOUNDCARE 13:47 | PROVIDERS: ATTEND Surgery | DX: I96 Gangrene, not elsewhere classified (principal); I87.333 Chronic venous hypertension (idiopathic) with ulcer and inflammation of bilateral lower extremity; L97.222 Non-pressure chronic ulcer of left calf with fat layer exposed; L97.212 Non-pressure chronic ulcer of right calf with fat layer exposed; I89.8 Other specified noninfective disorders of lymphatic vessels and lymph nodes; T65.222A Toxic effect of tobacco cigarettes, intentional self-harm, initial encounter; F17.218 Nicotine dependence, cigarettes, with other nicotine-induced disorders; C78.7 Secondary malignant neoplasm of liver and intrahepatic bile duct | CPT/HCPCS: A6253; G0463; 99213 ==

== ENCOUNTER 2020-12-07 10:34 | Emergency (ER) | payer MEDICARE ==
[~2020-12-07] VITALS: Ht 165.1 cm; Wt 113.6 kg
[2020-12-07 12:05] LABS: BASOPHILS % (AUTO) 1 % (0-10); EOSINOPHILS # (AUTO) 0.2 10^3/uL (0.0-0.3); EOSINOPHILS % (AUTO) 4 % (0-10); HEMATOCRIT 34 % (40-54); HEMOGLOBIN 10.7 g/dL (13.3-17.7); LYMPHOCYTES # (AUTO) 2.2 10^3/uL (1.0-4.0); LYMPHOCYTES % (AUTO) 38 % (12-44); MEAN CORPUSCULAR HEMOGLOBIN 26 pg (25-34); MEAN CORPUSCULAR HGB CONC 32 g/dL (32-36); MEAN CORPUSCULAR VOLUME 84 fL (80-99); MEAN PLATELET VOLUME 8.6 fL (9.0-12.2); MONOCYTES # (AUTO) 0.5 10^3/uL (0.0-1.0); MONOCYTES % (AUTO) 8 % (0-12); NEUTROPHILS # (AUTO) 2.8 10^3/uL (1.8-7.8); NEUTROPHILS % (AUTO) 49 % (42-75); PLATELET COUNT 275 10^3/uL (130-400); WHITE BLOOD COUNT 5.7 10^3/uL (4.3-11.0)
[2020-12-07 12:11] LABS: ALBUMIN 3.3 GM/DL (3.2-4.5); CHLORIDE 103 MMOL/L (98-107); SODIUM 136 MMOL/L (135-145)
[2020-12-07 12:12] LABS: CALCIUM 8.3 MG/DL (8.5-10.1)
[2020-12-07 12:13] LABS: GLUCOSE 90 MG/DL (70-105)
[2020-12-07 12:14] LABS: CARBON DIOXIDE 24 MMOL/L (21-32)
--- NOTE | 2020-12-07 12:14 | ED General ---
General Chief Complaint: General Problems/Pain Stated Complaint: LEG PAIN, CANCER PT Nursing Triage Note: TO ED PER W/C REPORTS HAS LIVER CANCER WAS IN CLINICAL TRIAL IN [place] STOPPED GOING BECAUSE OF COVID IN NOV WAS TOLD HE HAD METS TO LYMPH NODES. HIS LEG'S HAVE BEEN SWELLING SINCE APRIL. WAS SEEN BY WOUND CARE HERE AND TOLD NOTHING THEY COULD DO. HERE TO DAY BECAUSE OF PAIN AND SWELLING IN LEGS. Nursing Sepsis Screen: No Definite Risk Source of Information: Patient Exam Limitations: No Limitations History of Present Illness Date Seen by Provider: Dec 07, 2020 Time Seen by Provider: 12:11 Initial Comments To ER with reports of bilateral lower extremity swelling and pain. 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 He has seen wound care and was told there was nothing more to do for the leg swelling. He ran out of his OxyContin 60 mg twice a day. Timing/Duration: 3-4 Days Severity: Moderate Associated Systoms: Denies Symptoms Allergies and Home Medications Allergies Coded Allergies: oxaliplatin (Verified Allergy, Severe, 12/28/17) Home Medications Amlodipine Besylate 10 Mg Tablet, 10 MG PO DAILY, (Reported) Baclofen 10 Mg Tablet, 10 MG PO TID PRN for MUSCLE SPASMS, (Reported) Carvedilol 3.125 Mg Tablet, 3.125 MG PO BID WITH MEALS, (Reported) Furosemide 20 Mg Tablet, 20 MG PO DAILY PRN for feet swelling, (Reported) Lisinopril 10 Mg Tablet, 10 MG PO DAILY@0900 Prescribed by: J CARLOS ARANDA on 06/14/17 1041 Oxycodone HCl/Acetaminophen 1 Each Tablet, 2 TAB PO Q6H PRN for PAIN-SEVERE, (Reported) Oxycodone HCl/Acetaminophen 1 Each Tablet, 1 TAB PO Q6H PRN for PAIN-MODERATE Prescribed by: LIAM GILLETTE on 05/20/20 0942 [Vitamin B17] , 1 TAB PO DAILY, (Reported) Patient Home Medication List Home Medication List Reviewed: Yes Review of Systems Review of Systems Constitutional: see HPI EENTM: see HPI Respiratory: no symptoms reported Cardiovascular: no symptoms reported Genitourinary: no symptoms reported Musculoskeletal: see HPI Skin: see HPI Psychiatric/Neurological: No Symptoms Reported Hematologic/Lymphatic: No Symptoms Reported Immunological/Allergic: no symptoms reported Past Zswfyas-Oappxu-Xzlgmu Hx Patient Social History Alcohol Use: Denies Use Number of Drinks Today: AA Alcohol Beverage of Choice: Beer Drug of Choice: MARIJUANA Type Used: Cigarettes Former Smoker, Quit: March 28, 2017 Recent Infectious Disease Expo: No Recent Hopitalizations: No Immunizations Up To Date Tetanus Booster (TDap): Unknown Date of Pneumonia Vaccine: Aug 30, 2015 Seasonal Allergies Seasonal Allergies: Yes Past Medical History Surgeries: Yes (COLONOSCOPY, COLON RESECTION, ligament surgery on leg) Abdominal, Tonsillectomy Respiratory: Yes Currently Using CPAP: No Currently Using BIPAP: No Cardiac: Yes Hypertension Neurological: No Reproductive Disorders: No Sexually Transmitted Disease: No HIV/AIDS: No Genitourinary: No Gastrointestinal: Yes (CECAL MASS, RLQ PAIN) Hemorrhoids Musculoskeletal: Yes Arthritis, Back Injury Endocrine: No HEENT: Yes (GLASSES) Loss of Vision: Bilateral Hearing Impairment: Denies Cancer: Yes Colon What Type of Treatment Did You: Chemotherapy, Surgical Intervention Psychosocial: No Integumentary: No Blood Disorders: No Adverse Reaction/Blood Tranf: No Family Medical History Patient reports no known family medical history. Heart Disease, Hypertension Physical Exam Vital Signs Vital Signs - First Documented 12/07/20 11:16 Temp 36.4 Pulse 80 Resp 18 B/P (MAP) 161/101 (121) Pulse Ox 97 O2 Delivery Room Air Capillary Refill : Less Than 3 Seconds Height, Weight, BMI Height: 5'5.00" Weight: 236lbs. 0.0oz. 107.500056aj; 41.00 BMI Method:Estimated General Appearance: No Apparent Distress, WD/WN Eyes: Bilateral Eye Normal Inspection, Bilateral Eye PERRL, Bilateral Eye EOMI Neck: Full Range of Motion, Normal Inspection Respiratory: No Accessory Muscle Use, No Respiratory Distress Cardiovascular: Regular Rate, Rhythm, Normal Peripheral Pulses Gastrointestinal: Normal Bowel Sounds, Non Tender, Soft Extremity: Normal Capillary Refill, Normal Inspection Neurologic/Psychiatric: Alert, Oriented x3, Other (Significant edema bilateral lower extremities with thickening of the skin and hemosiderin staining.) Skin: Normal Color, Warm/Dry Procedures/Interventions Date of ETT Placement: May 16, 2017 Time of ETT Placement: 1729 Progress/Results/Core Measures Suspected Sepsis Recent Fever Within 48 Hours: No Infection Criteria Present: None New/Unexplained Altered Menta: No Sepsis Screen: No Definite Risk SIRS Temperature: Pulse: 80 Respiratory Rate: 18 Laboratory Tests 12/07/20 11:51: White Blood Count 5.7 Blood Pressure 161 /101 Mean: 121 Laboratory Tests 12/07/20 11:51: Creatinine 0.76, Platelet Count 275, Total Bilirubin 0.3 Results/Orders Lab Results Laboratory Tests Test 12/07/20 11:51 Range/Units White Blood Count 5.7 4.3-11.0 10^3/uL Red Blood Count 4.06 L 4.30-5.52 10^6/uL Hemoglobin 10.7 L 13.3-17.7 g/dL Hematocrit 34 L 40-54 % Mean Corpuscular Volume 84 80-99 fL Mean Corpuscular Hemoglobin 26 25-34 pg Mean Corpuscular Hemoglobin Concent 32 32-36 g/dL Red Cell Distribution Width 16.4 H 10.0-14.5 % Platelet Count 275 130-400 10^3/uL Mean Platelet Volume 8.6 L 9.0-12.2 fL Immature Granulocyte % (Auto) 0 % Neutrophils (%) (Auto) 49 42-75 % Lymphocytes (%) (Auto) 38 12-44 % Monocytes (%) (Auto) 8 0-12 % Eosinophils (%) (Auto) 4 0-10 % Basophils (%) (Auto) 1 0-10 % Neutrophils # (Auto) 2.8 1.8-7.8 10^3/uL Lymphocytes # (Auto) 2.2 1.0-4.0 10^3/uL Monocytes # (Auto) 0.5 0.0-1.0 10^3/uL Eosinophils # (Auto) 0.2 0.0-0.3 10^3/uL Basophils # (Auto) 0.0 0.0-0.1 10^3/uL Immature Granulocyte # (Auto) 0.0 0.0-0.1 10^3/uL D-Dimer 2.41 H 0.00-0.49 UG/ML Sodium Level 136 135-145 MMOL/L Potassium Level 4.0 3.6-5.0 MMOL/L Chloride Level 103 98-107 MMOL/L Carbon Dioxide Level 24 21-32 MMOL/L Anion Gap 9 5-14 MMOL/L Blood Urea Nitrogen 8 7-18 MG/DL Creatinine 0.76 0.60-1.30 MG/DL Estimat Glomerular Filtration Rate > 60 BUN/Creatinine Ratio 11 Glucose Level 90 70-105 MG/DL Calcium Level 8.3 L 8.5-10.1 MG/DL Corrected Calcium 8.9 8.5-10.1 MG/DL Total Bilirubin 0.3 0.1-1.0 MG/DL Aspartate Amino Transf (AST/SGOT) 23 5-34 U/L Alanine Aminotransferase (ALT/SGPT) 15 0-55 U/L Alkaline Phosphatase 100 40-136 U/L C-Reactive Protein High Sensitivity 2.55 H 0.00-0.50 MG/DL B-Type Natriuretic Peptide 26.1 <100.0 PG/ML Total Protein 7.0 6.4-8.2 GM/DL Albumin 3.3 3.2-4.5 GM/DL My Orders Orders - BAKARI GOODSON APRN BNP (12/07/20 11:38) Ed Iv/Invasive Line Start (12/07/20 11:38) Hydromorphone Injection (Dilaudid Inject (12/07/20 12:15) Enoxaparin Injection (Lovenox Injection) (12/07/20 12:45) Medications Given in ED Current Medications Medications Dose Ordered Sig/Solitario Route Start Time Stop Time Status Last Admin Dose Admin Hydromorphone HCl 1 mg ONCE ONCE IV 12/07/20 12:15 12/07/20 12:16 DC 12/07/20 12:24 1 MG Vital Signs/I&O 12/07/20 11:16 Temp 36.4 Pulse 80 Resp 18 B/P (MAP) 161/101 (121) Pulse Ox 97 O2 Delivery Room Air Capillary Refill : Less Than 3 Seconds Blood Pressure Mean: 121 Departure Communication (Admissions) D-dimer with leg swelling, the D-dimer is likely just elevated because of the cancer. However we will give him a dose of Lovenox here, I have hand written an order for outpatient bilateral lower extremity venous ultrasounds to be done tomorrow. I will refill his pain medication. Impression Primary Impression: Lower extremity edema Additional Impression: Leg pain Disposition: HOME, SELF-CARE Condition: Stable Departure-Patient Inst. Decision time for Depature: 12:46 Referrals: [facility] (PCP/Family) Primary Care Physician Patient Instructions: Lymphedema Add. Discharge Instructions: 1. Pain medication as directed 2. Return to ER for any concerns. Return to ER hospital tomorrow to have an outpatient ultrasound of both lower extremities to evaluate for DVT. All discharge instructions reviewed with patient and/or family. Voiced understanding. Scripts Oxycodone HCl (Oxycontin) 60 Mg Tab.er.12h 60 MG PO BID, #10 TAB Prov: BAKARI GOODSON APRN 12/07/20 BAKARI GOODSON APRN Dec 07, 2020 12:14
[2020-12-07 12:15] LABS: BILIRUBIN,TOTAL 0.3 MG/DL (0.1-1.0)
[2020-12-07] MEDS ORDERED: HYDROmorphone 2 MG/ML VIAL (DILAUDID) IV ONE ×2 (12:15→13:00)
[2020-12-07 12:17] LABS: ALKALINE PHOSPHATASE 100 U/L (40-136); CREATININE SERUM 0.76 MG/DL (0.60-1.30); GFR ESTIMATED > 60
[2020-12-07 12:18] LABS: BUN/CREATININE RATIO 11
[2020-12-07 12:20] LABS: ALANINE AMINOTRANSFERASE 15 U/L (0-55)
[2020-12-07] MEDS ORDERED: ENOXAPARIN 60 MG/0.6 ML (LOVENOX) SYR SC ONE (12:45)
[2020-12-07] MEDS ORDERED: OXYC60TA7 PO (12:50)
[2020-12-07 13:49] VITALS: BP 131/79
== END 2020-12-07 13:49 | disposition home or self-care (01) ==
LOC: EDUNIT# 10:34 → ER 10:36
DX: R60.0 Localized edema (principal); M79.605 Pain in left leg; M79.604 Pain in right leg; I10 Essential (primary) hypertension; Z85.038 Personal history of other malignant neoplasm of large intestine; Z87.891 Personal history of nicotine dependence; Z88.8 Allergy status to other drugs, medicaments and biological substances; Z82.49 Family history of ischemic heart disease and other diseases of the circulatory system
CPT/HCPCS: 36415; 80053; 83880; 85025; 85379; 86141

== ENCOUNTER → 2021-01-07 | Outpatient (CLI) | payer MEDICARE ==
[~2021-01-07] MED LIST changes: +CATHETER FLUSH 10 ML SYR IV PRN; +HOLD METFORMIN - RECEIVED CONTRAST 20 ML VIAL IV SCH; +IOHEXOL 350 MG/ML 100 ML (OMNIPAQUE 350) VIAL IV ONE; -LISI-552 PO; -LISI10TA2 PO; +LISI10TA25 PO; +LISI20TA26 PO; +NS 100 ML (IVPB) BAG IV ONE; +OXYC60TA7 PO
[2021-01-07 13:10] LABS: BASOPHILS % (AUTO) 1 % (0-10); EOSINOPHILS # (AUTO) 0.3 10^3/uL (0.0-0.3); EOSINOPHILS % (AUTO) 5 % (0-10); HEMATOCRIT 33 % (40-54); LYMPHOCYTES # (AUTO) 2.3 10^3/uL (1.0-4.0); LYMPHOCYTES % (AUTO) 40 % (12-44); MEAN CORPUSCULAR HEMOGLOBIN 26 pg (25-34); MEAN CORPUSCULAR HGB CONC 31 g/dL (32-36); MEAN CORPUSCULAR VOLUME 85 fL (80-99); MEAN PLATELET VOLUME 8.8 fL (9.0-12.2); MONOCYTES # (AUTO) 0.5 10^3/uL (0.0-1.0); MONOCYTES % (AUTO) 9 % (0-12); NEUTROPHILS # (AUTO) 2.7 10^3/uL (1.8-7.8); NEUTROPHILS % (AUTO) 46 % (42-75); PLATELET COUNT 243 10^3/uL (130-400); WHITE BLOOD COUNT 5.8 10^3/uL (4.3-11.0)
[2021-01-07 13:19] LABS: ALBUMIN 3.4 GM/DL (3.2-4.5); CHLORIDE 103 MMOL/L (98-107); POTASSIUM 4.2 MMOL/L (3.6-5.0); SODIUM 138 MMOL/L (135-145)
[2021-01-07 13:21] LABS: CALCIUM 8.1 MG/DL (8.5-10.1)
[2021-01-07 13:22] LABS: GLUCOSE 99 MG/DL (70-105); TOTAL PROTEIN 7.2 GM/DL (6.4-8.2)
[2021-01-07 13:23] LABS: BILIRUBIN,TOTAL 0.3 MG/DL (0.1-1.0); CARBON DIOXIDE 29 MMOL/L (21-32)
[2021-01-07 13:25] LABS: ALKALINE PHOSPHATASE 95 U/L (40-136); CREATININE SERUM 1.07 MG/DL (0.60-1.30); GFR ESTIMATED > 60
[2021-01-07 13:26] LABS: BUN/CREATININE RATIO 11
[2021-01-07 13:28] LABS: ALANINE AMINOTRANSFERASE 17 U/L (0-55)
--- NOTE | 2021-01-07 15:01 | Diagnostic Imaging Report ---
PROCEDURE: CT chest, abdomen, and pelvis with contrast. TECHNIQUE: Multiple contiguous axial images were obtained through the chest, abdomen, and pelvis after the administration of intravenous contrast. Auto Exposure Controls were utilized during the CT exam to meet ALARA standards for radiation dose reduction. INDICATION: Malignant neoplasm of the cecum. FINDINGS: The previous CTA chest exam of 03/19/2020 noted a 2.4 x 4 cm mass in the right axilla. This had developed since the previous CT chest, abdomen, and pelvis exam of 06/05/2019. On this exam, that lymph node has increased in size and now measures 3.2 x 5.8 cm. Another much smaller 1.2 x 1.3 cm node has also developed along the inferior margin of the larger node. The small right pleural effusion seen on the previous study is again evident and essentially no different. The lungs are otherwise generally clear. There is no sign of failure, pneumonia, or a left-sided effusion. There is no parenchymal lung mass identified either. The heart size is within normal limits and stable when compared to the prior study. The aorta is not normally dilated and there is no sign of a dissection. There is no defect within the pulmonary arteries to indicate a pulmonary embolus although the pulmonary arteries were not fully opacified. There is no mediastinal or hilar adenopathy. The thyroid gland, where visualized, is unremarkable. The images through the abdomen and pelvis show that the low density lesion in the right lobe of the liver seen the prior exam measuring 2.9 x 3.6 cm is not as well visualized on this study. This area now measures 2.7 x 3.1 cm. The liver is otherwise homogeneous and not enlarged. The spleen, pancreas, kidneys, adrenals, aorta, and portal vein are unremarkable for an acute abnormality.. The vena cava filter within the vena cava seen on the prior exam of 09/16/2020 is again evident and seems stable in position. The stomach is partially filled with fluid and consequently difficult to assess. The post surgical changes involving the anterior abdominal wall seen on the prior study are again visualized and no different. There are also post surgical changes, consistent with a prior right hemicolectomy, and these too seem stable when compared to the prior exam. The periaortic adenopathy seen on the prior study is again evident. On the prior exam, the large node in this area measured 1.2 x 2.0 cm. On this study, that node now measures 1.4 x 2.3 cm. The prior study also identified bilateral inguinal adenopathy with the largest node on the right measuring 2.7 x 3.8 cm and the largest node on the left estimated to be 1.7 x 3.6 cm. Those nodes now measure 2.3 x 4.1 and 2.4 x 4.0 cm. There is also slight increased prominence of the other lymph nodes in each inguinal region. The 1.2 x 2.0 cm right iliac node and the 1.3 x 2.6 cm left pelvic sidewall node now measure 1.1 x 2.0 cm and 2.0 x 3.0 cm. There is no other pelvic mass or free fluid collection noted. The urinary bladder and prostate gland are grossly unremarkable. The bone windows show no sign of a fracture or of a destructive lesion. The post surgical changes in the lower thoracic spine seen on the prior study are again evident. Multiple healed rib fractures are also seen on the right. IMPRESSION: 1. The adenopathy in the right axilla, periaortic region, pelvis, and both inguinal regions has increased. The greatest change has occurred with the mass in the right axilla. These nodes should be considered neoplastic until proven otherwise. 2. The area of diminished density in the right lobe of the liver seen on the previous study is not as conspicuous on this exam. 3. There is no acute abnormality of the chest, abdomen, or pelvis noted. 4. There are post surgical changes involving the anterior abdominal wall and there has been a prior right hemicolectomy. There has also been fusion of the lower thoracic spine and there is an orthopedic plate and screw fixation device securing the long-standing fracture of the right femur. Dictated by: Dictated on workstation # [id number]
== END ==
LOC: RAD 12:46
PROVIDERS: ATTEND Internal Medicine Hematology & Oncology
DX: C18.0 Malignant neoplasm of cecum (principal)
CPT/HCPCS: 36415; 71260; 74177; 80053; 82378; 85025

== ENCOUNTER 2021-04-30 12:52 | Inpatient (IN) | payer MEDICARE ==
[~2021-04-30] VITALS: Ht 165.1 cm; Wt 89.0 kg
[~2021-04-30 12:52] MED LIST changes: -CATHETER FLUSH 10 ML SYR IV PRN; -HOLD METFORMIN - RECEIVED CONTRAST 20 ML VIAL IV SCH; -IOHEXOL 350 MG/ML 100 ML (OMNIPAQUE 350) VIAL IV ONE; -NS 100 ML (IVPB) BAG IV ONE
[2021-04-30] MEDS ORDERED: LACTATED RINGERS 1,000 ML IV SCH (13:15)
[2021-04-30 13:22] LABS: BASOPHILS # (AUTO) 0.1 10^3/uL (0.0-0.1); BASOPHILS % (AUTO) 1 % (0-10); EOSINOPHILS # (AUTO) 0.1 10^3/uL (0.0-0.3); EOSINOPHILS % (AUTO) 1 % (0-10); HEMATOCRIT 42 % (40-54); HEMOGLOBIN 12.8 g/dL (13.3-17.7); LYMPHOCYTES # (AUTO) 2.1 10^3/uL (1.0-4.0); LYMPHOCYTES % (AUTO) 17 % (12-44); MEAN CORPUSCULAR HEMOGLOBIN 25 pg (25-34); MEAN CORPUSCULAR HGB CONC 31 g/dL (32-36); MEAN CORPUSCULAR VOLUME 82 fL (80-99); MONOCYTES # (AUTO) 0.8 10^3/uL (0.0-1.0); MONOCYTES % (AUTO) 6 % (0-12); NEUTROPHILS % (AUTO) 75 % (42-75); PLATELET COUNT 224 10^3/uL (130-400)
--- NOTE | 2021-04-30 13:24 | ED GI ---
General Chief Complaint: Abdominal/GI Problems Stated Complaint: NAUSEA, POSSIBLE FLUIDS Source of Information: Patient Exam Limitations: No Limitations (BAKARI GOODSON APRN) History of Present Illness Date Seen by Provider: Apr 30, 2021 Time Seen by Provider: 13:23 Initial Comments By private vehicle with reports of nausea diffuse pain and general malaise. He has colon cancer with metastasis to lymph nodes. He underwent a partial colectomy and is currently undergoing chemotherapy most recently 1 week ago. Since then he has had a lot of nausea and general malaise. He has been unable to take his OxyContin at home for pain control because of the nausea. He has tried [id number] meclizine as well as his prescribed Zofran without much relief. Timing/Duration: 1 Week Severity/Quality: Moderate Location: Other Radiation: No Radiation Activities at Onset: None Associated Symptoms: Nausea/Vomiting (BAKARI GOODSON APRN) Allergies and Home Medications Allergies Coded Allergies: oxaliplatin (Verified Allergy, Severe, 12/28/17) Home Medications Amlodipine Besylate 10 Mg Tablet, 10 MG PO DAILY, (Reported) Baclofen 10 Mg Tablet, 10 MG PO TID PRN for MUSCLE SPASMS, (Reported) Carvedilol 3.125 Mg Tablet, 3.125 MG PO BID WITH MEALS, (Reported) Furosemide 20 Mg Tablet, 20 MG PO DAILY PRN for feet swelling, (Reported) Lisinopril 10 Mg Tablet, 10 MG PO DAILY@0900 Prescribed by: J CARLOS ARANDA on 06/14/17 1041 Oxycodone HCl 60 Mg Tab.er.12h, 60 MG PO BID Prescribed by: BAKARI GOODSNO on 12/07/20 1251 Oxycodone HCl/Acetaminophen 1 Each Tablet, 2 TAB PO Q6H PRN for PAIN-SEVERE, (Reported) Oxycodone HCl/Acetaminophen 1 Each Tablet, 1 TAB PO Q6H PRN for PAIN-MODERATE Prescribed by: LIAM GILLETTE on 05/20/20 0942 [Vitamin B17] , 1 TAB PO DAILY, (Reported) Patient Home Medication List Home Medication List Reviewed: Yes (BAKARI GOODSON APRN) Review of Systems Review of Systems Constitutional: see HPI; No chills, No fever EENTM: No Symptoms Reported Respiratory: No Symptoms Reported Cardiovascular: No Symptoms Reported Gastrointestinal: See HPI; Denies Abdominal Pain; Nausea Genitourinary: No Symptoms Reported Musculoskeletal: no symptoms reported Skin: no symptoms reported Psychiatric/Neurological: No Symptoms Reported Endocrine: No Symptoms Reported Hematologic/Lymphatic: No Symptoms Reported (BAKARI GOODSON APRN) Past Uceljtb-Gmrtax-Pjnjgp Hx Patient Social History Alcohol Beverage of Choice: Beer Drug of Choice: MARIJUANA Type Used: Cigarettes Former Smoker, Quit: March 28, 2017 Recent Hopitalizations: No (BAKARI GOODSON APRN) Immunizations Up To Date Tetanus Booster (TDap): Unknown Date of Pneumonia Vaccine: Aug 30, 2015 (BAKARI GOODSON APRN) Seasonal Allergies Seasonal Allergies: Yes (BAKARI GOODSON APRN) Past Medical History Surgeries: Yes (COLONOSCOPY, COLON RESECTION, ligament surgery on leg) Abdominal, Tonsillectomy Respiratory: Yes Currently Using CPAP: No Currently Using BIPAP: No Cardiac: Yes Hypertension Neurological: No Reproductive Disorders: No Sexually Transmitted Disease: No HIV/AIDS: No Genitourinary: No Gastrointestinal: Yes (CECAL MASS, RLQ PAIN) Hemorrhoids Musculoskeletal: Yes Arthritis, Back Injury Endocrine: No HEENT: Yes (GLASSES) Loss of Vision: Bilateral Hearing Impairment: Denies Cancer: Yes Colon What Type of Treatment Did You: Chemotherapy, Surgical Intervention Psychosocial: No Integumentary: No Blood Disorders: No Adverse Reaction/Blood Tranf: No (BAKARI GOODSON APRN) Family Medical History Patient reports no known family medical history. Heart Disease, Hypertension (BAKARI GOODSON APRN) Physical Exam Vital Signs Vital Signs - First Documented 04/30/21 12:55 Temp 36.7 Pulse 86 Resp 20 B/P (MAP) 98/67 (77) Pulse Ox 99 (ALFONSO NARANJO MD) Vital Signs Capillary Refill : (BAKARI GOODSON APRN) Height/Weight/BMI Height: 5'5.00" Weight: 236lbs. 0.0oz. 107.745864ya; 41.00 BMI Method:Estimated General Appearance: WD/WN, no apparent distress Neck: non-tender, full range of motion Respiratory: no respiratory distress, no accessory muscle use Cardiovascular: regular rate, rhythm Gastrointestinal: normal bowel sounds, soft; No tenderness Extremities: normal range of motion, non-tender Neurologic/Psychiatric: alert, normal mood/affect, oriented x 3 Skin: normal color, warm/dry (BAKARI GOODSON APRN) Procedures/Interventions Date of ETT Placement: May 16, 2017 Time of ETT Placement: 1729 (BAKARI GOODSON APRN) Progress/Results/Core Measures Results/Orders Lab Results Laboratory Tests Test 04/30/21 13:10 Range/Units White Blood Count 12.0 H 4.3-11.0 10^3/uL Red Blood Count 5.12 4.30-5.52 10^6/uL Hemoglobin 12.8 L 13.3-17.7 g/dL Hematocrit 42 40-54 % Mean Corpuscular Volume 82 80-99 fL Mean Corpuscular Hemoglobin 25 25-34 pg Mean Corpuscular Hemoglobin Concent 31 L 32-36 g/dL Red Cell Distribution Width 19.2 H 10.0-14.5 % Platelet Count 224 130-400 10^3/uL Mean Platelet Volume 9.0 9.0-12.2 fL Immature Granulocyte % (Auto) 0 % Neutrophils (%) (Auto) 75 42-75 % Lymphocytes (%) (Auto) 17 12-44 % Monocytes (%) (Auto) 6 0-12 % Eosinophils (%) (Auto) 1 0-10 % Basophils (%) (Auto) 1 0-10 % Neutrophils # (Auto) 9.0 H 1.8-7.8 10^3/uL Lymphocytes # (Auto) 2.1 1.0-4.0 10^3/uL Monocytes # (Auto) 0.8 0.0-1.0 10^3/uL Eosinophils # (Auto) 0.1 0.0-0.3 10^3/uL Basophils # (Auto) 0.1 0.0-0.1 10^3/uL Immature Granulocyte # (Auto) 0.0 0.0-0.1 10^3/uL Prothrombin Time 17.2 H 12.2-14.7 SEC INR Comment 1.4 0.8-1.4 Sodium Level 126 L 135-145 MMOL/L Potassium Level 7.1 #*H 3.6-5.0 MMOL/L Chloride Level 101 98-107 MMOL/L Carbon Dioxide Level 16 L 21-32 MMOL/L Anion Gap 9 5-14 MMOL/L Blood Urea Nitrogen 64 H 7-18 MG/DL Creatinine 2.13 H 0.60-1.30 MG/DL Estimat Glomerular Filtration Rate 32 BUN/Creatinine Ratio 30 Glucose Level 109 H 70-105 MG/DL Uric Acid 9.3 H 2.6-7.2 MG/DL Calcium Level 8.9 8.5-10.1 MG/DL Corrected Calcium 9.6 8.5-10.1 MG/DL Phosphorus Level 5.3 H 2.3-4.7 MG/DL Total Bilirubin 0.2 0.1-1.0 MG/DL Aspartate Amino Transf (AST/SGOT) 22 5-34 U/L Alanine Aminotransferase (ALT/SGPT) 18 0-55 U/L Alkaline Phosphatase 178 H 40-136 U/L Total Protein 7.9 6.4-8.2 GM/DL Albumin 3.1 L 3.2-4.5 GM/DL Lipase 24 8-78 U/L (ALFONSO NARANJO MD) Medications Given in ED Current Medications Medications Dose Ordered Sig/Solitario Route Start Time Stop Time Status Last Admin Dose Admin Fentanyl Citrate 75 mcg ONCE ONCE IVP 04/30/21 13:30 04/30/21 13:31 DC 04/30/21 13:28 75 MCG Promethazine HCl 12.5 mg ONCE ONCE IVP 04/30/21 13:30 04/30/21 13:31 DC 04/30/21 13:28 12.5 MG Scopolamine 1.5 mg ONCE ONCE TD 04/30/21 13:30 04/30/21 13:31 DC 04/30/21 13:28 1.5 MG (ALFONSO NARANJO MD) Vital Signs/I&O 04/30/21 12:55 Temp 36.7 Pulse 86 Resp 20 B/P (MAP) 98/67 (77) Pulse Ox 99 (ALFONSO NARANJO MD) Departure Communication (Admissions) EKG done at 1403 shows normal sinus rhythm rate of [address] segment changes no ectopy normal intervals with a QRS duration of 105 ms QTC of 417 ms. There is no evidence of a peaked T waves as would be expected with the hyperkalemia. Given the absence of EKG changes I did not order calcium but I did order 2 L of IV fluids, insulin plus dextrose, Kayexalate. Will admit aggressively hydrate at 175 mL/h [id number] with the cancer center [facility] where the patient follows for chemotherapy out of [place]. They will be faxing us his regimen and most recent progress note. (BAKARI GOODSON APRN) Impression Primary Impression: Dehydration Additional Impressions: Hyperkalemia Nausea & vomiting Colon cancer Disposition: ADMITTED INPATIENT Condition: Stable Admissions Decision to Admit Reason: Admit from ER (General) Decision to Admit/Date: Apr 30, 2021 Time/Decision to Admit Time: 14:11 (BAKARI GOODSON APRN) Departure-Patient Inst. Referrals: [facility] [place] Primary Care Physician Attending physician note: I was physically present in the emergency department during the care of this patient as the attending physician on duty, but I was not directly involved in the care or decision-making for this patient. (ALFONSO NARANJO MD) BAKARI GOODSON APRN Apr 30, 2021 13:24 ALFONSO NARANJO MD Apr 30, 2021 19:30
[2021-04-30] MEDS ORDERED: SCOPOLAMINE 1.5 MG (TRANSDERM-SCOP) PATCH TD ONE (13:30)
[2021-04-30] MEDS ORDERED: PROMETHAZINE INJ 25 MG/ML (PHENERGAN) AMP IVP ONE ×2 (13:30→15:00)
[2021-04-30] MEDS ORDERED: fentaNYL INJ 100 MCG/2 ML AMP IVP ONE (13:30)
[2021-04-30 13:35] LABS: ALBUMIN 3.1 GM/DL (3.2-4.5); INR 1.4 (0.8-1.4); PROTHROMBIN TIME PATIENT 17.2 SEC (12.2-14.7)
[2021-04-30 13:36] LABS: CALCIUM 8.9 MG/DL (8.5-10.1)
[2021-04-30 13:38] LABS: TOTAL PROTEIN 7.9 GM/DL (6.4-8.2)
[2021-04-30 13:39] LABS: BILIRUBIN,TOTAL 0.2 MG/DL (0.1-1.0)
[2021-04-30 13:41] LABS: CREATININE SERUM 2.13 MG/DL (0.60-1.30)
[2021-04-30 13:58] LABS: POTASSIUM 7.1 MMOL/L (3.6-5.0)
[2021-04-30] MEDS ORDERED: inSUlin (REGULAR) HUMAN 1 UNIT/0.01 ML (CHARGE PER UNIT) IV ONE (14:00)
[2021-04-30] MEDS ORDERED: morphine INJ 4 MG/ML 1 ML (VIAL/SYRINGE) IVP ONE (14:00)
[2021-04-30] MEDS ORDERED: DEXTROSE 50% 50 ML (IMS) SYR IV ONE (14:00)
[2021-04-30] MEDS ORDERED: SOD POLYSTYRENE 30 GM/120 ML (KAYEXALATE) BULK BOTTLE PO ONE (14:00)
[2021-04-30] MEDS ORDERED: SOD POLYSTERENE 15 GM/60 ML (KAYEXALATE) UNIT DOSE PO ONE (14:15)
[2021-04-30] MEDS ORDERED: morphine INJ 10 MG/ML 1ML (SYR OR VIAL) IVP STA (14:15)
[2021-04-30 14:31] LABS: PHOSPHORUS 5.3 MG/DL (2.3-4.7)
[2021-04-30 14:33] LABS: URIC ACID 9.3 MG/DL (2.6-7.2)
[2021-04-30 16:00] VITALS: BP 125/79
[2021-04-30] MEDS ORDERED: PROMETHAZINE INJ 25 MG/ML (PHENERGAN) AMP IV PRN (16:15)
[2021-04-30] MEDS ORDERED: ONDANSETRON 4 MG/2 ML (SDV) Z0FRAN IV PRN (16:15)
[2021-04-30] MEDS ORDERED: CATHETER FLUSH 10 ML SYR IV PRN (16:15)
--- NOTE | 2021-04-30 16:18 | History & Physical ---
HPI History of Present Illness: 60 yo male came to ER due to fatigue that started last Tuesday and was having trouble keeping food and fluids down. [place] like food was getting stuck in esophagus and that made him hesitant to eat and drink. He had chemotherapy scheduled for Tuesday and after that he felt worse. He has not kept down any solid food since this started, just drinking powerade. He has history of metastatic colon cancer. He lives with his brother who had a suspected viral infection with stomach symptoms last weekend. He has severe swelling and weeping of legs which has been chronic. Source: patient, family Date seen by provider: Apr 30, 2021 Time Seen by Provider: 16:30 Attending Physician Steffanie Mobley MD [facility] Consult Date of Admission Apr 30, 2021 at 13:55 Home Medications Home Medications Reviewed patient Home Medication Reconciliation performed by pharmacy medication reconciliations er medical technician and/or nursing. Patients Allergies have been reviewed. Allergies Coded Allergies: oxaliplatin (Verified Allergy, Severe, 12/28/17) DPI-Pkhkmq-[id number] Hx Patient Social History Drug of Choice: MARIJUANA Smoking Status: Current Everyday Smoker Recent Hopitalizations: No Alcohol Use?: No Tobacco type used: Cigarettes Have you traveled recently?: No Immunizations Up To Date Tetanus Booster (TDap): Unknown Date of Pneumonia Vaccine: Aug 30, 2015 Past Medical History PMHx: Metastatic colon cancer HTN Hypothyroidism Lymphedema SurgHx: Colon resection IVC filter Orthopedic surgery Family Medical History Significant Family History: Heart Disease, Hypertension Review of Systems (CHC) Constitutional: malaise, other (unable to obtain due to patient condition) EENTM: other (difficulty swallowing) Cardiovascular: no symptoms reported Gastrointestinal: see HPI Genitourinary: no symptoms reported Musculoskeletal: no symptoms reported Skin: see HPI Reviewed Test Results Reviewed Test Results Lab Laboratory Tests Test 04/30/21 13:10 Range/Units White Blood Count 12.0 H 4.3-11.0 10^3/uL Red Blood Count 5.12 4.30-5.52 10^6/uL Hemoglobin 12.8 L 13.3-17.7 g/dL Hematocrit 42 40-54 % Mean Corpuscular Volume 82 80-99 fL Mean Corpuscular Hemoglobin 25 25-34 pg Mean Corpuscular Hemoglobin Concent 31 L 32-36 g/dL Red Cell Distribution Width 19.2 H 10.0-14.5 % Platelet Count 224 130-400 10^3/uL Mean Platelet Volume 9.0 9.0-12.2 fL Immature Granulocyte % (Auto) 0 % Neutrophils (%) (Auto) 75 42-75 % Lymphocytes (%) (Auto) 17 12-44 % Monocytes (%) (Auto) 6 0-12 % Eosinophils (%) (Auto) 1 0-10 % Basophils (%) (Auto) 1 0-10 % Neutrophils # (Auto) 9.0 H 1.8-7.8 10^3/uL Lymphocytes # (Auto) 2.1 1.0-4.0 10^3/uL Monocytes # (Auto) 0.8 0.0-1.0 10^3/uL Eosinophils # (Auto) 0.1 0.0-0.3 10^3/uL Basophils # (Auto) 0.1 0.0-0.1 10^3/uL Immature Granulocyte # (Auto) 0.0 0.0-0.1 10^3/uL Prothrombin Time 17.2 H 12.2-14.7 SEC INR Comment 1.4 0.8-1.4 Sodium Level 126 L 135-145 MMOL/L Potassium Level 7.1 #*H 3.6-5.0 MMOL/L Chloride Level 101 98-107 MMOL/L Carbon Dioxide Level 16 L 21-32 MMOL/L Anion Gap 9 5-14 MMOL/L Blood Urea Nitrogen 64 H 7-18 MG/DL Creatinine 2.13 H 0.60-1.30 MG/DL Estimat Glomerular Filtration Rate 32 BUN/Creatinine Ratio 30 Glucose Level 109 H 70-105 MG/DL Uric Acid 9.3 H 2.6-7.2 MG/DL Calcium Level 8.9 8.5-10.1 MG/DL Corrected Calcium 9.6 8.5-10.1 MG/DL Phosphorus Level 5.3 H 2.3-4.7 MG/DL Total Bilirubin 0.2 0.1-1.0 MG/DL Aspartate Amino Transf (AST/SGOT) 22 5-34 U/L Alanine Aminotransferase (ALT/SGPT) 18 0-55 U/L Alkaline Phosphatase 178 H 40-136 U/L Total Protein 7.9 6.4-8.2 GM/DL Albumin 3.1 L 3.2-4.5 GM/DL Lipase 24 8-78 U/L Physical Exam-(CHC) Physical Exam Vital Signs VS - Last 72 Hours, by Label 04/30/21 04/30/21 04/30/21 04/30/21 12:55 14:42 15:16 15:30 Temp 36.7 Pulse 86 95 95 Resp 20 20 20 B/P (MAP) 98/67 (77) 108/57 (74) 108/57 (74) Pulse Ox 99 100 100 O2 Delivery Room Air 04/30/21 04/30/21 04/30/21 04/30/21 16:00 19:00 20:00 20:25 Temp 36.0 37.0 Pulse 104 100 103 Resp 16 20 B/P (MAP) 125/79 (94) 117/73 (88) Pulse Ox 100 97 O2 Delivery Room Air Capillary Refill : Less Than 3 Seconds General Appearance: mild distress Respiratory: lungs clear, normal breath sounds Cardiovascular: no murmur, tachycardia Gastrointestinal: normal bowel sounds, non tender, soft Extremities: pedal edema (with thick crusted skin and oozing and foul smell) Assessment/Plan Assessment/Plan Admission Status: Inpatient Order (span 2 midnights) Reason for Inpatient Admission: Severe dehydration with renal insufficiency (1) Hyperkalemia Status: Acute Assessment & Plan: Over 7 on admit, no EKG changes, given Kayexalate, insulin and D50 in ER. Recheck in 4 hours. (2) Esophageal dysphagia Status: Acute Assessment & Plan: If still having swallowing difficulties after volume status improved, may need further studies. He is not sure how aggressive he would want be about this. (3) Acute kidney insufficiency Status: Acute Assessment & Plan: Secondary to dehydration, continue NS @ 175 (4) Hyponatremia Status: Acute Assessment & Plan: Suspect volume depletion, NS @ 175 mls/hr. (5) Lymphedema Status: Chronic Assessment & Plan: Chronic and stable per his report, has been treated with abx in the past, but are foul smelling and with some erythema, consider antibiotic therapy if clinical status does not improve with IVF. (6) Hypertension Status: Acute Assessment & Plan: Blood pressure running low with volume depletion. Hold anti- hypertensives. Qualifiers: Qualified Codes: I10 - Essential (primary) hypertension (7) Carcinoma of colon metastatic to multiple sites Status: Chronic (8) Hypothyroid Status: Chronic (9) Nausea & vomiting Status: Acute (10) Dehydration Status: Acute (11) DVT prophylaxis Status: Acute (12) Goals of care, counseling/discussion Status: Acute Assessment & Plan: He stated he would only want CPR or intubation if he was not going to be a "vegetable". Discussed his underlying conditions and the small chances of full recovery to current impaired baseline status with a code event and he stated he would prefer a DNR. He states "I think I'm almost done", and that he has been thinking about the end recently, and isn't sure if he wants to be in the hospital or if he should be getting treatment at all. Will treat as above overnight and discuss again in the morning with family as well. STEFFANIE MOBLEY MD Apr 30, 2021 16:18
[2021-04-30] MEDS: NS IV 1000 ML 1,000 ML IV SCH ×2 (16:47→22:01)
[2021-04-30] MEDS: morphine INJ 4 MG/ML 1 ML (VIAL/SYRINGE) IV PRN ×2 (17:29→22:29)
[2021-04-30 20:00] VITALS: BP 117/73
[2021-04-30 20:43] LABS: POTASSIUM 4.4 MMOL/L (3.6-5.0)
[2021-04-30 20:44] LABS: CALCIUM 7.7 MG/DL (8.5-10.1)
[2021-04-30 21:49] LABS: CREATININE SERUM 1.64 MG/DL (0.60-1.30)
[2021-04-30] MEDS ORDERED: OXYC60TA7 PO (22:33)
[2021-04-30] MEDS ORDERED: OXYC10TA7 PO (22:33)
[2021-04-30] MEDS ORDERED: ONDA8TAB13 PO (22:33)
[2021-04-30] MEDS ORDERED: LISI20TA26 PO (22:35)
[2021-04-30] MEDS ORDERED: REGO40TA PO (22:35)
[2021-04-30] MEDS ORDERED: AMLO5TAB4 PO (22:35)
[2021-04-30] MEDS ORDERED: ALBU2.5V4 INH (22:37)
[2021-04-30] MEDS ORDERED: ENOXAPARIN 40 MG/0.4 ML (LOVENOX) SYR SQ SCH (23:00)
[2021-04-30 23:59] VITALS: BP 108/70
[2021-05-01] MEDS: ENOXAPARIN 40 MG/0.4 ML (LOVENOX) SYR SQ SCH ×2 (00:13→20:28)
[2021-05-01] MEDS: morphine INJ 4 MG/ML 1 ML (VIAL/SYRINGE) IV PRN ×2 (01:29→06:51)
[2021-05-01] MEDS: NS IV 1000 ML 1,000 ML IV SCH ×4 (03:48→23:26)
[2021-05-01 03:56] VITALS: BP 114/67
[2021-05-01 04:51] LABS: POTASSIUM 4.3 MMOL/L (3.6-5.0)
[2021-05-01 04:52] LABS: CALCIUM 7.5 MG/DL (8.5-10.1)
[2021-05-01 04:57] LABS: CREATININE SERUM 1.28 MG/DL (0.60-1.30)
[2021-05-01 04:59] LABS: BASOPHILS # (AUTO) 0.1 10^3/uL (0.0-0.1); BASOPHILS % (AUTO) 1 % (0-10); EOSINOPHILS # (AUTO) 0.1 10^3/uL (0.0-0.3); EOSINOPHILS % (AUTO) 0 % (0-10); HEMATOCRIT 33 % (40-54); HEMOGLOBIN 9.9 g/dL (13.3-17.7); LYMPHOCYTES % (AUTO) 14 % (12-44); MEAN CORPUSCULAR HEMOGLOBIN 25 pg (25-34); MEAN CORPUSCULAR HGB CONC 31 g/dL (32-36); MEAN CORPUSCULAR VOLUME 81 fL (80-99); MEAN PLATELET VOLUME 9.2 fL (9.0-12.2); MONOCYTES # (AUTO) 1.2 10^3/uL (0.0-1.0); MONOCYTES % (AUTO) 8 % (0-12); NEUTROPHILS % (AUTO) 77 % (42-75); PLATELET COUNT 190 10^3/uL (130-400); WHITE BLOOD COUNT 14.4 10^3/uL (4.3-11.0)
[2021-05-01 05:41] LABS: LYMPHOCYTES % (MANUAL) 12 %; MONOCYTES % (MANUAL) 8 %; NEUTROPHILS % (MANUAL) 80 %; RBC MORPH NORMAL
[2021-05-01 08:00] VITALS: BP 107/57
[2021-05-01] MEDS ORDERED: CALCIUM CARBONATE 500 MG (TUMS) TAB.CHEW PO PRN (08:00)
[2021-05-01] MEDS: oxyCODONE ER 20 MG (OxyCONTIN CR) TAB PO SCH ×3 (09:12→20:28)
[2021-05-01] MEDS: CLINDAMYCIN 600 MG/50 ML IVPB 50 ML IV SCH ×3 (09:12→23:14)
[2021-05-01] MEDS: PANTOPRAZOLE 40 MG (PROTONIX) TAB PO SCH (09:12)
--- NOTE | 2021-05-01 11:02 | Progress Note ---
Subjective Subjective/Events-last exam Afebrile, feeling a little better. Has been drinking a lot more fluid. Is tired. Objective Exam Last Set of Vital Signs Vital Signs Date Time Temp Pulse Resp B/P (MAP) Pulse Ox O2 Delivery O2 Flow Rate FiO2 05/01/21 08:00 Room Air 05/01/21 08:00 36.9 87 22 107/57 (74) 97 Capillary Refill : Less Than 3 Seconds I&O Intake and Output 05/01/21 00:00 Intake Total 2500 ml Balance 2500 ml Intake Oral 500 ml IV Total 2000 ml # Voids 1 # Bowel Movements 1 Daily Weight Change No General: Other (fatigued, falls asleep intermittently in conversation) Lungs: Clear to Auscultation, Normal Air Movement Heart: Regular Rate, No Murmurs Abdomen: Normal Bowel Sounds, Soft Extremities: Other (thickened and cracking skin on both lower extremities, erythema to right ankle area) Neuro: Normal Speech Psych/Mental Status: Mental Status NL Results/Procedures Lab Laboratory Tests 04/30/21 13:10: White Blood Count 12.0H, Red Blood Count 5.12, Hemoglobin 12.8L, Hematocrit 42, Mean Corpuscular Volume 82, Mean Corpuscular Hemoglobin 25, Mean Corpuscular Hemoglobin Concent 31L, Red Cell Distribution Width 19.2H, Platelet Count 224, Mean Platelet Volume 9.0, Immature Granulocyte % (Auto) 0, Neutrophils (%) (Auto) 75, Lymphocytes (%) (Auto) 17, Monocytes (%) (Auto) 6, Eosinophils (%) (Auto) 1, Basophils (%) (Auto) 1, Neutrophils # (Auto) 9.0H, Lymphocytes # (Auto) 2.1, Monocytes # (Auto) 0.8, Eosinophils # (Auto) 0.1, Basophils # (Auto) 0.1, Immature Granulocyte # (Auto) 0.0, Prothrombin Time 17.2H, INR Comment 1.4, Sodium Level 126L, Potassium Level 7.1#*H, Chloride Level 101, Carbon Dioxide Level 16L, Anion Gap 9, Blood Urea Nitrogen 64H, Creatinine 2.13H, Estimat Glomerular Filtration Rate 32, BUN/Creatinine Ratio 30, Glucose Level 109H, Uric Acid 9.3H, Calcium Level 8.9, Corrected Calcium 9.6, Phosphorus Level 5.3H, Total Bilirubin 0.2, Aspartate Amino Transf (AST/SGOT) 22, Alanine Aminotransferase (ALT/SGPT) 18, Alkaline Phosphatase 178H, Total Protein 7.9, Albumin 3.1L, Lipase 24 04/30/21 20:20: Sodium Level 129L, Potassium Level 4.4, Chloride Level 105, Carbon Dioxide Level 15L, Anion Gap 9, Blood Urea Nitrogen 53H, Creatinine 1.64H, Estimat Glomerular Filtration Rate 43, BUN/Creatinine Ratio 32, Glucose Level 107H, Calcium Level 7.7L 05/01/21 03:55: White Blood Count 14.4H, Red Blood Count 4.00L, Hemoglobin 9.9#L, Hematocrit 33L , Mean Corpuscular Volume 81, Mean Corpuscular Hemoglobin 25, Mean Corpuscular Hemoglobin Concent 31L, Red Cell Distribution Width 19.1H, Platelet Count 190, Mean Platelet Volume 9.2, Immature Granulocyte % (Auto) 0, Neutrophils (%) (Auto) 77H, Lymphocytes (%) (Auto) 14, Monocytes (%) (Auto) 8, Eosinophils (%) (Auto) 0, Basophils (%) (Auto) 1, Neutrophils # (Auto) 11.0H, Lymphocytes # (Auto) 2.0, Monocytes # (Auto) 1.2H, Eosinophils # (Auto) 0.1, Basophils # (Auto) 0.1, Immature Granulocyte # (Auto) 0.1, Sodium Level 129L, Potassium Level 4.3, Chloride Level 105, Carbon Dioxide Level 14L, Anion Gap 10, Blood Urea Nitrogen 43H, Creatinine 1.28, Estimat Glomerular Filtration Rate 57, BUN/Creatinine Ratio 34, Glucose Level 97, Calcium Level 7.5L, Neutrophils % (Manual) 80, Lymphocytes % (Manual) 12, Monocytes % (Manual) 8, Blood Morphology Comment NORMAL Assessment/Plan Assessment/Plan (1) Hyperkalemia Status: Resolved Assessment & Plan: Over 7 on admit, no EKG changes, given Kayexalate, insulin and D50 in ER. Recheck in 4 hours. 05/01 resolved. (2) Esophageal dysphagia Status: Acute Assessment & Plan: If still having swallowing difficulties after volume status improved, may need further studies. He is not sure how aggressive he would want be about this. (3) Acute kidney insufficiency Status: Resolved Assessment & Plan: Secondary to dehydration, continue NS @ 175 (4) Hyponatremia Status: Acute Assessment & Plan: Suspect volume depletion, NS @ 175 mls/hr. Improving (5) Lymphedema Status: Chronic Assessment & Plan: Chronic and stable per his report, has been treated with abx in the past, but are foul smelling and with some erythema, consider antibiotic therapy if clinical status does not improve with IVF. (6) Hypertension Status: Acute Assessment & Plan: Blood pressure running low with volume depletion. Hold anti- hypertensives. Qualifiers: Qualified Codes: I10 - Essential (primary) hypertension (7) Carcinoma of colon metastatic to multiple sites Status: Chronic (8) Hypothyroid Status: Chronic (9) Nausea & vomiting Status: Acute (10) Dehydration Status: Acute (11) Cellulitis Status: Acute Assessment & Plan: Given worsening leukocytosis and some acute on chronic erythema of leg, will start clindamcyin. Qualifiers: (12) DVT prophylaxis Status: Acute (13) Goals of care, counseling/discussion Status: Acute Assessment & Plan: He stated he would only want CPR or intubation if he was not going to be a "vegetable". Discussed his underlying conditions and the small chances of full recovery to current impaired baseline status with a code event and he stated he would prefer a DNR. He states "I think I'm almost done", and that he has been thinking about the end recently, and isn't sure if he wants to be in the hospital or if he should be getting treatment at all. Will treat as above overnight and discuss again in the morning with family as well. 05/01 met with patient and daughters and sister, he states he thinks he should go home with hospice if he doesn't get better. Clarified with him that if his acute episode improves, would still consider hospice, and he agrees he would prefer hospice services and stopping chemotherapy at this time. His sister works with [employer] and is going to help facilitate setting up. STEFFANIE KNOTT MD May 01, 2021 11:02
[2021-05-01 12:07] VITALS: BP 109/58
[2021-05-01 16:00] VITALS: BP 110/69
[2021-05-01 20:00] VITALS: BP 109/65
[2021-05-02] VITALS: BP 105/64
[2021-05-02 04:00] VITALS: BP 101/68
[2021-05-02 05:29] LABS: HEMATOCRIT 29 % (40-54); HEMOGLOBIN 8.8 g/dL (13.3-17.7); MEAN CORPUSCULAR HEMOGLOBIN 25 pg (25-34); MEAN CORPUSCULAR HGB CONC 30 g/dL (32-36); MEAN CORPUSCULAR VOLUME 82 fL (80-99); MEAN PLATELET VOLUME 9.8 fL (9.0-12.2); PLATELET COUNT 182 10^3/uL (130-400); WHITE BLOOD COUNT 8.8 10^3/uL (4.3-11.0)
[2021-05-02 05:53] LABS: CALCIUM 7.2 MG/DL (8.5-10.1)
[2021-05-02 05:58] LABS: CREATININE SERUM 1.29 MG/DL (0.60-1.30)
[2021-05-02 07:25] VITALS: BP 118/66
[2021-05-02] MEDS: CLINDAMYCIN 600 MG/50 ML IVPB 50 ML IV SCH (08:31)
[2021-05-02] MEDS: oxyCODONE ER 20 MG (OxyCONTIN CR) TAB PO SCH (08:32)
[2021-05-02] MEDS: PANTOPRAZOLE 40 MG (PROTONIX) TAB PO SCH (08:32)
--- NOTE | 2021-05-02 10:57 | Discharge Summary ---
Diagnosis/Chief Complaint Date of Admission Apr 30, 2021 at 13:55 Date of Discharge 05/02/21 Admission Diagnosis Admission Diagnosis See Problem List Discharge Diagnosis See Below Problems/Diagnosis: (1) Hyperkalemia Assessment & Plan: Over 7 on admit, no EKG changes, given Kayexalate, insulin and D50 in ER. Recheck in 4 hours. 05/01 resolved. Status: Resolved Resolution Date/Time: 05/01/21 @ 11:00 (2) Esophageal dysphagia Assessment & Plan: If still having swallowing difficulties after volume status improved, may need further studies. He is not sure how aggressive he would want be about this. 05/02: dysphagia has improved, tolerating PO solids and liquids Status: Acute (3) Acute kidney insufficiency Assessment & Plan: Secondary to dehydration, continue NS @ 175 Status: Resolved Resolution Date/Time: 05/01/21 @ 11:00 (4) Hyponatremia Assessment & Plan: Suspect volume depletion, NS @ 175 mls/hr. Improving Status: Acute (5) Lymphedema Assessment & Plan: Chronic and stable per his report, has been treated with abx in the past, but are foul smelling and with some erythema, consider antibiotic therapy if clinical status does not improve with IVF. Status: Chronic (6) Hypertension Assessment & Plan: Blood pressure running low with volume depletion. Hold anti- hypertensives. Qualifiers: Qualified Codes: I10 - Essential (primary) hypertension Status: Acute (7) Carcinoma of colon metastatic to multiple sites Status: Chronic (8) Hypothyroid Status: Chronic (9) Nausea & vomiting Status: Resolved Resolution Date/Time: 05/02/21 @ 10:53 (10) Dehydration Status: Resolved Resolution Date/Time: 05/02/21 @ 10:54 (11) Cellulitis Assessment & Plan: Given worsening leukocytosis and some acute on chronic erythema of leg, will start clindamcyin. Qualifiers: Status: Acute (12) DVT prophylaxis Status: Acute (13) Goals of care, counseling/discussion Assessment & Plan: He stated he would only want CPR or intubation if he was not going to be a "vegetable". Discussed his underlying conditions and the small chances of full recovery to current impaired baseline status with a code event and he stated he would prefer a DNR. He states "I think I'm almost done", and that he has been thinking about the end recently, and isn't sure if he wants to be in the hospital or if he should be getting treatment at all. Will treat as above overnight and discuss again in the morning with family as well. 05/01 met with patient and daughters and sister, he states he thinks he should go home with hospice if he doesn't get better. Clarified with him that if his acute episode improves, would still consider hospice, and he agrees he would prefer hospice services and stopping chemotherapy at this time. His sister works with [employer] and is going to help facilitate setting up. Status: Acute Chief Complaint/HPI Chief Complaint/HPI 60 yo male came to ER due to fatigue that started last Tuesday and was having trouble keeping food and fluids down. [place] like food was getting stuck in esophagus and that made him hesitant to eat and drink. He had chemotherapy scheduled for Tuesday and after that he felt worse. He has not kept down any solid food since this started, just drinking powerade. He has history of metastatic colon cancer. He lives with his brother who had a suspected viral infection with stomach symptoms last weekend. He has severe swelling and weeping of legs which has been chronic. Discharge Summary-Simple/Stand Consultations Discharge Physical Examination Allergies: Coded Allergies: oxaliplatin (Verified Allergy, Severe, 12/28/17) Vitals & I&Os Vital Sign - Last 12Hours Date Time Temp Pulse Resp B/P (MAP) Pulse Ox O2 Delivery O2 Flow Rate FiO2 05/02/21 07:25 36.9 91 18 118/66 (83) 95 05/02/21 04:00 Room Air Intake and Output 05/02/21 00:00 Intake Total 1500 ml Output Total 300 ml Balance 1200 ml General Appearance: Alert, Oriented X3, Cooperative, No Acute Distress Respiratory: Clear to Auscultation, Normal Air Movement Cardiovascular: Regular Rate, No Murmurs Abdominal: Soft, No Tenderness Extremities: Other (Chronic Lymphedema with crusting, moderate ttp, weeping) Neuro: Normal Speech, Sensation Intact Hospital Course Was the Problem List Reviewed?: Yes See final discharge diagnosis. Discussion & Recommendations 60 yo M with rectal cancer on chemo, that presented with multiple severe electrolyte imbalances. Found to be profoundly dehydrated. After IVFs patient began to feel much better and was able to start taking fluids and food PO. Hypokalemia and renal insufficiency resolved at time of discharge. Will have close f.u with [facility] on . Discharge Condition at discharge Guarded Instructions to patient/family Please see electronic discharge instructions given to patient. Discharge Medications Reviewed and agree with Discharge Medication list on patient's Discharge Instruction sheet Copy Copies To 1: Tang JIN HOLLY R MD May 02, 2021 10:57
[2021-05-02] MEDS ORDERED: CLIN300C12 PO (11:01)
[2021-05-02] MEDS ORDERED: LISI20TA26 PO (11:01)
[2021-05-02] MEDS ORDERED: PANT40TA52 PO (11:01)
--- NOTE | 2021-05-02 11:03 | Discharge Summary ---
Discharge [facility] Reconcile Patient Problems Problems Reviewed?: Yes Discharge Medications New, Converted or Re-Newed RX: Transmitted to Pharmacy New Medications: Clindamycin HCl (Clindamycin HCl) 300 Mg Capsule 300 MG PO TID, #15 CAP Pantoprazole Sodium (Pantoprazole Sodium) 40 Mg Tablet.dr 40 MG PO DAILY, #30 TAB Changed Medications: Lisinopril (Lisinopril) 20 Mg Tablet 20 MG PO DAILY, #30 TAB (Medication details modified) Hold until seen by PCP and blood pressure check Continued Medications: Albuterol Sulfate (Albuterol Sulfate) 2.5 Mg/3 Ml Vial.neb 2.5 MG INH Q6H PRN for SHORTNESS OF BREATH, EA Carvedilol (Carvedilol) 3.125 Mg Tablet 3.125 MG PO BID WITH MEALS, TAB Furosemide (Furosemide) 20 Mg Tablet 20 MG PO DAILY PRN for feet swelling, TAB Ondansetron (Ondansetron Odt) 8 Mg Tab.rapdis 8 MG PO DAILY PRN for NAUSEA-1ST LINE Oxycodone HCl (Oxycodone HCl) 10 Mg Tablet 10 MG PO Q6H PRN for PAIN-SEVERE (8-10) Oxycodone HCl (Oxycontin) 60 Mg Tab.er.12h 60 MG PO TID, TAB Discontinued Medications: Amlodipine Besylate (Norvasc) 5 Mg Tablet 5 MG PO DAILY, TAB Patient Instructions Goal/Follow Up Appt: Janay Rodrigez on @ 10 AM Patient Instructions: - Discontinued your Norvasc for your blood pressure because it has been running low - Holding your Lisinopril until seen in clinic - Make sure you are getting at least 64 oz of water daily Activity & Diet Discharge Diet: Soft Diet Activity as Tolerated: Yes RANDI RODRIGEZ MD May 02, 2021 11:03
[2021-05-02 11:14] VITALS: BP 98/47
== END 2021-05-02 11:55 | disposition home or self-care (01) | DRG 699 ==
LOC: EDUNIT# 12:52 → ER 12:54 → CSD 13:55
PROVIDERS: ADMIT Family Medicine; ATTEND Family Medicine
DX: N28.9 Disorder of kidney and ureter, unspecified (principal); C18.9 Malignant neoplasm of colon, unspecified; E87.1 Hypo-osmolality and hyponatremia; L03.90 Cellulitis, unspecified; E87.5 Hyperkalemia; R13.10 Dysphagia, unspecified; E86.0 Dehydration; I89.0 Lymphedema, not elsewhere classified; I10 Essential (primary) hypertension; E03.9 Hypothyroidism, unspecified; F17.210 Nicotine dependence, cigarettes, uncomplicated; Z92.21 Personal history of antineoplastic chemotherapy; M19.90 Unspecified osteoarthritis, unspecified site
CPT/HCPCS: 36415; 80048; 80053; 83690; 84100; 84550; 85007; 85025; 85027; 85610; 93005

== ENCOUNTER 2021-06-25 13:47 | Emergency (ER) | payer MEDICARE ==
[~2021-06-25] VITALS: Ht 167.7 cm; Wt 77.2 kg
[~2021-06-25 13:47] MED LIST changes: +ALBU2.5V4 INH; +AMLO5TAB4 PO; +CLIN300C12 PO; +ONDA8TAB13 PO; +OXYC10TA7 PO; +PANT40TA52 PO; +REGO40TA PO
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
[2021-06-25] MEDS ORDERED: NS IV 1000 ML 1,000 ML IV SCH (14:45)
[2021-06-25] MEDS ORDERED: fentaNYL INJ 100 MCG/2 ML AMP IVP ONE (14:45)
[2021-06-25 14:56] LABS: BASOPHILS # (AUTO) 0.1 10^3/uL (0.0-0.1); BASOPHILS % (AUTO) 1 % (0-10); EOSINOPHILS # (AUTO) 0.1 10^3/uL (0.0-0.3); EOSINOPHILS % (AUTO) 1 % (0-10); HEMATOCRIT 27 % (40-54); HEMOGLOBIN 8.7 g/dL (13.3-17.7); LYMPHOCYTES # (AUTO) 1.6 X 10^3 (1.0-4.0); LYMPHOCYTES % (AUTO) 18 % (12-44); MEAN CORPUSCULAR HEMOGLOBIN 27 pg (25-34); MEAN CORPUSCULAR HGB CONC 33 g/dL (32-36); MEAN CORPUSCULAR VOLUME 84 fL (80-99); MONOCYTES # (AUTO) 0.8 X 10^3 (0.0-1.0); MONOCYTES % (AUTO) 9 % (0-12); NEUTROPHILS # (AUTO) 6.6 X 10^3 (1.8-7.8); NEUTROPHILS % (AUTO) 71 % (42-75); PLATELET COUNT 210 10^3/uL (130-400); WHITE BLOOD COUNT 9.2 10^3/uL (4.3-11.0)
[2021-06-25 15:04] LABS: BILIRUBIN,URINE NEGATIVE (NEGATIVE); CLARITY,URINE CLEAR; COLOR,URINE YELLOW; GLUCOSE, URINE (UA) NEGATIVE (NEGATIVE); KETONES,URINE NEGATIVE (NEGATIVE); LEUKOCYTE ESTERASE ,URINE NEGATIVE (NEGATIVE); NITRITE,URINE NEGATIVE (NEGATIVE); PROTEIN,URINE 1+ (NEGATIVE)
[2021-06-25 15:09] LABS: ALBUMIN 3.1 GM/DL (3.2-4.5); POTASSIUM 5.7 MMOL/L (3.6-5.0)
[2021-06-25 15:10] LABS: CALCIUM 8.5 MG/DL (8.5-10.1)
[2021-06-25 15:11] LABS: TOTAL PROTEIN 7.1 GM/DL (6.4-8.2)
[2021-06-25 15:13] LABS: BILIRUBIN,TOTAL 0.3 MG/DL (0.1-1.0)
[2021-06-25 15:15] LABS: CREATININE SERUM 4.08 MG/DL (0.60-1.30)
[2021-06-25 15:22] LABS: INR 1.2 (0.8-1.4); PROTHROMBIN TIME PATIENT 15.6 SEC (12.2-14.7)
[2021-06-25 15:24] LABS: PARTIAL THROMBOPLASTIN TIME > 200 SEC (24-35)
[2021-06-25 15:28] LABS: AMORPHOUS SEDIMENT,UR MOD AMOR URATES /LPF; BACTERIA,URINE NEGATIVE /HPF; HYALINE CASTS, URINE 0-2 /LPF; RBC,URINE RARE /HPF; WBC,URINE 0-2 /HPF
--- NOTE | 2021-06-25 15:42 | Diagnostic Imaging Report ---
PROCEDURE: US gallbladder. TECHNIQUE: Multiple real-time grayscale images were obtained over the right upper quadrant in various projections. INDICATION: Increasing right upper quadrant pain. Patient does have known colon carcinoma with liver metastases. Liver is normal in size at 15.9 cm. Portal vein is patent and shows normal direction of flow. No definite liver mass is identified with ultrasound. Gallbladder does contain numerous stones. The gallbladder wall is borderline in thickness at 3 mm. No biliary ductal dilatation is seen. Pancreas is unremarkable. Aorta is ectatic but nonaneurysmal. IVC is patent. Right kidney is without calculi or hydronephrosis. There is no ascites. Patient did have a positive sonographic Pelayo sign. IMPRESSION: 1. Cholelithiasis and borderline gallbladder wall thickening. Patient did have a positive sonographic Pelayo sign. Cholecystitis cannot be excluded. Remainder of the study is unremarkable. Dictated by: Dictated on workstation # [id number]
[2021-06-25] MEDS ORDERED: NS IV 500 ML 500 ML IV ONE (16:30)
[2021-06-25 17:12] VITALS: BP 116/69
== END 2021-06-25 17:10 | disposition home or self-care (01) ==
LOC: EDUNIT# 13:47 → ER 13:49
DX: C78.7 Secondary malignant neoplasm of liver and intrahepatic bile duct (principal); K80.80 Other cholelithiasis without obstruction; E87.1 Hypo-osmolality and hyponatremia; I10 Essential (primary) hypertension; G89.29 Other chronic pain; Z79.899 Other long term (current) drug therapy; Z79.891 Long term (current) use of opiate analgesic
CPT/HCPCS: 36415; 76705; 80053; 81000; 83880; 85025; 85610; 85730; 96361; 96374

== ENCOUNTER 2021-06-27 14:40 | Outpatient (RCR) | payer MEDICARE ==
[~2021-06-27 14:40] MED LIST changes: +CLIN-144 PO; -CLIN300C12 PO
== END 2021-09-24 | disposition home or self-care (01) ==
LOC: LAB 14:40
PROVIDERS: ATTEND Nurse Practitioner
DX: C18.9 Malignant neoplasm of colon, unspecified (principal); K80.50 Calculus of bile duct without cholangitis or cholecystitis without obstruction; E86.0 Dehydration; Z79.899 Other long term (current) drug therapy
CPT/HCPCS: 36415; 84443; 87328; 87329

== ENCOUNTER → 2021-08-11 | Outpatient (CLI) | payer MEDICARE ==
[~2021-08-11] MED LIST changes: -CLIN-144 PO; +CLIN300C12 PO
[2021-08-11 11:25] LABS: BASOPHILS # (AUTO) 0.1 10^3/uL (0.0-0.1); BASOPHILS % (AUTO) 1 % (0-10); EOSINOPHILS # (AUTO) 0.3 10^3/uL (0.0-0.3); EOSINOPHILS % (AUTO) 3 % (0-10); HEMATOCRIT 29 % (40-54); HEMOGLOBIN 8.8 g/dL (13.3-17.7); LYMPHOCYTES # (AUTO) 1.9 10^3/uL (1.0-4.0); LYMPHOCYTES % (AUTO) 20 % (12-44); MEAN CORPUSCULAR HEMOGLOBIN 27 pg (25-34); MEAN CORPUSCULAR HGB CONC 30 g/dL (32-36); MEAN CORPUSCULAR VOLUME 90 fL (80-99); MONOCYTES # (AUTO) 0.9 10^3/uL (0.0-1.0); MONOCYTES % (AUTO) 9 % (0-12); NEUTROPHILS # (AUTO) 6.5 10^3/uL (1.8-7.8); NEUTROPHILS % (AUTO) 68 % (42-75); PLATELET COUNT 352 10^3/uL (130-400); WHITE BLOOD COUNT 9.6 10^3/uL (4.3-11.0)
[2021-08-11 11:40] LABS: ALBUMIN 3.2 GM/DL (3.2-4.5)
[2021-08-11 11:41] LABS: POTASSIUM 6.1 MMOL/L (3.6-5.0)
[2021-08-11 11:42] LABS: CALCIUM 9.4 MG/DL (8.5-10.1)
[2021-08-11 11:43] LABS: TOTAL PROTEIN 8.2 GM/DL (6.4-8.2)
[2021-08-11 11:45] LABS: BILIRUBIN,TOTAL 0.3 MG/DL (0.1-1.0)
[2021-08-11 11:47] LABS: CREATININE SERUM 2.69 MG/DL (0.60-1.30)
== END ==
LOC: LAB 11:06
PROVIDERS: ATTEND Family Medicine
DX: C18.9 Malignant neoplasm of colon, unspecified (principal); I89.0 Lymphedema, not elsewhere classified
CPT/HCPCS: 36415; 80053; 85025